=== PATIENT | male | born 1945 | race Caucasian/White ===

== ENCOUNTER 2019-04-02 19:52 | Emergency (ER) | payer OTHER ==
--- OUTSIDE RECORDS SUMMARY | 2019-04-02 19:54 | XMS REPORT ---
:1945 Author Organization [facility] Address [address] [place] [address] Dr. [address] [place] [address] Care Team Providers Name Role Phone Unavailable Unavailable Unavailable Problems This patient has no known problems. Allergies, Adverse Reactions, Alerts This patient has no known allergies or adverse reactions. Medications This patient has no known medications.
--- OUTSIDE RECORDS SUMMARY | 2019-04-02 19:54 | XMS REPORT | Summary of Care ---
:1945 Author Organization [facility] Address [address] [place] [address] Care Team Providers Name Role Phone Jack Alarcon Primary Care Provider Jack Alarcon Unavailable Reason for Referral Radiology Services (Routine) Status Reason Specialty Diagnoses / Referred By Referred To Procedures Contact Contact New Request Diagnostic Diagnoses Closed torus fracture of distal end of left fibula, initial encounter Kevin Serna, Radiology Procedures XR ANKLE <3 VW LEFT PAC [address] [place] [place] [address] Reason for Visit Reason Comments Follow-up Follow up visit on left ankle fx DOI: 01/16/2019 Encounter Details Date Type Department Care Team Description 03/13/2019 Office Visit [facility] Orthopaedic Kevin Serna, Closed torus fracture Surgery- [place] PAC of distal end of left [address], [address], initial [address] encounter (Primary Dx) [place] [address] [place], [place] [phone] [address] Allergies Active Allergy Reactions Severity Noted Date Comments Polio Virus Vaccines Rash Medium 01/01/2015 documented as of this encounter (statuses as of 03/13/2019) Medications Medication Sig Dispensed Refills Start Date End Date Status montelukast Take 10 mg by 0 Active (SINGULAIR) 10 mg mouth daily. tablet amLODIPine (NORVASC) 5 Take 5 mg by mouth 0 Active mg tablet 2 (two) times daily. PARoxetine mesylate Take 40 mg by 0 Active (PEXEVA) 40 mg tablet mouth daily. metoprolol tartrate Take 25 mg by 0 Active (LOPRESSOR) 25 mg mouth 2 (two) tablet times daily. irbesartan (AVAPRO) Take 300 mg by 0 Active 300 mg tablet mouth daily. fluticasone (FLONASE Use 2 Sprays in 0 Active ALLERGY RELIEF) 50 each nostril mcg/actuation nasal daily. spray tiotropium (SPIRIVA Inhale 18 mcg 0 Active WITH HANDIHALER) 18 daily. mcg inhalation fluticasone-salmeterol Inhale 1 Puff 2 0 Active (ADVAIR DISKUS) 250-50 (two) times daily. mcg/dose inhalation disk acetaminophen-codeine Take 1 Tab by 40 Tab 1 01/05/2015 Active (TYLENOL-CODEINE #3) mouth every 4 300-30 mg tablet (four) hours as needed for Pain (scale 4-6). DICLOFENAC 75 mg EC TAKE 1 TABLET BY 60 tablet 0 08/15/2016 Active tablet MOUTH TWICE A DAY acetaminophen-codeine Take 1 tablet by 40 tablet 0 01/23/2019 Active (TYLENOL-CODEINE #3) mouth every 4 300-30 mg (four) hours as tabletIndications: needed for Pain Closed torus fracture (scale 4-6) or of distal end of left Pain (scale 7-10). fibula, initial encounter documented as of this encounter (statuses as of 03/13/2019) Active Problems Problem Noted Date Bilateral knee pain 09/23/2015 Right hip pain 09/23/2015 documented as of this encounter (statuses as of 03/13/2019) Social History Tobacco Use Types Packs/Day Years Used Date Current Some Day Smoker Cigarettes 1.5 Smokeless Tobacco: Never Used Comments: Has one month since no smoking. Alcohol Use Drinks/Week oz/Week Comments Yes 0 Standard drinks or equivalent 0.0 Occasional Drinker Sex Assigned at Date Recorded Not on file Job Start Date Occupation Industry Not on file Not on file Not on file Travel History Travel Start Travel End No recent travel history available. documented as of this encounter Last Filed Vital Signs Vital Sign Reading Time Taken Comments Blood Pressure 125/79 03/13/2019 2:06 PM CDT Pulse 106 03/13/2019 2:06 PM CDT Temperature - - Respiratory Rate 18 03/13/2019 2:06 PM CDT Oxygen Saturation - - Inhaled Oxygen Concentration - - Weight 90.7 kg (200 lb) 03/13/2019 2:06 PM CDT Height 180.3 cm (5' 11") 03/13/2019 2:06 PM CDT Body Mass Index 27.89 03/13/2019 2:06 PM CDT documented in this encounter Progress Notes Kevin Serna, PAC - 03/13/2019 1:45 PM CDT Shawn Gant is a 73 year old male Chief Complaint Patient presents with Follow-up Follow up visit on left ankle fx DOI: 01/16/2019 Vitals: 03/13/19 1406 BP: 125/79 BP Location: Right arm Patient Position: Sitting BP CUFF SIZE: Adult Large Pulse: 106 Resp: 18 Weight: 90.7 kg (200 lb) Height: 71" (180.3 cm) [id number] [place] [place] [facility] All Vitals taken, allergies and all medications reviewed, fall risk assessed. Pain level 0/10. JOSEPH WISE MA 03/13/2019 2:11 PM Shawn Gant is a 73 year old male. F/u left ankle fracture date of injury 01/16/2019 8 weeks from date of injury. He came in with a walker today he has been using knee scooter and crutches, his appointment was rescheduled weightbearing as tolerated at this point. He arrived with crutches and a cast boot today he has a knee scooter that he uses at home having difficulty with crutches. tripped and fell at home over the threshold of the door. Dr. rocha sent in an order for plain x-rays at [facility] today the x-rays showed a fracture to his lateral malleolus and they sent him here he has not had a splint yet he has been weightbearing for the last week as tolerated. Allergies Shawn is allergic to polio virus vaccines. Medications Outpatient Medications Prior to Visit Medication Sig Dispense Refill acetaminophen-codeine (TYLENOL-CODEINE #3) 300-30 mg tablet Take 1 tablet by mouth every 4 (four) hours as needed for Pain (scale 4-6) or Pain (scale 7-10 ). 40 tablet 0 DICLOFENAC 75 mg EC tablet TAKE 1 TABLET BY MOUTH TWICE A DAY 60 tablet 0 acetaminophen-codeine (TYLENOL-CODEINE #3) 300-30 mg tablet Take 1 Tab by mouth every 4 (four) hours as needed for Pain (scale 4-6). 40 Tab 1 amLODIPine (NORVASC) 5 mg tablet Take 5 mg by mouth 2 (two) times daily. fluticasone (FLONASE ALLERGY RELIEF) 50 mcg/actuation nasal spray Use 2 Sprays in each nostril daily. fluticasone-salmeterol (ADVAIR DISKUS) 250-50 mcg/dose inhalation disk Inhale 1 Puff 2 (two) times daily. irbesartan (AVAPRO) 300 mg tablet Take 300 mg by mouth daily. metoprolol tartrate (LOPRESSOR) 25 mg tablet Take 25 mg by mouth 2 (two) times daily. montelukast (SINGULAIR) 10 mg tablet Take 10 mg by mouth daily. PARoxetine mesylate (PEXEVA) 40 mg tablet Take 40 mg by mouth daily. tiotropium (SPIRIVA WITH HANDIHALER) 18 mcg inhalation Inhale 18 mcg daily. No facility-administered medications prior to visit. Histories Past Medical History: Diagnosis Date Allergic rhinitis, cause unspecified Arthritis Asthma Bilateral knee pain 09/23/2015 COPD (chronic obstructive pulmonary disease) Hypertension Right hip pain 09/23/2015 Past Surgical History: Procedure Laterality Date FINGER ORIF Right HERNIA REPAIR KNEE ARTHROSCOPY KNEE ARTHROSCOPY Right 01/05/2015 Surgeon: Yan Church MD; Location: [facility] [place] DENTAL SURGERY PROCEDURE Social History Socioeconomic History Marital status: Spouse name: Not on file Number of children: Not on file Years of education: Not on file Highest education level: Not on file Occupational History Not on file Social Needs Financial resource strain: Not on file Food insecurity: Worry: Not on file Inability: Not on file Transportation needs: Medical: Not on file Non-medical: Not on file Tobacco Use Smoking status: Current Some Day Smoker Packs/day: 1.50 Types: Cigarettes Smokeless tobacco: Never Used Tobacco comment: Has one month since no smoking. Substance and Sexual Activity Alcohol use: Yes Alcohol/week: 0.0 oz Comment: Occasional Drinker Drug use: No Sexual activity: Not on file Lifestyle Physical activity: Days per week: Not on file Minutes per session: Not on file Stress: Not on file Relationships Social connections: Talks on phone: Not on file Gets together: Not on file Attends pentecostalism service: Not on file Active member of club or organization: Not on file Attends meetings of clubs or organizations: Not on file Relationship status: Not on file Intimate partner violence: Fear of current or ex partner: Not on file Emotionally abused: Not on file Physically abused: Not on file Forced sexual activity: Not on file Other Topics Concern Not on file Social History Narrative Not on file No family history on file. Review of Systems Constitutional: Negative. HENT: Negative. Eyes: Negative. Respiratory: Negative. Breasts: Negative. Cardiovascular: Negative. Gastrointestinal: Negative. Genitourinary: Negative. Musculoskeletal: Positive for joint swelling. Skin: Negative. Neurological: Negative. Psychiatric/Behavioral: Negative. Endocrine: Endocrine negative Vital Signs BP 125/79 (BP Location: Right arm, Patient Position: Sitting, BP CUFF SIZE: Adult Large) | Pulse 106 | Resp 18 | Ht 71" (180.3 cm) | Wt 90.7 kg (200 lb ) | BMI 27.89 kg/m Physical Exam Musculoskeletal: General: Well-developed well-nourished oriented to person place and time HEENT normocephalic atraumatic atraumatic pupils equal round reactive to light extraocular muscles intact Cervical thoracic and lumbar spine without focal deficit normal kyphosis and lordosis Chest clear to auscultation and percussion Cardiovascular regular rate and rhythm without gallop rub or murmur soft without organomegaly Normal bowel sounds Neurologic: Focal myotome or dermatomal deficits Vascular: Intact symmetrical bilateral upper and lower extremities Skin without stasis varicosities or breakdown Extremities without cyanosis clubbing or edema Lymphatics no peripheral lymphedema Psych normal mood and affect. Nontender malleolus Assessment/Plan 1. Closed torus fracture of distal end of left fibula, initial encounter XR ANKLE <3 VW LEFT Progressive wbat in boot then shoe Perform ankle range of motion in the pattern of the alphabet. This connects the brain to the ankle. Perform as many of the letter as of the alphabet as you can until you can without pain until you can do the entire alphabet. Then start ankle strengthening by getting the weakest theraband at the sporting goods store or at your pharmacy, start with pressing down like a gas pedal ankle flexion, then tie a loop with the Theraband and put the loop on the side of the foot move the foot laterally then putthe loop on the other side. Tie the Therapy band to a fixed object such as a table leg. The foot - move the foot medially. Then put the loop on the top of the foot pick the foot up these are for directions up down left and right perform in sets of 10. Do as many sets of 10. As you can without painuntil you can do 8 sets of 10. documented in this encounter Plan of Treatment Health Maintenance Due Date Last Done Comments HEPATITIS C (HCV) SCREEN 1945 DTaP,Tdap,and Td Vaccines (1 - Tdap) 1966 COLONOSCOPY 1997 Zoster Recombinant Vaccine (SHINGRIX) (1 of 2) 1997 LUNG CANCER SCREEN: Recommended for age 55-80 with 30 + 2002 pack year history Medicare Wellness Visit 2012 PNEUMOCOCCAL VACCINES 65+ (1 of 2 - PCV13) 2012 INFLUENZA VACCINE (#1) 2019 documented as of this encounter Results XR ANKLE <3 VW LEFT (03/13/2019 2:17 PM CDT) Specimen Narrative Performed At Good signs of callus formation there has been a slight shift in the PACS mortise but it is set at this point. Performing Organization Address City/State/Zipcode Phone Number PACS documented in this encounter Visit Diagnoses Diagnosis Closed torus fracture of distal end of left fibula, initial encounter - Primary documented in this encounter Insurance Payer Benefit Plan / Subscriber ID Effective Phone Address Type Group Dates MEDICARE MEDICARE PART xxxxxxxxxxx 2012-Pre [phone] Medicare A & B sent [id number] [place] [phone] [facility] [id number] 2014-Pres [employer] GROUP documented as of this encounter
--- OUTSIDE RECORDS SUMMARY | 2019-04-02 19:54 | XMS REPORT | Summary of Care ---
:1945 Author Organization [facility] Address [address] [place] [address] Care Team Providers Name Role Phone Jack Alarcon Primary Care Provider Jack Alarcon Unavailable Reason for Referral Radiology Services (Routine) Status Reason Specialty Diagnoses / Referred By Referred To Procedures Contact Contact New Request Diagnostic Diagnoses Closed torus fracture of distal end of left fibula, initial encounter Kevin Serna, Radiology Procedures XR ANKLE <3 VW LEFT PAC [address] [place] [address] [place] [address] Reason for Visit Reason Comments Follow-up Follow up visit on left ankle fx DOI: 01/16/2019 Encounter Details Date Type Department Care Team Description 03/13/2019 Office Visit [facility] Orthopaedic Kevin Serna, Closed torus fracture Surgery- [place] PAC of distal end of left [address], [address], [address] encounter (Primary Dx) [place] [address] [place], [place] [phone] [address] Allergies Active Allergy Reactions Severity Noted [...] Height: 71" (180.3 cm) [id number] [place] [place] [facility] All Vitals taken, allergies and [...] in an order for plain x-rays at [facility] today the x-rays showed a fracture [...] Right 01/05/2015 Surgeon: Yan Church MD; Location: [facility] [place]GERY PROCEDURE Social History Socioeconomic History [...] file Gets together: Not on file Attends confucianism service: Not on file Active member of [...] BOX Medicare A & B sent [id number] [place] [id number] [facility] [id number] 2014-Pres [employer] GROUP documented as of this encounter
--- OUTSIDE RECORDS SUMMARY | 2019-04-02 19:55 | XMS REPORT | Summary of Care ---
:1945 Author Organization [facility] Address [address] [place] [address] Care Team Providers Name Role Phone Jack Alarcon Primary Care Provider Jack Alarcon Unavailable Reason for Referral Radiology Services (Routine) Status Reason Specialty Diagnoses / Referred By Referred To Procedures Contact Contact New Request Diagnostic Diagnoses Closed torus fracture of distal end of left fibula, initial encounter Kevin Serna, Radiology Procedures XR ANKLE <3 VW LEFT PAC [address] [place] [address] [place] [address] Reason for Visit Reason Comments Follow-up Follow up visit on left ankle fx DOI: 01/16/2019 Encounter Details Date Type Department Care Team Description 03/13/[address] [facility] Orthopaedic Kevin Serna, Closed torus fracture Surgery- [place] PAC of distal end of left [address], [address], [address] encounter (Primary Dx) [place] [address] [place], [place] [phone] Allergies Active Allergy Reactions Severity Noted [...] CDT documented in this encounter Progress Notes Kevni Serna, PAC - 03/13/2019 1:45 PM CDT Shawn Gant is a 73 year old male Chief Complaint Patient presents with Follow-up Follow up visit on left ankle fx DOI: 01/16/2019 Vitals: 03/13/19 1406 BP: 125/79 BP Location: Right arm Patient Position: Sitting BP CUFF SIZE: Adult Large Pulse: 106 Resp: 18 Weight: 90.7 kg (200 lb) Height: 71" (180.3 cm) [id number] [place] [place] [facility] All Vitals taken, allergies and all medications [...] in an order for plain x-rays at [facility] today the x-rays showed a fracture [...] Right 01/05/2015 Surgeon: Yan Church MD; Location: [facility] [place] D[facility]GERY PROCEDURE Social History Socioeconomic History [...] file Gets together: Not on file Attends yazidi service: Not on file Active member of [...] BOX Medicare A & B sent [id number] [place]AVE[place] [phone] [facility] [id number] 2014-Pres [employer] documented as of this encounter
--- OUTSIDE RECORDS SUMMARY | 2019-04-02 19:55 | XMS REPORT | Summary of Care ---
:[address] [facility] Address [address] [place] [address] Care Team Providers Name Role Phone Jack Alarcon Primary Care Provider Jack Alarcon Unavailable Reason for Visit Reason Comments Assessment Encounter Details Date Type Department Care Team Description 03/29/2019 Telephone [facility] Orthopaedic Yan Church MD Assessment Surgery- [place] [address] [facility] [address] [facility], [place] [address] [place] [address] [place] [address] Allergies Active Allergy Reactions Severity Noted Date Comments Polio Virus Vaccines Rash Medium 01/01/2015 documented as of this encounter (statuses as of 04/02/2019) Medications Medication Sig Dispensed Refills Start Date [...] as of this encounter (statuses as of 04/02/2019) Active Problems Problem Noted Date Bilateral knee pain 09/23/2015 Right hip pain 09/23/2015 documented as of this encounter (statuses as of 04/02/2019) Social History Tobacco Use Types Packs/Day Years [...] of this encounter Last Filed Vital Signs Not on filedocumented in this encounter Plan of Treatment Health [...] 2019 documented as of this encounter Results Not on filedocumented in this encounter Insurance Payer Benefit Plan / Subscriber ID Effective Phone Address Type Group Dates MEDICARE MEDICARE PART xxxxxxxxxxx 2012-Pre [phone] Medicare A & B sent [id number] [place] [id number] [facility] [id number] 2014-Pres [employer] GROUP documented as of this encounter
--- OUTSIDE RECORDS SUMMARY | 2019-04-02 19:55 | XMS REPORT | Summary of Care ---
:1945 Author Organization [facility] Address [address] [place] [address] Care Team Providers Name Role Phone Jack Alarcon Primary Care Provider Jack Alarcon Unavailable Reason for Visit Radiology Services (Routine) Status Reason Specialty Diagnoses / Referred By Referred To Procedures Contact Contact New Request Diagnostic Diagnoses Closed torus fracture of distal end of left fibula, initial encounter Kevin Serna, Radiology Procedures XR ANKLE <3 VW LEFT PAC [address] [place] [address] Encounter Details Date Type Department Care Team Description 03/13/2019 Hospital Encounter [facility] Kevin Serna, [facility] Orthopedics - PAC Radiology [address] [place] [address] [place], [place] [phone] Allergies Active Allergy Reactions Severity Noted Date Comments Polio Virus Vaccines Rash Medium 01/01/2015 documented as of this encounter (statuses as of 03/14/2019) Medications Medication Sig Dispensed Refills Start Date [...] as of this encounter (statuses as of 03/14/2019) Active Problems Problem Noted Date Bilateral knee pain 09/23/2015 Right hip pain 09/23/2015 documented as of this encounter (statuses as of 03/14/2019) Social History Tobacco Use Types Packs/Day Years [...] (#1) 2019 documented as of this encounter Procedures Procedure Name Priority Date/Time Associated Diagnosis Comments XR ANKLE <3 VW LEFT Routine 03/13/2019 2:17 PM Closed torus Results for this CDT fracture of distal procedure are in end of left fibula, the results initial encounter section. documented in this encounter Results XR ANKLE <3 VW LEFT (03/13/2019 2:17 PM CDT) Specimen Narrative Performed At Good signs of callus formation there has been a slight shift in the PACS mortise but it is set at this point. Performing Organization Address City/State/[facility] Centercode Phone Number PACS documented in this encounter Visit Diagnoses Diagnosis Closed torus fracture of distal end of left fibula, initial encounter documented in this encounter Insurance Payer Benefit Plan / Subscriber ID Effective Phone Address Type Group Dates MEDICARE MEDICARE PART xxxxxxxxxxx 2012-Pre [phone] Medicare A & B sent [id number] [place] [id number] [facility] [id number] 2014-Pres [employer] GROUP documented as of this encounter
[2019-04-02] MEDS ORDERED: TETANUS & DIPHTHERIA TOX,ADULT 0.5 ML VIAL ONE (20:23)
[2019-04-02] MEDS ORDERED: LIDOCAINE 1% MPF 30 ML VIAL ONE (20:23)
--- NOTE | 2019-04-02 21:01 | RAD REPORT ---
EXAM DESCRIPTION: CT - Head Brain Wo Cont - 04/02/2019 8:33 pm CLINICAL HISTORY: Head injury status post fall COMPARISON: November 2018 TECHNIQUE: Computed axial tomography of the head was obtained. IV contrast was not requested. All CT scans are performed using dose optimization technique as appropriate and may include automated exposure control or mA/KV adjustment according to patient size. FINDINGS: Right frontal scalp laceration. There may be a right orbital floor fracture An intracranial bleed is not seen . Mild low-density areas within periventricular, deep and subcorti lawanda white matter likely ischemic changes secondary to small vessel disease The ventricles are normal in caliber. No extra-axial fluid collection is noted. Fluid right maxillary sinus. IMPRESSION: No acute intracranial abnormality is seen. If patient's symptoms persist MRI of the bra in would be recommended. There may be a right orbital floor fracture. CT face recommended
[2019-04-02] MEDS ORDERED: LIDOCAINE 1% W/EPI 1:100,000 MDV 20 ML VIAL ONE (21:12)
--- NOTE | 2019-04-02 22:09 | ER ---
Nurse's Notes [facility] Name: Shawn Gant Age: 73 yrs Sex: Male : 1945 Arrival Date: 04/02/2019 Time: 19:55 Bed 23 Private MD: Diagnosis: Laceration without foreign body of other part of head;Fracture of orbital floor Presentation: 04/02 20:07 Presenting complaint: Patient states: foot gave out and landed on the hardwood floor. ch laceration to above R eye. Transition of care: patient was not received from another setting of care. Onset of symptoms was April 02, 2019 at 19:50. Risk Assessment: Do you want to hurt yourself or someone else? Patient reports no desire to harm self or others. Initial Sepsis Screen: Does the patient meet any 2 criteria? No. Patient's initial sepsis screen is negative. Does the patient have a suspected source of infection? No. Patient's initial sepsis screen is negative. Care prior to arrival: None. 20:07 Method Of Arrival: Ambulatory 20:07 Acuity: MARIO 4 ch Triage Assessment: 20:09 General: Appears in no apparent distress. comfortable, Behavior is calm, cooperative, ch appropriate for age. Pain: Complains of pain in forehead and right eye Pain currently is 4 out of 10 on a pain scale. Neuro: No deficits noted. Respiratory: No deficits noted. Derm: Skin is intact, Skin is pink, warm \T\ dry. Historical: - Allergies: 20:09 Polio Virus Vaccines; - Home Meds: 20:19 blood pressure medication [Active]; - PMHx: 20:19 Hypertension; COPD; mild; - PSHx: 20:09 Knee surgery; Hernia repair; 20:19 elbow wound, L pinky finger; hip replacement; - Immunization history:: Adult Immunizations not up to date, Last tetanus immunization: unknown. - Social history:: Smoking status: Patient/guardian denies using tobacco. - Ebola Screening: : Patient negative for fever greater than or equal to 101.5 degrees Fahrenheit, and additional compatible Ebola Virus Disease symptoms Patient denies exposure to infectious person Patient denies travel to an Ebola-affected area in the 21 days before illness onset No symptoms or risks identified at this time. Screenin:53 Abuse screen: Denies threats or abuse. Denies injuries from another. Nutritional screening: No deficits noted. Tuberculosis screening: No symptoms or risk factors identified. Fall Risk Fall in past 12 months (25 points). No secondary diagnosis (0 pts). No IV (0 pts). Ambulatory Aid- None/Bed Rest/Nurse Assist (0 pts). Gait- Weak (10 pts.). Mental Status- Oriented to own ability (0 pts). Total Cooper Fall Scale indicates Low Risk Score (25-44 pts). Fall prevention measures have been instituted. Placed close to Nursing Station Frequent Obs/Assesments occuring Family Present and informed to notify staff if they need to leave bedside As available Patient and Family Educated on Fall Prevention Program and strategies. Assessment: 20:49 Reassessment: Patient appears in no apparent distress at this time. Patient and/or family updated on plan of care and expected duration. Pain level reassessed. Patient is alert, oriented x 3, equal unlabored respirations, skin warm/dry/pink. pt returned from CT, awaiting results prior to physician suturing pt. suture set up at bedside. 21:13 Reassessment: Patient appears in no apparent distress at this time. No changes from previously documented assessment. Patient and/or family updated on plan of care and expected duration. Pain level reassessed. Patient is alert, oriented x 3, equal unlabored respirations, skin warm/dry/pink. AWAITING CT FACE PRIOR TO PHYSICIAN SUTURING PT. Vital Signs: 20:09 BP 114 / 78; Pulse 85; Resp 14; Pulse Ox 100% on R/A; Pain 4/10; ch 21:13 BP 110 / 64; Pulse 80; Resp 14; Temp 98.8; Pulse Ox 99% on R/A; Pain 5/10; ch 22:00 BP 127 / 74; Pulse 75; Resp 16; Pulse Ox 99% on R/A; lc1 Akhil Coma Score: 22:04 Eye Response: spontaneous(4). Verbal Response: oriented(5). Motor Response: obeys gs commands(6). Total: 15. ED Course: 19:55 Patient arrived in ED. cf2 20:02 Dee Dee Kenyon, FIONA is Primary Nurse. 20:05 Tyson Rodas MD is Attending Physician. gs 20:08 Triage completed. 20:09 Arm band placed on left wrist. Patient placed in an exam room, on a stretcher. 20:33 CT completed. Patient tolerated procedure well. Patient moved to CT. Patient moved back az from CT. 20:34 CT Head Brain wo Cont In Process Unspecified. EDMS 21:43 CT Facial Bones W/O Con In Process Unspecified. EDMS 21:53 No apparent distress. Resting quietly. 21:53 Patient has correct armband on for positive identification. Bed in low position. Call light in reach. Side rails up X 1. Adult w/ patient. Report given to Kenia. Pulse ox on. NIBP on. Door closed. Noise minimized. Warm blanket given. 21:53 Patient did not have IV access during this emergency room visit. 22:10 Assist provider with laceration repair on outer aspect of right eyebrow Performed by 1 Tyson Rodas MD. 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 Exp: 11/27/2020. Lot #: [id number]. } Route: IM; Site: left deltoid; 22:09 Follow up: Response: No adverse reaction [facility] Outcome: 22:08 Discharge ordered by . 22:10 Discharged to home ambulatory, with significant other. [facility] 22:10 Condition: good 22:10 Discharge instructions given to patient, Instructed on discharge instructions, medication usage, wound care, Demonstrated understanding of instructions, follow-up care, medications, wound care, Prescriptions given X 1. 22:21 Patient left the ED. [facility] Signatures: Dispatcher [employer] EDWY Dee Dee Kenyon, FIONA JAIMES Kenia Hearn 1 Epi Aguilera Gregory, MD MD Darius Lee 2
--- NOTE | 2019-04-02 22:10 | EDPHYS ---
Physician Documentation [facility] Name: Shawn Gant Age: 73 yrs Sex: Male : 1945 Arrival Date: 04/02/2019 Time: 19:55 Bed 23 Private MD: ED Physician Tyson Rodas HPI: 04/02 22:04 This 73 yrs old Male presents to ER via Ambulatory with complaints of LAC TO gs EYE. 22:04 The complaints affect the middle aspect of right eyebrow and outer aspect of right gs eyebrow. Context of injury: resulted from a fall, while walking. Onset: The symptoms/episode began/occurred acutely, just prior to arrival. Associated signs and symptoms: Loss of consciousness: This patient did not experience any loss of consciousness. Pertinent negatives: biting tongue, shortness of breath, weakness in extremities, syncope. Severity of symptoms: At their worst the symptoms were moderate, in the emergency department the symptoms are unchanged. The patient has not experienced similar symptoms in the past. Historical: - Allergies: 20:09 Polio Virus Vaccines; ch - Home Meds: 20:19 blood pressure medication [Active]; ch - PMHx: 20:19 Hypertension; COPD; mild; ch - PSHx: 20:09 Knee surgery; Hernia repair; 20:19 elbow wound, L pinky finger; hip replacement; - Immunization history:: Adult Immunizations not up to date, Last tetanus immunization: unknown. - Social history:: Smoking status: Patient/guardian denies using tobacco. - Ebola Screening: : Patient negative for fever greater than or equal to 101.5 degrees Fahrenheit, and additional compatible Ebola Virus Disease symptoms Patient denies exposure to infectious person Patient denies travel to an Ebola-affected area in the 21 days before illness onset No symptoms or risks identified at this time. ROS: 22:04 All other systems are negative. gs Exam: 22:04 Eyes: Pupils equal round and reactive to light, extra-ocular motions intact. Lids and gs lashes normal. Conjunctiva and sclera are non-icteric and not injected. Cornea within normal limits. Periorbital areas with no swelling, redness, or edema. ENT: Nares patent. No nasal discharge, no septal abnormalities noted. Tympanic membranes are normal and external auditory canals are clear. Oropharynx with no redness, swelling, or masses, exudates, or evidence of obstruction, uvula midline. Mucous membranes moist. Neck: Trachea midline, no thyromegaly or masses palpated, and no cervical lymphadenopathy. Supple, full range of motion without nuchal rigidity, or vertebral point tenderness. No Meningismus. Chest/axilla: Normal chest wall appearance and motion. Nontender with no deformity. No lesions are appreciated. Cardiovascular: Regular rate and rhythm with a normal S1 and S2. No gallops, murmurs, or rubs. Normal PMI, no JVD. No pulse deficits. Respiratory: Lungs have equal breath sounds bilaterally, clear to auscultation and percussion. No rales, rhonchi or wheezes noted. No increased work of breathing, no retractions or nasal flaring. Abdomen/GI: Soft, non-tender, with normal bowel sounds. No distension or tympany. No guarding or rebound. No evidence of tenderness throughout. Back: No spinal tenderness. No costovertebral tenderness. Full range of motion. Skin: Warm, dry with normal turgor. Normal color with no rashes, no lesions, and no evidence of cellulitis. MS/ Extremity: Pulses equal, no cyanosis. Neurovascular intact. Full, normal range of motion. Neuro: Awake and alert, GCS 15, oriented to person, place, time, and situation. Cranial nerves II-XII grossly intact. Motor strength 5/5 in all extremities. Sensory grossly intact. Cerebellar exam normal. Normal gait. 22:04 Constitutional: The patient appears alert, awake. 22:04 Head/face: Noted is a laceration(s), that is deep, 5 cm(s). Vital Signs: 20:09 BP 114 / 78; Pulse 85; Resp 14; Pulse Ox 100% on R/A; Pain 4/10; ch 21:13 BP 110 / 64; Pulse 80; Resp 14; Temp 98.8; Pulse Ox 99% on R/A; Pain 5/10; ch 22:00 BP 127 / 74; Pulse 75; Resp 16; Pulse Ox 99% on R/A; lc1 Akhil Coma Score: 22:04 Eye Response: spontaneous(4). Verbal Response: oriented(5). Motor Response: obeys gs commands(6). Total: 15. Laceration: 22:04 Wound Repair of 5.5cm ( 2.2in ) muscle penetrating laceration to outer aspect of right gs eyebrow. Distal neuro/vascular/tendon intact. Anesthesia: Local anesthetic administered with 3 mls of 1% lidocaine w/ Epi. Wound prep: Simple cleansing with betadine, Wound irrigation by me. Subcutaneous tissue closed with 4 4-0 Vicryl using simple sutures and sterile technique. Skin closed with 8 5-0 Prolene using simple sutures and sterile technique. Patient tolerated well. MDM: 20:12 Patient medically screened. 22:04 Differential diagnosis: Hematoma on Laceration of Intracranial bleed- Concussion. Data reviewed: vital signs, nurses notes, radiologic studies. Counseling: I had a detailed discussion with the patient and/or guardian regarding: the historical points, exam findings, and any diagnostic results supporting the discharge/admit diagnosis, the need for outpatient follow up. 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 Exp: 11/27/2020. Lot #: [id number]. } Route: IM; Site: left deltoid; 22:09 Follow up: Response: No adverse reaction [facility] Disposition: 04/02/19 22:08 Discharged to Home. Impression: Laceration without foreign body of other part of head, Fracture of orbital floor. - Condition is Stable. - Discharge Instructions: Laceration Care, Adult, [id number]. - Prescriptions for Keflex 500 mg Oral Capsule - take 1 capsule by ORAL route every 12 hours for 7 days; 14 capsule. - Medication Reconciliation Form, Thank You Letter, Antibiotic Education, Prescription Opioid Use form. - Follow up: Private Physician; When: 1 week; Reason: Staple/Suture removal. Signatures: Dispatcher [employer] EDDee Dee Frankel RN RN Kenia Hearn 1 Tyson Rodas MD MD Corrections: (The following items were deleted from the chart) 22:21 22:08 04/02/2019 22:08 Discharged to Home. Impression: Laceration without foreign body lc1 of other part of head; Fracture of orbital floor. Condition is Stable. Forms are Medication Reconciliation Form, Thank You Letter, Antibiotic Education, Prescription Opioid Use. Follow up: Private Physician; When: 1 week; Reason: Staple/Suture removal. gs
[2019-04-02 22:27] VITALS: TEMP 98.8; O2SAT 99
[2019-04-02 22:29] VITALS: BP 127/74
--- NOTE | 2019-04-03 10:07 | RAD REPORT ---
EXAM DESCRIPTION: CT - Facial Bones W/ Mpr - 04/02/2019 9:36 pm CLINICAL HISTORY: FACIAL PAIN TECHNIQUE: Axial computed tomography images of the face without intravenous contrast. Sagittal and coronal reformatted images were created and reviewed. This CT exam was performed using one or more of the following dose reduction techniques: automated exposure control, adjustment of the mA and/o r kV according to patient size, and/or use of iterative reconstruction technique. COMPARISON: No relevant prior studies available. FINDINGS: Limitations: None. Bones/joints: There is subtle fracture of a few of the right anterior ethmoid air cells. There is fracture of the right orbital floor with about 2 mm depression of a small fragment. Involvement of the lamina papyracea posteriorly not excluded. No entrapment. Mild apical erosion of the left teeth numbers 19 and 20. No fracture. Soft tissues: There is a small right frontal scalp laceration. Orbits: Unremarkable. Sinuses: There is chronic bilateral maxillary and ethmoid sinus thickening. There is probable superimposed mild hemorrhage within the right maxillary sinus. IMPRESSION: 1. There is a small right frontal scalp laceration. 2. Acute fracture right orbit and ethmoid air cells as above. Electronically signed by: Valerie Nino MD 04/02/2019 9:54 PM CDT Due to temporary technical issues with the PACS/Fluency reporting system, reports are being signed by the in house radiologist as a courtesy to ensure prompt reporting. The interpreting radiologist is f ully responsible for the content of the report.
== END 2019-04-02 22:21 | disposition home or self-care (01) ==
LOC: ER 19:52
PROC: 0JQ10ZZ Repair Face Subcutaneous Tissue and Fascia, Open Approach (ICD-10-PCS; principal; 2019-04-02)
DX: S02.31XA Fracture of orbital floor, right side, initial encounter for closed fracture (principal); S01.81XA Laceration without foreign body of other part of head, initial encounter; I10 Essential (primary) hypertension; W18.30XA Fall on same level, unspecified, initial encounter; Y93.9 Activity, unspecified; Y92.019 Unspecified place in single-family (private) house as the place of occurrence of the external cause; Z23 Encounter for immunization
CPT/HCPCS: 70450; 70486; 76377; 90471; 90714; 99284

== ENCOUNTER 2020-01-08 23:58 | Inpatient (IN) | payer OTHER ==
--- OUTSIDE RECORDS SUMMARY | 2020-01-09 | XMS REPORT | Continuity of Care Document ---
:1945 Author Organization [facility] t Address [address] [place] [address] Care Team Providers Name Role Phone Je Church MD Attending Clinician Alirio Ashford Attending Clinician Problems This patient has no known problems. Allergies, Adverse Reactions, Alerts This patient has no known allergies or adverse reactions. Medications This patient has no known medications. Procedures This patient has no known procedures. Encounters Start End Encounter Admission Attending Care Care Encounter Source Date/Time Date/Time Type Type Clinicians Facility Department ID 2019-03-29 2019-03-29 Telephone Church, [facility] [id number] 00:00:00 00:00:00 [facility] Laiya[place]ao [id number] Surgical [id number] Specialti [id number] [address] [place] 2019-03-13 2019-03-13 [facility] [id number] 14:17:47 23:59:00 Encounter Kevin Amezquita Laiyaoyao [id number] Surgical [id number] Specialti [id number] [address] [place] 2019-03-13 2019-03-13 Office [facility] [id number] 14:01:05 14:50:54 Visit Kevin Amezquita Laiyaoyao [id number] Surgical [id number] Specialti [id number] [address] Results This patient has no known results.
[2020-01-09] MEDS ORDERED: METHYLPREDNISOLONE 125 MG INJ ONE (00:41)
[2020-01-09] MEDS ORDERED: NA CHLORIDE 0.9% 1,000 ML ONE ×3 (00:42→05:27)
[2020-01-09] MEDS ORDERED: IPRATROPIUM BROM 0.5MG/2.5ML ONE (00:42)
[2020-01-09] MEDS ORDERED: ACETAMINOPHEN 500 MG TAB ONE (00:42)
[2020-01-09] MEDS ORDERED: LEVALBUTEROL 1.25 MG/3 ML NEB ONE ×2 (00:42→02:58)
[2020-01-09 01:08] LABS: Absolute Lymphocytes (CBC) 2.8 K/uL (0.7-4.9); Basophils % 0.7 % (0-1.3); Hematocrit 46.8 % (39.6-49.0); Lymphocytes % 20.7 % (15.3-44.8); RBC Red Blood Cell Count 4.93 M/uL (4.33-5.43)
--- NOTE | 2020-01-09 01:20 | EDPHYS ---
Physician Documentation [facility] Name: Shawn Gant Age: 74 yrs Sex: Male : 1945 Arrival Date: 01/09/2020 Time: 00:00 Bed 19 Private MD: ED Physician Enoc Cadena HPI: 01/08 00:30 This 74 yrs old Male presents to ER via Wheelchair with complaints of marcial Shortness Of Breath, Fever, Vomiting, Chills. 00:30 The patient has shortness of breath at rest, with light activity. Onset: The marcial symptoms/episode began/occurred last night. Duration: The symptoms are continuous, and are steadily getting worse. The patient's shortness of breath is aggravated by coughing, light activity. Associated signs and symptoms: The patient has no apparent associated signs or symptoms. Severity of symptoms: At their worst the symptoms were moderate in the emergency department the symptoms are unchanged. The patient has not experienced similar symptoms in the past. Historical: - Allergies: 00:26 Polio Virus Vaccines; lp1 - Home Meds: 01:01 Xanax Oral [Active]; increse elipta [Active]; paroxetine oral oral [Active]; Metoprolol tl1 Tartrate Oral [Active]; amlodipine oral [Active]; montelukast oral oral [Active]; Folbic oral oral [Active]; Advair Diskus 250-50 mcg/dose Inhl dsdv [Active]; fluticasone [Active]; irbesartan oral oral [Active]; loratadine oral oral [Active]; - PMHx: 00:26 COPD; mild; Hypertension; Borderline DM; lp1 - PSHx: 00:26 hip surgery; Hernia repair; elbow surgery; Knee surgery; lp1 - Immunization history:: Adult Immunizations up to date. - Social history:: Smoking status: Patient/guardian denies using tobacco, the patient reports quitting approximately 5 years ago. ROS: 00:31 Eyes: Negative for injury, pain, redness, and discharge, ENT: Negative for injury, marcial pain, and discharge, Neck: Negative for injury, pain, and swelling, Cardiovascular: Negative for chest pain, palpitations, and edema, Abdomen/GI: Negative for abdominal pain, nausea, vomiting, diarrhea, and constipation, Back: Negative for injury and pain, : Negative for injury, bleeding, discharge, and swelling, MS/Extremity: Negative for injury and deformity, Skin: Negative for injury, rash, and discoloration, Psych: Negative for depression, anxiety, suicide ideation, homicidal ideation, and hallucinations, Allergy/Immunology: Negative for hives, rash, and allergies, Endocrine: Negative for neck swelling, polydipsia, polyuria, polyphagia, and marked weight changes, Hematologic/Lymphatic: Negative for swollen nodes, abnormal bleeding, and unusual bruising. 00:31 Constitutional: Positive for fever. 00:31 Respiratory: Positive for cough, wheezing, inspiratory, expiratory. 00:31 MS/extremity: Negative for acute changes, decreased range of motion, swelling, tenderness. Exam: 00:31 Constitutional: This is a well developed, well nourished patient who is awake, alert, marcial and in no acute distress. Head/Face: Normocephalic, atraumatic. Eyes: Pupils equal round and reactive to light, extra-ocular motions intact. Lids and lashes normal. Conjunctiva and sclera are non-icteric and not injected. Cornea within normal limits. Periorbital areas with no swelling, redness, or edema. ENT: Nares patent. No nasal discharge, no septal abnormalities noted. Tympanic membranes are normal and external auditory canals are clear. Oropharynx with no redness, swelling, or masses, exudates, or evidence of obstruction, uvula midline. Mucous membranes moist. Neck: Trachea midline, no thyromegaly or masses palpated, and no cervical lymphadenopathy. Supple, full range of motion without nuchal rigidity, or vertebral point tenderness. No Meningismus. Chest/axilla: Normal chest wall appearance and motion. Nontender with no deformity. No lesions are appreciated. Abdomen/GI: Soft, non-tender, with normal bowel sounds. No distension or tympany. No guarding or rebound. No evidence of tenderness throughout. Back: No spinal tenderness. No costovertebral tenderness. Full range of motion. Male : Normal genitalia with no discharge or lesions. Skin: Warm, dry with normal turgor. Normal color with no rashes, no lesions, and no evidence of cellulitis. MS/ Extremity: Pulses equal, no cyanosis. Neurovascular intact. Full, normal range of motion. Neuro: Awake and alert, GCS 15, oriented to person, place, time, and situation. Cranial nerves II-XII grossly intact. Motor strength 5/5 in all extremities. Sensory grossly intact. Cerebellar exam normal. Normal gait. Psych: Awake, alert, with orientation to person, place and time. Behavior, mood, and affect are within normal limits. 00:31 Cardiovascular: Rate: tachycardic, Rhythm: regular, Pulses: Pulses are 4+ in bilateral radial, brachial, femoral, popliteal, posterior tibial and and dorsalis pedis arteries.. Heart sounds: normal, Edema: is not appreciated, JVD: is not appreciated. 00:31 Respiratory: the patient does not display signs of respiratory distress, Respirations: labored breathing, that is mild, Breath sounds: decreased breath sounds, rhonchi, wheezing: inspiratory expiratory Respiratory rate: 24 00:31 Musculoskeletal/extremity: DVT Exam: No signs of deep vein thrombosis. no pain, no swelling, no tenderness, negative Homans' sign noted on exam, no appreciated bluish discoloration, no erythema, no increased warmth. 00:42 ECG was reviewed by the Attending Physician. [facility] 04:26 ECG was reviewed by the Attending Physician. [facility] Vital Signs: 00:21 BP 158 / 112; Pulse 146; Resp 24; Temp 100(O); Pulse Ox 96% on R/A; Weight 95.25 kg lp1 (R); Height 5 ft. 11 in. (180.34 cm); 01:30 BP 137 / 76; Pulse 133; Resp 24; Pulse Ox 98% on 2 lpm NC; lp1 02:00 BP 135 / 88; Pulse 141; Resp 25; Pulse Ox 93% on 2 lpm NC; lp1 02:30 BP 145 / 87; Pulse 136; Resp 24; Pulse Ox 94% on 2 lpm NC; lp1 03:00 BP 148 / 86; Pulse 129; Resp 20; Pulse Ox 92% on 2 lpm NC; lp1 04:00 BP 129 / 79; Pulse 120; Resp 22; Pulse Ox 95% on 2 lpm NC; lp1 00:21 Body Mass Index 29.29 (95.25 kg, 180.34 cm) 1 MDM: 00:15 Patient medically screened. [facility] 00:33 Data reviewed: vital signs, nurses notes, old medical records, lab test result(s), EKG, [facility] radiologic studies, plain films. 00:34 Differential diagnosis: asthma, CHF exacerbation, Chronic Obstructive Pulmonary Disease marcial bronchitis, flu, URI, pneumonia, pulmonary edema, Sepsis. Antibiotic administration: Rocephin and Zithromax given. The patient's [place] Deep Vein Thrombosis Score was calculated as follows: Previous DVT/PE (1.5 Pts) Total Score: 0-2 Pts- Low Risk. The patient's pulmonary embolism risk score was calculated as follows: the patients heart rate is greater than 100 beats per minute (1.5 Pts) Total Score: 0-2 points. This patient was found to be at low risk for a pulmonary embolism by using the Well's assessment criteria. Immunization status: Pneumococcal vaccine: Influenza vaccine: Data interpreted: cafeteria monitor: rate is 146 beats/min, rhythm is regular, Pulse oximetry: on 2L(s) per nasal canula, is 96 %. Test interpretation: by ED physician or midlevel provider: ECG, plain radiologic studies. 01/08 00:25 Order name: Basic Metabolic Panel [facility] 01/08 00:25 Order name: CBC with Diff; Complete Time: : [facility] 01/08 00:25 Order name: LFT's; Complete Time: : [facility] 01/08 00:25 Order name: Magnesium; Complete Time: : [facility] 01/08 00:25 Order name: NT PRO-BNP; Complete Time: : [facility] 01/08 00:25 Order name: Troponin (emerg Dept Use Only); Complete Time: :43 [facility] 01/08 00:25 Order name: Blood Culture Adult (2) [facility] 01/08 00:25 Order name: Influenza Screen (a \T\ B); Complete Time: 02:25 [facility] 01/08 00:25 Order name: Lipase; Complete Time: :43 [facility] 01/08 00:25 Order name: Strep; Complete Time: 02:25 [facility] 01/08 00:26 Order name: Basic Metabolic Panel; Complete Time: :43 EDMS 01/08 00:40 Order name: Lactate; Complete Time: :43 [facility] 01/08 00:25 Order name: XRAY Chest (1 view) [facility] 01/08 00:40 Order name: Procalcitonin; Complete Time: 02:25 [facility] 01/08 01:11 Order name: COVID-19 [facility] 01/08 03:07 Order name: CT Chest For PE Angio [facility] 01/08 04:16 Order name: Troponin (emerg Dept Use Only) [facility] 01/08 04:25 Order name: Urine Culture [facility] 01/08 04:45 Order name: Lactate Sepsis 2 HR Follow-up; Complete Time: 06:35 EDDE 01/08 05:24 Order name: Troponin I; Complete Time: 06:35 EDMS 01/08 00:25 Order name: EKG; Complete Time: 00:27 [facility] 01/08 00:25 Order name: Cardiac monitoring; Complete Time: 00: [facility] 01/08 00:25 Order name: EKG - Nurse/Tech; Complete Time: 00: [facility] 01/08 00:25 Order name: IV Saline Lock; Complete Time: 00: [facility] 01/08 00:25 Order name: Labs collected and sent; Complete Time: 00: [facility] 01/08 00:25 Order name: O2 Per Protocol; Complete Time: 00: [facility] 01/08 00:25 Order name: O2 Sat Monitoring; Complete Time: 00: [facility] 01/08 03:42 Order name: EKG; Complete Time: 03:43 [facility] 01/08 03:42 Order name: EKG - Nurse/Tech; Complete Time: 04:43 [facility] EC:42 Rate is 139 beats/min. Rhythm is regular. QRS Rampart is Normal. MA interval is normal. [facility] QRS interval is normal. QT interval is normal. No Q waves. T waves are Normal. Clinical impression: Sinus tachycardia and No evidence of ischemia. Interpreted by me. Reviewed by me. 04:26 Rate is 115 beats/min. Rhythm is regular. QRS Rampart is Normal. MA interval is normal. [facility] QRS interval is normal. QT interval is normal. No Q waves. T waves are Normal. No ST changes noted. Clinical impression: Sinus tachycardia and No evidence of ischemia. Interpreted by me. Reviewed by me. Administered Medications: 00:40 Drug: NS 0.9% 1000 ml Route: IV; Rate: 1 bolus; Site: right antecubital; lp1 00:40 Drug: Xopenex 3.75 mg Route: Inhalation; lp1 00:40 Drug: AtroVENT Aerosol 0.5 mg Route: Inhalation; lp1 00:40 Drug: Tylenol 1000 mg Route: PO; lp1 00:45 Drug: SOLU-Medrol 125 mg Route: IVP; Site: right antecubital; lp1 01:37 Drug: Rocephin 2 grams Route: IV; Rate: per protocol; Site: right antecubital; fu 01:40 Drug: Zofran (Ondansetron) 4 mg Route: IVP; Site: right antecubital; fu 02:37 Follow up: Response: No adverse reaction fu 01:42 Drug: Zithromax 500 mg Route: IVPB; Infused Over: 1 hrs; Site: right antecubital; fu 01:50 Drug: NS 0.9% 1000 ml Route: IV; Rate: 1 bolus; Site: right antecubital; fu 02:05 Drug: Pepcid 20 mg Route: IVP; Site: right antecubital; fu 03:50 Follow up: Response: No adverse reaction fu 02:07 Drug: GI Cocktail without - (Maalox Suspension 30 ml, Lidocaine Liquid 2 % 15 fu ml) Route: PO; 03:07 Follow up: Response: No adverse reaction fu 02:56 Drug: Xopenex 1.25 mg Route: Inhalation; fu 02:58 Drug: Magnesium Sulfate 1 grams Route: IVPB; Infused Over: 1 hrs; Site: right fu antecubital; 02:58 Drug: NS 0.9% 1000 ml Route: IV; Rate: 1 bolus; Site: right antecubital; fu 05:12 Follow up: Response: No adverse reaction; IV Intake: 1000ml fu 03:14 Drug: morphine 4 mg Route: IVP; Site: right antecubital; fu 03:44 Follow up: Response: Pain is decreased fu 03:20 Drug: Motrin 600 mg Route: PO; fu 04:20 Follow up: Response: Temperature is decreased fu 04:41 Drug: Dilaudid 0.5 mg Route: IVP; Site: right antecubital; fu 05:10 Follow up: Response: Pain is decreased fu Disposition: 01/09/20 01:19 Hospitalization ordered by Jack Alarcon for Inpatient Admission. Preliminary diagnosis are Fever, unspecified, Weakness, Chronic obstructive pulmonary disease with (acute) exacerbation, Vomiting, Hypoxemia, Hypomagnesemia, Pneumonia due to other specified bacteria. - Bed requested for Telemetry/MedSurg (Inpatient). - Status is Inpatient Admission. fu - Condition is Fair. - Problem is new. - Symptoms have improved. Signatures: Dispatcher [employer] EDMS Enoc Cadena MD MD cha Pena, Laura, RN RN lp1 Jo-Ann Coffman RN RN tl1 Philip Yeung, RN RN fu Corrections: (The following items were deleted from the chart) 01:15 00:27 COVID-19 Plasma+[id number].BRZ ordered. [facility] EDDE 01:15 00:29 ABO/RH typing ordered. [facility] EDDE 01:28 01:19 Hospitalization Ordered by Jack Alarcon MD for Inpatient Admission. Preliminary tl1 diagnosis is Fever, unspecified; Weakness; Chronic obstructive pulmonary disease with (acute) exacerbation; Vomiting; Hypoxemia. Bed requested for Telemetry/MedSurg (Inpatient). Status is Inpatient Admission. Condition is Fair. Problem is new. Symptoms have improved. [facility] 01:43 01:28 01/09/2020 01:19 Hospitalization Ordered by Jack Alarcon MD for Inpatient marcial Admission. Preliminary diagnosis is Fever, unspecified; Weakness; Chronic obstructive pulmonary disease with (acute) exacerbation; Vomiting; Hypoxemia. Bed requested for [facility] ER HOLD. Status is Inpatient Admission. Condition is Fair. Problem is new. Symptoms have improved. 1 05:59 01:43 01/09/2020 01:19 Hospitalization Ordered by Jack Alarcon MD for Inpatient tl1 Admission. Preliminary diagnosis is Fever, unspecified; Weakness; Chronic obstructive pulmonary disease with (acute) exacerbation; Vomiting; Hypoxemia; Hypomagnesemia. Bed requested for [facility] ER HOLD. Status is Inpatient Admission. Condition is Fair. Problem is new. Symptoms have improved. [facility] 06:38 05:59 01/09/2020 01:19 Hospitalization Ordered by Jack Alarcon MD for Inpatient marcial Admission. Preliminary diagnosis is Fever, unspecified; Weakness; Chronic obstructive pulmonary disease with (acute) exacerbation; Vomiting; Hypoxemia; Hypomagnesemia. Bed requested for Telemetry/MedSurg (Inpatient). Status is Inpatient Admission. Condition is Fair. Problem is new. Symptoms have improved. tl1 06:46 06:38 01/09/2020 01:19 Hospitalization Ordered by Jack Alarcon MD for Inpatient fu Admission. Preliminary diagnosis is Fever, unspecified; Weakness; Chronic obstructive pulmonary disease with (acute) exacerbation; Vomiting; Hypoxemia; Hypomagnesemia; Pneumonia due to other specified bacteria. Bed requested for Telemetry/MedSurg (Inpatient). Status is Inpatient Admission. Condition is Fair. Problem is new. Symptoms have improved. marcial
--- NOTE | 2020-01-09 01:20 | ER ---
Nurse's Notes [facility] Name: Shawn Gant Age: 74 yrs Sex: Male : 1945 Arrival Date: 01/09/2020 Time: 00:00 Bed 19 Private MD: Diagnosis: Fever, unspecified;Weakness;Chronic obstructive pulmonary disease with (acute) exacerbation;Vomiting;Hypoxemia;Hypomagnesemia;Pneumonia due to other specified bacteria Presentation: 01/08 00:21 Chief complaint: Patient states: Shortness of breath that began this evening, woke him lp1 from sleep, feeling fever, chills, vomited x 1. Coronavirus screen: Surgical mask placed on patient. Patient moved to private room, placed in contact and droplet isolation with eye protection until further assessment. Patient denies a cough. Patient reports shortness of breath or difficulty breathing. Patient reports a measured and/or subjective temperature greater than 100.4F. Patient denies travel on a cruise ship or to a country the [facility] currently lists as an affected area. Patient denies contact with known and/or suspected case of COVID-19. Ebola Screen: No symptoms or risks identified at this time. Initial Sepsis Screen: Does the patient meet any 2 criteria? RR > 20 per min. HR > 90 bpm. Does the patient have a suspected source of infection? Yes: Productive cough/pneumonia. Risk Assessment: Do you want to hurt yourself or someone else? Patient reports no desire to harm self or others. Onset of symptoms was January 09, 2020. 00:21 Method Of Arrival: Wheelchair lp1 00:21 Acuity: MARIO 2 lp1 Triage Assessment: 05:09 Respiratory: fu Historical: - Allergies: 00:26 Polio Virus Vaccines; lp1 - Home Meds: 01:01 Xanax Oral [Active]; increse elipta [Active]; paroxetine oral oral [Active]; Metoprolol tl1 Tartrate Oral [Active]; amlodipine oral [Active]; montelukast oral oral [Active]; Folbic oral oral [Active]; Advair Diskus 250-50 mcg/dose Inhl dsdv [Active]; fluticasone [Active]; irbesartan oral oral [Active]; loratadine oral oral [Active]; - PMHx: 00:26 COPD; mild; Hypertension; Borderline DM; lp1 - PSHx: 00:26 hip surgery; Hernia repair; elbow surgery; Knee surgery; lp1 - Immunization history:: Adult Immunizations up to date. - Social history:: Smoking status: Patient/guardian denies using tobacco, the patient reports quitting approximately 5 years ago. Screenin:29 Abuse screen: Denies threats or abuse. Denies injuries from another. Nutritional lp1 screening: No deficits noted. Tuberculosis screening: No symptoms or risk factors identified. 05:09 Fall Risk None identified. fu Assessment: 00:30 General: Appears distressed, uncomfortable, Behavior is cooperative, appropriate for fu age, anxious, Reports chills for fever for. Pain: Complains of pain in epigastric area Pain currently is 6 out of 10 on a pain scale. Quality of pain is described as burning, Pain began 2 hours ago. Aggravated by sittimg. Cardiovascular: Rhythm is sinus tachycardia. Respiratory: Airway is patent Respiratory effort is labored, Respiratory pattern is tachypnea Breath sounds with wheezes bilaterally. GI: Reports epigastric pain, nausea, vomiting. 02:00 Reassessment: Patient appears in no apparent distress at this time. Patient and/or fu family updated on plan of care and expected duration. Pain level reassessed. Patient is alert, oriented x 3, equal unlabored respirations, skin warm/dry/pink. Patient states feeling better. Patient states symptoms have improved. 04:00 Reassessment: Patient sitting up at bedside, appears in no apparent distress Patient lp1 states feeling better. Patient states symptoms have improved. Neuro: Level of Consciousness is awake, alert, obeys commands. 05:07 Reassessment: Patient appears in no apparent distress at this time. Patient and/or fu family updated on plan of care and expected duration. Pain level reassessed. Patient is alert, oriented x 3, equal unlabored respirations, skin warm/dry/pink. Vital Signs: 00:21 BP 158 / 112; Pulse 146; Resp 24; Temp 100(O); Pulse Ox 96% on R/A; Weight 95.25 kg lp1 (R); Height 5 ft. 11 in. (180.34 cm); 01:30 BP 137 / 76; Pulse 133; Resp 24; Pulse Ox 98% on 2 lpm NC; lp1 02:00 BP 135 / 88; Pulse 141; Resp 25; Pulse Ox 93% on 2 lpm NC; lp1 02:30 BP 145 / 87; Pulse 136; Resp 24; Pulse Ox 94% on 2 lpm NC; lp1 03:00 BP 148 / 86; Pulse 129; Resp 20; Pulse Ox 92% on 2 lpm NC; lp1 04:00 BP 129 / 79; Pulse 120; Resp 22; Pulse Ox 95% on 2 lpm NC; lp1 00:21 Body Mass Index 29.29 (95.25 kg, 180.34 cm) lp1 ED Course: 00:00 Patient arrived in ED. cl3 00:15 Enoc Cadena MD is Attending Physician. marcial 00:15 Inserted saline lock: 20 gauge in right antecubital area, using aseptic technique. lp1 Blood collected. By FIONA Busch. 00:24 Philip Yeung RN is Primary Nurse. fu 00:25 Triage completed. lp1 00:25 Arm band placed on. lp1 00:27 Patient has correct armband on for positive identification. Placed in gown. Bed in low lp1 position. quality assurance monitor body on. Pulse ox on. NIBP on. 00:49 XRAY Chest (1 view) In Process Unspecified. EDMS 01:18 Jack Alarcon MD is Hospitalizing Provider. marcial 04:54 Troponin (emerg Dept Use Only) Sent. fu 05:08 No provider procedures requiring assistance completed. fu 05:09 Patient admitted, IV remains in place. fu 06:03 Urine Culture Sent. fu Administered Medications: 00:40 Drug: NS 0.9% 1000 ml Route: IV; Rate: 1 bolus; Site: right antecubital; lp1 00:40 Drug: Xopenex 3.75 mg Route: Inhalation; lp1 00:40 Drug: AtroVENT Aerosol 0.5 mg Route: Inhalation; lp1 00:40 Drug: Tylenol 1000 mg Route: PO; lp1 00:45 Drug: SOLU-Medrol 125 mg Route: IVP; Site: right antecubital; lp1 01:37 Drug: Rocephin 2 grams Route: IV; Rate: per protocol; Site: right antecubital; fu 01:40 Drug: Zofran (Ondansetron) 4 mg Route: IVP; Site: right antecubital; fu 02:37 Follow up: Response: No adverse reaction fu 01:42 Drug: Zithromax 500 mg Route: IVPB; Infused Over: 1 hrs; Site: right antecubital; fu 01:50 Drug: NS 0.9% 1000 ml Route: IV; Rate: 1 bolus; Site: right antecubital; fu 02:05 Drug: Pepcid 20 mg Route: IVP; Site: right antecubital; fu 03:50 Follow up: Response: No adverse reaction fu 02:07 Drug: GI Cocktail without - (Maalox Suspension 30 ml, Lidocaine Liquid 2 % 15 fu ml) Route: PO; 03:07 Follow up: Response: No adverse reaction fu 02:56 Drug: Xopenex 1.25 mg Route: Inhalation; fu 02:58 Drug: Magnesium Sulfate 1 grams Route: IVPB; Infused Over: 1 hrs; Site: right fu antecubital; 02:58 Drug: NS 0.9% 1000 ml Route: IV; Rate: 1 bolus; Site: right antecubital; fu 05:12 Follow up: Response: No adverse reaction; IV Intake: 1000ml fu 03:14 Drug: morphine 4 mg Route: IVP; Site: right antecubital; fu 03:44 Follow up: Response: Pain is decreased fu 03:20 Drug: Motrin 600 mg Route: PO; fu 04:20 Follow up: Response: Temperature is decreased fu 04:41 Drug: Dilaudid 0.5 mg Route: IVP; Site: right antecubital; fu 05:10 Follow up: Response: Pain is decreased fu Intake: 05:12 IV: 1000ml; Total: 1000ml. fu Outcome: 01:19 Decision to Hospitalize by Provider. [facility] 05:09 Admitted to ER Hold. Please see [facility] for further documentation. fu 05:09 Condition: improved 05:09 Instructed on the need for admit. 06:35 Admitted to Tele accompanied by nurse, accompanied by tech, room 404, Report called to rebecca nelson RN 06:46 Patient left the ED. fu Signatures: Dispatcher [employer] EDEnoc Bennett MD MD cha Pena, Laura, RN RN lp1 Jo-Ann Coffman RN RN tl1 Philip Yeung RN RN fu Lewis, Charde cl3
[2020-01-09] MEDS ORDERED: ONDANSETRON 4 MG/2 ML VIAL ONE (01:22)
[2020-01-09] MEDS ORDERED: CEFTRIAXONE/SWI 1gm 2 GM/20 ML SYR ONE (01:22)
[2020-01-09] MEDS ORDERED: MAGNESIUM SULFATE 1 gm IVPB 1 GM/100 ML BAG IV ONE (01:22)
[2020-01-09] MEDS ORDERED: AZITHROMYCIN 500 MG INJ IVPB ONE (01:26)
[2020-01-09] MEDS ORDERED: NA CHLORIDE 0.9% 0 ML ONE (01:26)
[2020-01-09 01:27] LABS: ALT/SGPT 94 U/L (12-78); AST/SGOT 57 U/L (15-37); Albumin 3.6 g/dL (3.4-5.0); Alkaline Phosphatase 78 U/L (45-117); BUN Blood Urea Nitrogen 6 mg/dL (7-18); Bicarbonate 27 mmol/L (21-32); Bilirubin Direct 0.1 mg/dL (0-0.2); Bilirubin Total 0.6 mg/dL (0.2-1.0); Glucose Level 197 mg/dL (74-106); Lipase 95 U/L (73-393); Magnesium 1.7 mg/dL (1.8-2.4); NT PRO-BNP 24 pg/mL (<125); Protein, Total 7.6 g/dL (6.4-8.2); Sodium Level 132 mmol/L (136-145); Troponin (Emerg Dept Use Only) < 0.02 ng/mL (0.0-0.045)
[2020-01-09] MEDS ORDERED: NA CHLORIDE 0.9% 250 ML ONE (01:38)
[2020-01-09] MEDS ORDERED: MAGNE/ALUM HYDROXD 30 ML UCUP ONE (02:07)
[2020-01-09] MEDS ORDERED: FAMOTIDINE 20 MG/2 ML VIAL IV ONE (02:07)
[2020-01-09] MEDS ORDERED: LIDOCAINE VISCOUS 2% SOLN 15 ML UDC ONE (02:07)
[2020-01-09] MEDS: NA CHLORIDE 0.9% 1,000 ML IV SCH ×2 (02:25→12:25)
[2020-01-09] MEDS ORDERED: ACETAMINOPHEN 500 MG TAB PO PRN (02:25)
[2020-01-09] MEDS ORDERED: ONDANSETRON 4 MG/2 ML VIAL IV PRN (02:25)
[2020-01-09] MEDS ORDERED: MORPHINE 4 MG/ML SYR IV PRN (02:25)
[2020-01-09] MEDS ORDERED: MORPHINE 4 MG/ML SYR ONE (03:11)
[2020-01-09] MEDS ORDERED: IBUPROFEN 200 MG TAB PO ONE (03:25)
[2020-01-09] MEDS ORDERED: IBUPROFEN 400 MG TAB ONE (03:25)
[2020-01-09] MEDS ORDERED: CEFTRIAXONE 1 GM/NS 50 ML 1 GM/50 ML BAG IV SCH (04:00)
[2020-01-09] MEDS ORDERED: HYDROMORPHONE HCL 0.5 MG/0.5 ML INJ ONE (04:27)
--- NOTE | 2020-01-09 06:30 | EKG ---
Test Date: 2020-01-09 Test Time: 00:13:59 Orthophotography Technician: RT-O MEASUREMENT RESULTS: Intervals: Rate: 139 [place]: 136 QRSD: 76 QT: 270 QTc: 410 [place]: P: 74 [place]: 136 QRS: 253 T: 79 INTERPRETIVE STATEMENTS: Sinus tachycardia Right superior axis deviation Septal infarct, age undetermined Abnormal ECG Compared to ECG 04/09/2016 05:32:08 Right superior axis now present Myocardial infarct finding now present Sinus rhythm no longer present ST (T wave) deviation no longer present Electronically Signed On 01-09-20 06:30:11 CDT by Jelani Baldwin
--- NOTE | 2020-01-09 08:52 | RAD REPORT ---
EXAM DESCRIPTION: RAD - Chest Single View - 01/09/2020 12:48 am CLINICAL HISTORY: Cough;Congestion;Fever;Dyspnea Chest pain. COMPARISON: Chest Pa And Lat (2 Views) dated 11/06/2017; Chest Single View dated 04/09/2016; Chest Sin gle View dated 04/08/2016; CHEST PA AND LAT 2 VIEW dated 08/27/2015 FINDINGS: Portable technique limits examination quality. The lungs are mildly emphysematous but grossly clear. The heart is normal in size. No displaced fract ures. IMPRESSION: Mild COPD.
[2020-01-09] MEDS ORDERED: FAMOTIDINE 20 MG/2 ML VIAL IV SCH (09:00)
[2020-01-09] MEDS ORDERED: AZITHROMYCIN IV 500 MG in NA CHLORIDE 0.9% 250 ML IVPB SCH (09:00)
[2020-01-09] MEDS: METHYLPREDNISOLONE 40 MG INJ IV SCH ×2 (10:23→16:54)
[2020-01-09] MEDS: ASPIRIN EC 81 MG TAB PO SCH (10:24)
[2020-01-09] MEDS: CEFTRIAXONE/SWI 1gm 1 GM/10 ML SYR IV SCH ×2 (10:24→21:17)
[2020-01-09 15:36] VITALS: BMI 30.7
[2020-01-09] MEDS ORDERED: ALPRAZOLAM 0.5 MG TABLET PO PRN (18:10)
[2020-01-09] MEDS: IPRATROPIUM BROM 0.5MG/2.5ML NEB PRN (20:50)
[2020-01-09] MEDS: ALBUTEROL 2.5 MG/3 ML NEB SOL NEB PRN (20:50)
[2020-01-09] MEDS: AZITHROMYCIN IV 500 MG in NA CHLORIDE 0.9% 250 ML IVPB SCH (21:16)
[2020-01-09] MEDS: METOPROLOL TAR 25 MG TAB PO SCH (21:17)
[2020-01-10] MEDS: METHYLPREDNISOLONE 40 MG INJ IV SCH ×3 (00:54→16:46)
[2020-01-10] MEDS: IPRATROPIUM BROM 0.5MG/2.5ML NEB PRN ×3 (01:15→20:05)
--- NOTE | 2020-01-10 02:40 | RAD REPORT ---
EXAM DESCRIPTION: CT chest angiography with intravenous contrast CLINICAL HISTORY: 74-year-old male with chest pain, cough, COPD. TECHNIQUE: Following the administration of intravenous contrast, multiple high-resolution axial images of the ch est were performed followed by sagittal and coronal reconstructed images. No MIP images were obtained . The CT study is performed according to ALARA (as low as reasonably achievable) or ALARA/IMAGE GENTL Y, with automatic adjustment of mA and/or kV according to patient size. Performed on: 01/09/2020 at 3:19 AM COMPARISON: CT chest performed on 11/06/2017 FINDINGS: There is satisfactory visualization and contrast opacification of pulmonary arteries. Ho wever, there is some streak artifact on the images resulting in degradation of image quality and ther e is also some breathing motion artifact. No definite intra-arterial filling defects are identified t o suggest acute or chronic pulmonary embolism. The thoracic aorta is normal in caliber and contour wi thout evidence of aneurysm or dissection. The lungs are well expanded. There is a small focal parenchymal opacity in the right upper lobe which is nonspecific and may represent an area of scarring, atelectasis or inflammatory change. There is a lso patchy parenchymal opacification within the left upper lobe which may represent an area of infect ion or inflammation. The lungs are otherwise grossly clear. There are no pleural effusions. There is no pneumothorax. There is breathing motion artifact on the images resulting in slight degradation of image quality. The heart is normal in size. There is no pericardial effusion. There is no reflux of contrast into th e hepatic veins to suggest right heart strain. The RV/LV ratio is within normal limits. There is no evidence of hilar, mediastinal or axillary lymphadenopathy. No acute osseous abnormality is identified. There are mild degenerative changes of the thoracic spine . The visualized upper abdominal structures reveal a small hiatal hernia. IMPRESSION: 1. No CT evidence to suggest acute or chronic pulmonary embolism, aortic aneurysm or aortic dissectio n. There is some streak artifact on the images as well as breathing motion artifact which does result in degradation of image quality. 2. Small focal parenchymal opacity in the right upper lobe and left upper lobe. These findings are no nspecific and may represent areas of infection, inflammation, scarring and/or atelectasis. These find ings are new when compared to the prior CT chest performed in 2018. 3. Small hiatal hernia. Electronically signed by: Kaylyn Bailey DO 01/09/2020 4:40 AM CDT Due to temporary technical issues with the PACS/Fluency reporting system, reports are being signed by the in house radiologist without review as a courtesy to ensure prompt reporting. The interpreting r adiologist is fully responsible for the content of the report.
[2020-01-10] MEDS: MORPHINE 2 MG/ML SYR IV PRN ×2 (02:47→14:35)
[2020-01-10] MEDS: NA CHLORIDE 0.9% 1,000 ML IV SCH ×3 (04:24→14:29)
[2020-01-10] MEDS: PANTOPRAZOLE 40MG TABLET PO SCH (06:02)
[2020-01-10 06:05] LABS: Hematocrit 38.1 % (39.6-49.0); Lymphocytes % 5.7 % (15.3-44.8); MPV 7.9 fL (7.6-11.3); RBC Red Blood Cell Count 4.02 M/uL (4.33-5.43)
[2020-01-10 06:30] LABS: BUN Blood Urea Nitrogen 12 mg/dL (7-18); Bicarbonate 22 mmol/L (21-32); Glucose Level 296 mg/dL (74-106); NT PRO-BNP 1556 pg/mL (<125); Potassium 4.2 mmol/L (3.5-5.1); Sodium Level 133 mmol/L (136-145)
--- NOTE | 2020-01-10 07:10 | RAD REPORT ---
EXAM DESCRIPTION: RAD - Chest Single View - 01/10/2020 5:26 am CLINICAL HISTORY: Chest Pain COMPARISON: Portable January 08 TECHNIQUE: AP portable chest image was obtained 01/10/2020 5:26 am . FINDINGS: No focal mass or consolidation. Lung markings are not substantially different from compari son. Heart and vasculature are normal. No measurable pleural effusion and no pneumothorax. No acute b james abnormality seen. No acute aortic findings suspected. IMPRESSION: Stable chest from prior day imaging.
[2020-01-10 07:55] LABS: Blood Morphology Comment NOT SEEN (NOT SEEN); Platelet Estimate ADEQ; Urine White Blood Cell Casts OK
[2020-01-10] MEDS ORDERED: IRBESARTAN 300 MG PO SCH (09:00)
[2020-01-10] MEDS ORDERED: HOME MED 1 EA UNK (Paroxetine Hcl [Paroxetine Hcl] 40 MG) PO SCH (09:00)
[2020-01-10] MEDS: IRBESARTAN 150 MG TAB PO SCH (09:20)
[2020-01-10] MEDS: METOPROLOL TAR 25 MG TAB PO SCH ×2 (09:21→21:25)
[2020-01-10] MEDS: ASPIRIN EC 81 MG TAB PO SCH (09:21)
[2020-01-10] MEDS: AMLODIPINE 5 MG TAB PO SCH (09:21)
[2020-01-10] MEDS: PARoxetine HCL 10 MG TAB PO SCH (09:22)
[2020-01-10] MEDS: MONTELUKAST 10 MG TAB PO SCH (09:22)
[2020-01-10] MEDS: CEFTRIAXONE/SWI 1gm 1 GM/10 ML SYR IV SCH ×2 (09:23→21:26)
[2020-01-10] MEDS: ALBUTEROL 2.5 MG/3 ML NEB SOL NEB PRN ×2 (11:09→20:05)
[2020-01-10] MEDS: AZITHROMYCIN IV 500 MG in NA CHLORIDE 0.9% 250 ML IVPB SCH (21:26)
[2020-01-11] MEDS: NA CHLORIDE 0.9% 1,000 ML IV SCH ×2 (00:26→02:11)
[2020-01-11] MEDS: METHYLPREDNISOLONE 40 MG INJ IV SCH ×3 (00:26→16:37)
[2020-01-11] MEDS: IPRATROPIUM BROM 0.5MG/2.5ML NEB PRN ×3 (05:15→13:44)
[2020-01-11] MEDS: ALBUTEROL 2.5 MG/3 ML NEB SOL NEB PRN ×3 (05:15→13:44)
[2020-01-11] MEDS: PANTOPRAZOLE 40MG TABLET PO SCH (06:05)
[2020-01-11] MEDS: MORPHINE 2 MG/ML SYR IV PRN (06:17)
[2020-01-11] MEDS: CEFTRIAXONE/SWI 1gm 1 GM/10 ML SYR IV SCH (09:00)
[2020-01-11] MEDS: ASPIRIN EC 81 MG TAB PO SCH (09:01)
[2020-01-11] MEDS: MONTELUKAST 10 MG TAB PO SCH (09:01)
[2020-01-11] MEDS: IRBESARTAN 150 MG TAB PO SCH (09:01)
[2020-01-11] MEDS: AMLODIPINE 5 MG TAB PO SCH (09:02)
[2020-01-11] MEDS: PARoxetine HCL 10 MG TAB PO SCH (09:03)
[2020-01-11] MEDS: METOPROLOL TAR 25 MG TAB PO SCH ×2 (09:03→20:22)
[2020-01-11] MEDS ORDERED: ENOXAPARIN 40 MG/0.4 ML SQ ONE (11:24)
--- NOTE | 2020-01-11 12:18 | RAD REPORT ---
EXAM DESCRIPTION: RAD - Chest Pa And Lat (2 Views) - 01/11/2020 12:11 pm CLINICAL HISTORY: COPD, pneumonia Chest pain. COMPARISON: Chest Single View dated 01/10/2020; Chest Single View dated 01/09/2020; Chest Pa And Lat ( 2 Views) dated 11/06/2017; Chest Single View dated 04/09/2016; Chest For Pe Angio dated 01/09/2020 FINDINGS: Prominent diffuse COPD is present. Small bilateral pleural effusions are noted. No focal i nfiltrate typical of bacterial pneumonia seen. The heart is normal in size. No displaced fractures. IMPRESSION: Prominent COPD with small bilateral pleural effusions.
[2020-01-11] MEDS: Levofloxacin500mg IV 500 MG/100 ML BAG IV SCH (13:27)
[2020-01-11] MEDS ORDERED: HOME MED 1 EA UNK (Fluticasone/Salmeterol [Advair 250-50 Diskus] 1 PUFF) IH SCH (21:00)
[2020-01-11] MEDS ORDERED: ZOLPIDEM TARTRATE 5 MG TABLET PO SCH (21:00)
[2020-01-11] MEDS ORDERED: ALPRAZOLAM 0.5 MG TABLET PO SCH (21:00)
[2020-01-12] MEDS: METHYLPREDNISOLONE 40 MG INJ IV SCH ×2 (00:27→09:16)
[2020-01-12] MEDS: IPRATROPIUM BROM 0.5MG/2.5ML NEB PRN ×2 (02:45→09:27)
[2020-01-12] MEDS: ALBUTEROL 2.5 MG/3 ML NEB SOL NEB PRN ×2 (02:45→09:27)
[2020-01-12] MEDS: PANTOPRAZOLE 40MG TABLET PO SCH (05:53)
[2020-01-12] MEDS ORDERED: FLUTICASONE 50MCG NASAL SPRAY NAS SCH ×2 (09:00→09:45)
[2020-01-12] MEDS ORDERED: HOME MED 1 EA UNK (Umeclidinium Brm/Vilanterol Tr [Anoro Ellipta 62.5-25 Mcg Inh] 1 PUFF) IH SCH (09:00)
[2020-01-12] MEDS ORDERED: ENOXAPARIN 40 MG/0.4 ML SQ SCH (09:00)
[2020-01-12] MEDS: METOPROLOL TAR 25 MG TAB PO SCH (09:20)
[2020-01-12] MEDS: IRBESARTAN 150 MG TAB PO SCH (09:20)
[2020-01-12] MEDS: PARoxetine HCL 10 MG TAB PO SCH (09:20)
[2020-01-12] MEDS: MONTELUKAST 10 MG TAB PO SCH (09:20)
[2020-01-12] MEDS: ASPIRIN EC 81 MG TAB PO SCH (09:21)
[2020-01-12] MEDS: AMLODIPINE 5 MG TAB PO SCH (09:21)
[2020-01-12] MEDS: Levofloxacin500mg IV 500 MG/100 ML BAG IV SCH (12:00)
[2020-01-12 12:51] VITALS: BP 119/65; TEMP 97.8
[2020-01-12 15:22] VITALS: O2SAT 96
--- NOTE | 2020-01-12 18:07 | PN ---
Date of Progress Note: 01/10/2020 Subjective: The patient was seen this morning for followup. No new complaints or problems reported by him. Still gets short of breath with any activity, which is worse than his baseline. No vomiting, no diarrhea. Objective: Vital Signs: Reviewed. HEENT: Unremarkable. Lungs: Minimum wheezing noted in both lung contreras. Not in any respiratory distress. Heart: Sounds normal. Abdomen: Soft. Bowel sounds normal. No guarding, rigidity, tenderness, or distention. Extremities: No leg edema. Chest x-ray done today shows no change compared to yesterday. No acute infiltrate noted. Laboratory Data: Sodium 133, potassium 4.2, chloride 101, bicarb 22, BUN 12, creatinine 0.80, glucose 296, troponin less than 0.02. White count 16.8, hemoglobin 13, platelets 221. Impression: 1. Acute exacerbation of chronic obstructive pulmonary disease. 2. Rule out pneumonia. 3. Type 2 diabetes mellitus. 4. Hypertension. Plan: We will go ahead and continue current medications. Continue oxygen nebulizer treatment, steroid, and IV antibiotics. The patient's COVID-19 test came back negative, so he no longer requires an isolation. Details and plan of treatment were discussed with him. I will see him tomorrow for followup. He still gets short of breath with even any attempt to get out of bed to even go to the bathroom, which just takes about 4-5 steps, he gets short of breath and this is worse than his baseline. INDRA/MODL Voice ID: [id number] Report ID: [id number] [place]
--- NOTE | 2020-01-12 18:13 | PN ---
Date of Progress Note: 01/11/2020 Subjective: Patient was seen for followup in the morning. No new complaints or problems reported. His shortness of breath with any activity still has not improved and that includes even any attempt t o get out of bed to go to the bathroom, requiring him to walk 4 to 5 steps, causes into shortness of breath and reports that it takes him almost 30 minutes to recover from such activity. He has not bee n able to sleep at all since he has been in hospital. He has prescription for alprazolam that he yamile ost never uses it and he has it for as needed for anxiety attack, but has not used it in a long time and we did talk about using it at nighttime to help him sleep, which he is willing to try. Physical Examination: HEENT: Unremarkable. Lungs: Bilateral good equal air entry with presence of some scattered wheezing. Not in any distress at rest. Cardiac: Heart sounds normal. Abdomen: Soft. Bowel sounds normal. No guarding, rigidity, tenderness, distention. Extremities: No leg edema. Laboratory Data: Chest x-ray from today shows changes of COPD with small bilateral pleural effusion. Impression: 1.Acute exacerbation of chronic obstructive pulmonary disease. 2.Rule out pneumonia. 3.Pleural effusion, bilateral. 4.Hypertension. 5.Type 2 diabetes mellitus. 6.Insomnia. Plan: We will go ahead and try alprazolam at nighttime 0.5 mg to see how he responds to that with hi s insomnia problem. Continue oxygen, nebulizer treatment, steroids. Continue home medication includ ing his inhalers that he takes at home and he was advised that his should bring his home supply and we can use it while in the hospital. We will discontinue azithromycin and ceftriaxone, and start him on Levaquin. We will see him tomorrow f or followup. INDRA/MODL Voice ID: [id number] Report ID: [id number]
--- NOTE | 2020-01-12 21:16 | HP ---
Date of Admission: 01/09/2020 Chief Complaint: Shortness of breath, cough, congestion. History Of Present Illness: This is a 74-year-old very pleasant male patient who went to bed feeling fine and woke up around 9:30-10:00 p.m. with cough, congestion, and shortness of breath. He came into emergency room. After he was evaluated, he was admitted to the hospital. Denies any fever, chills. Denies any expectoration. No exposure to any COVID-19 patients. No vomiting. No diarrhea. Allergies: NO KNOWN ALLERGIES. Medications: List reviewed. Review of Systems: Respiratory: As mentioned above. All other systems reviewed and negative. Past Medical History: Headache, diabetes mellitus type 2, COPD, hypertension, hyperlipidemia, diverticulosis, benign prostatic hypertrophy, osteoarthritis at multiple sites. Past Surgical History: Hernia repair and hip surgery. Family History: Mother had lung cancer. Social History: Prior history of smoking, not at present time. Use of alcohol: Occasional. Physical Examination: Vital Signs: Height 5 feet 11 inches, weight 220 pounds, temperature 100F, pulse 146, respiratory rate 24, blood pressure 158/112, oxygen saturation 96%. General: Awake, alert, oriented, not in distress. HEENT: Head atraumatic, normocephalic. Conjunctivae nonerythematous. Sclerae white. Mouth, no thrush or edema noted. Ears/Nose, no mass, lesion, discharge noted. Neck: Supple. No JVD, lymph nodes, bruit, thyromegaly noted. Lungs: Bilateral equal air entry with some presence of scattered wheezing. No rales. Patient not using any accessory muscles of respiration at rest. Heart: Normal heart sounds, no murmur or gallop. Abdomen: Soft, bowel sounds normal. No guarding, rigidity, tenderness, mass, hepatosplenomegaly, distention, or bruit noted. Extremities: No leg edema. No calf tenderness. Skin: No rash, ulcer, cellulitis. Lymphatics: No lymph node enlargement in neck, supraclavicular, infraclavicular region. Neuro: No focal neurological deficit. Chest: Unremarkable. External Genitalia: Deferred. Rectal: Deferred. Laboratory Data: White count 13.6, hemoglobin 16.2, platelets 274. Sodium 132, potassium 4, chloride 95, bicarb 27, BUN 6, creatinine 1.06, glucose 197. Lactic acid 4.4, magnesium 1.7. Liver function tests, SGOT 57, SGPT 94. Troponin less than 0.02. Procalcitonin less than 0.04. Influenza A and B test negative. Streptococcal screen negative. Chest x-ray shows changes of COPD, no definite infiltrate. CAT scan of the chest per PE protocol, no evidence of any pulmonary embolism. Small focal parenchymal opacity in the right upper lobe and left upper lobe. This could be due to scarring or infiltrate. Impression: 1. Acute exacerbation of chronic obstructive pulmonary disease. 2. Rule out pneumonia. 3. Hypertension. 4. Hyperlipidemia. 5. Osteoarthritis, multiple sites. 6. Type 2 diabetes mellitus. 7. Diverticulosis. 8. Benign prostatic hypertrophy. Plan: Admit patient to hospital for further evaluation and management of this problem. Patient is appropriate for inpatient and is expected to spend 2 midnights in hospital. Home medications will be continued per order. We will go ahead and treat him with oxygen nebulizer treatment, IV steroids, IV antibiotic, which is ceftriaxone and azithromycin. Follow up on culture results. COVID-19 test was done, result pending. Details and plan of treatment discussed with the patient. I will see him tomorrow for followup. INDRA/MODL Voice ID: [id number] MTDD
--- NOTE | 2020-01-12 22:16 | DS ---
Date of Discharge: 01/12/2020 Disposition: Discharged to go home. Physical Examination: HEENT: Unremarkable. Lungs: Clear to auscultation. No rales. No wheezing. Cardiac: Heart sounds normal. Abdomen: Soft, bowel sounds normal. No guarding, rigidity, tenderness, distention. Extremities: No leg edema. Discharge Medications And Instructions: 1.Continue all prior home medications. 2.Take new medication as prescribed. a.Prednisone 10 mg, patient to take 2 tablets by mouth 3 times a day for 4 days, then 2 tablets by m outh daily for 4 days, then 1 tablet by mouth daily for 4 days, then 1/2 tablet by mouth daily for 4 days, then stop, take it with food. b.Levaquin 500 mg p.o. daily for 1 week. c.Follow up at my office either on January 15, 2020 or January 16, 2020. Final Diagnoses: 1.Acute exacerbation of chronic obstructive pulmonary disease. 2.Rule out pneumonia. 3.Bilateral pleural effusion. 4.Hyponatremia. 5.Type 2 diabetes mellitus, uncontrolled. 6.Abnormal liver function tests. 7.Anemia, unspecified. 8.Hypertension. 9.Hyperlipidemia. 10.Diverticulosis. 11.Benign prostatic hypertrophy. 12.Osteoarthritis, multiple sites. 13.Insomnia. Hospital Course: A 74-year-old pleasant male patient admitted to the hospital under my service after he came into emergency room with acute onset of shortness of breath, cough, congestion. Please see dictated H and P for more information. The patient presented to emergency room. Chest x-ray was neg ative for any acute infiltrate. CAT scan of the chest per PE protocol was negative for pulmonary emb olism, but it did show some increased lung markings in both upper lobes could be due to scarring or o ther infiltrate. He was started on IV antibiotics, which were azithromycin and ceftriaxone, IV stero id, oxygen nebulizer treatment. Home medications were continued and all this treatment continued for 2-3 days and is still continued to have problem with shortness of breath with any activity including getting out of bed to go to the bathroom, but he requires only fine to take 4-5 steps, he was still getting short of breath with any such little activity and reported that it took him almost 30 minutes to recover. Yesterday, we changed his antibiotic and started him on Levaquin. His inhalers that he takes at home includes an Advair, we will continue it. Overall, this morning when I saw him, he rep orts that overall he feels better. He slept last night. He was given 1 dose of alprazolam 0.5 mg an d he did sleep well last night and this morning he feels better. He still gets short of breath with any activity including going to the bathroom, but says that he recovers lot quicker now than what he did in last 2-3 days. He was on oxygen during this hospitalization at 2 L/minute this morning. His room air oxygen saturation was 88% and he was placed back on oxygen. With this room air oxygen satur ation of 88%, he does qualify for home oxygen use and I did talk to him about that. He really wants to go home today. Medically, he is stable for discharge and his oxygen arrangements will be made. Keisha cutler have actually initiated paperwork for home oxygen use and we will try to see if his insurance will approve [employer] device and if insurance does not approve then he is willing to buy [id number]. He was advised to use oxygen at night time for sure if he sleeps during day time then he needs to use it during daytime as well and he was told during day time he should monitor his oxygen saturation from time to time and if he notices his oxygen saturation 90 or less then he needs to use oxygen. Medical ly, he is stable for discharge and I will see him at office on outpatient basis in the followup visit . INDRA/MODL Voice ID: [id number] Report ID: [id number]
[2020-01-13] MEDS ORDERED: HOME MED 1 EA UNK NAS SCH (09:00)
== END 2020-01-12 14:38 | disposition home or self-care (01) | DRG 190 ==
LOC: ER 23:58 → ERHOLD 01-09 01:39 → 4TH 01-09 06:13 → 2ND 01-09 20:28
PROVIDERS: ADMIT Internal Medicine; ATTEND Internal Medicine
PROC: 8E0ZXY6 Isolation (ICD-10-PCS; principal; 2020-01-09)
DX: J44.1 Chronic obstructive pulmonary disease with (acute) exacerbation (principal); J18.9 Pneumonia, unspecified organism; E87.1 Hypo-osmolality and hyponatremia; R06.02 Shortness of breath; R50.9 Fever, unspecified; R05 Cough; E11.9 Type 2 diabetes mellitus without complications; I10 Essential (primary) hypertension; E78.5 Hyperlipidemia, unspecified; Z20.828 Contact with and (suspected) exposure to other viral communicable diseases; M19.90 Unspecified osteoarthritis, unspecified site; K57.90 Diverticulosis of intestine, part unspecified, without perforation or abscess without bleeding; N40.0 Benign prostatic hyperplasia without lower urinary tract symptoms; G47.00 Insomnia, unspecified; Z88.7 Allergy status to serum and vaccine; Z79.01 Long term (current) use of anticoagulants; Z79.899 Other long term (current) drug therapy; J44.0 Chronic obstructive pulmonary disease with (acute) lower respiratory infection; R94.5 Abnormal results of liver function studies; D64.9 Anemia, unspecified
CPT/HCPCS: 36415; 71045; 71046; 71275; 80048; 80076; 82947; 83605; 83690; 83735; 83880; 84145; 84484; 85025; 87040; 87070; 87081; 87086; 87088; 87804; 93005; 94640; 94760; 96374; 96375; 99285; J0456; J0696; J1170; J1650; J2270; J2405; J2920; J2930; J3475; J7030; Q9967; U0002

== ENCOUNTER 2022-01-24 04:39 | Observation (INO) | payer OTHER ==
[2022-01-24] MEDS ORDERED: THIAMINE 200 MG/2 ML INJ ONE (05:30)
[2022-01-24] MEDS ORDERED: NA CHLORIDE 0.9% 1,000 ML ONE (05:30)
[2022-01-24 05:46] LABS: Absolute Lymphocytes (CBC) 0.8 K/uL (0.7-4.9); Hematocrit 40.9 % (39.6-49.0); Lymphocytes % 17.6 % (15.3-44.8); MCV 95.9 fL (80-100); MPV 6.8 fL (7.6-11.3); RBC Red Blood Cell Count 4.27 M/uL (4.33-5.43)
[2022-01-24 05:58] LABS: Protime INR 0.98
[2022-01-24 06:10] LABS: Urine Blood Negative (Negative); Urine Glucose Negative (Negative); Urine Protein Negative (Negative); Urine Specific Gravity 1.015 (1.005-1.030)
[2022-01-24 06:15] LABS: Albumin 3.6 g/dL (3.4-5.0); Bilirubin Direct 0.3 mg/dL (0-0.2); Bilirubin Total 0.5 mg/dL (0.2-1.0); Potassium 3.6 mmol/L (3.5-5.1); Protein, Total 6.8 g/dL (6.4-8.2)
[2022-01-24 06:17] LABS: Magnesium 1.4 mg/dL (1.8-2.4); Troponin High Sensitivity 156.8 pg/mL (<58.9)
--- NOTE | 2022-01-24 06:34 | ER ---
Nurse's Notes [facility] Name: Shawn Gant Age: 76 yrs Sex: Male : 1945 Arrival Date: 01/24/2022 Time: 04:39 Bed 17 Private MD: Diagnosis: Weakness;Hypotension, unspecified-resolved;Fall on same level, unspecified;Abnormal levels of other serum enzymes-elevated Troponin;Hypomagnesemia Presentation: 01/24 04:45 Chief complaint: EMS states: pt was walking to kitchen and felt dizzy. went to sit down lg3 on dining table chair and missed half of the chair and slid off. denies hitting head or LOC. complaints of neck pain. Coronavirus screen: Client denies travel out of the [place] in the last 14 days. At this time, the client does not indicate any symptoms associated with coronavirus-19. Ebola Screen: No symptoms or risks identified at this time. Initial Sepsis Screen: Does the patient meet any 2 criteria? No. Patient's initial sepsis screen is negative. Does the patient have a suspected source of infection? No. Patient's initial sepsis screen is negative. Risk Assessment: Do you want to hurt yourself or someone else? Patient reports no desire to harm self or others. Onset of symptoms was January 24, 2022. 04:45 Method Of Arrival: EMS: [facility] lg3 04:45 Acuity: MARIO 3 lg3 04:45 Care prior to arrival: IV initiated. 18 GA, in the right antecubital area. vc1 Triage Assessment: 04:51 General: Appears in no apparent distress. comfortable, Behavior is calm, cooperative. lg3 Pain: Complains of pain in posterior neck. EENT: No deficits noted. No signs and/or symptoms were reported regarding the EENT system. Neuro: No deficits noted. Level of Consciousness is awake, alert, obeys commands, Oriented to person, place, time, situation. Cardiovascular: No deficits noted. Denies chest pain, shortness of breath, Capillary refill < 3 seconds Clubbing of nail beds is absent JVD is absent Patient's skin is warm and dry. Respiratory: No deficits noted. Airway is patent Trachea midline Respiratory effort is even, unlabored, Respiratory pattern is regular, symmetrical, Breath sounds are clear bilaterally. GI: No deficits noted. No signs and/or symptoms were reported involving the gastrointestinal system. Abdomen is round non-distended, Bowel sounds present X 4 quads. Abd is soft and non tender X 4 quads. : No deficits noted. No signs and/or symptoms were reported regarding the genitourinary system. Derm: No deficits noted. No signs and/or symptoms reported regarding the dermatologic system. Skin is intact, is healthy with good turgor, Skin is dry, Skin temperature is warm. Musculoskeletal: No deficits noted. Reports pain in neck. Historical: - Allergies: 04:51 Polio Virus Vaccines; lg3 - PMHx: 04:51 borderline DM; COPD; mild; Hypertension; lg3 - PSHx: 04:51 multiple ortho; lg3 - Immunization history:: Adult Immunizations up to date, moderna X4. - Social history:: Smoking status: Patient/guardian denies using tobacco, the patient reports quitting approximately 10 years ago, Patient uses alcohol, but reports only rare drinking. Patient/guardian denies using street drugs. - Family history:: not pertinent. Screenin:54 Abuse screen: Denies threats or abuse. Denies injuries from another. Nutritional lg3 screening: No deficits noted. Tuberculosis screening: No symptoms or risk factors identified. Fall Risk Fall in past 12 months (25 points). IV access (20 points). Total Cooper Fall Scale indicates High Risk Score (45 or more points). Side Rails Up X 2 Frequent Obs/Assessments Occuring As available patient and family educated on Fall Prevention Program and Strategies. Assessment: 04:54 General: see triage assessment . lg3 06:09 Reassessment: Patient appears in no apparent distress at this time. No changes from lg3 previously documented assessment. Patient and/or family updated on plan of care and expected duration. Pain level reassessed. Patient is alert, oriented x 3, equal unlabored respirations, skin warm/dry/pink. Patient denies pain at this time. Patient states feeling better. 07:35 Reassessment: Patient appears in no apparent distress at this time. Patient and/or ph family updated on plan of care and expected duration. Pain level reassessed. Patient is alert, oriented x 3, equal unlabored respirations, skin warm/dry/pink. Dr Alarcon at bedside to speak w/ pt. 09:00 Reassessment: Patient appears in no apparent distress at this time. Patient and/or ph family updated on plan of care and expected duration. Pain level reassessed. Patient is alert, oriented x 3, equal unlabored respirations, skin warm/dry/pink. Patient denies pain at this time. 10:00 Reassessment: Patient appears in no apparent distress at this time. No changes from ph previously documented assessment. Patient and/or family updated on plan of care and expected duration. Pain level reassessed. Patient is alert, oriented x 3, equal unlabored respirations, skin warm/dry/pink. 11:30 Reassessment: Patient appears in no apparent distress at this time. Patient and/or ph family updated on plan of care and expected duration. Pain level reassessed. Patient is alert, oriented x 3, equal unlabored respirations, skin warm/dry/pink. Patient denies pain at this time. 13:12 Reassessment: attempted to call report-advised by Bhavna that Rommel pager is working and jg9 they did not know they were getting a new patient so the nurse will call me back. Vital Signs: 04:50 BP 115 / 66 LA Sitting (man/reg); Pulse 66 MON; Resp 12 S; Temp 97.7(O); Pulse Ox 100% vc1 on R/A; Weight 83.91 kg; Height 5 ft. 11 in. (180.34 cm); 06:10 BP 132 / 85; Pulse 75; Resp 14; Pulse Ox 100% on R/A; lg3 07:30 BP 128 / 78; Pulse 76; Resp 18; Pulse Ox 99% on R/A; ph 09:00 BP 136 / 68; Pulse 79; Resp 16; Pulse Ox 99% on R/A; ph 10:00 BP 123 / 78; Pulse 80; Resp 18; Pulse Ox 100% on R/A; ph 11:00 BP 132 / 86; Pulse 83; Resp 16; Pulse Ox 98% on R/A; ph 12:08 BP 136 / 75; Pulse 71; Resp 18; Pulse Ox 98% on R/A; ph 04:50 Body Mass Index 25.80 (83.91 kg, 180.34 cm) vc1 ED Course: 04:39 Patient arrived in ED. bb 04:40 Enoc Cadena MD is Attending Physician. marcial 04:45 Jana Arias, RN is Primary Nurse. lg3 04:51 Triage completed. lg3 04:51 Arm band placed on right wrist. lg3 04:54 Patient has correct armband on for positive identification. Placed in gown. Bed in low lg3 position. Call light in reach. Side rails up X2. Client placed on continuous cardiac and pulse oximetry monitoring. NIBP monitoring applied. tree expert on. Door closed. Noise minimized. Warm blanket given. 04:54 Maintain EMS IV. Dressing intact. Good blood return noted. Site clean \\T\\ dry. Gauge \\T\\ lg 3 site: 18G right AC. 05:39 EKG done, by ED staff. wm 05:57 CT Head C Spine In Process Unspecified. EDMS 05:59 XRAY Chest (1 view) In Process Unspecified. EDMS 06:30 Jack Alarcon MD is Hospitalizing Provider. marcial 06:58 COVID-19 SARS RT PCR (Document "Date of Onset" if Symptomatic) Sent. lg3 08:34 Primary Nurse role handed off by Jana Arias, RN jl7 11:17 Tiffanie Clements, RN is Primary Nurse. ph 12:08 No provider procedures requiring assistance completed. Patient admitted, IV remains in ph place. 13:05 Notified primary nurse of elevated troponin 380. jg9 Administered Medications: 05:32 Drug: NS 0.9% 1000 ml Route: IV; Rate: 125 ml/hr; Site: right antecubital; lg3 12:00 Follow up: Response: No adverse reaction; IV Status: Infusion continued upon admission ph 05:32 Drug: Thiamine 100 mg Route: IV; Rate: bolus; Site: right antecubital; lg3 06:58 Drug: Aspirin Chewable Tablet 162 mg Route: PO; lg3 06:58 Follow up: Response: No adverse reaction lg3 06:58 Drug: Pepcid (famotidine) 20 mg Route: IVP; Site: right antecubital; lg3 06:58 Follow up: Response: No adverse reaction lg3 06:58 Drug: Lovenox (enoxaparin) 80 mg Route: Sub-Q; Site: abdomen; lg3 06:58 Follow up: Response: No adverse reaction lg3 06:59 Drug: Magnesium Sulfate 2 grams Route: IVPB; Infused Over: 2 hrs; Site: right lg3 antecubital; 06:59 Follow up: Response: No adverse reaction; IV Status: Infusion continued; IV Intake: lg3 100ml Medication: 12:08 VIS not applicable for this client. ph Intake: 06:59 IV: 100ml; Total: 100ml. lg3 Outcome: 06:33 Decision to Hospitalize by Provider. marcial 12:08 Admitted to ER Hold. Please see [facility] for further documentation. ph 12:08 Condition: stable 12:08 Instructed on the need for admit. 13:36 Patient left the ED. mera 13:38 Admitted to Med/surg accompanied by nurse, via wheelchair, room 229, Report called to mera [place] Signatures: Dispatcher [employer] EDMS Enoc Cadena MD MD cha Ballard, Brenda, RN RN Tiffanie Yang RN RN Gunner Dave, RN RN jl7 Jana Arias RN RN [id number] Carie Garay Jennifer, RN RN jg9 Elenita Urias RN RN vc1
--- NOTE | 2022-01-24 06:34 | EDPHYS ---
Physician Documentation [facility] Name: Shawn Gant Age: 76 yrs Sex: Male : 1945 Arrival Date: 01/24/2022 Time: 04:39 Bed 17 Private MD: ED Physician Enoc Cadena HPI: 01/24 05:22 This 76 yrs old Male presents to ER via EMS with complaints of fall, low bp, marcial hit head. 05:22 The patient presents with decreased range of motion, an injury. The complaints affect marcial the chest. Context: resulted from the patient falling, the patient can fully bear weight. Onset: The symptoms/episode began/occurred just prior to arrival. Modifying factors: The symptoms are alleviated by nothing. the symptoms are aggravated by nothing. Associated signs and symptoms: The patient has no apparent associated signs or symptoms. Details of fall: The patient fell from an upright position, while walking. Associated injuries: The patient sustained neck injury, abrasion, contusion, decreased range of motion, pain. Historical: - Allergies: 04:51 Polio Virus Vaccines; lg3 - PMHx: 04:51 borderline DM; COPD; mild; Hypertension; lg3 - PSHx: 04:51 multiple ortho; lg3 - Immunization history:: Adult Immunizations up to date, moderna X4. - Social history:: Smoking status: Patient/guardian denies using tobacco, the patient reports quitting approximately 10 years ago, Patient uses alcohol, but reports only rare drinking. Patient/guardian denies using street drugs. - Family history:: not pertinent. ROS: 05:22 Constitutional: Negative for fever, chills, and weight loss, Eyes: Negative for injury, marcial pain, redness, and discharge, ENT: Negative for injury, pain, and discharge, Cardiovascular: Negative for chest pain, palpitations, and edema, Respiratory: Negative for shortness of breath, cough, wheezing, and pleuritic chest pain, Abdomen/GI: Negative for abdominal pain, nausea, vomiting, diarrhea, and constipation, Back: Negative for injury and pain, : Negative for injury, bleeding, discharge, and swelling, MS/Extremity: Negative for injury and deformity, Skin: Negative for injury, rash, and discoloration, Neuro: Negative for headache, weakness, numbness, tingling, and seizure. 05:22 Neck: Positive for injury or acute deformity, pain with movement, pain at rest. Exam: 05:22 Constitutional: This is a well developed, well nourished patient who is awake, alert, marcial and in no acute distress. Head/Face: Normocephalic, atraumatic. Eyes: Pupils equal round and reactive to light, extra-ocular motions intact. Lids and lashes normal. Conjunctiva and sclera are non-icteric and not injected. Cornea within normal limits. Periorbital areas with no swelling, redness, or edema. ENT: Nares patent. No nasal discharge, no septal abnormalities noted. Tympanic membranes are normal and external auditory canals are clear. Oropharynx with no redness, swelling, or masses, exudates, or evidence of obstruction, uvula midline. Mucous membranes moist. Chest/axilla: Normal chest wall appearance and motion. Nontender with no deformity. No lesions are appreciated. Cardiovascular: Regular rate and rhythm with a normal S1 and S2. No gallops, murmurs, or rubs. Normal PMI, no JVD. No pulse deficits. Respiratory: Lungs have equal breath sounds bilaterally, clear to auscultation and percussion. No rales, rhonchi or wheezes noted. No increased work of breathing, no retractions or nasal flaring. Abdomen/GI: Soft, non-tender, with normal bowel sounds. No distension or tympany. No guarding or rebound. No evidence of tenderness throughout. Back: No spinal tenderness. No costovertebral tenderness. Full range of motion. Skin: Warm, dry with normal turgor. Normal color with no rashes, no lesions, and no evidence of cellulitis. MS/ Extremity: Pulses equal, no cyanosis. Neurovascular intact. Full, normal range of motion. Neuro: Awake and alert, GCS 15, oriented to person, place, time, and situation. Cranial nerves II-XII grossly intact. Motor strength 5/5 in all extremities. Sensory grossly intact. Cerebellar exam normal. Normal gait. Psych: Awake, alert, with orientation to person, place and time. Behavior, mood, and affect are within normal limits. 05:22 Neck: External neck: is normal, no acute changes, C-spine: appears grossly normal, no acute changes, Thyroid: appears normal. Vital Signs: 04:50 BP 115 / 66 LA Sitting (man/reg); Pulse 66 MON; Resp 12 S; Temp 97.7(O); Pulse Ox 100% vc1 on R/A; Weight 83.91 kg; Height 5 ft. 11 in. (180.34 cm); 06:10 BP 132 / 85; Pulse 75; Resp 14; Pulse Ox 100% on R/A; lg3 07:30 BP 128 / 78; Pulse 76; Resp 18; Pulse Ox 99% on R/A; ph 09:00 BP 136 / 68; Pulse 79; Resp 16; Pulse Ox 99% on R/A; ph 10:00 BP 123 / 78; Pulse 80; Resp 18; Pulse Ox 100% on R/A; ph 11:00 BP 132 / 86; Pulse 83; Resp 16; Pulse Ox 98% on R/A; ph 12:08 BP 136 / 75; Pulse 71; Resp 18; Pulse Ox 98% on R/A; ph 04:50 Body Mass Index 25.80 (83.91 kg, 180.34 cm) vc1 MDM: 04:40 Patient medically screened. marcial 05:25 Differential diagnosis: closed fracture, contusion. Differential diagnosis: closed head marcial injury, contusion, fracture, laceration, multiple trauma, sprain, strain. Data reviewed: vital signs, nurses notes, lab test result(s), EKG, radiologic studies, CT scan, plain films. Data interpreted: library monitor: rate is 66 beats/min. Test interpretation: by ED physician or midlevel provider: ECG, plain radiologic studies. Counseling: I had a detailed discussion with the patient and/or guardian regarding: the historical points, exam findings, and any diagnostic results supporting the discharge/admit diagnosis, lab results, radiology results, the need for outpatient follow up, for definitive care, a nail setter, a family practitioner. 01/24 05:21 Order name: Basic Metabolic Panel; Complete Time: 06:28 marcial 01/24 05:21 Order name: CBC with Diff; Complete Time: 06: marcial 01/24 05:21 Order name: LFT's; Complete Time: 06:28 marcial 01/24 05:21 Order name: Magnesium; Complete Time: 06: marcial 01/24 05:21 Order name: NT PRO-BNP; Complete Time: 06: marcial 01/24 05:21 Order name: PT-INR; Complete Time: 06:28 [facility] 01/24 05:21 Order name: Troponin HS; Complete Time: 06:28 [facility] 01/24 05:21 Order name: XRAY Chest (1 view) [facility] 01/24 05:21 Order name: CT Head C Spine [facility] 01/24 06:10 Order name: Urine Dipstick-Ancillary; Complete Time: 06:28 [facility] 01/24 06:51 Order name: COVID-19 SARS RT PCR (Document "Date of Onset" if Symptomatic) [facility] 01/24 13:05 Order name: Troponin High Sensitivity [facility] 01/24 05:21 Order name: EKG; Complete Time: 05:22 [facility] 01/24 05:21 Order name: Cardiac monitoring; Complete Time: 05:24 [facility] 01/24 05:21 Order name: EKG - Nurse/Tech; Complete Time: 05:29 [facility] 01/24 05:21 Order name: IV Saline Lock; Complete Time: 05:24 [facility] 01/24 05:21 Order name: Labs collected and sent; Complete Time: 05:30 [facility] 01/24 05:21 Order name: O2 Per Protocol; Complete Time: 05:24 [facility] 01/24 05:21 Order name: O2 Sat Monitoring; Complete Time: 05:24 [facility] 01/24 05:21 Order name: Urine Dipstick-Ancillary (obtain specimen); Complete Time: 06:09 [facility] 01/24 06:42 Order name: CONS Physician Consult [facility] Administered Medications: 05:32 Drug: NS 0.9% 1000 ml Route: IV; Rate: 125 ml/hr; Site: right antecubital; lg3 12:00 Follow up: Response: No adverse reaction; IV Status: Infusion continued upon admission ph 05:32 Drug: Thiamine 100 mg Route: IV; Rate: bolus; Site: right antecubital; lg3 06:58 Drug: Aspirin Chewable Tablet 162 mg Route: PO; lg3 06:58 Follow up: Response: No adverse reaction lg3 06:58 Drug: Pepcid (famotidine) 20 mg Route: IVP; Site: right antecubital; lg3 06:58 Follow up: Response: No adverse reaction lg3 06:58 Drug: Lovenox (enoxaparin) 80 mg Route: Sub-Q; Site: abdomen; lg3 06:58 Follow up: Response: No adverse reaction lg3 06:59 Drug: Magnesium Sulfate 2 grams Route: IVPB; Infused Over: 2 hrs; Site: right lg3 antecubital; 06:59 Follow up: Response: No adverse reaction; IV Status: Infusion continued; IV Intake: lg3 100ml Disposition Summary: 01/24/22 06:33 Hospitalization Ordered Hospitalization Status: Observation marcial Provider: Jack Aalrcon cha Condition: Stable marcial Problem: new marcial Symptoms: have improved marcial Bed/Room Type: Standard marcial Location: Telemetry/MedSurg (observation)(01/24/22 12:28) Room Assignment: 229(01/24/22 12:28) ss Diagnosis - Weakness marcial - Hypotension, unspecified - resolved marcial - Fall on same level, unspecified marcial - Abnormal levels of other serum enzymes - elevated Troponin marcial - Hypomagnesemia marcial Discharge Instructions: - Discharge Summary Sheet marcial - Fall Prevention in the Home, Adult marcial - Weakness marcial - Weakness, Pirg-[id number] marcial - Muscle Strain, [id number] marcial Forms: - Medication Reconciliation Form marcial - SBAR form marcial Signatures: Dispatcher [employer] EDEnoc Bennett MD MD marcial Jemma Mcghee RN RN ss Jana Arias RN RN lg3 Tiffanie Clements RN ph Corrections: (The following items were deleted from the chart) 11:39 06:33 Telemetry/MedSurg (observation) marcial ss 11:39 06:33 marcial ss 12:28 11:39 [facility] ER HOLD ss ss 12:28 11:39 ERHOLD- ss ss
[2022-01-24] MEDS ORDERED: MAGNESIUM SULFATE 1 gm IVPB 2 GM/200 ML BAG IV ONE (06:59)
[2022-01-24] MEDS ORDERED: FAMOTIDINE 20 MG/2 ML VIAL IV ONE (06:59)
[2022-01-24] MEDS ORDERED: ASPIRIN 81 MG CHEWABLE TABLET ONE (06:59)
[2022-01-24] MEDS ORDERED: ENOXAPARIN 80 MG/0.8 ML SQ ONE (06:59)
--- NOTE | 2022-01-24 08:09 | RAD REPORT ---
EXAM DESCRIPTION: CT - CTHCSPWOC - 01/24/2022 5:55 am CLINICAL HISTORY: Trauma, head and neck injury. fall COMPARISON: <Comparisons> TECHNIQUE: Axial 5 mm thick images of the head were obtained. Axial 2 mm thick images of the cervical spine were obtained with sagittal and coronal reconstruction images generated and reviewed. All CT scans are performed using dose optimization technique as appropriate and may include automated exposure control or mA/KV adjustment according to patient size. FINDINGS: CT HEAD WITHOUT CONTRAST: No acute hemorrhage, hydrocephalus or extra-axial collection is identified.Mild generalized brain atr ophy is present with mild periventricular and deep white matter chronic microvascular ischemic change s.No areas of brain edema or midline shift. The paranasal sinuses and mastoids are clear.The calvarium is intact. CT CERVICAL SPINE WITHOUT CONTRAST: No fracture or subluxation.Mild spondylosis noted.No prevertebral soft tissues swelling is identified . Carotid atherosclerosis. IMPRESSION: No acute intracranial or cervical spine findings.
[2022-01-24] MEDS: ENOXAPARIN 80 MG/0.8 ML SQ SCH ×2 (09:00→20:26)
[2022-01-24] MEDS ORDERED: MORPHINE 4 MG/ML SYR IV PRN (12:10)
[2022-01-24] MEDS ORDERED: NA CHLORIDE 0.9% 1,000 ML IV SCH (12:10)
[2022-01-24] MEDS: ASPIRIN EC 81 MG TAB PO SCH (12:10)
[2022-01-24] MEDS: FAMOTIDINE 20 MG/2 ML VIAL IV SCH ×2 (12:10→20:26)
[2022-01-24] MEDS ORDERED: ONDANSETRON 4 MG/2 ML VIAL IV PRN (12:10)
[2022-01-24] MEDS: MAGNESIUM OXIDE 400 MG TAB PO SCH ×2 (12:10→20:27)
[2022-01-24] MEDS ORDERED: ACETAMINOPHEN 325 MG TABLET PO PRN (12:14)
--- NOTE | 2022-01-24 13:44 | EKG ---
Test Date: 2022-01-24 Test Time: 05:37:04 Data Warehouse Consultant: MEASUREMENT RESULTS: Intervals: Rate: 71 ID: [id number] QRSD: 82 QT: 416 QTc: 452 Costa: P: 78 ID: [id number] QRS: 262 T: 79 INTERPRETIVE STATEMENTS: Normal sinus rhythm Right superior axis deviation Abnormal ECG Compared to ECG 01/09/2020 04:20:11 Right superior axis now present Sinus tachycardia no longer present Left-axis deviation no longer present Myocardial infarct finding no longer present Electronically Signed On 01-24-22 13:44:02 CDT by Demetrio Aguilar
[2022-01-24 15:35] VITALS: BMI 26.7
--- NOTE | 2022-01-24 16:41 | RAD REPORT ---
EXAM DESCRIPTION: XR Chest, 1 View CLINICAL HISTORY: The patient is 76 years old and is Male; CHEST PAIN TECHNIQUE: Single view of the chest. COMPARISON: No relevant prior studies available. FINDINGS: Lungs: No pulmonary vascular congestion or consolidation. Pleural space: Unremarkable. No pneumothorax. Heart: Unremarkable. No cardiomegaly. Mediastinum: Unremarkable. Bones/joints: Old left rib fractures. Mild scoliosis. Degenerative changes in the AC joints. IMPRESSION: No acute cardiopulmonary process identified. Electronically signed by: Shiloh Pierre MD 01/24/2022 7:23 AM CDT Due to temporary technical issues with the PACS/Fluency reporting system, reports are being signed by the in house radiologists without review as a courtesy to insure prompt reporting. The interpreting radiologist is fully responsible for the content of the report.
[2022-01-24] MEDS ORDERED: FUROSEMIDE 20 MG/ 2ML VIAL IV ONE ×2 (18:43→21:28)
--- NOTE | 2022-01-24 19:15 | CON ---
Date of Consultation: 01/24/2022 Reason For Consultation: Elevated troponin. History Of Present Illness: This is a 76-year-old male with no cardiac history. He was brought into the emergency room after a fall, was told that his blood pressure was low. He was preparing some fo od, trying to get the food out of the oven, felt very dizzy and fell. He did not pass out, but fell on the floor, did not have energy to get up, so he was called and then called 911 and got the ambulan ce, taken to the emergency room. His blood pressure was found to be low. Past Medical History: Diabetes, COPD, hypertension. Medications: Refer to reconciliation sheet for detailed list. Allergies: NO KNOWN DRUG ALLERGIES. Family History: No premature coronary artery disease or cancer. Social History: Does not smoke or drink. Does not use any drugs. Review of Systems: All systems reviewed and they were negative except what mentioned in HPI. Physical Examination: Vital Signs: Temperature is 97.7, pulse 66, breathing at 12, blood pressure is 115/66, saturating 10 0% on room air. General: Pleasant elderly male, in no apparent distress. Head and Neck: Pupils are equal, reactive to light. Intact eye movements. No JVD. No cervical lym phadenopathy. Neck is supple. Thyroid is not enlarged. Lungs: Clear to auscultation bilaterally. No rhonchi, wheezing, or crackles. No accessory muscle u se. Heart: Regular rate and rhythm. No extra sounds. Abdomen: Soft, nontender. Bowel sounds positive. No organomegaly. No masses or hernia. No rigidi ty or rebound. Extremities: No edema, clubbing, or cyanosis. Intact pulses. Skin: No rash. Neurologic: Alert, awake, oriented x3. No acute focal deficits appreciated. Lymph Nodes: No cervical or axillary lymphadenopathy. Investigations: CT head, no acute hemorrhage. EKG without specific acute abnormalities. Troponin i nitially was 156 and then 380. BUN is 9, creatinine 0.88, and hemoglobin is 14.4. Assessment And Recommendations: 1.Elevated troponin. The patient does not have any chest pain. Received 1 dose of aspirin in the e mergency room and 1 dose of Lovenox. Continue Lovenox 1 mg/kg subcu q.12 hours and daily aspirin at 81 mg. Obtain an echocardiogram and Lexiscan nuclear stress test in the morning. 2.Hypotension. Blood pressure is better now. Hold all antihypertensive agents and monitor. 3.Hypomagnesemia. Replace magnesium and potassium and reassess. SR/MODL Voice ID: [id number] Report ID: [id number]
[2022-01-24] MEDS: IPRATROPIUM BROM 0.5MG/2.5ML NEB SCH (20:00)
[2022-01-24] MEDS: ALBUTEROL 2.5 MG/3 ML NEB SOL NEB SCH (20:00)
[2022-01-24] MEDS ORDERED: METHYLPREDNISOLONE 40 MG INJ IV ONE ×2 (21:29→21:32)
[2022-01-25] MEDS: IPRATROPIUM BROM 0.5MG/2.5ML NEB SCH ×2 (01:05→07:54)
[2022-01-25] MEDS: ALBUTEROL 2.5 MG/3 ML NEB SOL NEB SCH ×2 (01:05→07:54)
[2022-01-25 02:45] VITALS: O2SAT 92
[2022-01-25 03:45] LABS: Absolute Lymphocytes (CBC) 0.6 K/uL (0.7-4.9); Hematocrit 39.9 % (39.6-49.0); Lymphocytes % 11.7 % (15.3-44.8); MCV 95.2 fL (80-100); MPV 7.1 fL (7.6-11.3); RBC Red Blood Cell Count 4.19 M/uL (4.33-5.43)
[2022-01-25 04:00] LABS: Potassium 3.6 mmol/L (3.5-5.1)
[2022-01-25 04:23] LABS: Magnesium 1.6 mg/dL (1.8-2.4)
[2022-01-25] MEDS ORDERED: METHYLPREDNISOLONE 40 MG INJ IV SCH (05:00)
[2022-01-25] MEDS ORDERED: ALPRAZOLAM 0.5 MG TABLET PO PRN (05:08)
[2022-01-25] MEDS ORDERED: PANTOPRAZOLE 40MG TABLET PO SCH (06:30)
--- NOTE | 2022-01-25 07:37 | HP ---
Date of Admission: 01/24/2022 Chief Complaint: Dizziness and fall. History Of Present Illness: This is a 76-year-old pleasant male patient who was doing fine in his [facility] usual state of health, until this morning when he got up and hit while he was in the kitchen. Dorcas cutler felt little dizzy, so he decided to sit down in the chair and as he tried to sit down in the chair, flipped over and he fell on the floor from sitting position in the chair. He did not get hurt, but he had hard time getting up, so he crawled over to the living area to go to his couch and tried to ge t up, but he was not able to do, so he called 911 and when EMS arrived, his blood pressure was low, s o he was brought into the emergency room. The patient denies any chest pain. He has severe COPD, ca using him to have shortness of breath with any day-to-day activity. This is his baseline and has rem ained unchanged. Allergies: NO KNOWN ALLERGIES. Medications: List reviewed. 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 Cardiovascular: As mentioned above. Respiratory: As mentioned above. All other systems reviewed and negative. Past Medical History: Significant for type 2 diabetes mellitus, COPD, hypertension, hyperlipidemia, diverticulosis, benign prostatic hypertrophy, osteoarthritis at multiple sites, anxiety, panic attack since 1969. Past Surgical History: Hernia repair and hip surgery on November 20, 2017. Family History: Mother had lung cancer. Social History: Prior history of smoking, not at present time. Use of alcohol, rarely. Physical Examination: Vital Signs: Height 5 feet inches, Weight: pounds, temperature , pulse , respiratory rate , bl ood pressure , oxygen saturation . PHYSICAL EXAMINATION: General: Awake, alert, oriented, not in distress. HEENT: Head atraumatic, normocephalic. Conjunctivae nonerythematous. Sclerae white. Mouth, no thr ush or edema noted. Ears/Nose, no mass, lesion, discharge noted. Neck: Supple. No JVD, lymph nodes, bruit, thyromegaly noted. Lungs: Bilateral good equal air entry. Clear to auscultation. No rhonchi. No rales. Heart: Normal heart sounds, no murmur or gallop. Abdomen: Soft, bowel sounds normal. No guarding, rigidity, tenderness, mass, hepatosplenomegaly, di stention, or bruit noted. Extremities: No leg edema. No calf tenderness. Skin: No rash, ulcer, cellulitis. Lymphatics: No lymph node enlargement in neck, supraclavicular, infraclavicular region. Neuro: No focal neurological deficit. Chest: Unremarkable. External Genitalia: Deferred. Rectal: Deferred. Laboratory Data: White count 4.8, hemoglobin 14.4, platelets 234. Sodium 133, potassium 3.6, chlori de 97, bicarb 31, BUN 9, creatinine 0.88, glucose 124, magnesium 1.4. Troponin 156. Urinalysis unre markable. Chest X-ray: No acute cardiopulmonary changes. CAT scan of the head and cervical spine: No acute int racranial or cervical spine findings. EKG: Normal sinus rhythm, right axis deviation. No acute ST-T changes. Impression: 1.Hypotension. 2.Abnormal cardiac enzymes. 3.Dizziness. 4.Type 2 diabetes mellitus. 5.Hypertension. 6.Hyperlipidemia. 7.Chronic obstructive pulmonary disease. 8.Anxiety. 9.Diverticulosis. 10.Benign prostatic hypertrophy. 11.Hypomagnesemia. Plan: We will go ahead and admit patient to hospital for further evaluation and management of this pr oblem. The patient's home medications will be continued per order. We will continue oxygen nebulize r treatment. Replace magnesium per order. Consult Cardiology. Get serial cardiac enzymes. Get ech o with Doppler today and depending on ict developer's recommendation, further cardiac testing will be done. Details and plan of treatment discussed with the patient. The patient will receive Lovenox pe r order and aspirin. INDRA/MODL Voice ID: [id number]
[2022-01-25] MEDS ORDERED: BUDESONIDE 0.5 MG/2 ML NEB IH SCH (08:00)
[2022-01-25] MEDS ORDERED: REGADENOSON 0.4 MG/5 ML SYR IV ONE (08:11)
[2022-01-25] MEDS ORDERED: MONTELUKAST 10 MG TAB PO SCH (09:00)
[2022-01-25] MEDS ORDERED: METOPROLOL TAR 25 MG TAB PO SCH (09:00)
[2022-01-25] MEDS ORDERED: FLUTICASONE 50MCG NASAL SPRAY NAS SCH (09:00)
[2022-01-25] MEDS ORDERED: LORATADINE 10 MG TAB PO SCH (09:00)
[2022-01-25] MEDS: MAGNESIUM OXIDE 400 MG TAB PO SCH (09:00)
[2022-01-25] MEDS ORDERED: AMLODIPINE 5 MG TAB PO SCH (09:00)
[2022-01-25] MEDS ORDERED: VALSARTAN 160 MG TAB PO SCH (09:00)
[2022-01-25] MEDS ORDERED: HOME MED 1 EA UNK (Lansoprazole [Prevacid] 30 MG Capsule.Dr) PO SCH (09:00)
[2022-01-25] MEDS ORDERED: PARoxetine HCL 10 MG TAB PO SCH (09:00)
[2022-01-25] MEDS: ASPIRIN EC 81 MG TAB PO SCH (10:03)
[2022-01-25] MEDS: ENOXAPARIN 80 MG/0.8 ML SQ SCH (10:04)
[2022-01-25 10:06] VITALS: BP 161/79; TEMP 96.8
[2022-01-25] MEDS: FAMOTIDINE 20 MG/2 ML VIAL IV SCH (10:14)
--- NOTE | 2022-01-25 12:17 | RAD REPORT ---
EXAM DESCRIPTION: NM - Rest Stress Cardiac Imaging - 01/25/2022 12:11 pm CLINICAL HISTORY: Chest pain. COMPARISON: None. TECHNIQUE: The patient was administered 10. mCi of Tc 99m Sestamibi prior to resting SPECT imaging o f the heart. The patient was then administered 30. MCi of Tc 99m Sestamibi following exercise or pha rmacologic stress. Multiplanar SPECT images were reviewed. FINDINGS: Small area diminished radiotracer uptake involves the inferior left ventricular myocardium on rest and stress sequences. There is uniformity of radiotracer uptake involving the remainder of the left ventricular myocardium on rest and stress images. The left ventricular ejection fraction equals 63% IMPRESSION: No evidence of stress-induced ischemia Small area of diminished radiotracer activity involving the inferior left ventricular myocardium prob ably attenuation from the diaphragm. An infarct can also have this appearance
--- NOTE | 2022-01-25 14:28 | TREADPHA ---
DX: CHEST PAIN Date of Study: 01/25/22 Ht: 5' 11 " Wt: 191 lb 12.8 oz Consulting Physician: GERARDO MEDICATIONS: PROVNTIL, NORVASC, ASPIRIN, PULMICORT, LOVENOX, LOPRESSOR, PAXIL, DIOVAN HISTORY: 76 YEAR OLD MALE WITH COMPLAINTS OF CHEST PAIN, SHORTNESS OF BREATH, NEAR SYNCOPE. HISTORY OF COPD, HYPERTENSION, DENIES TOBACCO USE FOR LAST 10 YEARS, DRINKS ALCOHOL OCCASIONALLY, DENIES DRUG USE. PHYSICIAL EXAMINATION: RESTING B.P.: 145/80 RESTING H.R.: 82 RESTING EKG: NORMAL SINUS RHYTHM WITH PREMATURE ATRIAL COMPLEXES PROTOCOL: LEXISCAN EXERCISE TIME: 3;30 B.P. AT PEAK STRESS: 121/69 IMPRESSION: LEXISCAN INJECTED, CARDIOLITE GIVEN PER PROTOCOL, SEE NUCLEAR MEDICINE REPORT. NO CHEST PAIN, SUPRA VENTRICULAR TAHCYCARDIA, VENTRICULAR TACHYCARDIA, PREMATURE VENTRICULAR COMPLEXES. NO EKG CHANGES OF ISCHEMIA WITH LEXISCAN.
--- NOTE | 2022-01-25 17:22 | PN ---
Date of Progress Note: 01/25/2022 Subjective: Seen by bedside, doing well. No chest pain. Review of Systems: No chest pain, shortness of breath, orthopnea, cough. No nausea, vomiting, diarrhea. All other syst ems reviewed are negative. Physical Examination: Vital Signs: Reviewed. Head and Neck: Pupils are equal, reactive to light. Intact eye movements. No JVD. No cervical lym phadenopathy. Neck is supple. Thyroid is not enlarged. Lungs: Clear to auscultation bilaterally. No rhonchi, wheezing, or crackles. No accessory muscle u se. Heart: Regular rate and rhythm. No extra sounds. Abdomen: Soft, nontender. Bowel sounds positive. No organomegaly. No masses or hernia. No rigidi ty or rebound. Extremities: No clubbing or cyanosis. Intact pulses. Skin: No rash. Neurologic: Alert, awake, oriented x3. No acute focal deficits appreciated. Investigations: Creatinine 0.7. Troponin peaked at 380 and down to 364. Nuclear stress test was ne gative for ischemia. Assessment And Recommendations: 1.Elevated troponin, likely due to demand. The patient's blood pressure dropped before the fall and likely caused the borderline troponin leak. His stress test is negative. The patient fr om Cardiology standpoint, the patient can be released and follow up as an outpatient. We can obtain echocardiogram as an outpatient basis as well. 2.Hypotension. Blood pressure is better now and in fact is elevated, so blood pressure medications to be resumed slowly and carefully. SR/MODL Voice ID: [id number] Report ID: [id number]
[2022-01-25] MEDS ORDERED: ATORVASTATIN 40 MG TAB PO SCH (21:00)
--- NOTE | 2022-01-26 05:29 | DS ---
Date of Discharge: 01/25/2022 Disposition: Discharged to go home. Physical Examination: HEENT: Unremarkable. Lungs: Clear to auscultation. No wheezing. No rales. Not in any respiratory distress. Heart: Heart sounds normal. Abdomen: Soft, bowel sounds normal. No guarding, rigidity, tenderness or distention. Extremities: No leg edema. Laboratory Data: Today, white count 5, hemoglobin 13.9, platelets 231. Sodium 134, potassium 3.6, c hloride 99, bicarb 29, BUN 7, creatinine 0.71, glucose 191, magnesium 1.6. Initial troponin 156, sec ond troponin 380, last troponin 364. Discharge Medications And Instructions: 1.Continue all prior home medication. 2.Follow up at my office on 01/31/2022. Call office for appointment. 3.Take aspirin 81 mg 1 tablet by mouth daily with food. 4.Take atorvastatin 40 mg take 1 tablet by mouth daily at bedtime and prescription was sent to his [facility]. Hospital Course: This is a 76-year-old very pleasant male patient, admitted to the hospital after he fell down at home. Please see dictated H and P for more information. After the patient was evaluat ed in the emergency room, he was admitted to the hospital and his workup done in the emergency room i ncluding CAT scan of the head, C-spine, chest x-ray was unremarkable. EKG did not show any acute car diac changes. Cardiology consultation was requested and the patient had an echocardiogram done, whic h was unremarkable, normal ejection fraction and Lexiscan stress test done today was unremarkable as well. [employer] did call and informed me that from cardiac point of view, patient is stable for d ischarge. Medically, he is stable for discharge. Yesterday, while he was getting IV fluid, he start ed to have some wheezing, shortness of breath. His IV fluid was continued. He was given 1 dose of S ashley-Medrol 40 mg IV and Lasix; total 40 mg IV was given and nebulizer treatment was given. Overnight , his condition has improved. This morning, he had no complaints and was discharged to go home in st able condition with above-mentioned medications and instructions. Final Diagnoses: 1.Hypotension. 2.Chronic obstructive pulmonary disease. 3.Type 2 diabetes mellitus. 4.Hypomagnesemia. 5.Anxiety. INDRA/MODL Voice ID: [id number] Report ID: [id number]
== END 2022-01-25 14:42 | disposition home or self-care (01) ==
LOC: ER 04:39 → ERHOLD 06:35 → 2ND 13:14
PROVIDERS: ADMIT Internal Medicine; ATTEND Internal Medicine
DX: I95.9 Hypotension, unspecified (principal); W19.XXXA Unspecified fall, initial encounter; Y92.000 Kitchen of unspecified non-institutional (private) residence as the place of occurrence of the external cause; E83.42 Hypomagnesemia; E11.9 Type 2 diabetes mellitus without complications; J44.9 Chronic obstructive pulmonary disease, unspecified; R77.8 Other specified abnormalities of plasma proteins; E88.09 Other disorders of plasma-protein metabolism, not elsewhere classified; I10 Essential (primary) hypertension; F41.0 Panic disorder [episodic paroxysmal anxiety]; E78.5 Hyperlipidemia, unspecified; K57.90 Diverticulosis of intestine, part unspecified, without perforation or abscess without bleeding; N40.0 Benign prostatic hyperplasia without lower urinary tract symptoms; M15.9 Polyosteoarthritis, unspecified; Z87.891 Personal history of nicotine dependence; Z88.7 Allergy status to serum and vaccine; Z20.822 Contact with and (suspected) exposure to COVID-19; Z80.1 Family history of malignant neoplasm of trachea, bronchus and lung
CPT/HCPCS: 96361; 93005; 93017; 85025 ×2; 80048 ×2; 36415; 83735 ×2; 85610; 80061; 82947; 80076; 81003; 84484 ×3; 83880; 70450; 72125; 71045; 78452; 96375; 96372; 96374; 99285; U0003; J1940 ×2; J3411; J3475; J2785; J7030; J2920 ×2; J3490 ×3; A9500; G0378 ×3

== ENCOUNTER 2022-03-21 06:34 | Emergency (ER) | payer OTHER ==
--- OUTSIDE RECORDS SUMMARY | 2022-03-21 06:37 | XMS REPORT | Continuity of Care Document ---
:1945 Author Organization [facility] t Address [address] [place] [address] Care Team Providers Name Role Phone Yan Church MD Attending Clinician Kevin Ashford Attending Clinician Payers Payer Name Policy Type Policy Number Effective Date Expiration Date S ource Problems Condition Condition Condition Status Onset Resolution Last Treating Co mments Source Name Details Category Date Date Treatment Clinician Date Bilateral Bilateral Disease Active Uni vers knee pain knee pain 3-09 ity of 00:00: [place] 00 [facility] Right hip Right hip Disease Active Uni vers pain pain 3-09 ity of 00:00: [place] 00 [facility] Allergies, Adverse Reactions, Alerts Allergy Allergy Status Severity Reaction(s) Onset Inactive Treating Comm ents Source Name Type Date Date Clinician Polio Propensi Active Rash Univers Virus ty to 6-18 ity of Vaccines adverse 00:00: [place] reaction 00 Medical s to Branch drug Social History Social Habit Start Date Stop Date Quantity Comments Source History of tobacco Cigarette Smoker [facility] use [facility] Alcohol intake [facility] Alcohol Comment [facility] Cigarettes smoked 2019-01-30 2019-01-30 Univers ity of current (pack per 00:00:00 00:00:00 ) - Reported Branch Tobacco Comment 2015-09-23 2015-09-23 Has one month Univer sity of 00:00:00 00:00:00 since no smoking. [facility] Sex Assigned At [birth year] [place] 00:00:00 [facility] Smoking Status Start Date Stop Date Source Current some day smoker 2019-01-30 00:00:00 [facility] Medications Ordered Filled Start Stop Current Ordering Indication Dosage Frequency Signature Comments Components Source Medication Medication Date Date Medication? Clinician (SIG) Name Name mable Yes [id number] 1{tbl} Take 1 Univers en-codeine 7-10 tablet by ity of (TYLENOL-CO 00:00: mouth [place] DEINE #3) 00 every 4 Medical 300-30 mg (four) Branch tablet hours as needed for Pain (scale 4-6) or Pain (scale 7-10). acetaminoph Yes [id number] 1{tbl} Take 1 Univers en-codeine 7-10 tablet by ity of (TYLENOL-CO 00:00: mouth [place] DEINE #3) 00 every 4 Medical 300-30 mg (four) Branch tablet hours as needed for Pain (scale 4-6) or Pain (scale 7-10). acetaminoph Yes [id number] 1{tbl} Take 1 Univers en-codeine 7-10 tablet by ity of (TYLENOL-CO 00:00: mouth [place] DEINE #3) 00 every 4 Medical 300-30 mg (four) Branch tablet hours as needed for Pain (scale 4-6) or Pain (scale 7-10). acetaminoph Yes [id number] 1{tbl} Take 1 Univers en-codeine 7-10 tablet by ity of (TYLENOL-CO 00:00: mouth [place] DEINE #3) 00 every 4 Medical 300-30 mg (four) Branch tablet hours as needed for Pain (scale 4-6) or Pain (scale 7-10). acetaminoph Yes [id number] 1{tbl} Take 1 Univers en-codeine 7-10 tablet by ity of (TYLENOL-CO 00:00: mouth [place] DEINE #3) 00 every 4 Medical 300-30 mg (four) Branch tablet hours as needed for Pain (scale 4-6) or Pain (scale 7-10). DICLOFENAC Yes TAKE 1 Unive rs 75 mg EC 1-30 TABLET BY ity of tablet 00:00: MOUTH [place] 00 TWICE A Medical DAY Branch DICLOFENAC Yes TAKE 1 Unive rs 75 mg EC 1-30 TABLET BY ity of tablet 00:00: MOUTH [place] 00 TWICE A Medical DAY Branch DICLOFENAC Yes TAKE 1 Unive rs 75 mg EC 1-30 TABLET BY ity of tablet 00:00: MOUTH [place] 00 TWICE A Medical DAY Branch DICLOFENAC Yes TAKE 1 Unive rs 75 mg EC 1-30 TABLET BY ity of tablet 00:00: MOUTH [place] 00 TWICE A Medical DAY Branch DICLOFENAC Yes TAKE 1 Unive rs 75 mg EC 1-30 TABLET BY ity of tablet 00:00: MOUTH [place] 00 TWICE A Medical DAY Branch fluticasone Yes 1{puff} Inhale 1 Univers -salmeterol 6-23 Puff 2 ity of (ADVAIR 14:47: (two) [place] DISKUS) 32 times Medical 250-50 daily. Branch mcg/dose inhalation disk montelukast Yes 10mg Take 10 mg Univers (SINGULAIR) 6-23 by mouth ity of 10 mg 14:47: daily. [place] tablet 32 Medical Branch amLODIPine Yes 5mg Take 5 mg Un lauren (NORVASC) 5 6-23 by mouth 2 it y of mg tablet 14:47: (two) [place] 32 times Medical daily. Branch PARoxetine Yes 40mg Take 40 mg U nivers mesylate 6-23 by mouth ity of (PEXEVA) 40 14:47: [place]. [place] mg tablet 32 [place] Branch metoprolol Yes 25mg Take 25 mg U nivers tartrate 6-23 by mouth 2 ity o f (LOPRESSOR) 14:47: (two) [place] 25 mg 32 times Medical tablet daily. Branch irbesartan Yes 300mg Take 300 Un lauren (AVAPRO) 6-23 mg by ity of 300 mg 14:47: mouth [place] tablet 32 daily. Medical Branch fluticasone Yes 2{spray Use 2 Un lauren (FLONASE 6-23 } Sprays in ity of ALLERGY 14:47: each [place] RELIEF) 50 32 nostril Medica l mcg/actuati daily. Branch on nasal spray tiotropium Yes 18ug Inhale 18 Un lauren (SPIRIVA 6-23 mcg daily. ity o f WITH 14:47: [place] HANDIHALER) 32 Medical 18 mcg Branch inhalation fluticasone Yes 1{puff} Inhale 1 Univers -salmeterol 6-23 Puff 2 ity of (ADVAIR 14:47: (two) [place] DISKUS) 32 times Medical 250-50 daily. Branch mcg/dose inhalation disk montelukast Yes 10mg Take 10 mg Univers (SINGULAIR) 6-23 by mouth ity of 10 mg 14:47: daily. [place] tablet 32 Medical Branch amLODIPine Yes 5mg Take 5 mg Un lauren (NORVASC) 5 6-23 by mouth 2 it y of mg tablet 14:47: (two) [place] 32 times Medical daily. Branch PARoxetine Yes 40mg Take 40 mg U nivers mesylate 6-23 by mouth ity of (PEXEVA) 40 14:47: [place]. [place] mg tablet 32 [place] Branch metoprolol Yes 25mg Take 25 mg U nivers tartrate 6-23 by mouth 2 ity o f (LOPRESSOR) 14:47: (two) [place] 25 mg 32 times Medical tablet daily. Branch irbesartan Yes 300mg Take 300 Un lauren (AVAPRO) 6-23 mg by ity of 300 mg 14:47: mouth [place] tablet 32 daily. Medical Branch fluticasone Yes 2{spray Use 2 Un lauren (FLONASE 6-23 } Sprays in ity of ALLERGY 14:47: each [place] RELIEF) 50 32 nostril Medica l mcg/actuati daily. Branch on nasal spray tiotropium Yes 18ug Inhale 18 Un lauren (SPIRIVA 6-23 mcg daily. ity o f WITH 14:47: [place] HANDIHALER) 32 Medical 18 mcg Branch inhalation fluticasone Yes 1{puff} Inhale 1 Univers -salmeterol 6-23 Puff 2 ity of (ADVAIR 14:47: (two) [place] DISKUS) 32 times Medical 250-50 daily. Branch mcg/dose inhalation disk montelukast Yes 10mg Take 10 mg Univers (SINGULAIR) 6-23 by mouth ity of 10 mg 14:47: daily. [place] tablet 32 Medical Branch amLODIPine Yes 5mg Take 5 mg Un lauren (NORVASC) 5 6-23 by mouth 2 it y of mg tablet 14:47: (two) [place] 32 times Medical daily. Branch PARoxetine Yes 40mg Take 40 mg U nivers mesylate 6-23 by mouth ity of (PEXEVA) 40 14:47: daily. [place] mg tablet 32 [place] Branch metoprolol Yes 25mg Take 25 mg U nivers tartrate 6-23 by mouth 2 ity o f (LOPRESSOR) 14:47: (two) [place] 25 mg 32 times Medical tablet daily. Branch irbesartan Yes 300mg Take 300 Un lauren (AVAPRO) 6-23 mg by ity of 300 mg 14:47: mouth [place] tablet 32 daily. Medical Branch fluticasone Yes 2{spray Use 2 Un lauren (FLONASE 6-23 } Sprays in ity of ALLERGY 14:47: each [place] RELIEF) 50 32 nostril Medica l mcg/actuati daily. Branch on nasal spray tiotropium Yes 18ug Inhale 18 Un lauren (SPIRIVA 6-23 mcg daily. ity o f WITH 14:47: [place] HANDIHALER) 32 Medical 18 mcg Branch inhalation fluticasone Yes 1{puff} Inhale 1 Univers -salmeterol 6-23 Puff 2 ity of (ADVAIR 14:47: (two) [place] DISKUS) 32 times Medical 250-50 daily. Branch mcg/dose inhalation disk montelukast Yes 10mg Take 10 mg Univers (SINGULAIR) 6-23 by mouth ity of 10 mg 14:47: daily. [place] tablet 32 Medical Branch amLODIPine Yes 5mg Take 5 mg Un lauren (NORVASC) 5 6-23 by mouth 2 it y of mg tablet 14:47: (two) [place] 32 times Medical daily. Branch PARoxetine Yes 40mg Take 40 mg U nivers mesylate 6-23 by mouth ity of (PEXEVA) 40 14:47: daily. [place] mg tablet 32 [place] Branch metoprolol Yes 25mg Take 25 mg U nivers tartrate 6-23 by mouth 2 ity o f (LOPRESSOR) 14:47: (two) [place] 25 mg 32 times Medical tablet daily. Branch irbesartan Yes 300mg Take 300 Un lauren (AVAPRO) 6-23 mg by ity of 300 mg 14:47: mouth [place] tablet 32 daily. Medical Branch fluticasone Yes 2{spray Use 2 Un lauren (FLONASE 6-23 } Sprays in ity of ALLERGY 14:47: each [place] RELIEF) 50 32 nostril Medica l mcg/actuati daily. Branch on nasal spray tiotropium Yes 18ug Inhale 18 Un lauren (SPIRIVA 6-23 mcg daily. ity o f WITH 14:47: [place] HANDIHALER) 32 Medical 18 mcg Branch inhalation fluticasone Yes 1{puff} Inhale 1 Univers -salmeterol 6-23 Puff 2 ity of (ADVAIR 14:47: (two) [place] DISKUS) 32 times Medical 250-50 daily. Branch mcg/dose inhalation disk montelukast Yes 10mg Take 10 mg Univers (SINGULAIR) 6-23 by mouth ity of 10 mg 14:47: daily. [place] tablet 32 Medical Branch amLODIPine Yes 5mg Take 5 mg Un lauren (NORVASC) 5 6-23 by mouth 2 it y of mg tablet 14:47: (two) [place] 32 times Medical daily. Branch PARoxetine Yes 40mg Take 40 mg U nivers mesylate 6-23 by mouth ity of (PEXEVA) 40 14:47: daily. [place] mg tablet 32 Medical Branch metoprolol Yes 25mg Take 25 mg U nivers tartrate 6-23 by mouth 2 ity o f (LOPRESSOR) 14:47: (two) [place] 25 mg 32 times Medical tablet daily. Branch irbesartan Yes 300mg Take 300 Un lauren (AVAPRO) 6-23 mg by ity of 300 mg 14:47: mouth [place] tablet 32 daily. Medical Branch fluticasone Yes 2{spray Use 2 Un lauren (FLONASE 6-23 } Sprays in ity of ALLERGY 14:47: each [place] RELIEF) 50 32 nostril Medica l mcg/actuati daily. Branch on nasal spray tiotropium Yes 18ug Inhale 18 Un lauren (SPIRIVA 6-23 mcg daily. ity o f WITH 14:47: [place] HANDIHALER) 32 Medical 18 mcg Branch inhalation acetaminoph Yes 1{tbl} Take 1 Tab Univers en-codeine 6-22 by mouth ity o f (TYLENOL-CO 00:00: every 4 [place] DEINE #3) 00 (four) Medical 300-30 mg hours as Branch tablet needed for Pain (scale 4-6). acetaminoph Yes 1{tbl} Take 1 Tab Univers en-codeine 6-22 by mouth ity o f (TYLENOL-CO 00:00: every 4 [place] DEINE #3) 00 (four) Medical 300-30 mg hours as Branch tablet needed for Pain (scale 4-6). acetaminoph Yes 1{tbl} Take 1 Tab Univers en-codeine 6-22 by mouth ity o f (TYLENOL-CO 00:00: every 4 [place] DEINE #3) 00 (four) Medical 300-30 mg hours as Branch tablet needed for Pain (scale 4-6). acetaminoph Yes 1{tbl} Take 1 Tab Univers en-codeine 6-22 by mouth ity o f (TYLENOL-CO 00:00: every 4 [place] DEINE #3) 00 (four) Medical 300-30 mg hours as Branch tablet needed for Pain (scale 4-6). acetaminoph Yes 1{tbl} Take 1 Tab Univers en-codeine 6-22 by mouth ity o f (TYLENOL-CO 00:00: every 4 [place] DEINE #3) 00 (four) Medical 300-30 mg hours as Branch tablet needed for Pain (scale 4-6). Vital Signs Vital Name Observation Time Observation Value Comments Source Systolic blood 2019-03-13 19:06:00 125 mm[Hg] [facility] pressure [facility] Diastolic blood 2019-03-13 19:06:00 79 [facility] Heart rate 2019-03-13 19:06:00 106 /min [facility] Respiratory rate 2019-03-13 19:06:00 18 /min [facility] [place] [facility] [place] Body height 2019-03-13 19:06:00 180.3 cm [facility] [place] [facility] Body weight 2019-03-13 19:06:00 90.719 kg [facility] [place] [facility] BMI 2019-03-13 19:06:00 27.89 kg/m2 [facility] [place] [facility] Systolic blood 2019-03-13 19:06:00 125 mm[Hg] Univer sity of pressure [place] [facility] Diastolic blood 2019-03-13 19:06:00 79 mm[Hg] [facility] Branch Heart rate 2019-03-13 19:06:00 106 /min [facility] [place] [facility] Respiratory rate 2019-03-13 19:06:00 18 /min [facility] [place] [facility] [place] Body height 2019-03-13 19:06:00 180.3 cm [facility] [place] Body weight 2019-03-13 19:06:00 90.719 kg [facility] [place] [facility] BMI 2019-03-13 19:06:00 27.89 kg/m2 [facility] [place] [facility] Procedures Procedure Date / Time Performed Performing Clinician Sourc e XR ANKLE <3 VW LEFT 2019-03-13 19:17:48 Kevin Serna [facility] Encounters Start End Encounter Admission Attending Care Care Encounter Source Date/Time Date/Time Type Type Clinicians Facility Department ID 2019-03-29 2019-03-29 Telephone CARTER Church [id number] 00:00:00 00:00:00 [facility] [employer] [id number] Surgical [id number] Specialti [id number] es [address] [place] 2019-03-29 2019-03-29 Telephone CARTER Church [id number] Univers 00:00:00 00:00:00 [facility] [employer] [id number] it y of Surgical [id number] [place] as Specialti [id number] In dical es [address] [facility] [place] 2019-03-13 2019-03-13 [facility] CARTER Serna [id number] Univers 14:17:47 23:59:00 Encounter [facility] [id number] ity of Surgical [id number] [place] as Specialti [id number] In dical es 809 [facility] 2019-03-13 2019-03-13 [facility] [id number] 14:17:47 23:59:00 Encounter Kevin S [facility] [id number] Surgical [id number] Specialti [id number] es 809 [place] 2019-03-13 2019-03-13 Office [facility] [id number] [facility] 14:01:05 14:50:54 Visit Kevin S Health [id number] it y of Surgical [id number] [place] as Specialti [id number] In dical es 198 [facility] 2019-03-13 2019-03-13 Office [facility] [id number] 14:01:05 14:50:54 Visit Kevin Alirio [facility] [id number] Surgical [id number] Specialti [phone] es [address] [place] Results Test Description Test Time Test Comments Results Result Comments Source SARS-COV2/RT-PCR ([facility]) 2020-01-09 07:59:00 Test Item Value Reference Range Interpretation Comme nts SARS-COV2/RT-PCR (test code = [id number]) Not Detected Not Detected, N egative SARS-COV-2 PERFORMING LAB ([id number] Negative results do not preclude SARS-CoV-2 infection and should not be used as the sole basis for patient management decisions. Negative results must be combined with clinical observations, patient history, and epidemiological information. A false negative result may occur if a specimen is improperly collected, transported or handled.The limit of detection for this assay is 250 copies/mL.This SARS CoV-2 test is a rapid, real-time RT-PCR test intended for the qualitative detection of nucleic acid from SARS-CoV-2 in a nasopharyngeal swab specimen collected from individuals suspected of COVID-19 by their healthcare provider.This test has not been Food and Drug Administration (FDA) cleared or approved and has been authorized by FDA under an Emergency Use Authorization (EUA). This EUA will be effective until the declaration that circumstances exist justifying the authorization of the emergency use of in vitro diagnostic tests for detection and/or diagnosis of COVID-19 is terminated under Section 564(b)(2) of the Act or the EUA is revoked under Section 564(g) of the Act.Fact Sheet for Healthcare Pro viders:https://www.[employer]/Documents/Xpert%20Xpress%20SARS%20CoV-2/Fact%20Sh eets/3023802%10MZAJ-RVA-1%20HEALTHCARE%20PROVIDERS%20FACT%20SHEET.pdfFact Sheet for Healthcare Patients:https://www.[employer]/Documents/Xpert%20Xpress%20SARS%20CoV-2/Fact%20Sheets/3023801%20SARS-COV -2%20PATIENT%20FACT%20SHEET.pdfPerforming Laboratory:[facility], [place] [address]OH ANKLE <3 VW [id number] 19:42:43Good signs of callus formation there has been a slight shift in the mortise but it is set at this point.[facility]
[2022-03-21 07:12] LABS: Hematocrit 41.3 % (39.6-49.0); Lymphocytes % 14.6 % (15.3-44.8); MCV 95.2 fL (80-100); RBC Red Blood Cell Count 4.34 M/uL (4.33-5.43)
[2022-03-21 07:13] LABS: Protime INR 1.01
[2022-03-21 07:31] LABS: Albumin 3.8 g/dL (3.4-5.0); Bilirubin Direct 0.3 mg/dL (0-0.2); Bilirubin Total 1.3 mg/dL (0.2-1.0); Potassium 3.5 mmol/L (3.5-5.1); Troponin High Sensitivity 5.5 pg/mL (<58.9)
[2022-03-21 07:32] LABS: Magnesium 1.3 mg/dL (1.8-2.4)
--- NOTE | 2022-03-21 07:32 | RAD REPORT ---
EXAM DESCRIPTION: Jacinto Single View03/21/2022 7:14 am CLINICAL HISTORY: cough COMPARISON: January 2022 FINDINGS: The lungs are mildly to moderately hyperaerated. Old rib fractures The lungs appear clear of acute infiltrate. The heart is normal size IMPRESSION: No acute abnormalities displayed
[2022-03-21] MEDS ORDERED: METHYLPREDNISOLONE 125 MG INJ ONE (07:35)
[2022-03-21] MEDS ORDERED: AZITHROMYCIN 250 MG TAB ONE (07:35)
[2022-03-21] MEDS ORDERED: IPRATROPIUM BROM 0.5MG/2.5ML ONE (07:35)
[2022-03-21] MEDS ORDERED: LEVALBUTEROL 1.25 MG/3 ML NEB ONE (07:35)
[2022-03-21] MEDS ORDERED: predniSONE 20 MG TAB ONE (07:35)
--- NOTE | 2022-03-21 07:44 | EDPHYS ---
Physician Documentation [facility] Name: Shawn Gant Age: 76 yrs Sex: Male : 1945 Arrival Date: 03/21/2022 Time: 06:36 Bed 17 Private MD: ED Physician Enoc Cadena HPI: 03/21 07:36 This 76 yrs old Male presents to ER via Ambulatory with complaints of marcial Breathing Difficulty, Cough. 07:36 The patient has shortness of breath at rest, with light activity. Onset: The marcial symptoms/episode began/occurred 2 day(s) ago. Duration: The symptoms are continuous, and are steadily getting worse. The patient's shortness of breath has no apparent modifying factors. Associated signs and symptoms: The patient has no apparent associated signs or symptoms. Severity of symptoms: At their worst the symptoms were mild in the emergency department the symptoms are unchanged. The patient has not experienced similar symptoms in the past. Historical: - Allergies: 06:56 Polio Virus Vaccines; ja4 - Immunization history:: Adult Immunizations up to date. - Family history:: not pertinent. - Social history:: Smoking status: Patient denies any tobacco usage or history of. ROS: 07:36 Constitutional: Negative for fever, chills, and weight loss, Eyes: Negative for injury, marcial pain, redness, and discharge, ENT: Negative for injury, pain, and discharge, Neck: Negative for injury, pain, and swelling, Cardiovascular: Negative for chest pain, palpitations, and edema, Abdomen/GI: Negative for abdominal pain, nausea, vomiting, diarrhea, and constipation, Back: Negative for injury and pain, : Negative for injury, bleeding, discharge, and swelling, MS/Extremity: Negative for injury and deformity, Skin: Negative for injury, rash, and discoloration, Neuro: Negative for headache, weakness, numbness, tingling, and seizure, Psych: Negative for depression, anxiety, suicide ideation, homicidal ideation, and hallucinations, Allergy/Immunology: Negative for hives, rash, and allergies, Endocrine: Negative for neck swelling, polydipsia, polyuria, polyphagia, and marked weight changes, Hematologic/Lymphatic: Negative for swollen nodes, abnormal bleeding, and unusual bruising. 07:36 Respiratory: Positive for cough, shortness of breath, at rest. Exam: 07:36 Constitutional: This is a well developed, well nourished patient who is awake, alert, marcial and in no acute distress. Head/Face: Normocephalic, atraumatic. Eyes: Pupils equal round and reactive to light, extra-ocular motions intact. Lids and lashes normal. Conjunctiva and sclera are non-icteric and not injected. Cornea within normal limits. Periorbital areas with no swelling, redness, or edema. ENT: Nares patent. No nasal discharge, no septal abnormalities noted. Tympanic membranes are normal and external auditory canals are clear. Oropharynx with no redness, swelling, or masses, exudates, or evidence of obstruction, uvula midline. Mucous membranes moist. Neck: Trachea midline, no thyromegaly or masses palpated, and no cervical lymphadenopathy. Supple, full range of motion without nuchal rigidity, or vertebral point tenderness. No Meningismus. Chest/axilla: Normal chest wall appearance and motion. Nontender with no deformity. No lesions are appreciated. Cardiovascular: Regular rate and rhythm with a normal S1 and S2. No gallops, murmurs, or rubs. Normal PMI, no JVD. No pulse deficits. Abdomen/GI: Soft, non-tender, with normal bowel sounds. No distension or tympany. No guarding or rebound. No evidence of tenderness throughout. Back: No spinal tenderness. No costovertebral tenderness. Full range of motion. Male : Normal genitalia with no discharge or lesions. Skin: Warm, dry with normal turgor. Normal color with no rashes, no lesions, and no evidence of cellulitis. MS/ Extremity: Pulses equal, no cyanosis. Neurovascular intact. Full, normal range of motion. Neuro: Awake and alert, GCS 15, oriented to person, place, time, and situation. Cranial nerves II-XII grossly intact. Motor strength 5/5 in all extremities. Sensory grossly intact. Cerebellar exam normal. Normal gait. Psych: Awake, alert, with orientation to person, place and time. Behavior, mood, and affect are within normal limits. 07:36 ECG was reviewed by the Attending Physician. 07:36 Respiratory: mild respiratory distress is noted, Respirations: normal, Breath sounds: rales, are not appreciated, bronchial sounds, that are mild, decreased breath sounds, that are mild, rhonchi, are not appreciated, stridor, is not appreciated, + upper airway congestion. Respiratory rate: 18 07:36 Musculoskeletal/extremity: DVT Exam: No signs of deep vein thrombosis. no pain, no swelling, no tenderness, negative Homans' sign noted on exam, no appreciated bluish discoloration, no erythema, no increased warmth. Vital Signs: 06:53 BP 111 / 71; Pulse 102; Resp 18; Temp 98.4; Pulse Ox 96% ; Weight 102.06 kg; Height 5 ja4 ft. 11 in. (180.34 cm); Pain 3/10; 07:15 BP 110 / 58; Pulse 111; Resp 23; Pulse Ox 98% ; bp 09:30 BP 121 / 66; Pulse 100; Resp 24; Pulse Ox 99% ; bp 06:53 Body Mass Index 31.38 (102.06 kg, 180.34 cm) ja4 MDM: 07:01 Patient medically screened. marcial 07:41 Differential diagnosis: Anxiety Reaction asthma, Bronchitis CHF exacerbation, Chronic marcial Obstructive Pulmonary Disease Myocardial Infarction pneumonia, Pneumothorax pulmonary edema, Pulmonary Embolism reactive airway disease, Unstable Angina. Antibiotic administration: The patient is discharged and will get outpatient antibiotics, Zithromax. The patient's Wells Deep Vein Thrombosis Score was calculated as follows: Heart Rate >100 BPM (1.5 Pts) Total Score: 0-2 Pts- Low Risk. The patient's pulmonary embolism risk score was calculated as follows: the patients heart rate is greater than 100 beats per minute (1.5 Pts) Total Score: 0-2 points. This patient was found to be at low risk for a pulmonary embolism by using the Well's assessment criteria. Immunization status: Pneumococcal vaccine: Influenza vaccine: Data reviewed: vital signs, nurses notes, lab test result(s), EKG, radiologic studies, plain films. Data interpreted: community youth secretary: rate is 102 beats/min, rhythm is regular, Pulse oximetry: on room air is 96 %. Test interpretation: by ED physician or midlevel provider: ECG, plain radiologic studies. 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 03/21 06:55 Order name: Basic Metabolic Panel; Complete Time: 07:35 03/21 06:55 Order name: CBC with Diff; Complete Time: 07:35 03/21 06:55 Order name: LFT's; Complete Time: 07:35 03/21 06:55 Order name: Magnesium; Complete Time: 07:35 03/21 06:55 Order name: NT PRO-BNP; Complete Time: 07:35 03/21 06:55 Order name: PT-INR; Complete Time: 07:35 03/21 06:55 Order name: Troponin HS; Complete Time: 07:35 03/21 06:55 Order name: XRAY Chest (1 view); Complete Time: 07:35 03/21 06:57 Order name: Flu [facility] 03/21 06:57 Order name: SARS-COV-2 RT PCR (Document "Date of Onset" if Symptomatic) [facility] 03/21 06:55 Order name: EKG; Complete Time: 06:56 03/21 06:55 Order name: Cardiac monitoring; Complete Time: 06:57 03/21 06:55 Order name: EKG - Nurse/Tech; Complete Time: 06:57 03/21 06:55 Order name: IV Saline Lock; Complete Time: 06:57 03/21 06:55 Order name: Labs collected and sent; Complete Time: 07:04 03/21 06:55 Order name: O2 Per Protocol; Complete Time: 06:57 03/21 06:55 Order name: O2 Sat Monitoring; Complete Time: 06:57 6 EC:36 Rate is 111 beats/min. Rhythm is regular. QRS [place] is Normal. [place] interval is normal. [facility] QRS interval is normal. QT interval is normal. No Q waves. T waves are Normal. No ST changes noted. Clinical impression: Sinus tachycardia and No evidence of ischemia. Interpreted by me. Reviewed by me. Administered Medications: 06:58 CANCELLED (Duplicate Order): Xopenex (levalbuterol) 1.25 mg Inhalation once marcial 07:33 Drug: SOLU-Medrol (methylPrednisoLONE) 125 mg Route: IVP; Site: right forearm; bp 09:44 Follow up: Response: No adverse reaction bp 07:33 Drug: predniSONE 40 mg Route: PO; bp 09:44 Follow up: Response: No adverse reaction bp 07:33 Drug: Xopenex (levalbuterol) 3.75 mg Route: Inhalation; bp 07:33 Drug: Zithromax (azithromycin) 500 mg Route: PO; bp 09:44 Follow up: Response: No adverse reaction bp 07:34 Drug: AtroVENT (ipratropium) Aerosol 0.5 mg Route: Inhalation; bp 07:45 Drug: GI Cocktail without - (Maalox Suspension 30 ml, Lidocaine Liquid 2 % 15 bp ml) Route: PO; 09:45 Follow up: Response: No adverse reaction bp 07:45 Drug: Pepcid (famotidine) 40 mg Route: PO; bp 09:45 Follow up: Response: No adverse reaction bp 07:45 Drug: Magnesium Sulfate 2 grams Route: IVPB; Infused Over: 2 hrs; Site: right forearm; bp 09:44 Follow up: IV Status: Completed infusion; IV Intake: 50ml bp Disposition Summary: 03/21/22 07:43 Discharge Ordered Location: Home marcial Problem: new marcial Symptoms: have improved marcial Condition: Fair marcial Diagnosis - COPD/ Chronic obstructive pulmonary disease with (acute) exacerbation marcial - COPD/ Chronic obstructive pulmonary disease, unspecified marcial - Hypomagnesemia marcial - Gastro-esophageal reflux disease with esophagitis marcial Followup: marcial - With: Private Physician - When: 2 - 3 days - Reason: Recheck today's complaints, Continuance of care, Re-evaluation by your physician Followup: marcial - With: Davis Quinonez MD - When: 2 - 3 days - Reason: Recheck today's complaints, Continuance of care, Re-evaluation by your physician Discharge Instructions: - Discharge Summary Sheet marcial - Chronic Bronchitis, Adult marcial - Chronic Obstructive Pulmonary Disease marcial - Food Choices for Gastroesophageal Reflux Disease, Adult marcial - Gastroesophageal Reflux Disease, Adult marcial - Hypomagnesemia marcial - Chronic Obstructive Pulmonary Disease Exacerbation marcial - Chronic Obstructive Pulmonary Disease, [id number] marcial - Gastroesophageal Reflux Disease, Adult, Kxiz-[id number] marcial - Cough, Adult, Izbi-[id number] marcial - Cough, Adult marcial - Chronic Obstructive Pulmonary Disease Exacerbation, [id number] marcial Forms: - Medication Reconciliation Form marcial - Thank You Letter marcial - Antibiotic Education marcial - Prescription Opioid Use marcial Prescriptions: - Pepcid 20 mg Oral Tablet - take 1 tablet by ORAL route every 12 hours for 30 days; 60 tablet; Refills: 0, [facility] Product Selection Permitted - magnesium oxide - take 400 milligram by ORAL route every 12 hours; 30 tablet; Refills: 0, Product marcial Selection Permitted - Albuterol Sulfate 2.5 mg /3 mL (0.083 %) Inhalation Solution for Nebulization - inhale 1 unit by NEBULIZATION route every 8 hours As needed; 1 box; Refills: 0, [facility] Product Selection Permitted - Prednisone 20 mg Oral Tablet - take 2 tablets by ORAL route once daily for 5 days; 10 tablet; Refills: 0, [facility] Product Selection Permitted - Guaifenesin AC 10-100 mg/5 mL Oral Liquid - take 10 milliliters by ORAL route every 6 hours As needed; 180 milliliter; marcial Refills: 0, Product Selection Permitted - Zithromax 500 mg Oral Tablet - take 1 tablet by ORAL route once daily for 5 days; 5 tablet; Refills: 0, [facility] Product Selection Permitted Signatures: Dispatcher [employer] EDMS Enoc Cadena MD MD cha Peltier, Brian, RN RN bp Slawson, Ashby, RN RN as6 Rikki Beltre RN RN ja4 Corrections: (The following items were deleted from the chart) 06:58 06:55 Xopenex (levalbuterol) 1.25 mg Inhalation once ordered. marcin ceja
--- NOTE | 2022-03-21 07:44 | ER ---
Nurse's Notes [facility] Name: Shawn Gant Age: 76 yrs Sex: Male : 1945 Arrival Date: 03/21/2022 Time: 06:36 Bed 17 Private MD: Diagnosis: COPD/ Chronic obstructive pulmonary disease with (acute) exacerbation;COPD/ Chronic obstructive pulmonary disease, unspecified;Hypomagnesemia;Gastro-esophageal reflux disease with esophagitis Presentation: 03/21 06:53 Chief complaint: Patient states: hard to breath. copd acting up. Coronavirus screen: ja4 cough unrelated to allergies, difficulty breathing. Ebola Screen: No symptoms or risks identified at this time. Initial Sepsis Screen: Does the patient meet any 2 criteria? No. Patient's initial sepsis screen is negative. Does the patient have a suspected source of infection? No. Patient's initial sepsis screen is negative. Risk Assessment: Do you want to hurt yourself or someone else? Patient reports no desire to harm self or others. Onset of symptoms was March 21, 2022 at 04:00. 06:53 Method Of Arrival: Ambulatory [facility] 06:53 Acuity: MARIO 3 ja4 Triage Assessment: 06:56 General: Appears distressed, uncomfortable, slender, Behavior is cooperative, ja4 appropriate for age, anxious. Pain: Complains of pain in chest Pain currently is 3 out of 10 on a pain scale. Quality of pain is described as burning, Pain began 1 hour ago. Respiratory: Reports shortness of breath at rest on exertion cough that is labored breathing pain with cough Onset: The symptoms/episode began/occurred this morning, the patient has moderate shortness of breath. Historical: - Allergies: 06:56 Polio Virus Vaccines; ja4 - Immunization history:: Adult Immunizations up to date. - Family history:: not pertinent. - Social history:: Smoking status: Patient denies any tobacco usage or history of. Screenin:57 Abuse screen: Denies threats or abuse. Nutritional screening: No deficits noted. ja4 Tuberculosis screening: No symptoms or risk factors identified. Fall Risk IV access (20 points). Assessment: 06:57 Reassessment: see nursing triage. ja4 07:45 Reassessment: DC ON HOLD FOR MEDS. bp 09:41 Reassessment: PT D/C HOME, DX WITH COPD EXACERBATION. Cardiovascular: Rhythm is sinus bp rhythm. Respiratory: Airway is patent Respiratory effort is even, unlabored, Breath sounds are diminished bilaterally. Vital Signs: 06:53 BP 111 / 71; Pulse 102; Resp 18; Temp 98.4; Pulse Ox 96% ; Weight 102.06 kg; Height 5 ja4 ft. 11 in. (180.34 cm); Pain 3/10; 07:15 BP 110 / 58; Pulse 111; Resp 23; Pulse Ox 98% ; bp 09:30 BP 121 / 66; Pulse 100; Resp 24; Pulse Ox 99% ; bp 06:53 Body Mass Index 31.38 (102.06 kg, 180.34 cm) ja4 ED Course: 06:36 Patient arrived in ED. bp1 06:55 Enoc Cadena MD is Attending Physician. marcial 06:55 Triage completed. ja4 06:56 Arm band placed on. ja4 06:57 Patient has correct armband on for positive identification. Side rails up X 1. Side ja4 rails up X2. 06:57 No provider procedures requiring assistance completed. Inserted saline lock: 20 gauge ja4 in right wrist, using aseptic technique. Blood collected. 07:02 Wyatt Rose, RN is Primary Nurse. bp 07:15 XRAY Chest (1 view) In Process Unspecified. EDMS 07:46 Davis Quinonez MD is Referral Physician. marcial 09:41 IV discontinued, intact, bleeding controlled, No redness/swelling at site. Pressure bp dressing applied. Administered Medications: 06:58 CANCELLED (Duplicate Order): Xopenex (levalbuterol) 1.25 mg Inhalation once marcial 07:33 Drug: SOLU-Medrol (methylPrednisoLONE) 125 mg Route: IVP; Site: right forearm; bp 09:44 Follow up: Response: No adverse reaction bp 07:33 Drug: predniSONE 40 mg Route: PO; bp 09:44 Follow up: Response: No adverse reaction bp 07:33 Drug: Xopenex (levalbuterol) 3.75 mg Route: Inhalation; bp 07:33 Drug: Zithromax (azithromycin) 500 mg Route: PO; bp 09:44 Follow up: Response: No adverse reaction bp 07:34 Drug: AtroVENT (ipratropium) Aerosol 0.5 mg Route: Inhalation; bp 07:45 Drug: GI Cocktail without - (Maalox Suspension 30 ml, Lidocaine Liquid 2 % 15 bp ml) Route: PO; 09:45 Follow up: Response: No adverse reaction bp 07:45 Drug: Pepcid (famotidine) 40 mg Route: PO; bp 09:45 Follow up: Response: No adverse reaction bp 07:45 Drug: Magnesium Sulfate 2 grams Route: IVPB; Infused Over: 2 hrs; Site: right forearm; bp 09:44 Follow up: IV Status: Completed infusion; IV Intake: 50ml bp Medication: 06:57 VIS not applicable for this client. ja4 Intake: 09:44 IV: 50ml; Total: 50ml. bp Outcome: 07:43 Discharge ordered by . marcial 09:41 Discharged to home ambulatory. bp 09:41 Condition: stable 09:41 Discharge instructions given to patient, Instructed on discharge instructions, follow up and referral plans. medication usage, Demonstrated understanding of instructions, follow-up care, medications, Prescriptions given X 5 09:45 Patient left the ED. bp Signatures: Dispatcher [employer] EDMS Enoc Cadena MD MD cha Peltier, Brian, RN RN bp Yaritza Bowles Jeremy, RN RN ja4
[2022-03-21] MEDS ORDERED: MAGNES/ALUMIN/SIMET 30ML UCUP ONE (08:03)
[2022-03-21] MEDS ORDERED: Magnesium Sulfate 2gm IVPB 2 G/50 ML BAG IV ONE (08:03)
[2022-03-21] MEDS ORDERED: LIDOCAINE VISCOUS 2% SOLN 15 ML UDC ONE (08:03)
[2022-03-21] MEDS ORDERED: FAMOTIDINE 20 MG TAB ONE (08:03)
[2022-03-21] MEDS ORDERED: ASPIRIN 81 MG CHEWABLE TABLET ONE (08:33)
[2022-03-21 10:16] VITALS: TEMP 98.4
[2022-03-21 10:21] VITALS: BP 121/66; O2SAT 99
--- NOTE | 2022-03-22 14:34 | EKG ---
Test Date: 2022-03-21 Test Time: 06:48:19 [employer] Executive: DARION MEASUREMENT RESULTS: Intervals: Rate: 111 NC: 200 QRSD: 76 QT: 342 QTc: 465 [place]: P: 91 NC: 200 QRS: -86 T: 87 INTERPRETIVE STATEMENTS: Sinus tachycardia Left axis deviation Pulmonary disease pattern Septal infarct, age undetermined Abnormal ECG Compared to ECG 01/24/2022 05:37:04 Left-axis deviation now present Myocardial infarct finding now present Sinus rhythm no longer present Right superior axis no longer present Electronically Signed On 03-22-22 14:30:49 CDT by Demetrio Aguilar
== END 2022-03-21 09:45 | disposition home or self-care (01) ==
LOC: ER 06:34
DX: U07.1 COVID-19 (principal); J44.1 Chronic obstructive pulmonary disease with (acute) exacerbation; E83.42 Hypomagnesemia; K21.00 Gastro-esophageal reflux disease with esophagitis, without bleeding; Z88.7 Allergy status to serum and vaccine
CPT/HCPCS: 96365; 93005; 85025; 80048; 36415; 83735; 85610; 80076; 84484; 83880; 87804 ×2; 71045; 96375; 99285; 96366; U0003; J7614; J7512; J3475; J2930

== ENCOUNTER 2022-03-22 16:01 | Emergency (ER) | payer OTHER ==
--- OUTSIDE RECORDS SUMMARY | 2022-03-22 16:05 | XMS REPORT | Continuity of Care Document ---
:[address] [facility] t Address [address] [place] [address] Care Team Providers Name Role Phone Yan [...] pain 3-09 ity of 00:00: [place] 00 [facility] Right hip Right hip Disease Active Uni vers pain pain 3-09 ity of 00:00: [place] 00 [facility] Allergies, Adverse Reactions, Alerts Allergy Allergy Status Severity Reaction(s) Onset Inactive Treating Comm ents Source Name Type Date Date Clinician Polio Propensi Active Rash Univers Virus ty to 6-18 ity of Vaccines adverse 00:00: [place] reaction 00 Medical s to Branch drug Social History Social Habit Start Date Stop Date Quantity Comments Source History of tobacco Cigarette Smoker [facility] use [facility] Alcohol intake [facility] Alcohol Comment Occasional [facility] Cigarettes smoked 2019-01-30 2019-01-30 Univers ity of current (pack per 00:00:00 00:00:00 ) - Reported Branch Tobacco Comment 2015-09-23 2015-09-23 Has one month Univer sity of 00:00:00 00:00:00 since no smoking. [facility] Sex Assigned At [birth year] [place] [facility]:00 [facility] Smoking Status Start Date Stop Date Source Current some day smoker 2019-01-30 00:00:00 [facility] Branch Medications Ordered Filled Start Stop Current Ordering Indication Dosage Frequency Signature Comments Components Source Medication Medication Date Date Medication? Clinician (SIG) Name Name mable Yes [id number] 1{tbl} Take 1 Univers en-codeine 7-10 tablet by ity of (TYLENOL-CO 00:00: mouth [place] DEINE #3) 00 every 4 Medical 300-30 mg (four) Branch tablet hours as needed for Pain (scale 4-6) or Pain (scale 7-10). acetaminoph Yes [id number] 1{tbl} Take 1 Univers en-codeine 7-10 tablet by ity of (TYLENOL-CO 00:00: mouth [place] DEINE #3) 00 every 4 Medical 300-30 mg (four) Branch tablet hours as needed for Pain (scale 4-6) or Pain (scale 7-10). acetaminoph Yes [id number] 1{tbl} Take 1 Univers en-codeine 7-10 tablet by ity of (TYLENOL-CO 00:00: mouth [place] DEINE #3) 00 every 4 Medical 300-30 mg (four) Branch tablet hours as needed for Pain (scale 4-6) or Pain (scale 7-10). acetaminoph Yes [id number] 1{tbl} Take 1 Univers en-codeine 7-10 tablet by ity of (TYLENOL-CO 00:00: mouth [place] DEINE #3) 00 every 4 Medical 300-30 mg (four) Branch tablet hours as needed for Pain (scale 4-6) or Pain (scale 7-10). acetaminoph Yes [id number] 1{tbl} Take 1 Univers en-codeine 7-10 tablet [...] [place] 00 TWICE A Medical DAY Branch tiotropium Yes 18ug Inhale 18 Un lauren [...] l mcg/actuati daily. Branch on nasal spray acetaminoph Yes 1{tbl} Take 1 Tab Univers [...] Source Systolic blood 2019-03-13 19:06:00 125 mm[Hg] Madier sity pressure [facility] Diastolic blood 2019-03-13 19:06:00 79 mm[Hg] [facility] Heart rate 2019-03-13 19:06:00 106 /min [facility] Respiratory rate 2019-03-13 19:06:00 18 /min [facility] Body height 2019-03-13 19:06:00 180.3 cm [facility] Body weight 2019-03-13 19:06:00 90.719 kg [facility] BMI 2019-03-13 19:06:00 27.89 kg/m2 [facility] Systolic blood 2019-03-13 19:06:00 125 mm[Hg] [facility]iver [facility] Diastolic blood 2019-03-13 19:06:00 79 mm[Hg] [facility]ive [facility] Heart rate 2019-03-13 19:06:00 106 /min [facility] Respiratory rate 2019-03-13 19:06:00 18 /min [facility] Body height 2019-03-13 19:06:00 180.3 cm [facility] Body weight 2019-03-13 19:06:00 90.719 kg [facility] BMI 2019-03-13 19:06:00 27.89 kg/m2 [facility] Procedures Procedure Date / Time Performed Performing Clinician Sourc e XR ANKLE <3 VW LEFT 2019-03-13 19:17:48 Kevin Serna [facility] Encounters Start End Encounter Admission Attending Care Care Encounter Source Date/Time Date/Time Type Type Clinicians Facility Department ID 2019-03-29 2019-03-29 Telephone [facility] [id number] Univers 00:00:00 00:00:00 Yan [employer] [id number] it y of Surgical [id number] Dereck as Specialti [id number] Mt dical es [address] [place] 2019-03-29 2019-03-29 Telephone [facility]TER [facility] [id number] 00:00:00 00:00:00 Yan [employer] [id number] Surgical [id number] Specialti [id number] [address] [place] 2019-03-13 2019-03-13 [facility] CARTER Serna [id number] Univers 14:17:47 23:59:00 Encounter [facility] [id number] ity of Surgical [id number] Dereck as Specialti [id number] Mt dical es 8[address] [facility] 2019-03-13 2019-03-13 [facility] [id number] 14:17:47 23:59:00 Encounter Kevin S Health [id number] Surgical [id number] Specialti [id number] es [address] [place] 2019-03-13 2019-03-13 Office [facility] [id number] [facility] 14:01:05 14:50:54 Visit Kevin S Health [id number] it y of Surgical [id number] Dereck as Specialti [id number] Mt dical es [address] [facility] 2019-03-13 2019-03-13 Office [facility] [id number] 14:01:05 14:50:54 Visit Kevin [facility] [id number] Surgical [id number] Specialti [id number] es [address] [place] Results Test Description Test Time Test Comments Results Result Comments Source SARS-COV2/RT-PCR ([facility]) 2020-01-09 07:59:00 Test Item Value Reference Range Interpretation Comme nts SARS-COV2/RT-PCR (test code = 5654481) Not Detected Not Detected, N egative SARS-COV-2 PERFORMING LAB (test code = [id number] Negative results do not preclude SARS-CoV-2 infection [...] of the Act.Fact Sheet for Healthcare Pro viders:https://www.GageIn/Documents/Xpert%20Xpress%20SARS%20CoV-2/Fact%20Sh eets/3023802%44FBDS-MRA-4%20HEALTHCARE%20PROVIDERS%20FACT%20SHEET.pdfFact Sheet for Healthcare Patients:https://www.Storytree/Documents/Xpert%20Xpress%20SARS%20CoV-2/Fact%20Sheets/3023801%20SARS-COV -2%20PATIENT%20FACT%20SHEET.pdfPerforming Laboratory:[facility], [place] [address]AP ANKLE <3 VW [id number] 19:42:43Good signs of callus formation there has been a slight shift in the mortise but it is set at this point.[facility]
--- NOTE | 2022-03-22 16:55 | ER ---
Nurse's Notes [facility] Name: Shawn Gant Age: 76 yrs Sex: Male : 1945 Arrival Date: 03/22/2022 Time: 16:03 Bed 6 Private MD: Diagnosis: Unspecified injury of head, initial encounter Presentation: 03/22 16:18 Chief complaint: Chief complaint: EMS states: pt fell hit his head after taking some iw codeine and drinking a few beers , no LOC. 16:18 Acuity: MARIO 4 iw 16:18 Method Of Arrival: EMS: [facility] iw 16:30 Coronavirus screen: At this time, the client does not indicate any symptoms associated bp with coronavirus-19. Ebola Screen: No symptoms or risks identified at this time. Initial Sepsis Screen: Does the patient meet any 2 criteria? No. Patient's initial sepsis screen is negative. Does the patient have a suspected source of infection? No. Patient's initial sepsis screen is negative. Risk Assessment: Do you want to hurt yourself or someone else? Patient reports no desire to harm self or others. Onset of symptoms was March 22, 2022 at 15:00. Triage Assessment: 16:30 General: Appears in no apparent distress. comfortable, Behavior is calm, cooperative, bp appropriate for age. Pain: Denies pain. EENT: No deficits noted. Neuro: Level of Consciousness is awake, alert, obeys commands, Oriented to Appropriate for age. Cardiovascular: No deficits noted. Respiratory: No deficits noted. GI: No signs and/or symptoms were reported involving the gastrointestinal system. : No signs and/or symptoms were reported regarding the genitourinary system. Derm: No deficits noted. Musculoskeletal: No deficits noted. Injury Description: Bruise sustained to forehead. Historical: - Allergies: 16:35 Polio Virus Vaccines; iw - PMHx: 16:35 borderline DM; COPD; mild; Hypertension; iw - PSHx: 16:35 multiple ortho; iw - Immunization history:: Adult Immunizations up to date. - Social history:: Smoking status: unknown. - Family history:: not pertinent. - Hospitalizations: : No recent hospitalization is reported. Screenin:30 Abuse screen: Denies threats or abuse. Denies injuries from another. Nutritional bp screening: No deficits noted. Tuberculosis screening: No symptoms or risk factors identified. Fall Risk None identified. Assessment: 16:30 General: SEE TRIAGE NOTE. bp 17:01 Reassessment: Patient appears in no apparent distress at this time. Patient and/or iw family updated on plan of care and expected duration. Pain level reassessed. Patient is alert, oriented x 3, equal unlabored respirations, skin warm/dry/pink. 17:14 Reassessment: PT D/C HOME VIA WC WITH FAMILY. bp Vital Signs: 16:30 BP 145 / 75; Pulse 67; Resp 16; Temp 98; Pulse Ox 99% ; bp 17:01 BP 126 / 75; Pulse 74; Resp 16; Pulse Ox 98% ; iw ED Course: 16:03 Patient arrived in ED. rn 16:03 Wes Hubbard MD is Attending Physician. rn 16:17 Soo Galeas RN is Primary Nurse. iw 16:19 Triage completed. iw 16:19 Arm band placed on. iw 16:30 Patient has correct armband on for positive identification. Bed in low position. Call bp light in reach. Side rails up X2. 17:01 No provider procedures requiring assistance completed. Patient did not have IV access iw during this emergency room visit. Administered Medications: No medications were administered Medication: 16:30 VIS not applicable for this client. bp Outcome: 16:54 Discharge ordered by . rn 17:14 Discharged to home via wheelchair, with family. bp 17:14 Condition: stable 17:14 Discharge instructions given to patient, Instructed on discharge instructions, follow up and referral plans. Demonstrated understanding of instructions, follow-up care. 17:15 Patient left the ED. bp Signatures: Soo Galeas RN RN Wes Hubbard MD MD rn Peltier, Brian, RN RN bp Corrections: (The following items were deleted from the chart) 16:19 16:18 Chief complaint: iw iw
--- NOTE | 2022-03-22 16:56 | EDPHYS ---
Physician Documentation [facility] Name: Shawn Gant Age: 76 yrs Sex: Male : 1945 Arrival Date: 03/22/2022 Time: 16:03 Bed 6 Private MD: ED Physician Wes Hubbard HPI: 03/22 16:21 This 76 yrs old Male presents to ER via EMS with complaints of Fall Injury. rn 16:21 Details of fall: The patient fell from an upright position, while standing. Onset: The rn symptoms/episode began/occurred just prior to arrival. Associated injuries: The patient sustained injury to the head. Severity of symptoms: At their worst the symptoms were mild, in the emergency department the symptoms are unchanged. The patient has experienced similar episodes in the past. The patient has not recently seen a physician. Pt reports fall from standing, hit head on floor, no LOC, does not feel like injured any extremities or anything other than head. Had trouble getting up 2/2 previous hip replacement and generalized weakness. Remembers all events. . Historical: - Allergies: 16:35 Polio Virus Vaccines; iw - PMHx: 16:35 borderline DM; COPD; mild; Hypertension; iw - PSHx: 16:35 multiple ortho; iw - Immunization history:: Adult Immunizations up to date. - Social history:: Smoking status: unknown. - Family history:: not pertinent. - Hospitalizations: : No recent hospitalization is reported. ROS: 16:21 Constitutional: Negative for fever, chills, and weight loss, Eyes: Negative for injury, rn pain, redness, and discharge, Neck: Negative for injury, pain, and swelling, Cardiovascular: Negative for chest pain, palpitations, and edema, Respiratory: Negative for shortness of breath, cough, wheezing, and pleuritic chest pain, Abdomen/GI: Negative for abdominal pain, nausea, vomiting, diarrhea, and constipation, Back: Negative for injury and pain, MS/Extremity: Negative for injury and deformity, Skin: Negative for injury, rash, and discoloration, Neuro: Negative for numbness, tingling, and seizure. Exam: 16:21 Constitutional: This is a well developed, well nourished patient who is awake, alert, rn and in no acute distress. Head/Face: + superficial hematoma right forehead, no active bleeding or depression Eyes: Pupils equal round and reactive to light, extra-ocular motions intact. Periorbital areas with no swelling, redness, or edema. Chest/axilla: Normal chest wall appearance and motion. Nontender with no deformity. Cardiovascular: Regular rate and rhythm. No pulse deficits. Respiratory: No increased work of breathing, no retractions or nasal flaring. Abdomen/GI: Soft, non-tender Skin: Warm, dry MS/ Extremity: Pulses equal, no cyanosis. Neurovascular intact. Full, normal range of motion. Equal circumference. Neuro: Awake and alert, GCS 15, oriented to person, place, time, and situation Vital Signs: 16:30 BP 145 / 75; Pulse 67; Resp 16; Temp 98; Pulse Ox 99% ; bp 17:01 BP 126 / 75; Pulse 74; Resp 16; Pulse Ox 98% ; iw MDM: 16:03 Patient medically screened. rn 16:51 Differential diagnosis: abrasion, closed head injury, contusion. Data reviewed: vital rn signs, nurses notes, and as a result, I will discharge patient. Counseling: I had a detailed discussion with the patient and/or guardian regarding: the historical points, exam findings, and any diagnostic results supporting the discharge/admit diagnosis, the need for outpatient follow up, to return to the emergency department if symptoms worsen or persist or if there are any questions or concerns that arise at home. Medical screen evaluation [facility]. Response to treatment: the patient's symptoms have markedly improved after treatment, and as a result, I will discharge patient. Special discussion: Based on the patient's history, exam and DX evaluation, there is no indication for emergent intervention or inpatient [place]. It is understood by the patient/guardian that if the SXs persist or worsen they need to return immediately for re-evaluation. I discussed with the patient/guardian in detail that at this point there is no indication for admission to the hospital. It is understood, however, that if the symptoms persist or worsen the patient needs to return immediately for re-evaluation. ED course: Pt refuses ct head, states feels fine, didn't want to be here, called EMS for lift assist not transport. Wants to go home and will have pick him up. Understands risks of leaving without ct head or further eval. . Administered Medications: No medications were administered Disposition Summary: 03/22/22 16:54 Discharge Ordered Location: Home rn Problem: new rn Symptoms: have improved rn Condition: Stable rn Diagnosis - Unspecified injury of head, initial encounter rn Followup: rn - With: Private Physician - When: As needed - Reason: Recheck today's complaints, Re-evaluation by your physician Discharge Instructions: - Discharge Summary Sheet rn - Head Injury, Adult rn - Hematoma rn Forms: - Medication Reconciliation Form rn - Thank You Letter rn - Antibiotic internship - Prescription Opioid Use rn Signatures: Soo Galeas, RN Wes Zamarripa MD MD rn Peltier, Brian, RN RN bp
[2022-03-22 19:05] VITALS: TEMP 98
[2022-03-22 19:07] VITALS: BP 126/75; O2SAT 98
== END 2022-03-22 17:15 | disposition home or self-care (01) ==
LOC: ER 16:01
DX: S00.83XA Contusion of other part of head, initial encounter (principal); I10 Essential (primary) hypertension; Z88.7 Allergy status to serum and vaccine
CPT/HCPCS: 99283

== ENCOUNTER 2022-05-24 02:06 | Observation (INO) | payer OTHER ==
--- OUTSIDE RECORDS SUMMARY | 2022-05-24 02:10 | XMS REPORT | Continuity of Care Document ---
:1945 Author Organization [facility] t Address [address] [place] [address] Care Team Providers Name Role Phone Yan [...] pain 3-09 ity of 00:00: [place] 00 [facility] Right hip Right hip Disease Active Uni vers pain pain 3-09 ity of 00:00: [place] 00 [facility] Allergies, Adverse Reactions, Alerts Allergy Allergy Status Severity Reaction(s) Onset Inactive Treating Comm ents Source Name Type Date Date Clinician Polio Propensi Active Rash Univers Virus ty to 6-18 ity of Vaccines adverse 00:00: [place] reaction 00 Medical s to Branch drug Social History Social Habit Start Date Stop Date Quantity Comments Source History of tobacco Cigarette Smoker [facility] use [facility] Alcohol intake [facility] Alcohol Comment Occasional Univers[facility] y [facility] [place] Cigarettes smoked 2019-01-30 2019-01-30 Univers ity of current (pack per 00:00:00 00:00:00 ) - Reported Branch Tobacco Comment 2015-09-23 2015-09-23 Has one month Univer sity of 00:00:00 00:00:00 since no smoking. [facility] Sex Assigned At [birth year] E[place] 00:00:00 [facility]:00 [facility] Smoking Status Start Date Stop Date Source Current some day smoker 2019-01-30 00:00:00 [facility] Medications Ordered Filled Start Stop Current Ordering Indication Dosage Frequency Signature Comments Components Source Medication Medication Date Date Medication? Clinician (SIG) Name Name mable Yes [id number] 1{tbl} Take 1 Univers en-codeine 7-10 tablet by ity of (TYLENOL-CO 00:00: mouth [place] DEINE #3) 00 every 4 Medical 300-30 mg (four) Branch tablet hours as needed for Pain (scale 4-6) or Pain (scale 7-10). acetaminoph Yes [id number] 1{tbl} Take 1 Univers en-codeine 7-10 tablet by ity of (TYLENOL-CO 00:00: mouth [place] DEINE #3) 00 every 4 Medical 300-30 mg (four) Branch tablet hours as needed for Pain (scale 4-6) or Pain (scale 7-10). acetaminoph Yes [id number] 1{tbl} Take 1 Univers en-codeine 7-10 tablet by ity of (TYLENOL-CO 00:00: mouth [place] DEINE #3) 00 every 4 Medical 300-30 mg (four) Branch tablet hours as needed for Pain (scale 4-6) or Pain (scale 7-10). acetaminoph Yes [id number] 1{tbl} Take 1 Univers en-codeine 7-10 tablet by ity of (TYLENOL-CO 00:00: mouth [place] DEINE #3) 00 every 4 Medical 300-30 mg (four) Branch tablet hours as needed for Pain (scale 4-6) or Pain (scale 7-10). acetaminoph Yes [id number] 1{tbl} Take 1 Univers en-codeine 7-10 tablet [...] Sprays in ity of ALLERGY 14:47: each [place] RELIEF) 50 32 nostril Medica l mcg/actuati daily. Branch on nasal spray tiotropium Yes 18ug Inhale 18 Un lauren (SPIRIVA 6-23 mcg daily. ity o f WITH 14:47: [place] HANDIHALER) 32 Medical 18 mcg Branch inhalation [...] [place] pressure [facility] Diastolic blood 2019-03-13 19:06:00 79 mm[Hg] [facility] Heart rate 2019-03-13 19:06:00 106 /min [facility] Respiratory rate 2019-03-13 19:06:00 18 /min Univ ersity [facility] [place] [facility] Body height 2019-03-13 19:06:00 180.3 cm [facility] [place] [facility] Body weight 2019-03-13 19:06:00 90.719 kg [facility] [place] [facility] BMI 2019-03-13 19:06:00 27.89 kg/m2 [facility] [place] [facility] Systolic blood 2019-03-13 19:06:00 125 mm[Hg] Univer sity of pressure [place] [facility] Diastolic blood 2019-03-13 19:06:00 79 mm[Hg] Unive rsity of [facility] Heart rate 2019-03-13 19:06:00 106 /min [facility] [place] [facility] Respiratory rate 2019-03-13 19:06:00 18 /min Univ [facility] [place] [facility] [place] Body height 2019-03-13 19:06:00 180.3 cm [facility] [place] [facility] [place] Body weight 2019-03-13 19:06:00 90.719 kg [facility] [place] [facility] BMI 2019-03-13 19:06:00 27.89 kg/m2 [facility] [place] [facility] Procedures Procedure Date / Time Performed Performing Clinician Sourc e XR ANKLE <3 VW LEFT 2019-03-13 19:17:48 Kevin Serna [facility] Encounters Start End Encounter Admission Attending Care Care Encounter Source Date/Time Date/Time Type Type Clinicians Facility Department ID 2019-03-29 2019-03-29 Telephone [facility] [id number] Univers 00:00:00 00:00:00 Yan [employer] [id number] it y of Surgical [id number] Dereck as Specialti [id number] Tx dical es 198 Branch [place] 2019-03-29 2019-03-29 Telephone CARTER [facility] [id number] 00:00:00 00:00:00 Yan [employer] [id number] Surgical [id number] Specialti [id number] es 198 [place] 2019-03-13 2019-03-13 [facility] CARTER Serna [id number] Univers 14:17:47 23:59:00 Encounter Kevin [facility] [id number] ity of Surgical [id number] Dereck as Specialti [phone] Tx dical es 8[address] [facility] 2019-03-13 2019-03-13 [facility] [id number] 14:17:47 23:59:00 Encounter Kevin S Health [id number] Surgical [id number] Specialti [id number] es 809 [place] 2019-03-13 2019-03-13 Office [facility] [id number] [facility] 14:01:05 14:50:54 Visit Kevin S Health [id number] it y of Surgical [id number] Dereck as Specialti [id number] Tx dical es 198 [facility] 2019-03-13 2019-03-13 Office [facility] [id number] 14:01:05 14:50:54 Visit Kevin [facility] [id number] Surgical [id number] Specialti [id number] es 198 [place] Results Test Description Test Time Test Comments Results Result Comments Source SARS-COV2/RT-PCR ([facility]) 2020-01-09 07:59:00 Test Item Value Reference Range Interpretation Comme nts SARS-COV2/RT-PCR (test code = 5053051) Not Detected Not Detected, N egative SARS-COV-2 PERFORMING LAB (test code = [id number]) Negative results do not preclude SARS-CoV-2 infection [...] of the Act.Fact Sheet for Healthcare Pro viders:https://www.[employer]Documents/Xpert%20Xpress%20SARS%20CoV-2/Fact%20Sh eets/3023802%21RIFM-TCV-3%20HEALTHCARE%20PROVIDERS%20FACT%20SHEET.pdfFact Sheet for Healthcare Patients:https://www.[employer]/Documents/Xpert%20Xpress%20SARS%20CoV-2/Fact%20Sheets/3023801%20SARS-COV -2%20PATIENT%20FACT%20SHEET.pdfPerforming Laboratory:[facility], [place] [address]SA ANKLE <3 VW [id number] 19:42:43Good signs of callus formation there has been a slight shift in the mortise but it is set at this point.[facility]
[2022-05-24] MEDS ORDERED: BENZONATATE 100 MG CAP PO ONE (03:06)
[2022-05-24] MEDS ORDERED: ALBUTEROL 2.5 MG/3 ML NEB SOL ONE (03:06)
[2022-05-24] MEDS ORDERED: IPRATROPIUM BROM 0.5MG/2.5ML ONE (03:06)
[2022-05-24 03:13] LABS: Absolute Lymphocytes (CBC) 0.3 K/uL (0.7-4.9); MPV 7.3 fL (7.6-11.3); RBC Red Blood Cell Count 4.06 M/uL (4.33-5.43)
[2022-05-24 03:30] LABS: Protime INR 1.09
[2022-05-24 03:34] LABS: Potassium 3.7 mmol/L (3.5-5.1)
[2022-05-24 03:39] LABS: SARS-CoV-2 Antigen Rapid Res Negative (Negative)
[2022-05-24 03:44] LABS: Troponin High Sensitivity 139.7 pg/mL (<58.9)
[2022-05-24] MEDS ORDERED: ACETAMINOPHEN 500 MG TAB ONE (03:56)
--- NOTE | 2022-05-24 04:38 | ER ---
Nurse's Notes [facility] Name: Shawn Gant Age: 76 yrs Sex: Male : 1945 Arrival Date: 05/24/2022 Time: 02:09 Bed 7 Private MD: Diagnosis: Subsequent non-ST elevation (NSTEMI) myocardial infarction;COPD/ Chronic obstructive pulmonary disease, unspecified Presentation: 05/24 02:29 Chief complaint: Patient states: SOB cough diff breathing reports midsternal non kl radiating pain similar to reflux pain rates at a 3 took also states elevated temp at home 103 took aspirin x 3 tablets 2 hours [employer]. Coronavirus screen: Vaccine status: Patient reports receiving the 2nd dose of the covid vaccine. Ebola Screen: Patient negative for fever greater than or equal to 101.5 degrees Fahrenheit, and additional compatible Ebola Virus Disease symptoms. Initial Sepsis Screen: Does the patient meet any 2 criteria? No. Patient's initial sepsis screen is negative. Does the patient have a suspected source of infection? No. Patient's initial sepsis screen is negative. Risk Assessment: Do you want to hurt yourself or someone else? Patient reports no desire to harm self or others. 02:29 Method Of Arrival: Ambulatory kl 02:29 Acuity: MARIO 3 kl 02:32 Care prior to arrival: Medication(s) given: Albuterol Neb x 1, ASA, 325 mg, x 3. kl Triage Assessment: 02:33 General: Appears in no apparent distress. comfortable, Behavior is calm, cooperative. kl Pain: Complains of pain in mid-sternal area. EENT: No deficits noted. No signs and/or symptoms were reported regarding the EENT system. Neuro: No deficits noted. Cardiovascular: Heart tones S1 S2 Rhythm is sinus tachycardia. Respiratory: Airway is patent Trachea midline Respiratory effort is even, unlabored, Breath sounds with wheezes in left upper lobe, right posterior upper lobe, right posterior middle lobe and right posterior lower lobe expiratory wheezes. GI: No deficits noted. No signs and/or symptoms were reported involving the gastrointestinal system. : No deficits noted. No signs and/or symptoms were reported regarding the genitourinary system. Derm: No deficits noted. No signs and/or symptoms reported regarding the dermatologic system. Musculoskeletal: No deficits noted. No signs and/or symptoms reported regarding the musculoskeletal system. Historical: - Allergies: 02:37 Polio Virus Vaccines; kl - Home Meds: 02:37 Advair Diskus 250-50 mcg/dose Inhl dsdv [Active]; amlodipine oral [Active]; fluticasone kl [Active]; Folbic Oral [Active]; increse elipta [Active]; irbesartan Oral [Active]; loratadine Oral [Active]; Metoprolol Tartrate Oral [Active]; montelukast Oral [Active]; paroxetine Oral [Active]; Xanax Oral [Active]; Trelegy Ellipta 100-62.5-25 mcg inhalation dsdv [Active]; fluticasone furoate 200 mcg/actuation inhalation dsdv [Active]; metoprolol tartrate 25 mg Oral tab 1 tab 2 times per day [Active]; - PMHx: 02:37 borderline DM; COPD; mild; Hypertension; - PSHx: 02:37 multiple ortho; kl - Immunization history:: Adult Immunizations up to date. - Social history:: Smoking status: Patient reports the use of cigarette tobacco products, former smoker. Screenin:42 Abuse screen: Denies threats or abuse. Nutritional screening: No deficits noted. Tuberculosis screening: No symptoms or risk factors identified. Fall Risk None identified. Assessment: 03:59 Reassessment: Patient and/or family updated on plan of care and expected duration. Pain ll3 level reassessed. Patient is alert, oriented x 3, equal unlabored respirations, skin warm/dry/pink. 06:05 Reassessment: Patient appears in no apparent distress at this time. Patient and/or family updated on plan of care and expected duration. Pain level reassessed. Patient is alert, oriented x 3, equal unlabored respirations, skin warm/dry/pink. Patient denies pain at this time. Patient states feeling better. 06:06 Pain: Pain does not radiate. Pain began gradually. Vital Signs: 02:29 BP 113 / 69; Pulse 114; Resp 22; Temp 99.1(O); Pulse Ox 98% on R/A; Pain 3/10; kl 03:15 BP 110 / 60; Pulse 95; Resp 22; Pulse Ox 100% on Nebulizer Mask; kl 04:08 BP 124 / 67; Pulse 106; Resp 23; Temp 99.6(O); Pulse Ox 99% on R/A; ll3 05:40 BP 95 / 60; Pulse 111; Resp 23; Pulse Ox 96% on R/A; ll3 06:25 Weight 83.91 kg (R); Height 5 ft. 11 in. (180.34 cm); kl 07:30 BP 106 / 68; Pulse 91; Resp 19; Pulse Ox 97% on R/A; tw2 11:30 BP 96 / 43; Pulse 69; Resp 20; Pulse Ox 100% on R/A; tw2 06:25 Body Mass Index 25.80 (83.91 kg, 180.34 cm) kl ED Course: 02:09 Patient arrived in ED. bp1 02:12 Michaelle Rehman MD is Attending Physician. sp3 02:32 Triage completed. kl 02:39 XRAY Chest (1 view) In Process Unspecified. EDMS 03:00 Flu Sent. bb 03:00 SARS RAPID Sent. bb 03:00 Basic Metabolic Panel Sent. bb 03:00 CBC with Diff Sent. bb 03:01 NT PRO-BNP Sent. bb 03:01 PT-INR Sent. bb 03:01 Troponin HS Sent. bb 03:15 Basic Metabolic Panel Sent. kl 03:15 CBC with Diff Sent. kl 03:15 NT PRO-BNP Sent. kl 03:15 PT-INR Sent. kl 03:15 Troponin HS Sent. kl 03:44 Notified ED physician of a critical lab result(s). troponin of 139.7 Dr Rehman notified. bb 04:37 Elier Vargas MD is Hospitalizing Provider. sp3 04:41 Hospitalizing Provider role handed off by Elier Vargas MD sp3 04:41 Jack Alarcon MD is Hospitalizing Provider. sp3 05:32 Shannan Li, FIONA is Primary Nurse. mw 05:41 No provider procedures requiring assistance completed. Patient maintains SpO2 ll3 saturation greater than 95% on room air. 05:41 Arm band placed on. ll3 05:41 Patient has correct armband on for positive identification. Bed in low position. Call ll3 light in reach. Side rails up X 1. Client placed on continuous cardiac and pulse oximetry monitoring. NIBP monitoring applied. 06:06 Patient admitted, IV remains in place. kl 12:39 Primary Nurse role handed off by Shannan Li RN tw2 12:39 Lynda Dillon, FIONA is Primary Nurse. tw2 15:58 Report given to FIONA Armendariz. tw2 Administered Medications: 03:15 Drug: DuoNeb (albuterol 2.5 mg, ipratropium 0.5 mg) (3:1) (2.5 mg - 0.5 mg) 3 ml Route: kl Nebulizer; 03:50 Follow up: Response: No adverse reaction; Marked relief of symptoms kl 03:15 Drug: Tessalon Perle (benzonatate) 200 mg Route: PO; kl 03:50 Follow up: Response: No adverse reaction kl 03:59 Drug: Tylenol 1000 mg Route: PO; ll3 Medication: 05:41 VIS not applicable for this client. ll3 Outcome: 04:37 Decision to Hospitalize by Provider. sp3 06:05 Condition: stable kl 06:05 Instructed on the need for admit. 15:24 Admitted to ER Hold. Please see [facility] for further documentation. tw2 15:58 Admitted to ER Hold. Please see [facility] for further documentation. tw2 15:58 Condition: stable 15:58 Instructed on the need for admit. 16:00 Patient left the ED. tw2 Signatures: Dispatcher [employer] EDMS Sury Enamorado RN RN Shannan Li RN RN mw Ballard, Brenda, RN RN bb Wise, Tara, RN RN 2 Yaritza Bowles Setul, MD MD sp3 Emiliano Hussein RN RN ll3 Corrections: (The following items were deleted from the chart) 15:24 06:05 Admitted to ER Hold. Please see [facility] for further documentation. [facility]
--- NOTE | 2022-05-24 04:38 | EDPHYS ---
Physician Documentation [facility] Name: Shawn Gant Age: 76 yrs Sex: Male : 1945 Arrival Date: 05/24/2022 Time: 02:09 Bed 7 Private MD: ED Physician Michaelle Rehman HPI: 05/24 02:55 This 76 yrs old Male presents to ER via Ambulatory with complaints of Chest Pain, sp3 Breathing Difficulty. 02:55 76-year-old male with a history of COPD, hypertension presents to the ED for COPD sp3 symptoms and upper respiratory congestion with concerns of possible influenza or COVID infection. Patient is fully vaccinated states he is just concerned and wants to be tested. Chest pain is mild and he states that it was mainly reflux related which is now subsided secondary to taking Mylanta. Patient also took several nebulizers and states that his wheezing is also improved. He is mainly concerned about a possible viral infection. Denies any headache, neck pain, current chest pain, abdominal pain, nausea, vomiting, diarrhea, rash, fever, extremity pain, or any other ROS at this time.. Historical: - Allergies: 02:37 Polio Virus Vaccines; kl - Home Meds: 02:37 Advair Diskus 250-50 mcg/dose Inhl dsdv [Active]; amlodipine oral [Active]; fluticasone kl [Active]; Folbic Oral [Active]; increse elipta [Active]; irbesartan Oral [Active]; loratadine Oral [Active]; Metoprolol Tartrate Oral [Active]; montelukast Oral [Active]; paroxetine Oral [Active]; Xanax Oral [Active]; Trelegy Ellipta 100-62.5-25 mcg inhalation dsdv [Active]; fluticasone furoate 200 mcg/actuation inhalation dsdv [Active]; metoprolol tartrate 25 mg Oral tab 1 tab 2 times per day [Active]; - PMHx: 02:37 borderline DM; COPD; mild; Hypertension; kl - PSHx: 02:37 multiple ortho; kl - Immunization history:: Adult Immunizations up to date. - Social history:: Smoking status: Patient reports the use of cigarette tobacco products, former smoker. ROS: 02:56 Constitutional: Negative for fever, chills, and weight loss, Eyes: Negative for injury, sp3 pain, redness, and discharge, Neck: Negative for injury, pain, and swelling, Cardiovascular: Negative for chest pain, palpitations, and edema, Abdomen/GI: Negative for abdominal pain, nausea, vomiting, diarrhea, and constipation, Back: Negative for injury and pain, MS/Extremity: Negative for injury and deformity, Skin: Negative for injury, rash, and discoloration, Neuro: Negative for headache, weakness, numbness, tingling, and seizure, Psych: Negative for depression, anxiety, suicide ideation, homicidal ideation, and hallucinations, Allergy/Immunology: Negative for hives, rash, and allergies, Endocrine: Negative for neck swelling, polydipsia, polyuria, polyphagia, and marked weight changes. 02:56 All other systems are negative. Exam: 02:57 Constitutional: This is a well developed, well nourished patient who is awake, alert, sp3 and in no acute distress. Head/Face: Normocephalic, atraumatic. Eyes: Pupils equal round and reactive to light, extra-ocular motions intact. Lids and lashes normal. Conjunctiva and sclera are non-icteric and not injected. Cornea within normal limits. Periorbital areas with no swelling, redness, or edema. ENT: Nares patent. No nasal discharge, no septal abnormalities noted. External auditory canals are clear. Oropharynx with no redness, swelling, or masses, exudates, or evidence of obstruction, uvula midline. Mucous membranes moist. Neck: Trachea midline, no thyromegaly or masses palpated, and no cervical lymphadenopathy. Supple, full range of motion without nuchal rigidity, or vertebral point tenderness. No Meningismus. Chest/axilla: Normal chest wall appearance and motion. Nontender with no deformity. No lesions are appreciated. Abdomen/GI: Soft, non-tender, with normal bowel sounds. No distension or tympany. No guarding or rebound. No evidence of tenderness throughout. Back: No spinal tenderness. No costovertebral tenderness. Full range of motion. Skin: Warm, dry with normal turgor. Normal color with no rashes, no lesions, and no evidence of cellulitis. 02:57 Cardiovascular: Rate: tachycardic, States that his rate constantly runs high. After the albuterol, heart rate is been in the 110-115 range.. 02:57 ECG was reviewed by the Attending Physician. EKG demonstrates sinus tachycardia at 110 sp3 bpm with normal intervals, poor QRS, slight rightward axis, nonspecific diffuse ST/changes without evidence of acute ischemia. 02:57 Respiratory: Expiratory wheezes bilaterally without evidence of accessory muscle use, tachypnea, or any respiratory distress.. Vital Signs: 02:29 BP 113 / 69; Pulse 114; Resp 22; Temp 99.1(O); Pulse Ox 98% on R/A; Pain 3/10; kl 03:15 BP 110 / 60; Pulse 95; Resp 22; Pulse Ox 100% on Nebulizer Mask; kl 04:08 BP 124 / 67; Pulse 106; Resp 23; Temp 99.6(O); Pulse Ox 99% on R/A; ll3 05:40 BP 95 / 60; Pulse 111; Resp 23; Pulse Ox 96% on R/A; ll3 06:25 Weight 83.91 kg (R); Height 5 ft. 11 in. (180.34 cm); kl 07:30 BP 106 / 68; Pulse 91; Resp 19; Pulse Ox 97% on R/A; tw2 11:30 BP 96 / 43; Pulse 69; Resp 20; Pulse Ox 100% on R/A; tw2 06:25 Body Mass Index 25.80 (83.91 kg, 180.34 cm) kl MDM: 02:22 Patient medically screened. sp3 02:58 Data reviewed: vital signs, nurses notes. ED course: 76-year-old male with mild COPD sp3 exacerbation. We will test for influenza and COVID in addition to standard cardiac work-up. Differential diagnosis includes influenza, COVID-19, bronchitis, COPD, CHF, ACS. I am not highly suspicious for ACS, TAD, sepsis, shock. If work-up is negative and patient continues to feel as he is now, we will discharge patient home with PCP follow-up.. 04:34 ED course: Pt will get aspirin and get admitted for NSTEMI and further work-up.. sp3 11 02:22 Order name: Basic Metabolic Panel; Complete Time: 04:33 sp3 11 02:22 Order name: CBC with Diff; Complete Time: 03:43 sp3 05/24 02:22 Order name: NT PRO-BNP; Complete Time: 04:33 sp3 11/08 02:22 Order name: PT-INR; Complete Time: 03:43 sp3 05/24 02:22 Order name: Troponin HS; Complete Time: 04:33 sp3 05/24 02:49 Order name: SARS RAPID; Complete Time: 03:43 sp3 05/24 02:22 Order name: XRAY Chest (1 view) sp3 05/24 02:49 Order name: Flu; Complete Time: 04:33 sp3 05/24 09:22 Order name: Echo with Doppler EDMS 05/24 09:22 Order name: Troponin High Sensitivity EDMS 05/24 15:21 Order name: Troponin High Sensitivity EDMS 05/24 02:22 Order name: EKG; Complete Time: 02:23 sp3 05/24 02:22 Order name: Cardiac monitoring; Complete Time: 02:42 sp3 05/24 02:22 Order name: EKG - Nurse/Tech; Complete Time: 02:42 sp3 05/24 02:22 Order name: IV Saline Lock; Complete Time: 03:00 sp3 05/24 02:22 Order name: Labs collected and sent; Complete Time: 03:00 sp3 05/24 02:22 Order name: O2 Per Protocol; Complete Time: 02:42 sp3 05/24 02:22 Order name: O2 Sat Monitoring; Complete Time: 02:42 sp3 05/24 09:22 Order name: 60g Consistent Carbohydrate (ADA ) EDMS Administered Medications: 03:15 Drug: DuoNeb (albuterol 2.5 mg, ipratropium 0.5 mg) (3:1) (2.5 mg - 0.5 mg) 3 ml Route: kl Nebulizer; 03:50 Follow up: Response: No adverse reaction; Marked relief of symptoms kl 03:15 Drug: Tessalon Perle (benzonatate) 200 mg Route: PO; kl 03:50 Follow up: Response: No adverse reaction kl 03:59 Drug: Tylenol 1000 mg Route: PO; ll3 Disposition Summary: 05/24/22 04:37 Hospitalization Ordered Hospitalization Status: Inpatient Admission sp3 Condition: Stable sp3 Problem: an acute exacerbation sp3 Symptoms: have worsened sp3 Bed/Room Type: Standard sp3 Provider: Jack Alarcon(05/24/22 04:41) sp3 Location: Telemetry/MedSurg (Inpatient)(05/24/22 14:08) bd Room Assignment: 406(05/24/22 15:29) dw Diagnosis - Subsequent non-ST elevation (NSTEMI) myocardial infarction sp3 - COPD/ Chronic obstructive pulmonary disease, unspecified sp3 Forms: - Medication Reconciliation Form sp3 - SBAR form sp3 Signatures: Dispatcher [employer] EDMS Valerie Whitfield Kimberly, RN RN Shannan Li RN RN mw Woody, Diana, RN RN dw Patel, Setul, MD MD sp3 Emiliano Hussein RN RN ll3 Corrections: (The following items were deleted from the chart) 04:41 04:37 Elier Vargas sp3 sp3 05:32 04:37 Telemetry/MedSurg (Inpatient) sp3 mw 05:32 04:37 sp3 mw 05:32 05:32 HLD1 mw mw 14:08 05:32 [facility] ER HOLD mw bd 14:08 05:32 ERHOLD- mw bd 14:11 14:08 408 bd bd 15:29 14:11 bd dw
[2022-05-24] MEDS ORDERED: ENOXAPARIN 40 MG/0.4 ML SQ ONE ×2 (09:17→15:02)
[2022-05-24] MEDS ORDERED: GUAIFENESIN/CODEINE 5ML UCUP PO PRN (09:17)
[2022-05-24] MEDS ORDERED: AZITHROMYCIN IV 500 MG in NA CHLORIDE 0.9% 250 ML IVPB ONE (09:17)
[2022-05-24] MEDS ORDERED: D50W 25 GM/50 ML SYRINGE IV PRN (09:20)
[2022-05-24] MEDS ORDERED: GLUCAGON 1 MG/VIAL IM PRN (09:20)
[2022-05-24] MEDS ORDERED: D10W 125 ML IV PRN (09:42)
[2022-05-24] MEDS ORDERED: GUAIFENESIN/CODEINE 5ML UCUP ONE (10:20)
[2022-05-24] MEDS: INSULIN -REGULAR HUMAN 50 UNIT/0.5 ML ML SQ SCH ×3 (11:30→21:00)
--- NOTE | 2022-05-24 13:10 | RAD REPORT ---
EXAM DESCRIPTION: RAD - Chest Single View - 05/24/2022 2:37 am CLINICAL HISTORY: 76 years, Male, DYSPNEA COMPARISON: 01/24/2022 FINDINGS: Single view of the chest was obtained portable. Prior films were compared. External EKG le ads within the [id number] limits diagnosis. There is mild hyperinflation. The cardiomediastinal si lhouette demonstrate to be unremarkable. The heart is not enlarged. The thoracic aorta is unremarkabl e. The pulmonary vasculature is normal distribution. Costophrenic angles are sharp. No areas of con solidation or masses are seen. Minimal anterior spondylosis lower thoracic spine and the left first c ostochondral spurring. The rest of the soft tissue and bony structures demonstrate to be unremarkable . IMPRESSION: Mild hyperinflation. No acute cardiopulmonary disease seen. Electronically signed by: Leo Srinivasan MD 05/24/2022 2:50 AM RIB BUILDER Due to temporary technical issues with the PACS/Fluency reporting system, reports are being signed by the in house radiologists without review as a courtesy to insure prompt reporting. The interpreting radiologist is fully responsible for the content of the report.
--- NOTE | 2022-05-24 13:55 | EKG ---
Test Date: 2022-05-24 Test Time: 02:29:14 Brick [place]ney Supervisor: CORNELIUS MEASUREMENT RESULTS: Intervals: Rate: 109 GA: 172 QRSD: 78 QT: 328 QTc: 441 Maxwell: P: 77 GA: 172 QRS: 266 T: 77 INTERPRETIVE STATEMENTS: Sinus tachycardia Right superior axis deviation Abnormal ECG Compared to ECG 03/21/2022 06:48:19 Right superior axis now present Left-axis deviation no longer present Myocardial infarct finding no longer present Electronically Signed On 05-24-22 13:54:04 INFECTION CONTROL RN by Demetrio Aguilar
--- NOTE | 2022-05-24 14:24 | ECHO ---
HEIGHT: ft in WEIGHT: lb oz DATE OF STUDY: 05/24/[address]: Jack Alarcon MD 2-DIMENSIONAL: YES M.MODE: YES DOPPLER: YES COLOR FLOW: YES TDS: YES PORTABLE: YES DEFINITY: BUBBLE STUDY: DIAGNOSIS: ABNORMAL TROPONIN CARDIAC HISTORY: CATHERIZATION: NO SURGERY: NO PROSTHETIC VALVE: NO PACEMAKER: NO MEASUREMENTS (cm) DIASTOLIC (NORMALS) SYSTOLIC (NORMALS) IVSd 1.1 (0.6-1.2) LA Diam 2.5 (1.9-4.0) LVEF 50% LVIDd 4.3 (3.5-5.7) LVIDs 3.2 (2.0-3.5) %FS 25% LVPWd 1.3 (0.6-1.2) Ao Diam 2.9 (2.0-3.7) 2 DIMENSIONAL ASSESSMENT: RIGHT ATRIUM: NORMAL LEFT ATRIUM: NORMAL RIGHT VENTRICLE: NORMAL LEFT VENTRICLE: NORMAL TRICUSPID VALVE: MILD TRICUSPID REGURGITATION MITRAL VALVE: NORMAL PULMONIC VALVE: NORMAL AORTIC VALVE: NORMAL PERICARDIAL EFFUSION: NONE AORTIC ROOT: NORMAL LEFT VENTRICULAR WALL MOTION: UNABLE TO EVALUATE ACCURACY DUE TO POOR WINDOWS DOPPLER/COLOR FLOW: MILD TRICUSPID REGURGITATION COMMENTS: POOR WINDOWS. LEFT VENTRICULAR EJECTION FRACTION APPPEARS NORMAL 50-55%. MILD TRICUSPID REGURGITATION. TECHNOLOGIST: SANDRITA TELLO
[2022-05-24] MEDS: IPRATROPIUM BROM 0.5MG/2.5ML NEB SCH ×2 (14:34→19:50)
[2022-05-24] MEDS: ALBUTEROL 2.5 MG/3 ML NEB SOL NEB SCH ×2 (14:34→19:50)
[2022-05-24] MEDS ORDERED: NA CHLORIDE 0.9% 250 ML ONE (15:02)
[2022-05-24] MEDS ORDERED: AZITHROMYCIN 500 MG INJ IVPB ONE (15:02)
[2022-05-24 16:16] VITALS: BMI 25.7
[2022-05-24 17:13] VITALS: O2SAT 99
[2022-05-24] MEDS ORDERED: ALPRAZOLAM 0.5 MG TABLET PO PRN (21:05)
[2022-05-24] MEDS: METOPROLOL TAR 25 MG TAB PO SCH (21:50)
[2022-05-24] MEDS: LIDOCAINE VISCOUS 2% SOLN 15 ML UDC PO SCH (22:30)
[2022-05-24] MEDS ORDERED: HYDROCODONE/APAP 5/325 MG TAB PO PRN (22:38)
[2022-05-24] MEDS: MAGNES/ALUMIN/SIMET 30ML UCUP PO SCH (22:46)
[2022-05-25] MEDS: IPRATROPIUM BROM 0.5MG/2.5ML NEB SCH ×2 (01:40→07:45)
[2022-05-25] MEDS: ALBUTEROL 2.5 MG/3 ML NEB SOL NEB SCH ×2 (01:40→07:45)
--- NOTE | 2022-05-25 02:16 | HP ---
Date of Admission: 05/24/2022 Chief Complaint: Shortness of breath. History Of Present Illness: This is a 76-year-old male patient who started to have some fever, cough, chest congestion, shortness of breath as of yesterday and came into emergency room today and after he was evaluated, he was admitted to the hospital. The patient also had a bad episode of acid reflux yesterday and he has been having some pain in his lower esophagus when he tries to eat or drink something since yesterday's acid reflux spell. After he was evaluated, I was contacted requesting admission to the hospital and I saw him in the emergency room this morning. Allergies: NO KNOWN ALLERGIES. Medications: List reviewed. Review of Systems: Respiratory: As mentioned above. Constitutional: As mentioned above. GI: As mentioned above. All other systems reviewed and negative. Past Medical History: Significant for type 2 diabetes mellitus, COPD, hypertension, hyperlipidemia, diverticulosis, benign prostatic hypertrophy, osteoarthritis at multiple sites, anxiety, and panic attack since 1969. Past Surgical History: Significant for hernia repair and hip surgery on November 20, 2017. Family History: Mother had lung cancer. Social History: Prior history of smoking, not at present time. Use of alcohol, rarely. Physical Examination: Vital Signs: Height 5 feet 11 inches, weight 185 pounds, temperature 99.1, pulse 114, respiratory rate 22, blood pressure 113/69, oxygen saturation 98%. General: Awake, alert, oriented, not in distress. HEENT: Head atraumatic, normocephalic. Conjunctivae nonerythematous. Sclerae white. Mouth, no thrush or edema noted. Ears/Nose, no mass, lesion, discharge noted. Neck: Supple. No JVD, lymph nodes, bruit, thyromegaly noted. Lungs: Bilateral good equal air entry. Clear to auscultation. No rhonchi. No rales. Heart: Normal heart sounds, no murmur or gallop. Abdomen: Soft, bowel sounds normal. No guarding, rigidity, tenderness, mass, hepatosplenomegaly, distention, or bruit noted. Extremities: No leg edema. No calf tenderness. Skin: No rash, ulcer, cellulitis. Lymphatics: No lymph node enlargement in neck, supraclavicular, infraclavicular region. Neuro: No focal neurological deficit. Chest: Unremarkable. External Genitalia: Deferred. Rectal: Deferred. Laboratory Data: White count 5.40, hemoglobin 13.6, platelets 182. Sodium 135, potassium 3.7, chloride 99, bicarb 25, BUN 9, creatinine 1.11, glucose 138. Troponin 139.7. ProBNP 1240. Chest x-ray: No acute cardiopulmonary changes. Impression: 1. Acute exacerbation of chronic obstructive pulmonary disease. 2. Chest pain, atypical. 3. Hypertension. 4. Hyperlipidemia. 5. Type 2 diabetes mellitus. 6. Anxiety. 7. Diverticulosis. 8. Benign prostatic hypertrophy. 9. Osteoarthritis, multiple sites. Plan: We will admit patient to hospital for further evaluation and management of this problem. Patient is appropriate for inpatient and is expected to spend 2 midnights in the hospital. We will go ahead and start him on IV antibiotic, which is azithromycin. Nebulizer treatment with albuterol and Atrovent will be given per order. We will repeat cardiac enzymes today and get an echo with Doppler. His elevated troponin is likely due to demand ischemia and not myocardial infarction. We will repeat troponin level today. Details and plan of treatment discussed with the patient. We will also start him on DVT prophylaxis using Lovenox. Diabetes will be managed with sliding scale insulin. Plan of treatment discussed with him. INDRA/MODL Voice ID: [id number] GEORGIANA
[2022-05-25] MEDS: INSULIN -REGULAR HUMAN 50 UNIT/0.5 ML ML SQ SCH (07:30)
[2022-05-25] MEDS ORDERED: AZITHROMYCIN IV 250 MG in NA CHLORIDE 0.9% 250 ML IVPB SCH (09:00)
[2022-05-25] MEDS: MAGNES/ALUMIN/SIMET 30ML UCUP PO SCH (09:00)
[2022-05-25] MEDS ORDERED: MONTELUKAST 10 MG TAB PO SCH (09:00)
[2022-05-25] MEDS ORDERED: PARoxetine HCL 10 MG TAB PO SCH (09:00)
[2022-05-25] MEDS ORDERED: ENOXAPARIN 40 MG/0.4 ML SQ SCH (09:00)
[2022-05-25] MEDS ORDERED: ASPIRIN 81 MG CHEWABLE TABLET PO SCH (09:00)
[2022-05-25] MEDS ORDERED: TAMSULOSIN 0.4 MG SR CAP PO SCH (09:00)
[2022-05-25] MEDS ORDERED: HYDROCODONE/APAP 5/325 MG TAB PO SCH (09:00)
[2022-05-25] MEDS: METOPROLOL TAR 25 MG TAB PO SCH (09:44)
[2022-05-25] MEDS: LIDOCAINE VISCOUS 2% SOLN 15 ML UDC PO SCH (09:45)
[2022-05-25 09:46] VITALS: BP 134/73
[2022-05-25 11:15] VITALS: TEMP 97.3
[2022-05-25] MEDS ORDERED: ATORVASTATIN 40 MG TAB PO SCH (21:00)
[2022-05-25] MEDS ORDERED: LIDOCAINE VISCOUS 2% SOLN 15 ML UDC PO SCH (22:30)
--- NOTE | 2022-05-26 08:15 | DS ---
Date of Discharge: 05/25/2022 Disposition: Discharged to go home. Physical Examination: HEENT: Unremarkable. Lungs: Clear to auscultation. Heart: Sounds normal. Abdomen: Soft. Bowel sounds normal. No guarding, rigidity, tenderness, distention. Extremities: No leg edema. Laboratory Data: Upon admission; sodium 135, potassium 3.7, chloride 99, bicarb 25, BUN 9, creatinine 1.11, glucose 138. Initial troponin 139, second troponin 189, third troponin 174. White count 5.4, hemoglobin 13.6, platelets 182. Discharge Medications: 1. One continue all prior home medications. 2. Take new medications as below;. a. Sucralfate liquid 1 g by mouth 4 times a day and the patient to take it 15 minutes before meal and at bedtime. b. Omeprazole 40 mg, take 1 capsule by mouth daily 30 minutes before breakfast. c. Azithromycin 250 mg, take 1 tablet by mouth daily for 1 week. 3. Follow up at my office next week. 4. Follow up with Dr. Baldwin in 2 weeks. Hospital Course: This is a 76-year-old male patient, came into emergency room with complaints of shortness of breath. The patient started to have some fever, cough, chest congestion, and shortness of breath. He had episode of acid reflux and since that time, he has been having pain in the lower esophagus with swallowing. Last night, he was given lidocaine viscous and Maalox and that actually helped to relieve his symptoms very well. This morning when I saw him, he was feeling much better. The patient had a negative nuclear stress test done in January of this year while he was in the hospital last time. He does not have any symptoms indicating any angina and his chest pain is atypical as mentioned above. With swallowing in the lower esophagus, he has pain, which actually got relieved last night with medication as given. This morning, he is feeling much better and was discharged to go home in stable condition with above-mentioned medications and instructions. Final Diagnoses: 1. Acute exacerbation of chronic obstructive pulmonary disease. 2. Chest pain, atypical. 3. Hypertension. 4. Hyperlipidemia. 5. Type 2 diabetes mellitus. 6. Anxiety. 7. Diverticulosis. 8. Benign prostatic hypertrophy. 9. Osteoarthritis, multiple sites. INDRA/MODL Voice ID: [id number] Report ID: [id number] MTDD
== END 2022-05-25 10:05 | disposition home health service (06) ==
LOC: ER 02:06 → ERHOLD 09:29 → INTOOBSV 09:29 → 4TH 15:41
PROVIDERS: ADMIT Internal Medicine; ATTEND Internal Medicine
DX: J44.1 Chronic obstructive pulmonary disease with (acute) exacerbation (principal); R07.89 Other chest pain; K21.9 Gastro-esophageal reflux disease without esophagitis; E11.9 Type 2 diabetes mellitus without complications; I10 Essential (primary) hypertension; E78.5 Hyperlipidemia, unspecified; N40.0 Benign prostatic hyperplasia without lower urinary tract symptoms; F41.9 Anxiety disorder, unspecified; K57.90 Diverticulosis of intestine, part unspecified, without perforation or abscess without bleeding; M19.90 Unspecified osteoarthritis, unspecified site; Z20.822 Contact with and (suspected) exposure to COVID-19
CPT/HCPCS: 93005; 93306; 85025; 80048; 36415 ×2; 85610; 82947 ×4; 84484 ×3; 83880; 87804 ×2; 71045; 94640 ×2; 99285; 87811; J0456; J1650; J7050; G0378 ×3

== ENCOUNTER 2022-06-04 11:45 | Inpatient (IN) | payer OTHER ==
--- OUTSIDE RECORDS SUMMARY | 2022-06-04 11:49 | XMS REPORT | Continuity of Care Document ---
:1945 Author Organization [facility] t Address [address] [place] [address] Care Team Providers Name Role Phone Yan [...] 3-09 ity of 00:00: [place] 00 [facility] Right hip Right hip Disease Active Uni vers pain pain 3-09 ity of 00:00: [place] 00 [facility] Allergies, Adverse Reactions, Alerts Allergy Allergy Status Severity Reaction(s) Onset Inactive Treating Comm ents Source Name Type Date Date Clinician Polio Propensi Active Rash Univers Virus ty to 6-18 ity of Vaccines adverse 00:00: [place] reaction 00 Medical s to Branch drug Social History Social Habit Start Date Stop Date Quantity Comments Source History of tobacco Cigarette Smoker [facility] use [facility] [place] Alcohol intake [facility] Alcohol Comment Occasional [facility] [place] Cigarettes smoked 2019-01-30 2019-01-30 Univers ity of current (pack per 00:00:00 00:00:00 ) - Reported Branch Tobacco Comment 2015-09-23 2015-09-23 Has one month Univer sity of 00:00:00 00:00:00 since no smoking. [facility] Sex Assigned At [birth year] [place] 00:00:00 [facility]00 [facility] Smoking Status Start Date Stop Date Source Current some day smoker 2019-01-30 00:00:00 [facility] Medications Ordered Filled Start Stop Current Ordering Indication Dosage Frequency Signature Comments Components Source Medication Medication Date Date Medication? Clinician (SIG) Name Name mable Yes [id number] 1{tbl} Take 1 Univers en-codeine 7-10 tablet by ity of (TYLENOL-CO 00:00: mouth [place] DEINE #3) 00 every 4 Medical 300-30 mg (four) Branch tablet hours as needed for Pain (scale 4-6) or Pain (scale 7-10). acetaminoph Yes [id number] 1{tbl} Take 1 Univers en-codeine 7-10 tablet by ity of (TYLENOL-CO 00:00: mouth [place] DEINE #3) 00 every 4 Medical 300-30 mg (four) Branch tablet hours as needed for Pain (scale 4-6) or Pain (scale 7-10). acetaminoph Yes [id number] 1{tbl} Take 1 Univers en-codeine 7-10 tablet by ity of (TYLENOL-CO 00:00: mouth [place] DEINE #3) 00 every 4 Medical 300-30 mg (four) Branch tablet hours as needed for Pain (scale 4-6) or Pain (scale 7-10). acetaminoph Yes [id number] 1{tbl} Take 1 Univers en-codeine 7-10 tablet by ity of (TYLENOL-CO 00:00: mouth [place] DEINE #3) 00 every 4 Medical 300-30 mg (four) Branch tablet hours as needed for Pain (scale 4-6) or Pain (scale 7-10). acetaminoph Yes [id number] 1{tbl} Take 1 Univers en-codeine 7-10 tablet [...] Sprays in ity of ALLERGY 14:47: each [place] RELIEF) 50 32 nostril Medica l mcg/actuati daily. Branch on nasal spray tiotropium Yes 18ug Inhale 18 Un lauren (SPIRIVA 6-23 mcg daily. ity o f WITH 14:47: [place] HANDIHALER) 32 Medical 18 mcg Branch inhalation [...] 125 mm[Hg] [facility] pressure [facility] [place] Diastolic blood 2019-03-13 19:06:00 79 mm[Hg] [facility] Heart rate 2019-03-13 19:06:00 106 /min [facility] Respiratory rate 2019-03-13 19:06:00 18 /min Univ [facility] [place] [facility] Body height 2019-03-13 19:06:00 180.3 cm [facility] [place] [facility] Body weight 2019-03-13 19:06:00 90.719 kg [facility] [place] [facility] BMI 2019-03-13 19:06:00 27.89 kg/m2 [facility] [place] [facility] Systolic blood 2019-03-13 19:06:00 125 mm[Hg] Univer sity of pressure [place] [facility] Diastolic blood 2019-03-13 19:06:00 79 mm[Hg] Unive rsity of [facility] Heart rate 2019-03-13 19:06:00 106 /min [facility] [place] [facility] Respiratory rate 2019-03-13 19:06:00 18 /min Univ [facility] [place] [facility] [place] Body height 2019-03-13 19:06:00 180.3 cm [facility] [place] [facility] [place] Body weight 2019-03-13 19:06:00 90.719 kg [facility] [place] [facility] BMI 2019-03-13 19:06:00 27.89 kg/m2 [facility] [place] [facility] Procedures Procedure Date / Time Performed Performing Clinician Sourc e XR ANKLE <3 VW LEFT 2019-03-13 19:17:48 [facility] Encounters Start End Encounter Admission Attending Care Care Encounter Source Date/Time Date/Time Type Type Clinicians Facility Department ID 2019-03-29 2019-03-29 Telephone [facility] [id number] Univers 00:00:00 00:00:00 Yan [facility] [id number] it y of Surgical [id number] Dereck as Specialti [id number] Ar dical es [address] [place] 2019-03-29 2019-03-29 Telephone CARTER [facility] [id number] 00:00:00 00:00:00 Yan [employer] [id number] Surgical [id number] Specialti [id number] es [address] [place] 2019-03-13 2019-03-13 [facility] CARTER Serna [id number] Univers 14:17:47 23:59:00 Encounter [facility] [id number] ity of Surgical [id number] Dereck as Specialti [id number] Ar dical es [facility] 2019-03-13 2019-03-13 [facility] [id number] 14:17:47 23:59:00 Encounter [facility] [id number] Surgical [id number] Specialti [id number] es [address] [place] 2019-03-13 2019-03-13 Office [facility] [id number] [facility] 14:01:05 14:50:54 Visit [facility] [id number] it y of Surgical [id number] Dereck as Specialti [id number] Ar dical es 198 [facility] 2019-03-13 2019-03-13 Office [facility] [id number] 14:01:05 14:50:54 Visit Kevin [facility] [id number] Surgical [id number] Specialti [id number] es [address] [place] Results Test Description Test Time Test Comments Results Result Comments Source SARS-COV2/RT-PCR ([facility]) 2020-01-09 07:59:00 Test Item Value Reference Range Interpretation Comme nts SARS-COV2/RT-PCR (test code = 2037610) Not Detected Not Detected, N egative SARS-COV-2 PERFORMING LAB ([facility] = [facility] Negative results do not preclude SARS-CoV-2 infection [...] of the Act.Fact Sheet for Healthcare Pro viders:https://www.[employer]/Documents/Xpert%20Xpress%20SARS%20CoV-2/Fact%20Sh eets/3023802%55FHFG-EXG-4%20HEALTHCARE%20PROVIDERS%20FACT%20SHEET.pdfFact Sheet for Healthcare Patients:https://www.[employer]/Documents/Xpert%20Xpress%20SARS%20CoV-2/Fact%20Sheets/3023801%20SARS-COV -2%20PATIENT%20FACT%20SHEET.pdfPerforming Laboratory:[facility], [place] [address]YP ANKLE <3 VW [id number] 19:42:43Good signs of callus formation there has been a slight shift in the mortise but it is set at this point.[facility]
[2022-06-04] MEDS ORDERED: TETANUS & DIPHTHERIA TOX,ADULT 0.5 ML VIAL ONE (11:56)
[2022-06-04] MEDS ORDERED: MORPHINE 4 MG/ML SYR ONE (11:56)
[2022-06-04 12:15] LABS: Absolute Lymphocytes (CBC) 1.5 K/uL (0.7-4.9); Hematocrit 39.3 % (39.6-49.0); Lymphocytes % 18.9 % (15.3-44.8); MCV 96.5 fL (80-100); MPV 7.1 fL (7.6-11.3); RBC Red Blood Cell Count 4.07 M/uL (4.33-5.43)
[2022-06-04 12:27] LABS: Potassium 3.8 mmol/L (3.5-5.1)
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
[2022-06-04] MEDS ORDERED: FENTANYL CITR 100 MCG/2 ML ONE ×2 (12:38→15:10)
[2022-06-04] MEDS ORDERED: LIDOCAINE 1% MPF 30 ML VIAL ONE ×2 (13:14→14:24)
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
--- NOTE | 2022-06-04 13:24 | RAD REPORT ---
[facility] CLINICAL HISTORY: Chest pain COMPARISON: May 24, 2022 FINDINGS: Multiple left rib fractures. Some are markedly displaced. Small to moderate left pneumothorax. Left lateral chest wall subcutaneous emphysema. No significant pulmonary contusion is seen. Heart is normal size
--- NOTE | 2022-06-04 13:27 | RAD REPORT ---
EXAM DESCRIPTION: RAD -Hand Left 3 View - 06/04/2022 12:16 pm CLINICAL HISTORY: Left hand pain status post injury FINDINGS: A small bony density lies along the dorsal aspect of the wrist. It probably is not signifi cant. However, an acute avulsion fracture can have a similar appearance and should be correlated clin ically. Otherwise, no fracture or dislocation
[2022-06-04 14:16] LABS: SARS-CoV-2 Antigen Rapid Res Negative (Negative)
[2022-06-04] MEDS ORDERED: NA CHLORIDE 0.9% 1,000 ML ONE ×2 (14:22→16:02)
[2022-06-04] MEDS: NA CHLORIDE 0.9% 1,000 ML IV SCH ×2 (14:46→18:40)
--- NOTE | 2022-06-04 14:55 | RAD REPORT ---
EXAM DESCRIPTION: [facility] Single View06/04/2022 1:54 pm CLINICAL HISTORY: Device placement chest tube placement IMPRESSION: Left chest tube has been placed with its tip overlying the mid left hemithorax. Pneumothorax has decreased in size and is small
--- NOTE | 2022-06-04 14:56 | RAD REPORT ---
EXAM DESCRIPTION: RAD - Knee Right 3 View - 06/04/2022 1:54 pm CLINICAL HISTORY: Right knee pain status post injury FINDINGS: No fracture or dislocation is seen. Increased density consistent with hematoma medial upper knee
[2022-06-04] MEDS: IPRATROPIUM BROM 0.5MG/2.5ML NEB SCH ×2 (16:00→20:30)
[2022-06-04] MEDS ORDERED: D50W 25 GM/50 ML SYRINGE IV PRN (16:07)
[2022-06-04] MEDS ORDERED: GLUCAGON 1 MG/VIAL IM PRN (16:07)
[2022-06-04] MEDS: INSULIN -REGULAR HUMAN 50 UNIT/0.5 ML ML SQ SCH ×2 (16:30→21:00)
[2022-06-04] MEDS ORDERED: D10W 125 ML IV PRN (16:32)
[2022-06-04] MEDS ORDERED: ONDANSETRON 4 MG/2 ML VIAL IV PRN (17:57)
[2022-06-04] MEDS ORDERED: CEFTRIAXONE 1,000 MG in NA CHLORIDE 0.9% 50 ML IVPB SCH ×6 (18:00)
[2022-06-04] MEDS: METHYLPREDNISOLONE 40 MG INJ IV SCH (18:06)
[2022-06-04] MEDS: MORPHINE 2 MG/ML SYR IV PRN ×2 (18:15→19:12)
[2022-06-04] MEDS: FENTANYL 25 MCG/PATCH TD SCH (18:32)
[2022-06-04] MEDS ORDERED: NA CHLORIDE 0.9% 500 ML ONE (18:32)
[2022-06-04] MEDS ORDERED: NA CHLORIDE 0.9% 500 ML IV ONE (18:34)
[2022-06-04] MEDS ORDERED: NA CHLORIDE 0.9% 500 ML IV SCH (19:00)
[2022-06-04] MEDS: ALBUTEROL 2.5 MG/3 ML NEB SOL NEB SCH (20:10)
[2022-06-04] MEDS: ARFORMOTEROL TARTRATE 15 MCG/2 ML VIAL.NEB NEB SCH (20:10)
[2022-06-04] MEDS ORDERED: BUDESONIDE 0.5 MG/2 ML NEB ONE (20:23)
[2022-06-04] MEDS: BUDESONIDE 0.5 MG/2 ML NEB NEB SCH (20:30)
[2022-06-04] MEDS: MONTELUKAST 10 MG TAB PO SCH (21:15)
[2022-06-05] MEDS: METHYLPREDNISOLONE 40 MG INJ IV SCH ×3 (00:31→18:06)
[2022-06-05] MEDS: ALBUTEROL 2.5 MG/3 ML NEB SOL NEB SCH ×4 (01:30→19:50)
[2022-06-05] MEDS: IPRATROPIUM BROM 0.5MG/2.5ML NEB SCH ×6 (01:30→19:50)
[2022-06-05] MEDS: MORPHINE 2 MG/ML SYR IV PRN ×2 (01:31→06:13)
[2022-06-05 05:24] LABS: Absolute Lymphocytes (CBC) 0.4 K/uL (0.7-4.9); Hematocrit 35.1 % (39.6-49.0); Lymphocytes % 4.7 % (15.3-44.8); MCV 97.9 fL (80-100); MPV 7.1 fL (7.6-11.3); RBC Red Blood Cell Count 3.58 M/uL (4.33-5.43)
[2022-06-05 05:43] LABS: Magnesium 1.5 mg/dL (1.8-2.4); Potassium 3.7 mmol/L (3.5-5.1)
[2022-06-05] MEDS: ARFORMOTEROL TARTRATE 15 MCG/2 ML VIAL.NEB NEB SCH ×2 (06:30→19:50)
[2022-06-05] MEDS: BUDESONIDE 0.5 MG/2 ML NEB NEB SCH ×2 (06:30→19:50)
[2022-06-05] MEDS ORDERED: BUDESONIDE 0.5 MG/2 ML NEB ONE (06:44)
[2022-06-05] MEDS: NA CHLORIDE 0.9% 1,000 ML IV SCH ×3 (07:08→15:44)
[2022-06-05] MEDS: INSULIN -REGULAR HUMAN 50 UNIT/0.5 ML ML SQ SCH ×4 (07:30→20:40)
[2022-06-05] MEDS: TAMSULOSIN 0.4 MG SR CAP PO SCH ×2 (08:29→09:00)
[2022-06-05] MEDS: PARoxetine HCL 10 MG TAB PO SCH ×2 (08:30→09:00)
--- NOTE | 2022-06-05 08:47 | RAD REPORT ---
EXAM DESCRIPTION: RAD - Chest Single View - 06/05/2022 6:25 am CLINICAL HISTORY: pneumothorax s/p chest tube placement Chest pain. COMPARISON: Chest Single View dated 06/04/2022; Chest Single View dated 06/04/2022; Chest Single Vie w dated 05/24/2022; Chest Single View dated 03/21/2022 FINDINGS: Portable technique limits examination quality. Small bore left-sided chest tube is in place. Multiple left-sided rib fractures noted. Small pneumoth orax persists on the left, essentially unchanged. The right lung is grossly clear. The heart is casimiro l in size.
[2022-06-05] MEDS: LIDOCAINE VISCOUS 2% SOLN 15 ML UDC PO SCH ×2 (09:00→20:39)
[2022-06-05] MEDS ORDERED: PANTOPRAZOLE 40 MG INJ IVP SCH (09:00)
[2022-06-05] MEDS: SUCRALFATE 1GM/10ML UCUP FT SCH ×4 (09:00→20:39)
[2022-06-05] MEDS: HYDROMORPHONE HCL 2 MG/ML inj IV PRN ×4 (09:33→23:20)
[2022-06-05] MEDS ORDERED: METOPROLOL TAR 25 MG TAB PO ONE (10:15)
[2022-06-05] MEDS: CEFTRIAXONE 1,000 MG in NA CHLORIDE 0.9% 50 ML IVPB SCH ×2 (10:23→20:40)
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
[2022-06-05] MEDS: ENOXAPARIN 40 MG/0.4 ML SQ SCH (20:38)
[2022-06-05] MEDS: MONTELUKAST 10 MG TAB PO SCH (20:39)
[2022-06-05] MEDS: METOPROLOL TAR 25 MG TAB PO SCH (20:39)
[2022-06-05] MEDS: PANTOPRAZOLE 40 MG INJ IVP SCH (20:40)
[2022-06-05] MEDS: GLUCERNA SHAKE 237 ML CAN PO SCH ×2 (20:41→21:00)
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
[2022-06-05] MEDS ORDERED: FUROSEMIDE 20 MG/ 2ML VIAL IV ONE (23:40)
[2022-06-06] MEDS: METHYLPREDNISOLONE 40 MG INJ IV SCH ×3 (00:09→16:37)
[2022-06-06] MEDS: IPRATROPIUM BROM 0.5MG/2.5ML NEB SCH ×6 (01:40→19:55)
[2022-06-06] MEDS: ALBUTEROL 2.5 MG/3 ML NEB SOL NEB SCH ×4 (01:40→19:55)
[2022-06-06] MEDS: NA CHLORIDE 0.9% 1,000 ML IV SCH (03:58)
[2022-06-06 05:25] LABS: Absolute Lymphocytes (CBC) 0.6 K/uL (0.7-4.9); Hematocrit 29.9 % (39.6-49.0); Lymphocytes % 3.6 % (15.3-44.8); MCV 98.1 fL (80-100); MPV 7.4 fL (7.6-11.3); RBC Red Blood Cell Count 3.05 M/uL (4.33-5.43)
[2022-06-06 05:33] LABS: Magnesium 1.8 mg/dL (1.8-2.4); Potassium 3.9 mmol/L (3.5-5.1)
[2022-06-06] MEDS: HYDROMORPHONE HCL 2 MG/ML inj IV PRN ×3 (05:58→20:35)
[2022-06-06] MEDS ORDERED: POTASSIUM CL SA 10 MEQ TAB PO ONE ×2 (07:13→09:43)
[2022-06-06] MEDS ORDERED: FUROSEMIDE 20 MG/ 2ML VIAL IV ONE (07:13)
[2022-06-06] MEDS: INSULIN -REGULAR HUMAN 50 UNIT/0.5 ML ML SQ SCH ×4 (07:30→20:33)
--- NOTE | 2022-06-06 08:09 | RAD REPORT ---
EXAM DESCRIPTION: RAD - Chest Single View - 06/06/2022 7:25 am CLINICAL HISTORY: chest tube COMPARISON: Portable 05/2020, portable 05/2019 TECHNIQUE: AP portable chest image was obtained 06/06/2022 7:25 am . FINDINGS: Small bore chest tube remains in place in the lateral mid left lung field. No measurable p neumothorax identifiable. Subcutaneous emphysema remains in the lateral lower left chest region. No new or progressive lung parenchymal process. Heart and vasculature are normal. No new or enlarging pleural fluid collection. Multiple left-sided rib fractures are again noted. IMPRESSION: No measurable pneumothorax seen on today's study. Left-sided chest tube remains in place.
[2022-06-06] MEDS: BUDESONIDE 0.5 MG/2 ML NEB NEB SCH ×2 (08:30→19:55)
[2022-06-06] MEDS: ARFORMOTEROL TARTRATE 15 MCG/2 ML VIAL.NEB NEB SCH ×2 (08:30→19:55)
[2022-06-06] MEDS: GLUCERNA SHAKE 237 ML CAN PO SCH ×3 (09:00→20:34)
[2022-06-06] MEDS: MAGNES/ALUMIN/SIMET 30ML UCUP PO SCH (09:44)
[2022-06-06] MEDS: SUCRALFATE 1GM/10ML UCUP FT SCH ×4 (09:45→20:33)
[2022-06-06] MEDS: METOPROLOL TAR 25 MG TAB PO SCH ×2 (09:46→20:32)
[2022-06-06] MEDS: TAMSULOSIN 0.4 MG SR CAP PO SCH (09:46)
[2022-06-06] MEDS: PARoxetine HCL 10 MG TAB PO SCH (09:46)
[2022-06-06] MEDS: PANTOPRAZOLE 40 MG INJ IVP SCH ×2 (09:47→20:31)
[2022-06-06] MEDS: CEFTRIAXONE 1,000 MG in NA CHLORIDE 0.9% 50 ML IVPB SCH ×2 (09:47→20:30)
[2022-06-06] MEDS: LIDOCAINE VISCOUS 2% SOLN 15 ML UDC PO SCH ×2 (09:48→20:33)
[2022-06-06 10:02] LABS: Blood Morphology Comment NOT SEEN (NOT SEEN); Platelet Estimate INCR
--- NOTE | 2022-06-06 12:14 | P.PN ---
Subjective Date of Service: 06/06/22 Chief Complaint: Status post pneumothorax Subjective: Improving (Improving still complaining of chest pain) Review of Systems General: Weakness Respiratory: Shortness of Breath, Pleuritic Pain Physical Examination - Vital Signs Temperature: 98.7 F Blood Pressure: 116/80 Pulse: 100 Respirations: 19 Pulse Ox (%): 94 - Physical Exam General: Alert, Oriented x3, Mild distress Respiratory: Clear to auscultation bilaterally, Diminished Cardiovascular: No edema, Normal S1 S2 Assessment And Plan - Current Problems (Diagnosis) (1) Pneumothorax Current Visit: Yes Status: Acute Plan: Patient is is s/p traumatic pneumothorax there is no air leak evidence of a flail chest oxygenation has improved chemistries reviewed mildly elevated white count patient is on steroids can foreign exchange 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
[2022-06-06] MEDS ORDERED: IPRATROPIUM BROM 0.5MG/2.5ML NEB SCH (14:00)
[2022-06-06] MEDS ORDERED: MAGNESIUM SULFATE 1 gm IVPB 1 GM/100 ML BAG IV ONE (14:52)
--- NOTE | 2022-06-06 15:35 | EKG ---
Test Date: 2022-06-04 Test Time: 13:52:00 Flying Ii Instructor: YVON MEASUREMENT RESULTS: Intervals: Rate: 92 OR: 192 QRSD: 70 QT: 350 QTc: 432 Sterling: P: 82 OR: 192 QRS: -66 T: 90 INTERPRETIVE STATEMENTS: Normal sinus rhythm Left axis deviation Pulmonary disease pattern Septal infarct, age undetermined Abnormal ECG Compared to ECG 05/24/2022 02:29:14 Left-axis deviation now present Myocardial infarct finding now present Sinus tachycardia no longer present Right superior axis no longer present Electronically Signed On 06-06-22 15:30:33 INTELLIGENCE ENGINEER by Demetrio Aguilar
[2022-06-06] MEDS ORDERED: BUDESONIDE 0.5 MG/2 ML NEB ONE (20:15)
[2022-06-06] MEDS: MONTELUKAST 10 MG TAB PO SCH (20:32)
[2022-06-06] MEDS: ENOXAPARIN 40 MG/0.4 ML SQ SCH (20:32)
[2022-06-06] MEDS: ALPRAZOLAM 0.5 MG TABLET PO SCH (20:32)
--- NOTE | 2022-06-06 22:48 | PN ---
Date of Progress Note: 06/06/2022 Subjective: Patient was seen this morning for followup. No new complaints or problems reported by misty restrepo except generalized pain. He has some cough and chest congestion. Overnight, he required a hi gher level of oxygen replacement therapy and when I saw him this morning, he was on high-flow oxygen. He is maintaining adequate oxygenation. Objective: Vital Signs: Reviewed. HEENT: Unremarkable. Lungs: Clear to auscultation except expiratory wheezing noted, not in any respiratory distress. Heart: Sounds normal. Abdomen: Soft. Bowel sounds normal. No guarding, rigidity, tenderness, or distention. Extremities: No leg edema. Laboratory Data: White count 17.6, hemoglobin 10, and platelets 458. Sodium 140, potassium 3.9, chl oride 109, bicarb 26, BUN 17, creatinine 0.67, glucose 145, and magnesium 1.8. Impression: 1.Left-sided multiple rib fractures. 2.Pneumothorax. 3.Hemothorax. 4.Anemia, unspecified. 5.Chronic obstructive pulmonary disease. 6.Anxiety. 7.Insomnia. Plan: We will go ahead and continue current medications. The patient did not sleep, but may be 15 t o 20 minutes last night and we will try Ativan per order tonight. We will repeat blood work tomorrow morning. Chest x-ray was done today, results reviewed. The patient received 1 dose of Lasix last n ight and I have ordered another Lasix and potassium dose this morning. We will discontinue IV fluid and I will see him tomorrow for followup. We will continue to follow with bear keeper and general surgeon. The patient was started on Lovenox for DVT prophylaxis and we jenny l continue that. INDRA/MODL Voice ID: [id number] Report ID: [id number]
[2022-06-07] MEDS: METHYLPREDNISOLONE 40 MG INJ IV SCH ×3 (01:00→16:40)
[2022-06-07] MEDS: ALBUTEROL 2.5 MG/3 ML NEB SOL NEB SCH ×4 (01:55→19:15)
[2022-06-07] MEDS: IPRATROPIUM BROM 0.5MG/2.5ML NEB SCH ×4 (01:55→19:15)
[2022-06-07] MEDS: HYDROMORPHONE HCL 2 MG/ML inj IV PRN ×3 (03:20→18:47)
[2022-06-07 04:49] LABS: Hematocrit 28.6 % (39.6-49.0); Lymphocytes % 6.7 % (15.3-44.8); MCV 96.9 fL (80-100); MPV 7.2 fL (7.6-11.3); RBC Red Blood Cell Count 2.95 M/uL (4.33-5.43)
[2022-06-07 04:58] LABS: Magnesium 2.3 mg/dL (1.8-2.4); Potassium 4.3 mmol/L (3.5-5.1)
[2022-06-07 06:23] VITALS: BMI 24.0
[2022-06-07] MEDS: INSULIN -REGULAR HUMAN 50 UNIT/0.5 ML ML SQ SCH ×4 (07:30→21:00)
--- NOTE | 2022-06-07 07:55 | RAD REPORT ---
EXAM DESCRIPTION: Jacinto Single View06/07/2022 5:34 am CLINICAL HISTORY: Chest pain COMPARISON: June 06, 2022 FINDINGS: Left chest tube remains in place. Multiple left rib fractures. Significant left pneumothorax is not visualized. Subcutaneous emphysema diminished. Mild bibasilar lung opacities are unchanged.
[2022-06-07] MEDS: ARFORMOTEROL TARTRATE 15 MCG/2 ML VIAL.NEB NEB SCH ×2 (08:09→19:15)
[2022-06-07] MEDS: CEFTRIAXONE 1,000 MG in NA CHLORIDE 0.9% 50 ML IVPB SCH ×2 (08:38→21:07)
[2022-06-07] MEDS: PARoxetine HCL 10 MG TAB PO SCH (08:40)
[2022-06-07] MEDS: PANTOPRAZOLE 40 MG INJ IVP SCH ×2 (08:40→21:08)
[2022-06-07] MEDS: FENTANYL 25 MCG/PATCH TD SCH (08:42)
[2022-06-07] MEDS: SUCRALFATE 1GM/10ML UCUP FT SCH ×4 (08:42→21:07)
[2022-06-07] MEDS: METOPROLOL TAR 25 MG TAB PO SCH ×2 (08:43→21:11)
[2022-06-07] MEDS: TAMSULOSIN 0.4 MG SR CAP PO SCH (08:44)
[2022-06-07] MEDS: MAGNES/ALUMIN/SIMET 30ML UCUP PO SCH (08:44)
[2022-06-07] MEDS: LIDOCAINE VISCOUS 2% SOLN 15 ML UDC PO SCH ×2 (08:44→21:07)
[2022-06-07] MEDS: GLUCERNA SHAKE 237 ML CAN PO SCH ×4 (09:00→21:00)
[2022-06-07] MEDS: BUDESONIDE 0.5 MG/2 ML NEB NEB SCH ×2 (13:14→19:15)
[2022-06-07 18:11] LABS: Specific Gravity 1.022 (1.005-1.030); Urine Bilirubin NEGATIVE (Negative); Urine Blood Negative (Negative); Urine Clarity Clear (Clear); Urine Color Yellow (Yellow); Urine Crystals Unidentified Few /HPF (None Seen); Urine Glucose NEGATIVE (Negative); Urine Mucus Slight /HPF (None Seen); Urine Protein TRACE (Negative); Urine RBC <5 /HPF (None Seen); Urine Urobilinogen Normal (Normal)
--- NOTE | 2022-06-07 20:45 | PN ---
Date of Progress Note: 06/07/2022 Subjective: The patient was seen this morning for followup. No new complaints or problems reported by the patient. He was complaining of pain in his lower esophagus that seems to be bothering him mor e than his ribcage pain when he was talking to me this morning. He has very poor appetite and we did have a long discussion about importance of nutrition. Objective: Vital Signs: Reviewed. HEENT: Unremarkable. Lungs: Clear to auscultation. Heart: Sounds normal. The patient not using any accessory muscles of respiration. Abdomen: Soft. Bowel sounds normal. No guarding, rigidity, tenderness, distention. Extremities: No leg edema. Laboratory Data: White count 14.5, hemoglobin 9.9, platelets 442. Sodium 142, potassium 4.3, chlori de 107 bicarb 29, BUN 27, creatinine 0.67, glucose 128. Impression: 1.Left-sided multiple rib fractures. 2.Esophagitis. 3.Chronic obstructive pulmonary disease. 4.Acute respiratory failure with hypoxia. 5.Hemothorax, left side. 6.Pneumothorax, left side. Plan: We will go ahead and continue to follow up with Dr. Camarillo and Dr. Quinonez. We will continu e current steroid, antibiotic, oxygen replacement therapy. Continue current pain medication. The pa luigi was counseled and encouraged to eat as much as he can and use nutritional support. We will see him tomorrow for followup. Physical Therapy and Occupational Thera py to work with the patient. INDRA/MODL Voice ID: [id number] Report ID: [id number]
[2022-06-07] MEDS: MONTELUKAST 10 MG TAB PO SCH (21:07)
[2022-06-07] MEDS: ENOXAPARIN 40 MG/0.4 ML SQ SCH (21:08)
[2022-06-07] MEDS: ALPRAZOLAM 0.5 MG TABLET PO SCH (21:08)
[2022-06-08] MEDS: METHYLPREDNISOLONE 40 MG INJ IV SCH ×3 (00:14→21:04)
[2022-06-08] MEDS: HYDROMORPHONE HCL 2 MG/ML inj IV PRN ×2 (00:14→03:37)
[2022-06-08] MEDS: IPRATROPIUM BROM 0.5MG/2.5ML NEB SCH ×5 (01:10→21:15)
[2022-06-08] MEDS: ALBUTEROL 2.5 MG/3 ML NEB SOL NEB SCH ×5 (01:10→20:00)
[2022-06-08 05:09] LABS: Absolute Lymphocytes (CBC) 0.5 K/uL (0.7-4.9); Hematocrit 27.6 % (39.6-49.0); Lymphocytes % 3.9 % (15.3-44.8); MCV 98.6 fL (80-100); MPV 7.6 fL (7.6-11.3)
[2022-06-08 05:43] LABS: Magnesium 2.4 mg/dL (1.8-2.4); Potassium 4.8 mmol/L (3.5-5.1)
[2022-06-08] MEDS: BUDESONIDE 0.5 MG/2 ML NEB NEB SCH ×3 (06:00→21:15)
[2022-06-08] MEDS: ARFORMOTEROL TARTRATE 15 MCG/2 ML VIAL.NEB NEB SCH ×3 (06:00→21:15)
[2022-06-08] MEDS: INSULIN -REGULAR HUMAN 50 UNIT/0.5 ML ML SQ SCH ×4 (07:30→21:00)
[2022-06-08] MEDS: SUCRALFATE 1GM/10ML UCUP FT SCH ×4 (08:22→21:03)
[2022-06-08] MEDS: MAGNES/ALUMIN/SIMET 30ML UCUP PO SCH (08:22)
[2022-06-08] MEDS: TAMSULOSIN 0.4 MG SR CAP PO SCH (08:23)
[2022-06-08] MEDS: LIDOCAINE VISCOUS 2% SOLN 15 ML UDC PO SCH ×2 (08:23→21:00)
[2022-06-08] MEDS: PARoxetine HCL 10 MG TAB PO SCH (08:23)
[2022-06-08] MEDS: PANTOPRAZOLE 40 MG INJ IVP SCH ×2 (08:24→21:00)
[2022-06-08] MEDS: CEFTRIAXONE 1,000 MG in NA CHLORIDE 0.9% 50 ML IVPB SCH ×2 (08:24→21:05)
[2022-06-08] MEDS: METOPROLOL TAR 25 MG TAB PO SCH (08:24)
--- NOTE | 2022-06-08 08:26 | RAD REPORT ---
EXAM DESCRIPTION: RAD - Chest Single View - 06/08/2022 5:30 am CLINICAL HISTORY: chest tube Chest pain. COMPARISON: Chest Single View dated 06/07/2022; Chest Single View dated 06/06/2022; Chest Single Vie w dated 06/05/2022; Chest Single View dated 06/04/2022 FINDINGS: Portable technique limits examination quality. Mild bilateral pulmonary opacities are seen, unchanged. The heart is mildly enlarged in size. Multipl e posterior left-sided rib fractures again seen.Small apical pneumothorax persists estimated at 5% of volume of the left lung. A small bore pigtail catheter is in place. IMPRESSION: Small left apical pneumothorax estimated at 5%.
[2022-06-08] MEDS: GLUCERNA SHAKE 237 ML CAN PO SCH ×4 (09:00→21:00)
--- NOTE | 2022-06-08 09:20 | RAD REPORT ---
EXAM DESCRIPTION: RAD - Chest Single View - 06/08/2022 9:01 am CLINICAL HISTORY: 1hr s/p removal for pneumothorax Chest pain. COMPARISON: Chest Single View dated 06/08/2022; Chest Single View dated 06/07/2022; Chest Single Vie w dated 06/06/2022; Chest Single View dated 06/05/2022 FINDINGS: Portable technique limits examination quality. Small left apical pneumothorax is again seen appearing unchanged. Mild bilateral pulmonary opacities are present, unchanged. The heart is normal in size. Multiple mildly displaced left-sided posterior r ib fractures. IMPRESSION: Stable small left apical pneumothorax.
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
[2022-06-08] MEDS ORDERED: METOPROLOL TAR 25 MG TAB PO ONE (11:16)
[2022-06-08] MEDS ORDERED: DIGOXIN 0.25 MG/ML AMP IV ONE (11:17)
[2022-06-08] MEDS: APIXABAN 5 MG TABLET PO SCH ×2 (11:33→21:05)
--- NOTE | 2022-06-08 11:34 | EKG ---
Test Date: 2022-06-08 Test Time: 08:29:44 Surveillance Camera Technician: EC MEASUREMENT RESULTS: Intervals: Rate: 127 MN: QRSD: 88 QT: 302 QTc: 438 Julian: P: MN: QRS: 60 T: 57 INTERPRETIVE STATEMENTS: Atrial fibrillation with rapid ventricular response Nonspecific ST and T wave abnormality, probably digitalis effect Abnormal ECG Compared to ECG 06/04/2022 13:52:00 ST (T wave) deviation now present Sinus rhythm no longer present Left-axis deviation no longer present Myocardial infarct finding no longer present Electronically Signed On 06-08-22 11:34:24 TONSORIAL ARTIST by Jelani Baldwin
--- NOTE | 2022-06-08 17:48 | PN ---
Date of Progress Note: 06/08/2022 Subjective: The patient was seen this morning for followup. He was lying in bed, not in distress. His chest tube was removed today and soon after that he went into atrial fibrillation with rapid vent ricular rate. Hemodynamically, he is stable. Objective: Vital Signs: Reviewed. HEENT: Unremarkable. Lungs: Bilateral good equal air entry. Not using any accessory muscles of respiration. Heart: Sounds normal. Abdomen: Soft. Bowel sounds normal. No guarding, rigidity, tenderness, distention. Extremities: No leg edema. Laboratory Data: White count 13.4, hemoglobin 9.1, platelets 428. Sodium 142, potassium 4.8, chlori de 107, bicarb 29, BUN 40, creatinine 0.68, glucose 148, magnesium 2.4. Impression: 1.Atrial fibrillation with rapid ventricular rate, new onset. 2.Acute respiratory failure with hypoxia. 3.Acute exacerbation of chronic obstructive pulmonary disease. 4.Multiple left-sided rib fractures. Plan: We will go ahead and continue oxygen replacement therapy. We will continue metoprolol, and Dr Aurea Baldwin from Cardiology was consulted, and he increased the dose from 25 mg 2 times a day up to 50 mg 2 times a day. The patient was getting Lovenox for DVT prophylaxis, and I have discontinued that, and we will start him on Eliquis 5 mg 2 times a day. We will continue current antibiotic, which is ceftriaxone. Continue nebulizer treatment. We will continue IV steroid Solu-Medrol 40 mg, but reduc e dose from 3 times a day to 2 times a day. The patient was encouraged to eat his meals and use nutr itional supplement to try to help improve his nutrition and work with Physical Therapy. Depending on his condition now, we will decide if we can transfer him out of ICU to regular room tomorrow or not. INDRA/MODL Voice ID: [id number] Report ID: [id number]
[2022-06-08] MEDS ORDERED: ARFORMOTEROL TARTRATE 15 MCG/2 ML VIAL.NEB ONE (20:40)
[2022-06-08] MEDS ORDERED: BUDESONIDE 0.5 MG/2 ML NEB ONE (20:40)
[2022-06-08] MEDS ORDERED: IPRATROPIUM BROM 0.5MG/2.5ML ONE (20:40)
[2022-06-08] MEDS: ALPRAZOLAM 0.5 MG TABLET PO SCH (21:04)
[2022-06-08] MEDS: METOPROLOL TAR 50 MG TAB PO SCH (21:04)
[2022-06-08] MEDS: MONTELUKAST 10 MG TAB PO SCH (21:05)
[2022-06-09] MEDS: HYDROMORPHONE HCL 2 MG/ML inj IV PRN ×2 (00:22→12:26)
[2022-06-09] MEDS: IPRATROPIUM BROM 0.5MG/2.5ML NEB SCH ×4 (01:55→20:35)
[2022-06-09] MEDS: ALBUTEROL 2.5 MG/3 ML NEB SOL NEB SCH ×2 (02:00→08:00)
[2022-06-09] MEDS: INSULIN -REGULAR HUMAN 50 UNIT/0.5 ML ML SQ SCH ×4 (07:30→20:27)
--- NOTE | 2022-06-09 07:44 | RAD REPORT ---
EXAM DESCRIPTION: Jacinto Single View06/09/2022 6:14 am CLINICAL HISTORY: Chest pain COMPARISON: June 08, 2023 FINDINGS: Small left apical pneumothorax is unchanged Multiple left rib fractures again demonstrated. Mild bilateral pulmonary opacities are unchanged IMPRESSION: Small left apical pneumothorax unchanged
[2022-06-09] MEDS: SUCRALFATE 1GM/10ML UCUP FT SCH ×4 (08:28→19:56)
[2022-06-09] MEDS: APIXABAN 5 MG TABLET PO SCH ×2 (08:28→19:57)
[2022-06-09] MEDS: MAGNES/ALUMIN/SIMET 30ML UCUP PO SCH (08:29)
[2022-06-09] MEDS: TAMSULOSIN 0.4 MG SR CAP PO SCH (08:29)
[2022-06-09] MEDS: PARoxetine HCL 10 MG TAB PO SCH (08:29)
[2022-06-09] MEDS: METOPROLOL TAR 50 MG TAB PO SCH (08:29)
[2022-06-09] MEDS: PANTOPRAZOLE 40 MG INJ IVP SCH ×2 (08:30→19:57)
[2022-06-09] MEDS: METHYLPREDNISOLONE 40 MG INJ IV SCH (08:30)
[2022-06-09] MEDS: CEFTRIAXONE 1,000 MG in NA CHLORIDE 0.9% 50 ML IVPB SCH ×2 (08:30→19:58)
[2022-06-09] MEDS: GLUCERNA SHAKE 237 ML CAN PO SCH ×4 (08:31→20:26)
[2022-06-09] MEDS: LIDOCAINE VISCOUS 2% SOLN 15 ML UDC PO SCH ×2 (08:32→19:59)
[2022-06-09] MEDS ORDERED: predniSONE 20 MG TAB PO SCH (09:00)
[2022-06-09] MEDS: ARFORMOTEROL TARTRATE 15 MCG/2 ML VIAL.NEB NEB SCH ×2 (10:21→20:35)
[2022-06-09] MEDS: BUDESONIDE 0.5 MG/2 ML NEB NEB SCH ×2 (10:21→20:35)
[2022-06-09] MEDS ORDERED: METOPROLOL TARTRATE 5 MG/5 ML INJ IV PRN (13:57)
--- NOTE | 2022-06-09 15:21 | PN ---
Date of Progress Note: 06/09/2022 Subjective: The patient was seen this morning for followup. He was lying in bed, not in distress. His pain from the fracture, as well as esophagitis is better as he reports. He still has a poor appe tite. Overall, he just does not feel good, but pain is improving. Appetite still remains poor. Objective: Vital Signs: Reviewed. HEENT: Unremarkable. Lungs: Bilateral good equal air entry, not in respiratory distress. Some rhonchi noted in lung fiel ds. Heart: Sounds normal. Abdomen: Soft. Bowel sounds normal. No guarding, rigidity, tenderness, distention. Extremities: No leg edema. Laboratory Data: Chest x-ray today, small left apical pneumothorax, unchanged. Impression: 1.Multiple left-sided rib fractures. 2.Acute exacerbation of chronic obstructive pulmonary disease. 3.Acute respiratory failure with hypoxia. 4.Atrial fibrillation. 5.Pneumothorax, traumatic, left side. Plan: We will go ahead and continue current antibiotic which is ceftriaxone. Continue steroid, but we will discontinue IV Solu-Medrol and start oral prednisone 20 mg 2 times a day. Continue oxygen re placement therapy, nebulizer treatment per order, and the patient was encouraged to eat and use nutri tional supplement and participated with the physical therapy. As of today, I have advised him to sta rt spending at least 5-6 hours in the chair during day time so he can spend 1-2 hours around each benitez l time in the chair. Depending on how he does today, our plan is to transfer him out of ICU to [facility] either later today or tomorrow. Continue current DVT prophylaxis. Plan of treatment discuss ed with the patient. For atrial fibrillation, we will continue Eliquis and continue to follow with safety spec. INDRA/MODL Voice ID: [id number] Report ID: [id number]
[2022-06-09] MEDS: SOTALOL HCL 80 MG TAB PO SCH (19:56)
[2022-06-09] MEDS: ALPRAZOLAM 0.5 MG TABLET PO SCH (19:57)
[2022-06-09] MEDS: predniSONE 20 MG TAB PO SCH (19:57)
[2022-06-09] MEDS: MONTELUKAST 10 MG TAB PO SCH (19:57)
[2022-06-10] MEDS: IPRATROPIUM BROM 0.5MG/2.5ML NEB SCH ×4 (00:45→20:15)
[2022-06-10 05:14] LABS: Absolute Lymphocytes (CBC) 1.1 K/uL (0.7-4.9); Hematocrit 27.3 % (39.6-49.0); Lymphocytes % 12.3 % (15.3-44.8); MCV 98.3 fL (80-100); MPV 7.7 fL (7.6-11.3); RBC Red Blood Cell Count 2.78 M/uL (4.33-5.43)
[2022-06-10 05:34] LABS: Potassium 4.2 mmol/L (3.5-5.1)
[2022-06-10] MEDS: LIDOCAINE VISCOUS 2% SOLN 15 ML UDC PO SCH ×2 (07:21→21:09)
[2022-06-10] MEDS: MAGNES/ALUMIN/SIMET 30ML UCUP PO SCH (07:21)
[2022-06-10] MEDS: SUCRALFATE 1GM/10ML UCUP FT SCH ×4 (07:22→21:09)
[2022-06-10] MEDS: SOTALOL HCL 80 MG TAB PO SCH ×2 (07:22→21:13)
[2022-06-10] MEDS: predniSONE 20 MG TAB PO SCH ×2 (07:23→21:14)
[2022-06-10] MEDS: PANTOPRAZOLE 40 MG INJ IVP SCH ×2 (07:23→21:10)
[2022-06-10] MEDS: APIXABAN 5 MG TABLET PO SCH ×2 (07:23→21:13)
[2022-06-10] MEDS: TAMSULOSIN 0.4 MG SR CAP PO SCH (07:23)
[2022-06-10] MEDS: PARoxetine HCL 10 MG TAB PO SCH (07:23)
[2022-06-10] MEDS: CEFTRIAXONE 1,000 MG in NA CHLORIDE 0.9% 50 ML IVPB SCH ×2 (07:24→21:08)
[2022-06-10] MEDS: INSULIN -REGULAR HUMAN 50 UNIT/0.5 ML ML SQ SCH ×4 (07:30→21:00)
[2022-06-10] MEDS: BUDESONIDE 0.5 MG/2 ML NEB NEB SCH ×2 (07:35→20:15)
[2022-06-10] MEDS: ARFORMOTEROL TARTRATE 15 MCG/2 ML VIAL.NEB NEB SCH ×2 (07:35→20:15)
[2022-06-10] MEDS: GLUCERNA SHAKE 237 ML CAN PO SCH ×4 (09:00→21:00)
--- NOTE | 2022-06-10 09:01 | RAD REPORT ---
EXAM DESCRIPTION: Ellent Single View06/10/2022 5:42 am CLINICAL HISTORY: Chest pain COMPARISON: June 09, 2022 FINDINGS: A tiny left apical pneumothorax has decreased in size Multiple left rib fractures. Mild bilateral pulmonary opacities are unchanged.
[2022-06-10] MEDS: FENTANYL 25 MCG/PATCH TD SCH (10:15)
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
--- NOTE | 2022-06-10 19:38 | PN ---
Date of Progress Note: 06/10/2022 Subjective: Seen at bedside, clinically stable. Review of Systems: No shortness of breath. Has chest pain and it is with movements and chest wall movements. No nausea , vomiting, or diarrhea. No dysuria, polyuria, or urinary urgency. All other systems reviewed and t hey are negative. Physical Examination: Vital Signs: Reviewed. Head And Neck: Pupils are equal and reactive to light. Intact eye movements. No JVD. No cervical lymphadenopathy. Neck is supple. Thyroid is not enlarged. Lungs: Decreased breathing sounds with rhonchi bilaterally. No accessory muscle use or muscle retra ction. Heart: Irregularly irregular. No extra sounds. Abdomen: Soft, nontender. Bowel sounds positive. No organomegaly. No masses or hernia. No rigidi ty or rebound. Extremities: No clubbing or cyanosis. Intact pulses. Skin: No rash. Neurologic: Alert, awake. No acute focal deficits appreciated. Investigations: Labs were reviewed. Assessment And Recommendation: 1.Atrial fibrillation. We will start on sotalol. Continue current therapy and using metoprolol IV for rate control and the patient is already on Eliquis for stroke prevention. 2.Chest pain. This is noncardiac due to rib fractures. Continue to monitor. SR/MODL Voice ID: [id number] Report ID: [id number]
[2022-06-10] MEDS: ALPRAZOLAM 0.5 MG TABLET PO SCH (21:13)
[2022-06-10] MEDS: SODIUM CHLORIDE 0.9% 10ML INJ IV PRN (21:13)
[2022-06-10] MEDS: MONTELUKAST 10 MG TAB PO SCH (21:13)
[2022-06-11] MEDS: IPRATROPIUM BROM 0.5MG/2.5ML NEB SCH ×4 (01:35→19:50)
--- NOTE | 2022-06-11 07:16 | RAD REPORT ---
EXAM DESCRIPTION: RAD - Chest Single View - 06/11/2022 5:57 am CLINICAL HISTORY: Rib Fractures COMPARISON: Chest Single View dated 06/10/2022; Chest Single View dated 06/09/2022; Chest Single Vie w dated 06/08/2022; Chest Single View dated 06/08/2022; Thorax Wo Con dated 01/06/2022; Head C Spine Cap W Con dated 06/04/2022 FINDINGS: Lines: None. Lungs: Probable atelectasis in lung bases. Pleural: No appreciable left-sided pneumothorax. Cardiac: Similar size and configuration. Mediastinum: Within normal limits. Bones: Multiple displaced left-sided rib fractures again identified. Other: None IMPRESSION: No appreciable pneumothorax identified. Likely basilar atelectasis.
[2022-06-11] MEDS: INSULIN -REGULAR HUMAN 50 UNIT/0.5 ML ML SQ SCH ×4 (07:30→21:00)
[2022-06-11] MEDS ORDERED: CEFTRIAXONE 1000 MG/VIAL ONE (07:48)
[2022-06-11] MEDS: BUDESONIDE 0.5 MG/2 ML NEB NEB SCH ×2 (08:30→19:50)
[2022-06-11] MEDS: ARFORMOTEROL TARTRATE 15 MCG/2 ML VIAL.NEB NEB SCH ×2 (08:30→19:50)
[2022-06-11] MEDS: GLUCERNA SHAKE 237 ML CAN PO SCH ×2 (09:00→13:00)
[2022-06-11] MEDS: LIDOCAINE VISCOUS 2% SOLN 15 ML UDC PO SCH ×2 (09:33→21:00)
[2022-06-11] MEDS: APIXABAN 5 MG TABLET PO SCH ×2 (09:34→22:24)
[2022-06-11] MEDS: PARoxetine HCL 10 MG TAB PO SCH (09:34)
[2022-06-11] MEDS: PANTOPRAZOLE 40 MG INJ IVP SCH ×2 (09:34→22:25)
[2022-06-11] MEDS: SOTALOL HCL 80 MG TAB PO SCH ×2 (09:35→22:24)
[2022-06-11] MEDS: MAGNES/ALUMIN/SIMET 30ML UCUP PO SCH (09:35)
[2022-06-11] MEDS: predniSONE 20 MG TAB PO SCH ×2 (09:38→22:24)
[2022-06-11] MEDS ORDERED: NA CHLORIDE 0.9% 50 ML ONE (09:50)
[2022-06-11] MEDS: CEFTRIAXONE 1,000 MG in NA CHLORIDE 0.9% 50 ML IVPB SCH ×2 (09:56→22:24)
[2022-06-11] MEDS: SUCRALFATE 1GM/10ML UCUP FT SCH ×4 (09:59→22:26)
[2022-06-11] MEDS: TAMSULOSIN 0.4 MG SR CAP PO SCH (10:03)
--- NOTE | 2022-06-11 11:39 | PN ---
Date of Progress Note: 06/10/2022 Subjective: The patient was seen this morning for followup. He was in bed in ICU, lying in bed, not in distress. No new complaints or problems reported by him. Overall, his pain from the rib fractur e as well as from esophagitis is better. His appetite continues to remain poor. He did have bowel m ovement yesterday as he reports. Objective: Vital Signs: Reviewed. HEENT: Unremarkable. Lungs: Bilateral good equal air entry. No wheezing. No rales. Not using any accessory muscles of respiration. Heart: Sounds normal. Abdomen: Soft. Bowel sounds normal. No guarding, rigidity, tenderness, distention. Extremities: No leg edema. Right lower extremity has hematoma over the lower anterior part of the l eg just above the ankle. No open wound. No discharge. No bleeding. Laboratory Data: White count 9, hemoglobin 9.5, platelets 388. Sodium 142, potassium 4.2, chloride 105, bicarb 33, BUN 32, creatinine 0.65, glucose 151, magnesium 2. Impression: 1.Multiple left-sided rib fractures. 2.Esophagitis. 3.Left pneumothorax, traumatic. 4.Acute exacerbation of chronic obstructive pulmonary disease. 5.Acute respiratory failure with hypoxia. 6.Anemia. Plan: The patient is medically stable for transfer from ICU to regular medical floor and we will tra nsfer him with all current orders. Please see transfer order for details. Meanwhile, we will contin ue oxygen replacement therapy, antibiotic, oral steroid, nebulizer treatment per order. Continue cur rent anticoagulation therapy and metoprolol. Physical Therapy and Occupational Therapy to continue to work with the patient and I will see him tomorrow for followup. INDRA/MODL Voice ID: [id number] Report ID: [id number]
--- NOTE | 2022-06-11 13:57 | PN ---
Date of Progress Note: 06/11/2022 Subjective: Seen by bedside, doing well. Heart rate is controlled. No distress. Review of Systems: Has some chest soreness, especially with movements. No nausea, vomiting, diarrhea. No dysuria, poly uria, or urinary urgency. All other systems reviewed and negative. Physical Examination: Vital Signs: Reviewed. Head and Neck: Pupils are equal, reactive to light. Intact eye movements. No JVD. No cervical lym phadenopathy. Neck is supple. Thyroid is not enlarged. Lungs: Rhonchi bilaterally. No accessory muscle use or muscle retraction. Heart: Irregularly irregular. No extra sounds. Abdomen: Soft, nontender. Bowel sounds positive. No organomegaly. No masses or hernia. No rigidi ty or rebound. Extremities: No clubbing or cyanosis. Intact pulses. Skin: No rash. Neurologic: Alert, awake, oriented x3. No acute focal deficits appreciated. Investigations: Labs reviewed. Assessment And Recommendations: Atrial fibrillation with rapid ventricular response. Rate is more c ontrolled now. Continue sotalol and Eliquis and Cardiology will sign off and to follow up as an outpatient 4 weeks post discharge and we will be available for any further questions. SR/MODL Voice ID: [id number] Report ID: [id number]
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
[2022-06-11] MEDS: ENSURE CLEAR 200 ML CAN PO SCH (22:22)
[2022-06-11] MEDS: ALPRAZOLAM 0.5 MG TABLET PO SCH (22:23)
[2022-06-11] MEDS: MONTELUKAST 10 MG TAB PO SCH (22:24)
[2022-06-12] MEDS: IPRATROPIUM BROM 0.5MG/2.5ML NEB SCH ×4 (01:05→19:20)
--- NOTE | 2022-06-12 01:48 | PN ---
Date of Progress Note: 06/11/2022 Subjective: The patient was seen this morning for followup. No new complaints or problems reported by the patient. He was on the medical floor, sitting in the chair, his was with him at bedside. No new complaints problems reported, except the patient says that his right foot and ankle are not moving like his left foot and has some pain with the movement. Objective: Vital Signs: Reviewed. HEENT: not using any accessory muscles of respiration. Presence of some scattered rhonch i in lower lung contreras. Heart: Sounds normal. Abdomen: Soft. Bowel sounds normal. No guarding, rigidity, tenderness, distention. Extremities: No leg edema. Right lower leg has hematoma over anterior aspect unchanged, but right a nkle and foot movement is somewhat diminished compared to the left side. Impression: 1.Multiple left-sided rib fractures. 2.Left-sided pneumothorax, traumatic. 3.Esophagitis. 4.Atrial fibrillation. 5.Right ankle pain. 6.Acute exacerbation of chronic obstructive pulmonary disease. 7.Acute respiratory failure with hypoxia. Plan: We will go ahead and continue current oxygen, steroid, nebulizer treatment. We will continue current metoprolol and Eliquis. We will get an x-ray of the right ankle and right foot today and the patient was encouraged to eat his meals and use nutritional supplement per order. I will see him shyam for followup. INDRA/MODL Voice ID: [id number] Report ID: [id number]
[2022-06-12] MEDS: BUDESONIDE 0.5 MG/2 ML NEB NEB SCH ×2 (06:10→19:20)
[2022-06-12] MEDS: ARFORMOTEROL TARTRATE 15 MCG/2 ML VIAL.NEB NEB SCH ×2 (06:10→19:20)
[2022-06-12 06:31] LABS: Absolute Lymphocytes (CBC) 1.2 K/uL (0.7-4.9); Hematocrit 28.5 % (39.6-49.0); Lymphocytes % 9.7 % (15.3-44.8); MCV 99.9 fL (80-100); RBC Red Blood Cell Count 2.85 M/uL (4.33-5.43)
[2022-06-12 06:46] LABS: Magnesium 1.9 mg/dL (1.8-2.4)
[2022-06-12] MEDS: INSULIN -REGULAR HUMAN 50 UNIT/0.5 ML ML SQ SCH ×4 (07:30→21:00)
[2022-06-12] MEDS: SUCRALFATE 1GM/10ML UCUP FT SCH ×4 (08:55→20:59)
[2022-06-12] MEDS: CEFTRIAXONE 1,000 MG in NA CHLORIDE 0.9% 50 ML IVPB SCH ×2 (08:55→21:00)
[2022-06-12] MEDS: PANTOPRAZOLE 40 MG INJ IVP SCH ×2 (08:56→21:11)
[2022-06-12] MEDS: APIXABAN 5 MG TABLET PO SCH ×2 (08:56→20:59)
[2022-06-12] MEDS: TAMSULOSIN 0.4 MG SR CAP PO SCH (08:56)
[2022-06-12] MEDS: predniSONE 20 MG TAB PO SCH (08:56)
[2022-06-12] MEDS: LIDOCAINE VISCOUS 2% SOLN 15 ML UDC PO SCH ×2 (08:56→21:00)
[2022-06-12] MEDS: PARoxetine HCL 10 MG TAB PO SCH (08:56)
[2022-06-12] MEDS: MAGNES/ALUMIN/SIMET 30ML UCUP PO SCH (08:56)
--- NOTE | 2022-06-12 08:56 | RAD REPORT ---
EXAM DESCRIPTION: RAD - Chest Single View - 06/12/2022 8:43 am CLINICAL HISTORY: Rib Fractures COMPARISON: Chest Single View dated 06/11/2022; Chest Single View dated 06/10/2022; Chest Single Vie w dated 06/09/2022; Chest Single View dated 06/08/2022 FINDINGS: Lines: None. Lungs: Basilar opacities that are grossly similar. Pleural: Small left effusion. Cardiac: Heart size is unchanged. Mediastinum: Within normal limits. Bones: Displaced left-sided rib fractures. Other: None IMPRESSION: Basilar opacities likely representing atelectasis and small volume of pleural fluid. No appreciable pneumothorax.
[2022-06-12] MEDS: ENSURE CLEAR 200 ML CAN PO SCH ×2 (08:57→21:12)
[2022-06-12] MEDS: SOTALOL HCL 80 MG TAB PO SCH ×2 (08:58→20:59)
[2022-06-12] MEDS ORDERED: METHYLPREDNISOLONE 40 MG INJ IV ONE (12:00)
[2022-06-12] MEDS: ALPRAZOLAM 0.5 MG TABLET PO SCH (20:59)
[2022-06-12] MEDS: MONTELUKAST 10 MG TAB PO SCH (20:59)
[2022-06-12] MEDS: SODIUM CHLORIDE 0.9% 10ML INJ IV PRN (20:59)
[2022-06-12] MEDS ORDERED: METHYLPREDNISOLONE 40 MG INJ IV SCH (21:00)
--- NOTE | 2022-06-12 23:45 | PN ---
Date of Progress Note: 06/12/2022 Subjective: Patient was seen this morning for followup. He was sitting in chair. His was pres ent with him at bedside. Denies any new complaints except he has cough, chest congestion, and has martin rd time coughing up any mucus, which is his ongoing complaint since he has been in the hospital. His appetite is fair now. Overall, it is better than before. Objective: Vital Signs: Reviewed. HEENT: Unremarkable. Lungs: Bilateral scattered wheezing and rhonchi noted. Not using accessory muscles of respiration. Heart: Sounds normal. Abdomen: Soft. Bowel sounds normal. No guarding, rigidity, tenderness, distention. Extremities: No leg edema. Laboratory Data: White count 12.4, hemoglobin 9.8, platelets 395. Sodium 138, potassium 4, chloride 102, bicarb 33, BUN 24, creatinine 0.57, glucose 153. Chest x-ray shows bilateral basilar opacity, may represent atelectasis or pleural fluid. No pneumothorax. No other acute findings. Impression: 1.Left-sided multiple rib fractures. 2.Esophagitis. 3.Acute exacerbation of chronic obstructive pulmonary disease. 4.Acute respiratory failure with hypoxia. 5.Paroxysmal atrial fibrillation. 6.Generalized weakness. 7.Debility. Plan: We will go ahead and continue current medications. Continue current antibiotics, steroids. C urrently he is on oral prednisone. We will change it to IV steroid considering increased cough, ches t congestion, in view of today's lung findings. We will continue current empiric antibiotic as well. Nebulizer treatment will be continued. Continue current anticoagulation. Physical Therapy to work with the patient tomorrow. We will plan to go ahead and consult inpatient rehab. We did discuss ab out possible different options where he could potentially get therapy, detention facility or [facility] or inpatient rehab floor and the patient would like for us to [facility]. I will see him tomorrow for followup. INDRA/MODL Voice ID: [id number] Report ID: [id number]
[2022-06-13] MEDS: HYDROMORPHONE HCL 2 MG/ML inj IV PRN ×3 (00:34→23:05)
[2022-06-13] MEDS: IPRATROPIUM BROM 0.5MG/2.5ML NEB SCH ×4 (01:00→19:50)
[2022-06-13] MEDS: CEFTRIAXONE 1000 MG/VIAL ONE ×2 (07:10→07:32)
[2022-06-13] MEDS: INSULIN -REGULAR HUMAN 50 UNIT/0.5 ML ML SQ SCH ×4 (07:30→21:00)
[2022-06-13] MEDS: SUCRALFATE 1GM/10ML UCUP FT SCH ×4 (07:32→21:18)
[2022-06-13] MEDS: ARFORMOTEROL TARTRATE 15 MCG/2 ML VIAL.NEB NEB SCH ×2 (08:00→19:50)
[2022-06-13] MEDS: BUDESONIDE 0.5 MG/2 ML NEB NEB SCH ×2 (08:00→19:50)
[2022-06-13] MEDS: MAGNES/ALUMIN/SIMET 30ML UCUP PO SCH (08:08)
[2022-06-13] MEDS: CEFTRIAXONE 1,000 MG in NA CHLORIDE 0.9% 50 ML IVPB SCH ×2 (08:09→21:21)
[2022-06-13] MEDS: SOTALOL HCL 80 MG TAB PO SCH ×2 (08:09→21:18)
[2022-06-13] MEDS: PARoxetine HCL 10 MG TAB PO SCH (08:09)
[2022-06-13] MEDS: APIXABAN 5 MG TABLET PO SCH ×2 (08:09→21:18)
[2022-06-13] MEDS: FENTANYL 25 MCG/PATCH TD SCH (08:11)
[2022-06-13] MEDS: ENSURE CLEAR 200 ML CAN PO SCH ×2 (08:11→21:00)
[2022-06-13] MEDS: predniSONE 20 MG TAB PO SCH ×2 (08:21→21:18)
[2022-06-13] MEDS: TAMSULOSIN 0.4 MG SR CAP PO SCH (08:21)
[2022-06-13] MEDS: LIDOCAINE VISCOUS 2% SOLN 15 ML UDC PO SCH ×2 (08:21→21:00)
--- NOTE | 2022-06-13 08:36 | P.PN ---
Subjective Date of Service: 06/12/22 Chief Complaint: Status post pneumothorax Subjective: No new changes (Pain well controlled, ambulatory with assist) Physical Examination - Vital Signs Temperature: 97.7 F Blood Pressure: 132/76 Pulse: 74 Respirations: 18 Pulse Ox (%): 95 - Physical Exam General: Alert, In no apparent distress, Cooperative HEENT: Mucous membr. moist/pink Respiratory: Diminished, Other (Incentive spirometry ~ 500cc) Assessment And Plan - Current Problems (Diagnosis) (1) Multiple rib fractures involving first rib Current Visit: Yes Status: Acute Plan: - continue pain control regime - prefer PO minimize IV as much as possible - discussed spinal anesthesia vs rib blocks with Dr. Mata who discussed with patient. - continue oxygen supplementation - continue respiratory therapy with incentive spirometry - continue cough and deep breathing - albuterol, atrovent, acetylcysteine - PT consult - patient may need rehab - continue medical management - keep extremities wrapped with JAMIL - Daily chest X-Rays (2) Pulmonary contusion Current Visit: Yes Status: Acute
--- NOTE | 2022-06-13 08:37 | P.PN ---
Subjective Date of Service: 06/13/22 Chief Complaint: Status post pneumothorax Subjective: No new changes Physical Examination - Vital Signs Temperature: 97.7 F Blood Pressure: 132/76 Pulse: 74 Respirations: 18 Pulse Ox (%): 95 - Physical Exam General: Alert, In no apparent distress, Cooperative Respiratory: Diminished, Other (IS ~ 600cc) Assessment And Plan - Current Problems (Diagnosis) (1) Multiple rib fractures involving first rib Current Visit: Yes Status: Acute Plan: - continue pain control regime - prefer PO minimize IV as much as possible - discussed spinal anesthesia vs rib blocks with Dr. Mata who discussed with patient. - continue oxygen supplementation - continue respiratory therapy with incentive spirometry - continue cough and deep breathing - albuterol, atrovent, acetylcysteine - PT consult - patient may need rehab - continue medical management - keep extremities wrapped with JAMIL - Daily chest X-Rays (2) Pulmonary contusion Current Visit: Yes Status: Acute
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
--- NOTE | 2022-06-13 12:49 | EKG ---
Test Date: 2022-06-12 Test Time: 22:50:07 Tank Car Inspector: ISABEL MEASUREMENT RESULTS: Intervals: Rate: 67 WV: 130 QRSD: 74 QT: 412 QTc: 435 [place]: P: 64 WV: 130 QRS: 16 T: 30 INTERPRETIVE STATEMENTS: Normal sinus rhythm Normal ECG Compared to ECG 06/08/2022 08:29:44 Atrial fibrillation no longer present ST (T wave) deviation no longer present Electronically Signed On 06-13-22 12:47:58 LARRIMAN by Demetrio Aguilar
[2022-06-13] MEDS: PANTOPRAZOLE 40MG TABLET PO SCH (16:24)
[2022-06-13] MEDS: MONTELUKAST 10 MG TAB PO SCH (21:18)
[2022-06-13] MEDS: ALPRAZOLAM 0.5 MG TABLET PO SCH (21:18)
[2022-06-14] MEDS: IPRATROPIUM BROM 0.5MG/2.5ML NEB SCH ×4 (01:15→19:50)
[2022-06-14 04:41] LABS: Hematocrit 28.6 % (39.6-49.0); Lymphocytes % 7.9 % (15.3-44.8); MCV 98.3 fL (80-100); MPV 7.7 fL (7.6-11.3); RBC Red Blood Cell Count 2.91 M/uL (4.33-5.43)
[2022-06-14 04:59] LABS: Magnesium 2.2 mg/dL (1.8-2.4); Potassium 5.1 mmol/L (3.5-5.1)
--- NOTE | 2022-06-14 06:48 | PN ---
Date of Progress Note: 06/13/2022 Subjective: Patient was seen this morning for followup. He was lying in bed, not in any distress. His cough and chest congestion is better compared to yesterday. Objective: Vital Signs: Reviewed. HEENT: Unremarkable. Lungs: Bilateral good equal air entry. Clear to auscultation. No wheezing. No rales. No rhonchi. Heart: Sounds normal. Abdomen: Soft. Bowel sounds normal. No guarding, rigidity, tenderness, distention. Extremities: No leg edema. Laboratory Data: There were no new labs today. Impression: 1.Multiple rib fracture, left side. 2.Left-sided pneumothorax, resolved. 3.Acute exacerbation of chronic obstructive pulmonary disease. 4.Acute respiratory failure with hypoxia. 5.Type 2 diabetes mellitus. 6.Generalized weakness. 7.Debility. 8.Esophagitis with gastroesophageal reflux disease. Plan: We will go ahead and repeat blood work tomorrow morning. Discontinue IV steroid, start him on oral prednisone 20 mg 2 times a day. Continue oxygen replacement therapy and nebulizer treatment pe r order. We will also discontinue IV Protonix and start him on oral Protonix 40 mg 2 times a day. I did talk to patient regarding rehab and physical therapy and different options reviewed with the migue walker and the patient would like to go to fifth floor rehab if he is accepted, so we will go ahead and consult Social Service to assist with discharge planning. I will s ee him tomorrow for followup. INDRA/MODL Voice ID: [id number] Report ID: [id number]
[2022-06-14] MEDS: INSULIN -REGULAR HUMAN 50 UNIT/0.5 ML ML SQ SCH ×4 (07:30→21:00)
[2022-06-14] MEDS: ARFORMOTEROL TARTRATE 15 MCG/2 ML VIAL.NEB NEB SCH ×2 (08:02→19:50)
[2022-06-14] MEDS: BUDESONIDE 0.5 MG/2 ML NEB NEB SCH ×2 (08:02→19:50)
[2022-06-14] MEDS: MAGNES/ALUMIN/SIMET 30ML UCUP PO SCH (08:28)
[2022-06-14] MEDS: CEFTRIAXONE 1,000 MG in NA CHLORIDE 0.9% 50 ML IVPB SCH ×2 (08:29→21:31)
[2022-06-14] MEDS: SUCRALFATE 1GM/10ML UCUP FT SCH ×4 (08:30→21:00)
[2022-06-14] MEDS: PARoxetine HCL 10 MG TAB PO SCH (08:32)
[2022-06-14] MEDS: TAMSULOSIN 0.4 MG SR CAP PO SCH (08:33)
[2022-06-14] MEDS: APIXABAN 5 MG TABLET PO SCH ×2 (08:33→21:31)
[2022-06-14] MEDS: SOTALOL HCL 80 MG TAB PO SCH ×2 (08:34→21:31)
[2022-06-14] MEDS: PANTOPRAZOLE 40MG TABLET PO SCH ×2 (08:34→17:39)
[2022-06-14] MEDS: predniSONE 20 MG TAB PO SCH ×2 (08:35→21:31)
[2022-06-14] MEDS: ENSURE CLEAR 200 ML CAN PO SCH ×2 (08:36→21:32)
[2022-06-14] MEDS: HYDROMORPHONE HCL 2 MG/ML inj IV PRN ×2 (08:38→21:38)
[2022-06-14] MEDS: LIDOCAINE VISCOUS 2% SOLN 15 ML UDC PO SCH ×2 (09:00→21:33)
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
[2022-06-14] MEDS: MONTELUKAST 10 MG TAB PO SCH (21:31)
[2022-06-14] MEDS: ALPRAZOLAM 0.5 MG TABLET PO SCH (21:31)
[2022-06-15] MEDS: IPRATROPIUM BROM 0.5MG/2.5ML NEB SCH ×2 (00:40→08:42)
[2022-06-15] MEDS: HYDROMORPHONE HCL 2 MG/ML inj IV PRN (04:28)
[2022-06-15 05:35] VITALS: BP 143/84; TEMP 97.9
[2022-06-15] MEDS: INSULIN -REGULAR HUMAN 50 UNIT/0.5 ML ML SQ SCH (07:25)
--- NOTE | 2022-06-15 08:03 | P.PN ---
Subjective Date of Service: 06/15/22 Chief Complaint: Status post pneumothorax Subjective: Improving Physical Examination - Vital Signs Temperature: 97.9 F Blood Pressure: 143/84 Pulse: 74 Respirations: 15 Pulse Ox (%): 94 - Physical Exam General: Alert, In no apparent distress, Cooperative HEENT: Mucous membr. moist/pink Respiratory: Diminished (IS ~ 550cc) Assessment And Plan - Current Problems (Diagnosis) (1) Multiple rib fractures involving first rib Current Visit: Yes Status: Acute Plan: - continue pain control regime - prefer PO minimize IV as much as possible - continue oxygen supplementation - continue respiratory therapy with incentive spirometry - continue cough and deep breathing - albuterol, atrovent, acetylcysteine - PT consult - patient await rehab - continue medical management - keep extremities wrapped with JAMIL - Daily chest X-Rays (2) Pulmonary contusion Current Visit: Yes Status: Acute
[2022-06-15] MEDS: SUCRALFATE 1GM/10ML UCUP FT SCH (08:10)
[2022-06-15] MEDS: MAGNES/ALUMIN/SIMET 30ML UCUP PO SCH (08:11)
[2022-06-15] MEDS: APIXABAN 5 MG TABLET PO SCH (08:11)
[2022-06-15] MEDS: SOTALOL HCL 80 MG TAB PO SCH (08:12)
[2022-06-15] MEDS: PANTOPRAZOLE 40MG TABLET PO SCH (08:12)
[2022-06-15] MEDS: PARoxetine HCL 10 MG TAB PO SCH (08:12)
[2022-06-15] MEDS: TAMSULOSIN 0.4 MG SR CAP PO SCH (08:12)
[2022-06-15] MEDS: predniSONE 20 MG TAB PO SCH (08:12)
[2022-06-15] MEDS: ENSURE CLEAR 200 ML CAN PO SCH (08:14)
[2022-06-15] MEDS: LIDOCAINE VISCOUS 2% SOLN 15 ML UDC PO SCH (08:14)
[2022-06-15] MEDS: CEFTRIAXONE 1,000 MG in NA CHLORIDE 0.9% 50 ML IVPB SCH (08:15)
[2022-06-15] MEDS: BUDESONIDE 0.5 MG/2 ML NEB NEB SCH (08:42)
[2022-06-15] MEDS: ARFORMOTEROL TARTRATE 15 MCG/2 ML VIAL.NEB NEB SCH (08:42)
[2022-06-15 09:54] VITALS: O2SAT 96
--- NOTE | 2022-06-15 10:03 | PN ---
Date of Progress Note: 06/14/2022 Subjective: The patient was seen this morning for followup. No new complaints or problems reported by him this morning. The patient was requesting his pain medication to be given prior to physical th erapy so that way he can be more productive with the physical therapy session. Objective: Vital Signs: Reviewed. HEENT: Unremarkable. Lungs: Clear to auscultation. Heart: Sounds normal Abdomen: Soft. Bowel sounds normal. No guarding, rigidity, tenderness, distention. Extremities: No leg edema. Laboratory Data: White count 12.3, hemoglobin 9.5, platelets 411. Sodium 138, potassium 5.1, chlori de 101, bicarb 36, BUN 26, creatinine 0.61, glucose 165. Impression: 1.Multiple rib fracture, left side. 2.Left-sided pneumothorax, resolved. 3.Anemia, unspecified. 4.Acute exacerbation of chronic obstructive pulmonary disease. 5.Generalized weakness. 6.Debility. 7.Diabetes mellitus, type 2. Plan: We will go ahead and continue current antibiotic, oxygen, steroids, nebulizer treatment, and i nhaler. We will also continue current pain medication, which seems to be controlling his pain well a nd I did communicate with the nurse and ask her to make sure to give his pain medication about 20-30 minutes before Physical Therapy and Occupational Therapy decides to work with the patient. We waiting on inpatient rehab evaluation. INDRA/JUDY Voice ID: [id number] Report ID: [id number]
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
== END 2022-06-15 09:45 | DRG 981 ==
LOC: ER 11:45 → ERHOLD 13:41 → 3RD-ICU 17:17 → 2ND 06-10 14:30
PROVIDERS: ADMIT Internal Medicine; ATTEND Internal Medicine
PROC: 0JQ00ZZ Repair Scalp Subcutaneous Tissue and Fascia, Open Approach (ICD-10-PCS; principal; 2022-06-04)
PROC: 0JQK0ZZ Repair Left Hand Subcutaneous Tissue and Fascia, Open Approach (ICD-10-PCS; 2022-06-04)
PROC: 5A09557 Assistance with Respiratory Ventilation, Greater than 96 Consecutive Hours, Continuous Positive Airway Pressure (ICD-10-PCS; 2022-06-04)
PROC: 0W9B30Z Drainage of Left Pleural Cavity with Drainage Device, Percutaneous Approach (ICD-10-PCS; 2022-06-04)
DX: S22.42XA Multiple fractures of ribs, left side, initial encounter for closed fracture (principal); J96.01 Acute respiratory failure with hypoxia; S27.2XXA Traumatic hemopneumothorax, initial encounter; J44.1 Chronic obstructive pulmonary disease with (acute) exacerbation; S27.321A Contusion of lung, unilateral, initial encounter; I10 Essential (primary) hypertension; S61.412A Laceration without foreign body of left hand, initial encounter; S01.91XA Laceration without foreign body of unspecified part of head, initial encounter; S09.90XA Unspecified injury of head, initial encounter; Z88.7 Allergy status to serum and vaccine; Z79.01 Long term (current) use of anticoagulants; Z79.82 Long term (current) use of aspirin; Z79.84 Long term (current) use of oral hypoglycemic drugs; Z79.899 Other long term (current) drug therapy; Z87.891 Personal history of nicotine dependence; Z96.641 Presence of right artificial hip joint; Z20.822 Contact with and (suspected) exposure to COVID-19; V43.52XA Car driver injured in collision with other type car in traffic accident, initial encounter; Y92.89 Other specified places as the place of occurrence of the external cause; Y93.9 Activity, unspecified; E11.9 Type 2 diabetes mellitus without complications; E78.5 Hyperlipidemia, unspecified; K21.9 Gastro-esophageal reflux disease without esophagitis; D64.9 Anemia, unspecified; F41.9 Anxiety disorder, unspecified; M19.09 Primary osteoarthritis, other specified site; K21.00 Gastro-esophageal reflux disease with esophagitis, without bleeding; G47.00 Insomnia, unspecified; M21.371 Foot drop, right foot; M25.571 Pain in right ankle and joints of right foot; I48.0 Paroxysmal atrial fibrillation; N40.0 Benign prostatic hyperplasia without lower urinary tract symptoms
CPT/HCPCS: 36415; 70450; 71045; 71260; 72125; 74177; 80048; 80061; 81001; 82550; 82947; 83735; 84484; 85025; 86850; 86900; 86901; 87811; 90471; 90714; 93005; 94002; 94003; 94010; 94640; 97110; 97112; 97116; 97161; 97530; 99285; C9113; J1160; J1170; J1650; J1940; J2001; J2270; J2405; J2920; J3010; J3475; J7030; J7040; J7512; J7605; J7613; J7644; Q9967; U0003

== ENCOUNTER 2022-06-15 09:45 | Inpatient (IN) | payer OTHER ==
[2022-06-15] MEDS ORDERED: SODIUM CHLORIDE 0.9% 10ML INJ IV PRN (09:53)
[2022-06-15] MEDS ORDERED: ONDANSETRON 4 MG/2 ML VIAL IV PRN (09:53)
[2022-06-15] MEDS ORDERED: METOPROLOL TARTRATE 5 MG/5 ML INJ IV PRN (09:53)
[2022-06-15] MEDS ORDERED: D50W 25 GM/50 ML SYRINGE IV PRN (09:53)
[2022-06-15] MEDS ORDERED: GLUCAGON 1 MG/VIAL IM PRN ×2 (09:53)
[2022-06-15] MEDS ORDERED: HYDROMORPHONE HCL 2 MG/ML inj IV PRN (09:53)
--- OUTSIDE RECORDS SUMMARY | 2022-06-15 09:58 | XMS REPORT | Continuity of Care Document ---
:1945 Author Organization [facility] t Address [address] [place] [address] Care Team Providers Name Role Phone Yan [...] 3-09 ity of 00:00: [place] 00 [facility] Right hip Right hip Disease Active Uni vers pain pain 3-09 ity of 00:00: [place] 00 [facility] Allergies, Adverse Reactions, Alerts Allergy Allergy Status Severity Reaction(s) Onset Inactive Treating Comm ents Source Name Type Date Date Clinician Polio Propensi Active Rash Univers Virus ty to 6-18 ity of Vaccines adverse 00:00: [place] reaction 00 Medical s to Branch drug Social History Social Habit Start Date Stop Date Quantity Comments Source History of tobacco Cigarette Smoker [facility] use [facility] Alcohol intake [facility] Alcohol Comment Occasional [facility] Cigarettes smoked 2019-01-30 2019-01-30 Univers ity of current (pack per 00:00:00 00:00:00 ) - Reported Branch Tobacco Comment 2015-09-23 2015-09-23 Has one month Univer sity of 00:00:00 00:00:00 since no smoking. [facility] Sex Assigned At [birth year] [place] 00:00:00 [facility]:00 [facility] Smoking Status Start Date Stop Date Source Current some day smoker 2019-01-30 00:00:00 [facility] Medications Ordered Filled Start Stop Current Ordering Indication Dosage Frequency Signature Comments Components Source Medication Medication Date Date Medication? Clinician (SIG) Name Name mable Yes [id number] 1{tbl} Take 1 Univers en-codeine 7-10 tablet by ity of (TYLENOL-CO 00:00: mouth [place] DEINE #3) 00 every 4 Medical 300-30 mg (four) Branch tablet hours as needed for Pain (scale 4-6) or Pain (scale 7-10). acetaminoph Yes [id number] 1{tbl} Take 1 Univers en-codeine 7-10 tablet by ity of (TYLENOL-CO 00:00: mouth [place] DEINE #3) 00 every 4 Medical 300-30 mg (four) Branch tablet hours as needed for Pain (scale 4-6) or Pain (scale 7-10). acetaminoph Yes [id number] 1{tbl} Take 1 Univers en-codeine 7-10 tablet by ity of (TYLENOL-CO 00:00: mouth [place] DEINE #3) 00 every 4 Medical 300-30 mg (four) Branch tablet hours as needed for Pain (scale 4-6) or Pain (scale 7-10). acetaminoph Yes [id number] 1{tbl} Take 1 Univers en-codeine 7-10 tablet by ity of (TYLENOL-CO 00:00: mouth [place] DEINE #3) 00 every 4 Medical 300-30 mg (four) Branch tablet hours as needed for Pain (scale 4-6) or Pain (scale 7-10). acetaminoph Yes [id number] 1{tbl} Take 1 Univers en-codeine 7-10 tablet [...] Sprays in ity of ALLERGY 14:47: each [place] RELIEF) 50 32 nostril Medica l mcg/actuati daily. Branch on nasal spray tiotropium Yes 18ug Inhale 18 Un lauren (SPIRIVA 6-23 mcg daily. ity o f WITH 14:47: [place] HANDIHALER) 32 Medical 18 mcg Branch inhalation [...] 125 mm[Hg] Elizabeth de la torrey pressure [facility] Diastolic blood 2019-03-13 19:06:00 79 mm[Hg] [facility] Heart rate 2019-03-13 19:06:00 106 /min [facility] Respiratory rate 2019-03-13 19:06:00 18 /min Univ ers[facility] [place] [facility] Body height 2019-03-13 19:06:00 180.3 cm [facility] [place] [facility] Body weight 2019-03-13 19:06:00 90.719 kg [facility] [place] [facility] BMI 2019-03-13 19:06:00 27.89 kg/m2 [facility] [place] [facility] Systolic blood 2019-03-13 19:06:00 125 mm[Hg] Univer sity of pressure [place] [facility] Diastolic blood 2019-03-13 19:06:00 79 mm[Hg] Unive rsity of [facility] Branch Heart rate 2019-03-13 19:06:00 106 /min [facility] [place] [facility] Respiratory rate 2019-03-13 19:06:00 18 /min Univ ersity of [place] [facility] [place] Body height 2019-03-13 19:06:00 180.3 cm [facility] [place] [facility] [place] Body weight 2019-03-13 19:06:00 90.719 kg [facility] [place] [facility] BMI 2019-03-13 19:06:00 27.89 kg/m2 [facility] [place] [facility] Procedures Procedure Date / Time Performed Performing Clinician Sourc e XR ANKLE <3 VW LEFT 2019-03-13 19:17:48 Kevin Serna [facility] Encounters Start End Encounter Admission Attending Care Care Encounter Source Date/Time Date/Time Type Type Clinicians Facility Department ID 2019-03-29 2019-03-29 Telephone [facility] [id number] Univers 00:00:00 00:00:00 Yan [employer] [id number] it y of Surgical [id number] Dereck as Specialti [id number] Nj dical es [address] [place] 2019-03-29 2019-03-29 Telephone CARTER [facility] [id number] 00:00:00 00:00:00 Yan [employer] [id number] Surgical [id number] Specialti [id number] es [address] [place] 2019-03-13 2019-03-13 [facility] CARTER Serna [id number] Univers 14:17:47 23:59:00 Encounter [facility] [id number] ity of Surgical [id number] Dereck as Specialti [id number] Nj dical es 809 [facility] 2019-03-13 2019-03-13 [facility] [id number] 14:17:47 23:59:00 Encounter [facility] [id number] Surgical [id number] Specialti [id number] es [address] [place] 2019-03-13 2019-03-13 Office [facility] [id number] [facility] 14:01:05 14:50:54 Visit Kevin [facility] [id number] it y of Surgical [id number] Dereck as Specialti [id number] Nj dical es 198 [facility] 2019-03-13 2019-03-13 Office [facility] [id number] 14:01:05 14:50:54 Visit Kevin Alirio [facility] [id number] Surgical [id number] Specialti [id number] es [address] [place] Results Test Description Test Time Test Comments Results Result Comments Source SARS-COV2/RT-PCR ([facility]) 2020-01-09 07:59:00 Test Item Value Reference Range Interpretation Comme nts SARS-COV2/RT-PCR (test code = 3160711) Not Detected Not Detected, N egative SARS-COV-2 PERFORMING LAB (test code = [facility] 3556128) Negative results do not preclude SARS-CoV-2 infection [...] of the Act.Fact Sheet for Healthcare Pro viders:https://www.One Month/Documents/Xpert%20Xpress%20SARS%20CoV-2/Fact%20Sh eets/3023802%68DJNU-NBV-3%20HEALTHCARE%20PROVIDERS%20FACT%20SHEET.pdfFact Sheet for Healthcare Patients:https://www.twiDAQ/Documents/Xpert%20Xpress%20SARS%20CoV-2/Fact%20Sheets/3023801%20SARS-COV -2%20PATIENT%20FACT%20SHEET.pdfPerforming Laboratory:[facility], [place] [address]PK ANKLE <3 VW [id number] 19:42:43Good signs of callus formation there has been a slight shift in the mortise but it is set at this point.[facility]
[2022-06-15] MEDS ORDERED: DEXTROSE 10%-WATER 125 ML IV PRN (10:16)
[2022-06-15 10:41] VITALS: BMI 22.8
[2022-06-15] MEDS ORDERED: SUCRALFATE 1GM/10ML UCUP FT SCH (11:30)
[2022-06-15] MEDS: INSULIN -REGULAR HUMAN 50 UNIT/0.5 ML ML SQ SCH ×3 (11:30→19:59)
[2022-06-15 11:48] LABS: Specific Gravity 1.021 (1.005-1.030); Urine Bilirubin NEGATIVE (Negative); Urine Blood Negative (Negative); Urine Clarity Clear (Clear); Urine Color Yellow (Yellow); Urine Glucose NEGATIVE (Negative); Urine Mucus 3+ /HPF (None Seen); Urine Protein TRACE (Negative); Urine RBC <5 /HPF (None Seen); Urine Urobilinogen Normal (Normal)
[2022-06-15] MEDS ORDERED: HYDROCODONE/APAP 5/325 MG TAB PO PRN (13:12)
[2022-06-15] MEDS ORDERED: DOCUSATE NA/SENNA CONC 1 TAB PO PRN (13:12)
[2022-06-15] MEDS ORDERED: BISACODYL 10 MG RECTAL SUPP PR PRN (13:13)
[2022-06-15] MEDS ORDERED: TRAMADOL HCL 50 MG TAB PO PRN (13:18)
[2022-06-15] MEDS: IPRATROPIUM BROM 0.5MG/2.5ML NEB SCH ×2 (14:00→20:00)
[2022-06-15] MEDS: HYDROCODONE/APAP 5/325 MG TAB PO PRN (14:28)
--- NOTE | 2022-06-15 15:15 | RAD REPORT ---
EXAM DESCRIPTION: MRI - C Spine Wo Cont - 06/15/2022 2:58 pm CLINICAL HISTORY: R/O cervical cord compression COMPARISON: Head Brain Wo Cont dated 06/05/2022; Head C Spine Cap W Con dated 06/04/2022 TECHNIQUE: Sagittal T1-weighted, T2-weighted and T2-STIR sequences were obtained as well as axial T2 medic sequence obtained. FINDINGS: Cervical vertebral bodies are normal in height and alignment. No suspicious marrow edema o r marrow replacing process. Cerebellar tonsils and mid-line skull base show no suspicious finding. No significant finding at the C1 and C2 levels. C2-3 level: No significant findings. C3-4 level: Small posterior disc osteophyte complex uncovertebral joint hypertrophy that results in m oderate left and mild right neural foraminal narrowing. No central spinal stenosis. C4-5 level: Posterior disc osteophyte complex uncovertebral joint hypertrophy results in mild bilater al neural foraminal narrowing. No central spinal stenosis. C5-6 level: Central disc protrusion contacts the ventral aspect of the cord with mild resultant centr al spinal stenosis. Neural foraminal narrowing is mild bilaterally. C6-7 level: Small posterior disc osteophyte complex uncovertebral joint hypertrophy with moderate lef t and mild right neural foraminal narrowing. No central spinal stenosis. C7-T1 level: No significant findings. Cervical cord shows no focal narrowing, expansion or signal abnormality. IMPRESSION: No traumatic injury to the cervical spine is identified. No spinal cord compression or a bnormal cord signal. Degenerative changes as noted above.
[2022-06-15] MEDS: PANTOPRAZOLE 40MG TABLET PO SCH (16:10)
[2022-06-15] MEDS: SUCRALFATE 1GM/10ML UCUP PO SCH ×2 (16:11→19:56)
[2022-06-15] MEDS: LIDOCAINE 4% PATCH TOP SCH (16:37)
[2022-06-15] MEDS ORDERED: NA CHLORIDE 0.9% 250 ML ONE (18:56)
[2022-06-15] MEDS: SOTALOL HCL 80 MG TAB PO SCH (19:56)
[2022-06-15] MEDS: LIDOCAINE VISCOUS 2% SOLN 15 ML UDC PO SCH (19:56)
[2022-06-15] MEDS: APIXABAN 5 MG TABLET PO SCH (19:57)
[2022-06-15] MEDS: predniSONE 20 MG TAB PO SCH (19:57)
[2022-06-15] MEDS: GABAPENTIN 100 MG CAP PO SCH (19:57)
[2022-06-15] MEDS: MONTELUKAST 10 MG TAB PO SCH (19:57)
[2022-06-15] MEDS: ALPRAZOLAM 0.5 MG TABLET PO SCH (19:57)
[2022-06-15] MEDS: CEFTRIAXONE 1,000 MG in NA CHLORIDE 0.9% 50 ML IVPB SCH (19:58)
[2022-06-15] MEDS: ENSURE CLEAR 200 ML CAN PO SCH (19:59)
[2022-06-15] MEDS: ARFORMOTEROL TARTRATE 15 MCG/2 ML VIAL.NEB NEB SCH (20:00)
[2022-06-15] MEDS: BUDESONIDE 0.5 MG/2 ML NEB NEB SCH (20:00)
[2022-06-16] MEDS: HYDROCODONE/APAP 5/325 MG TAB PO PRN ×4 (00:37→16:03)
[2022-06-16] MEDS ORDERED: IPRATROPIUM BROM 0.5MG/2.5ML ONE ×2 (01:23→06:03)
[2022-06-16] MEDS: IPRATROPIUM BROM 0.5MG/2.5ML NEB SCH ×4 (01:30→19:55)
[2022-06-16 04:51] LABS: Absolute Lymphocytes (CBC) 0.8 K/uL (0.7-4.9); Hematocrit 28.6 % (39.6-49.0); MPV 7.9 fL (7.6-11.3); RBC Red Blood Cell Count 2.89 M/uL (4.33-5.43)
[2022-06-16 05:08] LABS: Albumin 2.6 g/dL (3.4-5.0); Potassium 4.5 mmol/L (3.5-5.1); Prealbumin 12.8 mg/dL (20-40)
[2022-06-16] MEDS ORDERED: BUDESONIDE 0.5 MG/2 ML NEB ONE ×2 (06:03→19:50)
[2022-06-16] MEDS ORDERED: ARFORMOTEROL TARTRATE 15 MCG/2 ML VIAL.NEB ONE (06:03)
[2022-06-16] MEDS: ARFORMOTEROL TARTRATE 15 MCG/2 ML VIAL.NEB NEB SCH ×2 (06:15→19:55)
[2022-06-16] MEDS: BUDESONIDE 0.5 MG/2 ML NEB NEB SCH ×2 (06:15→19:55)
[2022-06-16] MEDS: SUCRALFATE 1GM/10ML UCUP PO SCH ×4 (06:51→19:47)
[2022-06-16] MEDS: CEFTRIAXONE 1,000 MG in NA CHLORIDE 0.9% 50 ML IVPB SCH ×2 (06:51→19:47)
[2022-06-16] MEDS: PANTOPRAZOLE 40MG TABLET PO SCH ×2 (06:51→16:04)
[2022-06-16] MEDS: INSULIN -REGULAR HUMAN 50 UNIT/0.5 ML ML SQ SCH ×4 (07:30→19:52)
[2022-06-16] MEDS: LIDOCAINE VISCOUS 2% SOLN 15 ML UDC PO SCH ×2 (08:30→19:47)
[2022-06-16] MEDS: MAGNES/ALUMIN/SIMET 30ML UCUP PO SCH (08:30)
[2022-06-16] MEDS: PARoxetine HCL 10 MG TAB PO SCH (08:30)
[2022-06-16] MEDS: APIXABAN 5 MG TABLET PO SCH ×2 (08:30→19:49)
[2022-06-16] MEDS: GABAPENTIN 100 MG CAP PO SCH ×2 (08:31→19:48)
[2022-06-16] MEDS: TAMSULOSIN 0.4 MG SR CAP PO SCH (08:31)
[2022-06-16] MEDS: predniSONE 20 MG TAB PO SCH ×2 (08:31→19:47)
[2022-06-16] MEDS: SOTALOL HCL 80 MG TAB PO SCH ×2 (08:31→19:48)
[2022-06-16] MEDS: ENSURE CLEAR 200 ML CAN PO SCH ×2 (08:33→19:46)
[2022-06-16] MEDS: LORATADINE 10 MG TAB PO SCH (08:35)
[2022-06-16] MEDS: FLUTICASONE 50MCG NASAL SPRAY NAS SCH ×2 (08:36→19:49)
[2022-06-16] MEDS: LIDOCAINE 4% PATCH TOP SCH (08:38)
[2022-06-16] MEDS ORDERED: FENTANYL 25 MCG/PATCH TD SCH (09:00)
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
[2022-06-16] MEDS: ALPRAZOLAM 0.5 MG TABLET PO SCH (19:47)
[2022-06-16] MEDS: MONTELUKAST 10 MG TAB PO SCH (19:48)
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
[2022-06-17] MEDS: IPRATROPIUM BROM 0.5MG/2.5ML NEB SCH ×4 (01:40→21:00)
--- NOTE | 2022-06-17 06:27 | PN ---
Date of Progress Note: 06/16/2022 Subjective: The patient was seen this morning for followup. No new complaints or problems reported by the patient. He was lying in bed, not in distress. His pain was well controlled, but overall jus t reports that he does not feel good. Denies any shortness of breath. He has some cough, chest shane estion, not able to cough up any mucus. He is complaining of persistent pain and trouble walking wit h his right ankle and right foot. X-rays done on the medical floor were negative for any food or ank le fracture. The patient was on the rehab floor this morning when I saw him. Objective: Vital Signs: Reviewed. HEENT: Examination unremarkable. Lungs: Clear to auscultation. Cardiac: Heart sounds normal. Abdomen: Soft, bowel sounds normal. No guarding, rigidity, tenderness, distention. Extremities: On exam, no leg edema. Laboratory Data: White count 9.3, hemoglobin 9.8, platelets 363. Sodium 137, potassium 4.5, chlorid e 101, bicarb 33, BUN 24, creatinine 0.60, glucose 151, albumin 2.6, magnesium 2. Urinalysis: Unrem arkable, except for the presence of yeast and protein. Impression: 1.Multiple left-sided rib fracture. 2.Right foot and right ankle pain. 3.Chronic obstructive pulmonary disease. 4.Anemia. 5.Generalized weakness. 6.Debility. 7.Esophagitis. 8.Gastroesophageal reflux disease. Plan: We will go ahead and continue current proton pump inhibitor and Carafate. The patient's pain is well controlled with current pain medications. After I saw him, details were communicated with Dr Aurea Barry. The patient was just experiencing some "brain fall," so we will cut back on some of his pain medications. We will discontinue fentanyl patch. Discontinue tramadol and Dilaudid, and we jenny l only give him hydrocodone on a p.r.n. basis. Continue alprazolam for insomnia. Continue Eliquis a nd sotalol for atrial fibrillation, and I will see him tomorrow for followup. INDRA/MODL Voice ID: [id number] Report ID: [id number]
[2022-06-17] MEDS: PANTOPRAZOLE 40MG TABLET PO SCH ×2 (07:29→16:43)
[2022-06-17] MEDS: SUCRALFATE 1GM/10ML UCUP PO SCH ×4 (07:29→19:52)
[2022-06-17] MEDS: INSULIN -REGULAR HUMAN 50 UNIT/0.5 ML ML SQ SCH ×4 (07:30→19:49)
[2022-06-17] MEDS: LIDOCAINE VISCOUS 2% SOLN 15 ML UDC PO SCH ×3 (08:00→19:54)
[2022-06-17] MEDS: FLUTICASONE 50MCG NASAL SPRAY NAS SCH ×2 (08:00→19:53)
[2022-06-17] MEDS: ARFORMOTEROL TARTRATE 15 MCG/2 ML VIAL.NEB NEB SCH (08:00)
[2022-06-17] MEDS: BUDESONIDE 0.5 MG/2 ML NEB NEB SCH (08:00)
[2022-06-17] MEDS ORDERED: ROFLUMILAST 500 MCG TABLET PO SCH (08:00)
--- NOTE | 2022-06-17 08:55 | P.RH.PN ---
Estimated Length of Stay: 10 Expected Discharge Date: 06/24/22 Discharge Disposition Plan: Home Family Support: Yes Residential Goal: Mobility, Transfers, Self Care Vital Signs: Last Vital Signs Temp 98.0 F 06/17/22 08:00 Pulse 75 06/17/22 08:00 Resp 18 06/17/22 08:00 BP 147/70 H 06/17/22 08:00 Pulse Ox 92 06/17/22 08:00 Laboratory: Laboratory Last Values WBC 9.30 K/uL (4.3-10.9) 06/16/22 04:20 RBC 2.89 M/uL (4.33-5.43) L 06/16/22 04:20 Hgb 9.8 g/dL (13.6-17.9) L 06/16/22 04:20 Hct 28.6 % (39.6-49.0) L 06/16/22 04:20 MCV 99.0 fL (80-100) 06/16/22 04:20 MCH 33.9 pg (27.0-35.0) 06/16/22 04:20 MCHC 34.3 g/dL (32.0-36.0) 06/16/22 04:20 RDW 13.7 % (12.1-15.2) 06/16/22 04:20 Plt Count 363 K/uL (152-406) 06/16/22 04:20 MPV 7.9 fL (7.6-11.3) 06/16/22 04:20 Neutrophils % 83.4 % (41.7-73.7) H 06/16/22 04:20 Lymphocytes % 9.0 % (15.3-44.8) L 06/16/22 04:20 Monocytes % 7.3 % (3.3-12.3) 06/16/22 04:20 Eosinophils % 0.1 % (0-4.4) 06/16/22 04:20 Basophils % 0.2 % (0-1.3) 06/16/22 04:20 Absolute Neutrophils 7.8 K/uL (1.8-8.0) 06/16/22 04:20 Absolute Lymphocytes 0.8 K/uL (0.7-4.9) 06/16/22 04:20 Absolute Monocytes 0.7 K/uL (0.1-1.3) 06/16/22 04:20 Absolute Eosinophils 0.0 K/uL (0-0.5) 06/16/22 04:20 Absolute Basophils 0.0 K/uL (0-0.5) 06/16/22 04:20 Sodium 137 mmol/L (136-145) 06/16/22 04:25 Potassium 4.5 mmol/L (3.5-5.1) 06/16/22 04:25 Chloride 101 mmol/L (98-107) 06/16/22 04:25 Carbon Dioxide 33 mmol/L (21-32) H 06/16/22 04:25 Anion Gap 7.5 mEq/L (5.0-15.0) 06/16/22 04:25 BUN 24 mg/dL (7-18) H 06/16/22 04:25 Creatinine 0.60 mg/dL (0.55-1.3) 06/16/22 04:25 Est GFR (CKD-EPI) 101 ml/min (=/>90) 06/16/22 04:25 Glucose 151 mg/dL (74-106) H 06/16/22 04:25 POC Glucose 112 mg/dL (65-120) 06/17/22 07:02 Calcium 8.4 mg/dL (8.5-10.1) L 06/16/22 04:25 Magnesium 2.0 mg/dL (1.8-2.4) 06/16/22 04:25 Albumin 2.6 g/dL (3.4-5.0) L 06/16/22 04:25 Prealbumin 12.8 mg/dL (20-40) L 06/16/22 04:25 Urine Color Yellow (Yellow) 06/15/22 10:05 Urine Clarity Clear (Clear) 06/15/22 10:05 Urine pH 7.0 (5.0-7.0) 06/15/22 10:05 Ur Specific [place] 1.021 (1.005-1.030) 06/15/22 10:05 Glucose (UA)(Auto) Negative (Negative) 06/15/22 10:05 Urine Ketones Negative (Negative) 06/15/22 10:05 Urine Blood Negative (Negative) 06/15/22 10:05 Urine Nitrite Negative (Negative) 06/15/22 10:05 Urine Bilirubin Negative (Negative) 06/15/22 10:05 Urine Urobilinogen Normal (Normal) 06/15/22 10:05 Ur Leukocyte Esterase Negative [place]/uL (Negative) 06/15/22 10:05 Urine RBC <5 /HPF (None Seen) 06/15/22 10:05 Urine WBC <5 /HPF (<5) 06/15/22 10:05 U Non-Squamous Epi Cells <5 /HPF (None Seen) 06/15/22 10:05 Hyaline Casts 0-5 /LPF (None Seen) 06/15/22 10:05 Urine Mucus 3+ /HPF (None Seen) H 06/15/22 10:05 Urine Yeast (Budding) Trace /HPF (None Seen) H 06/15/22 10:05 Urine Total Protein Trace (Negative) H 06/15/22 10:05 Weight: 164 lb 4.8 oz Wound Present: No Closed Surgical Incision Present: Yes Negative Pressure Wound Therapy Present: No Physician Update: His pain medications have been decreased including stopping the fentanyl patch and gabapentin. He will continue norco and lidocaine patch. He has marked right foot eversion and dorsiflexion weakness likely from a peripheral nerve injury. He is making slow progress overall so far. His right foot is more flat with ambulation. Summary: Patient's care plan and manager long term care goals have been reviewed and revised as necessary. Please see the Rehabilitation Signature page for all necessary signatures.
[2022-06-17] MEDS: TAMSULOSIN 0.4 MG SR CAP PO SCH (09:12)
[2022-06-17] MEDS: MAGNES/ALUMIN/SIMET 30ML UCUP PO SCH (09:12)
[2022-06-17] MEDS: APIXABAN 5 MG TABLET PO SCH ×2 (09:12→19:44)
[2022-06-17] MEDS: predniSONE 20 MG TAB PO SCH (09:12)
[2022-06-17] MEDS: SOTALOL HCL 80 MG TAB PO SCH ×2 (09:13→19:44)
[2022-06-17] MEDS: GABAPENTIN 100 MG CAP PO SCH ×2 (09:13→19:46)
[2022-06-17] MEDS: LORATADINE 10 MG TAB PO SCH (09:13)
[2022-06-17] MEDS: CEFTRIAXONE 1,000 MG in NA CHLORIDE 0.9% 50 ML IVPB SCH ×2 (09:13→19:47)
[2022-06-17] MEDS: PARoxetine HCL 10 MG TAB PO SCH (09:13)
[2022-06-17] MEDS: LIDOCAINE 4% PATCH TOP SCH (09:14)
[2022-06-17] MEDS: ENSURE CLEAR 200 ML CAN PO SCH ×2 (09:14→19:46)
[2022-06-17] MEDS: HYDROCODONE/APAP 5/325 MG TAB PO PRN ×2 (09:44→20:13)
--- NOTE | 2022-06-17 12:06 | P.PN ---
Subjective Date of Service: 06/17/22 Chief Complaint: Shortness of breath chest congestion Patient is not doing well is becoming very depressed very anxious some swelling of his lower extremities also having significant amount of chest discomfort afraid to ambulate Review of Systems General: Weakness Respiratory: Cough, Shortness of Breath Physical Examination - Vital Signs Temperature: 98.0 F Blood Pressure: 147/70 Pulse: 75 Respirations: 18 Pulse Ox (%): 92 - Physical Exam General: Alert, Oriented x3, Moderate distress Respiratory: Clear to auscultation bilaterally, Diminished Cardiovascular: Regular rate/rhythm, Normal S1 S2 - Studies Microbiology Data (last 24 hrs): 06/15/22 10:05 Clean Catch Urine [place] Count - Final No growth. 06/15/22 10:05 Clean Catch Urine - Final No growth. Assessment And Plan - Current Problems (Diagnosis) (1) COPD exacerbation Onset Date: 04/11/16 Current Visit: No Status: Acute Plan: Patient still complaining of cough chest congestion vies to do incentive spirometry is getting very depressed is back on his gabapentin and and Paxil does take Xanax as needed ordered another chest x-ray reduce the dose of prednisone to 10 mg twice a day knife changer to Dulera 2 puffs twice a day DC Brovana DC nebulized Pulmicort advised to do incentive spirometry
--- NOTE | 2022-06-17 13:15 | RAD REPORT ---
EXAM DESCRIPTION: RAD - Chest Single View - 06/17/2022 1:04 pm CLINICAL HISTORY: Follow-up for rib fracture Chest pain. COMPARISON: Chest Single View dated 06/13/2022; Chest Single View dated 06/12/2022; Chest Single Vie w dated 06/11/2022; Chest Single View dated 06/10/2022 FINDINGS: Portable technique limits examination quality. Compare to 06/13/2022 study, the left hemithorax appears nearly completely opacified. There is volume loss on the left with [id number] midline shift present. This may be related to left lung atelecta sis. Right lung is clear. Multiple displaced left-sided rib fractures again seen.Recommend CT chest f or further evaluation.
--- NOTE | 2022-06-17 15:35 | RAD REPORT ---
EXAM DESCRIPTION: CT - Thorax W/ Con CLINICAL HISTORY: Chest pain Atlectasis of Left lung COMPARISON: Thorax Wo Con dated 01/06/2022 FINDINGS: There is significant atelectasis seen involving the lingula and left lower lobe. Small to moderate left pleural effusion is present. No pneumothorax. The right lung is emphysematous and mildl y hyperinflated. No axillary, mediastinal or hilar adenopathy. Again noted are multiple displaced left-sided rib fractures. No gross upper abdominal finding. All CT scans are performed using dose optimization technique as appropriate and may include automated exposure control or mA/KV adjustment according to patient size. IMPRESSION: Significant atelectasis is seen involving the lingula and left lower lobe. Small to moderate left pleural effusion. Multiple displaced left-sided rib fractures again seen.
--- NOTE | 2022-06-17 18:39 | PN ---
Date of Progress Note: 06/17/2022 The patient was seen today, 06/17/2022 at noon. Mr. Gant while lying in bed, is somewhat more short of breath, and has pain noted in the left chest where there are rib fractures. He had a chest x-ray done at 1:04 p.m. and the chest x-ray identified left hemithorax, which appears nearly complete ly opacified and this was compared to a study on 06/13. There is loss of volume of the left with lef t to right midline shift, which is likely representing a left lung collapse or atelectasis. The righ t lung appears clear and there are multiple displaced left rib fractures with recommendation of a CT scan to be performed of the chest. The patient was seen by Dr. Davis Quinonez, liquefaction plant operator and he did discuss the findings with me and plans to involve Dr. Camarillo, the trauma surgeon and to have th e patient evaluated for possible surgical procedure to help reinflate the lung as appropriate. The p atient will have to be discharged from the inpatient rehabilitation unit to the acute care floor to a ffect the appropriate treatment for his complete left lung collapse. Otherwise, the patient was begi nning to make some improvement with his therapy, but was limited by his shortness of breath and chest pain. He did have also a significant finding of right lower extremity weakness with eversion and do rsiflexion, likely due to a peripheral nerve injury involving the area. ADELITA/SCOTTL Voice ID: [id number] Report ID: [id number]
[2022-06-17] MEDS: predniSONE 10 MG TAB PO SCH (19:44)
[2022-06-17] MEDS: MONTELUKAST 10 MG TAB PO SCH (19:48)
[2022-06-17] MEDS: DULERA 200/5 (MOMETASONE/FORMOTEROL) INHALER IH SCH (19:52)
[2022-06-17] MEDS ORDERED: ENSURE HIGH PROTEIN 237 ML CAN PO SCH (20:00)
[2022-06-17] MEDS ORDERED: GABAPENTIN 100 MG CAP PO SCH (20:00)
[2022-06-17] MEDS ORDERED: ALPRAZOLAM 0.5 MG TABLET PO SCH (21:00)
--- NOTE | 2022-06-17 23:04 | DS ---
Date of Discharge: 06/18/2022 Disposition: Patient will be transferred to [facility] in [place]. Physical Examination: HEENT: Unremarkable. Lungs: Clear to auscultation on the right side and left side. No air entry, not in any respiratory distress. Heart: Sounds normal. Abdomen: Soft. Bowel sounds normal. No guarding, rigidity, tenderness, distention. Extremities: No leg edema. Laboratory Data: On 06/16/2022, white count 9.3, hemoglobin 9.8, platelets 363. Sodium 137, potassium 4.5, chloride 101, bicarb 33, BUN 24, creatinine 0.60, glucose 151. Serum albumin level 2.6. Yesterday, chest x-ray today shows complete opacification of left hemithorax with volume loss and shifting of the mediastinum on the left side. Right lung is clear. Discharge Diagnoses: 1. Multiple left-sided rib fractures. 2. Left lung collapse. 3. Anemia, unspecified. 4. Paroxysmal atrial fibrillation. 5. Chronic obstructive pulmonary disease. 6. Acute respiratory failure with hypoxia. 7. Type 2 diabetes mellitus. 8. Hypertension. 9. Hyperlipidemia. 10. Benign prostatic hypertrophy. 11. Osteoarthritis, multiple sites. 12. Anxiety. 13. Insomnia. Hospital Course: This is a 76-year-old very pleasant male patient admitted to rehab floor from medical floor. The patient was seen by Dr. Barry for rehab therapy consultation and he started to receive physical therapy, occupational therapy under guidance of Dr. Barry. He is on Eliquis for atrial fibrillation problem. His last chest x-ray was on 06/13/2022 and he had multiple x-rays done during his stay in the medical floor and he had small left- sided pleural effusion. Otherwise, no other lung findings, but yesterday's chest x-ray shows significantly different lung findings with total collapse of the left lung and with that Dr. Quinonez, has recommended for us to transfer him to [place] for consideration of surgery for his multiple left foot fractures in terms of immobilization of left ribcage with hardware placement and he did contact cardiothoracic surgeon, who has accepted the patient and we have initiated arrangements for the transfer. I did go back to hospital and communicated all these details and findings with the patient and patient's , who was at bedside and patient is in agreement with transfer and he will be transferred as soon as arrangements gets completed. The patient is medically stable for transfer via ground ambulance. INDRA/MODL Voice ID: [id number] Report ID: [id number] MTDD
[2022-06-18] MEDS: IPRATROPIUM BROM 0.5MG/2.5ML NEB SCH ×2 (03:15→07:52)
[2022-06-18] MEDS: HYDROCODONE/APAP 5/325 MG TAB PO PRN ×2 (07:11→12:53)
[2022-06-18 07:23] VITALS: BP 149/74; TEMP 98
[2022-06-18] MEDS: INSULIN -REGULAR HUMAN 50 UNIT/0.5 ML ML SQ SCH ×2 (07:30→11:30)
[2022-06-18] MEDS: APIXABAN 5 MG TABLET PO SCH (08:00)
[2022-06-18] MEDS: LIDOCAINE VISCOUS 2% SOLN 15 ML UDC PO SCH (08:00)
[2022-06-18] MEDS ORDERED: PARoxetine HCL 10 MG TAB PO SCH (08:00)
[2022-06-18] MEDS: SUCRALFATE 1GM/10ML UCUP PO SCH ×2 (08:32→12:22)
[2022-06-18] MEDS: CEFTRIAXONE 1,000 MG in NA CHLORIDE 0.9% 50 ML IVPB SCH (08:33)
[2022-06-18] MEDS: TAMSULOSIN 0.4 MG SR CAP PO SCH (08:37)
[2022-06-18] MEDS: SOTALOL HCL 80 MG TAB PO SCH (08:37)
[2022-06-18] MEDS: LORATADINE 10 MG TAB PO SCH (08:37)
[2022-06-18] MEDS: predniSONE 10 MG TAB PO SCH (08:37)
[2022-06-18] MEDS: LIDOCAINE 4% PATCH TOP SCH (08:37)
[2022-06-18] MEDS: GABAPENTIN 100 MG CAP PO SCH (08:38)
[2022-06-18] MEDS: PANTOPRAZOLE 40MG TABLET PO SCH (08:55)
[2022-06-18] MEDS: PARoxetine HCL 10 MG TAB PO SCH (08:56)
[2022-06-18] MEDS ORDERED: ENOXAPARIN 40 MG/0.4 ML SQ SCH (09:00)
[2022-06-18] MEDS: DULERA 200/5 (MOMETASONE/FORMOTEROL) INHALER IH SCH (09:01)
[2022-06-18] MEDS: FLUTICASONE 50MCG NASAL SPRAY NAS SCH (09:10)
[2022-06-18] MEDS: ENSURE CLEAR 200 ML CAN PO SCH (10:21)
[2022-06-18] MEDS: MAGNES/ALUMIN/SIMET 30ML UCUP PO SCH (10:22)
[2022-06-18] MEDS ORDERED: ALBUTEROL 2.5 MG/3 ML NEB SOL NEB SCH ×2 (11:00→20:00)
[2022-06-18] MEDS ORDERED: ACETYLCYST 20% 4 ML VIAL IH SCH ×2 (11:00→20:00)
[2022-06-18 11:02] VITALS: O2SAT 98
--- NOTE | 2022-06-18 13:34 | RAD REPORT ---
[facility]05 pm CLINICAL HISTORY: Chest pain COMPARISON: June 17, 2022 FINDINGS: Opacification of the left hemithorax with volume loss represents a combination of atelect asis and pleural effusion. No significant change since the prior exam. Right lung appears clear of acute infiltrate
--- NOTE | 2022-06-18 16:00 | PN ---
Date of Progress Note: 06/17/2022 Subjective: Seen for followup this morning and he was sleeping and I did go back in the afternoon to see him for followup and his was present with him at bedside. He denies any new complaints. His pain in the left ribcage is under good control with current pain medications. Objective: Vital Signs: Reviewed. HEENT: Examination unremarkable. Lungs: Clear to auscultation on the right side. Left hemithorax has diminished to absent breath sounds. Not using any accessory muscles of respiration. Heart: Sounds normal. Abdomen: Soft, bowel sounds normal. No guarding, rigidity, tenderness, distention. Extremities: No leg edema. Chest x-ray and CAT scan of the chest finding reviewed. Impression: 1. Collapse of left lung. 2. Multiple left-sided rib fractures. 3. Chronic obstructive pulmonary disease. 4. Respiratory failure with hypoxia, stable. 5. Gastroesophageal reflux disease. 6. Esophagitis. 7. Paroxysmal atrial fibrillation. 8. After the patient's chest x-ray showing significantly different finding this time compared to previous x-ray, which was about 3 days ago, details were discussed with Dr. Quinonez. This patient will need a bronchoscopy for sure to see what is causing this collapse of the left lung. We are concerned about possibility of mucus plug doing so. He is at high risk from any intervention today in his severe COPD and the patient will also benefit from evaluation by thoracic surgeon to see whether he needs a plating of his left rib cage because of the rib fracture and for all this, he will need a higher level of care and it was recommended for him to be transferred to [place] and the patient understands and agrees and we have initiated the transfer process. INDRA/MODL Voice ID: [id number] Report ID: [id number] [place]
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
== END 2022-06-18 12:00 | disposition short-term general hospital (02) | DRG 559 ==
LOC: 5TH 09:45
PROVIDERS: ADMIT Internal Medicine; ATTEND Internal Medicine
DX: S22.42XD Multiple fractures of ribs, left side, subsequent encounter for fracture with routine healing (principal); J96.01 Acute respiratory failure with hypoxia; J44.1 Chronic obstructive pulmonary disease with (acute) exacerbation; J98.19 Other pulmonary collapse; E11.9 Type 2 diabetes mellitus without complications; I10 Essential (primary) hypertension; E78.5 Hyperlipidemia, unspecified; K57.90 Diverticulosis of intestine, part unspecified, without perforation or abscess without bleeding; K21.00 Gastro-esophageal reflux disease with esophagitis, without bleeding; S01.01XA Laceration without foreign body of scalp, initial encounter; D64.9 Anemia, unspecified; F41.9 Anxiety disorder, unspecified; M21.371 Foot drop, right foot; I48.0 Paroxysmal atrial fibrillation; M25.571 Pain in right ankle and joints of right foot; M79.671 Pain in right foot; N40.0 Benign prostatic hyperplasia without lower urinary tract symptoms; G47.00 Insomnia, unspecified; M19.09 Primary osteoarthritis, other specified site; Z20.822 Contact with and (suspected) exposure to COVID-19
CPT/HCPCS: 36415; 71045; 71260; 72141; 80048; 81001; 82040; 82947; 83735; 84134; 85025; 87086; 87088; 94640; 97110; 97112; 97116; 97161; 97165; 97530; 97542; J1650; J1815; J2001; J3535; J7050; J7512; J7605; J7608; J7613; J7644; Q9967

== ENCOUNTER 2023-05-25 17:11 | Emergency (ER) | payer OTHER ==
--- OUTSIDE RECORDS SUMMARY | 2023-05-25 17:15 | XMS REPORT | Continuity of Care Document ---
:1945 Author Organization [facility] t Address [address] [place] [address] Care Team Providers Name Role Phone SAMIR MUNOZ Attending Clinician Unavailable YAMILET FOSS Attending Clinician Unavailable Costa SANDOVAL, Luca Attending Clinician Yan Church MD Attending Clinician Kevin Ashford Attending Clinician SAMIR MUNOZ Admitting Clinician Unavailable Payers Payer Name Policy Type Policy Number Effective Date Expiration Date S ource [employer]IC[employer] [id number] 2012 SUPPLEMENT 00:00:00 MEDICARE A B [id number] 2012 00:00:00 Problems Condition Condition Condition Status Onset Resolution Last Treating Co mments Source Name Details Category Date Date Treatment Clinician Date Bilateral Bilateral Disease Active Uni vers knee pain knee pain 3- ity of 00:: [place] [id number] [facility] Right hip Right hip Disease Active Uni vers pain pain 3- ity of 00:00: [place] [address] [facility] Allergies, Adverse Reactions, Alerts Allergy Allergy Status Severity Reaction(s) Onset Inactive Treating Comm ents Source Name Type Date Date Clinician Polio Allergy Active Rash [place] Virus to 01-08 Health Vaccine substanc 00:00: Live e 00 Oral Trivalen t Polio Propensi Active Rash Univers Virus ty to 01-01 ity of Vaccines adverse 00:00: [place] reaction 00 Medical s to Branch drug Social History Social Habit Start Date Stop Date Quantity Comments Source History of tobacco Cigarette Smoker [facility] Alcohol intake [facility] Alcohol Comment [facility] Exposure to 2022-06-27 2022-07-07 Not sure [facility] SARS-CoV-2 (event) 00:00:00 15:50:00 Cigarettes smoked 2019-01-30 2019-01-30 Univers ity of current (pack per 00:00:00 00:00:00 [facility]) - Reported [place] Tobacco Comment 2015-09-23 2015-09-23 Has one month Univer sity of 00:00:00 00:00:[address] [facility] Sex Assigned At 1945 [address] [facility] [address] [facility] 00:00:00 00:00:00 [facility] Sex Assigned At [birth year] [facility] 00:00:00 00:00:00 [facility] Smoking Status Start Date Stop Date Source Tobacco smoking consumption [place] [facility] unknown Current some day smoker 2019-01-30 00:00:00 [facility] Medications Ordered Filled Start Stop Current Ordering Indication Dosage Frequency Signature Comments Components Source Medication Medication Date Date Medication? Clinician (SIG) Name Name mable Yes [id number] 1{tbl} Take 1 Univers en-codeine 7-10 tablet by ity of (TYLENOL-CO 00:00: mouth [place] DEINE #3) 00 every 4 Medical 300-30 mg (four) Branch tablet hours as needed for Pain (scale 4-6) or Pain (scale 7-10). acetaminoph Yes [id number] 1{tbl} Take 1 Univers en-codeine 7-10 tablet by ity of (TYLENOL-CO 00:00: mouth [place] DEINE #3) 00 every 4 Medical 300-30 mg (four) Branch tablet hours as needed for Pain (scale 4-6) or Pain (scale 7-10). acetaminoph Yes [id number] 1{tbl} Take 1 Univers en-codeine 7-10 tablet by ity of (TYLENOL-CO 00:00: mouth [place] DEINE #3) 00 every 4 Medical 300-30 mg (four) Branch tablet hours as needed for Pain (scale 4-6) or Pain (scale 7-10). acetaminoph Yes [id number] 1{tbl} Take 1 Univers en-codeine 7-10 tablet by ity of (TYLENOL-CO 00:00: mouth [place] DEINE #3) 00 every 4 Medical 300-30 mg (four) Branch tablet hours as needed for Pain (scale 4-6) or Pain (scale 7-10). acetaminoph Yes [id number] 1{tbl} Take 1 Univers en-codeine 7-10 tablet [...] TWICE A Medical DAY Branch fluticasone Yes 2{spray Use 2 Un [...] mouth [place] tablet 32 daily. Medical Branch acetaminoph Yes 1{tbl} Take 1 Tab Univers [...] Source Systolic blood 2019-03-13 19:06:00 125 mm[facility]Hg[facility] 2019-03-13 19:06:00 79 mm[Hg] Unive [facility] Heart rate 2019-03-13 19:06:00 106 /min General acute hospital Respiratory rate 2019-03-13 19:06:00 18 /min [facility] Body height 2019-03-13 19:06:00 180.3 cm General acute hospital Body weight 2019-03-13 19:06:00 90.719 kg General acute hospital BMI 2019-03-13 19:06:00 27.89 kg/m2 General acute hospital Systolic blood 2019-03-13 19:06:00 125 mm[Hg[facility] Diastolic blood 2019-03-13 19:06:00 79 mm[Hg] Unive [facility] Heart rate 2019-03-13 19:06:00 106 /min General acute hospital Respiratory rate 2019-03-13 19:06:00 18 /min [facility] Body height 2019-03-13 19:06:00 180.3 cm General acute hospital Body weight 2019-03-13 19:06:00 90.719 kg General acute hospital BMI 2019-03-13 19:06:00 27.89 kg/m2 General acute hospital Procedures Procedure Date / Time Performed Performing Clinician Sourc e XR ANKLE <3 VW LEFT 2019-03-13 19:17:48 Kevin Serna General acute hospital Encounters Start End Encounter Admission Attending Care Care Encounter Source Date/Time Date/Time Type Type Clinicians Facility Department ID 2022-07-20 Outpatient [facility] [id number] [place] 06:41:42 [id number] [facility] 2022-07-07 Outpatient [facility] [id number] [place] 15:52:21 [id number] [facility] 2022-07-05 Outpatient [facility] [id number] [place] 15:12:02 [id number] [facility] 2022-06-29 Outpatient [facility] [id number] [place] 06:49:39 [id number] [facility] 2022-06-[address] [facility] [id number] [facility] 19:53:27 [facility] 2022-07-20 2022-07-20 Outpatient PIPO [facility] [id number] [place] 11:00:00 11:00:00 YAMILET Tujose alberto 2022-07-07 2022-07-07 Office SHRUTI Skelton [facility] [id number] [place] 15:45:00 16:48:07 Visit Luca [facility] [id number] H roberto [place] [id number] SMI [id number] 2019-03-29 2019-03-29 [facility]phone [facility] [id number] 00:00:00 00:00:00 Yan [employer] [id number] Surgical [id number] Specialti [id number] es [address] [place] 2019-03-29 2019-03-29 [facility]phone [facility] [id number] [facility] 00:00:00 00:00:00 Yan [employer] [id number] it y of Surgical [id number] Dereck as Specialti [id number] Ak dical es [address] [place] 2019-03-13 2019-03-13 [facility] CARTER Serna [id number] 14:17:47 23:59:00 Encounter Kevin Amezquita [facility] [id number] Surgical [id number] Specialti [id number] es [address] [place] 2019-03-13 2019-03-13 [facility] [id number] Univers 14:17:47 23:59:00 Encounter Kevin Amezquita [facility] [id number] ity of Surgical [id number] Dereck as Specialti [id number] Me dical es 809 [facility] 2019-03-13 2019-03-13 Office [facility] [id number] 14:01:05 14:50:54 Visit Kevin Amezquita [facility] [id number] Surgical [id number] Specialti [id number] es [address] [place] 2019-03-13 2019-03-13 Office [facility] [id number] Univers 14:01:05 14:50:54 Visit Kevin Amezquita [facility] [id number] it y of Surgical [id number] Dereck as Specialti [id number] Ak dical es 198 [facility] Results Test Description Test Time Test Comments Results Result Comments Source SARS-COV2/RT-PCR ([facility]) 2020-01-09 07:59:00 Test Item Value Reference Range Interpretation Comme nts SARS-COV2/RT-PCR (test code = 9748458) Not Detected Not Detected, N egative SARS-COV-2 PERFORMING LAB (test code = [facility] [id number]) Negative results do not preclude SARS-CoV-2 infection [...] of the Act.Fact Sheet for Healthcare Pro viders:https://www.[employer]/Documents/Xpert%20Xpress%20SARS%20CoV-2/Fact%20Sh eets/3023802%03VKYN-UYI-2%20HEALTHCARE%20PROVIDERS%20FACT%20SHEET.pdfFact Sheet for Healthcare Patients:https://www.[employer]ar/Documents/Xpert%20Xpress%20SARS%20CoV-2/Fact%20Sheets/3023801%20SARS-COV -2%20PATIENT%20FACT%20SHEET.pdfPerforming Laboratory:[facility], [place] [address]RR ANKLE <3 VW [id number] 19:42:43Good signs of callus formation there has been a slight shift in the mortise but it is set at this point.[facility]
--- NOTE | 2023-05-25 18:31 | RAD REPORT ---
EXAM DESCRIPTION: RADChest Single View05/25/2023 6:06 pm CLINICAL HISTORY: COUGH COMPARISON: Chest Single View dated 06/18/2022; Chest Single View dated 06/17/2022; Chest Single View dated 06/13/2022; Chest Single View dated 06/12/2022; Thorax W/ Con dated 06/17/2022 TECHNIQUE: Portable AP view of the chest. FINDINGS: The lungs are clear. No pneumothorax or effusion. Known left pleural effusion has resolve d. The cardiomediastinal contours are unremarkable. Multiple left rib deformities, related to known displaced rib fractures. IMPRESSION: No acute cardiopulmonary process.
[2023-05-25 18:50] LABS: Hematocrit 38.2 % (39.6-49.0); MPV 6.7 fL (7.6-11.3); Platelets 278 thou/uL (152-406); RBC Red Blood Cell Count 4.15 M/uL (4.33-5.43)
[2023-05-25 18:53] LABS: Protime INR 1.13
[2023-05-25 18:58] LABS: SARS-CoV-2 Antigen Rapid Res Negative (Negative)
[2023-05-25 19:05] LABS: Bilirubin Total 0.7 mg/dL (0.2-1.0); Potassium 3.4 mEq/L (3.5-5.1); Protein, Total 6.4 g/dL (6.4-8.2)
[2023-05-25 19:33] LABS: Blood Morphology Comment NOT SEEN (NOT SEEN); Platelet Estimate ADEQ
[2023-05-25] MEDS ORDERED: LIDOCAINE HCL JELLY 2% 6 ML SYRINGE TOP ONE (22:25)
[2023-05-25 22:35] LABS: Specific Gravity 1.009 (1.005-1.030); Urine Bacteria <20 /HPF (<20); Urine Bilirubin NEGATIVE (Negative); Urine Blood Trace (Negative); Urine Clarity Extremely Turbid (Clear); Urine Color Yellow (Yellow); Urine Crystals Unidentified Few /HPF (None Seen); Urine Glucose NEGATIVE (Negative); Urine Protein TRACE (Negative); Urine Urobilinogen Normal (Normal); Urine WBC Clump Moderate /HPF (None Seen)
--- NOTE | 2023-05-25 22:56 | ER ---
Nurse's Notes [facility] Name: Shawn Gant Age: 77 yrs Sex: Male : 1945 Arrival Date: 05/25/2023 Time: 17:11 Bed 12 Private MD: Diagnosis: UTI/ Urinary tract infection, site not specified;COPD/ Chronic obstructive pulmonary disease with (acute) exacerbation Presentation: 05/25 17:42 Chief complaint: EMS states: toned out for SOB. On arrival patient was diaphoretic, me1 pale and had a temp of 99.7. Reports patient finished antibiotics about a week ago for UTI and his urine continues to have a foul odor. EMS administered A\T\A neb and an albuterol neb tx, 125 mg solumedrol an 975 mg of tylenol. HR 120s, FSBS 104. 18 g to left hand. Coronavirus screen: Vaccine status: Patient reports receiving the 2nd dose of the covid vaccine. Ebola Screen: No symptoms or risks identified at this time. Initial Sepsis Screen: Does the patient meet any 2 criteria? RR > 20 per min. HR > 90 bpm. Yes Does the patient have a suspected source of infection? Yes: Dysuria/Frequency/Urgency/UTI. Risk Assessment: Do you want to hurt yourself or someone else? Patient reports no desire to harm self or others. Onset of symptoms was May 25, 2023. 17:42 Method Of Arrival: EMS: [place] [address] 17:42 Acuity: MRAIO 3 me1 Triage Assessment: 17:47 General: Appears comfortable, well groomed, well developed, well nourished, Behavior is me1 calm, cooperative, appropriate for age, Reports SOB that didn't resolve with o2 or neb tx. States he finished abx for UTI about a week ago but his urine has a foul odor. Pain: Denies pain. Neuro: Level of Consciousness is awake, alert, obeys commands, Oriented to person, place, time, situation, Appropriate for age. Cardiovascular: Capillary refill < 3 seconds Patient's skin is warm and dry. Respiratory: Airway is patent Respiratory effort is even, unlabored, Respiratory pattern is regular, symmetrical. : Reports incontinence, urine has foul odor. Historical: - Allergies: 17:47 Polio Virus Vaccines; me1 - PMHx: 17:47 borderline DM; COPD; Hypertension; me1 - PSHx: 17:47 multiple ortho; me1 - Immunization history:: Adult Immunizations up to date. - Social history:: Smoking status: Patient/guardian denies using tobacco, but has a distant history of tobacco abuse. Screenin:50 [facility] ED Fall Risk Assessment (Adult) History of falling in the last 3 months, me1 including since admission No falls in past 3 months (0 pts) Confusion or Disorientation No (0 pts) Intoxicated or Sedated No (0 pts) Impaired Gait Yes (1 pt) Mobility Assist Device Used Yes (1 pt) Altered Elimination Yes (1 pt) Score/Fall Risk Level 3 or more points = High Risk Maintained a safe environment, Hourly rounding (assess needs \T\ fall precautionary measures) done, Used gait belt as appropriate. Abuse screen: Denies threats or abuse. Nutritional screening: No deficits noted. Tuberculosis screening: No symptoms or risk factors identified. Assessment: 17:50 General: see triage assessment. me1 Vital Signs: 17:42 BP 107 / 74; Pulse 115; Resp 20; Temp 99(O); Pulse Ox 99% on 4 lpm NC; Weight 79.83 kg; me1 Height 5 ft. 11 in. ; Pain 0/10; 18:39 BP 114 / 76; Pulse 100; Resp 20; Pulse Ox 94% on 4 lpm NC; iw 20:30 BP 120 / 81; Pulse 102; Resp 19; Pulse Ox 97% on 4 lpm NC; iw 21:00 BP 115 / 77; Pulse 99; Resp 20; Pulse Ox 98% on 4 lpm NC; iw 21:30 BP 118 / 75; Pulse 94; Resp 20; Pulse Ox 99% on 4 lpm NC; iw 22:00 BP 123 / 80; Pulse 86; Resp 17; Pulse Ox 99% on 4 lpm NC; iw 23:00 BP 108 / 77; Pulse 84; Resp 18; Pulse Ox 99% on 4 lpm NC; iw 17:42 Body Mass Index 24.55 (79.83 kg, 180.34 cm) me1 17:42 Pain Scale: Adult me1 ED Course: 17:14 Patient arrived in ED. ms3 17:14 Praveen Calderón DO is Attending Physician. ms3 17:32 Jolynn Christian, RN is Primary Nurse. me1 17:47 Triage completed. me1 17:47 Arm band placed on Patient placed in an exam room. me1 17:50 Patient has correct armband on for positive identification. Bed in low position. Call me1 light in reach. Side rails up X 1. Provided Education on: POC. Verbalized understanding.. 17:50 No provider procedures requiring assistance completed. Maintain EMS IV. Dressing me1 intact. Good blood return noted. Site clean \T\ dry. Gauge \T\ site: 18 gauge Left hand. 18:08 Chest Single View XRAY In Process Unspecified. EDMS 18:38 SARS RAPID Sent. iw 18:38 Flu Sent. iw 18:38 CBC with Diff Sent. iw 18:38 CMP Sent. iw 18:38 Lactate w/ 2H reflex if indic. Sent. iw 18:38 Protime (+inr) Sent. iw 18:38 Ptt, Activated Sent. iw 21:41 Enoc Pacheco PA is PHCP. cp 21:52 Blood Culture Adult (2) Sent. iw 22:22 Coud inserted, using sterile technique, 16 Fr. Returned cloudy urine. To gravity iw drainage. Urine specimen collected. 22:23 Urinalysis w/ reflexes Sent. iw 22:52 Jack Alarcon MD is Hospitalizing Provider. cp 23:20 Initiated transfer to [facility], spoke with Patrick Kohli. 23:57 Pt accepted for transfer to [facility] Rm: 508 by Chey Piper \T\ 2342 per Patrick Kohli. 05/26 00:46 EMS accepted for transport with ETA \T\ 0100. No more trucks available till after 0300 wm per Todd. 01:28 Patient transferred, IV remains in place. lg3 Administered Medications: 05/25 23:31 Drug: Rocephin IV 1 grams IV at calculated rate once; Given slow IV push per pharmacy iw instructions Route: IV; Rate: calculated rate; Site: left hand; 05/26 00:01 Follow up: Response: No adverse reaction; IV Status: Completed infusion iw Medication: 05/25 17:50 VIS not applicable for this client. ny1 Outcome: 22:56 Decision to Hospitalize by Provider. cp 23:07 ER care complete, transfer ordered by . cp 05/26 01:27 Transferred by ground EMS lg3 Condition: stable Instructed on the need for transfer, Demonstrated understanding of instructions, 01:28 Patient left the ED. lg3 Addendum: 05/28/2023 10:57 Addendum: Culture Results: Positive urine culture. No further action required. Other: james Gupta [employer]IOR DES[employer]AC[employer] MEMBER relayed culture results to the physician caring for him at [facility]. Signatures: Dispatcher [employer] EDSoo Mattson RN RN Enoc Reeves PA PA cp Botello, Elizabeth eb Gibson, Lacie, RN RN lg3 Praveen Calderón DO DO ms3 Carie Garay Jolynn Christian RN RN me1 Corrections: (The following items were deleted from the chart) 05/26 00:51 00:46 [facility] accepted for transport with ETA \T\ 0100 [facility]
--- NOTE | 2023-05-25 22:57 | EDPHYS ---
Physician Documentation [facility] Name: Shawn Gant Age: 77 yrs Sex: Male : 1945 Arrival Date: 05/25/2023 Time: 17:11 Bed 12 Private MD: ED Physician Praveen Calderón HPI: 05/25 17:21 This 77 yrs old Male presents to ER via Unassigned with complaints of Shortness of ms3 breath/fever. 17:21 77-year-old male with past medical history of COPD presents via [facility] for ms3 shortness of breath and fever. EMS notes patient's room air oxygen saturation to be 93 to 94% on their arrival. Patient had expiratory wheezing and was given albuterol/Atrovent. Patient was given 125 mg IV Solu-Medrol. Patient's heart rate 120, temperature nine 9.7. 975 mg Tylenol was given. Patient endorses cough. Patient also notes he recently had a urinary tract infection. Patient states he does do intermittent self cathing. Historical: - Allergies: 17:47 Polio Virus Vaccines; me1 - PMHx: 17:47 borderline DM; COPD; Hypertension; me1 - PSHx: 17:47 multiple ortho; me1 - Immunization history:: Adult Immunizations up to date. - Social history:: Smoking status: Patient/guardian denies using tobacco, but has a distant history of tobacco abuse. ROS: 17:21 Cardiovascular: Negative for chest pain, and palpitations. ms3 17:21 Abdomen/GI: Negative for abdominal pain, nausea, vomiting, diarrhea, and constipation, MS/Extremity: Negative for injury and deformity, Skin: Negative for injury, rash, and discoloration, 17:21 Constitutional: Positive for chills, 17:21 Respiratory: Positive for cough, shortness of breath, 17:21 All other systems are negative, Exam: 17:21 Constitutional: This is a well developed, well nourished patient who is awake, alert, ms3 and in no acute distress. Head/Face: Normocephalic, atraumatic. Chest/axilla: Normal chest wall appearance and motion. Nontender with no deformity. Cardiovascular: Regular rate and rhythm with a normal S1 and S2. No gallops, murmurs, or rubs. Normal PMI, no JVD. No pulse deficits. Respiratory: Lungs have equal breath sounds bilaterally, clear to auscultation and percussion. No rales, rhonchi or wheezes noted. No increased work of breathing, no retractions or nasal flaring. Abdomen/GI: Soft, non-tender, with normal bowel sounds. No distension or tympany. No guarding or rebound. No evidence of tenderness throughout. Skin: Warm, dry with normal turgor. Normal color with no rashes, no lesions, and no evidence of cellulitis. MS/ Extremity: Pulses equal, no cyanosis. Neurovascular intact. Full, normal range of motion. 21:39 ECG was reviewed by the Attending Physician. ms3 Vital Signs: 17:42 BP 107 / 74; Pulse 115; Resp 20; Temp 99(O); Pulse Ox 99% on 4 lpm NC; Weight 79.83 kg; me1 Height 5 ft. 11 in. ; Pain 0/10; 18:39 BP 114 / 76; Pulse 100; Resp 20; Pulse Ox 94% on 4 lpm NC; iw 20:30 BP 120 / 81; Pulse 102; Resp 19; Pulse Ox 97% on 4 lpm NC; iw 21:00 BP 115 / 77; Pulse 99; Resp 20; Pulse Ox 98% on 4 lpm NC; iw 21:30 BP 118 / 75; Pulse 94; Resp 20; Pulse Ox 99% on 4 lpm NC; iw 22:00 BP 123 / 80; Pulse 86; Resp 17; Pulse Ox 99% on 4 lpm NC; iw 23:00 BP 108 / 77; Pulse 84; Resp 18; Pulse Ox 99% on 4 lpm NC; iw 17:42 Body Mass Index 24.55 (79.83 kg, 180.34 cm) me1 17:42 Pain Scale: Adult me1 MDM: 17:14 Patient medically screened. ms3 17:21 Differential diagnosis: pneumonia, Flu vs COVID. ms3 22:55 Data reviewed: vital signs, nurses notes, lab test result(s), EKG, radiologic studies, cp plain films. 22:55 Consideration of Admission/Observation Patient was admitted/placed on observation. 23:55 Management of patient was discussed with the following: Grinder Operator: hospitalist, DR josé miguel Guerrier, \T\[facility] in [facility] will accept patient as transfer due to our facility being at capacity. 11/09 17:18 Order name: Blood Culture Adult (2) ms3 05/25 17:18 Order name: CBC with Diff; Complete Time: 19:46 ms3 05/25 17:18 Order name: CMP; Complete Time: 19:27 ms3 05/25 17:18 Order name: Lactate w/ 2H reflex if indic.; Complete Time: 19:27 ms3 05/25 17:18 Order name: Protime (+inr); Complete Time: 19:27 ms3 05/25 17:18 Order name: Ptt, Activated; Complete Time: 19:27 ms3 05/25 17:18 Order name: Urinalysis w/ reflexes; Complete Time: 22:47 ms3 05/25 22:48 Interpretation: Normal except: [facility] Extremely Turbid; UBLD Trace; UPROT TRACE; UNIT 1+; cp UESTR 500; UWBC >50; URBC 11-20; UWBC Clump Moderate. 05/25 17:23 Order name: Flu; Complete Time: 19:27 ms3 05/25 17:23 Order name: SARS RAPID; Complete Time: 19:27 ms3 05/25 19:08 Order name: Manual Differential; Complete Time: 19:46 EDMS 05/25 22:39 Order name: Urine Culture EDMS 05/25 17:19 Order name: Chest Single View XRAY; Complete Time: 18:40 ms3 05/25 17:18 Order name: EKG; Complete Time: 17:19 ms3 05/25 17:18 Order name: Accucheck; Complete Time: 20:27 ms3 05/25 17:18 Order name: Cardiac monitoring; Complete Time: 20:27 ms3 05/25 17:18 Order name: EKG - Nurse/Tech; Complete Time: 20:27 ms3 05/25 17:19 Order name: IV Saline Lock - Large Bore; Complete Time: 18:38 ms3 05/25 17:19 Order name: Labs collected and sent; Complete Time: 18:38 ms3 05/25 17:19 Order name: O2 Per Protocol; Complete Time: 18:38 ms3 05/25 17:19 Order name: O2 Sat Monitoring; Complete Time: 20:27 ms3 05/25 17:19 Order name: Vital Signs; Complete Time: 20:27 ms3 05/25 21:22 Order name: Straight Cath; Complete Time: 21:52 ms3 EC:39 Rate is 105 beats/min. Rhythm is regular. Left axis deviation noted. MT interval is ms3 normal. QRS interval is normal. Clinical impression: Sinus tachycardia. Interpreted by me. Reviewed by me. Administered Medications: 23:31 Drug: Rocephin IV 1 grams IV at calculated rate once; Given slow IV push per pharmacy iw instructions Route: IV; Rate: calculated rate; Site: left hand; 05/26 00:01 Follow up: Response: No adverse reaction; IV Status: Completed infusion iw Disposition Summary: 05/25/23 23:07 Transfer Ordered Notes: Transfer Location: [facility] cp Reason: Higher level of care cp Condition: Stable(05/25/23 23:07) cp Problem: new(05/25/23 23:07) cp Symptoms: have improved(05/25/23 23:07) cp Accepting Physician: DR Guerrier(05/26/23 01:28) lg3 Diagnosis - UTI/ Urinary tract infection, site not specified(05/25/23 23:07) cp - COPD/ Chronic obstructive pulmonary disease with (acute) exacerbation(05/25/23 cp 23:07) Forms: - Medication Reconciliation Form cp - SBAR form cp Addendum: 05/27/2023 19:34 I was immediately available on-site in the Emergency Department for consultation in the m s3 care of the patient. Signatures: Dispatcher [employer] Soo Horowitz RN RN iw Enoc Pacheco PA PA cp Gibson, Lacie RN RN lg3 Praveen Calderón DO DO ms3 Jolynn Christian RN RN me1 Corrections: (The following items were deleted from the chart) 05/25 23:06 22:56 Inpatient Admission cp cp 23:06 22:56 Jack Alarcon cp cp 23:06 22:56 Telemetry/MedSurg (Inpatient) cp cp 23:06 22:56 Stable cp cp 23:06 22:56 new cp cp 23:06 22:56 have improved cp cp 23:06 22:56 Standard cp cp 23:06 22:56 cp cp 23:06 22:56 UTI/ Urinary tract infection, site not specified cp cp 23:06 22:56 COPD/ Chronic obstructive pulmonary disease with (acute) exacerbation jsoé miguel valdez 05/26 00:33 05/25 23:55 Management of patient was discussed with the following: Grinder Operator: josé miguel hospitalist \T\ [facility] will accept patient as transfer due to our facility being at capacity. josé miguel 05/26 00:34 05/25 23:07 Doctor josé miguel valdez 05/26 01:28 00:34 DR Chey valdez lg3
[2023-05-25] MEDS ORDERED: CEFTRIAXONE 1000 MG/VIAL ONE (23:35)
[2023-05-26 01:36] VITALS: TEMP 99
[2023-05-26 01:43] VITALS: O2SAT 99
[2023-05-26 01:46] VITALS: BP 108/77
--- NOTE | 2023-05-27 14:12 | EKG ---
Test Date: 2023-05-25 Test Time: 20:41:51 Neurology Physician: MEASUREMENT RESULTS: Intervals: Rate: 105 NC: 184 QRSD: 88 QT: 354 QTc: 467 [place]: P: 67 NC: 184 QRS: -49 T: 54 INTERPRETIVE STATEMENTS: Sinus tachycardia Left axis deviation Anterior infarct, age undetermined Abnormal ECG Compared to ECG 06/12/2022 22:50:07 Left-axis deviation now present Myocardial infarct finding now present Sinus rhythm no longer present Electronically Signed On 05-27-23 14:07:47 [employer] by Demetrio Aguilar
== END 2023-05-26 01:28 | disposition short-term general hospital (02) ==
LOC: ER 17:11
DX: N39.0 Urinary tract infection, site not specified (principal); J44.1 Chronic obstructive pulmonary disease with (acute) exacerbation; R73.03 Prediabetes; I10 Essential (primary) hypertension; Z11.52 Encounter for screening for COVID-19; Z88.7 Allergy status to serum and vaccine
CPT/HCPCS: 96365; 93005; 87040 ×2; 87088; 85025; 81001; 87086; 36415; 85610; 83605; 85730; 87077; 87186; 80053; 87804 ×2; 71045; 99285; 87811; J0696

== ENCOUNTER 2023-06-12 17:23 | Emergency (ER) | payer OTHER ==
--- OUTSIDE RECORDS SUMMARY | 2023-06-12 17:27 | XMS REPORT | Continuity of Care Document ---
:1945 Author Organization [facility] t Address [address] [place] [address] Care Team Providers Name Role Phone SAMIR MUNOZ Attending Clinician Unavailable Goldfarb_R Attending Clinician Unavailable Everardo Castillo DO Attending Clinician Mikey Cormier MD Attending Clinician MIKEY CORMIER Attending Clinician Unavailable EVERARDO CASTILLO Attending Clinician Unavailable SANTANA WILLIS Attending Clinician Unavailable YAMILET FOSS Attending Clinician Unavailable Luca Skelton MD Attending Clinician CHANDNI REHMAN Attending Clinician Unavailable Yan Church MD Attending Clinician Kevin Ashford Attending Clinician SAMIR MUNOZ Admitting Clinician Unavailable Goldfarb_R Admitting Clinician Unavailable MIKEY CORMIER Admitting Clinician Unavailable CHANDNI REHMAN Admitting Clinician Unavailable Payers Payer Name Policy Type Policy Number Effective Date Expiration Date Alirio collier [employer] [id number] 2012 SUPPLEMENT 00:00:00 MEDICARE A B [id number] 2012 00:00:00 MEDICARE B-[place]: [id number] 2012 [employer] 00:00:00 [employer] INS [id number] 2012 COMPANIES - PLAN F 00:00:00 (MEDICARE SUPPLEMENT) Problems Condition Condition Condition Status Onset Resolution Last Treating Co mments Source Name Details Category Date Date Treatment Clinician Date Acute Acute Disease Active 2022-[address] [facility]is [facility]stitis [facility] without without 00:00: Medical hematuria hematuria 00 Cent er Bilateral Bilateral Disease Active Uni vers knee pain knee pain 3-09 ity of 00:00: [place] 00 Medical Branch Right hip Right hip Disease Active Uni vers pain pain 3-09 ity of 00:00: [place] 00 Medical Branch Allergies, Adverse Reactions, Alerts Allergy Allergy Status Severity Reaction(s) Onset Inactive Treating Comm ents Source Name Type Date Date Clinician Polio Allergy Active Rash [place] Virus to 6-25 Health Vaccine substanc 00:00: Live e 00 Oral Trivalen t Polio Propensi Active Rash Univers Virus ty to 6-18 ity of Vaccines adverse 00:00: [place] reaction 00 Medical s to Branch drug NO KNOWN Allergy Active [facility] Social History Social Habit Start Date Stop Date Quantity Comments Source Alcohol Comment Occasional [facility] Sexual orientation [facility] Exposure to 2023-05-16 2023-05-26 Not sure [facility] SARS-CoV-2 (event) 00:00:00 02:37:00 Medica l Center History of Social 2023-05-26 2023-05-26 [facility] function 00:00:00 00:00:00 Medical Center Tobacco use and 2023-05-26 2023-05-26 Smokeless tobacco [facility] exposure 00:[facility]:00 00:00:00 non-user Medical Center Alcohol intake 2023-05-26 2023-05-26 Current drinker [facility] S jose alberto Acosta 00:00:00 00:00:00 of alcohol Medical Center (finding) Cigarettes smoked 2019-01-30 2019-01-30 Univers ity of current (pack per 00:00:00 00:00:00 [facility] ) - Reported Branch Tobacco Comment 2015-09-23 2015-09-23 Has one month Univer sity of 00:00:00 00:00:00 since no smoking. [facility] History of tobacco 2013-05-17 [facility] sm[facility] use [facility] Sex Assigned At [address] [facility]anda kes 00:00:00 00:00:00 Medical Center Smoking Status Start Date Stop Date Source Tobacco smoking [facility] consumption unknown Ex-smoker 2023-05-26 00:00:00 2023-05-[address] [facility] 00:00:00 Center Current some day smoker 2019-01-30 00:00:00 [facility] Medications Ordered Filled Start Stop Current Ordering Indication Dosage Frequency Signature Comments Components Source Medication Medication Date Date Medication? Clinician (SIG) Name Name diclofenac 2022-07 Yes 50mg QD Take 1 [facility] (VOLTAREN) 1-13 tablet (50 Clair es 50 MG EC 10:58: mg total) Medi lawanda tablet 19 by mouth Center daily. PARoxetine 2022-07 Yes 40mg QD Take 1 [facility] t (PAXIL) 40 1-13 tablet (40 Clair es MG tablet 10:58: mg total) Med ical 19 by mouth Center every morning. aspirin 81 2022-07 Yes 81mg QD Take 1 [facility] t MG EC 1-13 tablet (81 [facility] tablet 10:58: mg total) Medica l 19 by mouth Center daily. tamsulosin 2022-07 Yes .4mg QD Take 1 [facility] t (FLOMAX) 1-13 capsule [facility] 0.4 mg Cap 10:58: (0.4 mg Medi lawanda 24 hr 19 total) by Center capsule mouth daily. montelukast 2022-07 Yes 10mg QD Take [address] (SINGULAIR) 1-13 tablet (10 Manda kes 10 mg 10:58: mg total) Medical tablet 19 by mouth Center nightly. sotaloL 2022-07 Yes 80mg Q.5D Take [address] (BETAPACE) 1-13 tablet (80 Clair es 80 MG 10:58: mg total) Medical tablet 19 by mouth 2 Center (two) times daily. finasteride 2022-07 Yes 5mg QD Take [address] (PROSCAR) 5 -13 tablet (5 Clair es mg tablet 10:58: mg total) Med ical 19 by mouth Center daily. sulfamethox 2022-07 No 160mg{t Q.5D Take [address] azole-trime 07-29 11-20 rimetho tablet Manda kes thoprim 00:00: 23:59 prim} (160 mg of Me dical (BACTRIM 00 :00 trimethopr Cente r DS) 800-160 im total) mg per by mouth 2 tablet (two) times daily for 7 days. predniSONE 2022-07 No 50mg QD Take [address] (DELTASONE) 07-2916 tablet (50 L ukes 50 MG 00:00: 23:59 mg total) Medica l tablet 00 :00 by mouth Center daily for 3 days. albuterol-i 2022-07- Yes 2{puff} Inhale [address] pratropium -12 02-10 puffs by Luke s (Combivent 00:00: 23:59 mouth via M edical Respimat) 00 :00 inhaler Center 20-100 every 6 mcg/actuati (six) on Mist hours as inhaler needed for Wheezing for up to 90 days. budesonide 2022-07- Yes 1{puff} Q.5D Inhale [address] (PULMICORT) 07-28 02-10 puff by Luke s 90 00:00: 23:59 mouth via Medical mcg/actuati 00 :[address] on inhaler (two) times daily for 90 days. methocarbam 2022-07 No 500mg [id number] Take [address] oL 07-28 [id number] tablet [facility] (ROBAXIN) 00:00: 23:59 3D (500 mg Medi lawanda 500 MG 00 :00 total) by Center tablet mouth 3 (three) times daily for 10 days. sulfamethox 2022-07- No 160mg{t Q.5D Take [address] azole-trime 07-28 rimetho tablet Manda kes thoprim 00:00: 00:00 prim} (160 mg of Me dical (BACTRIM 00 :00 trimethopr Cente r DS) 800-160 im total) mg per by mouth 2 tablet (two) times daily for 4 days. acetaminoph Yes [id number] 1{tbl} Take 1 Univers en-codeine 7-10 tablet by ity of (TYLENOL-CO 00:00: mouth [place] DEINE #3) 00 every 4 Medical 300-30 mg (four) Branch tablet hours as needed for Pain (scale 4-6) or Pain (scale 7-10). acetaminoph Yes [id number] 1{tbl} Take 1 Univers en-codeine 7-10 tablet by ity of (TYLENOL-CO 00:00: mouth [place] DEINE #3) 00 every 4 Medical 300-30 mg (four) Branch tablet hours as needed for Pain (scale 4-6) or Pain (scale 7-10). acetaminoph Yes [id number] 1{tbl} Take 1 Univers en-codeine 7-10 tablet by ity of (TYLENOL-CO 00:00: mouth [place] DEINE #3) 00 every 4 Medical 300-30 mg (four) Branch tablet hours as needed for Pain (scale 4-6) or Pain (scale 7-10). acetaminoph Yes [id number] 1{tbl} Take 1 Univers en-codeine 7-10 tablet by ity of (TYLENOL-CO 00:00: mouth [place] DEINE #3) 00 every 4 Medical 300-30 mg (four) Branch tablet hours as needed for Pain (scale 4-6) or Pain (scale 7-10). acetaminoph Yes [id number] 1{tbl} Take 1 Univers en-codeine 7-10 tablet by ity of (TYLENOL-CO 00:00: mouth [place] DEINE #3) 00 every 4 Medical 300-30 mg (four) Branch tablet hours as needed for Pain (scale 4-6) or Pain (scale 7-10). DICLOFENAC Yes TAKE 1 Unive rs 75 mg EC 1-30 TABLET BY ity of tablet 00:00: MOUTH [place] 00 TWICE A Medical DAY Branch DICLOFENAC 2017-0 Yes TAKE 1 Unive rs 75 mg [...] [place] 00 TWICE A Medical DAY Branch montelukast Yes 10mg Take 10 mg Univers [...] Branch irbesartan Yes 300mg Take 300 Un luaren (AVAPRO) 6-23 mg by ity of 300 [...] Medical 250-50 daily. Branch mcg/dose inhalation disk acetaminoph Yes 1{tbl} Take 1 Tab Univers [...] Name Observation Time Observation Value Comments Source HEIGHT 2023-05-26 02:40:00 180.3 cm WEIGHT 2023-05-26 02:40:00 82.101 kg HEIGHT 2023-05-26 02:40:00 180.3 cm WEIGHT 2023-05-26 02:40:00 82.101 kg HEIGHT 2023-05-26 02:40:00 180.3 cm WEIGHT 2023-05-26 02:40:00 82.101 kg Systolic blood 2019-03-13 19:06:00 125 mm[Hg] Univer [facility] of pressure [place] [facility] Diastolic blood 2019-03-13 19:06:00 79 mm[Hg] Unive rsity of pressure [facility] Heart rate 2019-03-13 19:06:00 106 /min [facility] [place] [facility] Respiratory rate 2019-03-13 19:06:00 18 /min [facility] Body height 2019-03-13 19:06:00 180.3 cm [facility] [place] [facility] [place] Body weight 2019-03-13 19:06:00 90.719 kg [facility] [place] [facility] BMI 2019-03-13 19:06:00 27.89 kg/m2 [facility] [place] [facility] Systolic blood 2019-03-13 19:06:00 125 mm[Hg] Univer sity of pressure [place] [facility] Diastolic blood 2019-03-13 19:06:00 79 mm[Hg] Unive rsity of pressure [facility] Heart rate 2019-03-13 19:06:00 106 /min [facility] [place] [facility] [place] Respiratory rate 2019-03-13 19:06:00 18 /min Univ [facility] [place] [facility] [place] Body height 2019-03-13 19:06:00 180.3 cm [facility] [place] [facility] Body weight 2019-03-13 19:06:00 90.719 kg [facility] [place] [facility] BMI 2019-03-13 19:06:00 27.89 kg/m2 [facility] [place] [facility] [place] Systolic blood 2023-05-29 08:00:00 178 mm[Hg] [facility] Diastolic blood 2023-05-29 08:00:00 91 mm[Hg] [facility] S [facility] Heart rate 2023-05-29 08:00:00 58 /min [facility] Body temperature 2023-05-29 08:00:00 35.83 Briana [facility] Respiratory rate 2023-05-29 08:00:00 18 /min [facility] Oxygen saturation in 2023-05-29 08:00:00 96 /min [facility] Arterial blood by Medical Ce nter Pulse oximetry Body height 2023-05-26 02:40:00 180.3 cm [facility] Body weight 2023-05-26 02:40:00 82.101 kg [facility] BMI 2023-05-26 02:40:00 25.24 kg/m2 [facility] Procedures Procedure Date / Time Performing Clinician Source Performed POCT-GLUCOSE METER 2023-05-29 07:38:00 Genia [facility] CBC W/PLT COUNT & AUTO 2023-05-29 04:25:00 [facility] W/PLT COUNT & AUTO 2023-05-29 04:25:00 Everardo Castillo [facility] POCT-GLUCOSE METER 2023-05-28 20:18:00 Genia [facility] POCT-GLUCOSE METER 2023-05-28 15:53:00 Genia, [facility] POCT-GLUCOSE METER 2023-05-28 11:22:00 Genia [facility] POCT-GLUCOSE METER 2023-05-28 [facility] 2023-05-28 04:49:00 Everardo Castillo [facility] CBC W/PLT COUNT & AUTO 2023-05-28 04:49:00 Chey Everardo [facility] CBC W/PLT COUNT & AUTO 2023-05-28 04:49:00 [facility] POCT-GLUCOSE METER 2023-05-27 19:44:00 Genia [facility] POCT-GLUCOSE METER 2023-05-27 15:48:00 Genia, [facility] POCT-GLUCOSE METER 2023-05-27 11:49:00 Genia, [facility] POCT-GLUCOSE METER 2023-05-27 07:41:00 Genia, [facility] BASIC METABOLIC PANEL 2023-05-27 05:32:00 Chey Everardo [facility] CBC W/PLT COUNT & AUTO 2023-05-27 05:32:00 [facility] CBC W/PLT COUNT & AUTO 2023-05-27 05:32:00 [facility] POCT-GLUCOSE METER 2023-05-26 19:55:00 Genia [facility] POCT-GLUCOSE METER 2023-05-26 18:00:00 Genia [facility] BASIC METABOLIC PANEL 2023-05-26 05:46:00 Chey Everardo [facility] MAGNESIUM 2023-05-26 05:46:00 Chey [facility] CBC W/PLT COUNT & AUTO 2023-05-26 05:46:00 Chey Everardo [facility] DIFFERENTIAL Center CBC W/PLT COUNT & AUTO 2023-05-26 05:46:00 Chey, [facility] EKG-SCANNED 2023-05-26 00:00:00 [facility] XR ANKLE <3 VW LEFT 2019-03-13 19:17:48 Kevin Serna [facility] Plan of Care Planned Activity Planned Date Details Comments Source Future Scheduled 2024-05-[address] [facility] Test 00:00:00 Counseling and Medical Cente r Screening (12+) [code = Tobacco Cessation Counseling and Screening (12+)] Future Scheduled 2023-03-17 Influenza Vaccine (#1) [facility] 00:00:00 [code = Influenza Medical Ce nter Vaccine (#1)] Future Scheduled 2022-07-[address] [facility] Test 00:00:00 (12+) [code = Medical Center DEPRESSION SCREENING (12+)] Future Scheduled 2022-07-17 FALLS RISK SCREENING [facility] Test 00:00:00 [code = FALLS RISK Medical C enter SCREENING] Future Scheduled 2013-06-[address] [facility] Test 00:00:00 WELLNESS (YEAR 2 or Medical Center FIRST YEAR if no IPPE) [code = MEDICARE ANNUAL WELLNESS (YEAR 2 or FIRST YEAR if no IPPE)] Future Scheduled [address] [facility] Test 00:00:00 aneurysm screening Medical C enter (procedure) [code = 004386260] Future Scheduled 1997 SHINGLES VACCINES ([address] [facility] Test 00:00:00 2) [code = SHINGLES Medical Center VACCINES (1 of 2)] Future Scheduled 1966 DTAP/TDAP/TD VACCINES [facility] Test 00:00:00 (1 - Tdap) [code = Medical C enter DTAP/TDAP/TD VACCINES (1 - Tdap)] Future Scheduled 1965 HEPATITIS C SCREENING [facility] Test 00:00:00 [code = HEPATITIS C Medical Center SCREENING] Future Scheduled 1953 PNEUMOCOCCAL 65+ YRS ([address] [facility] Test 00:00:00 - PCV) [code = Medical Cente r PNEUMOCOCCAL 65+ YRS (1 - PCV)] Future Scheduled 1948-01-11 COVID-19 VACCINE (#1) [facility] Test 00:00:00 [code = COVID-[address] VACCINE (#1)] Future Scheduled 1947 CT Colonography (combo) [facility] Test 00:00:00 [code = CT Colonography [facility] (combo)] Future Scheduled 1947 Screening for malignant [facility] Test 00:00:00 neoplasm of colon Medical Ce nter (procedure) [code = 607766387] Future Scheduled 1947 Screening for malignant [facility] Test 00:00:00 neoplasm of colon Medical Ce nter (procedure) [code = 790367006] Future Scheduled 1947 Screening for malignant [facility] Test 00:00:00 neoplasm of colon Medical Ce nter (procedure) [code = 500745985] Future Scheduled 1947 Screening for malignant [facility] Test 00:00:00 neoplasm of colon Medical Ce nter (procedure) [code = 452541723] Future Scheduled 1945 Sigmoidoscopy [code = [facility] Test 00:00:00 Sigmoidoscopy] Medical Cente r Encounters Start End Encounter Admission Attending Care Care Encounter Source Date/Time Date/Time Type Type Clinicians Facility Department ID 2022-07-20 Outpatient [facility] [id number] [place] 06:41:42 [id number] [facility] 2022-07-07 Outpatient [facility] [id number] [place] 15:52:21 [id number] [facility] 2022-07-05 Outpatient [facility] [id number] [place] 15:12:02 [id number] [facility] 2022-06-29 Outpatient [facility] [id number] [place] 06:49:39 [id number] [facility] 2022-06-17 Inpatient NGOZI MUNOZ [facility] Surgery [id number] [facility] 19[facility]53:27 [facility] 2023-06-01 2023-06-01 Outpatient Goldfarb_R U [facility] [id number] [facility]202 [place] 00:00:00 00:00:00 [id number] [facility] 2023-05-26 2023-05-29 [facility] Chey Everardo Laisus [facility] [id number] [facility] 02:16:00 10:58:00 Encounter [facility]ia [facility] 2023-05-26 2023-05-29 Inpatient GENIA, [facility] [id number] [facility] 02:16:00 10:58:00 [facility] 2023-05-26 2023-05-26 Travel [facility] [id number] [facility] 00:[facility]00 00:00:00 [facility] 2022-07-26 2022-07-26 Outpatient ALBA [facility] [id number] [facility] 12:51:00 23:59:00 SANTANA 2022-07-20 2022-07-20 Outpatient PIPO [facility] [id number] [place] 11:00:00 11:00:00 YAMILET Healjose alberto 2022-07-07 2022-07-07 Office [place], [facility] [id number] [place] 15:45:00 16:48:07 Visit Luca AGUILAR [id number] H shailesh LOY [id number] [facility] [id number] 2022-06-18 2022-06-24 Inpatient Joselito REHMAN [facility] [id number] [facility] 13:52:00 22:44:00 CHANDNI 2019-03-29 2019-03-[address] [facility] [id number] [facility] 00:00:00 00:00:00 [facility] [id number] it y of Surgical [id number] Dereck as Specialti [id number] Me dical es 198 [facility] 2019-03-29 2019-03-[address] [facility] [id number] 00:00:00 00:00:00 [facility] [id number] Surgical [id number] Specialti [id number] es 198 [place] 2019-03-13 2019-03-13 [facility] [id number] Univers 14:17:47 23:59:00 Encounter Kevin [facility] [id number] ity of Surgical [id number] Dereck as Specialti [id number] Me dical es 809 [facility] 2019-03-13 2019-03-13 [facility] [id number] 14:17:47 23:59:00 Encounter Kevin [facility] [id number] Surgical [id number] Specialti [id number] es 809 [place] 2019-03-13 2019-03-13 Office [facility] [id number] [facility] 14:01:05 14:50:54 Visit Kevin [facility] [id number] it y of Surgical [id number] Dereck as Specialti [id number] Me dical es 198 [facility] 2019-03-13 2019-03-13 Office [facility] [id number] 14:01:05 14:50:54 Visit Kevin [facility] [id number] Surgical [id number] Specialti [id number] es 198 [place] Results Test Description Test Time Test Comments Results Result Comments Source POC-Glucose meter 2023-05-29 07:50:27 Test Item Value Reference Range Interpretation Comme nts POC-Glucose Meter (test code = 81 mg/dL 70-110 : TESTED AT [facility] [address]) [facility] [address]: Senior Solutions Engineer/Techni ace ID = [id number] for Latasha Ortez Lab Interpretation (test code = Normal 05890-7) [facility] [id number] 07:50:27 Test Item Value Reference Range Interpretation Comments POC-GLUCOSE METER 81 mg/dL 70-110 : TESTED A T [facility] [address] (BEAKER) (test code = [address]) [facility] [place] [address]: Senior Solutions Engineer/Techni ace ID = [id number] for Latasha Bonilla CBC W/PLT COUNT & AUTO [id number] 05:07:11 Test Item Value Reference Range Interpretation Comments WHITE BLOOD CELL COUNT (BEAKER) 9.4 K/ L 4.0-10.0 (test code = 775) RED BLOOD CELL COUNT (BEAKER) 4.07 M/ L 4.20-5.80 L (test code = 761) HEMOGLOBIN (BEAKER) (test code = 12.9 GM/DL 13.0-16.8 L 410) HEMATOCRIT (BEAKER) (test code = 37.0 % 36.0-50.0 411) MEAN CORPUSCULAR VOLUME (BEAKER) 91 fL 82-99 (test code = 753) MEAN CORPUSCULAR HEMOGLOBIN 31.7 pg 27.0-33.0 (BEAKER) (test code = 751) MEAN CORPUSCULAR HEMOGLOBIN CONC 34.9 GM/DL 32.0-36.0 (BEAKER) (test code = 752) RED CELL DISTRIBUTION WIDTH 13.0 % 12.0-15.0 (BEAKER) (test code = 412) PLATELET COUNT (BEAKER) (test 310 K/CU MM 150-430 code = 756) MEAN PLATELET VOLUME (BEAKER) 9.0 fL 6.0-11.5 (test code = 754) NUCLEATED RED BLOOD CELLS 0 /100 WBC 0-0 (BEAKER) (test code = 413) NEUTROPHILS RELATIVE PERCENT 66 % (BEAKER) (test code = 429) LYMPHOCYTES RELATIVE PERCENT 23 % (BEAKER) (test code = 430) MONOCYTES RELATIVE PERCENT 10 % (BEAKER) (test code = 431) EOSINOPHILS RELATIVE PERCENT 0 % (BEAKER) (test code = 432) BASOPHILS RELATIVE PERCENT 0 % (BEAKER) (test code = 437) NEUTROPHILS ABSOLUTE COUNT 6.22 K/ L 1.80-8.00 (BEAKER) (test code = 670) LYMPHOCYTES ABSOLUTE COUNT 2.14 K/ L 1.48-4.50 (BEAKER) (test code = 414) MONOCYTES ABSOLUTE COUNT (BEAKER) 0.96 K/ L 0.00-1.30 (test code = 415) EOSINOPHILS ABSOLUTE COUNT 0.03 K/ L 0.00-0.50 (BEAKER) (test code = 416) BASOPHILS ABSOLUTE COUNT (BEAKER) 0.01 K/ L 0.00-0.20 (test code = 417) IMMATURE GRANULOCYTES-RELATIVE 0.50 % 0.00-0.00 H PERCENT (BEAKER) (test code = 2801) POCT-GLUCOSE [id number] 20:30:20 Test Item Value Reference Range Interpretation Comments POC-GLUCOSE METER 131 mg/dL 70-110 H : TESTED A T [facility] (BEAKER) (test code [facility], = 1538) [place] [id number]: Senior Solutions Engineer/Techni ace ID = [id number] for Magy Fall POCT-GLUCOSE [id number] 16:04:33 Test Item Value Reference Range Interpretation Comments POC-GLUCOSE METER 195 mg/dL 70-110 H : TESTED A T [facility] (BEAKER) (test code [facility], = 1538) [place] [id number]: Senior Solutions Engineer/Techni ace ID = [id number] for Sanchez zhao, Latasha POCT-GLUCOSE [id number] 11:33:43 Test Item Value Reference Range Interpretation Comments POC-GLUCOSE METER 171 mg/dL 70-110 H : TESTED A T [facility] [address] (BEAKER) (test code [facility], = 1538) [place] [id number]: Senior Solutions Engineer/Techni ace ID = [id number] for Sanchez zhao, Latasha POCT-GLUCOSE [id number] 07:33:51 Test Item Value Reference Range Interpretation Comments POC-GLUCOSE METER 83 mg/dL 70-110 : TESTED A T [facility] [address] (BEAKER) (test code = [address]) [facility] [address]: Senior Solutions Engineer/Techni ace ID = [id number] for Latasha Bonilla BASIC METABOLIC [id number] 05:24:49 Test Item Value Reference Range Interpretation Comments SODIUM (BEAKER) 133 meq/L 135-148 L (test code = 381) POTASSIUM 3.6 meq/L 3.6-5.5 (BEAKER) (test code = 379) CHLORIDE (BEAKER) 100 meq/L 98-106 (test code = 382) CO2 (BEAKER) 21 meq/L 20-29 (test code = 355) BLOOD UREA 8 mg/dL 10-26 L NITROGEN (BEAKER) (test code = 354) CREATININE 0.60 mg/dL 0.50-1.20 (BEAKER) (test code = 358) GLUCOSE RANDOM 108 mg/dL 70-110 (BEAKER) (test code = 652) CALCIUM (BEAKER) 8.0 mg/dL 8.5-10.5 L (test code = 697) EGFR (BEAKER) 99 Interpretatio n of eGFR (test code = mL/min/1.73 values Stage De scription 1092) sq m Result G1 Neyda l or high >=90 G2 Mildly decreased 60-89 G3a Mildl y to moderately 45-5 9 G3b Moderately to s everely 30-44 G4 Severl y decreased 15-29 G5 Kidney failure <15Reported eGF R is based on the CKD-EPI 2020 equation that d oes not use a race coefficientEsti mated GFR is not as accur ate as Creatinine Marleny mcdonnell in predicting glom erular filtration rate . Estimated GFR is not appl icable for dialysis patien ts Senior Solutions Engineer ID - LITOOperator ID - LITOOperator ID - LITOOperator ID - LITOOperator ID - LITOOperator ID - LITOOperator ID - LITOOperator ID - LITOOperator ID - LITOOperator ID - LITOOperator ID - LITOOperator ID - LITOCBC W/PLT COUNT & AUTO [id number] 05:05:56 Test Item Value Reference Range Interpretation Comments WHITE BLOOD CELL COUNT (BEAKER) 7.7 K/ L 4.0-10.0 (test code = 775) RED BLOOD CELL COUNT (BEAKER) 3.90 M/ L 4.20-5.80 L (test code = 761) HEMOGLOBIN (BEAKER) (test code = 12.3 GM/DL 13.0-16.8 L 410) HEMATOCRIT (BEAKER) (test code = 34.9 % 36.0-50.0 L 411) MEAN CORPUSCULAR VOLUME (BEAKER) 90 fL 82-99 (test code = 753) MEAN CORPUSCULAR HEMOGLOBIN 31.5 pg 27.0-33.0 (BEAKER) (test code = 751) MEAN CORPUSCULAR HEMOGLOBIN CONC 35.2 GM/DL 32.0-36.0 (BEAKER) (test code = 752) RED CELL DISTRIBUTION WIDTH 13.2 % 12.0-15.0 (BEAKER) (test code = 412) PLATELET COUNT (BEAKER) (test 295 K/CU MM 150-430 code = 756) MEAN PLATELET VOLUME (BEAKER) 9.2 fL 6.0-11.5 (test code = 754) NUCLEATED RED BLOOD CELLS 0 /100 WBC 0-0 (BEAKER) (test code = 413) NEUTROPHILS RELATIVE PERCENT 76 % (BEAKER) (test code = 429) LYMPHOCYTES RELATIVE PERCENT 14 % (BEAKER) (test code = 430) MONOCYTES RELATIVE PERCENT 10 % (BEAKER) (test code = 431) EOSINOPHILS RELATIVE PERCENT 0 % (BEAKER) (test code = 432) BASOPHILS RELATIVE PERCENT 0 % (BEAKER) (test code = 437) NEUTROPHILS ABSOLUTE COUNT 5.77 K/ L 1.80-8.00 (BEAKER) (test code = 670) LYMPHOCYTES ABSOLUTE COUNT 1.10 K/ L 1.48-4.50 L (BEAKER) (test code = 414) MONOCYTES ABSOLUTE COUNT (BEAKER) 0.73 K/ L 0.00-1.30 (test code = 415) EOSINOPHILS ABSOLUTE COUNT 0.00 K/ L 0.00-0.50 (BEAKER) (test code = 416) BASOPHILS ABSOLUTE COUNT (BEAKER) 0.01 K/ L 0.00-0.20 (test code = 417) IMMATURE GRANULOCYTES-RELATIVE 0.50 % 0.00-0.00 H PERCENT (BEAKER) (test code = 2801) POCT-GLUCOSE [id number] 19:55:31 Test Item Value Reference Range Interpretation Comments POC-GLUCOSE METER 203 mg/dL 70-110 H : TESTED A T [address] (BEAKER) (test code [address], = 1538) [place] [id number]: Senior Solutions Engineer/Techni ace ID = [id number] for Magy Fall POCT-GLUCOSE [id number] 15:59:37 Test Item Value Reference Range Interpretation Comments POC-GLUCOSE METER 100 mg/dL 70-110 : TESTED A T [address] (BEAKER) (test code [address], = 1538) [place] [id number]: Senior Solutions Engineer/Techni ace ID = [id number] for Candice la, Smiley POCT-GLUCOSE [id number] 12:00:57 Test Item Value Reference Range Interpretation Comments POC-GLUCOSE METER 100 mg/dL 70-110 : TESTED A T [address] (BEAKER) (test code [address], = 1538) [place] [id number]: Senior Solutions Engineer/Techni ace ID = [id number] for Candice la, Smiley POCT-GLUCOSE [id number] 07:52:28 Test Item Value Reference Range Interpretation Comments POC-GLUCOSE METER 88 mg/dL 70-110 : TESTED A T [address] (BEAKER) (test code = [address], 1538) [place] [id number]: Senior Solutions Engineer/Techni ace ID = [id number] for Candice la, Smiley BASIC METABOLIC [id number] 06:14:29 Test Item Value Reference Range Interpretation Comments SODIUM (BEAKER) 131 meq/L 135-148 L (test code = 381) POTASSIUM 3.6 meq/L 3.6-5.5 (BEAKER) (test code = 379) CHLORIDE (BEAKER) 98 meq/L 98-106 (test code = 382) CO2 (BEAKER) 24 meq/L 20-29 (test code = 355) BLOOD UREA 13 mg/dL 10-26 NITROGEN (BEAKER) (test code = 354) CREATININE 0.78 mg/dL 0.50-1.20 (BEAKER) (test code = 358) GLUCOSE RANDOM 102 mg/dL 70-110 (BEAKER) (test code = 652) CALCIUM (BEAKER) 8.6 mg/dL 8.5-10.5 (test code = 697) EGFR (BEAKER) 93 Interpretatio n of eGFR (test code = mL/min/1.73 values Stage De scription 1092) sq m Result G1 Neyda l or high >=90 G2 Mildly decreased 60-89 G3a Mildl y to moderately 45-5 9 G3b Moderately to s everely 30-44 G4 Severl y decreased 15-29 G5 Kidney failure <15Reported eGF R is based on the CKD-EPI 2020 equation that d oes not use a race coefficientEsti mated GFR is not as accur ate as Creatinine Marleny kecia in predicting glom erular filtration rate . Estimated GFR is not appl icable for dialysis patien ts Senior Solutions Engineer ID - [id number] ID - [id number] ID - [id number] ID - [id number] ID - [id number] ID - [id number] ID - [id number] ID - [id number] ID - [id number] ID - [id number] ID - [id number] ID - [id number] W/PLT COUNT & AUTO [id number] 05:52:10 Test Item Value Reference Range Interpretation Comments WHITE BLOOD CELL COUNT (BEAKER) 11.0 K/ L 4.0-10.0 H (test code = 775) RED BLOOD CELL COUNT (BEAKER) 4.22 M/ L 4.20-5.80 (test code = 761) HEMOGLOBIN (BEAKER) (test code = 13.1 GM/DL 13.0-16.8 410) HEMATOCRIT (BEAKER) (test code = 38.5 % 36.0-50.0 411) MEAN CORPUSCULAR VOLUME (BEAKER) 91 fL 82-99 (test code = 753) MEAN CORPUSCULAR HEMOGLOBIN 31.0 pg 27.0-33.0 (BEAKER) (test code = 751) MEAN CORPUSCULAR HEMOGLOBIN CONC 34.0 GM/DL 32.0-36.0 (BEAKER) (test code = 752) RED CELL DISTRIBUTION WIDTH 13.5 % 12.0-15.0 (BEAKER) (test code = 412) PLATELET COUNT (BEAKER) (test 291 K/CU MM 150-430 code = 756) MEAN PLATELET VOLUME (BEAKER) 9.2 fL 6.0-11.5 (test code = 754) NUCLEATED RED BLOOD CELLS 0 /100 WBC 0-0 (BEAKER) (test code = 413) NEUTROPHILS RELATIVE PERCENT 77 % (BEAKER) (test code = 429) LYMPHOCYTES RELATIVE PERCENT 12 % (BEAKER) (test code = 430) MONOCYTES RELATIVE PERCENT 9 % (BEAKER) (test code = 431) EOSINOPHILS RELATIVE PERCENT 1 % (BEAKER) (test code = 432) BASOPHILS RELATIVE PERCENT 0 % (BEAKER) (test code = 437) NEUTROPHILS ABSOLUTE COUNT 8.44 K/ L 1.80-8.00 H (BEAKER) (test code = 670) LYMPHOCYTES ABSOLUTE COUNT 1.36 K/ L 1.48-4.50 L (BEAKER) (test code = 414) MONOCYTES ABSOLUTE COUNT (BEAKER) 0.98 K/ L 0.00-1.30 (test code = 415) EOSINOPHILS ABSOLUTE COUNT 0.11 K/ L 0.00-0.50 (BEAKER) (test code = 416) BASOPHILS ABSOLUTE COUNT (BEAKER) 0.03 K/ L 0.00-0.20 (test code = 417) IMMATURE GRANULOCYTES-RELATIVE 0.90 % 0.00-0.00 H PERCENT (BEAKER) (test code = 2801) POCT-GLUCOSE [id number] 20:06:37 Test Item Value Reference Range Interpretation Comments POC-GLUCOSE METER 119 mg/dL 70-110 H : TESTED A T [facility] [address] (BEAKER) (test code [facility], = 1538) [place] [id number]: Senior Solutions Engineer/Techni ace ID = [id number] for Parvez Serra POCT-GLUCOSE [id number] 18:11:29 Test Item Value Reference Range Interpretation Comments POC-GLUCOSE METER 130 mg/dL 70-110 H : TESTED A T [address] (BEAKER) (test code [facility], = 1538) [place] [id number]: Senior Solutions Engineer/Techni ace ID = [id number] for Mai carter [place] [id number] 06:18:03 Test Item Value Reference Range Interpretation Comments MAGNESIUM (BEAKER) (test code = 1.3 mg/dL 1.5-3.0 L 627) Senior Solutions Engineer ID - DSENSONOperator ID - DSENSONOperator ID - DSENSONOperator ID - DSENSONBASIC METABOLIC [id number] 06:16:24 Test Item Value Reference Range Interpretation Comments SODIUM (BEAKER) 132 meq/L 135-148 L (test code = 381) POTASSIUM 3.6 meq/L 3.6-5.5 (BEAKER) (test code = 379) CHLORIDE (BEAKER) 101 meq/L 98-106 (test code = 382) CO2 (BEAKER) 22 meq/L 20-29 (test code = 355) BLOOD UREA 13 mg/dL 10-26 NITROGEN (BEAKER) (test code = 354) CREATININE 0.84 mg/dL 0.50-1.20 (BEAKER) (test code = 358) GLUCOSE RANDOM 129 mg/dL 70-110 H (BEAKER) (test code = 652) CALCIUM (BEAKER) 8.2 mg/dL 8.5-10.5 L (test code = 697) EGFR (BEAKER) 92 Interpretatio n of eGFR (test code = mL/min/1.73 values Stage De scription 1092) sq m Result G1 Norm al or high >=90 G2 Mildly decreased 60-89 G3a Mildl y to moderately 45-5 9 G3b Moderately to s everely 30-44 G4 Severl y decreased 15-29 G5 Kidney failure <15Reported eGF R is based on the CKD-EPI 2020 equation that d oes not use a race coefficientEsti mated GFR is not as accur ate as Creatinine Marleny mcdonnell in predicting glom erular filtration rate . Estimated GFR is not appl icable for dialysis patien ts Senior Solutions Engineer ID - DSENSONOperator ID - DSENSONOperator ID - DSENSONOperator ID - DSENSONOperator ID - DSENSONOperator ID - DSENSONOperator ID - DSENSONOperator ID - DSENSONOperator ID - [id number] W/PLT COUNT & AUTO DIFFERENTIAL 2023-05-26 05:59:41 Test Item Value Reference Range Interpretation Comments WHITE BLOOD CELL COUNT (BEAKER) 7.9 K/ L 4.0-10.0 (test code = 775) RED BLOOD CELL COUNT (BEAKER) 4.15 M/ L 4.20-5.80 L (test code = 761) HEMOGLOBIN (BEAKER) (test code = 13.2 GM/DL 13.0-16.8 410) HEMATOCRIT (BEAKER) (test code = 38.9 % 36.0-50.0 411) MEAN CORPUSCULAR VOLUME (BEAKER) 94 fL 82-99 (test code = 753) MEAN CORPUSCULAR HEMOGLOBIN 31.8 pg 27.0-33.0 (BEAKER) (test code = 751) MEAN CORPUSCULAR HEMOGLOBIN CONC 33.9 GM/DL 32.0-36.0 (BEAKER) (test code = 752) RED CELL DISTRIBUTION WIDTH 13.5 % 12.0-15.0 (BEAKER) (test code = 412) PLATELET COUNT (BEAKER) (test 242 K/CU MM 150-430 code = 756) MEAN PLATELET VOLUME (BEAKER) 9.0 fL 6.0-11.5 (test code = 754) NUCLEATED RED BLOOD CELLS 0 /100 WBC 0-0 (BEAKER) (test code = 413) NEUTROPHILS RELATIVE PERCENT 90 % (BEAKER) (test code = 429) LYMPHOCYTES RELATIVE PERCENT 6 % (BEAKER) (test code = 430) MONOCYTES RELATIVE PERCENT 4 % (BEAKER) (test code = 431) EOSINOPHILS RELATIVE PERCENT 0 % (BEAKER) (test code = 432) BASOPHILS RELATIVE PERCENT 0 % (BEAKER) (test code = 437) NEUTROPHILS ABSOLUTE COUNT 7.13 K/ L 1.80-8.00 (BEAKER) (test code = 670) LYMPHOCYTES ABSOLUTE COUNT 0.44 K/ L 1.48-4.50 L (BEAKER) (test code = 414) MONOCYTES ABSOLUTE COUNT (BEAKER) 0.28 K/ L 0.00-1.30 (test code = 415) EOSINOPHILS ABSOLUTE COUNT 0.00 K/ L 0.00-0.50 (BEAKER) (test code = 416) BASOPHILS ABSOLUTE COUNT (BEAKER) 0.01 K/ L 0.00-0.20 (test code = 417) IMMATURE GRANULOCYTES-RELATIVE 0.80 % 0.00-0.00 H PERCENT (BEAKER) (test code = 2801) [id number] 00:00:00Ordered by an unspecified provider.[facility]2020-01-09 07:59:00 Test Item Value Reference Range Interpretation Comments SARS-COV2/RT-PCR (test Not Detected Not Detected, Negative code = 8376775) SARS-COV-2 PERFORMING LAB [facility] (test code = 1161981) Negative results do not preclude SARS-CoV-2 infection [...] of the Act.Fact Sheet for Healthcare Pro viders:https://www.[employer]/Documents/Xpert%20Xpress%20SARS%20CoV-2/Fact%20Sh eets/3023802%50KXKY-KGF-3%20HEALTHCARE%20PROVIDERS%20FACT%20SHEET.pdfFact Sheet for Healthcare Patients:https://www.[employer]/Documents/Xpert%20Xpress%20SARS%20CoV-2/Fact%20Sheets/3023801%20SARS-COV -2%20PATIENT%20FACT%20SHEET.pdfPerforming Laboratory:[facility], [place] [address]CH ANKLE <3 VW [id number] 19:42:43Good signs of callus formation there has been a slight shift in the mortise but it is set at this point.[facility]
[2023-06-12 19:15] LABS: SARS-COV-2 RT PCR NEGATIVE (NEGATIVE)
--- NOTE | 2023-06-12 19:18 | ER ---
Nurse's Notes [facility] Name: Shawn Gant Age: 77 yrs Sex: Male : 1945 Arrival Date: 06/12/2023 Time: 17:23 Bed 17 Private MD: Diagnosis: Fall on same level from slipping, tripping and stumbling with subsequent striking against object;Encounter for change or removal of drains;COPD/ Chronic obstructive pulmonary disease with (acute) exacerbation Presentation: 06/12 17:28 Chief complaint: Patient states: Had a couple beers, tripped and fell possibly hitting nj1 back of the head on fireplace. 17:28 Method Of Arrival: EMS: [facility] 17:28 Coronavirus screen: At this time, the client does not indicate any symptoms associated nj with coronavirus-19. Ebola Screen: Patient denies travel to an Ebola-affected area in the 21 days before illness onset. Initial Sepsis Screen: Does the patient meet any 2 criteria? No. Patient's initial sepsis screen is negative. Does the patient have a suspected source of infection? No. Patient's initial sepsis screen is negative. Risk Assessment: Do you want to hurt yourself or someone else? Patient reports no desire to harm self or others. Onset of symptoms was June 12, 2023. 17:28 Acuity: MARIO 3 nj1 Historical: - Allergies: 17:38 Polio Virus Vaccines; nj1 - PMHx: 17:38 borderline DM; COPD; Hypertension; nj1 - PSHx: 17:38 multiple ortho; nj1 - Immunization history:: Adult Immunizations unknown. - Social history:: Smoking status: Patient/guardian denies using tobacco, the patient reports quitting approximately 10 years ago. Screenin:40 [facility] ED Fall Risk Assessment (Adult) Score/Fall Risk Level 0 - 2 = Low Risk nj1 Oriented to surroundings, Maintained a safe environment, Hourly rounding (assess needs \T\ fall precautionary measures) done. Abuse screen: Denies threats or abuse. Denies injuries from another. Nutritional screening: No deficits noted. Tuberculosis screening: No symptoms or risk factors identified. Assessment: 17:38 General: Appears in no apparent distress. comfortable, Behavior is calm, cooperative, nj1 appropriate for age. Pain: Denies pain. Neuro: Level of Consciousness is awake, alert, obeys commands, Oriented to person, place, time, situation. Cardiovascular: Patient's skin is warm and dry. Respiratory: Airway is patent Respiratory effort is even. : Bentley in place to gravity drainage. 19:33 Reassessment: Patient appears in no apparent distress at this time. Patient and/or nj1 family updated on plan of care and expected duration. Pain level reassessed. Patient is alert, oriented x 3, equal unlabored respirations, skin warm/dry/pink. 19:50 Reassessment: Pt requesting to be transferred back home via ambulance, this RN has nj1 offered to call a cab for him. Paper pants given, pt prefers to be taken by ambulance. Charge nurse as well as house calls nurse aware. Vital Signs: 17:28 BP 123 / 73; Pulse 86; Resp 17; Temp 97.5(TE); Pulse Ox 94% on R/A; Weight 77.11 kg; nj1 Height 5 ft. 11 in. ; 19:32 BP 121 / 78; Pulse 89; Resp 17; Pulse Ox 100% on R/A; nj1 17:28 Body Mass Index 23.71 (77.11 kg, 180.34 cm) nj1 ED Course: 17:26 Patient arrived in ED. ld1 17:27 Hansa Hernandez FNP-C is [facility]. snw 17:27 Praveen Calderón DO is Attending Physician. snw 17:27 Neyda Santiago, RN is Primary Nurse. nj1 17:38 Triage completed. nj1 17:38 Arm band placed on. nj1 17:40 Patient has correct armband on for positive identification. Bed in low position. Call nj1 light in reach. Provided Education on: call light, fall precautions. 19:50 Bentley cath removed intact, balloon deflated. nj1 20:00 No provider procedures requiring assistance completed. Patient did not have IV access nj1 during this emergency room visit. Administered Medications: No medications were administered Medication: 20:05 VIS not applicable for this client. nj1 Output: 19:50 Urine: 3000ml (Bentley); Total: 3000ml. nj1 Outcome: 19:17 Discharge ordered by . snw 20:03 Discharged to home nj1 20:03 Condition: stable 20:03 Discharge instructions given to patient, Instructed on discharge instructions, follow up and referral plans. medication usage, Demonstrated understanding of instructions, follow-up care, medications, Prescriptions given X 1, 20:28 Patient left the ED. nj1 Signatures: Hansa Hernandez FNP-C FNP-Purviw Jena Calderón, RN RN ld1 Neyda Santiago RN RN nj1
--- NOTE | 2023-06-12 19:18 | EDPHYS ---
Physician Documentation [facility] Name: Shawn Gant Age: 77 yrs Sex: Male : 1945 Arrival Date: 06/12/2023 Time: 17:23 Bed 17 Private MD: ED Physician Praveen Calderón HPI: 06/12 17:44 This 77 yrs old Male presents to ER via EMS with complaints of Fall Injury. snw 17:44 Details of fall: The patient fell from an upright position, while walking. Onset: The snw symptoms/episode began/occurred acutely, just prior to arrival. Associated injuries: The patient sustained injury to the head. Severity of symptoms: At their worst the symptoms were very mild. It is unknown whether or not the patient has had similar symptoms in the past. The patient has been recently seen by a physician: The patient has been recently seen at the [facility] Emergency Department. Historical: - Allergies: 17:38 Polio Virus Vaccines; nj1 - PMHx: 17:38 borderline DM; COPD; Hypertension; nj1 - PSHx: 17:38 multiple ortho; nj1 - Immunization history:: Adult Immunizations unknown. - Social history:: Smoking status: Patient/guardian denies using tobacco, the patient reports quitting approximately 10 years ago. ROS: 17:42 Constitutional: Negative for fever, chills, and weight loss, Eyes: Negative for injury, snw pain, redness, and discharge, ENT: Negative for injury, pain, and discharge, Neck: Negative for injury, pain, and swelling, Cardiovascular: Negative for chest pain, palpitations, and edema, Respiratory: Negative for shortness of breath, cough, wheezing, and pleuritic chest pain, Abdomen/GI: Negative for abdominal pain, nausea, vomiting, diarrhea, and constipation, Back: Negative for injury and pain, : Negative for injury, bleeding, discharge, and swelling, + do catheter, would like do removed at he cannot have urology appt until Aug 15 2023, states he has self cath supplies at home. Finished abx for UTI yesterday MS/Extremity: Negative for injury and deformity, Skin: Negative for injury, rash, and discoloration, 17:42 Neuro: Positive for fell and hit head on fireplace but does not really want CT as he says he didn't hit it that hard, GCS 15,, Exam: 17:40 Constitutional: This is a well developed, well nourished patient who is awake, alert, snw and in no acute distress. Head/Face: Normocephalic, atraumatic. Eyes: Pupils equal round and reactive to light, extra-ocular motions intact. Lids and lashes normal. Conjunctiva and sclera are non-icteric and not injected. Cornea within normal limits. Periorbital areas with no swelling, redness, or edema. ENT: Nares patent. No nasal discharge, no septal abnormalities noted. Tympanic membranes are normal and external auditory canals are clear. Oropharynx with no redness, swelling, or masses, exudates, or evidence of obstruction, uvula midline. Mucous membranes moist. Neck: Trachea midline, no thyromegaly or masses palpated, and no cervical lymphadenopathy. Supple, full range of motion without nuchal rigidity, or vertebral point tenderness. No Meningismus. Chest/axilla: Normal chest wall appearance and motion. Nontender with no deformity. No lesions are appreciated. Cardiovascular: Regular rate and rhythm with a normal S1 and S2. No gallops, murmurs, or rubs. Normal PMI, no JVD. No pulse deficits. 17:40 Abdomen/GI: Soft, non-tender, with normal bowel sounds. No distension or tympany. No guarding or rebound. No evidence of tenderness throughout. Back: No spinal tenderness. No costovertebral tenderness. Full range of motion. Skin: Warm, dry with normal turgor. Normal color with no rashes, no lesions, and no evidence of cellulitis. 17:40 Neuro: Awake and alert, GCS 15, oriented to person, place, time, and situation. Cranial nerves II-XII grossly intact. Motor strength 5/5 in all extremities. Sensory grossly intact. Cerebellar exam normal. Normal gait. Psych: Awake, alert, with orientation to person, place and time. Behavior, mood, and affect are within normal limits. 17:40 Respiratory: the patient does not display signs of respiratory distress, Respirations: shallow respirations, Breath sounds: rhonchi, that are moderate, 17:40 Musculoskeletal/extremity: Extremities: grossly normal except: chronic knee pain, Circulation is intact in all extremities. Vital Signs: 17:28 BP 123 / 73; Pulse 86; Resp 17; Temp 97.5(TE); Pulse Ox 94% on R/A; Weight 77.11 kg; nj1 Height 5 ft. 11 in. ; 19:32 BP 121 / 78; Pulse 89; Resp 17; Pulse Ox 100% on R/A; nj1 17:28 Body Mass Index 23.71 (77.11 kg, 180.34 cm) nj1 MDM: 17:27 Patient medically screened. snw 18:15 Refusal of service: The patient/guardian displays adequate decision making capability snw and despite a detailed discussion of alternatives, benefits, risks, and consequences refuses: CT Scan. 20:06 Differential diagnosis: closed head injury, contusion, fracture, sprain. Data reviewed: snw vital signs, nurses notes, lab test result(s), radiologic studies. I considered the following discharge prescriptions or medication management in the emergency department Medications were administered in the Emergency Department. See MAR. Historians other than the Patient: EMS: [facility]. Counseling: I had a detailed discussion with the patient and/or guardian regarding the historical points, exam findings, and any diagnostic results supporting the discharge/admit diagnosis, lab results, the need for outpatient follow up, for definitive care, to return to the emergency department if symptoms worsen or persist or if there are any questions or concerns that arise at home. 06/12 17:40 Order name: COVID-19/FLU A+B/RSV; Complete Time: 19:15 snw 06/12 17:49 Order name: Misc. Order: do: please remove; Complete Time: 20:07 snw Administered Medications: No medications were administered Disposition: 18:07 I was immediately available on-site in the Emergency Department for consultation in the ms3 care of the patient. Disposition Summary: 06/12/23 19:17 Discharge Ordered Notes: Location: Home snw Condition: Stable snw Diagnosis - Fall on same level from slipping, tripping and stumbling with subsequent striking snw against object - Encounter for change or removal of drains snw - COPD/ Chronic obstructive pulmonary disease with (acute) exacerbation snw Followup: snw - With: Emergency Department - When: As needed - Reason: Worsening of condition Followup: snw - With: Private Physician - When: 1 - 2 days - Reason: Recheck today's complaints, Continuance of care, Re-evaluation by your physician Discharge Instructions: - Discharge Summary Sheet snw - Head Injury, Adult snw - Fall Prevention in the Home, Adult snw - Chronic Obstructive Pulmonary Disease Exacerbation snw - Indwelling Urinary Catheter Removal at Home, Male snw Forms: - Medication Reconciliation Form snw - Thank You Letter snw - Antibiotic Education snw - Prescription Opioid Use snw - Patient Portal Instructions snw - Leadership Thank You Letter snw Prescriptions: - Augmentin 875-125 mg Oral Tablet - take 1 tablet ORAL route every 12 hours for 10 days; 20 tablet; Refills: 0, snw Product Selection Permitted Signatures: Dispatcher [employer] EDMS Hansa Hernandez, HYDROGEN OPERATOR-C HYDROGEN OPERATOR-Csnw Praveen Calderón DO DO ms3 Neyda Santiago RN RN nj1 Corrections: (The following items were deleted from the chart) 18:47 17:41 Head C Spine MPR Wo Con+CT.RAD.BRZ ordered. EDMS EDMS 20:08 20:06 Historians other than the Patient: EMS: [facility]. snw snw 20:08 20:06 Counseling: I had a detailed discussion with the patient and/or guardian snw regarding the historical points, exam findings, and any diagnostic results supporting the discharge/admit diagnosis, lab results, the need for outpatient follow up, for definitive care, to return to the emergency department if symptoms worsen or persist or if there are any questions or concerns that arise at home, mak
[2023-06-12 20:37] VITALS: TEMP 97.5
[2023-06-12 20:38] VITALS: BP 121/78; O2SAT 100
== END 2023-06-12 20:28 | disposition home or self-care (01) ==
LOC: ER 17:23
DX: S09.90XA Unspecified injury of head, initial encounter (principal); W01.198A Fall on same level from slipping, tripping and stumbling with subsequent striking against other object, initial encounter; J44.1 Chronic obstructive pulmonary disease with (acute) exacerbation; Z48.03 Encounter for change or removal of drains; I10 Essential (primary) hypertension; E11.9 Type 2 diabetes mellitus without complications; Z11.52 Encounter for screening for COVID-19
CPT/HCPCS: 0241U; 99283

== ENCOUNTER 2023-06-13 06:15 | Emergency (ER) | payer OTHER ==
--- OUTSIDE RECORDS SUMMARY | 2023-06-13 07:35 | XMS REPORT | Continuity of Care Document ---
:1945 Author Organization [facility] t Address [address] [place] [address] Care Team Providers Name Role Phone SAMIR MUNOZ Attending Clinician Unavailable Goldfarb_R Attending Clinician Unavailable MIKEY CORMIER Attending Clinician Unavailable Rafa Guerrier DO Attending Clinician Mikey Cormier MD Attending Clinician SANTANA WILLIS Attending Clinician Unavailable YAMILET FOSS [...] Expiration Date S ource STATE [employer]ARM MEDICARE [id number] 2012 SUPPLEMENT 00:00:00 MEDICARE A B [id number] 2012 00:00:00 MEDICARE B-[place]: [id number] 2012 [employer] SOLUTIONS 00:00:00 [employer] FARM INS [id number] 2012 COMPANIES - PLAN F 00:00:00 (MEDICARE SUPPLEMENT) Problems Condition Condition Condition Status Onset Resolution Last Treating Co mments Source Name Details Category Date Date Treatment Clinician Date Acute Acute Disease Active 2022-[address] [facility]stitis [facility] without without 00:00: Medical hematuria hematuria 00 Cent er Bilateral Bilateral Disease Active Uni vers knee pain knee pain 3- ity of 00:00: [place] 00 Medical Branch [...] to Branch drug NO KNOWN Allergy Active [facility] Social History Social Habit Start Date Stop Date Quantity Comments Source Alcohol Comment Occasional [facility] Sexual orientation [facility] Exposure to 2023-05-16 2023-05-26 Not sure [facility] SARS-CoV-2 (event) 00:00:00 02:37:00 Medica l Center Tobacco use and 2023-05-26 2023-05-26 Smokeless tobacco [facility] exposure 00:[facility]:00:00 non-user Medical Center History of Social 2023-05-26 2023-05-26 [facility] function 00:00:00 00:00:00 Medical Center Alcohol intake 2023-05-26 2023-05-26 [facility]00 of alcohol Medical Center (finding) Cigarettes smoked 2019-01-30 2019-01-30 Univers ity of current (pack per 00:00:00 00:00:00 [facility] ) - Reported Branch Tobacco Comment 2015-09-23 2015-09-23 Has one month Univer sity of 00:00:00 00:00:00 since no smoking. [facility] History of tobacco 2013-05-[address] [facility] use 00:00:00 Medical Center Sex Assigned At [address] [address] Manda kes 00:00:00 00:00:00 Medical Center Smoking Status Start Date Stop Date Source Tobacco smoking [facility] consumption unknown Ex-smoker 2023-05-26 00:00:00 2023-05-[address] [facility] 00:00:00 Center Current some day smoker 2019-01-30 00:[facility] Medications Ordered Filled Start Stop Current Ordering Indication Dosage Frequency Signature Comments Components Source Medication Medication Date Date Medication? Clinician (SIG) Name Name montelukast 2022-07 Yes 10mg QD Take 1 [...] QD Take [address] [facility] (PROSCAR) 5 1-13 tablet (5 Clair es mg tablet 10:58: mg total) Med ical 19 by mouth Center daily. diclofenac 2022-07 Yes 50mg QD Take 1 [...] 19 total) by Center capsule mouth daily. diclofenac 2022-07 Yes 50mg QD Take 1 [...] QD Take [address] [facility] [address] (PROSCAR) 5 1-13 tablet (5 Clair es mg tablet 10:58: mg total) Med ical 19 by mouth Center daily. sulfamethox 2022-07- No 160mg{t Q.5D Take [address] [facility] azole-trime -13 11-20 rimetho tablet Manda kes thoprim 00:00: 23:59 prim} (160 mg of Me dical (BACTRIM 00 :00 trimethopr Cente r DS) 800-160 im total) mg per by mouth 2 tablet (two) times daily for 7 days. sulfamethox 2022-07- No 160mg{t Q.5D Take [address] [address] azole-trime 1-13 11-20 rimetho tablet Manda kes thoprim 00:00: 23:59 prim} (160 mg of Me dical (BACTRIM 00 :00 trimethopr Cente r DS) 800-160 im total) mg per by mouth 2 tablet (two) times daily for 7 days. predniSONE 2022-07 No 50mg QD Take [address] [facility] [address] (DELTASONE) 1-13 11-16 tablet (50 L ukes 50 MG 00:00: 23:59 mg total) Medica l tablet 00 :00 by mouth Center daily for 3 days. predniSONE 2022-07 No 50mg QD Take [address] [facility] (DELTASONE) 1-13 11-16 tablet (50 L ukes 50 MG 00:00: 23:59 mg total) Medica l tablet 00 :00 by mouth Center daily for 3 days. albuterol-i 2022-07- Yes 2{puff} Inhale [address] [address] pratropium 1-12 02-10 puffs by Luke s (Combivent 00:00: 23:59 mouth via M edical Respimat) 00 :00 inhaler Center 20-100 every 6 mcg/actuati (six) on Mist hours as inhaler needed for Wheezing for up to 90 days. budesonide 2022-07- Yes 1{puff} Q.5D Inhale [address] (PULMICORT) 1-12 02-10 puff by Luke s 90 00:00: 23:59 mouth via Medical mcg/actuati 00 :[address] on inhaler (two) times daily for 90 days. albuterol-i 2022-07- Yes 2{puff} Inhale [address] pratropium 1-12 02-10 puffs by Luke s (Combivent 00:00: 23:59 mouth via M edical Respimat) 00 :00 inhaler Center 20-100 every 6 mcg/actuati (six) on Mist hours as inhaler needed for Wheezing for up to 90 days. budesonide 2022-07- Yes 1{puff} Q.5D Inhale [address] (PULMICORT) 1-12 02-10 puff by Luke s 90 00:00: 23:59 mouth via Medical mcg/actuati 00 :[address] on inhaler (two) times daily for 90 days. methocarbam 2022-07- No 500mg Q.[id number] Take [address] [facility] [address] oL -06-07 [id number] tablet [facility] (ROBAXIN) 00:00: 23:59 3D (500 mg Medi lawanda 500 MG 00 :00 total) by Center tablet mouth 3 (three) times daily for 10 days. methocarbam 2022-07- No 500mg Q.53440045 Take [address] oL -06-07 [id number] tablet [facility]ukes (ROBAXIN) 00:00: 23:59 3D (500 mg Medi lawanda 500 MG 00 :00 total) by Center tablet mouth 3 (three) times daily for 10 days. sulfamethox 2022-07- No 160mg{t Q.5D Take [address] azole-trime 07-28-13 rimetho tablet Manda kes thoprim 00:00: 00:00 prim} (160 mg of Me dical (BACTRIM 00 :00 trimethopr Cente r DS) 800-160 im total) mg per by mouth 2 tablet (two) times daily for 4 days. sulfamethox 2022-07 No 160mg{t Q.5D Take [address] azole-trime 07-28-13 rimetho tablet Manda kes thoprim 00:00: 00:00 prim} (160 mg of Me dical (BACTRIM 00 :00 trimethopr Cente r DS) 800-160 im total) mg per by mouth 2 tablet (two) times daily for 4 days. acetaminoph 2019-0 Yes [id number] 1{tbl} Take 1 Univers en-codeine 7-10 tablet by ity of (TYLENOL-CO 00:00: mouth [place] DEINE #3) 00 every 4 Medical 300-30 mg (four) Branch tablet hours as needed for Pain (scale 4-6) or Pain (scale 7-10). acetaminoph 2019-0 Yes [id number] 1{tbl} Take 1 Univers en-codeine 7-10 tablet by ity of (TYLENOL-CO 00:00: mouth [place] DEINE #3) 00 every 4 Medical 300-30 mg (four) Branch tablet hours as needed for Pain (scale 4-6) or Pain (scale 7-10). acetaminoph Yes [id number] 1{tbl} Take 1 Univers en-codeine 7-10 tablet by ity of (TYLENOL-CO 00:00: mouth [place] DEINE #3) 00 every 4 Medical 300-30 mg (four) Branch tablet hours as needed for Pain (scale 4-6) or Pain (scale 7-10). acetaminoph Yes [id number] 1{tbl} Take 1 Univers en-codeine 7-10 tablet by ity of (TYLENOL-CO 00:00: mouth [place] DEINE #3) 00 every 4 Medical 300-30 mg (four) Branch tablet hours as needed for Pain (scale 4-6) or Pain (scale 7-10). acetaminoph Yes [id number] 1{tbl} Take 1 Univers en-codeine 7-10 tablet [...] tablet needed for Pain (scale 4-6). acetaminoph 0 Yes 1{tbl} Take 1 Tab Univers en-codeine [...] Systolic blood 2019-03-13 19:06:00 125 mm[facility]Hg[facility] [place] [facility] 2019-03-13 19:06:00 79 [facility] 2019-03-13 19:06:00 106 /min [facility] Respiratory rate 2019-03-13 19:06:00 18 /[facility] Body height 2019-03-13 19:06:00 180.3 cm [facility] Body weight 2019-03-13 19:06:00 90.719 kg [facility] BMI 2019-03-13 19:06:00 27.89 kg/m2 [facility] Systolic blood 2019-03-13 19:06:00 125 mm[Hg] [facility] [place] Diastolic blood 2019-03-13 19:06:00 79 mm[Hg[facility] 2019-03-13 19:06:00 106 /min [facility] Respiratory rate 2019-03-13 19:06:00 18 /min [facility] Body height 2019-03-13 19:06:00 180.3 cm [facility] Body weight 2019-03-13 19:06:00 90.719 kg [facility] BMI 2019-03-13 19:06:00 27.89 kg/m2 [facility] Systolic blood 2023-05-29 08:00:00 178 mm[Hg] [facility] Diastolic blood 2023-05-29 08:00:00 91 mm[Hg] [facility] Heart rate 2023-05-29 08:00:00 58 /min [facility] Body temperature 2023-05-29 08:00:00 35.83 Briana [facility] Respiratory rate 2023-05-29 08:00:00 18 /min [facility] Oxygen saturation in 2023-05-29 08:00:00 96 /min [facility] Arterial blood by Medical Ce nter Pulse oximetry Body height 2023-05-26 02:40:00 180.3 cm [facility] Body weight 2023-05-26 02:40:00 82.101 kg [facility] BMI 2023-05-26 02:40:00 25.24 kg/m2 [facility] Procedures Procedure Date / Time Performing Clinician Source Performed POCT-GLUCOSE METER 2023-05-29 07:38:00 Genia [facility] CBC W/PLT COUNT & AUTO 2023-05-29 04:25:00 Rafa Guerrier [facility] DIFFERENTIAL [place] CBC W/PLT COUNT & AUTO 2023-05-29 04:25:00 [facility]UCOSE METER 2023-05-28 20:18:00 Genia [facility] POCT-GLUCOSE METER 2023-05-28 15:53:00 Genia [facility] POCT-GLUCOSE METER 2023-05-28 11:22:00 Genia [facility] POCT-GLUCOSE METER 2023-05-28 07:22:00 Genia, [facility] BASIC METABOLIC PANEL 2023-05-28 04:49:00 Rafa Guerrier [facility] CBC W/PLT COUNT & AUTO 2023-05-28 04:49:00 Rafa Guerrier [facility] CBC W/PLT COUNT & AUTO 2023-05-28 04:49:00 Rafa Guerrier [facility] POCT-GLUCOSE METER 2023-05-27 19:44:00 Genia [facility] POCT-GLUCOSE METER 2023-05-27 15:48:00 [facility] PO[facility]SE METER 2023-05-27 11:49:00 Genia [facility] POCT-GLUCOSE METER 2023-05-27 07:41:00 [facility] BASIC METABOLIC PANEL 2023-05-27 05:32:00 Chey Rafa [facility] CBC W/PLT COUNT & AUTO 2023-05-27 05:32:00 Rafa Guerrier [facility] CBC W/PLT COUNT & AUTO 2023-05-27 05:32:00 Rafa Guerrier [facility] POCT-GLUCOSE METER 2023-05-26 19:55:00 Genia, [facility] POCT-GLUCOSE METER 2023-05-26 18:00:00 Genia, [facility] BASIC METABOLIC PANEL 2023-05-26 05:46:00 Rafa Guerrier [facility] MAGNESIUM 2023-05-26 05:46:00 Chey Rafa [facility] CBC W/PLT COUNT & AUTO 2023-05-26 05:46:00 Rafa Guerrier [facility] CBC W/PLT COUNT & AUTO 2023-05-26 05:46:[address] [facility] DIFFERENTIAL Center EKG-SCANNED 2023-05-26 00:00:00 Provider, [facility] XR ANKLE <3 VW LEFT 2019-03-13 19:17:48 Kevin Serna [facility] Plan of Care Planned Activity Planned Date Details Comments Source Future Scheduled 2024-05-[address] [facility] Test 00:00:00 Counseling and Medical Cente r Screening (12+) [code = Tobacco Cessation Counseling and Screening (12+)] Future Scheduled 2024-05-[address] [facility] Test 00:00:00 Counseling and Medical Cente r Screening (12+) [code = Tobacco Cessation Counseling and Screening (12+)] Future Scheduled 2023-03-17 Influenza Vaccine (#1) [facility] 00:[facility]00 [code = Influenza Medical Ce nter Vaccine (#1)] Future Scheduled 2023-03-17 Influenza Vaccine (#1[facility] 00:00:00 [code = Influenza Medical Ce nter Vaccine (#1)] Future Scheduled 2022-07-[address] [facility] Test 00:00:00 (12+) [code = Medical Center DEPRESSION SCREENING (12+)] Future Scheduled 2022-07-17 FALLS RISK SCREENING [facility] Test 00:00:00 [code = FALLS RISK Medical C enter SCREENING] Future Scheduled 2022-07-[address] [...] FIRST YEAR if no IPPE)] Future Scheduled 2013-06-[address] [facility] Test 00:00:00 WELLNESS (YEAR 2 or Medical Center FIRST YEAR if no IPPE) [code = MEDICARE ANNUAL WELLNESS (YEAR 2 or FIRST YEAR if no IPPE)] Future Scheduled [address] [facility] Test 00:00:00 aneurysm screening Medical C enter (procedure) [code = 901012366] Future Scheduled [address] [facility] Test 00:00:00 aneurysm screening Medical C enter (procedure) [code = 145127051] Future Scheduled 1997 SHINGLES VACCINES ([address] [facility] Test 00:00:00 2) [code = SHINGLES Medical Center VACCINES (1 of 2)] Future Scheduled 1997 SHINGLES VACCINES ([address] [facility] Test 00:00:00 2) [code = SHINGLES Medical Center VACCINES (1 of 2)] Future Scheduled 1966 DTAP/TDAP/TD VACCINES [facility] 00:00:00 (1 - Tdap) [code = Medical C enter DTAP/TDAP/TD VACCINES (1 - Tdap)] Future Scheduled 1966 DTAP/TDAP/TD VACCINES [facility] Test 00:00:00 (1 - Tdap) [code = Medical C enter DTAP/TDAP/TD VACCINES (1 - Tdap)] Future Scheduled 1965 HEPATITIS C SCREENING [facility] 00:00:00 [code = HEPATITIS C Medical Center SCREENING] Future Scheduled 1965 HEPATITIS C [facility]CRE[facility]ING [facility] 00:00:00 [code = HEPATITIS C Medical Center SCREENING] Future Scheduled 1953 PNEUMOCOCCAL 65+ YRS ([address] [facility] Test 00:00:00 - PCV) [code = Medical Cente r PNEUMOCOCCAL 65+ YRS (1 - PCV)] Future Scheduled 1953 PNEUMOCOCCAL 65+ YRS ([address] [facility] Test 00:00:00 - PCV) [code = Medical Cente r PNEUMOCOCCAL 65+ YRS (1 - PCV)] Future Scheduled 1948-01-11 COVID-19 VACCINE (#1) [facility] 00:00:00 [code = COVID-[address] VACCINE (#1)] Future Scheduled 1948-01-11 COVID-19 VACCINE (#1) [facility] 00:00:00 [code = COVID-[address] VACCINE (#1)] Future Scheduled 1947 CT Colonography (combo) [facility] Test 00:00:00 [code = CT Colonography [facility] (combo)] Future Scheduled 1947 Screening for malignant [facility] Test 00:00:00 neoplasm of colon Medical Ce nter (procedure) [code = 352950756] Future Scheduled 1947 Screening for malignant [facility] Test 00:00:00 neoplasm of colon Medical Ce nter (procedure) [code = 882661789] Future Scheduled 1947 Screening for malignant [facility] Test 00:00:00 neoplasm of colon Medical Ce nter (procedure) [code = 529351182] Future Scheduled 1947 Screening for malignant [facility] Test 00:00:00 neoplasm of colon Medical Ce nter (procedure) [code = 118194943] Future Scheduled 1945 Sigmoidoscopy [code = [facility] 00:00:00 Sigmoidoscopy] Medical Cente r Future Scheduled 1947 CT Colonography (combo) [facility] Test 00:00:00 [code = CT Colonography [facility] (combo)] Future Scheduled 1947 Screening for malignant [facility] Test 00:00:00 neoplasm of colon Medical Ce nter (procedure) [code = 534070767] Future Scheduled 1947 Screening for malignant [facility] Test 00:00:00 neoplasm of colon Medical Ce nter (procedure) [code = 750506682] Future Scheduled 1947 Screening for malignant [facility] Test 00:00:00 neoplasm of colon Medical Ce nter (procedure) [code = 247297251] Future Scheduled 1947 Screening for malignant [facility] Test 00:00:00 neoplasm of colon Medical Ce nter (procedure) [code = 114373525] Future Scheduled 1945 Sigmoidoscopy [code = [facility] 00:00:00 Sigmoidoscopy] Medical Cente r Encounters Start End Encounter Admission Attending Care Care Encounter Source Date/Time Date/Time Type Type Clinicians Facility Department ID 2022-07-20 Outpatient [facility] [id number] [place] 06:41:42 [id number] [facility] 2022-07-07 Outpatient [facility] [id number] [place] 15:52:21 [id number] [facility] 2022-07-05 Outpatient [facility] [id number] [place] 15:12:02 [id number] [facility] 2022-06-29 Outpatient [facility] [id number] [place] 06:49:39 [id number] [facility] 2022-06-17 Inpatient NGOZI MUNOZ [facility] Surgery [id number] [facility] 19:53:27 [facility] 2023-06-01 2023-06-01 Outpatient Goldfarb_R [facility] [id number] [place] [address] 00:00:00 00:00:00 [id number] [facility] 2023-05-26 2023-05-29 Inpatient ER GENIA [facility] [id number] [facility] 02:16:00 10:58:00 [facility] 2023-05-26 2023-05-29 [facility] [id number] 02:16:00 10:58:00 Encounter Genia [facility] 2023-05-26 2023-05-29 [facility] [id number] 02:16:00 10:58:00 Encounter Genia [facility] 2023-05-26 2023-05-26 Travel [facility] [id number] [facility] 00:[facility]:00 00:00:00 [facility] 2023-05-26 2023-05-26 Travel [facility] [id number] [facility] 00:[facility]:00 00:00:00 [facility] 2022-07-26 2022-07-26 Outpatient ALBA [facility] [id number] [facility] 12:51:00 23:59:00 SANTANA 2022-07-20 2022-07-20 Outpatient PIPO [facility] [id number] [place] 11:00:00 11:00:00 YAMILET Taylor 2022-07-07 2022-07-07 Office SHRUTI Skelton [facility] [id number] [place] 15:45:00 16:48:07 Visit Luca [facility] [id number] H roberto GRANADO 9.2.7.2.686 SMI [id number] 2022-06-18 2022-06-24 Inpatient Joselito REHMAN, [facility] [id number] [facility] 13:52:00 22:44:00 [facility] 2019-03-29 2019-03-29 Telephone [facility] [id number] [facility] 00:00:00 00:00:00 Yan L Yapmo [id number] it y of Surgical 4.2.7.2.686 Dereck as Specialti [id number] Ny dical es 198 [facility] 2019-03-29 2019-03-29 Telephone [facility] [id number] 00:00:00 00:00:00 Yan Wooten Yapmo [id number] Surgical 4.2.7.2.686 Specialti [id number] 198 [place] 2019-03-13 2019-03-13 [facility] [id number] [facility] 14:17:47 23:59:00 Encounter [facility] [id number] ity of Surgical 4.2.7.2.686 Dereck as Specialti [id number] Ny dical es 809 [facility] 2019-03-13 2019-03-13 [facility] [id number] 14:17:47 23:59:00 Encounter [facility] [id number] Surgical 4.2.7.2.686 Specialti [id number] es 809 [place] 2019-03-13 2019-03-13 Office [facility] [id number] Univers 14:01:05 14:50:54 Visit Kevin Amezquita Yapmo [id number] it y of Surgical 4.2.7.2.686 Dereck as Specialti [id number] Me dical es 198 [facility] 2019-03-13 2019-03-13 Office [facility] [id number] 14:01:05 14:50:54 Visit [facility] [id number] Surgical 4.2.7.2.686 [facility]ly [facility] [id number] 198 [place] Results Test Description Test Time Test Comments Results Result Comments Source POC-Glucose meter 2023-05-29 07:50:27 Test Item Value Reference Range Interpretation Comme nts POC-Glucose Meter (test code = 81 mg/dL 70-110 : TESTED AT [facility] [address] 1538) [facility] [address]: Food Broker/Techni ace ID = [id number] for OrtezLatasha Lab Interpretation (test code = Normal 51716-6) [facility] [id number] 07:50:27 Test Item Value Reference Range Interpretation Comments POC-Glucose Meter (test 81 mg/dL 70-110 : TE STED AT [facility] code = 1538) [address] [facility] [address]: Food Broker/Techni ace ID = [id number] for Latasha Ortez Lab Interpretation (test Normal code = 58917-3) [id number] 07:50:27 Test Item Value Reference Range Interpretation Comments POC-GLUCOSE METER 81 mg/dL 70-110 : [facility] ([facility]ER[facility] (test code = [address] [facility], 1538) [facility] 77 478: Food Broker/Techni ace ID = [id number] for Sanchez zhaoLatasha CBC W/PLT COUNT & AUTO [id number] 05:07:11 Test Item Value Reference Range Interpretation [...] PERCENT (BEAKER) (test code = 2801) POCT-GLUCOSE [id number] 20:30:20 Test Item Value Reference Range Interpretation Comments POC-GLUCOSE METER 131 mg/dL 70-110 H : TESTED A T [facility] [address] (BEAKER) (test code [facility] [address], = 1538) [place] [address] 478: Food Broker/Techni ace ID = [id number] for Magy Fall POCT-GLUCOSE [id number] 16:04:33 Test Item Value Reference Range Interpretation Comments POC-GLUCOSE METER 195 mg/dL 70-110 H : TESTED A T [facility] [address] (BEAKER) (test code [address], = 1538) [place] [address] 478: Food Broker/Techni ace ID = [id number] for Latasha Bonilla POCT-GLUCOSE [id number] 11:33:43 Test Item Value Reference Range Interpretation Comments POC-GLUCOSE METER 171 mg/dL 70-110 H : TESTED A T [facility] [address] (BEAKER) (test code [address], = 1538) [place] [address] 478: Food Broker/Techni ace ID = [id number] for Latasha Bonilla POCT-GLUCOSE [id number] 07:33:51 Test Item Value Reference Range Interpretation Comments POC-GLUCOSE METER 83 mg/dL 70-110 : TESTED A T [facility] [address] (BEAKER) (test code = [address]) [place] [address] 478: Food Broker/Techni ace ID = [id number] for Latasha Bonilla BASIC METABOLIC [id number] 05:24:49 Test Item Value Reference Range Interpretation [...] not appl icable for dialysis patien ts Food Broker ID - LITOOperator ID - LITOOperator ID - LITOOperator ID - LITOOperator ID - LITOOperator ID - LITOOperator ID - LITOOperator ID - LITOOperator ID - LITOOperator ID - LITOOperator ID - LITOOperator ID - LITOCBC W/PLT COUNT & AUTO [id number] 05:05:56 Test Item Value Reference Range Interpretation [...] PERCENT (BEAKER) (test code = 2801) POCT-GLUCOSE [id number] 19:55:31 Test Item Value Reference Range Interpretation Comments POC-GLUCOSE METER 203 mg/dL 70-110 H : TESTED A T [facility] [address] (BEAKER) (test code [facility], = 1538) [place] [address]: Food Broker/Techni ace ID = [id number] for Buddy laboy Magy POCT-GLUCOSE [id number] 15:59:37 Test Item Value Reference Range Interpretation Comments POC-GLUCOSE METER 100 mg/dL 70-110 : TESTED A T [facility] [address] (BEAKER) (test code [address] [facility], = 1538) [place] [address]: Food Broker/Techni ace ID = [id number] for Candice la, Smiley POCT-GLUCOSE [id number] 12:00:57 Test Item Value Reference Range Interpretation Comments POC-GLUCOSE METER 100 mg/dL 70-110 : TESTED A T [facility] [address] (BEAKER) (test [facility] [address] [facility] [facility] 1538[facility] [place] [address]: Food Broker/Techni ace ID = [id number] for Candice la, Smiley POCT-GLUCOSE [id number] 07:52:28 Test Item Value Reference Range Interpretation Comments POC-GLUCOSE METER 88 mg/dL 70-110 : TESTED A T [facility] [address] (BEAKER) (test code = [address], 1538) [place] [address]: Food Broker/Techni ace ID = [id number] for Candice la, Smiley BASIC METABOLIC [id number] 06:14:29 Test Item Value Reference Range Interpretation [...] not appl icable for dialysis patien ts Food Broker ID - [id number] ID - [id number] ID - [id number] ID - [id number] ID - [id number] ID - [id number] ID - [id number] ID - [id number] ID - [id number] ID - [id number] ID - [id number] ID - [id number] W/PLT COUNT & AUTO [id number] 05:52:10 Test Item Value Reference Range Interpretation [...] PERCENT (BEAKER) (test code = 2801) POCT-GLUCOSE [id number] 20:06:37 Test Item Value Reference Range Interpretation Comments POC-GLUCOSE METER 119 mg/dL 70-110 H : TESTED A T SLSL 1317 (BEAKER) (test code [address], = 1538) [facility] [id number]: Food Broker/Techni ace ID = [id number] for Parvez Serra POCT-GLUCOSE [id number] 18:11:29 Test Item Value Reference Range Interpretation Comments POC-GLUCOSE METER 130 mg/dL 70-110 H : TESTED A T SLSL 1317 (BEAKER) (test code [address], = 1538) [place] [id number]: Food Broker/Techni ace ID = [id number] [facility] [id number] 06:18:03 Test Item Value Reference Range Interpretation Comments MAGNESIUM (BEAKER) (test code = 1.3 mg/dL 1.5-3.0 L 627) Food Broker ID - DSENSONOperator ID - DSENSONOperator ID - DSENSONOperator ID - DSENSONBASIC METABOLIC [id number] 06:16:24 Test Item Value Reference Range Interpretation [...] not appl icable for dialysis patien ts Food Broker ID - DSENSONOperator ID - DSENSONOperator ID [...] H PERCENT (BEAKER) (test code = 2801) [id number] 00:00:00Ordered by an unspecified provider.[id number] 00:00:00Ordered by an unspecified provider. [facility])2020-01-09 07:59:00 Test Item Value Reference Range Interpretation Comments SARS-COV2/RT-PCR (test Not Detected Not Detected, Negative code = 1682788) SARS-COV-2 PERFORMING LAB [facility] (test code = 1522109) Negative results do not preclude SARS-CoV-2 infection [...] of the Act.Fact Sheet for Healthcare Pro viders:https://www.[employer].Webstep/Documents/Xpert%20Xpress%20SARS%20CoV-2/Fact%20Sh eets/302-3802%13VGZD-WRH-1%20HEALTHCARE%20PROVIDERS%20FACT%20SHEET.pdfFact Sheet for Healthcare Patients:https://www.[employer].Webstep/Documents/Xpert%20Xpress%20SARS%20CoV-2/Fact%20Sheets/302-3801%20SARS-COV -2%20PATIENT%20FACT%20SHEET.pdfPerforming Laboratory:[facility], [place] [address]DQ ANKLE <3 VW [id number] 19:42:43Good signs of callus formation there has been a slight shift in the mortise but it is set at this point.[facility]
--- NOTE | 2023-06-13 08:19 | EDPHYS ---
Physician Documentation [facility] Name: Shawn Gant Age: 77 yrs Sex: Male : 1945 Arrival Date: 06/13/2023 Time: 06:15 Bed 8 Private MD: ED Physician Praveen Calderón HPI: 06/13 08:15 This 77 yrs old Male presents to ER via EMS with complaints of Urinary Retention. ms3 08:15 77-year-old male with past medical history of borderline diabetes, COPD, hypertension ms3 presents to the emergency department for urinary retention. Patient was seen in the emergency department yesterday and Bentley catheter was removed. Patient states after arriving home he was unable to urinate. Patient states his discomfort is a 6/10. Patient denies any alleviating or inciting factors.. Historical: - Allergies: 06:51 Polio Virus Vaccines; bp - PMHx: 06:51 borderline DM; COPD; Hypertension; bp - PSHx: 06:51 multiple ortho; bp - Immunization history:: Adult Immunizations up to date. - Social history:: Smoking status: unknown. ROS: 08:15 Constitutional: Negative for fever, and chills. Neck: Negative for injury, pain, and ms3 swelling, Cardiovascular: Negative for chest pain, and palpitations. Respiratory: Negative for shortness of breath, cough, wheezing, and pleuritic chest pain, 08:15 : Positive for Urinary retention, 08:15 All other systems are negative, Exam: 08:15 Constitutional: This is a well developed, well nourished patient who is awake, alert, ms3 and in no acute distress. Head/Face: Normocephalic, atraumatic. Neck: Trachea midline, no cervical lymphadenopathy. Supple, full range of motion without nuchal rigidity, or vertebral point tenderness. No Meningismus. Chest/axilla: Normal chest wall appearance and motion. Nontender with no deformity. Cardiovascular: Regular rate and rhythm with a normal S1 and S2. No gallops, murmurs, or rubs. Normal PMI, no JVD. No pulse deficits. Respiratory: Lungs have equal breath sounds bilaterally, clear to auscultation and percussion. No rales, rhonchi or wheezes noted. No increased work of breathing, no retractions or nasal flaring. 08:15 Abdomen/GI: Inspection: abdomen appears normal, Bowel sounds: normal, Palpation: moderate abdominal tenderness, in the suprapubic area, Vital Signs: 06:48 BP 121 / 75; Pulse 74; Resp 18; Temp 98.9; Pulse Ox 97% ; bp 07:00 BP 126 / 82; Pulse 103; Resp 18; Pulse Ox 96% on R/A; db 07:30 BP 129 / 92; Pulse 98; Resp 16; Pulse Ox 100% on R/A; db 08:00 BP 125 / 81; Pulse 92; Resp 18; Pulse Ox 100% on R/A; db MDM: 07:15 Patient medically screened. ms3 08:15 Differential diagnosis: urinary retention. Data reviewed: vital signs, nurses notes, ms3 and as a result, I will discharge patient. Care significantly affected by the following chronic conditions: Diabetes, Hypertension, Chronic Obstructive Pulmonary Disease. Counseling: I had a detailed discussion with the patient and/or guardian regarding the historical points, exam findings, and any diagnostic results supporting the discharge/admit diagnosis, the need for outpatient follow up, to return to the emergency department if symptoms worsen or persist or if there are any questions or concerns that arise at home. Special discussion: I discussed with the patient/guardian in detail that at this point there is no indication for admission to the hospital. It is understood, however, that if the symptoms persist or worsen the patient needs to return immediately for re-evaluation. ED course: Bentley catheter placed with urine draining. Patient instructed on how to change to leg bag. Patient to follow-up with urology in 2 to 3 days. Patient understands and agrees with plan. All questions were answered. Return precautions discussed include worsening symptoms, or any other concerns. 06/13 07:15 Order name: Bentley; Complete Time: 07:56 ms3 06/13 07:15 Order name: Bentley Leg Bag; Complete Time: 07:56 ms3 Administered Medications: No medications were administered Disposition Summary: 06/13/23 08:19 Discharge Ordered Notes: Location: Home ms3 Condition: Stable ms3 Diagnosis - Urinary retention ms3 Followup: ms3 - With: Joseph Gutierrez MD - When: 2 - 3 days - Reason: Recheck today's complaints Discharge Instructions: - Discharge Summary Sheet ms3 - Acute Urinary Retention, Male ms3 Forms: - Medication Reconciliation Form ms3 - Thank You Letter ms3 - Antibiotic Education ms3 - Prescription Opioid Use ms3 - Patient Portal Instructions ms3 - Leadership Thank You Letter ms3 Signatures: Wyatt Rose, RN RN Praveen Jack, DO ms3
--- NOTE | 2023-06-13 08:19 | ER ---
Nurse's Notes [facility] Name: Shawn Gant Age: 77 yrs Sex: Male : 1945 Arrival Date: 06/13/2023 Time: 06:15 Bed 8 Private MD: Diagnosis: Urinary retention Presentation: 06/13 06:48 Chief complaint: EMS states: URINARY RETENTION AFTER GIBSON REMOVAL <12 HR AGO. bp Coronavirus screen: At this time, the client does not indicate any symptoms associated with coronavirus-19. Ebola Screen: No symptoms or risks identified at this time. Initial Sepsis Screen: Does the patient meet any 2 criteria? No. Patient's initial sepsis screen is negative. Does the patient have a suspected source of infection? No. Patient's initial sepsis screen is negative. Risk Assessment: Do you want to hurt yourself or someone else? Patient reports no desire to harm self or others. Onset of symptoms is unknown. 06:48 Method Of Arrival: EMS: [facility] bp 06:48 Acuity: MARIO 3 bp Triage Assessment: 06:51 General: Appears in no apparent distress. Behavior is calm, cooperative, appropriate bp for age. Pain: Denies pain. Historical: - Allergies: 06:51 Polio Virus Vaccines; bp - PMHx: 06:51 borderline DM; COPD; Hypertension; bp - PSHx: 06:51 multiple ortho; bp - Immunization history:: Adult Immunizations up to date. - Social history:: Smoking status: unknown. Screenin:52 [facility] ED Fall Risk Assessment (Adult) History of falling in the last 3 months, bp including since admission No falls in past 3 months (0 pts). Abuse screen: Denies threats or abuse. Denies injuries from another. Nutritional screening: No deficits noted. Tuberculosis screening: No symptoms or risk factors identified. Assessment: 07:30 Respiratory: Airway is patent Respiratory effort is even, unlabored, Respiratory db pattern is regular, symmetrical. : Reports inability to void, since yesterday. 07:57 Reassessment: Patient appears in no apparent distress at this time. Patient and/or db family updated on plan of care and expected duration. Pain level reassessed. Patient is alert, oriented x 3, equal unlabored respirations, skin warm/dry/pink. General: Appears in no apparent distress. comfortable, Behavior is calm, cooperative. Neuro: Level of Consciousness is awake, alert, obeys commands, Oriented to person, place, time, situation. 08:39 Reassessment: Patient appears in no apparent distress at this time. Patient and/or db family updated on plan of care and expected duration. Pain level reassessed. Patient is alert, oriented x 3, equal unlabored respirations, skin warm/dry/pink. Patient states feeling better. Patient states symptoms have improved. Vital Signs: 06:48 BP 121 / 75; Pulse 74; Resp 18; Temp 98.9; Pulse Ox 97% ; bp 07:00 BP 126 / 82; Pulse 103; Resp 18; Pulse Ox 96% on R/A; db 07:30 BP 129 / 92; Pulse 98; Resp 16; Pulse Ox 100% on R/A; db 08:00 BP 125 / 81; Pulse 92; Resp 18; Pulse Ox 100% on R/A; db ED Course: 06:42 Patient arrived in ED. bp 06:49 Triage completed. bp 06:51 Arm band placed on. bp 06:52 Patient has correct armband on for positive identification. Bed in low position. Call bp light in reach. Side rails up X2. 07:06 Praveen Calderón DO is Attending Physician. ms3 07:56 Courtney Perez, RN is Primary Nurse. db 07:56 Gibson cath inserted, using sterile technique, 16 Fr., by sc, balloon inflated, to db gravity drainage. 08:18 Joseph Gutierrez MD is Referral Physician. ms3 08:39 Provided Education on: follow up instructions, discharge. db 08:39 No provider procedures requiring assistance completed. Patient did not have IV access db during this emergency room visit. Administered Medications: No medications were administered Medication: 08:39 VIS not applicable for this client. db Output: 08:40 Urine: 300ml (Gibson); Total: 300ml. db Outcome: 08:19 Discharge ordered by . ms3 08:39 Discharged to home via wheelchair, db 08:39 Condition: stable 08:39 Discharge instructions given to patient, Instructed on discharge instructions, follow up and referral plans. 08:40 Patient left the ED. db Signatures: Wyatt Rose RN RN bp Praveen Calderón DO DO ms3 Courtney Perez, FIONA RN db
[2023-06-13 08:56] VITALS: TEMP 98.9
[2023-06-13 08:59] VITALS: O2SAT 100
[2023-06-13 09:00] VITALS: BP 125/81
== END 2023-06-13 08:40 | disposition home or self-care (01) ==
LOC: ER 06:15
DX: R33.9 Retention of urine, unspecified (principal); Z88.7 Allergy status to serum and vaccine
CPT/HCPCS: 51702; 99284

== ENCOUNTER 2023-07-28 19:05 | Inpatient (IN) | payer OTHER ==
[2023-07-28] MEDS ORDERED: CEFTRIAXONE 1000 MG/VIAL ONE (19:54)
[2023-07-28] MEDS ORDERED: NA CHLORIDE 0.9% 100 ML ONE (19:55)
[2023-07-28] MEDS ORDERED: ACETAMINOPHEN 500 MG TAB ONE (19:55)
[2023-07-28] MEDS ORDERED: NA CHLORIDE 0.9% 2,000 ML ONE (19:55)
[2023-07-28 20:01] LABS: Hematocrit 40.6 % (39.6-49.0); MCV 92.9 fL (80-100); MPV 6.4 fL (7.6-11.3); Platelets 372 thou/uL (152-406); RBC Red Blood Cell Count 4.37 M/uL (4.33-5.43)
[2023-07-28 20:14] LABS: Protime INR 1.17
[2023-07-28 20:21] LABS: Albumin 3.2 g/dL (3.4-5.0); Bilirubin Total 0.6 mg/dL (0.2-1.0); Protein, Total 7.6 g/dL (6.4-8.2)
[2023-07-28 21:23] LABS: Specific Gravity 1.011 (1.005-1.030); Urine Bacteria None Seen /HPF (<20); Urine Bilirubin NEGATIVE (Negative); Urine Blood 2+ (Negative); Urine Clarity Extremely Turbid (Clear); Urine Color Light-Orange (Yellow); Urine Glucose NEGATIVE (Negative); Urine Protein 1+ (Negative); Urine RBC >50 /HPF (None Seen); Urine Urobilinogen Normal (Normal); Urine WBC Clump Many /HPF (None Seen)
[2023-07-28] MEDS ORDERED: METRONIDAZOLE 500mg IVPB 500 MG/100 ML BAG IV ONE (21:28)
[2023-07-28 21:36] LABS: SARS-CoV-2 Antigen Rapid Res Negative (Negative)
--- NOTE | 2023-07-28 22:15 | RAD REPORT ---
EXAM DESCRIPTION: CT - Abdomen Pelvis Wo Contrast - 07/28/2023 10:04 pm CLINICAL HISTORY: Abdominal pain. PYELONEPHRITIS COMPARISON: <Comparisons> TECHNIQUE: CT imaging of the abdomen and pelvis was performed without contrast. Solid organ, bowel a nd vascular assessment is limited due to lack of IV and oral contrast. All CT scans are performed using dose optimization technique as appropriate and may include automated exposure control or mA/KV adjustment according to patient size. FINDINGS: Emphysematous lung bases.Small hiatal hernia. The liver, spleen, pancreas, adrenal glands and kidneys are within normal limits for a limited non-co ntrast examination. No bowel obstruction, free air, free fluid or abscess. Significant stool is retained throughout the c olon. Moderate colonic diverticulosis. The appendix is normal. Bentley catheter decompresses the urinar y bladder. Mild aortoiliac atherosclerosis. The osseous structures are within normal limits. IMPRESSION: No acute intra-abdominal or pelvic findings. Moderate stool is present throughout the colon. A limited non-contrast examination was performed as detailed.
[2023-07-28] MEDS ORDERED: HYDROCODONE/APAP 5/325 MG TAB ONE (22:47)
--- NOTE | 2023-07-28 23:16 | ER ---
Nurse's Notes [facility] Name: Shawn Gant Age: 78 yrs Sex: Male : 1945 Arrival Date: 07/28/2023 Time: 19:05 Bed 8 Private MD: Diagnosis: Pyelonephritis acute;Physical debility, COPD, complications of diabetes, complications of Do catheter, acute urinary retention Presentation: 07/28 19:08 Chief complaint: Patient states: Burning w/ urination, urinary frequency, chills and ph intermittent lower abdominal pain, had Do removed approx 1 week ago. Coronavirus screen: Vaccine status: Patient reports receiving the 2nd dose of the covid vaccine. Ebola Screen: No symptoms or risks identified at this time. Initial Sepsis Screen: Does the patient meet any 2 criteria? Yes Does the patient have a suspected source of infection? Yes: Dysuria/Frequency/Urgency/UTI. Risk Assessment: Do you want to hurt yourself or someone else? Patient reports no desire to harm self or others. Onset of symptoms was July 28, 2023. 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 19:08 Method Of Arrival: EMS: [facility] ph 19:08 Acuity: MARIO 3 ph Triage Assessment: 19:12 General: Appears in no apparent distress. Behavior is calm, cooperative, Reports chills ph for. Pain: Complains of pain in suprapubic area. Neuro: Level of Consciousness is awake, alert, obeys commands, Oriented to person, place, time, situation. : Reports burning with urination, urinary frequency. Historical: - Allergies: 19:12 Polio Virus Vaccines; ph - PMHx: 19:12 borderline DM; COPD; Hypertension; ph - PSHx: 19:12 multiple ortho; ph - Immunization history:: Adult Immunizations unknown. - Social history:: Smoking status: Patient denies any tobacco usage or history of. Screenin:00 [facility] ED Fall Risk Assessment (Adult) History of falling in the last 3 months, la4 including since admission No falls in past 3 months (0 pts). [facility] ED Fall Risk Assessment (Adult) History of falling in the last 3 months, including since admission Confusion or Disorientation No (0 pts) Intoxicated or Sedated No (0 pts) Impaired Gait No (0 pts) Mobility Assist Device Used No (0 pt) Altered Elimination Yes (1 pt) Score/Fall Risk Level 3 or more points = High Risk Maintained a safe environment, Educated pt \T\ family on fall prevention, incl call for assistance when getting out of bed, Provided non-skid footwear, Hourly rounding (assess needs \T\ fall precautionary measures) done. Abuse screen: Denies threats or abuse. Denies injuries from another. Nutritional screening: No deficits noted. Tuberculosis screening: No symptoms or risk factors identified. Assessment: 19:00 General: Appears in no apparent distress. uncomfortable, Behavior is calm, cooperative, la4 appropriate for age. 19:00 Pain: Complains of pain in pelvis Pain does not radiate. Pain currently is 1 out of 10 la4 on a pain scale. Quality of pain is described as burning, Pain began 2-3 days ago. Is continuous. Neuro: No deficits noted. Shepard Agitation-Sedation Scale (RASS): 0 - Alert and Calm Level of Consciousness is awake, alert, obeys commands, Oriented to person, place, time, situation, Appropriate for age. Cardiovascular: No deficits noted. Denies chest pain, Heart tones S1 S2 Capillary refill < 3 seconds is brisk Patient's skin is warm and dry. Pulses are all present. Rhythm is regular. Respiratory: No deficits noted. Airway is patent Respiratory effort is even, unlabored, Respiratory pattern is regular, symmetrical, tachypnea Breath sounds are clear bilaterally. GI: No deficits noted. No signs and/or symptoms were reported involving the gastrointestinal system. : Genitalia appear normal. 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 New do to be placed. notified. Vital Signs: 19:00 BP 111 / 66; Pulse 121; Resp 24; Temp 100.3(O); Pulse Ox 93% on R/A; la4 19:08 BP 111 / 66; Pulse 117; Resp 18; Temp 99; Pulse Ox 94% on R/A; ph 19:16 BP 108 / 71; Pulse 110; Resp 24; Pulse Ox 95% on R/A; la4 19:30 BP 108 / 74; Pulse 109; Resp 22; Pulse Ox 95% ; la4 20:00 BP 127 / 75; Pulse 106; Resp 24; Pulse Ox 97% on R/A; la4 20:30 BP 119 / 62; Pulse 96; Resp 20; Pulse Ox 95% on R/A; la4 21:00 BP 122 / 70; Pulse 94; Pulse Ox 98% ; la4 21:21 Temp 99.1(O); la4 22:30 BP 119 / 76; Pulse 89; Pulse Ox 98% ; la4 23:28 BP 123 / 76; Pulse 79; Resp 20; Pulse Ox 96% ; Pain 5/10; la4 07/29 00:05 BP 106 / 62; Pulse 87; Resp 22; Pulse Ox 94% on R/A; la4 00:30 BP 92 / 74; Pulse 88; Resp 20; Pulse Ox 97% ; la4 23:28 Pain Scale: Adult la4 Whitestone Coma Score: 07/28 20:00 Eye Response: spontaneous(4). Motor Response: obeys commands(6). Verbal Response: la4 oriented(5). Total: 15. 07/29 00:05 Eye Response: spontaneous(4). Motor Response: obeys commands(6). Verbal Response: la4 oriented(5). Total: 15. 00:30 Eye Response: spontaneous(4). Motor Response: obeys commands(6). Verbal Response: la4 oriented(5). Total: 15. ED Course: 07/28 19:06 Patient arrived in ED. ph 19:12 Triage completed. ph 19:12 Arm band placed on Patient placed in an exam room, on a stretcher. ph 19:39 Dougie Turner MD is Attending Physician. ec2 19:48 Franklin Jackson RN is Primary Nurse. la4 20:00 No apparent distress. Awaiting lab results. la4 20:00 Patient has correct armband on for positive identification. Fall risk band placed. la4 Placed in gown. Bed in low position. Call light in reach. Side rails up X2. Provided Education on: Do catheter and plan of care. Client placed on continuous cardiac and pulse oximetry monitoring. NIBP monitoring applied. 20:00 No provider procedures requiring assistance completed. Do cath inserted, using la4 sterile technique, 18 Fr., by wv, balloon inflated, to gravity drainage, urine specimen collected. returned cloudy urine. Patient tolerated well. Sterile procedure maintained and urine specimen sent for testing. Inserted saline lock: 18 gauge in right forearm, using aseptic technique. Blood collected. 20:24 Attending Physician role handed off by Dougie Turner MD sp4 20:24 Brandon Chiang MD is Attending Physician. sp4 20:54 Influenza Screen (a \T\ B) Sent. la4 21:14 Attending Physician role handed off by Brandon Chiang MD ec2 21:14 Dougie Turner MD is Attending Physician. ec2 21:25 Attending Physician role handed off by Dougie Turner MD sp4 21:25 Brandon Chiang MD is Attending Physician. sp4 22:06 CT Abd/Pelvis - Without Contrast In Process Unspecified. EDMS 22:[address] with do catheter in place but disconnected from bedside bag. Pt la4 states that the do became disconnected during his CT. Bed is noted to be wet. No bleeding or trauma noted to the penis. Do catheter securement device remains intact to right thigh. 23:14 Jack Alarcon MD is Hospitalizing Provider. sp4 07/29 00:48 IV discontinued, intact, bleeding controlled, No redness/swelling at site. Pressure la4 dressing applied. Administered Medications: 07/28 20:54 Drug: Acetaminophen PO 1000 mg PO once Route: PO; la4 20:54 Drug: Rocephin IV 1 grams IV at calculated rate once; Given slow IV push per pharmacy la4 instructions Route: IV; Rate: calculated rate; Site: right forearm; 20:54 Drug: NS 0.9% IV 1000 ml IV at 1 bolus Per protocol; 1000 mL bolus Route: IV; Rate: 1 la4 bolus; Site: right forearm; 21:40 Drug: metroNIDAZOLE IVPB 500 mg 100 ml IVPB at 200 ml/hr once over 30 mins Volume: 100 nw1 ml; Route: IVPB; Rate: 200 ml/hr; Infused Over: 30 mins; Site: right forearm; 23:28 Follow up: BP 123 / 76; Pulse 79 bpm; Resp 20 bpm; Pulse Ox 96% ; Pain 5/10 Adult; la4 Response: No adverse reaction; No change in condition; IV Status: Completed infusion; IV Intake: 100ml ; midsternal chest pain that is reported as sharp but denies increased pain with deep breath or SOB caused by pain 07/29 00:52 Follow up: Response: No adverse reaction; Marked relief of symptoms; IV Status: la4 Completed infusion; IV Intake: 100ml 07/28 23:06 Drug: HYDROcodone-acetaminophen PO 5 mg-325 mg 1 tabs PO once Route: PO; la4 07/29 00:52 Follow up: Response: No adverse reaction; Marked relief of symptoms la4 07/28 23:27 Drug: Ondansetron PO 4 mg PO once Route: PO; la4 07/29 00:52 Follow up: Response: No adverse reaction; Marked relief of symptoms la4 07/28 23:27 Drug: D5-NS IV 1000 ml IV at 125 ml/hr continuous Route: IV; Rate: 125 ml/hr; Site: la4 right forearm; Medication: 20:00 VIS not applicable for this client. la4 Intake: 23:28 IV: 100ml; Total: 100ml. la4 07/29 00:52 IV: 100ml; Total: 200ml. la4 Output: 07/28 21:00 Urine: 600ml (Do); Total: 600ml. la4 Outcome: 23:15 Decision to Hospitalize by Provider. sp4 07/29 00:47 Admitted to Med/surg accompanied by nurse, via stretcher, room 402, with chart, Report la4 called to Pawan JAIMES Condition: stable Instructed on the need for admit, Demonstrated understanding of need for admission 00:50 Patient left the ED. ca4 Signatures: Dispatcher [employer] EDMS Tiffanie Clements RN RN Brandon Chiang MD MD sp4 Dougie Turner MD MD ec2 Franklin Jackson RN RN la4 Amberly Galeas RN RN nw1 Corrections: (The following items were deleted from the chart) 07/28 21:38 20:54 SARS-COV-2 RT PCR+MOL.LAB.JOAN drawn and sent. ca4 EDVT
--- NOTE | 2023-07-28 23:16 | EDPHYS ---
Physician Documentation [facility] Name: Shawn Gant Age: 78 yrs Sex: Male : 1945 Arrival Date: 07/28/2023 Time: 19:05 Bed 8 Private MD: ED Physician Brandon Chiang HPI: 07/28 19:46 This 78 yrs old Male presents to ER via EMS with complaints of Pain With ec2 Urination. 19:46 Patient arrives today for evaluation of dysuria. Patient recently had a Bentley catheter ec2 in place that was removed last week. Patient reports dysuria as well as subjective fevers and chills. Denies any significant abdominal pain, denies any vomiting or diarrhea.. 21:15 PMH - Historical: Allergies: Polio Virus Vaccines; bp PMHx: borderline DM; COPD; ec2 Hypertension; bp PSHx: multiple ortho;. 23:20 Medications - Medications: Atorvastatin 40 mg at bedtime, ProAir 2 puffs by mouth every sp4 4 hours, albuterol Atrovent nebulizer every 4 hours as needed, alprazolam 2 mg 1/3rd of that up to 3 times daily, aspirin 81 mg daily, Perforomist nebulizer 2 times daily, cyclobenzaprine 5 mg at bedtime, Trelegy inhaler 1 puff daily, fluticasone nasal spray 2 puffs in each nostril daily, Folbic 1 tablet daily, metformin 500 mg twice daily, metoprolol 25 mg twice daily, montelukast 10 mg daily, omeprazole 40 mg daily, paroxetine 40 mg daily, sucralfate 1 g liquid before each meal and at bedtime, and Flomax 0.4 mg daily. Historical: - Allergies: 19:12 Polio Virus Vaccines; ph - PMHx: 19:12 borderline DM; COPD; Hypertension; ph - PSHx: 19:12 multiple ortho; ph - Immunization history:: Adult Immunizations unknown. - Social history:: Smoking status: Patient denies any tobacco usage or history of. ROS: 19:46 Constitutional: as per hpi ec2 Exam: 19:46 Constitutional: GEN: NAD Head: atraumatic Eyes: EOMI Ears: External ears are ec2 normal. CV: Tachycardia LUNGS: no respiratory distress ABD: non-distended, soft, nontender, not guarding, not rigid SKIN: no evidence of rashes MSK: no evidence of trauma NEURO: moves all extremities equally 21:14 ECG was reviewed by the Attending Physician. EG at 2051 reveals sinus rhythm with ec2 premature atrial complexes, left atrial deviation, EKG rate [address] elevation or depression. Vital Signs: 19:00 BP 111 / 66; Pulse 121; Resp 24; Temp 100.3(O); Pulse Ox 93% on R/A; la4 19:08 BP 111 / 66; Pulse 117; Resp 18; Temp 99; Pulse Ox 94% on R/A; ph 19:16 BP 108 / 71; Pulse 110; Resp 24; Pulse Ox 95% on R/A; la4 19:30 BP 108 / 74; Pulse 109; Resp 22; Pulse Ox 95% ; la4 20:00 BP 127 / 75; Pulse 106; Resp 24; Pulse Ox 97% on R/A; la4 20:30 BP 119 / 62; Pulse 96; Resp 20; Pulse Ox 95% on R/A; la4 21:00 BP 122 / 70; Pulse 94; Pulse Ox 98% ; la4 21:21 Temp 99.1(O); la4 22:30 BP 119 / 76; Pulse 89; Pulse Ox 98% ; la4 23:28 BP 123 / 76; Pulse 79; Resp 20; Pulse Ox 96% ; Pain 5/10; la4 07/29 00:05 BP 106 / 62; Pulse 87; Resp 22; Pulse Ox 94% on R/A; la4 00:30 BP 92 / 74; Pulse 88; Resp 20; Pulse Ox 97% ; la4 23:28 Pain Scale: Adult la4 [place] Coma Score: 07/28 20:00 Eye Response: spontaneous(4). Motor Response: obeys commands(6). Verbal Response: la4 oriented(5). Total: 15. 07/29 00:05 Eye Response: spontaneous(4). Motor Response: obeys commands(6). Verbal Response: la4 oriented(5). Total: 15. 00:30 Eye Response: spontaneous(4). Motor Response: obeys commands(6). Verbal Response: la4 oriented(5). Total: 15. MDM: 07/28 19:39 Patient medically screened. ec2 19:46 Data reviewed: vital signs. ED course: Patient arrives today for evaluation of dysuria ec2 with in the setting of recent urinary instrumentation. Will obtain a septic workup given the tachycardia and will empirically treat with antibiotics for possible UTI. . 23:14 ED course: CT - EXAM DESCRIPTION: CT - Abdomen Pelvis Wo Contrast - 07/28/2023 10:04 pm sp4 CLINICAL HISTORY: Abdominal pain. PYELONEPHRITIS COMPARISON: TECHNIQUE: CT imaging of the abdomen and pelvis was performed without contrast. Solid organ, bowel and vascular assessment is limited due to lack of IV and oral contrast. All CT scans are performed using dose optimization technique as appropriate and may include automated exposure control or mA/KV adjustment according to patient size. FINDINGS: Emphysematous lung bases.Small hiatal hernia. The liver, spleen, pancreas, adrenal glands and kidneys are within normal limits for a limited noncontrast examination. No bowel obstruction, free air, free fluid or abscess. Significant stool is retained throughout the colon. Moderate colonic diverticulosis. The appendix is normal. Bentley catheter decompresses the urinary bladder. Mild aortoiliac atherosclerosis. The osseous structures are within normal limits. IMPRESSION: No acute intra-abdominal or pelvic findings. Moderate stool is present throughout the colon. A limited non-contrast examination was performed as detailed.. 07/28 19:40 Order name: Blood Culture Adult (2) ec2 07/28 19:40 Order name: CBC with Diff; Complete Time: 20:24 2 07/28 19:40 Order name: CMP; Complete Time: 20:24 2 07/28 19:40 Order name: Lactate w/ 2H reflex if indic.; Complete Time: 20:24 2 07/28 19:40 Order name: Protime (+inr); Complete Time: 20:24 ec2 07/28 19:40 Order name: Ptt, Activated; Complete Time: 20:24 ec2 07/28 19:40 Order name: Urinalysis w/ reflexes; Complete Time: 22:43 ec2 07/28 20:24 Order name: Influenza Screen (a \T\ B); Complete Time: 22:43 sp4 07/28 21:14 Order name: Glucose, Ancillary Testing; Complete Time: 21:16 EDMS 07/28 21:27 Order name: Urine Culture EDVA 07/28 21:36 Order name: SARS-COV-2 Antigen Rapid; Complete Time: 22:43 EDMS 07/28 21:25 Order name: CT Abd/Pelvis - Without Contrast; Complete Time: 22:43 sp4 07/28 19:40 Order name: EKG; Complete Time: 19:40 ec2 07/28 19:40 Order name: Accucheck; Complete Time: 21:16 ec2 07/28 19:40 Order name: Cardiac monitoring; Complete Time: 20:20 ec2 07/28 19:40 Order name: EKG - Nurse/Tech; Complete Time: 20:54 ec2 07/28 19:40 Order name: IV Saline Lock - Large Bore; Complete Time: 20:20 ec2 07/28 19:40 Order name: Labs collected and sent; Complete Time: 20:20 ec2 07/28 19:40 Order name: O2 Per Protocol; Complete Time: 20:20 ec2 07/28 19:40 Order name: O2 Sat Monitoring; Complete Time: 20:20 ec2 07/28 19:40 Order name: Vital Signs; Complete Time: 21:16 ec2 07/28 20:05 Order name: Cath; Complete Time: 20:54 ec2 EC:14 Rate is 91 beats/min. Rhythm is irregular, Normal Sinus Rhythm with PACs. Left axis ec2 deviation noted. NC interval is normal. QRS interval is normal. QT interval is normal. No Q waves. T waves are Normal. No ST changes noted. Clinical impression: No evidence of ischemia. Interpreted by me. Reviewed by me. Administered Medications: 20:54 Drug: Acetaminophen PO 1000 mg PO once Route: PO; la4 20:54 Drug: Rocephin IV 1 grams IV at calculated rate once; Given slow IV push per pharmacy la4 instructions Route: IV; Rate: calculated rate; Site: right forearm; 20:54 Drug: NS 0.9% IV 1000 ml IV at 1 bolus Per protocol; 1000 mL bolus Route: IV; Rate: 1 la4 bolus; Site: right forearm; 21:40 Drug: metroNIDAZOLE IVPB 500 mg 100 ml IVPB at 200 ml/hr once over 30 mins Volume: 100 nw1 ml; Route: IVPB; Rate: 200 ml/hr; Infused Over: 30 mins; Site: right forearm; 23:28 Follow up: BP 123 / 76; Pulse 79 bpm; Resp 20 bpm; Pulse Ox 96% ; Pain 5/10 Adult; la4 Response: No adverse reaction; No change in condition; IV Status: Completed infusion; IV Intake: 100ml ; midsternal chest pain that is reported as sharp but denies increased pain with deep breath or SOB caused by pain 07/29 00:52 Follow up: Response: No adverse reaction; Marked relief of symptoms; IV Status: la4 Completed infusion; IV Intake: 100ml 07/28 23:06 Drug: HYDROcodone-acetaminophen PO 5 mg-325 mg 1 tabs PO once Route: PO; la4 07/29 00:52 Follow up: Response: No adverse reaction; Marked relief of symptoms la4 07/28 23:27 Drug: Ondansetron PO 4 mg PO once Route: PO; la4 07/29 00:52 Follow up: Response: No adverse reaction; Marked relief of symptoms la4 07/28 23:27 Drug: D5-NS IV 1000 ml IV at 125 ml/hr continuous Route: IV; Rate: 125 ml/hr; Site: la4 right forearm; Disposition Summary: 07/28/23 23:15 Hospitalization Ordered Notes: Hospitalization Status: Inpatient Admission sp4 Provider: Jack Alarcon sp4 [facility] Condition: Stable sp4 Problem: new sp4 Symptoms: have improved sp4 Bed/Room Type: Standard sp4 Room Assignment: 402(07/28/23 23:39) cg Diagnosis - Pyelonephritis acute sp4 - Physical debility, COPD, complications of diabetes, complications of Bentley sp4 catheter, acute urinary retention Forms: - Medication Reconciliation Form sp4 - SBAR form sp4 - Leadership Thank You Letter sp4 Signatures: Dispatcher [employer] EDTiffanie Hunter RN RN Linda Martin RN RN cg Brandon Chiang MD MD sp4 Dougie Turner MD MD ec2 Franklin Jackson RN RN la4 Amberly Galeas RN RN nw1 Corrections: (The following items were deleted from the chart) 21:23 20:58 SARS-COV-2 Antigen Rapid+I.LAB.BRZ ordered. EDMS EDMS 21:38 20:25 SARS-COV-2 RT PCR+MOL.LAB.BRZ ordered. EDMS EDMS 23:39 23:15 sp4 cg
[2023-07-28] MEDS ORDERED: D5 0.9 NS 1,000 ML IV ONE (23:21)
[2023-07-28] MEDS ORDERED: ONDANSETRON 4 MG (ODT) TAB ONE (23:21)
[2023-07-29] MEDS ORDERED: ACETAMINOPHEN 325 MG TABLET PO PRN (01:17)
[2023-07-29] MEDS ORDERED: ALPRAZOLAM 0.25 MG TABLET PO PRN (01:17)
[2023-07-29] MEDS ORDERED: MORPHINE 2 MG/ML SYR IV PRN (01:17)
[2023-07-29 01:50] VITALS: BMI 29.3
[2023-07-29] MEDS: HYDROCODONE/APAP 5/325 MG TAB PO PRN ×3 (03:18→23:44)
[2023-07-29] MEDS ORDERED: ONDANSETRON 4 MG/2 ML VIAL IV PRN (05:00)
[2023-07-29] MEDS: METRONIDAZOLE 500mg IVPB 500 MG/100 ML BAG IV SCH ×3 (05:52→20:05)
[2023-07-29] MEDS: D5 0.9 NS 1,000 ML IV SCH ×3 (07:30→20:04)
[2023-07-29] MEDS: INSULIN REGULAR (HUMAN) 100 UNIT/ML SQ SCH ×4 (07:30→20:06)
[2023-07-29] MEDS ORDERED: CEFTRIAXONE 1,000 MG in NA CHLORIDE 0.9% 50 ML IVPB SCH (09:00)
--- NOTE | 2023-07-29 13:06 | HP ---
Date of Admission: 07/28/2023 Chief Complaint: Trouble voiding and burning sensation on urination. History Of Present Illness: Mr. Gant is a pleasant 78-year-old male patient who has benign prostatic hypertrophy with lower urinary tract symptoms in terms of trouble emptying his bladder and he has been under care of Dr. Verduzco, urologist in [place]. The patient had indwelling Bentley catheter for almost 2 months as he describes and says about a month ago, he saw Dr. Verduzco at his office and his Bentley catheter was removed and he was sent home. In last 1 week after the catheter came out, he had noted increasing trouble with emptying bladder and every time he would go to the bathroom, very small amount of urine would come out. Denies any blood in urine. No nausea. No vomiting. As of yesterday, he started having fever and chills. The patient has had some burning sensation and pain with urination in last 1 week. Once he started having fever and chills, he came into emergency room. After he was evaluated, he was admitted to the hospital with pyelonephritis problem. Allergies: NO KNOWN ALLERGIES. Medications: Albuterol inhaler 2 puffs every 4 hours as needed. Albuterol and Atrovent nebulizer treatment every 4 hours as needed. Sotalol 80 mg 2 times a day. Tamsulosin 0.4 mg takes 2 capsules daily. Finasteride 5 mg daily. Montelukast 10 mg daily. Folbic 1 tablet daily. Trelegy inhaler 1 puff daily. Aspirin 81 mg daily. Alprazolam 2 mg, takes 1/3 tablet three times a day as needed. Review of Systems: Genitourinary: As mentioned above. Constitutional: As mentioned above. All other systems reviewed and negative. Past Medical History: Significant for headache, type 2 diabetes mellitus, COPD, hypertension, hyperlipidemia, diverticulosis, benign prostatic hypertrophy, osteoarthritis at multiple sites, anxiety, panic attacks. Past Surgical History: Hernia repair and hip surgery. Social History: Prior history of smoking and use of alcohol occasional. Family History: Mother had lung cancer. Physical Examination: Vital Signs: Temperature 98, pulse 102, respiratory rate 17, blood pressure 131/68, oxygen saturation 94% on 2 L nasal cannula oxygen. Height 5 feet 9 inches, weight 199 pounds. General: Awake, alert, oriented, not in distress. HEENT: Head atraumatic, normocephalic. Conjunctivae nonerythematous. Sclerae white. Mouth, no thrush or edema noted. Ears/Nose, no mass, lesion, discharge noted. Neck: Supple. No JVD, lymph nodes, bruit, thyromegaly noted. Lungs: Bilateral good equal air entry. Clear to auscultation. No rhonchi. No rales. Heart: Normal heart sounds, no murmur or gallop. Abdomen: Soft, bowel sounds normal. No guarding, rigidity, tenderness, mass, hepatosplenomegaly, distention, or bruit noted. Extremities: No leg edema. No calf tenderness. Skin: No rash, ulcer, cellulitis. Lymphatics: No lymph node enlargement in neck, supraclavicular, infraclavicular region. Neuro: No focal neurological deficit. Chest: Unremarkable. External Genitalia: Shows presence of Bentley catheter draining clear yellow urine. Rectal: Deferred. Laboratory Data: White count 10.10, hemoglobin 14.3, platelets 372. Sodium 129, potassium 4, chloride 97, bicarb 27, BUN 17, creatinine 0.88, glucose 122. Liver function tests unremarkable. Lactic acid 0.9. COVID-19 test negative. Urinalysis: Leukocyte esterase 500, wbc more than 50. CT scan of abdomen and pelvis result reviewed. Impression: 1. Acute pyelonephritis. 2. Chronic obstructive pulmonary disease. 3. Hypertension. 4. Type 2 diabetes mellitus. 5. Hyperlipidemia. 6. Benign prostatic hypertrophy with lower urinary tract symptoms. 7. Diverticulosis. 8. Generalized anxiety disorder. 9. Osteoarthritis, multiple sites. Plan: Admit patient to hospital for further evaluation and management of this problem. Patient is appropriate for inpatient and is expected to spend 2 midnights in the hospital. We will go ahead and continue empiric antibiotic which is ceftriaxone and follow up on urine culture results. Once final result is available, then we will decide about culture specific antibiotic. We will go ahead and continue his home medications for COPD and COPD problem is stable at this time. Does not require any further intervention. For his benign prostatic hypertrophy, he is on finasteride and tamsulosin. We will continue those at this time. We will continue his anxiety medication and no need for further intervention. Physical therapy was ordered to help ambulate and DVT prophylaxis will be given using Lovenox. Details and plan of treatment discussed with the patient. INDRA/JUDY Voice ID: [id number] [place]
[2023-07-29] MEDS: CEFTRIAXONE 1,000 MG in NA CHLORIDE 0.9% 50 ML IVPB SCH (20:05)
[2023-07-29] MEDS: SOTALOL HCL 80 MG TAB PO SCH (20:05)
[2023-07-30] MEDS: ALBUTEROL 2.5 MG/3 ML NEB SOL NEB PRN ×3 (00:20→13:21)
[2023-07-30] MEDS: METRONIDAZOLE 500mg IVPB 500 MG/100 ML BAG IV SCH ×3 (05:50→21:14)
[2023-07-30] MEDS: INSULIN REGULAR (HUMAN) 100 UNIT/ML SQ SCH ×4 (07:30→21:00)
[2023-07-30 07:54] LABS: Hematocrit 38.3 % (39.6-49.0); Lymphocytes % 13.2 % (15.3-44.8); MCV 93.9 fL (80-100); Platelets 310 thou/uL (152-406); RBC Red Blood Cell Count 4.08 M/uL (4.33-5.43)
[2023-07-30 08:13] LABS: Magnesium 1.9 mg/dL (1.6-2.4); Potassium 3.4 mEq/L (3.5-5.1)
[2023-07-30] MEDS: CEFTRIAXONE 1,000 MG in NA CHLORIDE 0.9% 50 ML IVPB SCH ×2 (08:41→21:14)
[2023-07-30] MEDS: FINASTERIDE 5 MG TAB PO SCH (08:41)
[2023-07-30] MEDS: MONTELUKAST 10 MG TAB PO SCH (08:41)
[2023-07-30] MEDS: SOTALOL HCL 80 MG TAB PO SCH ×2 (08:41→21:14)
[2023-07-30] MEDS: FOLBIC 1 TAB PO SCH (08:41)
[2023-07-30] MEDS: TAMSULOSIN 0.4 MG SR CAP PO SCH (08:41)
[2023-07-30] MEDS: ASPIRIN EC 81 MG TAB PO SCH (08:41)
[2023-07-30] MEDS: D5 0.9 NS 1,000 ML IV SCH (08:42)
[2023-07-30] MEDS ORDERED: POTASSIUM 25 MEQ EFFERV TAB PO ONE (11:00)
--- NOTE | 2023-07-30 12:36 | PN ---
Date of Progress Note: 07/30/2023 Subjective: Patient was seen this morning for followup. No new complaints or problems reported by t he patient. He slept well last night. Denies any new complaints. No abdominal pain, nausea, vomiti ng. Objective: Vital Signs: Reviewed. HEENT: Unremarkable. Lungs: Clear to auscultation. Heart: Sounds normal. Abdomen: Soft. Bowel sounds normal. No guarding, rigidity, tenderness, distention. Extremities: No leg edema. Laboratory Data: White count 7.7, hemoglobin 13.1, platelets 310. Sodium 134, potassium 3.4, chlori de 104, bicarb 27, BUN 8, creatinine 0.90, glucose 115. Hemoglobin A1c is pending. Urine culture pe nding. Blood culture remains negative. Impression: 1.Acute pyelonephritis. 2.Hypokalemia. 3.Anemia, unspecified. 4.Type 2 diabetes mellitus. 5.Benign prostatic hypertrophy with lower urinary tract symptoms. Plan: We will go ahead and continue his current antibiotics. Discontinue IV fluid. Follow up on ur ine culture results. Hopefully, it will be ready tomorrow, then we will decide about culture specifi c antibiotic that the patient can go home with. Currently, he is on ceftriaxone and we will continue that. Replace potassium per protocol. Continue tamsulosin and finasteride and other current medication for COPD. Plan of treatment discussed with him. I will see him tomorrow for followup. INDRA/MODL Voice ID: [id number] Report ID: [id number]
[2023-07-30] MEDS: HYDROCODONE/APAP 5/325 MG TAB PO PRN ×2 (13:02→21:41)
[2023-07-30] MEDS ORDERED: ALPRAZOLAM 0.5 MG TABLET PO PRN (13:08)
[2023-07-30 17:22] LABS: Potassium 3.8 mEq/L (3.5-5.1)
[2023-07-31] MEDS: METRONIDAZOLE 500mg IVPB 500 MG/100 ML BAG IV SCH ×3 (06:11→22:17)
[2023-07-31] MEDS: INSULIN REGULAR (HUMAN) 100 UNIT/ML SQ SCH ×4 (07:30→21:00)
[2023-07-31] MEDS: methocarbamoL 500 MG TAB PO SCH ×3 (11:00→21:41)
[2023-07-31] MEDS: FINASTERIDE 5 MG TAB PO SCH (11:16)
[2023-07-31] MEDS: ASPIRIN EC 81 MG TAB PO SCH (11:16)
[2023-07-31] MEDS: CEFTRIAXONE 1,000 MG in NA CHLORIDE 0.9% 50 ML IVPB SCH ×2 (11:16→21:42)
[2023-07-31] MEDS: SOTALOL HCL 80 MG TAB PO SCH ×2 (11:16→21:42)
[2023-07-31] MEDS: TAMSULOSIN 0.4 MG SR CAP PO SCH (11:17)
[2023-07-31] MEDS: FOLBIC 1 TAB PO SCH (11:19)
[2023-07-31] MEDS: MONTELUKAST 10 MG TAB PO SCH (11:19)
--- NOTE | 2023-07-31 11:47 | PN ---
Date of Progress Note: 07/31/2023 Subjective: The patient was seen this morning for followup. No new complaints or problems reported by patient. This morning, he was sitting at bedside. Denies any new complaints. Objective: Vital Signs: Reviewed. HEENT: Unremarkable. Lungs: Clear to auscultation. Heart: Sounds normal. Abdomen: Soft. Bowel sounds normal. No guarding, rigidity, tenderness, or distention. Extremities: No leg edema. Laboratory Data: Sodium 132, potassium 4, chloride 100, bicarb 27, BUN 9, creatinine 0.75, glucose 9 9. Urine culture is growing gram-negative rods. Definite identification and sensitivity results jenny l be ready tomorrow. Impression: 1.Acute pyelonephritis. 2.Chronic obstructive pulmonary disease. 3.Type 2 diabetes mellitus. 4.Anxiety. 5.Hypertension. Plan: We will go ahead and continue current medications. Continue current antibiotic. Waiting on t he urine culture results, which will be ready tomorrow as per my discussion with microbiology departm ent today. Continues Xanax. Yesterday, Xanax was ordered 0.5 mg 3 times a day as needed for anxiety that has helped. The patient has a Bentley catheter in place draining clear yellow urine and we will plan to discharge him to go home with a Bentley catheter and have the patient follow up with urologist, Dr. Verduzco that he has seen recently for this benign prostatic hypertrophy with lower urinary trac t symptoms. Did have discussion in great detail with him regarding more definitive treatment for his enlarged prostate with help of urologist and that something he will need to continue to follow up [facility] urologist as he is not able to void on his own after removal of Bentley catheter, which happened abo ri a week prior to this admission. Possible discharge to go home tomorrow. Today, physical therapis t came in room to work with the patient and the patient informed me that he really does not need any such help. INDRA/MODL Voice ID: [id number] Report ID: [id number]
--- NOTE | 2023-07-31 17:06 | EKG ---
Test Date: 2023-07-28 Test Time: 20:52:43 Senior Communications Engineer: CITLALY MEASUREMENT RESULTS: Intervals: Rate: 91 MA: 184 QRSD: 88 QT: 350 QTc: 430 [place]: P: 81 MA: 184 QRS: -63 T: 73 INTERPRETIVE STATEMENTS: Sinus rhythm with premature atrial complexes Left axis deviation Septal infarct, age undetermined Abnormal ECG Compared to ECG 05/25/2023 20:41:51 Atrial premature complex(es) now present Sinus tachycardia no longer present Myocardial infarct finding still present Electronically Signed On 07-31-23 16:59:29 SAP TECHNICAL DEVELOPER by Demetrio Aguilar
[2023-07-31] MEDS: HYDROCODONE/APAP 5/325 MG TAB PO PRN (21:48)
[2023-07-31 23:59] VITALS: O2SAT 96
[2023-08-01] MEDS: METRONIDAZOLE 500mg IVPB 500 MG/100 ML BAG IV SCH (06:03)
[2023-08-01] MEDS: INSULIN REGULAR (HUMAN) 100 UNIT/ML SQ SCH (07:30)
[2023-08-01] MEDS: TAMSULOSIN 0.4 MG SR CAP PO SCH (09:20)
[2023-08-01] MEDS: FINASTERIDE 5 MG TAB PO SCH (09:20)
[2023-08-01] MEDS: ASPIRIN EC 81 MG TAB PO SCH (09:20)
[2023-08-01] MEDS: methocarbamoL 500 MG TAB PO SCH (09:21)
[2023-08-01] MEDS: MONTELUKAST 10 MG TAB PO SCH (09:21)
[2023-08-01] MEDS: CEFTRIAXONE 1,000 MG in NA CHLORIDE 0.9% 50 ML IVPB SCH (09:21)
[2023-08-01] MEDS: SOTALOL HCL 80 MG TAB PO SCH (09:21)
[2023-08-01] MEDS: ALBUTEROL 2.5 MG/3 ML NEB SOL NEB PRN (10:13)
[2023-08-01 12:10] VITALS: BP 127/71; TEMP 97.4
--- NOTE | 2023-08-01 20:03 | DS ---
Date of Discharge: 08/01/2023 Disposition: Discharged to go home. Physical Examination: HEENT: Unremarkable. Lungs: Clear to auscultation. Heart: Sounds normal. Abdomen: Soft. Bowel sounds normal. No guarding, rigidity, tenderness, distention. Extremities: No leg edema. Laboratory Data: Urine culture grew Klebsiella. Upon admission on 07/28/2023, white count 10.10, he moglobin 14.3, platelets 372 and on 07/30/2023, white count 7.7, hemoglobin 13.1, platelets 310. Las t chemistry yesterday, sodium 132, potassium 4, chloride 100, bicarb 27, BUN 9, creatinine 0.75, gluc ose 99, and upon admission sodium 129, potassium 4, chloride 97, bicarb 27, BUN 17, creatinine 0.88, glucose 122. Discharge Medications/instructions: 1.Continue all prior home medication. 2.Take Augmentin 875 mg 2 times a day with food for 10 days. 3.Follow up at my office next week. 4.The patient to follow up with his urologist Dr. Verduzco in 2-3 weeks. Hospital Course: This is a 78-year-old very pleasant male patient admitted to the hospital with feve r, chills, and trouble urinating. Please see dictated H and P for more information. After patient w as evaluated in the emergency room, he was admitted to the hospital. The patient had a Bentley cathete r in place for almost 2 months and he had his catheter [facility] a month ago or so. A week prior to this admission, he had his first appointment with urologist Dr Aurea Verduzco and at his office, his Bentley catheter was removed and the patient says that ever since [place] time after he came home, he has been having trouble urinating and he started having fever and chill s and came into our emergency room and was admitted to the hospital with acute pyelonephritis. Septi c workup was done. He was started on IV ceftriaxone. Urine culture and blood culture were done. Bl ood culture remained negative. Urine culture final result came back today showing Klebsiella and sen sitivity results reviewed. Medically, the patient's condition has improved and he is stable for disc harge. I did request physical therapy consultation and over the weekend when physical therapist came by to evaluate and assist him, the patient informed me that he really does not need any physical the rapy for any reason and he refused to work with physical therapist and today after I placed discharge order, he informed nursing staff that he does not feel comfortable going home without evaluation by physical therapist, so we did request Physical Therapy to come by, evaluate him and nurse contacted sabrina cutler after that and informed me that all physical therapy has requested is for patient to use walker and the patient informed nursing staff that he will go ahead and buy a walker on his own and he was disc harged in stable condition after that. The patient was discharged with Bentley catheter and he will de finitely need to have a followup with the urologist for further management of this benign prostatic h ypertrophy with acute lower urinary tract symptoms. Final Diagnoses: 1.Acute pyelonephritis. 2.Benign prostatic hypertrophy with lower urinary tract symptoms. 3.Chronic obstructive pulmonary disease. 4.Hypertension. 5.Type 2 diabetes mellitus. 6.Hyperlipidemia. 7.Diverticulosis. 8.Generalized anxiety disorder. 9.Osteoarthritis, multiple sites. INDRA/MODL Voice ID: [id number] Report ID: [id number]
== END 2023-08-01 13:46 | disposition home or self-care (01) | DRG 690 ==
LOC: ER 19:05 → ERHOLD 23:44 → 4TH 07-29 00:24
PROVIDERS: ADMIT Internal Medicine; ATTEND Internal Medicine
DX: N10 Acute pyelonephritis (principal); B96.1 Klebsiella pneumoniae [K. pneumoniae] as the cause of diseases classified elsewhere; N40.1 Benign prostatic hyperplasia with lower urinary tract symptoms; R33.8 Other retention of urine; R39.14 Feeling of incomplete bladder emptying; J44.9 Chronic obstructive pulmonary disease, unspecified; R53.81 Other malaise; I10 Essential (primary) hypertension; E11.9 Type 2 diabetes mellitus without complications; E78.5 Hyperlipidemia, unspecified; K57.90 Diverticulosis of intestine, part unspecified, without perforation or abscess without bleeding; F41.1 Generalized anxiety disorder; M15.9 Polyosteoarthritis, unspecified; Z79.82 Long term (current) use of aspirin; Z79.899 Other long term (current) drug therapy; Z88.7 Allergy status to serum and vaccine; Z87.891 Personal history of nicotine dependence; Z11.52 Encounter for screening for COVID-19; Z80.1 Family history of malignant neoplasm of trachea, bronchus and lung
CPT/HCPCS: 36415; 51702; 74176; 80048; 80053; 80061; 81001; 82947; 83036; 83605; 83735; 85025; 85610; 85730; 87040; 87077; 87086; 87088; 87186; 87804; 87811; 93005; 94640; 94760; 96365; 96366; 96375; 97110; 97116; 97161; 97530; 99285; J0696; J7030; J7042; J7613; Q0162

== ENCOUNTER 2023-08-18 07:40 | Inpatient (IN) | payer OTHER ==
[2023-08-18 08:09] LABS: Absolute Lymphocytes (CBC) 0.7 K/uL (0.7-4.9); Hematocrit 39.7 % (39.6-49.0); Lymphocytes % 5.4 % (15.3-44.8); MCV 90.8 fL (80-100); MPV 6.6 fL (7.6-11.3); Platelets 299 thou/uL (152-406); RBC Red Blood Cell Count 4.37 M/uL (4.33-5.43)
[2023-08-18] MEDS ORDERED: LEVALBUTEROL 1.25 MG/3 ML NEB ONE (08:09)
[2023-08-18] MEDS ORDERED: IPRATROPIUM BROM 0.5MG/2.5ML ONE (08:09)
[2023-08-18] MEDS ORDERED: METHYLPREDNISOLONE 125 MG INJ ONE (08:09)
[2023-08-18 08:17] LABS: Protime INR 1.23
[2023-08-18 08:23] LABS: Potassium 3.9 mEq/L (3.5-5.1); Protein, Total 6.8 g/dL (6.4-8.2)
--- NOTE | 2023-08-18 08:33 | RAD REPORT ---
EXAM DESCRIPTION: RAD - Chest Single View - 08/18/2023 8:25 am CLINICAL HISTORY: COUGH Chest pain. COMPARISON: Chest Single View dated 05/25/2023; Chest Single View dated 06/18/2022; Chest Single View dated 06/17/2022; Chest Single View dated 06/13/2022 FINDINGS: Portable technique limits examination quality. The lungs are grossly clear. The heart is normal in size. Old left posterior rib fractures are noted. IMPRESSION: No acute intrathoracic process suspected.
[2023-08-18 08:37] LABS: SARS-CoV-2 Antigen Rapid Res Negative (Negative)
[2023-08-18 09:12] LABS: Specific Gravity 1.017 (1.005-1.030); Urine Bacteria 20-50 /HPF (<20); Urine Bilirubin NEGATIVE (Negative); Urine Blood 2+ (Negative); Urine Clarity Extremely Turbid (Clear); Urine Color Light-Orange (Yellow); Urine Glucose NEGATIVE (Negative); Urine Mucus 2+ /HPF (None Seen); Urine Protein 2+ (Negative); Urine RBC >50 /HPF (None Seen); Urine Urobilinogen Normal (Normal); Urine WBC Clump Many /HPF (None Seen); Urine pH 6.5 (5.0-7.0)
[2023-08-18 09:28] LABS: Troponin High Sensitivity 4.7 pg/mL (<58.9)
[2023-08-18] MEDS ORDERED: CEFTRIAXONE 1000 MG/VIAL ONE (09:30)
--- NOTE | 2023-08-18 09:46 | RAD REPORT ---
EXAM DESCRIPTION: CTAbdomen Pelvis W Contrast - 08/18/2023 9:24 am CLINICAL HISTORY: Abdominal pain. UTI COMPARISON: Chest For Pe Angio dated 08/18/2023 TECHNIQUE: Biphasic CT imaging of the abdomen and pelvis was performed with 100 ml non-ionic IV cont rast. All CT scans are performed using dose optimization technique as appropriate and may include automated exposure control or mA/KV adjustment according to patient size. FINDINGS: The lung bases are mildly emphysematous.Small hiatal hernia. The liver, spleen, pancreas, adrenal glands and kidneys are within normal limits. No bowel obstruction, free air, free fluid or abscess. There is mild enhancement seen of the mucosal surface of the colon greatest in the rectosigmoid colon suggesting mild colitis. Scattered colonic di verticulosis is present. The appendix is normal. No evidence of significant lymphadenopathy. Aortoil iac atherosclerosis. No suspicious bony findings. IMPRESSION: There is a mild colitis pattern present, greatest in the rectosigmoid colon. No pneumato sis is present.
--- NOTE | 2023-08-18 09:48 | RAD REPORT ---
EXAM DESCRIPTION: CT - Chest For Pe Angio - 08/18/2023 9:24 am CLINICAL HISTORY: Chest pain. DYSPNEA COMPARISON: Thorax W/ Con dated 06/17/2022; Abdomen Pelvis Wo Contrast dated 07/28/2023; Abdomen P marta W Contrast dated 08/18/2023 TECHNIQUE: CT angiogram of the pulmonary arteries was performed with MIP. All CT scans are performed using dose optimization technique as appropriate and may include automated exposure control or mA/KV adjustment according to patient size. FINDINGS: No evidence of pulmonary thromboembolism. No acute aortic finding demonstrated. Mild diffuse COPD is present. No significant pericardial or pleural fluid. Small hiatal hernia. Old left-sided rib fractures. IMPRESSION: No evidence of pulmonary thromboembolism. Mild diffuse COPD.
--- NOTE | 2023-08-18 09:58 | ER ---
Nurse's Notes [facility] Name: Shawn Gant Age: 78 yrs Sex: Male : 1945 Arrival Date: 08/18/2023 Time: 07:40 Bed 2 Private MD: Diagnosis: UTI/ Urinary tract infection, site not specified;Fever, unspecified;COPD/ Chronic obstructive pulmonary disease with (acute) exacerbation Presentation: 08/18 07:45 Chief complaint: EMS states: fever and chills since last night, has been on antibiotics ko1 for UTI. Coronavirus screen: chills, cough unrelated to allergies, fever, shaking with chills, Client presents with at least one sign or symptom that may indicate coronavirus-19. Standard/surgical mask placed on the client. Ebola Screen: No symptoms or risks identified at this time. Initial Sepsis Screen: Does the patient meet any 2 criteria? No. Patient's initial sepsis screen is negative. Does the patient have a suspected source of infection? No. Patient's initial sepsis screen is negative. Risk Assessment: Do you want to hurt yourself or someone else? Patient reports no desire to harm self or others. Onset of symptoms was August 18, 2023. 07:45 Method Of Arrival: EMS: [facility] ko1 07:45 Acuity: MARIO 3 ko1 07:45 Care prior to arrival: Medication(s) given: Normal saline infusion, 500 mL, IV ko1 initiated. 20 GA, in the right wrist. Triage Assessment: 07:56 General: Appears in no apparent distress. comfortable, Behavior is calm, cooperative, ko1 appropriate for age. Pain: Denies pain. Historical: - Allergies: 07:56 Polio Virus Vaccines; ko1 - PMHx: 07:56 borderline DM; COPD; Hypertension; ko1 - PSHx: 07:56 multiple ortho; ko1 - Immunization history:: Adult Immunizations up to date. - Social history:: Smoking status: Patient denies any tobacco usage or history of. - Family history:: not pertinent. - Hospitalizations: : Patient was recently seen at. Screenin:57 [facility] ED Fall Risk Assessment (Adult) History of falling in the last 3 months, ko1 including since admission No falls in past 3 months (0 pts) Confusion or Disorientation No (0 pts) Intoxicated or Sedated No (0 pts) Impaired Gait No (0 pts) Mobility Assist Device Used No (0 pt) Altered Elimination No (0 pt) Score/Fall Risk Level 0 - 2 = Low Risk Oriented to surroundings, Maintained a safe environment, Educated pt \\T\\ family on fall prevention, incl call for assistance when getting out of bed, Assessed \\T\\ reinforced patient's understanding of fall precautions, Provided non-skid footwear, Hourly rounding (assess needs \\T\\ fall precautionary measures) done, Used ambulatory aids as needed (educated on \\T\\ assisted with), Used gait belt as appropriate. Abuse screen: Denies threats or abuse. Denies injuries from another. Nutritional screening: No deficits noted. Tuberculosis screening: No symptoms or risk factors identified. Assessment: 07:00 General: Appears in no apparent distress. uncomfortable, Behavior is calm, cooperative. rs5 Pain: Denies pain. Neuro: Level of Consciousness is awake, alert, obeys commands, Oriented to person, place, time, situation. Cardiovascular: Heart tones S1 S2 present Patient's skin is warm and dry. Rhythm is sinus tachycardia. Respiratory: Airway is patent Respiratory effort is even, unlabored, Respiratory pattern is regular, symmetrical, Breath sounds are clear bilaterally. 07:00 GI: Abdomen is round non-distended, Bowel sounds present X 4 quads. Abd is soft and non rs5 tender X 4 quads. : Reports pain in suprapubic area Pain is 2 out of 10 on a pain scale. EENT: No signs and/or symptoms were reported regarding the EENT system. Derm: Skin is intact, Skin is pink, warm \\T\\ dry. Musculoskeletal: Range of motion: intact in all extremities, Reports generalized weakness. 07:59 : Bentley in place to gravity drainage Urine is clear. ko1 10:02 Reassessment: No changes from previously documented assessment. rs5 11:20 Reassessment: Patient and/or family updated on plan of care and expected duration. Pain rs5 level reassessed. Patient is alert, oriented x 3, equal unlabored respirations, skin warm/dry/pink. Patient denies pain at this time. Report called to FIONA [facility], tech at bedside for transport. Vital Signs: 07:45 BP 122 / 78; Pulse 114; Resp 17; Temp 99.9(O); Pulse Ox 95% ; ko1 07:57 BP 107 / 79; Pulse 114; Resp 16; Pulse Ox 94% ; ko1 08:15 BP 150 / 79; Pulse 104; Resp 18; Pulse Ox 100% on R/A; ko1 09:30 BP 133 / 67; Pulse 114; Resp 18; Pulse Ox 94% ; ko1 10:05 BP 137 / 75; Pulse 108; Resp 18; Pulse Ox 96% on R/A; rs5 11:10 BP 136 / 70; Pulse 103; Resp 18; Pulse Ox 97% on R/A; rs5 ED Course: 07:41 Patient arrived in ED. rn 07:41 Wes Hubbard MD is Attending Physician. rn 07:44 Ismael Reis, FIONA is Primary Nurse. rs5 07:56 Triage completed. ko1 07:56 Arm band placed on right wrist. Patient placed in an exam room, on a stretcher, on ko1 property assessment monitor, on pulse oximetry, Patient notified of wait time. 07:57 Patient has correct armband on for positive identification. Placed in gown. Bed in low ko1 position. Call light in reach. Side rails up X2. Client placed on continuous cardiac and pulse oximetry monitoring. NIBP monitoring applied. hospital monitor on. Door closed. Noise minimized. Lights dimmed. Warm blanket given. 07:57 Maintain EMS IV. Dressing intact. Good blood return noted. Site clean \\T\\ dry. Gauge \\T\\ ko 1 site: 20g right wrist. 08:23 SARS RAPID Sent. ko1 08:23 Flu Sent. ko1 08:23 Blood Culture Adult (2) Sent. ko1 08:23 Lactate w/ 2H reflex if indic. Sent. ko1 08:23 CMP Sent. ko1 08:26 Chest Single View XRAY In Process Unspecified. EDMS 09:26 CT Chest For PE Angio In Process Unspecified. EDMS 09:26 CT Abd/Pelvis - IV Contrast Only In Process Unspecified. EDMS 09:33 LAB Add On Sent. ko1 09:57 Ken Alarcon MD is Hospitalizing Provider. rn 11:31 No provider procedures requiring assistance completed. Patient admitted, IV remains in rs5 place. Administered Medications: 08:01 Drug: NS 0.9% IV 500 ml IV at bolus once Route: IV; Rate: bolus; Site: right wrist; ko1 08:30 Follow up: Response: No adverse reaction rs5 08:09 Drug: Levalbuterol Inhalation 1.25 mg Inhalation once Route: Inhalation; ko1 08:30 Follow up: Response: No adverse reaction rs5 08:09 Drug: Ipratropium Inhalation Aerosol 0.5 mg Inhalation once Route: Inhalation; ko1 08:30 Follow up: Response: No adverse reaction rs5 08:10 Drug: MethylPrednisoLONE IVP 125 mg IVP once Route: IVP; Site: right wrist; ko1 08:30 Follow up: Response: No adverse reaction rs5 09:35 Drug: Rocephin IV 1 grams IV at calculated rate once; Given slow IV push per pharmacy rs5 instructions Route: IV; Rate: calculated rate; Site: right forearm; 10:00 Follow up: Response: No adverse reaction rs5 10:05 Drug: metroNIDAZOLE IVPB 500 mg 100 ml IVPB at 200 ml/hr once over 30 mins Volume: 100 rs5 ml; Route: IVPB; Rate: 200 ml/hr; Infused Over: 30 mins; Site: right antecubital; 10:30 Follow up: Response: No adverse reaction rs5 Medication: 11:31 VIS not applicable for this client. rs5 Outcome: 09:57 Decision to Hospitalize by Provider. rn 11:31 Admitted to Med/surg accompanied by tech, with chart, rs5 11:31 Condition: stable 11:31 Instructed on the need for admit, Demonstrated understanding of instructions, 11:31 Patient left the ED. rs5 Signatures: Dispatcher [employer] EDMS Wes Hubbard MD MD rn Oliver, Kathy, RN RN ko1 Ismael Reis RN RN rs5 Corrections: (The following items were deleted from the chart) 08:30 07:59 : to gravity drainage Urine is clear, ko1 ko1 09:23 07:30 Reassessment: Pt states "I had this Bentley inserted about a month ago with home rs5 health and it starting to hurt and burn a little" provider notified. rs5
--- NOTE | 2023-08-18 09:59 | EDPHYS ---
Physician Documentation [facility] Name: Shawn Gant Age: 78 yrs Sex: Male : 1945 Arrival Date: 08/18/2023 Time: 07:40 Bed 2 Private MD: ED Physician Wes Hubbard HPI: 08/18 07:49 This 78 yrs old Male presents to ER via Unassigned with complaints of sob, fever. rn 07:49 The patient has shortness of breath at rest, with light activity. Onset: The rn symptoms/episode began/occurred yesterday. Duration: The symptoms are continuous. The patient's shortness of breath is aggravated by coughing, light activity, is alleviated by nothing. Associated signs and symptoms: Pertinent positives: non-productive cough, fever, Pertinent negatives: hemoptysis. Severity of symptoms: At their worst the symptoms were moderate in the emergency department the symptoms are unchanged. The patient has experienced similar episodes in the past. Patient reports cough and shortness of breath since yesterday. Inhaler not really helping. Has been in and out of the hospital for respiratory problems and difficult to treat urinary infection. Was discharged last about a week ago and put on oral antibiotics. Patient has indwelling Bentley catheter.. Historical: - Allergies: 07:56 Polio Virus Vaccines; ko1 - PMHx: 07:56 borderline DM; COPD; Hypertension; ko1 - PSHx: 07:56 multiple ortho; ko1 - Immunization history:: Adult Immunizations up to date. - Social history:: Smoking status: Patient denies any tobacco usage or history of. - Family history:: not pertinent. - Hospitalizations: : Patient was recently seen at. ROS: 07:49 Constitutional: Positive for fever and chills Eyes: Negative for injury, pain, redness, rn and discharge, Cardiovascular: Negative for chest pain, palpitations, and edema, Respiratory: Positive for cough and shortness of breath Abdomen/GI: Positive for diarrhea, negative for vomiting or abdominal pain MS/Extremity: Negative for injury and deformity, Neuro: Positive for generalized weakness Exam: 07:49 Constitutional: This is a well developed, well nourished patient who is awake, alert, rn mild tachypnea with shallow breaths Head/Face: Normocephalic, atraumatic. Cardiovascular: Tachycardic, regular. No pulse deficits. Respiratory: Mild tachypnea, diminished breath sounds bilateral bases. No retractions Abdomen/GI: Soft, nontender Male : Indwelling Bentley catheter with some sediment MS/ Extremity: Pulses equal, no cyanosis. Neuro: Awake and alert, GCS 15 09:13 ECG was reviewed by the Attending Physician. rn Vital Signs: 07:45 BP 122 / 78; Pulse 114; Resp 17; Temp 99.9(O); Pulse Ox 95% ; ko1 07:57 BP 107 / 79; Pulse 114; Resp 16; Pulse Ox 94% ; ko1 08:15 BP 150 / 79; Pulse 104; Resp 18; Pulse Ox 100% on R/A; ko1 09:30 BP 133 / 67; Pulse 114; Resp 18; Pulse Ox 94% ; ko1 10:05 BP 137 / 75; Pulse 108; Resp 18; Pulse Ox 96% on R/A; rs5 11:10 BP 136 / 70; Pulse 103; Resp 18; Pulse Ox 97% on R/A; rs5 MDM: 07:41 Patient medically screened. rn 09:12 ED course: Improvement of symptoms after nebulizer treatment and medication. Still rn tachycardic to the 120s, seems out of proportion to temperature, CT PE protocol added as well as troponin and BNP. 09:56 Differential diagnosis: Chronic Obstructive Pulmonary Disease pneumonia, Pneumothorax rn Pulmonary Embolism. Data reviewed: vital signs, nurses notes, lab test result(s), radiologic studies, CT scan, plain films, and as a result, I will admit patient. Consideration of Admission/Observation Patient was admitted/placed on observation. Escalation of care including admission/observation considered. Counseling: I had a detailed discussion with the patient and/or guardian regarding the historical points, exam findings, and any diagnostic results supporting the discharge/admit diagnosis, lab results, radiology results, the need for further work-up and treatment in the hospital. Response to treatment: the patient's symptoms have mildly improved after treatment, and as a result, I will admit patient. 08/18 07:42 Order name: Blood Culture Adult (2) rn 08/18 07:42 Order name: CBC with Diff; Complete Time: 08:34 rn 08/18 07:42 Order name: CMP; Complete Time: 08:34 rn 08/18 07:42 Order name: Lactate w/ 2H reflex if indic.; Complete Time: 08:34 rn 02 07:42 Order name: Protime (+inr); Complete Time: 08:34 rn 02 07:42 Order name: Ptt, Activated; Complete Time: 08:34 rn 02 07:42 Order name: Urinalysis w/ reflexes; Complete Time: 09:15 rn 02 07:42 Order name: Flu; Complete Time: 09:09 rn 08/18 07:42 Order name: SARS RAPID; Complete Time: 08:41 rn 08/18 09:10 Order name: LAB Add On eb 08/18 09:15 Order name: Urine Culture EDMS 08/18 09:16 Order name: Troponin High Sensitivity; Complete Time: 09:51 EDMS 08/18 09:16 Order name: NT PRO-BNP; Complete Time: 09:51 EDMS 02 07:42 Order name: Chest Single View XRAY; Complete Time: 08:35 rn 08/18 09:09 Order name: CT Chest For PE Angio; Complete Time: 09:51 rn 08/18 09:16 Order name: CT Abd/Pelvis - IV Contrast Only; Complete Time: 09:51 rn 08/18 07:42 Order name: EKG; Complete Time: 07:43 rn 08/18 07:42 Order name: Accucheck; Complete Time: 09:33 rn 02 07:42 Order name: Cardiac monitoring; Complete Time: 07:53 rn 08/18 07:42 Order name: EKG - Nurse/Tech; Complete Time: 09:09 rn 02 07:42 Order name: IV Saline Lock - Large Bore; Complete Time: 07:53 rn 08/18 07:42 Order name: Labs collected and sent; Complete Time: 08:23 rn 08/18 07:42 Order name: O2 Per Protocol; Complete Time: 07:53 rn 08/18 07:42 Order name: O2 Sat Monitoring; Complete Time: 07:53 rn 08/18 07:42 Order name: Vital Signs; Complete Time: 07:53 rn EC:13 Rate is 122 beats/min. Rhythm is regular. Left axis deviation noted. QRS is positive in rn lead I and negative in lead aVF. ID interval is normal. QRS interval is normal. QT interval is normal. No Q waves. T waves are Normal. No ST changes noted. Clinical impression: Sinus tachycardia. Interpreted by me. Reviewed by me. Administered Medications: 08:01 Drug: NS 0.9% IV 500 ml IV at bolus once Route: IV; Rate: bolus; Site: right wrist; ko1 08:30 Follow up: Response: No adverse reaction rs5 08:09 Drug: Levalbuterol Inhalation 1.25 mg Inhalation once Route: Inhalation; ko1 08:30 Follow up: Response: No adverse reaction rs5 08:09 Drug: Ipratropium Inhalation Aerosol 0.5 mg Inhalation once Route: Inhalation; ko1 08:30 Follow up: Response: No adverse reaction rs5 08:10 Drug: MethylPrednisoLONE IVP 125 mg IVP once Route: IVP; Site: right wrist; ko1 08:30 Follow up: Response: No adverse reaction rs5 09:35 Drug: Rocephin IV 1 grams IV at calculated rate once; Given slow IV push per pharmacy rs5 instructions Route: IV; Rate: calculated rate; Site: right forearm; 10:00 Follow up: Response: No adverse reaction rs5 10:05 Drug: metroNIDAZOLE IVPB 500 mg 100 ml IVPB at 200 ml/hr once over 30 mins Volume: 100 rs5 ml; Route: IVPB; Rate: 200 ml/hr; Infused Over: 30 mins; Site: right antecubital; 10:30 Follow up: Response: No adverse reaction rs5 Disposition Summary: 08/18/23 09:57 Hospitalization Ordered Notes: Hospitalization Status: Inpatient Admission rn Provider: Ken Alarcon rn Location: Telemetry/[facility] (Inpatient) rn Condition: Stable rn Problem: new rn Symptoms: have improved rn Bed/Room Type: Standard rn Room Assignment: 221(08/18/23 10:17) eb Diagnosis - UTI/ Urinary tract infection, site not specified rn - Fever, unspecified rn - COPD/ Chronic obstructive pulmonary disease with (acute) exacerbation rn Forms: - Medication Reconciliation Form rn - SBAR form rn - Leadership Thank You Letter rn Signatures: Dispatcher [employer] Wes Johns MD MD rn Botello, Elizabeth eb Oliver, Kathy, RN RN ko1 Ismael Reis RN RN rs5 Corrections: (The following items were deleted from the chart) 07:53 07:49 Constitutional: This is a well developed, well nourished patient who is awake, rn alert, mild tachypnea with shallow breaths Head/Face: Normocephalic, atraumatic. rn 10:17 09:57 rn eb
[2023-08-18] MEDS ORDERED: METRONIDAZOLE 500mg IVPB 500 MG/100 ML BAG IV ONE (10:02)
[2023-08-18] MEDS ORDERED: NA CHLORIDE 0.9% 0 ML ONE (10:02)
[2023-08-18] MEDS ORDERED: IPRATROPIUM BROM 0.5MG/2.5ML NEB PRN ×2 (10:51→12:44)
[2023-08-18] MEDS ORDERED: ALBUTEROL 2.5 MG/3 ML NEB SOL NEB PRN ×2 (10:51→12:44)
[2023-08-18 12:03] VITALS: BMI 25.1
[2023-08-18] MEDS ORDERED: ALPRAZOLAM 0.25 MG TABLET PO PRN (12:33)
[2023-08-18 14:33] LABS: C.diff Antigen/Toxin Ag pos : Tox pos (NEG : NEG)
[2023-08-18] MEDS: VANCOMYCIN ORAL SOLN 250 MG/5 ML OSYR PO SCH ×2 (15:08→16:13)
[2023-08-18] MEDS: HYDROCODONE/APAP 5/325 MG TAB PO PRN (15:08)
[2023-08-18] MEDS: PIPER TAZO 3.375 GM in NA CHLORIDE 0.9% 100 ML IV SCH (16:08)
[2023-08-18] MEDS: ENOXAPARIN 40 MG/0.4 ML SQ SCH (16:08)
[2023-08-18] MEDS: METHYLPREDNISOLONE 40 MG INJ IV SCH (16:08)
--- NOTE | 2023-08-18 20:53 | HP ---
Date of Admission: 08/18/2023 Chief Complaint: Fever, chills, shortness of breath. History Of Present Illness: This is a 78-year-old pleasant male patient who has an indwelling Bentley catheter because of his enlarged prostate, has been under care of urologist in [place], Dr. Verduzco. He gets his Bentley catheter changed at home with help of home health care. He had his last 2 visits with urologist this week and he tells me that urologist has informed me that they will do some further testing on him before making decision on what to do next as far as his Bentley catheter is concerned. Today, he came into emergency room with shortness of breath and fever and chills and after he was evaluated, he was admitted to the hospital with urinary tract infection and acute exacerbation of COPD. I saw him in emergency room for this admission. He was not in any distress, lying in bed. Denies any nausea, vomiting. No chest pain. No vomiting. No diarrhea. Allergies: NO KNOWN ALLERGIES. Medications: Albuterol inhaler 2 puffs every 4 hours as needed. Albuterol and Atrovent nebulizer treatment every 4 hours as needed. Tamsulosin 0.4 mg takes 2 capsules daily. Finasteride 5 mg daily. Montelukast 10 mg daily. Folbic 1 tablet daily. Trelegy inhaler 1 puff daily. Aspirin 81 mg daily. Alprazolam 2 mg, takes 1/3 tablet three times a day as needed. He has not taken Sotalol in very long time and in past he had informed me that he was not taking Paroxetine but during this admission he has stated that he takes Paroxetine 40 mg daily. Review of Systems: Respiratory: As mentioned above. Constitutional: As mentioned above. All other systems reviewed and negative. Past Medical History: Significant for headache, type 2 diabetes mellitus, COPD,hypertension, hyperlipidemia, diverticulosis, benign prostatic hypertrophy, osteoarthritis at multiple sites, anxiety, panic attacks. Past Surgical History: Hernia repair and hip surgery. Social History: Prior history of smoking and use of alcohol occasional. Family History: Mother had lung cancer Physical Examination: Vital Signs: When he came in, temperature 99.9, pulse 114, respiratory rate 17, blood pressure 122/78, oxygen saturation 95%. General: Awake, alert, oriented, not in distress. HEENT: Head atraumatic, normocephalic. Conjunctivae nonerythematous. Sclerae white. Mouth, no thrush or edema noted. Ears/Nose, no mass, lesion, discharge noted. Neck: Supple. No JVD, lymph nodes, bruit, thyromegaly noted. Lungs: Bilateral good equal air entry. Clear to auscultation. No rhonchi. No rales. Heart: Normal heart sounds, no murmur or gallop. Abdomen: Soft, bowel sounds normal. No guarding, rigidity, tenderness, mass, hepatosplenomegaly, distention, or bruit noted. Extremities: No leg edema. No calf tenderness. Skin: No rash, ulcer, cellulitis. Lymphatics: No lymph node enlargement in neck, supraclavicular, infraclavicular region. Neuro: No focal neurological deficit. Chest: Unremarkable. External Genitalia: Presence of Bentley catheter draining yellow color urine. Rectal: Deferred. Laboratory Data: White count 12.4, hemoglobin 13.7, platelets 299. Sodium 133, potassium 3.9, chloride 101, bicarb 23, BUN 8, creatinine 1.08, glucose 102. Liver function tests unremarkable. Troponin 4.7. ProBNP 678. COVID-19 test negative. Urinalysis 2+ blood, 1+ nitrite, leukocyte esterase is 500, WBC more than 50, bacteria 20-50. Chest x-ray, no acute cardiopulmonary changes noted. CT scan of abdomen and pelvis shows mild colitis pattern present, greatest in the rectosigmoid colon. No evidence of pneumatosis. His CT scan of the chest per PE protocol shows no evidence of pulmonary embolism and it does show evidence of COPD changes. Impression: 1. Urinary tract infection. 2. Acute exacerbation of chronic obstructive pulmonary disease. 3. Colitis. 4. Type 2 diabetes mellitus. 5. Benign prostatic hypertrophy with lower urinary tract symptoms. 6. Hypertension. 7. Hyperlipidemia. 8. Diverticulosis. 9. Generalized anxiety disorder. 10. Osteoarthritis, multiple sites. Plan: We will go ahead and admit the patient to hospital for further evaluation and management of this problem. The patient is appropriate for inpatient and is expected to spend 2 midnights in hospital. The patient has received IV antibiotics in the emergency room, which is ceftriaxone along with nebulizer treatment and steroids, and we will go ahead and continue nebulizer treatment. Continue steroid. The patient also received metronidazole and we will continue that as well. We will go ahead and order stool for C. diff and we will continue nebulizer treatment along with antibiotic and IV steroid. DVT prophylaxis will be given using Lovenox per order. I will see him tomorrow morning for followup. For anxiety, we will continue alprazolam per order. He does not take any medications for diabetes and we will go ahead and order fingerstick blood sugar with mild sliding scale. I did talk to him about code status and the patient is full code as per his decision. We will follow up on urine culture and then decide about culture specific antibiotic. INDRA/MODL Voice ID: [id number] GEORGIANA
[2023-08-19] MEDS: METHYLPREDNISOLONE 40 MG INJ IV SCH ×2 (00:48→08:26)
[2023-08-19] MEDS: VANCOMYCIN ORAL SOLN 250 MG/5 ML OSYR PO SCH ×4 (00:48→17:26)
[2023-08-19] MEDS: PIPER TAZO 3.375 GM in NA CHLORIDE 0.9% 100 ML IV SCH ×3 (00:49→17:27)
[2023-08-19 04:22] LABS: Absolute Lymphocytes (CBC) 0.7 K/uL (0.7-4.9); Hematocrit 40.7 % (39.6-49.0); MCV 91.6 fL (80-100); MPV 7.3 fL (7.6-11.3); Platelets 261 thou/uL (152-406); RBC Red Blood Cell Count 4.45 M/uL (4.33-5.43)
[2023-08-19 05:08] LABS: Potassium 3.3 mEq/L (3.5-5.1)
[2023-08-19] MEDS: ASPIRIN EC 81 MG TAB PO SCH (08:25)
[2023-08-19] MEDS ORDERED: POTASSIUM CL SA 10 MEQ TAB PO ONE ×2 (12:13→20:00)
--- NOTE | 2023-08-19 14:27 | PN ---
Date of Progress Note: 08/19/2023 Subjective: The patient was seen this morning for followup. No new complaints, problems reported. He was lying in bed. Had one diarrhea during daytime yesterday, one last night and one this morning. Denies any abdominal pain, nausea, vomiting. Overall feels better. Not in any respiratory distres s and no shortness of breath at rest. The patient has dyspnea with activity, which is his chronic pr oblem because of severe COPD problems. Objective: Vital Signs: Reviewed. HEENT: Unremarkable. Lungs: Clear to auscultation. Heart: Sounds normal. Abdomen: Soft. Bowel sounds normal. No guarding, rigidity, tenderness, distention. Extremities: No leg edema. Laboratory Data: White count 16.3, hemoglobin 14.1, platelets 261. Sodium 134, potassium 3.3, chlor bobby 100, bicarb 26, BUN 14, creatinine 1.03, glucose 198. ProBNP 2780. Impression: 1.Clostridium difficile colitis. 2.Urinary tract infection. 3.Acute exacerbation of COPD. Plan: The patient's WBC count has gone up today and that is very likely due to IV steroid which is S ashley-Medrol that was started after he came to hospital emergency room and I will go ahead and disconti nue that now as there is no reason for him to continue it. His respiratory status is stable. We jenny l continue nebulizer treatment per order and I will add Dulera inhaler per order. For Clostridium di fficile colitis, we have him on vancomycin 125 mg by mouth every 6 hours. We will continue that. I had a long discussion with him regarding Clostridium difficile colitis and its treatment with vancomy walker. We will plan to give it to him for about 10 days and after that we will repeat stool test, if t here is any recurrence of C diff, then we will consider second round of vancomycin and at some point we may have to either give vancomycin with tapering dose over longer period of time in case if he has recurrence of Clostridium difficile colitis problem. All those details were discussed with him. We will continue current Zosyn. Urine culture is growing some bacteria. Definite identification is arben marie. Once we get that final result, hopefully it will be available tomorrow or day after tomorrow, then we will plan to discharge him to go home with appropriate antibiotic at home. He has appointme nt to see urologist in about 2-3 weeks from now and he was encouraged to keep that appointment. INDRA/MODL Voice ID: [id number] Report ID: [id number]
[2023-08-19] MEDS: ENOXAPARIN 40 MG/0.4 ML SQ SCH (17:27)
[2023-08-19] MEDS: HYDROCODONE/APAP 5/325 MG TAB PO PRN (21:04)
[2023-08-19] MEDS: DULERA 200/5 (MOMETASONE/FORMOTEROL) INHALER IH SCH (21:05)
[2023-08-19 21:08] VITALS: O2SAT 97
[2023-08-19] MEDS ORDERED: ALPRAZOLAM 0.25 MG TABLET PO PRN (21:16)
[2023-08-19] MEDS: PARoxetine HCL 10 MG TAB PO SCH (21:21)
[2023-08-20] MEDS: VANCOMYCIN ORAL SOLN 250 MG/5 ML OSYR PO SCH ×3 (00:50→12:00)
[2023-08-20] MEDS: PIPER TAZO 3.375 GM in NA CHLORIDE 0.9% 100 ML IV SCH ×2 (00:51→09:00)
[2023-08-20 05:07] LABS: Potassium 3.5 mEq/L (3.5-5.1)
[2023-08-20] MEDS: DULERA 200/5 (MOMETASONE/FORMOTEROL) INHALER IH SCH (09:00)
[2023-08-20] MEDS ORDERED: FINASTERIDE 5 MG TAB PO SCH (09:00)
[2023-08-20] MEDS ORDERED: POTASSIUM CL SA 10 MEQ TAB PO ONE (09:00)
[2023-08-20] MEDS ORDERED: TAMSULOSIN 0.4 MG SR CAP PO SCH (09:00)
[2023-08-20] MEDS: ASPIRIN EC 81 MG TAB PO SCH (09:13)
[2023-08-20] MEDS: PARoxetine HCL 10 MG TAB PO SCH (09:13)
[2023-08-20] MEDS ORDERED: CIPROFLOXACIN HCL 500 MG TAB PO ONE (09:13)
[2023-08-20] MEDS ORDERED: CIPROFLOXACIN HCL 250 MG TAB ONE (09:30)
[2023-08-20] MEDS: HYDROCODONE/APAP 5/325 MG TAB PO PRN (10:41)
--- NOTE | 2023-08-20 11:36 | DS ---
Date of Discharge: 08/20/2023 Disposition: Discharged to go home. Physical Examination: HEENT: Unremarkable. Lungs: Clear to auscultation. Heart: Sounds normal. Abdomen: Soft. Bowel sounds normal. No guarding, rigidity, tenderness, or distention. Extremities: No leg edema. Laboratory Data: Today, sodium 133, potassium 3.5, chloride 100, bicarb 26, BUN 14, creatinine 0.78, glucose 122. Upon admission, sodium 133, potassium 3.9, chloride 101, bicarb 23, BUN 8, creatinine 1.08, glucose 102. Liver function tests unremarkable. Troponin was 4.7. Yesterday, potassium was l ow at 3.3 and it was corrected. Initial WBC upon admission was 12.4, hemoglobin 13.7, platelets 299. Yesterday, WBC was 16.3, hemoglobin 14.1, platelets 261 and this elevated WBC was due to IV steroid . Discharge Medications/instructions: 1.Albuterol inhaler 2 puffs every 4 hours as needed. 2.Albuterol and Atrovent nebulizer treatment every 4 hours as needed. 3.Tamsulosin 0.4 mg 2 capsules daily. 4.Finasteride 5 mg daily. 5.Montelukast 10 mg daily. 6.Folbic 1 tablet daily. 7.Trelegy inhaler 1 puff daily, rinse mouth with water after its use. 8.Aspirin 81 mg daily. 9.Alprazolam 2 mg, takes one-third tablet 3 times a day as needed. 10.Paroxetine 40 mg daily. 11.Meloxicam 15 mg daily as needed for back pain/arthritis, take it with food. 12.New Medications: a.Cipro 500 mg 2 times a day for 2 weeks. b.Vancomycin 125 mg 4 times a day for 2 weeks. 13.Follow up at my office next week. 14.Follow up with urologist as your scheduled appointment this month. Hospital Course: This is a 78-year-old pleasant male patient admitted to the hospital with diarrhea, fever, chills, and shortness of breath. Please see dictated H and P for more information. The sam ent's urinalysis when he came in was abnormal consistent with urinary tract infection, and CT scan of abdomen and pelvis had shown mild colitis changes. CAT scan of the chest per PE protocol was negati ve for pulmonary embolism and it did show evidence of COPD. Stool for C difficile was ordered and th at came back positive for C difficile, and the patient was started on oral vancomycin. For urinary t ract infection, initially he was on IV Zosyn, but today we got final culture results back. It is pse udomonas and it is sensitive to Cipro and first dose of Cipro was given this morning, and we will dis charge him to go home with oral Cipro for 2 weeks. The patient has benign prostatic hypertrophy with urinary retention and has an indwelling Bentley catheter at least for the last 2 months or more, and sera cutler has been under care of urologist in [place], Dr. Verduzco and he has appointment this month to go b [facility] for followup for some more testing before he makes a final recommendation per his indwelling Fole y catheter problem. The patient will keep that appointment. I did have a long discussion with him r egarding this Clostridium difficile colitis problem and after we gave him 2 weeks of vancomycin, we w ill decide to repeat stool test and if he has any recurrence of that, we will treat it again with ora l vancomycin. A copy of discharge medication and instructions was personally provided to the patient by me today. The patient initially when he came into emergency room was complaining of shortness of breath and was given IV steroid, which was discontinued yesterday as his breathing status and respiratory status ar e back to baseline and there is no need for ongoing steroid use. Final Diagnoses: 1.Urinary tract infection, organism pseudomonas. 2.Clostridium difficile colitis, initial episode. 3.Acute exacerbation of chronic obstructive pulmonary disease. 4.Benign prostatic hypertrophy with lower urinary tract symptoms. 5.Type 2 diabetes mellitus. 6.Hypertension. 7.Hyperlipidemia. 8.Diverticulosis. 9.Generalized anxiety disorder. 10.Osteoarthritis, multiple sites. INDRA/MODL Voice ID: [id number] Report ID: [id number]
[2023-08-20 12:41] VITALS: BP 139/72; TEMP 97.9
[2023-08-20] MEDS ORDERED: CIPROFLOXACIN HCL 500 MG TAB PO SCH (21:00)
--- NOTE | 2023-08-21 15:10 | EKG ---
Test Date: 2023-08-18 Test Time: 08:52:02 Certified Endoscopy Technician: FRANCESCA MEASUREMENT RESULTS: Intervals: Rate: 122 CO: 180 QRSD: 84 QT: 290 QTc: 413 [place]: P: 76 CO: 180 QRS: -79 T: 83 INTERPRETIVE STATEMENTS: Sinus tachycardia Left axis deviation Anteroseptal infarct, age undetermined Abnormal ECG Compared to ECG 07/28/2023 20:52:43 Sinus rhythm no longer present Atrial premature complex(es) no longer present Myocardial infarct finding still present Electronically Signed On 08-21-23 15:02:43 AGRICULTURAL ENGINEERING TEACHER by Demetrio Aguilar
== END 2023-08-20 13:04 | disposition home or self-care (01) | DRG 372 ==
LOC: ER 07:40 → ERHOLD 10:00 → 2ND 10:21
PROVIDERS: ADMIT Internal Medicine; ATTEND Internal Medicine
DX: A04.72 Enterocolitis due to Clostridium difficile, not specified as recurrent (principal); J44.1 Chronic obstructive pulmonary disease with (acute) exacerbation; N39.0 Urinary tract infection, site not specified; I10 Essential (primary) hypertension; E11.9 Type 2 diabetes mellitus without complications; E78.5 Hyperlipidemia, unspecified; F41.1 Generalized anxiety disorder; M19.09 Primary osteoarthritis, other specified site; K57.90 Diverticulosis of intestine, part unspecified, without perforation or abscess without bleeding; N40.1 Benign prostatic hyperplasia with lower urinary tract symptoms; R33.8 Other retention of urine; B96.5 Pseudomonas (aeruginosa) (mallei) (pseudomallei) as the cause of diseases classified elsewhere; Z88.7 Allergy status to serum and vaccine; Z11.52 Encounter for screening for COVID-19; Z79.82 Long term (current) use of aspirin; Z79.899 Other long term (current) drug therapy
CPT/HCPCS: 36415; 71045; 71275; 74177; 80048; 80053; 81001; 83605; 83880; 84132; 84484; 85025; 85610; 85730; 87040; 87077; 87086; 87088; 87186; 87324; 87804; 87811; 93005; 94760; J0696; J1650; J2543; J2920; J2930; J3535; J7614; J7644; Q9967

== ENCOUNTER 2023-09-19 23:56 | Inpatient (IN) | payer OTHER ==
[2023-09-20] MEDS ORDERED: ONDANSETRON 4 MG/2 ML VIAL ONE (00:29)
[2023-09-20] MEDS ORDERED: NA CHLORIDE 0.9% 2,000 ML ONE (00:30)
[2023-09-20] MEDS ORDERED: ACETAMINOPHEN 500 MG TAB ONE (00:30)
[2023-09-20] MEDS ORDERED: FAMOTIDINE 20 MG/2 ML VIAL IV ONE (00:30)
[2023-09-20] MEDS ORDERED: NA CHLORIDE 0.9% 100 ML ONE (00:30)
[2023-09-20 00:51] LABS: Absolute Basophils 0.1 K/uL (0-0.5); Absolute Lymphocytes (CBC) 1.1 K/uL (0.7-4.9); Basophils % 0.7 % (0-1.3); Hematocrit 41.3 % (39.6-49.0); Lymphocytes % 8.4 % (15.3-44.8); MCV 87.6 fL (80-100); MPV 6.6 fL (7.6-11.3); Platelets 318 thou/uL (152-406); Protime INR 1.12; RBC Red Blood Cell Count 4.71 M/uL (4.33-5.43)
[2023-09-20 01:01] LABS: Albumin 3.1 g/dL (3.4-5.0); Albumin/Globulin Ratio 0.8 (1.1-1.8); Anion Gap 8.6 mEq/L (5.0-15.0); Bilirubin Total 0.6 mg/dL (0.2-1.0); Potassium 3.6 mEq/L (3.5-5.1)
[2023-09-20 01:02] LABS: Troponin High Sensitivity 12.8 pg/mL (<58.9)
[2023-09-20 01:08] LABS: SARS-CoV-2 Antigen Rapid Res Negative (Negative)
[2023-09-20] MEDS ORDERED: PIPERACIL/TAZO 3.375 GM VIAL IV ONE (01:31)
[2023-09-20 02:39] LABS: Specific Gravity 1.014 (1.005-1.030); Urine Bacteria <20 /HPF (<20); Urine Bilirubin NEGATIVE (Negative); Urine Blood Negative (Negative); Urine Clarity Turbid (Clear); Urine Color Light-Yellow (Yellow); Urine Glucose NEGATIVE (Negative); Urine Mucus Slight /HPF (None Seen); Urine Protein TRACE (Negative); Urine Urobilinogen Normal (Normal); Urine WBC Clump Rare /HPF (None Seen); Urine Yeast (Budding) Trace /HPF (None Seen); Urine Yeast with Hyphae Trace /HPF (None Seen)
--- NOTE | 2023-09-20 03:33 | ER ---
Nurse's Notes [facility] Name: Shawn Gant Age: 78 yrs Sex: Male : 1945 Arrival Date: 09/19/2023 Time: 23:56 Bed 15 Private MD: Diagnosis: Enterocolitis due to Clostridium difficile;Sepsis without septic shock, clostridial colitis, Chronic UTI, physical debility, chronic generalized pain, type 2 diabetes mellitus, Presentation: 09/18 23:59 Chief complaint: EMS states: GOT DIAGNOSED WITH C.DIFF August OF THIS YEAR, STILL rv HAVING EXPLOSIVE DIARRHEA TODAY, FEBRILE UPON ARRIVAL WITH TEMP OF 101.3. Coronavirus screen: At this time, the client does not indicate any symptoms associated with coronavirus-19. Ebola Screen: No symptoms or risks identified at this time. Initial Sepsis Screen: Does the patient meet any 2 criteria? No. Patient's initial sepsis screen is negative. Does the patient have a suspected source of infection? No. Patient's initial sepsis screen is negative. Risk Assessment: Do you want to hurt yourself or someone else? Patient reports no desire to harm self or others. Onset of symptoms was September 20, 2023. 23:59 Method Of Arrival: EMS: [facility] rv 23:59 Acuity: MARIO 2 rv Triage Assessment: 09/19 00:02 General: Appears in no apparent distress. Behavior is calm, cooperative. Pain: Denies rv pain. Neuro: Level of Consciousness is awake, alert, obeys commands, Oriented to person, place, time, situation. Cardiovascular: Capillary refill < 3 seconds Patient's skin is warm and dry. Respiratory: Airway is patent Respiratory effort is even, unlabored. GI: No signs and/or symptoms were reported involving the gastrointestinal system. : No signs and/or symptoms were reported regarding the genitourinary system. Derm: Skin is intact. Historical: - Allergies: 00:02 Polio Virus Vaccines; rv - PMHx: 00:02 borderline DM; COPD; Hypertension; rv - PSHx: 00:02 multiple ortho; rv - Immunization history:: Adult Immunizations up to date. - Social history:: Smoking status: Patient denies any tobacco usage or history of. - Family history:: not pertinent. Screenin:03 [facility] ED Fall Risk Assessment (Adult) History of falling in the last 3 months, rv including since admission No falls in past 3 months (0 pts) Score/Fall Risk Level 0 - 2 = Low Risk Oriented to surroundings, Maintained a safe environment, Educated pt \T\ family on fall prevention, incl call for assistance when getting out of bed, Assessed \T\ reinforced patient's understanding of fall precautions. Abuse screen: Denies threats or abuse. Denies injuries from another. Nutritional screening: No deficits noted. Tuberculosis screening: No symptoms or risk factors identified. Assessment: 09/18 23:59 Reassessment: Patient is alert, oriented x 3, equal unlabored respirations, skin as9 warm/dry/pink. 23:59 General: Appears in no apparent distress. Behavior is calm, cooperative, appropriate as9 for age. Neuro: Level of Consciousness is awake, alert, obeys commands, Oriented to person, place, situation, Appropriate for age. Cardiovascular: Capillary refill < 3 seconds Patient's skin is warm and dry. Respiratory: Airway is patent Respiratory effort is unlabored, Respiratory pattern is regular, symmetrical. : No signs and/or symptoms were reported regarding the genitourinary system. EENT:. Musculoskeletal: Circulation, motion, and sensation intact. Range of motion: intact in all extremities. Vital Signs: 23:51 BP 106 / 88; Pulse 115; Resp 20; Pulse Ox 96% ; as9 23:59 BP 128 / 89; Pulse 114; Resp 20; Temp 101.3; Pulse Ox 96% ; rv 06 01:30 BP 106 / 65; Pulse 111; Resp 20; Pulse Ox 95% on R/A; as9 02:25 Temp 99; rv 02:25 BP 126 / 80; Pulse 105; Resp 20; Pulse Ox 96% on R/A; as9 03:00 BP 108 / 60; Pulse 114; Resp 20; Pulse Ox 95% on R/A; as9 03:29 Weight 82.55 kg (R); jb4 04:10 BP 110 / 69; Pulse 116; Resp 18; Pulse Ox 96% on R/A; rv [place] Coma Score: 03:33 Eye Response: spontaneous(4). Motor Response: obeys commands(6). Verbal Response: sp4 oriented(5). Total: 15. ED Course: 09/18 23:59 Patient arrived in ED. rv 09/19 00:02 Brandon Chiang MD is Attending Physician. sp4 00:02 Triage completed. rv 00:03 Arm band placed on right wrist. rv 00:03 No provider procedures requiring assistance completed. Maintain EMS IV. Dressing rv intact. Good blood return noted. Site clean \T\ dry. Gauge \T\ site: G20 LEFT FORE ARM. 00:04 Patient has correct armband on for positive identification. Client placed on continuous rv cardiac and pulse oximetry monitoring. NIBP monitoring applied. library monitor on. 00:21 Radiology exam delayed due to lab results not completed at this time. (BUN/Creatinine) eh4 IV insertion attempt and/or patient not having appropriate IV at this time. 00:26 Chest Single View XRAY In Process Unspecified. EDMS 00:35 Inserted saline lock: 20 gauge in right forearm, using aseptic technique. Blood rv collected. 00:40 Bentley cath inserted, using sterile technique, 16 Fr., by ks, balloon inflated, to rv gravity drainage, returned clear yellow urine. Patient tolerated well. 02:13 CT Abd/Pelvis - IV Contrast Only In Process Unspecified. EDMS 03:31 Jack Alarcon MD is Hospitalizing Provider. sp4 04:08 Patient admitted, IV remains in place. rv Administered Medications: 00:48 Drug: NS 0.9% IV 1000 ml IV at 1 bolus Per protocol; 1000 mL bolus Route: IV; Rate: 1 rv bolus; Site: right forearm; 04:10 Follow up: IV Status: Completed infusion; IV Intake: 1000ml rv 00:48 Drug: Famotidine IVP 20 mg IVP once; dilute with 10 mL 0.9% NaCl; give over 2 minutes rv Route: IVP; Site: right forearm; 04:09 Follow up: Response: No adverse reaction; Marked relief of symptoms rv 00:48 Drug: Ondansetron IVP 4 mg IVP once; over 2 minutes Route: IVP; Site: right forearm; rv 04:09 Follow up: Response: No adverse reaction; Marked relief of symptoms rv 00:48 Drug: Acetaminophen PO 1000 mg PO once Route: PO; rv 04:09 Follow up: Response: No adverse reaction; Marked relief of symptoms rv 00:48 Drug: NS 0.9% IV 1000 ml IV at 125 ml/hr continuous Route: IV; Rate: 125 ml/hr; Site: rv right forearm; 04:09 Follow up: IV Status: Infusion continued upon admission rv 01:53 Drug: Piperacillin-Tazobactam IVPB 3.375 grams IVPB once over 60 mins; (mix in NS 100 as9 mL) Route: IVPB; Infused Over: 60 mins; Site: right forearm; 04:09 Follow up: IV Status: Completed infusion; IV Intake: 100ml rv 03:51 Drug: Promethazine PO 25 mg PO once Route: PO; rv 04:09 Follow up: Response: Medication administered at discharge. rv 03:51 Drug: metroNIDAZOLE IVPB 500 mg 100 ml IVPB at 200 ml/hr once over 30 mins Volume: 100 rv ml; Route: IVPB; Rate: 200 ml/hr; Infused Over: 30 mins; Site: right forearm; 04:08 Follow up: IV Status: Infusion continued upon admission rv 03:52 Drug: [place] PO 10 mg-325 mg 1 tabs PO once Route: PO; rv 04:09 Follow up: Response: Medication administered at discharge. rv Medication: 00:03 VIS not applicable for this client. rv Intake: 04:09 IV: 100ml; Total: 100ml. rv 04:10 IV: 1000ml; Total: 1100ml. rv Output: 03:28 Urine: 350ml (Bentley); Total: 350ml. jbSonam Outcome: 03:33 Decision to Hospitalize by Provider. trudy 04:08 Admitted to Tele accompanied by tech, via stretcher, room 409, with chart, Report rv called to KALA JAIMES 04:08 Condition: good 04:08 Instructed on the need for admit, 04:10 Patient left the ED. rv Signatures: Dispatcher [employer] EDMS Minor Jacobson RN RN jb4 Hay Roche RN RN rv Chepe Clements 4 Brandon Chiang MD MD sp4 Hong Austin RN RN as9
--- NOTE | 2023-09-20 03:34 | EDPHYS ---
Physician Documentation [facility] Name: Shawn Gant Age: 78 yrs Sex: Male : 1945 Arrival Date: 09/19/2023 Time: 23:56 Bed 15 Private MD: ED Physician Brandon Chiang HPI: 09/19 00:03 This 78 yrs old Male presents to ER via EMS with complaints of Diarrhea . sp4 00:03 PMH - Historical: Allergies: Polio Virus Vaccines; PMHx: borderline DM; COPD; sp4 Hypertension; PSHx: multiple ortho. 03:33 78-year-old male presents with EMS for worsening watery profuse diarrhea associated sp4 with generalized weakness. Patient additionally reports generalized joint aches and pains. . Patient's medications include albuterol, tamsulosin, finasteride, montelukast, Folbic, Trelegy, aspirin, alprazolam, paroxetine, meloxicam, ciprofloxacin 500 mg p.o. twice a day, vancomycin 125 mg 4 times a day, patient has history of C. difficile colitis, chronic indwelling urinary catheter, COPD, BPH, type 2 diabetes, hypertension, lipidemia, diverticulosis, generalized anxiety disorder, osteoarthritis. Historical: - Allergies: 00:02 Polio Virus Vaccines; rv - PMHx: 00:02 borderline DM; COPD; Hypertension; rv - PSHx: 00:02 multiple ortho; rv - Immunization history:: Adult Immunizations up to date. - Social history:: Smoking status: Patient denies any tobacco usage or history of. - Family history:: not pertinent. ROS: 03:33 Constitutional: Negative for fever, chills, and weight loss, positive diarrhea, sp4 positive generalized weakness Eyes: Negative for injury, pain, redness, and discharge, 03:33 All other systems are negative, Exam: 01:37 ECG was reviewed by the Attending Physician. EKG at 0013 sinus tachycardia at a rate sp4 of 110, left axis deviation otherwise normal. 03:33 Constitutional: This is a well developed, well nourished patient who is awake, alert, sp4 and in no acute distress. Patient is physically debilitated male, febrile, tachycardic, ill-appearing, nontoxic appearing Head/Face: Normocephalic, atraumatic. Eyes: Pupils equal round and reactive to light, extra-ocular motions intact. Lids and lashes normal. Conjunctiva and sclera are not injected. Cornea within normal limits. Periorbital areas with no swelling, redness, or edema. ENT: Nares patent. No nasal discharge, no septal abnormalities noted. Tympanic membranes are normal and external auditory canals are clear. Oropharynx with no redness, swelling, or masses, exudates, or evidence of obstruction, uvula midline. Mucous membranes moist. Neck: Trachea midline, no thyromegaly or masses palpated, and no cervical lymphadenopathy. Supple, full range of motion without nuchal rigidity, or vertebral point tenderness. Chest/axilla: Normal chest wall appearance and motion. Nontender with no deformity. No lesions are appreciated. Cardiovascular: Regular rate and rhythm with a normal S1 and S2. No gallops, murmurs, or rubs. Normal PMI, no JVD. No pulse deficits. Respiratory: Lungs have equal breath sounds bilaterally, clear to auscultation and percussion. No rales, rhonchi or wheezes noted. No increased work of breathing, no retractions or nasal flaring. Abdomen/GI: Soft, with normal bowel sounds. No distension or tympany. No guarding or rebound. No evidence of tenderness throughout. Back: No spinal tenderness. No costovertebral tenderness. Male : Normal genitalia with no discharge or lesions. Positive for indwelling urinary catheter, circumcised male Skin: Warm, dry with normal turgor. Normal color with no rashes, no lesions, and no evidence of cellulitis. MS/ Extremity: Pulses equal, no cyanosis. Neurovascular intact. Full, normal range of motion. Neuro: Awake and alert, GCS 15, oriented to person, place, time, and situation. Cranial nerves II-XII grossly intact. Motor strength 5/5 in all extremities. Sensory grossly intact. Psych: Awake, alert, with orientation to person, place and time. Behavior, mood, and affect are within normal limits Vital Signs: 09/18 23:51 BP 106 / 88; Pulse 115; Resp 20; Pulse Ox 96% ; as9 23:59 BP 128 / 89; Pulse 114; Resp 20; Temp 101.3; Pulse Ox 96% ; rv 09/19 01:30 BP 106 / 65; Pulse 111; Resp 20; Pulse Ox 95% on R/A; as9 02:25 Temp 99; rv 02:25 BP 126 / 80; Pulse 105; Resp 20; Pulse Ox 96% on R/A; as9 03:00 BP 108 / 60; Pulse 114; Resp 20; Pulse Ox 95% on R/A; as9 03:29 Weight 82.55 kg (R); jb4 04:10 BP 110 / 69; Pulse 116; Resp 18; Pulse Ox 96% on R/A; rv [place] Coma Score: 03:33 Eye Response: spontaneous(4). Motor Response: obeys commands(6). Verbal Response: sp4 oriented(5). Total: 15. MDM: 00:13 Patient medically screened. sp4 01:34 ED course: CLINICAL HISTORY: sepsis COMPARISON: None. TECHNIQUE: XR CHEST 1 VIEW sp4 09/20/2023 12:05 AM CITY DETECTIVE FINDINGS: The heart is mildly enlarged. Lungs are clear without consolidation, atelectasis, mass or edema. There is no pleural effusion. There is no pneumothorax. There are multiple old posterior left rib fractures. IMPRESSION: No convincing pneumonia. 01:36 ED course: EXAM DESCRIPTION: Chest Single View CLINICAL HISTORY:35 years Male, CHEST sp4 PAIN Comparison: Chest radiograph dated 06/19/2022 FINDINGS: No focal lung consolidation. No pleural effusion. No pneumothorax. Cardiomediastinal silhouette is within normal limits. No acute osseous abnormality. IMPRESSION: No acute cardiopulmonary disease. . 03:12 ED course: COMPARISON: No relevant prior studies available. FINDINGS: Lung bases: sp4 Unremarkable. No mass. No consolidation. ABDOMEN: Liver: Unremarkable. No mass. Gallbladder and bile ducts: Unremarkable. No calcified stones. No ductal dilation. Pancreas: Unremarkable. No mass. No ductal dilation. Spleen: Unremarkable. No splenomegaly. Adrenals: Unremarkable. No mass. Kidneys and ureters: Unremarkable. No solid mass. No hydronephrosis. Stomach and bowel: Mucosal thickening involving the sigmoid colon suggestive of colitis. Scattered colonic diverticula. No obstruction. PELVIS: Appendix: No findings to suggest acute appendicitis. Bladder: Unremarkable. Reproductive: Unremarkable as visualized. ABDOMEN and PELVIS: Intraperitoneal space: Unremarkable. No free air. No significant fluid collection. Bones/joints: Right hip arthroplasty with related artifact limiting evaluation of the pelvis. Old left rib fracture. Old right rib fracture. No dislocation. Soft tissues: Unremarkable. Vasculature: Scattered atherosclerotic vascular calcifications. No abdominal aortic aneurysm. Lymph nodes: Unremarkable. No enlarged lymph nodes. IMPRESSION: Mucosal thickening involving the sigmoid colon suggestive of colitis. . 03:29 Response to treatment: the patient's symptoms have mildly improved after treatment, sp4 patient is well hydrated. Sepsis repeat assessment - fever and tachycardia have improved. ED course: 30 mL/kg sepsis bolus cannot be administered on this patient secondary to history of CHF . 03:33 Differential Diagnosis altered mental status, sepsis, flu. Data reviewed: vital signs, sp4 nurses notes, EMS record, old medical records, lab test result(s), EKG, radiologic studies, CT scan, plain films. Consideration of Admission/Observation Patient was admitted/placed on observation. Escalation of care including admission/observation considered. Management of patient was discussed with the following: Primary Care Provider: Agnes SANDOVAL . ED course: Patient warrants admission for worsening colitis secondary to C. difficile. Which is well-documented in the record.. 09/19 00:02 Order name: CBC with Diff; Complete Time: [facility] 09/19 00:02 Order name: CMP; Complete Time: 4 09/19 00:02 Order name: Lipase; Complete Time: [facility] 09/19 00:02 Order name: Urinalysis w/ reflexes; Complete Time: 03: 4 09/19 00:05 Order name: Blood Culture Adult (2) sp 09/19 00:05 Order name: Lactate w/ 2H reflex if indic.; Complete Time: [facility] 09/19 00:05 Order name: Protime (+inr); Complete Time: 4 09/19 00:05 Order name: Ptt, Activated; Complete Time: 4 09/19 00:12 Order name: BNP; Complete Time: 4 09/19 00:12 Order name: Troponin High Sensitivity; Complete Time: 4 09/19 00:12 Order name: SARS RAPID; Complete Time: [facility] 09/19 00:12 Order name: Influenza Screen (a \T\ B); Complete Time: [facility] 09/19 02:47 Order name: Urine Culture [facility] 09/19 00:02 Order name: CT Abd/Pelvis - IV Contrast Only [facility] 09/19 00:05 Order name: Chest Single View XRAY 4 03 00:05 Order name: EKG; Complete Time: 00:06 4 03 00:02 Order name: IV Saline Lock; Complete Time: 00: sp4 0306 00:02 Order name: Labs collected and sent; Complete Time: 00:14 sp4 0306 00:03 Order name: Bentley; Complete Time: 00: sp4 09/19 00:05 Order name: Accucheck; Complete Time: 00: sp4 03 00:05 Order name: Cardiac monitoring; Complete Time: 00: sp4 09/19 00:05 Order name: EKG - Nurse/Tech; Complete Time: 00:4 09/19 00:05 Order name: O2 Per Protocol; Complete Time: 00:4 09/19 00:05 Order name: O2 Sat Monitoring; Complete Time: 00: sp4 09/19 00:05 Order name: Vital Signs; Complete Time: :4 EC:37 Rate is 110 beats/min. Rhythm is regular, Sinus tachycardia. Left axis deviation noted. sp4 [place] interval is normal. QRS interval is normal. QT interval is normal. No Q waves. T waves are Normal. No ST changes noted. Clinical impression: No evidence of ischemia. Interpreted by me. Administered Medications: 00:48 Drug: NS 0.9% IV 1000 ml IV at 1 bolus Per protocol; 1000 mL bolus Route: IV; Rate: 1 rv bolus; Site: right forearm; 04:10 Follow up: IV Status: Completed infusion; IV Intake: 1000ml rv 00:48 Drug: Famotidine IVP 20 mg IVP once; dilute with 10 mL 0.9% NaCl; give over 2 minutes rv Route: IVP; Site: right forearm; 04:09 Follow up: Response: No adverse reaction; Marked relief of symptoms rv 00:48 Drug: Ondansetron IVP 4 mg IVP once; over 2 minutes Route: IVP; Site: right forearm; rv 04:09 Follow up: Response: No adverse reaction; Marked relief of symptoms rv 00:48 Drug: Acetaminophen PO 1000 mg PO once Route: PO; rv 04:09 Follow up: Response: No adverse reaction; Marked relief of symptoms rv 00:48 Drug: NS 0.9% IV 1000 ml IV at 125 ml/hr continuous Route: IV; Rate: 125 ml/hr; Site: rv right forearm; 04:09 Follow up: IV Status: Infusion continued upon admission rv 01:53 Drug: Piperacillin-Tazobactam IVPB 3.375 grams IVPB once over 60 mins; (mix in NS 100 as9 mL) Route: IVPB; Infused Over: 60 mins; Site: right forearm; 04:09 Follow up: IV Status: Completed infusion; IV Intake: 100ml rv 03:51 Drug: Promethazine PO 25 mg PO once Route: PO; rv 04:09 Follow up: Response: Medication administered at discharge. rv 03:51 Drug: metroNIDAZOLE IVPB 500 mg 100 ml IVPB at 200 ml/hr once over 30 mins Volume: 100 rv ml; Route: IVPB; Rate: 200 ml/hr; Infused Over: 30 mins; Site: right forearm; 04:08 Follow up: IV Status: Infusion continued upon admission rv 03:52 Drug: Handley PO 10 mg-325 mg 1 tabs PO once Route: PO; rv 04:09 Follow up: Response: Medication administered at discharge. rv Disposition Summary: 09/20/23 03:33 Hospitalization Ordered Notes: Hospitalization Status: Inpatient Admission sp4 Provider: Jack Alarcon spSonam Location: Telemetry/[facility] (Inpatient) sp4 Condition: Fair sp4 Problem: new sp4 Symptoms: have improved sp4 Bed/Room Type: Standard sp4 Room Assignment: 409(09/20/23 03:35) jb4 Diagnosis - Enterocolitis due to Clostridium difficile sp4 - Sepsis without septic shock, clostridial colitis, Chronic UTI, physical debility, sp4 chronic generalized pain, type 2 diabetes mellitus, Forms: - Medication Reconciliation Form sp4 - SBAR form sp4 - Leadership Thank You Letter sp4 Signatures: Dispatcher [employer] Minor Silvestre RN RN jb4 Hay Roche RN RN rv Brandon Chiang MD MD sp4 Hong Austin RN RN as9 Corrections: (The following items were deleted from the chart) 03:35 03:33 sp4 jb4
[2023-09-20] MEDS ORDERED: PROMETHAZINE 25 MG TABLET ONE (03:38)
[2023-09-20] MEDS ORDERED: HYDROCODONE/APAP 10/325 TAB ONE (03:38)
[2023-09-20] MEDS ORDERED: METRONIDAZOLE 500mg IVPB 500 MG/100 ML BAG IV ONE (03:39)
[2023-09-20] MEDS ORDERED: ALPRAZOLAM 0.5 MG TABLET PO PRN (04:18)
[2023-09-20] MEDS ORDERED: ALBUTEROL 2.5 MG/3 ML NEB SOL NEB PRN (04:18)
[2023-09-20] MEDS ORDERED: ONDANSETRON 4 MG/2 ML VIAL IV PRN (04:18)
[2023-09-20] MEDS: NA CHLORIDE 0.9% 1,000 ML IV SCH ×2 (05:01→23:01)
[2023-09-20] MEDS: ACETAMINOPHEN 325 MG TABLET PO PRN (05:57)
[2023-09-20] MEDS: INSULIN REGULAR (HUMAN) 100 UNIT/ML SQ SCH (07:30)
[2023-09-20] MEDS: NA CHLORIDE 0.9% 1,000 ML IV ONE (08:26)
[2023-09-20] MEDS ORDERED: VANCOMYCIN HCL 125 MG CAPSULE PO SCH (09:00)
[2023-09-20] MEDS: HYDROCODONE/APAP 10/325 TAB PO PRN (09:12)
[2023-09-20] MEDS: FOLBIC 1 TAB PO SCH (09:13)
[2023-09-20] MEDS: FINASTERIDE 5 MG TAB PO SCH (09:14)
[2023-09-20] MEDS: ASPIRIN EC 81 MG TAB PO SCH (09:14)
[2023-09-20] MEDS: TAMSULOSIN 0.4 MG SR CAP PO SCH (09:14)
[2023-09-20] MEDS: MONTELUKAST 10 MG TAB PO SCH (09:14)
[2023-09-20] MEDS: ALPRAZOLAM 0.5 MG TABLET PO SCH (09:14)
[2023-09-20] MEDS: POTASSIUM CL SA 10 MEQ TAB PO ONE (09:15)
[2023-09-20] MEDS: VANCOMYCIN HCL 125 MG CAPSULE PO SCH (09:15)
[2023-09-20] MEDS: SOTALOL HCL 80 MG TAB PO SCH (09:28)
--- NOTE | 2023-09-20 11:21 | RAD REPORT ---
EXAM DESCRIPTION: CT - Abdomen Pelvis W Contrast - 09/20/2023 6:42 am CLINICAL HISTORY: The patient is 78 years old and is Male; diarrhea, fever, sepsis TECHNIQUE: Axial computed tomography images of the abdomen and pelvis with intravenous contrast. S agittal and coronal reformatted images were created and reviewed. This CT exam was performed using one or more of the following dose reduction techniques: automated exposure control, adjustment of t he mA and/or kV according to patient size, and/or use of iterative reconstruction technique. COMPARISON: No relevant prior studies available. FINDINGS: Lung bases: Unremarkable. No mass. No consolidation. ABDOMEN: Liver: Unremarkable. No mass. Gallbladder and bile ducts: Unremarkable. No calcified stones. No ductal dilation. Pancreas: Unremarkable. No mass. No ductal dilation. Spleen: Unremarkable. No splenomegaly. Adrenals: Unremarkable. No mass. Kidneys and ureters: Unremarkable. No solid mass. No hydronephrosis. Stomach and bowel: Mucosal thickening involving the sigmoid colon suggestive of colitis. Scattered colonic diverticula. No obstruction. PELVIS: Appendix: No findings to suggest acute appendicitis. Bladder: Unremarkable. Reproductive: Unremarkable as visualized. ABDOMEN and PELVIS: Intraperitoneal space: Unremarkable. No free air. No significant fluid collection. Bones/joints: Right hip arthroplasty with related artifact limiting evaluation of the pelvis. Old left rib fracture. Old right rib fracture. No dislocation. Soft tissues: Unremarkable. Vasculature: Scattered atherosclerotic vascular calcifications. No abdominal aortic aneurysm. Lymph nodes: Unremarkable. No enlarged lymph nodes. IMPRESSION: Mucosal thickening involving the sigmoid colon suggestive of colitis. Electronically signed by: Carmelo Zarate MD 09/20/2023 03:05 AM COMPOUNDING ASSISTANT Due to temporary technical issues with the PACS/Fluency reporting system, reports are being signed by the in house radiologist without review as a courtesy to ensure prompt reporting. The interpreting r adiologist is fully responsible for the content of the report
--- NOTE | 2023-09-20 11:54 | RAD REPORT ---
EXAM DESCRIPTION: RAD - Chest Single View - 09/20/2023 12:24 am CLINICAL HISTORY: Sepsis COMPARISON: None. TECHNIQUE: XR CHEST 1 VIEW 09/20/2023 12:05 AM BEHAVIORAL SCIENTIST FINDINGS: The heart is mildly enlarged. Lungs are clear without consolidation, atelectasis, mass or edema. There is no pleural effusion. There is no pneumothorax. There are multiple old posterior left rib fractures. IMPRESSION: No convincing pneumonia. Electronically signed by: Chance Franz MD 09/20/2023 01:28 AM BEHAVIORAL SCIENTIST Due to temporary technical issues with the PACS/Fluency reporting system, reports are being signed by the in house radiologist without review as a courtesy to ensure prompt reporting. The interpreting r adiologist is fully responsible for the content of the report
[2023-09-20 15:45] LABS: CDIFF INTERNAL NEG CONTROL White Background (WHITE BKGD)
[2023-09-20 15:49] LABS: C.diff Antigen/Toxin Ag pos : Tox pos (NEG : NEG)
--- NOTE | 2023-09-20 21:18 | HP ---
Date of Admission: 09/20/2023 Chief Complaint: Diarrhea, fever and chills. History Of Present Illness: This is a 78-year-old pleasant male patient who was diagnosed as having Clostridium difficile colitis during his last hospital admission just little over 1 month ago. The patient was sent home with oral vancomycin and he was also instructed to come for followup at office after the last hospital discharge and our plan was to obviously repeat stool C diff after completion of antibiotics. Apparently, patient never followed up at the office and he reports that his diarrhea problem resolved with vancomycin and he was doing fine until last 2 days or so, his diarrhea problem started again and describes diarrhea as a liquidy stool multiple times a day. Denies any nausea, vomiting, or abdominal pain, but yesterday, he started to have fever and chills, so he came into our emergency room last night and after he was evaluated, he was admitted to the hospital with this problem. Our concern is recurrence of Clostridium difficile colitis infection. In the emergency room, the ER physician gave him 1 dose of Flagyl and Zosyn and after I saw him today, I have started him on oral vancomycin. Allergies: NO KNOWN ALLERGIES. Medications: Albuterol inhaler 2 puffs every 4 hours as needed. Albuterol and Atrovent nebulizer treatment every 4 hours as needed. Tamsulosin 0.4 mg takes 2 capsules daily. Finasteride 5 mg daily. Montelukast 10 mg daily. Folbic 1 tabletdaily. Trelegy inhaler 1 puff daily. Aspirin 81 mg daily. Alprazolam 2 mg, takes1/3 tablet three times a day as needed, Sotalol 80 mg two times a day and Paroxetine 40 mg daily. Review of Systems: Respiratory: As mentioned above. Constitutional: As mentioned above. All other systems reviewed and negative. Past Medical History: Significant for headache, type 2 diabetes mellitus, COPD,hypertension, hyperlipidemia, diverticulosis, benign prostatic hypertrophy,osteoarthritis at multiple sites, anxiety, panic attacks. Past Surgical History: Hernia repair and hip surgery. Social History: Prior history of smoking and use of alcohol occasional. Family History: Mother had lung cancer Physical Examination: Vital Signs: Height 5 feet 11 inches, weight 182 pounds, temperature 101.3, pulse 114, blood pressure 128/89, respiratory rate 20, oxygen saturation 96% General: Awake, alert, oriented, not in distress. HEENT: Head atraumatic, normocephalic. Conjunctivae nonerythematous. Sclerae white. Mouth, no thrush or edema noted. Ears/Nose, no mass, lesion, discharge noted. Neck: Supple. No JVD, lymph nodes, bruit, thyromegaly noted. Lungs: Bilateral good equal air entry. Clear to auscultation. No rhonchi. No rales. Heart: Normal heart sounds, no murmur or gallop. Abdomen: Soft, bowel sounds normal. No guarding, rigidity, tenderness, mass, hepatosplenomegaly, distention, or bruit noted. Extremities: No leg edema. No calf tenderness. Skin: No rash, ulcer, cellulitis. Lymphatics: No lymph node enlargement in neck, supraclavicular, infraclavicular region. Neuro: No focal neurological deficit. Chest: Unremarkable. External Genitalia: Patient has indwelling Bentley catheter. Rectal: Deferred. Laboratory Data: Yesterday white count was 13, hemoglobin 14.1, and a platelet count 318. COVID-19 test negative. Sodium 131, potassium 3.6, chloride 97, bicarb 29, BUN 10, creatinine 0.97, glucose 136. Liver function tests unremarkable. Troponin 12.8. Lipase 27. BNP 700. Urinalysis, leukocyte esterase 250, RBC 5-10, WBC 20-50, bacteria less than 20. Chest x-ray, no acute cardiopulmonary changes. CAT scan of the abdomen and pelvis shows changes of colitis. Stool for C diff done today came back positive. Impression: 1. Clostridium difficile colitis, recurrent. 2. Severe sepsis secondary to above. 3. Benign prostatic hypertrophy with lower urinary tract symptoms with indwelling Bentley catheter. 4. Hypertension. 5. Type 2 diabetes mellitus. 6. Hyperlipidemia. 7. Chronic obstructive pulmonary disease. 8. Diverticulosis. 9. Anxiety. Plan: We will go ahead and admit patient to hospital for further evaluation and management of this problem. Patient is appropriate for inpatient and is expected to spend 2 midnights in hospital. The patient's blood pressure had dropped down after I saw him. This morning when I saw him, he appeared weaker than normal, but still awake, alert, oriented, answering all the questions appropriately and when his blood pressure had dropped down after I saw him, mental status was still normal except he was just feeling weak. IV fluid bolus was ordered and after that, we will continue maintenance IV fluid and with use of IV fluid bolus, his blood pressure responded very well and got stabilized. We will go ahead and give him oral vancomycin per order and patient is on isolation for Clostridium difficile colitis. The patient will continue to have his indwelling Bentley catheter for benign prostatic hypertrophy with obstruction and he is under care of urologist in [place]. For his COPD, we will continue his nebulizer treatment per order. For his history of atrial fibrillation, he is on sotalol and we will continue that as well. He takes alprazolam for his anxiety and will continue that as per order. Details and plan of treatment discussed with the patient. I will see him tomorrow morning for followup. INDRA/JUDY Voice ID: [id number] MTDD
[2023-09-21 03:31] VITALS: BMI 25.4
[2023-09-21 06:54] LABS: Absolute Basophils 0.1 K/uL (0-0.5); Absolute Lymphocytes (CBC) 1.4 K/uL (0.7-4.9); Basophils % 0.5 % (0-1.3); Lymphocytes % 10.8 % (15.3-44.8); MCV 87.9 fL (80-100); MPV 6.5 fL (7.6-11.3); Platelets 262 thou/uL (152-406); RBC Red Blood Cell Count 3.98 M/uL (4.33-5.43)
[2023-09-21 07:11] LABS: Anion Gap 10.3 mEq/L (5.0-15.0); Magnesium 1.6 mg/dL (1.6-2.4); Potassium 3.3 mEq/L (3.5-5.1)
[2023-09-21] MEDS: POTASSIUM CL SA 10 MEQ TAB PO ONE (09:13)
--- NOTE | 2023-09-21 13:16 | ECHO ---
HEIGHT: 5 ft 11 in WEIGHT: 182 lb 0 oz DATE OF STUDY: 09/21/[address]: Jack Alarcon MD 2-DIMENSIONAL: YES M.MODE: YES DOPPLER: YES COLOR FLOW: YES TDS: NO PORTABLE: YES DEFINITY: NO BUBBLE STUDY: NO DIAGNOSIS: HISTORY OF ATRIAL FIBRILLATION CARDIAC HISTORY: CATHERIZATION: SURGERY: PROSTHETIC VALVE: PACEMAKER: MEASUREMENTS (cm) DIASTOLIC (NORMALS) SYSTOLIC (NORMALS) IVSd 1.1 (0.6-1.2) LA Diam 4.0 (1.9-4.0) LVEF 55-60% LVIDd 3.7 (3.5-5.7) LVIDs 2.5 (2.0-3.5) %FS 34% LVPWd 1.1 (0.6-1.2) Ao Diam 3.3 (2.0-3.7) 2 DIMENSIONAL ASSESSMENT: RIGHT ATRIUM: NORMAL LEFT ATRIUM: NORMAL RIGHT VENTRICLE: NORMAL LEFT VENTRICLE: NORMAL TRICUSPID VALVE: TRACE OF TRICUSPID REGURGITATION MITRAL VALVE: NORMAL PULMONIC VALVE: NORMAL AORTIC VALVE: MILD STENOSIS PERICARDIAL EFFUSION: NONE AORTIC ROOT: NORMAL LEFT VENTRICULAR WALL MOTION: NORMAL DOPPLER/COLOR FLOW: LENCHO II DIASTOLIC DYSFUNCTION. COMMENTS: 1. NORMAL LEFT VENTRICULAR SYSTLIC FUNCTION, EJECTION FRACTION 55-60, NORMAL WALL MOTION. 2. GRADE II DIASTOLIC DYSFUNCTION. 3. NORMAL FILLING PRESSURE. TECHNOLOGIST: TRISH ALLRED
--- NOTE | 2023-09-21 14:18 | EKG ---
Test Date: 2023-09-20 Test Time: 00:13:04 [place]: NINA MEASUREMENT RESULTS: Intervals: Rate: 110 OH: 176 QRSD: 82 QT: 314 QTc: 424 [place]: P: 68 OH: 176 QRS: -80 T: 61 INTERPRETIVE STATEMENTS: Sinus tachycardia Left axis deviation Inferior infarct, age undetermined Abnormal ECG Compared to ECG 09/14/2023 17:52:57 No significant changes Electronically Signed On 09-21-23 14:14:00 SAS PROGRAMMER by Demetrio Aguilar
--- NOTE | 2023-09-21 20:45 | PN ---
Date of Progress Note: 09/21/2023 Subjective: The patient was seen this morning for followup. No new complaints or problems reported by the patient. Diarrhea still continues. Last night, he probably had 5 times of still watery stool and multiple times during daytime. No abdominal pain. No nausea, no vomiting. Objective: Vital Signs: Reviewed. HEENT: Unremarkable. Lungs: Clear to auscultation. Heart: Sounds normal. Abdomen: Soft. Bowel sounds normal. No guarding, rigidity, tenderness. No distention. Extremities: No leg edema. Laboratory Data: White count this morning 13.4, hemoglobin 11.9, platelets 262. Sodium 136, potassium 3.3, chloride 106, bicarb 23, BUN 11, creatinine 0.77, glucose was 59, hemoglobin A1c 5.4, magnesium 1.6. Impression: 1. Clostridium difficile colitis. 2. Hypokalemia. 3. Sepsis. 4. Type 2 diabetes mellitus. 5. History of atrial fibrillation. Plan: The patient has reported that he actually has not used sotalol in a very long time and recently sotalol refill was requested and it was sent, but the patient says that he really has not taken it in a long time, but his pharmacy actually did contact him to request a refill in any case. Since he has not taken it in a long time, we will not continue sotalol in the hospital. In fact, I have ordered it to be discontinued. We will get an echocardiogram done on him to look at left ventricular ejection fraction. Replace potassium per order and continue oral vancomycin. I will see him tomorrow for followup, possible discharge to go home tomorrow depending on his condition. INDRA/MODL Voice ID: [id number] Report ID: [id number] [place]
[2023-09-21] MEDS: Banana Flakes/T-Galactooligos 1 Dose Packet PO SCH (20:47)
[2023-09-22 06:53] LABS: Absolute Lymphocytes (CBC) 1.2 K/uL (0.7-4.9); Basophils % 0.5 % (0-1.3); Hematocrit 36.1 % (39.6-49.0); Lymphocytes % 13.5 % (15.3-44.8); MCV 87.1 fL (80-100); MPV 6.3 fL (7.6-11.3); Platelets 261 thou/uL (152-406); RBC Red Blood Cell Count 4.15 M/uL (4.33-5.43)
[2023-09-22 07:07] LABS: Anion Gap 11.4 mEq/L (5.0-15.0); Magnesium 1.5 mg/dL (1.6-2.4); Potassium 3.4 mEq/L (3.5-5.1)
[2023-09-22 09:07] VITALS: BP 168/80; TEMP 97.2
[2023-09-22] MEDS: POTASSIUM CL SA 10 MEQ TAB PO ONE (09:27)
[2023-09-22 09:37] VITALS: O2SAT 96
--- NOTE | 2023-09-23 01:35 | DS ---
Date of Discharge: 09/22/2023 Disposition: Discharged to go home. Physical Examination: HEENT: Unremarkable. Lungs: Clear to auscultation. Heart: Sounds normal. Abdomen: Soft. Bowel sounds normal. No guarding, rigidity, tenderness, distention. Extremities: No leg edema. Laboratory Data: Upon admission, white count 13, hemoglobin 14.1, and platelets 318. Today, white c ount was 8.8, hemoglobin 12.5, and platelets 261. Chemistry: Today, sodium 133, potassium 3.4, chlo ride 102, bicarb 23, BUN 8, creatinine 0.64, glucose 98. Magnesium 1.5. Upon admission, sodium 131, potassium 3.6, chloride 97, bicarb 29, BUN 10, creatinine 0.97, glucose 136. Liver function test un remarkable. Hemoglobin A1c was 5.4, done during this hospitalization. Discharge Medications And Instructions: 1.Albuterol inhaler 2 puffs every 4 hours as needed. 2.Albuterol and Atrovent nebulizer treatment every 4 hours as needed. 3.Tamsulosin 0.4 mg, take 2 capsules daily. 4.Finasteride 5 mg daily. 5.Montelukast 10 mg daily. 6.Folbic 1 tablet daily. 7.Trelegy inhaler 1 puff daily. 8.Aspirin 81 mg daily. 9.Alprazolam 2 mg take one-third tablet 3 times a day as needed. 10.Paroxetine 40 mg daily. 11.Do not take sotalol. 12.New medication, vancomycin 125 mg take 1 capsule by mouth 4 times a day. 13.Metoprolol succinate 25 mg take 1 tablet by mouth daily. 14.Potassium chloride 10 mEq daily for 1 week. 15.Magnesium oxide 400 mg daily for 1 week. 16.Follow up at office a week after. Hospital Course: 78-year-old pleasant male patient, admitted to the hospital with chills, fever, and diarrhea. The patient came into ER after he was evaluated. He was admitted to the hospital with re currence of Clostridium difficile colitis. Please see dictated H and P for more information. After the patient was evaluated in ER, he was admitted to the hospital. He was started on high-dose vancom ycin 500 mg 3 times a day, and overall his condition has improved very well. Diarrhea has improved. In fact, he told me today that he has not had any diarrhea today at all and did not have any diarrhe a last night either. Denies any abdominal pain. He is tolerating diet very well. The patient has a n indwelling Bentley catheter because of benign prostatic hypertrophy with lower urinary tract symptoms and urinary retention, and he is under care of urologist in [place], Dr. Verduzco. The patient will go home with his Bentley catheter. He will also continue to follow up with his urologist as per his s cheduled appointments. I have given him a list of discharge medication and details, and was asked to follow up this list at home as the patient told me that he really did not have clear idea about whic h particular medication he needed to continue to take at home, so I have gone over all this discharge medication list and instructions with him today. This is his recurrence of Clostridium difficile co litis after last hospital admission just little over a month ago, so what we will do this time is to give him vancomycin over longer period of time and when I see him at office a week after next, which he was encouraged to keep appointment. He has not been showing up at office lately for whatever reas on and I have encouraged him to keep that appointment, and at that time we will decide about how to s tart weaning off on the vancomycin. The patient's electrocardiogram showed normal sinus rhythm. An echocardiogram showed normal ejection fraction 55% to 60% with grade 2 diastolic dysfunction. The patient informed me that he has not luther en sotalol in a long time, and I have advised him not to take sotalol and just will start metoprolol and see how that helps him. There is no evidence of recurrence of his atrial fibrillation lately. Final Diagnoses: 1.Clostridium difficile colitis, recurrent. 2.Severe sepsis secondary to above. 3.Benign prostatic hypertrophy with lower urinary tract symptoms with indwelling Bentley catheter. 4.Hypertension. 5.Type 2 diabetes mellitus. 6.Hyperlipidemia. 7.Chronic obstructive pulmonary disease. 8.Diverticulosis. 9.Anxiety. 10.Paroxysmal atrial fibrillation. INDRA/MODL Voice ID: [id number] Report ID: [id number]
== END 2023-09-22 12:08 | disposition home or self-care (01) | DRG 872 ==
LOC: ER 23:56 → ERHOLD 09-20 03:26 → 4TH 09-20 03:38
PROVIDERS: ADMIT Internal Medicine; ATTEND Internal Medicine
DX: A41.9 Sepsis, unspecified organism (principal); A04.71 Enterocolitis due to Clostridium difficile, recurrent; R65.20 Severe sepsis without septic shock; I10 Essential (primary) hypertension; I48.0 Paroxysmal atrial fibrillation; E78.5 Hyperlipidemia, unspecified; E87.6 Hypokalemia; F41.9 Anxiety disorder, unspecified; N40.1 Benign prostatic hyperplasia with lower urinary tract symptoms; M19.90 Unspecified osteoarthritis, unspecified site; J44.9 Chronic obstructive pulmonary disease, unspecified; K57.90 Diverticulosis of intestine, part unspecified, without perforation or abscess without bleeding; Z88.7 Allergy status to serum and vaccine; Z11.52 Encounter for screening for COVID-19; Z79.82 Long term (current) use of aspirin; Z96.641 Presence of right artificial hip joint; Z79.899 Other long term (current) drug therapy
CPT/HCPCS: 36415; 51702; 71045; 74177; 80048; 80053; 81001; 82947; 83036; 83605; 83690; 83735; 83880; 84484; 85025; 85610; 85730; 87040; 87086; 87088; 87324; 87804; 87811; 93005; 93306; 96361; 96365; 96375; 99285; J1815; J2405; J2543; J7030; Q0169; Q9967

== ENCOUNTER 2023-10-17 21:53 | Emergency (ER) | payer OTHER ==
--- NOTE | 2023-10-17 22:47 | ER ---
Nurse's Notes [facility] Name: Shawn Gant Age: 78 yrs Sex: Male : 1945 Arrival Date: 10/17/2023 Time: 21:53 Bed IW9 Private MD: Diagnosis: Mechanical complication of urinary (indwelling) catheter Presentation: 10/16 22:14 Chief complaint: Patient states: do bag drainage tube closure came apart,onset pf1 tonight, needs a new do bag. Coronavirus screen: Vaccine status: Patient reports receiving the 1st dose of the Covid vaccine. Client denies travel out of the [place] in the last 14 days. At this time, the client does not indicate any symptoms associated with coronavirus-19. Ebola Screen: Patient negative for fever greater than or equal to 101.5 degrees Fahrenheit, and additional compatible Ebola Virus Disease symptoms. Initial Sepsis Screen: Does the patient meet any 2 criteria? No. Patient's initial sepsis screen is negative. Does the patient have a suspected source of infection? No. Patient's initial sepsis screen is negative. Risk Assessment: Do you want to hurt yourself or someone else? Patient reports no desire to harm self or others. Onset of symptoms was September 16, 2023. 22:14 Method Of Arrival: Ambulatory pf1 22:14 Acuity: MARIO 4 pf1 Triage Assessment: 22:22 : Reports needs do catheter bag replaced. pf1 Historical: - Allergies: 22:20 Polio Virus Vaccines; pf1 - PMHx: 22:20 borderline DM; COPD; Hypertension; pf1 22:20 History of urinary tract infection; pf1 - PSHx: 22:20 multiple ortho; pf1 - Immunization history:: Adult Immunizations up to date, 6 doses Last tetanus immunization: > 10 years ago Flu vaccine is up to date. - Infectious Disease History:: Denies. - Social history:: Smoking status: Patient/guardian denies using tobacco, the patient reports quitting approximately 15 years ago, Patient uses alcohol, occasionally. Patient/guardian denies using street drugs. Screenin:15 [facility] ED Fall Risk Assessment (Adult) History of falling in the last 3 months, jj7 including since admission No falls in past 3 months (0 pts) Confusion or Disorientation No (0 pts) Intoxicated or Sedated No (0 pts) Impaired Gait No (0 pts) Mobility Assist Device Used No (0 pt) Altered Elimination No (0 pt) Score/Fall Risk Level 0 - 2 = Low Risk Oriented to surroundings, Maintained a safe environment, Educated pt \T\ family on fall prevention, incl call for assistance when getting out of bed. Abuse screen: Denies threats or abuse. Nutritional screening: No deficits noted. Tuberculosis screening: No symptoms or risk factors identified. Assessment: 22:15 General: Appears in no apparent distress. comfortable, Behavior is calm, cooperative, jj7 appropriate for age. Pain: Denies pain. : Do in place needed a do bag change. Vital Signs: 22:14 BP 128 / 91; Pulse 89; Resp 16; Temp 97.5; Pulse Ox 98% on R/A; Weight 79.38 kg; Height pf1 5 ft. 11 in. ; Pain 0/10; 22:45 BP 130 / 87; Pulse 86; Resp 19; Pulse Ox 99% ; jj7 22:14 Body Mass Index 24.41 (79.38 kg, 180.34 cm) pf1 22:14 Pain Scale: Adult pf1 ED Course: 21:55 Patient arrived in ED. jj6 22:00 Lorri Head PA-C is PHCP. sb4 22:00 Brandon Chiang MD is Attending Physician. sb4 22:15 Patient has correct armband on for positive identification. Bed in low position. Call jj7 light in reach. Adult w/ patient. 22:15 No provider procedures requiring assistance completed. Patient did not have IV access jj7 during this emergency room visit. 22:20 Triage completed. pf1 22:46 Joseph Gutierrez MD is Referral Physician. sb4 Administered Medications: No medications were administered Medication: 22:15 VIS not applicable for this client. jj7 Outcome: 22:46 Discharge ordered by . sb4 23:15 Discharged to home ambulatory, with family, pf1 23:15 Condition: improved pf1 23:15 Discharge instructions given to patient, Instructed on discharge instructions, follow up and referral plans. Demonstrated understanding of instructions, follow-up care, 23:27 Patient left the ED. pf1 Signatures: Therese Everett jj6 Eve Mosley RN RN jj7 Lorri Head PA-C PASantiago sb4 Giovanna Jeffrey, FIONA RN pf1 Corrections: (The following items were deleted from the chart) 22: 22:20 PMHx: urinary infection; pf1 pf1 10/17 07:26 10/16 22:30 BP 130 / 87; Pulse 86bpm; Resp 19bpm; Pulse Ox 99%; jj7 jj7
--- NOTE | 2023-10-17 22:47 | EDPHYS ---
Physician Documentation [facility] Name: Shawn Gant Age: 78 yrs Sex: Male : 1945 Arrival Date: 10/17/2023 Time: 21:53 Bed IW9 Private MD: ED Physician Brandon Chiang HPI: 10/16 22:52 This 78 yrs old Male presents to ER via Ambulatory with complaints of Problem With sb4 Urinary Catheter. 22:52 do catheter tubing came apart, patient requesting replacement. no other complaints sb4 or concerns at this time. Historical: - Allergies: 22:20 Polio Virus Vaccines; pf1 - PMHx: 22:20 borderline DM; COPD; Hypertension; pf1 22:20 History of urinary tract infection; pf1 - PSHx: 22:20 multiple ortho; pf1 - Immunization history:: Adult Immunizations up to date, 6 doses Last tetanus immunization: > 10 years ago Flu vaccine is up to date. - Infectious Disease History:: Denies. - Social history:: Smoking status: Patient/guardian denies using tobacco, the patient reports quitting approximately 15 years ago, Patient uses alcohol, occasionally. Patient/guardian denies using street drugs. ROS: 22:52 Constitutional: Negative for fever, chills, and weight loss, sb4 Exam: 22:52 Constitutional: This is a well developed, well nourished patient who is awake, alert, sb4 and in no acute distress. Head/Face: Normocephalic, atraumatic. Eyes: Extra-ocular motions intact. Periorbital areas with no swelling, redness, or edema. ENT: Mucous membranes moist. Skin: Warm, dry with normal turgor. Normal color with no rashes, no lesions, and no evidence of cellulitis. MS/ Extremity: Pulses equal, no cyanosis. Neurovascular intact. Full, normal range of motion. Neuro: Awake and alert, GCS 15, oriented to person, place, time, and situation. Motor strength 5/5 in all extremities. Sensory grossly intact. Vital Signs: 22:14 BP 128 / 91; Pulse 89; Resp 16; Temp 97.5; Pulse Ox 98% on R/A; Weight 79.38 kg; Height pf1 5 ft. 11 in. ; Pain 0/10; 22:45 BP 130 / 87; Pulse 86; Resp 19; Pulse Ox 99% ; jj7 22:14 Body Mass Index 24.41 (79.38 kg, 180.34 cm) pf1 22:14 Pain Scale: Adult pf1 MDM: 22:23 Patient medically screened. sb4 22:52 Data reviewed: vital signs, nurses notes, and as a result, I will discharge patient. sb4 Counseling: I had a detailed discussion with the patient and/or guardian regarding the historical points, exam findings, and any diagnostic results supporting the discharge/admit diagnosis, the need for outpatient follow up, a urologist, to return to the emergency department if symptoms worsen or persist or if there are any questions or concerns that arise at home. 10/16 22:24 [place] [facility]: replace do bag; Complete Time: 22:55 sb4 Administered Medications: No medications were administered Disposition: 23:58 Co-signature as Attending Physician, Brandon Chiang MD I agree with the assessment sp4 and plan of care. I reviewed the patient's care provided by Advanced Practice Provider \T\ agree w/ the diagnosis \T\ care plan. I personally saw the pt \T\ performed a substantive portion of the visit, incldng all aspects of the (History/Exam/Medical Decision Making). Disposition Summary: 10/17/23 22:46 Discharge Ordered Notes: Location: Home sb4 Problem: new sb4 Symptoms: are resolved sb4 Condition: Stable sb4 Diagnosis - Mechanical complication of urinary (indwelling) catheter sb4 Followup: sb4 - With: Joseph Gutierrez MD - When: As needed - Reason: Recheck today's complaints, Re-evaluation by your physician Discharge Instructions: - Discharge Summary Sheet sb4 - Indwelling Urinary Catheter Care, Adult, [id number] sb4 Forms: - Thank You Letter sb4 - Patient Portal Instructions sb4 - Leadership Thank You Letter sb4 Signatures: Lorri Head PA-C PA-C sb4 Giovanna Jeffrey RN RN pf1 Brandon Chiang MD MD sp4 Corrections: (The following items were deleted from the chart) 22:22 22:20 PMHx: urinary infection; pf1 pf1
[2023-10-18 00:29] VITALS: BP 128/91; TEMP 97.5; O2SAT 98
== END 2023-10-17 23:27 | disposition home or self-care (01) ==
LOC: ER 21:53
DX: T83.098A Other mechanical complication of other urinary catheter, initial encounter (principal); Z88.7 Allergy status to serum and vaccine
CPT/HCPCS: 99282

== ENCOUNTER 2023-11-16 13:13 | Inpatient (IN) | payer OTHER ==
[2023-11-16 14:30] LABS: Absolute Eosinophils 0.1 K/uL (0-0.5); Absolute Lymphocytes (CBC) 1.2 K/uL (0.7-4.9); Absolute Monocytes 0.6 K/uL (0.1-1.3); Basophils % 0.2 % (0-1.3); Eosinophils % 0.9 % (0-4.4); Hematocrit 45.2 % (39.6-49.0); Lymphocytes % 9.4 % (15.3-44.8); MCH 28.8 pg (27.0-35.0); MCHC 33.2 g/dL (32.0-36.0); MCV 86.6 fL (80-100); MPV 6.5 fL (7.6-11.3); Monocytes % 4.9 % (3.3-12.3); Neutrophils % 84.6 % (41.7-73.7); Nucleated Red Blood Cells % 0.1 % (0-0); Platelets 289 thou/uL (152-406); RBC Red Blood Cell Count 5.22 M/uL (4.33-5.43); Red Cell Distribution Width 15.5 % (12.1-15.2)
[2023-11-16 14:39] LABS: PT Prothrombin Time 11.7 SECONDS (9.5-12.5); PTT, Activated Partial Thromb 32.3 SECONDS (24.3-36.9); Protime INR 1.07
[2023-11-16 14:50] LABS: Albumin 3.6 g/dL (3.4-5.0); Albumin/Globulin Ratio 0.8 (1.1-1.8); Anion Gap 10.6 mEq/L (5.0-15.0); Globulin 4.4 g/dL (2.3-3.5); Potassium 3.6 mEq/L (3.5-5.1)
[2023-11-16 15:14] LABS: Specific Gravity 1.015 (1.005-1.030); Sqamous Epithelial None Seen /HPF (None Seen); Urine Bacteria <20 /HPF (<20); Urine Bilirubin NEGATIVE (Negative); Urine Blood 3+ (OVER) (Negative); Urine Clarity Extremely Turbid (Clear); Urine Color Yellow (Yellow); Urine Culture Reflex Order REFLEXED; Urine Glucose NEGATIVE (Negative); Urine Ketones 1+ (Negative); Urine Microscopic Reflex YN ORDER UMIC; Urine Mucus Slight /HPF (None Seen); Urine Nitrite 2+ (Negative); Urine Protein 2+ (Negative); Urine RBC >50 /HPF (None Seen); Urine Urobilinogen Normal (Normal); Urine WBC >50 /HPF (<5); Urine Yeast (Budding) Trace /HPF (None Seen)
--- NOTE | 2023-11-16 15:38 | RAD REPORT ---
EXAM DESCRIPTION: CTAbdomen Pelvis W Contrast - 11/16/2023 3:24 pm CLINICAL HISTORY: Abdominal pain. ABD PAIN COMPARISON: Abdomen Pelvis W Contrast dated 09/20/2023; Abdomen Pelvis W Contrast dated 08/18/2023 TECHNIQUE: Biphasic CT imaging of the abdomen and pelvis was performed with 100 ml non-ionic IV cont rast. All CT scans are performed using dose optimization technique as appropriate and may include automated exposure control or mA/KV adjustment according to patient size. FINDINGS: The lung bases are clear. The liver, spleen, pancreas, adrenal glands and kidneys are within normal limits. No bowel obstruction, free air, free fluid or abscess. Aortoiliac atherosclerosis. The appendix is no t identified as a discrete structure, however, no secondary findings of appendicitis are identified. Moderate mucosal thickening is present involving the rectosigmoid colon. No pneumatosis coli. No quita dence of significant lymphadenopathy. Right hip arthroplasty. Moderate lumbar degenerative changes IMPRESSION: Moderate rectosigmoid colitis pattern is present.
--- NOTE | 2023-11-16 16:16 | RAD REPORT ---
EXAM DESCRIPTION: RAD - Chest Single View - 11/16/2023 4:08 pm CLINICAL HISTORY: COUGH Chest pain. COMPARISON: <Comparisons> FINDINGS: Portable technique limits examination quality. The lungs are emphysematous but grossly clear. The heart is mildly enlarged in size. No displaced fra ctures. IMPRESSION: No acute intrathoracic process suspected.
--- NOTE | 2023-11-16 16:49 | ER ---
Nurse's Notes [facility] Name: Shawn Gant Age: 78 yrs Sex: Male : 1945 Arrival Date: 11/16/2023 Time: 13:13 Bed 13 Private MD: Diagnosis: UTI/ Urinary tract infection, site not specified;Infectious gastroenteritis and colitis, unspecified Presentation: 11/15 13:30 Chief complaint: EMS states: patient called due to thinking he had a UTI, was shaking ko1 this morning and also has been having loose stools. Coronavirus screen: At this time, the client does not indicate any symptoms associated with coronavirus-19. Ebola Screen: No symptoms or risks identified at this time. Initial Sepsis Screen: Does the patient meet any 2 criteria? No. Patient's initial sepsis screen is negative. Does the patient have a suspected source of infection? No. Patient's initial sepsis screen is negative. Risk Assessment: Do you want to hurt yourself or someone else? Patient reports no desire to harm self or others. Onset of symptoms is unknown. 13:30 Method Of Arrival: EMS: [facility] ko1 13:30 Acuity: MARIO 3 ko1 Triage Assessment: 13:30 General: Appears in no apparent distress. ill, unkempt, Behavior is calm, cooperative, ko1 appropriate for age. Pain: Denies pain. EENT: No deficits noted. Neuro: No deficits noted. Cardiovascular: No deficits noted. Respiratory: No deficits noted. GI: Reports diarrhea, incontinence. : Bentley in place to gravity drainage. Derm: No deficits noted. Musculoskeletal: No deficits noted. Historical: - Allergies: 15:28 Polio Virus Vaccines; ko1 - PMHx: 15:28 borderline DM; COPD; History of urinary tract infection; Hypertension; ko1 - PSHx: 15:28 multiple ortho; ko1 - Immunization history:: Adult Immunizations up to date. - Infectious Disease History:: CDIFF, . - Social history:: Smoking status: Patient/guardian denies using tobacco, but has a distant history of tobacco abuse. - Family history:: not pertinent. - Hospitalizations: : No recent hospitalization is reported. Screenin:30 [facility] ED Fall Risk Assessment (Adult) History of falling in the last 3 months, ko1 including since admission No falls in past 3 months (0 pts) Confusion or Disorientation No (0 pts) Intoxicated or Sedated No (0 pts) Impaired Gait Yes (1 pt) Mobility Assist Device Used Yes (1 pt) Altered Elimination Yes (1 pt) Score/Fall Risk Level 3 or more points = High Risk Oriented to surroundings, Maintained a safe environment, Educated pt \T\ family on fall prevention, incl call for assistance when getting out of bed, Assessed \T\ reinforced patient's understanding of fall precautions, Provided non-skid footwear, Hourly rounding (assess needs \T\ fall precautionary measures) done, Used ambulatory aids as needed (educated on \T\ assisted with), Used gait belt as appropriate Implemented a Fall Risk Plan of Care, Apply high fall risk patient identification: yellow non skid footwear/ fall signage, Remained w/in arm's length of patient and in sight while toileting, Offered frequent toileting (1:1 observation), Remained with patient while ambulating, Utilized family, sitter, or virtual management advisor as indicated. Abuse screen: Denies threats or abuse. Denies injuries from another. Nutritional screening: No deficits noted. Tuberculosis screening: No symptoms or risk factors identified. Assessment: 13:30 Reassessment: see triage note. ko1 Vital Signs: 13:30 BP 138 / 97; Pulse 91; Resp 17; Temp 98.3; Pulse Ox 97% on R/A; ko1 15:00 BP 158 / 107; Pulse 90; Resp 18; Pulse Ox 98% ; ko1 17:47 BP 141 / 97; Pulse 95; Resp 16; Pulse Ox 98% ; ko1 ED Course: 13:17 Patient arrived in ED. rn 13:17 Wes Hubbard MD is Attending Physician. rn 13:30 Arm band placed on right wrist. Patient placed in an exam room, on a stretcher, on ko1 residential monitor, on pulse oximetry, Patient notified of wait time. 13:30 Patient has correct armband on for positive identification. Allergy band placed. Fall ko1 risk band placed. Placed in gown. Bed in low position. Call light in reach. Side rails up X2. Provided Education on: tests. Client placed on continuous cardiac and pulse oximetry monitoring. NIBP monitoring applied. monitoring and evaluation advisor on. Door closed. Noise minimized. Lights dimmed. Warm blanket given. Pillow given. Verbal reassurance given. 13:46 Ailyn Birch, RN is Primary Nurse. ko1 14:25 Inserted saline lock: 20 gauge in right antecubital area, using aseptic technique. ko1 Blood collected. 14:28 Blood Culture Adult (2) Sent. ko1 14:28 CBC with Diff Sent. ko1 14:28 CMP Sent. ko1 14:29 Protime (+inr) Sent. ko1 14:29 Ptt, Activated Sent. ko1 14:30 Initial lab(s) drawn, by me, sent to lab. First set of blood cultures drawn by me, ko1 Second set of blood cultures drawn by me, EKG done, by ED staff, reviewed by Wes Hubbard MD. 14:30 Assisted to bathroom. Assisted to bedside commode. Cleaned of incontinence. ko1 15:03 Urinalysis w/ reflexes Sent. ko1 15:25 CT Abd/Pelvis - IV Contrast Only In Process Unspecified. EDMS 15:28 Triage completed. ko1 16:10 XRAY Chest (1 view) In Process Unspecified. EDMS 16:13 No provider procedures requiring assistance completed. ko1 16:47 Ken Alarcon MD is Hospitalizing Provider. rn 17:55 Bentley cath removed intact, balloon deflated. ko1 18:05 Bentley cath inserted, using sterile technique, 16 Fr., by sd, balloon inflated, to ko1 gravity drainage. 18:22 Patient admitted, IV remains in place. ko1 18:24 Assisted to bathroom. Assisted to bedside commode. Cleaned of incontinence. Linen ko1 changed. Administered Medications: 17:04 Drug: Cefepime IVPB 1 grams IVPB at 200 ml/hr once over 30 mins; (mix in NS 100 mL) ko1 Route: IVPB; Rate: 200 ml/hr; Infused Over: 30 mins; Site: right antecubital; 17:32 Follow up: Response: No adverse reaction; IV Status: Completed infusion; IV Intake: ko1 100ml 17:05 Drug: morphine IVP or IV 2 mg IVP once over 4 mins Route: IVP; Infused Over: 4 mins; ko1 Site: right antecubital; 17:20 Follow up: Response: No adverse reaction; Pain is decreased; RASS: Alert and Calm (0) ko1 17:34 Drug: metroNIDAZOLE IVPB 500 mg 100 ml IVPB at 200 ml/hr once over 30 mins Volume: 100 ko1 ml; Route: IVPB; Rate: 200 ml/hr; Infused Over: 30 mins; Site: right antecubital; 18:05 Follow up: Response: No adverse reaction; IV Status: Completed infusion; IV Intake: ko1 100ml Medication: 18:22 VIS not applicable for this client. ko1 Intake: 17:32 IV: 100ml; Total: 100ml. ko1 18:05 IV: 100ml; Total: 200ml. ko1 Outcome: 16:48 Decision to Hospitalize by Provider. rn 18:24 Admitted to Med/surg accompanied by tech, via stretcher, room 406, with chart, Report ko1 called to faxed 18:24 Condition: stable 18:24 Instructed on the need for admit, 18:29 Patient left the ED. ko1 Signatures: Dispatcher [employer] EDMS Wes Hubbard MD MD rn Oliver, Kathy, RN RN ko1 Corrections: (The following items were deleted from the chart) 15:06 15:05 BP 138 / 97; Pulse 91bpm; Resp 17bpm; Pulse Ox 97% RA; Temp 98.3F; ko1 ko1
--- NOTE | 2023-11-16 16:49 | EDPHYS ---
Physician Documentation [facility] Name: Shawn Gant Age: 78 yrs Sex: Male : 1945 Arrival Date: 11/16/2023 Time: 13:13 Bed 13 Private MD: ED Physician Wes Hubbard HPI: 11/15 17:17 This 78 yrs old Male presents to ER via EMS with complaints of chills, doesn't feel rn well. 17:17 Patient reports waking up this morning not feeling well, chills and cannot stop rn shaking. Has indwelling Do catheter for approximately 3 months. Also reports nonbloody diarrhea.. Onset: The symptoms/episode began/occurred this morning. Severity of symptoms: At their worst the symptoms were moderate in the emergency department the symptoms are unchanged. The patient has not experienced similar symptoms in the past. The patient has not recently seen a physician. Historical: - Allergies: 15:28 Polio Virus Vaccines; ko1 - PMHx: 15:28 borderline DM; COPD; History of urinary tract infection; Hypertension; ko1 - PSHx: 15:28 multiple ortho; ko1 - Immunization history:: Adult Immunizations up to date. - Infectious Disease History:: CDIFF, . - Social history:: Smoking status: Patient/guardian denies using tobacco, but has a distant history of tobacco abuse. - Family history:: not pertinent. - Hospitalizations: : No recent hospitalization is reported. ROS: 17:17 Constitutional: Positive for chills Cardiovascular: Negative for chest pain, rn palpitations, and edema, Respiratory: Positive for cough, negative for shortness of breath. Feels at baseline for his COPD Abdomen/GI: Mild lower abdominal pain with nonbloody diarrhea. MS/Extremity: Negative for injury and deformity, Skin: Negative for injury, rash, and discoloration, Neuro: Positive for generalized weakness Exam: 15:45 ECG was reviewed by the Attending Physician. rn 17:17 Constitutional: This is a well developed, well nourished patient who is awake, alert, rn and in no acute distress. ENT: Dry mucous membranes Cardiovascular: Regular rate and rhythm. No pulse deficits. Respiratory: Speaking full sentences, unlabored. No increased work of breathing, no retractions or nasal flaring. Abdomen/GI: Soft, nontender, no peritoneal signs MS/ Extremity: Pulses equal, no cyanosis. Neuro: Awake and alert, GCS 15 Vital Signs: 13:30 BP 138 / 97; Pulse 91; Resp 17; Temp 98.3; Pulse Ox 97% on R/A; ko1 15:00 BP 158 / 107; Pulse 90; Resp 18; Pulse Ox 98% ; ko1 17:47 BP 141 / 97; Pulse 95; Resp 16; Pulse Ox 98% ; ko1 MDM: 13:17 Patient medically screened. rn 17:17 Differential Diagnosis Urinary tract infection, colitis, C. difficile colitis. Data rn reviewed: vital signs, nurses notes, lab test result(s), radiologic studies, CT scan, plain films, and as a result, I will admit patient. Consideration of Admission/Observation Patient was admitted/placed on observation. Escalation of care including admission/observation considered. Management of patient was discussed with the following: Primary Care Provider: Discussed case with Dr. Alarcon, will admit with IV antibiotics and for further care. Counseling: I had a detailed discussion with the patient and/or guardian regarding the historical points, exam findings, and any diagnostic results supporting the discharge/admit diagnosis, lab results, radiology results, the need for further work-up and treatment in the hospital. Response to treatment: the patient's symptoms have mildly improved after treatment, and as a result, I will admit patient. 11/15 13:17 Order name: Blood Culture Adult (2) rn 11/15 13:17 Order name: CBC with Diff; Complete Time: 15:08 11/15 13:17 Order name: CMP; Complete Time: 15:08 rn 11/15 13:17 Order name: Lactate w/ 2H reflex if indic.; Complete Time: 15:08 rn 11/15 13:17 Order name: Protime (+inr); Complete Time: 15:08 rn 11/15 13:17 Order name: Ptt, Activated; Complete Time: 15:08 rn 11/15 13:17 Order name: Urinalysis w/ reflexes; Complete Time: 16:33 rn 11/15 15:20 Order name: Urine Culture EDGA 11/15 16:39 Order name: CDIFF rn 11/15 15:08 Order name: CT Abd/Pelvis - IV Contrast Only; Complete Time: 16:33 rn 11/15 15:08 Order name: XRAY Chest (1 view); Complete Time: 16:33 rn 11/15 13:17 Order name: EKG; Complete Time: 13:18 rn 11/15 13:17 Order name: Accucheck; Complete Time: 14:40 rn 11/15 13:17 Order name: Cardiac monitoring; Complete Time: 13:47 rn 11/15 13:17 Order name: EKG - Nurse/Tech; Complete Time: 14:28 rn 11/15 13:17 Order name: IV Saline Lock - Large Bore; Complete Time: 14:28 rn 11/15 13:17 Order name: Labs collected and sent; Complete Time: 14:28 rn 11/15 13:17 Order name: O2 Per Protocol; Complete Time: 13:47 rn 11/15 13:17 Order name: O2 Sat Monitoring; Complete Time: 13:47 rn 11/15 13:17 Order name: Vital Signs; Complete Time: 13:47 rn 11/15 17:17 Order name: Do: change out do; Complete Time: 18:28 rn EC:45 Rate is 91 beats/min. Rhythm is regular. Left axis deviation noted. QRS is positive in rn lead I and negative in lead aVF. SC interval is normal. QRS interval is normal. QT interval is normal. No Q waves. T waves are Normal. No ST changes noted. Clinical impression: NSR w/ Non-specific ST/T Changes. Interpreted by me. Reviewed by me. Administered Medications: 17:04 Drug: Cefepime IVPB 1 grams IVPB at 200 ml/hr once over 30 mins; (mix in NS 100 mL) ko1 Route: IVPB; Rate: 200 ml/hr; Infused Over: 30 mins; Site: right antecubital; 17:32 Follow up: Response: No adverse reaction; IV Status: Completed infusion; IV Intake: ko1 100ml 17:05 Drug: morphine IVP or IV 2 mg IVP once over 4 mins Route: IVP; Infused Over: 4 mins; ko1 Site: right antecubital; 17:20 Follow up: Response: No adverse reaction; Pain is decreased; RASS: Alert and Calm (0) ko1 17:34 Drug: metroNIDAZOLE IVPB 500 mg 100 ml IVPB at 200 ml/hr once over 30 mins Volume: 100 ko1 ml; Route: IVPB; Rate: 200 ml/hr; Infused Over: 30 mins; Site: right antecubital; 18:05 Follow up: Response: No adverse reaction; IV Status: Completed infusion; IV Intake: ko1 100ml Disposition Summary: 11/16/23 16:48 Hospitalization Ordered Notes: Hospitalization Status: Inpatient Admission rn Provider: Ken Alarcon rn Location: Telemetry/MedSurg (Inpatient) rn Condition: Stable rn Problem: new rn Symptoms: have improved rn Bed/Room Type: Standard rn Room Assignment: [facility](11/16/23 17:40) 6 Diagnosis - UTI/ Urinary tract infection, site not specified rn - Infectious gastroenteritis and colitis, unspecified rn Forms: - Medication Reconciliation Form rn - SBAR form rn - Leadership Thank You Letter rn Signatures: Dispatcher [employer] Wes Johns MD MD rn Oliver, Kathy, RN RN ko1 Carol Vazquez 6 Corrections: (The following items were deleted from the chart) 16:39 16:39 C.difficile GDH Ag \T\ Toxin AB+LAB.BRZ ordered. [facility] EDGA 17:30 16:48 rn 6 17:40 17:30 [address] [id number]
[2023-11-16] MEDS ORDERED: MORPHINE 2 MG/ML SYR ONE (16:57)
[2023-11-16] MEDS ORDERED: CEFEPIME 1 GM/VIAL ONE (16:58)
[2023-11-16] MEDS ORDERED: NA CHLORIDE 0.9% 100 ML ONE (16:58)
[2023-11-16] MEDS ORDERED: METRONIDAZOLE 500mg IVPB 500 MG/100 ML BAG IV ONE (17:33)
[2023-11-16] MEDS ORDERED: ONDANSETRON 4 MG/2 ML VIAL IV PRN (19:20)
[2023-11-16] MEDS ORDERED: MORPHINE 4 MG/ML SYR IV PRN (19:20)
[2023-11-16] MEDS: NA CHLORIDE 0.9% 1,000 ML IV SCH (20:03)
[2023-11-16 20:25] VITALS: BMI 24.0
[2023-11-17] MEDS: METRONIDAZOLE 500mg IVPB 500 MG/100 ML BAG IV SCH (00:16)
[2023-11-17] MEDS: ACETAMINOPHEN 500 MG TAB PO PRN (01:26)
[2023-11-17] MEDS: CEFEPIME 1 GM in NA CHLORIDE 0.9% 100 ML IV SCH ×2 (09:00→21:16)
[2023-11-17 10:03] LABS: Absolute Eosinophils 0.2 K/uL (0-0.5); Absolute Lymphocytes (CBC) 1.1 K/uL (0.7-4.9); Absolute Monocytes 0.8 K/uL (0.1-1.3); Absolute Neutrophil 6.9 K/uL (1.8-8.0); Anion Gap 9.3 mEq/L (5.0-15.0); Basophils % 0.3 % (0-1.3); Eosinophils % 1.8 % (0-4.4); Hemoglobin 12.9 g/dL (13.6-17.9); Lymphocytes % 12.3 % (15.3-44.8); MCH 28.7 pg (27.0-35.0); MCHC 33.1 g/dL (32.0-36.0); MCV 86.8 fL (80-100); MPV 6.9 fL (7.6-11.3); Neutrophils % 76.6 % (41.7-73.7); Platelets 231 thou/uL (152-406); Potassium 3.3 mEq/L (3.5-5.1); RBC Red Blood Cell Count 4.49 M/uL (4.33-5.43); Red Cell Distribution Width 15.4 % (12.1-15.2)
[2023-11-17] MEDS ORDERED: ALBUTEROL INHALER 200 PUFF/6.7 GM IH PRN (10:28)
[2023-11-17] MEDS: NA CHLORIDE 0.9% 1,000 ML IV SCH (10:30)
[2023-11-17] MEDS: VANCOMYCIN HCL 125 MG CAPSULE PO SCH (12:00)
--- NOTE | 2023-11-17 12:09 | PN ---
Date of Progress Note: 11/17/2023 Subjective: The patient was seen this morning for followup. No new complaints or problems reported by the patient. He was lying in bed, not in distress. Had one episode of diarrhea overnight. Denies any abdominal pain, nausea, vomiting. Objective: Vital Signs: Reviewed. HEENT: Unremarkable. Lungs: Clear to auscultation. Heart: Sounds normal. Abdomen: Soft. Bowel sounds normal. No guarding, rigidity, tenderness, distention. Extremities: No leg edema. Impression: 1. Urinary tract infection. 2. Clostridium difficile colitis, recurrent. 3. Chronic obstructive pulmonary disease. 4. Benign prostatic hypertrophy with lower urinary tract symptoms. Plan: We will go ahead and continue current antibiotic which is cefepime while waiting on the urine culture result which is still pending. Blood culture has remained negative so far. We will go ahead and give vancomycin 125 mg 4 times a day for recurrent Clostridium difficile colitis. Continue current treatment for COPD, use Lovenox for DVT prophylaxis. We will keep the patient in hospital until urine culture result becomes available. The patient should be in isolation for Clostridium difficile colitis and stool was sent for Clostridium difficile toxin and result is pending. For benign prostatic hypertrophy, he has indwelling Bentley catheter and the patient reports that last month, he did communicate with the urologist regarding followup appointment and he was told by the urologist that while he has this Clostridium difficile colitis problem, they will not do any further intervention and they have not advised him to go for any followup visit while he is having this problem. INDRA/JUDY Voice ID: [id number] Report ID: [id number] [place]
[2023-11-17] MEDS: FAMOTIDINE 20 MG TAB PO SCH ×2 (13:15→21:00)
[2023-11-17 13:23] LABS: CDIFF INTERNAL NEG CONTROL White Background (WHITE BKGD); STOOL CONSISTENCY Liquid/Semi-Solid
[2023-11-17 13:24] LABS: C.diff Antigen/Toxin Ag pos : Tox pos (NEG : NEG)
--- NOTE | 2023-11-17 14:38 | EKG ---
Test Date: 2023-11-16 Test Time: 14:12:12 Jewel Cupping Machine Operator: LISSA MEASUREMENT RESULTS: Intervals: Rate: 91 OR: 186 QRSD: 84 QT: 366 QTc: 450 [place]: P: 83 OR: 186 QRS: -73 T: 71 INTERPRETIVE STATEMENTS: Normal sinus rhythm Left axis deviation Pulmonary disease pattern Septal infarct, age undetermined Abnormal ECG Compared to ECG 09/20/2023 00:13:04 Sinus tachycardia no longer present Myocardial infarct finding still present Electronically Signed On 11-17-23 14:35:47 CDT by Demetrio Aguilar
[2023-11-17] MEDS: ALBUTEROL 2.5 MG/3 ML NEB SOL NEB SCH (19:00)
[2023-11-17] MEDS: IPRATROPIUM BROM 0.5MG/2.5ML NEB SCH (19:00)
[2023-11-17] MEDS: IPRATROPIUM BROM 0.5MG/2.5ML IH SCH (19:00)
[2023-11-17] MEDS: ENOXAPARIN 40 MG/0.4 ML SQ ONE (19:53)
[2023-11-17] MEDS: ALBUTEROL 2.5 MG/3 ML NEB SOL IH SCH (20:40)
[2023-11-17] MEDS: VANCOMYCIN ORAL SOLN 250 MG/5 ML OSYR PO SCH (21:00)
[2023-11-17] MEDS: VANCOMYCIN 1 GM/VIAL ONE (21:06)
[2023-11-17] MEDS: VANCOMYCIN 500 MG/VIAL ONE (21:09)
[2023-11-17] MEDS: ENOXAPARIN 40 MG/0.4 ML SQ SCH (21:15)
--- NOTE | 2023-11-17 21:15 | HP ---
Date of Admission: 11/16/2023 Chief Complaint: Fever and chills. History Of Present Illness: This is a 78-year-old very pleasant male patient who has indwelling Bentley catheter for benign prostatic hypertrophy for last several months, has been under care of urologist in [place] and as of August of this year, he is having Clostridium difficile colitis problem. The patient has taken vancomycin as prescribed and unfortunately is having recurrent problem with this Clostridium difficile colitis. Recently, he was advised to continue vancomycin, but to take it 2 times a day, which is 125 mg 2 times a day and he has been taking it, last dose was yesterday. He continues to have diarrhea on a daily basis with this Clostridium difficile colitis and he describes his diarrhea as loose stool up anywhere from 2-3 times a day and this has remained stable for some time now. Today, all of a sudden, he started to have fever and chills and feeling very weak, so with that, he contacted office and he was advised to come to emergency room. After he was evaluated in the ER, he was admitted to the hospital with urinary tract infection and CAT scan of the abdomen showing colitis in the rectosigmoid area. When I saw him in the emergency room, he was lying in bed, not in any respiratory distress. He has severe COPD and dyspnea with activity, which has remained unchanged. Denies any expectoration or any cough, congestion lately. Medications: Albuterol inhaler 2 puffs every 4 hours as needed, albuterol and Atrovent nebulizer treatment every 4 hours as needed, tamsulosin 0.4 mg takes 2 capsules daily, finasteride 5 mg daily, montelukast 10 mg daily, Folbic 1 tablet daily, Trelegy inhaler 1 puff daily, aspirin 81 mg daily, alprazolam 2 mg takes 1/3rd tablet 3 times a day as needed, paroxetine 40 mg daily, metoprolol succinate 25 mg daily, vancomycin 125 mg 2 times a day. Allergies: NO KNOWN ALLERGIES. Review of Systems: Genitourinary: As mentioned above. Constitutional: As mentioned above. GI: As mentioned above. All other systems reviewed and negative. Past Medical History: Significant for recurrent Clostridium difficile colitis problem with initial episode in August of 2023. past medical history also significant for headache, type 2 diabetes mellitus, COPD, hypertension, hyperlipidemia, diverticulosis, benign prostatic hypertrophy with lower urinary tract symptoms, osteoarthritis at multiple sites, anxiety, panic attacks. Past Surgical History: Hernia repair and hip surgery. Social History: Prior history of smoking, not at present time. Use of alcohol occasional. Family History: Mother had lung cancer. Physical Examination: Vital Signs: Height 5 feet 11 inches, weight 171 pounds temperature 98.3, pulse 91, respiratory rate 17, blood pressure 138/97, oxygen saturation 97%. General: Awake, alert, oriented, not in distress. HEENT: Head atraumatic, normocephalic. Conjunctivae nonerythematous. Sclerae white. Mouth, no thrush or edema noted. Ears/Nose, no mass, lesion, discharge noted. Neck: Supple. No JVD, lymph nodes, bruit, thyromegaly noted. Lungs: Bilateral good equal air entry. Clear to auscultation. No rhonchi. No rales. Heart: Normal heart sounds, no murmur or gallop. Abdomen: Soft, bowel sounds normal. No guarding, rigidity, tenderness, mass, hepatosplenomegaly, distention, or bruit noted. Extremities: No leg edema. No calf tenderness. Skin: No rash, ulcer, cellulitis. Lymphatics: No lymph node enlargement in neck, supraclavicular, infraclavicular region. Neuro: No focal neurological deficit. Chest: Unremarkable. External Genitalia: Deferred. Rectal: Deferred. Genitourinary: The patient has Bentley catheter in place. Laboratory Data: White count 13, hemoglobin 15, platelets 289. Sodium 130, potassium 3.6, chloride 96, bicarb 27, BUN 9, creatinine 1.04, glucose 115. Lactic acid 1.3. Liver function tests unremarkable. Urinalysis; 1+ ketones, 3+ blood, more than 500 leukocyte esterase, more than 50 rbc, more than 50 wbc, bacteria less than 20. Trace amount of budding yeast. CAT scan of the abdomen, moderate rectosigmoid colitis pattern present. Chest x-ray; no acute cardiopulmonary abnormality. Impression: 1. Urinary tract infection. 2. Clostridium difficile colitis, recurrent. 3. Hyponatremia. 4. Benign prostatic hypertrophy with lower urinary tract symptoms with indwelling Bentley catheter. 5. Hypertension. 6. Type 2 diabetes mellitus. 7. Hyperlipidemia. 8. Chronic obstructive pulmonary disease. 9. Diverticulosis. 10. Anxiety. 11. Osteoarthritis, multiple sites. Plan: The patient is appropriate for inpatient and will be admitted to the hospital as an inpatient and is expected to spend 2 midnights in hospital. For his fever and chills, I strongly suspect that that is due to urinary tract infection because of underlying indwelling Bentley catheter. Considering he has indwelling Bentley catheter, his urinalysis always will be abnormal, but when he develops signs symptoms of infection like fever and chills, one has to strongly consider urinary tract infection as underlying possibility, which we are doing so at this point and we will start appropriate antibiotic which is cefepime and follow up on culture results and make a decision regarding culture specific antibiotic once the result is available. As far as recurrent Clostridium difficile colitis is concerned, I do not believe that that is actually causing this fever and chills because his symptoms of diarrhea has not changed lately and he has taken vancomycin as prescribed, which is currently 125 mg 2 times a day. My plan is to continue vancomycin for longer period of time and we will try to slowly reduce the dose over period of time and we already have done it because initially he was taking 125 mg 4 times a day and now he is taking 2 times a day. While in the hospital, taking IV antibiotics for urinary tract infection, we will give vancomycin 125 mg 4 times a day. Plan is to then wean off the vancomycin as the time goes on to the smallest possible dose and that will be 125 mg, maybe 2 times a week as a maintenance dose, at least that is the plan that I am thinking about at this time. We will follow up on blood culture results as well. DVT prophylaxis will be given using Lovenox. For his COPD, we will continue his Trelegy inhaler and albuterol inhaler as needed and COPD problem is stable at this time. The patient takes his finasteride and tamsulosin and we will continue that at this time along with the indwelling Bentley catheter for his benign prostatic hypertrophy with lower urinary tract symptoms. For his anxiety, he takes paroxetine and we will continue that. No need for any further intervention and we will continue alprazolam on a p.r.n. basis. I have reviewed his prior hospitalization records from August and september of this year as well as last office visit note. We also discussed advanced directives and according to patient's decision, he does not want any heroic measures like CPR, defibrillation, or ventilator support and we will write DNR order in the chart per his decision. Total time spent 80 minutes. INDRA/JUDY Voice ID: [id number] MTDLata
[2023-11-17] MEDS: MONTELUKAST 10 MG TAB PO SCH (21:20)
[2023-11-17] MEDS: ALPRAZOLAM 0.5 MG TABLET PO PRN (21:42)
[2023-11-17] MEDS: HYDROCODONE/APAP 5/325 MG TAB PO PRN (21:42)
[2023-11-17] MEDS: WATER FOR INJ,STERILE 10 ML ONE (21:46)
[2023-11-18] MEDS: METRONIDAZOLE 500mg IVPB 500 MG/100 ML BAG IV SCH (00:18)
[2023-11-18] MEDS: WATER FOR INJ,STERILE 10 ML ONE (02:46)
[2023-11-18] MEDS: VANCOMYCIN 500 MG/VIAL ONE (02:50)
[2023-11-18] MEDS ORDERED: ALBUTEROL INHALER 200 PUFF/6.7 GM IH PRN (07:30)
[2023-11-18] MEDS: VANCOMYCIN HCL 125 MG CAPSULE PO SCH ×2 (08:00→08:37)
[2023-11-18] MEDS: ASPIRIN 81 MG CHEWABLE TABLET PO SCH (08:37)
[2023-11-18] MEDS: FINASTERIDE 5 MG TAB PO SCH (08:37)
[2023-11-18] MEDS: METOPROLOL XL 25 MG TAB PO SCH (08:37)
[2023-11-18] MEDS: PARoxetine HCL 10 MG TAB PO SCH (08:38)
[2023-11-18] MEDS: TAMSULOSIN 0.4 MG SR CAP PO SCH (08:38)
[2023-11-18] MEDS: **PT MED**Fluticasone/Umeclidin/Vilanter [Trelegy Ellipta 100-62.5-25] Blst.W.Dev IH SCH (09:00)
[2023-11-18] MEDS ORDERED: TAMSULOSIN 0.4 MG SR CAP PO SCH (09:00)
[2023-11-18] MEDS: POTASSIUM CL SA 10 MEQ TAB PO SCH (10:52)
--- NOTE | 2023-11-18 13:06 | DS ---
Date of Discharge: 11/18/2023 Disposition: Discharged to go home. Discharge Medications: Continue all prior home medications. Take following new medications: 1.Bactrim DS 1 tablet by mouth 2 times a day with food for 1 week. 2.Vancomycin 125 mg capsule, take 1 capsule by mouth 4 times a day for 1 week, then 1 capsule by marko th 3 times a day for 1 week, then 1 capsule by mouth 2 times a day for 1 week, then 1 capsule by mout h daily to continue. 3.Take liky-sdo-iepgoon potassium 99 mg, take 1 tablet by mouth daily. Follow up at my office during week of 11/27/2023. Patient to schedule his appointment with Dr. Jiménez for pain management for his chronic knee pain. Labs Done During This Hospitalization: Urine culture came back today growing klebsiella and it is se nsitive to cefepime that the patient has received during this hospitalization and it is also sensitiv e to Bactrim, Cipro, Levaquin, etc. His CBC upon admission on 11/16/2023: White count 13, hemoglobi n 15, platelets 289. Yesterday, white count 9, hemoglobin 12.9, platelets 231. Chemistry upon admis allison on 11/16/2023: Sodium 130, potassium 3.6, chloride 96, bicarb 27, BUN 9, creatinine 1.04, gluco se 115. Lactic acid 1.3. Liver function tests unremarkable. Yesterday, sodium 133, potassium 3.3, chloride 102, bicarb 25, BUN 8, creatinine 0.79, glucose 108. Urinalysis upon admission showed 1+ ke tones, 3+ blood, 2+ nitrite, 500 leukocyte esterase, more than 50 RBC, more than 50 WBC, less than 20 bacteria. Hospital Course: This is a 78-year-old very pleasant male patient admitted to the hospital with feve r and chills. Please see dictated H and P for more information. The patient has recurrent Clostridi um difficile colitis and this problem started in August and he has been on vancomycin, and up until this hospitalization, he was taking vancomycin 125 mg 2 times a day and our plan is to cut down on t he dose of vancomycin as the time goes on. His Clostridium difficile colitis problem has remained no w recurrent ongoing issue for him resulting in diarrhea anywhere from 2 to 4 times a day. Describes his stool as loose stool. This really has not changed at all. Denies any abdominal pain, nausea, vo miting related to this. Only thing different was that he had fever and chills and that resulted in t his emergency room visit and hospital admission and we believe that this is due to urinary tract infe ction. He has indwelling Bentley catheter because of benign prostatic hypertrophy with lower urinary t ract symptoms including urinary retention and he has indwelling Bentley catheter for that reason. His urologist is Dr. Verduzco in [place] and they did try to remove the catheter and within matter a few days, he ended up having urinary retention requiring replacement of Bentley catheter and now any defini tive treatment, his urologist has informed him that while he has Clostridium difficile colitis, he wi ll not be able to undergo any definite treatment. So, unfortunately, he has this indwelling Bentley ca theter in place, which puts him at high risk of having infection like what has happened this time. A fter he was evaluated in the ER, he was admitted to the hospital. Empiric antibiotics, cefepime, was started for urinary tract infection and we started him on vancomycin 125 mg 4 times a day. His urin e culture result came back today, and according to that he has received appropriate IV antibiotics an d our plan is to discharge him to go home with culture specific oral antibiotic for 1 week. When the patient was admitted to the hospital, we did communicate with him regarding advance directives and D NR order was written in the chart as per patient's decision, but today, he brought up the discussion about his code status again and he had a lot of questions about it and I spent almost 30 minutes disc ussing with him regarding his code status and details regarding all the heroic measures that we perfo rm and not knowing what the outcome will be or what kind of shape or condition any particular patient will be in as a result of acute medical problems in response to the heroic measures. Those are all unpredictable things. After long discussion, I was able to get a clear answer from him that he does not want DNR order to be in place, so I have changed it to full code and he has communicated in the p ast with his and one more time, he was encouraged to make sure that he has clear-cut communicati on with his of what exactly he wants in the event of any critical illness like that requiring ca rdiopulmonary resuscitation and depending on his condition and recovery after such aggressive measure s, the decision can be made between physicians as well as the patient's . The patient is expecte d to continue to have diarrhea with this recurrent Clostridium difficile colitis and he was advised t o take vbcv-lki-jwvfzbg potassium 99 mg 1 tablet daily as this can result in hypokalemia like what we have seen during this hospitalization. The patient is having recurrent problem with knee pain, and recently, he took hydrocodone from one of his friend and that actually helped him very much and I have advised him to follow up with [facility] physician for this and he will follow up with Dr. Jiménez, and he will schedule his own appoi ntment, but if he needs any assistance, he will call my office for that. Final Diagnoses: 1.Urinary tract infection. 2.Clostridium difficile colitis, recurrent. 3.Hyponatremia. 4.Hypokalemia. 5.Benign prostatic hypertrophy with lower urinary tract symptoms with indwelling Bentley catheter. 6.Hypertension. 7.Type 2 diabetes mellitus. 8.Hyperlipidemia. 9.Chronic obstructive pulmonary disease. 10.Diverticulosis. 11.Anxiety. 12.Osteoarthritis, multiple sites. Total time spent today was 45 minutes. INDRA/MODL Voice ID: [id number] Report ID: [id number]
[2023-11-18 14:47] VITALS: BP 125/79; TEMP 97.1
[2023-11-18 14:57] VITALS: O2SAT 94
== END 2023-11-18 12:46 | disposition home or self-care (01) | DRG 699 ==
LOC: ER 13:13 → ERHOLD 17:24 → 2ND 18:14
PROVIDERS: ADMIT Internal Medicine; ATTEND Internal Medicine
DX: T83.511A Infection and inflammatory reaction due to indwelling urethral catheter, initial encounter (principal); A04.71 Enterocolitis due to Clostridium difficile, recurrent; E87.1 Hypo-osmolality and hyponatremia; N39.0 Urinary tract infection, site not specified; I10 Essential (primary) hypertension; M19.09 Primary osteoarthritis, other specified site; E78.5 Hyperlipidemia, unspecified; F41.9 Anxiety disorder, unspecified; E11.9 Type 2 diabetes mellitus without complications; G89.29 Other chronic pain; M25.569 Pain in unspecified knee; N40.1 Benign prostatic hyperplasia with lower urinary tract symptoms; J44.9 Chronic obstructive pulmonary disease, unspecified; K57.30 Diverticulosis of large intestine without perforation or abscess without bleeding; B96.1 Klebsiella pneumoniae [K. pneumoniae] as the cause of diseases classified elsewhere; B96.5 Pseudomonas (aeruginosa) (mallei) (pseudomallei) as the cause of diseases classified elsewhere; Z66 Do not resuscitate; Z88.7 Allergy status to serum and vaccine; Z87.891 Personal history of nicotine dependence
CPT/HCPCS: 36415; 51702; 71045; 74177; 80048; 80053; 81001; 83605; 85025; 85610; 85730; 87040; 87077; 87086; 87088; 87186; 87324; 93005; 94640; 96365; 96367; 96375; 99285; J0692; J1650; J2270; J7030; J7613; J7644; Q9967

== ENCOUNTER 2024-01-08 06:56 | Inpatient (IN) | payer OTHER ==
[2024-01-08] MEDS ORDERED: NA CHLORIDE 0.9% 1,000 ML ONE (07:21)
[2024-01-08] MEDS ORDERED: CEFEPIME 2 GM VIAL ONE (07:21)
[2024-01-08] MEDS ORDERED: NA CHLORIDE 0.9% 100 ML ONE (07:21)
[2024-01-08 07:53] LABS: Absolute Eosinophils 0.1 K/uL (0-0.5); Absolute Lymphocytes (CBC) 0.5 K/uL (0.7-4.9); Absolute Monocytes 1.1 K/uL (0.1-1.3); Absolute Neutrophil 7.5 K/uL (1.8-8.0); Basophils % 0.3 % (0-1.3); Eosinophils % 0.6 % (0-4.4); Hematocrit 39.7 % (39.6-49.0); Hemoglobin 13.6 g/dL (13.6-17.9); Lymphocytes % 5.8 % (15.3-44.8); MCH 30.5 pg (27.0-35.0); MCHC 34.2 g/dL (32.0-36.0); MCV 89.2 fL (80-100); Monocytes % 11.9 % (3.3-12.3); Neutrophils % 81.4 % (41.7-73.7); Platelets 178 thou/uL (152-406); RBC Red Blood Cell Count 4.45 M/uL (4.33-5.43)
[2024-01-08 07:59] LABS: Specific Gravity 1.022 (1.005-1.030); Sqamous Epithelial <5 /HPF (None Seen); Urine Bacteria 20-50 /HPF (<20); Urine Bilirubin NEGATIVE (Negative); Urine Blood Trace (Negative); Urine Clarity Extremely Turbid (Clear); Urine Color Yellow (Yellow); Urine Culture Reflex Order REFLEXED; Urine Glucose NEGATIVE (Negative); Urine Ketones NEGATIVE (Negative); Urine Microscopic Reflex YN ORDER UMIC; Urine Mucus Slight /HPF (None Seen); Urine Nitrite 2+ (Negative); Urine Protein 2+ (Negative); Urine Triple Phosphate Crystal Moderate /HPF (None Seen); Urine Urobilinogen Normal (Normal); Urine WBC >50 /HPF (<5)
[2024-01-08 08:00] LABS: PT Prothrombin Time 12.7 SECONDS (9.4-12.5); PTT, Activated Partial Thromb 30.6 SECONDS (24.3-36.9); Protime INR 1.16
[2024-01-08 08:09] LABS: ALT/SGPT 20 U/L (16-61); AST/SGOT < 10 U/L (15-37); Albumin 3.3 g/dL (3.4-5.0); Albumin/Globulin Ratio 0.9 (1.1-1.8); Alkaline Phosphatase 61 U/L (45-117); Anion Gap 9.4 mEq/L (5.0-15.0); BUN Blood Urea Nitrogen 16 mg/dL (7-18); Bicarbonate 25 mEq/L (21-32); Globulin 3.5 g/dL (2.3-3.5); Glomerular Filtration Rate 57 ml/min (=/>90); Glucose Level 146 mg/dL (74-106); Potassium 3.4 mEq/L (3.5-5.1); Protein, Total 6.8 g/dL (6.4-8.2); Sodium Level 136 mEq/L (136-145)
--- NOTE | 2024-01-08 08:37 | RAD REPORT ---
EXAM DESCRIPTION: RADChest Single View01/08/2024 8:26 am CLINICAL HISTORY: FEVER COMPARISON: Chest Single View dated 11/16/2023; Chest Single View dated 09/20/2023; Chest Single View [place] 09/14/2023; Chest Single View dated 08/18/2023 TECHNIQUE: Portable AP view of the chest. FINDINGS: The lungs are clear. Chronic interstitial changes again seen. Multiple left rib deformitie s suggesting sequelae of remote trauma. No pneumothorax or effusion. The cardiomediastinal contours are unremarkable. IMPRESSION: No acute cardiopulmonary process.
--- NOTE | 2024-01-08 09:11 | ER ---
Nurse's Notes [facility] Name: Shawn Gant Age: 78 yrs Sex: Male : 1945 Arrival Date: 01/08/2024 Time: 06:56 Bed 5 Private MD: Diagnosis: UTI/ Urinary tract infection, site not specified;Severe sepsis without septic shock Presentation: 01/07 07:02 Chief complaint: Patient states: fever, chills X2 days. Coronavirus screen: Client lg3 denies travel out of the [place] in the last 14 days. At this time, the client does not indicate any symptoms associated with coronavirus-19. Ebola Screen: No symptoms or risks identified at this time. Initial Sepsis Screen: Does the patient meet any 2 criteria? HR > 90 bpm. Does the patient have a suspected source of infection?. Risk Assessment: Do you want to hurt yourself or someone else? Patient reports no desire to harm self or others. Onset of symptoms is unknown. Care prior to arrival: Medication(s) given: Tylenol, 975 mg. 07:02 Method Of Arrival: EMS: [facility] lg3 07:02 Acuity: MARIO 3 lg3 Triage Assessment: 07:05 General: Appears in no apparent distress. comfortable, Behavior is calm, cooperative. lg3 Pain: Denies pain. EENT: No deficits noted. No signs and/or symptoms were reported regarding the EENT system. Neuro: No deficits noted. Shepard Agitation-Sedation Scale (RASS): 0 - Alert and Calm Level of Consciousness is awake, alert, obeys commands, Oriented to person, place, time, situation. Cardiovascular: No deficits noted. Denies chest pain, shortness of breath, Capillary refill < 3 seconds Clubbing of nail beds is absent JVD is absent Patient's skin is warm and dry. Respiratory: No deficits noted. Airway is patent Respiratory effort is even, unlabored, Respiratory pattern is regular, symmetrical. GI: No deficits noted. No signs and/or symptoms were reported involving the gastrointestinal system. Abdomen is round non-distended. : Bentley in place to gravity drainage Urine is cloudy. Derm: Skin is intact, is thin, Skin is diaphoretic, Skin is normal, Skin temperature is warm. Musculoskeletal: No deficits noted. No signs and/or symptoms reported regarding the musculoskeletal system. Circulation, motion, and sensation intact. Range of motion: intact in all extremities. Historical: - Allergies: 07:05 Polio Virus Vaccines; lg3 - Home Meds: 07:05 Unable to obtain [Active]; lg3 - PMHx: 07:05 borderline DM; COPD; History of urinary tract infection; Hypertension; lg3 - PSHx: 07:05 multiple ortho; lg3 - Immunization history:: Adult Immunizations up to date. - Infectious Disease History:: Denies. - Social history:: Smoking status: Patient reports the use of cigarette tobacco products, cigars, Patient uses alcohol, weekly. street drugs, psilocybin, THC gummies. - Family history:: not pertinent. Screenin:18 [facility] ED Fall Risk Assessment (Adult) History of falling in the last 3 months, ld1 including since admission No falls in past 3 months (0 pts) Confusion or Disorientation No (0 pts) Intoxicated or Sedated No (0 pts) Impaired Gait Yes (1 pt) Mobility Assist Device Used No (0 pt) Altered Elimination No (0 pt) Score/Fall Risk Level 0 - 2 = Low Risk Oriented to surroundings, Maintained a safe environment, Educated pt \T\ family on fall prevention, incl call for assistance when getting out of bed, Assessed \T\ reinforced patient's understanding of fall precautions, Provided non-skid footwear, Hourly rounding (assess needs \T\ fall precautionary measures) done, Used ambulatory aids as needed (educated on \T\ assisted with), Used gait belt as appropriate. Abuse screen: Denies threats or abuse. Denies injuries from another. Nutritional screening: No deficits noted. Tuberculosis screening: No symptoms or risk factors identified. Assessment: 07:30 General: Appears in no apparent distress. unkempt, Behavior is calm, appropriate for ko1 age. Pain: Denies pain. Neuro: No deficits noted. Cardiovascular: No deficits noted. Respiratory: No deficits noted. GI: Reports diarrhea. : Bentley in place to gravity drainage. EENT: No deficits noted. Derm: No deficits noted. Musculoskeletal: No deficits noted. 10:32 Reassessment: Patient appears in no apparent distress at this time. No changes from ko1 previously documented assessment. Patient and/or family updated on plan of care and expected duration. Pain level reassessed. Patient is alert, oriented x 3, equal unlabored respirations, skin warm/dry/pink. Vital Signs: 07:02 BP 104 / 68; Pulse 103; Resp 15 S; Temp 98.6; Weight 93.44 kg (R); Height 5 ft. 10 in. lg3 (R); 08:18 BP 148 / 85; Pulse 87; Resp 19; Pulse Ox 98% on R/A; ld1 10:32 BP 98 / 63; Pulse 83; Resp 16; Pulse Ox 99% ; ko1 07:02 Body Mass Index 29.56 (93.44 kg, 177.8 cm) lg3 ED Course: 07:01 Patient arrived in ED. vc1 07:01 Parvez Nunez MD is Attending Physician. rt 07:05 Triage completed. lg3 07:05 Arm band placed on right wrist. lg3 07:30 Provided Education on: call light, labs, meds. ko1 07:30 Warm blanket given. Pillow given. Head of bed elevated. ko1 07:39 Ailyn Birch RN is Primary Nurse. ko1 07:42 Inserted saline lock: 20 gauge in right antecubital area, using aseptic technique. ld1 Blood collected. 08:17 Assisted to bedside commode. Cleaned of incontinence. Linen changed. Clean brief ld1 applied to patient. 08:18 Patient has correct armband on for positive identification. Placed in gown. Bed in low ld1 position. Call light in reach. Side rails up X2. certified first assistant on. Pulse ox on. NIBP on. Door closed. Noise minimized. Warm blanket given. 08:18 No provider procedures requiring assistance completed. ld1 08:28 Chest Single View In Process Unspecified. EDMS 08:59 Assisted to bedside commode. Cleaned of incontinence. Linen changed. ko1 09:10 Jack Alarcon MD is Hospitalizing Provider. rt 10:05 Assisted with bedpan. Cleaned of incontinence. Linen changed. ko1 10:40 Cleaned of incontinence. Linen changed. ko1 Administered Medications: 07:39 Drug: NS 0.9% IV 1000 ml IV at 1 bolus Per protocol; 1000 mL bolus Route: IV; Rate: 1 ko1 bolus; Site: right forearm; 09:00 Follow up: Response: No adverse reaction; IV Status: Completed infusion; IV Intake: ko1 1000ml 07:40 Drug: Cefepime IVPB 2 grams IVPB at 200 ml/hr once over 30 mins; (mix in NS 100 mL) ko1 Route: IVPB; Rate: 200 ml/hr; Infused Over: 30 mins; Site: right forearm; 08:10 Follow up: Response: No adverse reaction; IV Status: Completed infusion; IV Intake: ko1 100ml 10:27 Drug: LevaQUIN IVPB 750 mg IVPB once Route: IVPB; Site: right forearm; ko1 Medication: 08:18 VIS not applicable for this client. ko1 Intake: 08:10 IV: 100ml; Total: 100ml. ko1 09:00 IV: 1000ml; Total: 1100ml. ko1 Outcome: 09:10 Decision to Hospitalize by Provider. rt 10:58 Patient left the ED. ko1 Signatures: Dispatcher [employer] EDMS Jana Saldana RN RN lg3 Jena Calderón RN RN luc1 Elenita Urias RN RN 1 Ailyn Birch RN RN ko1 Parvez Nunez MD MD rt
--- NOTE | 2024-01-08 09:11 | EDPHYS ---
Physician Documentation [facility] Name: Shawn Gant Age: 78 yrs Sex: Male : 1945 Arrival Date: 01/08/2024 Time: 06:56 Bed 5 Private MD: ED Physician Parvez Nunez HPI: 01/07 07:26 This 78 yrs old Male presents to ER via EMS with complaints of Fever. rt 07:26 Patient with history of indwelling Bentley catheter presents to the ED with fever, chills rt for about 2 days. EMS was called, patient was found be febrile with mildly low blood pressures, was tachycardic to 112. 700 cc of fluid, acetaminophen given. Patient denies other specific symptoms at this time, symptoms are moderate in severity, no other aggravating or alleviating factors.. Historical: - Allergies: 07:05 Polio Virus Vaccines; lg3 - Home Meds: 07:05 Unable to obtain [Active]; lg3 - PMHx: 07:05 borderline DM; COPD; History of urinary tract infection; Hypertension; lg3 - PSHx: 07:05 multiple ortho; lg3 - Immunization history:: Adult Immunizations up to date. - Infectious Disease History:: Denies. - Social history:: Smoking status: Patient reports the use of cigarette tobacco products, cigars, Patient uses alcohol, weekly. street drugs, psilocybin, THC gummies. - Family history:: not pertinent. ROS: 07:26 Cardiovascular: Negative for chest pain, palpitations, and edema, Respiratory: Negative rt for shortness of breath, cough, wheezing, and pleuritic chest pain, Abdomen/GI: Negative for abdominal pain, nausea, vomiting, diarrhea, and constipation, Skin: Negative for injury, rash, and discoloration, Neuro: Negative for headache, weakness, numbness, tingling, and seizure, 07:26 Constitutional: Positive for chills, fever, Exam: 07:26 Constitutional: This is a well developed, well nourished patient who is awake, alert, rt and in no acute distress. Head/Face: Normocephalic, atraumatic. Chest/axilla: Normal chest wall appearance and motion. Nontender with no deformity. No lesions are appreciated. Cardiovascular: Regular rate and rhythm with a normal S1 and S2. No gallops, murmurs, or rubs. Normal PMI, no JVD. No pulse deficits. Respiratory: Lungs have equal breath sounds bilaterally, clear to auscultation and percussion. No rales, rhonchi or wheezes noted. No increased work of breathing, no retractions or nasal flaring. Abdomen/GI: Soft, non-tender, with normal bowel sounds. No distension or tympany. No guarding or rebound. No evidence of tenderness throughout. Skin: Warm, dry with normal turgor. Normal color with no rashes, no lesions, and no evidence of cellulitis. MS/ Extremity: Pulses equal, no cyanosis. Neurovascular intact. Full, normal range of motion. Neuro: Awake and alert, GCS 15, oriented to person, place, time, and situation. Cranial nerves II-XII grossly intact. Motor strength 5/5 in all extremities. Sensory grossly intact. Cerebellar exam normal. Normal gait. 07:26 : Indwelling Bentley catheter noted., 09:10 ECG was reviewed by the Attending Physician. rt Vital Signs: 07:02 BP 104 / 68; Pulse 103; Resp 15 S; Temp 98.6; Weight 93.44 kg (R); Height 5 ft. 10 in. lg3 (R); 08:18 BP 148 / 85; Pulse 87; Resp 19; Pulse Ox 98% on R/A; ld1 10:32 BP 98 / 63; Pulse 83; Resp 16; Pulse Ox 99% ; ko1 07:02 Body Mass Index 29.56 (93.44 kg, 177.8 cm) lg3 MDM: 07:01 Patient medically screened. rt 09:12 Differential diagnosis: Sepsis, UTI, pneumonia. Data reviewed: vital signs, nurses rt notes, lab test result(s), EKG, radiologic studies. Consideration of Admission/Observation Patient was admitted/placed on observation. Management of patient was discussed with the following: Primary Care Provider: Agrees to admit. I considered the following discharge prescriptions or medication management in the emergency department Medications were administered in the Emergency Department. See MAR. Independent interpretation of the following test(s) in the Emergency Department X-Ray: My interpretation is No pneumonia seen on interpretation of x-ray images. Care significantly affected by the following chronic conditions: Chronic Obstructive Pulmonary Disease. Counseling: I had a detailed discussion with the patient and/or guardian regarding the historical points, exam findings, and any diagnostic results supporting the discharge/admit diagnosis, lab results, radiology results, the need for further work-up and treatment in the hospital. Response to treatment: the patient's symptoms have markedly improved after treatment. 01/07 07:18 Order name: Blood Culture Adult (2) rt 01/07 07:18 Order name: CBC with Diff rt 01/07 07:18 Order name: CMP rt 01/07 07:18 Order name: Lactate w/ 2H reflex if indic. rt 01/07 07:18 Order name: Protime (+inr) rt 01/07 07:18 Order name: Ptt, Activated rt 01/07 07:18 Order name: Urinalysis w/ reflexes rt 01/07 07:44 Order name: Glucose, Ancillary Testing; Complete Time: 08:57 EDMS 01/07 07:47 Order name: Glucose, Ancillary Testing EDMS 01/07 07:47 Order name: Comprehensive Metabolic Panel EDMS 01/07 07:47 Order name: Lactate w/ 2H reflex if indic. EDMS 01/07 07:47 Order name: CBC with Automated Diff EDMS 01/07 07:47 Order name: Protime (+INR) EDMS 01/07 07:47 Order name: PTT, Activated Partial Thromb EDMS 01/07 07:47 Order name: Urinalysis w/ reflexes EDMS 01/07 07:47 Order name: Blood Culture EDMS 01/07 07:48 Order name: Blood Culture EDMS 01/07 08:03 Order name: Urine Culture EDMS 01/07 08:18 Order name: Chest Single View; Complete Time: 08:57 EDMS 01/07 07:18 Order name: Accucheck; Complete Time: 07:39 rt 01/07 07:18 Order name: Cardiac monitoring; Complete Time: 07:19 rt 01/07 07:18 Order name: EKG - Nurse/Tech; Complete Time: 07:39 rt 01/07 07:18 Order name: IV Saline Lock - Large Bore; Complete Time: 07:39 rt 01/07 07:18 Order name: Labs collected and sent; Complete Time: 07:39 rt 01/07 07:18 Order name: O2 Per Protocol; Complete Time: 07:19 rt 01/07 07:18 Order name: O2 Sat Monitoring; Complete Time: 07:19 rt 01/07 07:18 Order name: Vital Signs; Complete Time: 07:19 rt EC:10 Rate is 92 beats/min. Rhythm is regular, Normal Sinus Rhythm with No ectopy. Left axis rt deviation noted. OK interval is normal. QRS interval is normal. QT interval is normal. No Q waves. No ST changes noted. Interpreted by me. Administered Medications: 07:39 Drug: NS 0.9% IV 1000 ml IV at 1 bolus Per protocol; 1000 mL bolus Route: IV; Rate: 1 ko1 bolus; Site: right forearm; 09:00 Follow up: Response: No adverse reaction; IV Status: Completed infusion; IV Intake: ko1 1000ml 07:40 Drug: Cefepime IVPB 2 grams IVPB at 200 ml/hr once over 30 mins; (mix in NS 100 mL) ko1 Route: IVPB; Rate: 200 ml/hr; Infused Over: 30 mins; Site: right forearm; 08:10 Follow up: Response: No adverse reaction; IV Status: Completed infusion; IV Intake: ko1 100ml 10:27 Drug: LevaQUIN IVPB 750 mg IVPB once Route: IVPB; Site: right forearm; ko1 Disposition Summary: 01/08/24 09:10 Hospitalization Ordered Notes: Hospitalization Status: Inpatient Admission rt Provider: Jack Alarcon rt Location: Telemetry/[facility] [place] (Inpatient) rt Condition: Stable rt Problem: new rt Symptoms: have improved rt Bed/Room Type: Standard rt Room Assignment: 211(01/08/24 10:01) bd Diagnosis - UTI/ Urinary tract infection, site not specified rt - Severe sepsis without septic shock rt Forms: - Medication Reconciliation Form rt - SBAR form rt - Leadership Thank You Letter rt Critical care time excluding procedures: 09:12 Critical care time: Bedside Care: 30 minutes, Consultation: 5 minutes. Total time: 35 rt minutes Signatures: Dispatcher [employer] EDValerie Moore Lacie RN RN lg3 Ailyn Birch, FIONA RN ko1 Parvez Nunez MD MD rt Corrections: (The following items were deleted from the chart) 08:55 08:54 BLOOD CULTURE*+BA.LAB.BRZ ordered. EDMS EDMS 08:55 08:54 CBC+H.LAB.BRZ ordered. EDMS EDMS 08:55 08:54 COMPREHENSIVE METABOLIC PANEL+C.LAB.BRZ ordered. EDMS EDMS 08:55 08:54 LACTATE+C.LAB.BRZ ordered. EDMS EDMS 08:55 08:54 PROTIME (+INR)+COAG.LAB.BRZ ordered. EDMS EDMS 08:55 08:54 PTT, ACTIVATED+COAG.LAB.BRZ ordered. EDMS EDMS 08:55 08:54 Urinalysis+U.LAB.BRZ ordered. EDMS EDMS 08:55 08:55 Chest Single View+RAD.RAD.BRZ ordered. EDMS EDMS 10:01 09:10 rt bd
[2024-01-08] MEDS ORDERED: Levofloxacin 750mg IV 750 MG/150 ML BAG IV ONE (10:26)
[2024-01-08] MEDS: VANCOMYCIN HCL 125 MG CAPSULE PO ONE (11:20)
[2024-01-08 11:56] VITALS: BMI 25.7
[2024-01-08] MEDS: VANCOMYCIN HCL 125 MG CAPSULE PO SCH (13:00)
[2024-01-08] MEDS: NA CHLORIDE 0.9% 1,000 ML IV SCH (14:14)
[2024-01-08] MEDS: ACETAMINOPHEN 325 MG TABLET PO PRN (14:29)
[2024-01-08] MEDS: IPRATROPIUM BROM 0.5MG/2.5ML NEB SCH (19:23)
[2024-01-08] MEDS: ALBUTEROL 2.5 MG/3 ML NEB SOL NEB SCH (19:23)
[2024-01-08] MEDS: ALPRAZOLAM 0.5 MG TABLET PO PRN (22:18)
[2024-01-08] MEDS: ENOXAPARIN 40 MG/0.4 ML SQ SCH (22:18)
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
[2024-01-09 02:20] VITALS: O2SAT 97
[2024-01-09 03:37] LABS: Absolute Eosinophils 0.2 K/uL (0-0.5); Absolute Lymphocytes (CBC) 1.2 K/uL (0.7-4.9); Absolute Monocytes 0.9 K/uL (0.1-1.3); Absolute Neutrophil 3.9 K/uL (1.8-8.0); Basophils % 0.3 % (0-1.3); Eosinophils % 2.5 % (0-4.4); Hematocrit 35.2 % (39.6-49.0); Lymphocytes % 19.8 % (15.3-44.8); MCH 30.2 pg (27.0-35.0); MCV 88.7 fL (80-100); Monocytes % 14.3 % (3.3-12.3); Neutrophils % 63.1 % (41.7-73.7); Nucleated Red Blood Cells % 0.1 % (0-0); Platelets 151 thou/uL (152-406); RBC Red Blood Cell Count 3.97 M/uL (4.33-5.43); Red Cell Distribution Width 15.6 % (12.1-15.2)
[2024-01-09 03:53] LABS: ALT/SGPT 16 U/L (16-61); AST/SGOT < 10 U/L (15-37); Albumin 2.6 g/dL (3.4-5.0); Albumin/Globulin Ratio 0.8 (1.1-1.8); Alkaline Phosphatase 44 U/L (45-117); Anion Gap 8.8 mEq/L (5.0-15.0); BUN Blood Urea Nitrogen 13 mg/dL (7-18); Bicarbonate 23 mEq/L (21-32); Bilirubin Total 0.9 mg/dL (0.2-1.0); Globulin 3.2 g/dL (2.3-3.5); Glomerular Filtration Rate 91 ml/min (=/>90); Glucose Level 97 mg/dL (74-106); Potassium 2.8 mEq/L (3.5-5.1); Protein, Total 5.8 g/dL (6.4-8.2); Sodium Level 137 mEq/L (136-145)
[2024-01-09] MEDS: KCL 20 MEQ/100 mL IVPB 20 MEQ/100 ML BAG IV SCH (08:18)
[2024-01-09] MEDS: FINASTERIDE 5 MG TAB PO SCH (08:19)
[2024-01-09] MEDS: TAMSULOSIN 0.4 MG SR CAP PO SCH (08:19)
[2024-01-09] MEDS: PARoxetine HCL 10 MG TAB PO SCH (08:19)
[2024-01-09] MEDS: MONTELUKAST 10 MG TAB PO SCH (08:19)
[2024-01-09] MEDS: Levofloxacin 750mg IV 750 MG/150 ML BAG IV SCH (10:19)
[2024-01-09 10:53] LABS: CDIFF INTERNAL NEG CONTROL White Background (WHITE BKGD); STOOL CONSISTENCY Liquid/Semi-Solid
[2024-01-09 10:55] LABS: C.diff Antigen/Toxin Ag pos : Tox pos (NEG : NEG)
--- NOTE | 2024-01-10 13:56 | EKG ---
Test Date: 2024-01-08 Test Time: 07:35:29 Hitcher: FRANCESCA MEASUREMENT RESULTS: Intervals: Rate: 92 MS: 196 QRSD: 94 QT: 370 QTc: 457 [place]: P: 67 MS: 196 QRS: -70 T: 69 INTERPRETIVE STATEMENTS: Normal sinus rhythm Left axis deviation Inferior infarct, age undetermined Possible Anterior infarct, age undetermined Abnormal ECG Compared to ECG 11/16/2023 14:12:12 No significant changes Electronically Signed On 01-10-24 13:50:55 CDT by Demetrio Aguilar
[2024-01-10 16:50] VITALS: BP 166/87; TEMP 97.2
--- NOTE | 2024-01-10 20:53 | PN ---
Date of Progress Note: 01/09/2024 Subjective: The patient was seen in the morning for followup. He was lying in bed, not in distress. Denies any complaints. Objective: Vital Signs: Reviewed. HEENT: Unremarkable. Lungs: Clear to auscultation. Heart: Sounds normal. Abdomen: Soft. Bowel sounds normal. No guarding, rigidity, tenderness, or distention. Extremities: No leg edema. Laboratory Data: Urine culture is pending. Blood culture negative. WBC 13.8, hemoglobin 13, platelets 267. Impression: 1. Urinary tract infection. 2. Clostridium difficile colitis. 3. Hypertension. 4. COPD. 5. Sepsis. Plan: We will go ahead and continue current antibiotic which is Levaquin. Continue oral vancomycin. The patient has benign prostatic hypertrophy with urinary retention history and has this indwelling Bentley catheter for last year and a half. Over 6 months ago, his urologist had removed Bentley catheter and about 4 days after it was removed, he actually ended up having it replaced because of urinary retention. Since that time, we have not tried to remove his catheter. He has not been back to his urologist and today I did talk to him and explained to him that while in the hospital, this will be his best chance to see if he can go ahead and try to take the catheter out and if he is able to void on his own, hopefully we can avoid replacement of catheter to reduce future risk of recurrent urinary tract infection and he is willing to try it. So, nurse was advised to remove catheter. Monitor him for urinary retention. If he has more than 300 cc of retained urine in the bladder as per bladder scan, then to reinsert Bentley catheter, otherwise not to reinsert catheter. I will see him tomorrow for followup. INDRA/MODL Voice ID: [id number] Report ID: [id number] [place]
--- NOTE | 2024-01-11 06:38 | DS ---
Date of Discharge: 01/10/2024 Brief History: The patient was seen this morning for followup, lying in bed, not in distress. His stool is well formed now and it is soft stool. No liquid or watery stool. He is able to urinate on his own since Bentley catheter was removed. Physical Examination: HEENT: Unremarkable. Lungs: Clear to auscultation. Heart: Sounds normal. Abdomen: Soft. Bowel sounds normal. No guarding, rigidity, tenderness, distention. Extremities: No leg edema. Discharge Medications And Instructions: 1. Continue all prior home medications. 2. Take Levaquin 500 mg p.o. daily for 10 days. The patient was instructed to return to emergency room if he is not able to urinate for replacement of Bentley catheter. Hospital Course: This is a 78-year-old pleasant male patient, came into emergency room with fever, chills, generalized weakness, and was admitted to the hospital with urinary tract infection. The patient has indwelling Bentley catheter since almost May 2022 and was under care of urologist in [place], Dr. Verduzco, and almost 6 months ago or so when the patient saw him for the last time, Dr. Verduzco removed his Bentley catheter and sent him home and after 4 days, he ended up going back to emergency room because of urinary retention and ended up having catheter placed back and so he is getting this Bentley catheter for almost year and a half. He has had some urinary tract infection issues related to this Bentley catheter and he was admitted to the hospital with similar problem this time. He is also having good recurrent Clostridium difficile colitis as of last few months and has been on vancomycin for that. The patient is not compliant with his office visits and lately in last several months, so he has almost never returned to office for followup after hospital discharge as per instruction except just 1 time. While he was here in the hospital, he was treated with IV fluid and IV antibiotic which was Levaquin. Urine culture and blood culture were sent. Blood culture came back negative. Urine culture result came back today showing Pseudomonas and it is sensitive to Levaquin that he has been getting. Hemodynamically, he is stable. We decided to try to see if we can remove the Bentley catheter and keep it out and this catheter was removed now over 24 hours ago prior to discharge and he has been able to urinate without any problem. Today, I did ask nurse to check his postvoid residual. This patient also informed me that while he was in [place] last time, this was few months ago after he urinated and after the bladder scan, this still ended up getting very large amount of urine with a straight cath, so we wanted to make sure that is not happening, so today we allowed the patient to urinate. He approximately urinated 200 cc of urine and after that, bladder scan had shown approximately 160 cc of urine as a postvoid residual and straight cath was done which also got approximately same amount of urine, so at this point, there is no need for replacement of Betnley catheter and the patient was instructed to come back to emergency room in case if he ends up having trouble where he is not able to urinate requiring replacement of Bentley catheter. Vancomycin was given 125 mg 4 times a day because of his recurrent Clostridium difficile colitis problem. He has shown some interest in fecal transplant and he was advised to follow up with Dr. Martin on outpatient basis. Final Diagnoses: 1. Sepsis. 2. Urinary tract infection. 3. Clostridium difficile colitis, recurrent. 4. Benign prostatic hypertrophy with lower urinary tract symptoms, with indwelling Bentley catheter. 5. Hypertension. 6. Type 2 diabetes mellitus. 7. Hyperlipidemia. 8. Chronic obstructive pulmonary disease. 9. Diverticulosis. 10. Anxiety. 11. Osteoarthritis, multiple sites. Discharge Medications And Instructions: 1. Continue all prior home medication. 2. Vancomycin 125 mg 3 times a day and vancomycin prescription was sent for 90 capsules. 3. Levaquin 500 mg p.o. daily for 10 days. 4. Follow up at my office next week. INDRA/JUDY Voice ID: [id number] Report ID: [id number] [place]
== END 2024-01-10 19:30 | disposition home or self-care (01) | DRG 698 ==
LOC: ER 06:56 → ERHOLD 09:05 → 2ND 10:07
PROVIDERS: ADMIT Internal Medicine; ATTEND Internal Medicine
PROC: 0TPB70Z Removal of Drainage Device from Bladder, Via Natural or Artificial Opening (ICD-10-PCS; principal; 2024-01-08)
DX: T83.511A Infection and inflammatory reaction due to indwelling urethral catheter, initial encounter (principal); A41.9 Sepsis, unspecified organism; A04.72 Enterocolitis due to Clostridium difficile, not specified as recurrent; N39.0 Urinary tract infection, site not specified; E11.9 Type 2 diabetes mellitus without complications; Z79.4 Long term (current) use of insulin; J44.9 Chronic obstructive pulmonary disease, unspecified; I10 Essential (primary) hypertension; N40.0 Benign prostatic hyperplasia without lower urinary tract symptoms; K57.90 Diverticulosis of intestine, part unspecified, without perforation or abscess without bleeding; M19.90 Unspecified osteoarthritis, unspecified site; F41.9 Anxiety disorder, unspecified; E78.5 Hyperlipidemia, unspecified; B96.5 Pseudomonas (aeruginosa) (mallei) (pseudomallei) as the cause of diseases classified elsewhere; B95.2 Enterococcus as the cause of diseases classified elsewhere
CPT/HCPCS: 36415; 71045; 80053; 81001; 82947; 83605; 84132; 85025; 85610; 85730; 87040; 87077; 87086; 87088; 87186; 87324; 93005; 94640; 96361; 96365; 96375; 99285; J0692; J1650; J3480; J7030; J7613; J7644

== ENCOUNTER 2024-01-17 14:02 | Emergency (ER) | payer OTHER ==
--- NOTE | 2024-01-17 14:47 | RAD REPORT ---
EXAM DESCRIPTION: CT - Stone Protocol - 01/17/2024 2:34 pm CLINICAL HISTORY: Flank pain. Abd pain;Pain COMPARISON: Abdomen Pelvis W Contrast dated 11/16/2023; Abdomen Pelvis W Contrast dated 09/20/2023 TECHNIQUE: Axial images were obtained without oral or IV contrast. Lack of contrast limits solid org an and vascular assessment. The [id number] spans the entirety of the system partially obscuring uppermost abdomen and lung bases. Coronal reformatted images were obtained and reviewed. All CT scans are performed using dose optimization technique as appropriate and may include automated exposure control or mA/KV adjustment according to patient size. FINDINGS: The inferior lung contreras are clear. Imaged portions of the liver and spleen show no suspicious findings on non-contrast imaging. The panc reas and adrenal glands are normal. No pathologic lymphadenopathy in the abdomen or pelvis. No urinary tract stones or obstructive uropathy. No bowel obstruction, free air, free fluid or abscess. Normal appendix noted.Mild sigmoid diverticulo sis coli without diverticulitis. Right total hip arthroplasty. Mild lumbosacral degenerative changes. IMPRESSION: No urinary tract stones or obstructive uropathy.
[2024-01-17 15:42] LABS: Absolute Basophils 0.1 K/uL (0-0.5); Absolute Eosinophils 0.3 K/uL (0-0.5); Absolute Lymphocytes (CBC) 1.4 K/uL (0.7-4.9); Absolute Monocytes 0.6 K/uL (0.1-1.3); Absolute Neutrophil 7.3 K/uL (1.8-8.0); Basophils % 1.5 % (0-1.3); Eosinophils % 2.6 % (0-4.4); Hemoglobin 13.8 g/dL (13.6-17.9); Lymphocytes % 14.3 % (15.3-44.8); MCH 29.9 pg (27.0-35.0); MCHC 33.6 g/dL (32.0-36.0); MCV 88.9 fL (80-100); MPV 7.1 fL (7.6-11.3); Monocytes % 5.9 % (3.3-12.3); Neutrophils % 75.7 % (41.7-73.7); Nucleated Red Blood Cells % 0.2 % (0-0); Platelets 274 thou/uL (152-406); RBC Red Blood Cell Count 4.61 M/uL (4.33-5.43); Red Cell Distribution Width 15.4 % (12.1-15.2)
[2024-01-17] MEDS ORDERED: NA CHLORIDE 0.9% 500 ML ONE (15:44)
--- NOTE | 2024-01-17 16:31 | EDPHYS ---
Physician Documentation [facility] Name: Shawn Gant Age: 78 yrs Sex: Male : 1945 Arrival Date: 01/17/2024 Time: 14:02 Bed 25 Private MD: ED Physician Enoc Cadena HPI: 01/16 16:26 This 78 yrs old Male presents to ER via Wheelchair with complaints of Problem marcial With Urinary Catheter. 16:26 The patient presents with a Do catheter problem, is leaking urine, possible marcial laceration. Onset: The symptoms/episode began/occurred 2 day(s) ago. Modifying factors: The symptoms are alleviated by nothing, the symptoms are aggravated by nothing. Associated signs and symptoms: The patient has no apparent associated signs or symptoms. Severity of symptoms: At their worst the symptoms were mild, in the emergency department the symptoms are unchanged. The patient has not experienced similar symptoms in the past. Historical: - Allergies: 14:52 Polio Virus Vaccines; db - PMHx: 14:52 borderline DM; COPD; Hypertension; History of urinary tract infection; db - PSHx: 14:52 multiple ortho; db - Immunization history:: Adult Immunizations unknown. - Infectious Disease History:: Denies. - Social history:: Smoking status: Patient/guardian denies using tobacco, the patient reports quitting approximately 10 years ago. ROS: 16:28 Constitutional: Negative for fever, chills, and weight loss, Eyes: Negative for injury, marcial pain, redness, and discharge, ENT: Negative for injury, pain, and discharge, Neck: Negative for injury, pain, and swelling, Cardiovascular: Negative for chest pain, palpitations, and edema, Respiratory: Negative for shortness of breath, cough, wheezing, and pleuritic chest pain, Abdomen/GI: Negative for abdominal pain, nausea, vomiting, diarrhea, and constipation, Back: Negative for injury and pain, MS/Extremity: Negative for injury and deformity, Skin: Negative for injury, rash, and discoloration, Neuro: Negative for headache, weakness, numbness, tingling, and seizure, Psych: Negative for depression, anxiety, suicide ideation, homicidal ideation, and hallucinations, Allergy/Immunology: Negative for hives, rash, and allergies, Endocrine: Negative for neck swelling, polydipsia, polyuria, polyphagia, and marked weight changes, 16:28 : Positive for urinary symptoms, difficulty urinating, hypospadias vs lac, Exam: 16:28 Constitutional: This is a well developed, well nourished patient who is awake, alert, marcial and in no acute distress. Head/Face: Normocephalic, atraumatic. Eyes: Pupils equal round and reactive to light, extra-ocular motions intact. Lids and lashes normal. Conjunctiva and sclera are non-icteric and not injected. Cornea within normal limits. Periorbital areas with no swelling, redness, or edema. ENT: Nares patent. No nasal discharge, no septal abnormalities noted. Tympanic membranes are normal and external auditory canals are clear. Oropharynx with no redness, swelling, or masses, exudates, or evidence of obstruction, uvula midline. Mucous membranes moist. Neck: Trachea midline, no thyromegaly or masses palpated, and no cervical lymphadenopathy. Supple, full range of motion without nuchal rigidity, or vertebral point tenderness. No Meningismus. Chest/axilla: Normal chest wall appearance and motion. Nontender with no deformity. No lesions are appreciated. Cardiovascular: Regular rate and rhythm with a normal S1 and S2. No gallops, murmurs, or rubs. Normal PMI, no JVD. No pulse deficits. Respiratory: Lungs have equal breath sounds bilaterally, clear to auscultation and percussion. No rales, rhonchi or wheezes noted. No increased work of breathing, no retractions or nasal flaring. Abdomen/GI: Soft, non-tender, with normal bowel sounds. No distension or tympany. No guarding or rebound. No evidence of tenderness throughout. Back: No spinal tenderness. No costovertebral tenderness. Full range of motion. Skin: Warm, dry with normal turgor. Normal color with no rashes, no lesions, and no evidence of cellulitis. MS/ Extremity: Pulses equal, no cyanosis. Neurovascular intact. Full, normal range of motion. Neuro: Awake and alert, GCS 15, oriented to person, place, time, and situation. Cranial nerves II-XII grossly intact. Motor strength 5/5 in all extremities. Sensory grossly intact. Cerebellar exam normal. Normal gait. Psych: Awake, alert, with orientation to person, place and time. Behavior, mood, and affect are within normal limits. 16:28 : CVA tenderness, is absent, Male external genitalia: normal, Bladder: is normal, Rectal exam: is not applicable, Sexual behavior: the patient is not sexually active, a do is noted, Vital Signs: 14:48 BP 136 / 79; Pulse 82; Resp 18; Temp 98.6; Pulse Ox 99% on R/A; Weight 83.46 kg; Height db 5 ft. 11 in. ; 14:48 Body Mass Index 25.66 (83.46 kg, 180.34 cm) db MDM: 14:18 Patient medically screened. marcial 16:29 Differential diagnosis: nonspecific abdominal pain, UTI, Do catheter problem, marcial prostatitis, urethritis. Data reviewed: vital signs, nurses notes, lab test result(s), radiologic studies, CT scan. Consideration of Admission/Observation Escalation of care including admission/observation considered. I considered the following discharge prescriptions or medication management in the emergency department Medications were administered in the Emergency Department. See MAR. Test considered but Not performed: X-ray: no kub. Care significantly affected by the following chronic conditions: Diabetes, Hypertension, Chronic Obstructive Pulmonary Disease, Obesity. 01/16 14:20 Order name: CBC with Diff; Complete Time: 16:25 [facility] 01/16 14:20 Order name: Comprehensive Metabolic Panel [facility] 01/16 14:20 Order name: CT Stone Protocol; Complete Time: 16:25 [facility] 01/16 15:40 Order name: Labs - recollect needed: blue and green top; Complete Time: 16:16 bc6 Administered Medications: 16:01 Drug: NS 0.9% IV 500 ml IV at bolus once Route: IV; Rate: bolus; Site: right iw antecubital; 17:00 Follow up: IV Status: Completed infusion iw 16:59 Drug: Mupirocin Topical Ointment 2 % 1 application Topical once Route: Topical; Site: iw affected area; Disposition Summary: 01/17/24 16:31 Discharge Ordered Notes: Location: Home marcial Problem: new marcial Symptoms: have improved marcial Condition: Stable marcial Diagnosis - Other mechanical complication of urinary (indwelling) catheter marcial - Leakage of urinary (indwelling) catheter marcial - Hypospadias, penile marcial Followup: marcial - With: Private Physician - When: 2 - 3 days - Reason: Recheck today's complaints, Continuance of care, Re-evaluation by your physician Followup: marcial - With: Joseph Gutierrez MD - When: 2 - 3 days - Reason: Recheck today's complaints, Re-evaluation by your physician Discharge Instructions: - Discharge Summary Sheet marcial - Indwelling Urinary Catheter Care, Adult marcial - Indwelling Urinary Catheter Care, Adult, [id number] marcial - Indwelling Urinary Catheter Insertion, Care After marcial Forms: - Medication Reconciliation Form marcial - Antibiotic Education marcial - Prescription Opioid Use marcial - Patient Portal Instructions [facility] - Leadership Thank You Letter [facility] Prescriptions: - Centany 2 % Topical ointment - apply 1 application TOPICAL route 3 times per day; 30 gram tube; Refills: 0, marcial Product Selection Permitted Signatures: Dispatcher [employer] EDEnoc Bennett MD MD cha Williams, Irene RN RN Courtney Gee RN RN [place] 6 Corrections: (The following items were deleted from the chart) 14:52 14:52 Social history: Smoking status: Patient denies any tobacco usage or history of. dbdb
--- NOTE | 2024-01-17 16:31 | ER ---
Nurse's Notes [facility] Name: Shawn Gant Age: 78 yrs Sex: Male : 1945 Arrival Date: 01/17/2024 Time: 14:02 Bed 25 Private MD: Diagnosis: Other mechanical complication of urinary (indwelling) catheter;Leakage of urinary (indwelling) catheter;Hypospadias, penile Presentation: 01/16 14:[address] db 14:48 Chief complaint: Patient states: PROBLEM WITH CATHETER. STATES PENIS IS SPLITTING AT db INSERTION SITE AND WOULD LIKE IT CHECKED OUT BY PHYSICIAN. Coronavirus screen: Client denies travel out of the [place] in the last 14 days. At this time, the client does not indicate any symptoms associated with coronavirus-19. Ebola Screen: Patient negative for fever greater than or equal to 101.5 degrees Fahrenheit, and additional compatible Ebola Virus Disease symptoms Patient denies exposure to infectious person. Patient denies travel to an Ebola-affected area in the 21 days before illness onset. No symptoms or risks identified at this time. Initial Sepsis Screen: Does the patient meet any 2 criteria? No. Patient's initial sepsis screen is negative. Does the patient have a suspected source of infection? No. Patient's initial sepsis screen is negative. Risk Assessment: Do you want to hurt yourself or someone else? Patient reports no desire to harm self or others. Onset of symptoms was January 17, 2024. 14:48 Method Of Arrival: Wheelchair db 14:48 Acuity: MARIO 3 db Triage Assessment: 14:52 General: Appears in no apparent distress. comfortable, Behavior is calm, cooperative. db Pain: Complains of pain in pelvis. 14:52 Neuro: Level of Consciousness is awake, alert, obeys commands, Oriented to person, db place, time, situation. : Gibson in place PENIS IS SPLITTING AT [place] INSERTION SITE. Historical: - Allergies: 14:52 Polio Virus Vaccines; db - PMHx: 14:52 borderline DM; COPD; Hypertension; History of urinary tract infection; db - PSHx: 14:52 multiple ortho; db - Immunization history:: Adult Immunizations unknown. - Infectious Disease History:: Denies. - Social history:: Smoking status: Patient/guardian denies using tobacco, the patient reports quitting approximately 10 years ago. Screenin:00 [facility] ED Fall Risk Assessment (Adult) History of falling in the last 3 months, iw including since admission Yes- single mechanical fall (1 pt) Confusion or Disorientation No (0 pts) Intoxicated or Sedated No (0 pts) Impaired Gait Yes (1 pt) Mobility Assist Device Used Yes (1 pt) Altered Elimination No (0 pt) Score/Fall Risk Level 3 or more points = High Risk Oriented to surroundings, Maintained a safe environment. Abuse screen: Denies threats or abuse. Denies injuries from another. Nutritional screening: No deficits noted. Tuberculosis screening: No symptoms or risk factors identified. Assessment: 16:00 General: Appears in no apparent distress. Behavior is calm, cooperative. Neuro: Level iw of Consciousness is awake, alert, obeys commands, Oriented to person, place, time, situation. Cardiovascular: Patient's skin is warm and dry. Respiratory: Respiratory effort is even, unlabored, Respiratory pattern is regular, symmetrical. : Gibson in place to gravity drainage Swelling noted at urinary meatus. Derm: Skin is intact. 16:59 Reassessment: Patient appears in no apparent distress at this time. Patient and/or iw family updated on plan of care and expected duration. Pain level reassessed. Patient is alert, oriented x 3, equal unlabored respirations, skin warm/dry/pink. Vital Signs: 14:48 BP 136 / 79; Pulse 82; Resp 18; Temp 98.6; Pulse Ox 99% on R/A; Weight 83.46 kg; Height db 5 ft. 11 in. ; 14:48 Body Mass Index 25.66 (83.46 kg, 180.34 cm) db ED Course: 14:04 Patient arrived in ED. ra3 14:18 Enoc Cadena MD is Attending Physician. marcial 14:31 CT Stone Protocol In Process Unspecified. EDMS 14:52 Triage completed. db 14:52 Arm band placed on. db 15:28 Initial lab(s) drawn, by me, sent to lab. Inserted saline lock: 20 gauge in right aw1 antecubital area, using aseptic technique. 15:28 PT-INR Sent. aw1 15:28 Comprehensive Metabolic Panel Sent. aw1 15:28 CBC with Diff Sent. aw1 15:42 Soo Galeas, FIONA is Primary Nurse. iw 16:30 Joseph Gutierrez MD is Referral Physician. [facility] 17:00 Patient has correct armband on for positive identification. iw 17:00 No provider procedures requiring assistance completed. IV discontinued, intact, iw bleeding controlled, No redness/swelling at site. Pressure dressing applied. Administered Medications: 16:01 Drug: NS 0.9% IV 500 ml IV at bolus once Route: IV; Rate: bolus; Site: right iw antecubital; 17:00 Follow up: IV Status: Completed infusion iw 16:59 Drug: Mupirocin Topical Ointment 2 % 1 application Topical once Route: Topical; Site: iw affected area; Medication: 17:01 VIS not applicable for this client. iw Outcome: 16:31 Discharge ordered by MD. [facility] 17:00 Discharged to home via wheelchair, with family, iw 17:00 Condition: good 17:00 Discharge instructions given to patient, Instructed on discharge instructions, follow up and referral plans. medication usage, Demonstrated understanding of instructions, follow-up care, medications, 17:01 Prescriptions given X 1, iw 17:01 Patient left the ED. Signatures: Dispatcher [employer] EDMS Enoc Cadena MD MD cha Williams, Irene, RN RN iw Courtney Perez, Yadi Interiano RN aw1 Ashia Das ra3 Corrections: (The following items were deleted from the chart) 14:52 14:52 Social history: Smoking status: Patient denies any tobacco usage or history of. dbdb
[2024-01-17 16:41] LABS: Albumin 3.3 g/dL (3.4-5.0); Albumin/Globulin Ratio 0.9 (1.1-1.8); Anion Gap 7.4 mEq/L (5.0-15.0); Bilirubin Total 0.5 mg/dL (0.2-1.0); Globulin 3.7 g/dL (2.3-3.5)
[2024-01-17] MEDS ORDERED: MUPIROCIN 2% OINT 22GM TUBE TOP ONE (16:50)
[2024-01-17 17:09] LABS: Potassium 3.4 mEq/L (3.5-5.1)
[2024-01-17 18:30] VITALS: BP 136/79; TEMP 98.6; O2SAT 99
== END 2024-01-17 17:01 | disposition home or self-care (01) ==
LOC: ER 14:02
DX: T83.038A Leakage of other urinary catheter, initial encounter (principal); Q54.1 Hypospadias, penile
CPT/HCPCS: 85025; 36415; 80053; 76377; 74176; 96360; 99284; J7040

== ENCOUNTER 2024-03-11 09:03 | Emergency (ER) | payer OTHER ==
--- NOTE | 2024-03-11 10:00 | ER ---
Nurse's Notes [facility] Name: Shawn Gant Age: 78 yrs Sex: Male : 1945 Arrival Date: 03/11/2024 Time: 09:03 Bed 11 Private MD: Diagnosis: Urinary catheter leak Presentation: 03/11 09:45 Chief complaint: Patient states: he is feeling like he needs a new urinary catheter bag ap3 due to leaking. patient reports having the catheter approx one month. Coronavirus screen: At this time, the client does not indicate any symptoms associated with coronavirus-19. Ebola Screen: No symptoms or risks identified at this time. Initial Sepsis Screen: Does the patient meet any 2 criteria? No. Patient's initial sepsis screen is negative. Does the patient have a suspected source of infection? No. Patient's initial sepsis screen is negative. Risk Assessment: Do you want to hurt yourself or someone else? Patient reports no desire to harm self or others. Onset of symptoms is unknown. 09:45 Method Of Arrival: Wheelchair ap3 09:45 Acuity: MARIO 4 ap3 Triage Assessment: 09:47 General: Appears in no apparent distress. Behavior is calm, cooperative, appropriate ap3 for age. Pain: Denies pain. Neuro: Level of Consciousness is awake, alert, obeys commands, Oriented to person, place, time, situation. Cardiovascular: Patient's skin is warm and dry. Respiratory: Airway is patent Respiratory effort is even, unlabored, Respiratory pattern is regular, symmetrical. : Bentley in place. Historical: - Allergies: 09:47 Polio Virus Vaccines; ap3 - PMHx: 09:47 borderline DM; COPD; History of urinary tract infection; Hypertension; ap3 - PSHx: 09:47 multiple ortho; ap3 - Immunization history:: Client reports receiving the 2nd dose of the Covid vaccine. - Infectious Disease History:: CDIFF, . - Social history:: Smoking status: Patient denies any tobacco usage or history of. Screenin:49 [facility] ED Fall Risk Assessment (Adult) History of falling in the last 3 months, ap3 including since admission Yes- fall prone (multiple falls) (3 pts) Confusion or Disorientation No (0 pts) Intoxicated or Sedated No (0 pts) Impaired Gait Yes (1 pt) Mobility Assist Device Used Yes (1 pt) Altered Elimination Yes (1 pt) Score/Fall Risk Level 3 or more points = High Risk Oriented to surroundings, Maintained a safe environment, Educated pt \T\ family on fall prevention, incl call for assistance when getting out of bed, Assessed \T\ reinforced patient's understanding of fall precautions, Provided non-skid footwear, Hourly rounding (assess needs \T\ fall precautionary measures) done, Used ambulatory aids as needed (educated on \T\ assisted with), Used gait belt as appropriate Implemented a Fall Risk Plan of Care, Apply high fall risk patient identification: yellow non skid footwear/ fall signage, Placed fall mat w/ non beveled edge next to bed, Activated bed/chair alarm, Remained w/in arm's length of patient and in sight while toileting, Offered frequent toileting (1:1 observation), Remained with patient while ambulating, Utilized family, sitter, or virtual claim clinician as indicated. Abuse screen: Denies threats or abuse. Nutritional screening: No deficits noted. Tuberculosis screening: No symptoms or risk factors identified. Assessment: 10:16 Reassessment: Pt reports attempted to go to PCP to have leaking urine collection bag jl7 replaced and PCP instructed him to come to ER. Vital Signs: 09:45 BP 110 / 74; Pulse 78; Resp 17; Temp 98.4; Pulse Ox 98% ; Weight 83.91 kg; Height 5 ft. ap3 11 in. ; 09:45 Body Mass Index 25.80 (83.91 kg, 180.34 cm) ap3 ED Course: 09:07 Patient arrived in ED. mg5 09:08 Michaelle Rehman MD is Attending Physician. sp3 09:47 Triage completed. ap3 09:50 Arm band placed on left wrist. ap3 10:15 No provider procedures requiring assistance completed. Bentley catheter remains in place, jl7 Bentley bag replaced. Patient did not have IV access during this emergency room visit. 10:16 Patient has correct armband on for positive identification. Provided Education on: jl7 procedure for replacement bag.. Administered Medications: No medications were administered Medication: 10:16 VIS not applicable for this client. jl7 Outcome: 10:00 Discharge ordered by . sp3 10:18 Discharged to home via wheelchair, jl7 10:18 Condition: good 10:18 Discharge instructions given to patient, family, Instructed on discharge instructions, follow up and referral plans. Demonstrated understanding of instructions, follow-up care, 10:18 Patient left the ED. jl7 Signatures: Gunner Muñiz RN RN jl7 Joan Laughlin RN RN ap3 Michaelle Rehman MD MD sp3 Cinthya Borja 5
--- NOTE | 2024-03-11 10:00 | EDPHYS ---
Physician Documentation [facility] Name: Shawn Gant Age: 78 yrs Sex: Male : 1945 Arrival Date: 03/11/2024 Time: 09:03 Bed 11 Private MD: ED Physician Michaelle Rehman HPI: 03/11 09:58 This 78 yrs old Male presents to ER via Wheelchair with complaints of Problem With sp3 Urinary Catheter. 09:58 78-year-old male with PMH above and multiple episodes of urinary retention now sp3 requiring indwelling Do presents to the ED for leaking bag and Do catheter connection problem. Patient has had prior episodes of similar challenges with his Do bag well-documented in the medical record. I reviewed all of those visits. Today he is seeking a new collecting bag versus a new catheter depending on what we think he needs. He denies any other issues, continued retention, bleeding, fever, pain, or any other aspects of review of systems at this time.. Historical: - Allergies: 09:47 Polio Virus Vaccines; ap3 - PMHx: 09:47 borderline DM; COPD; History of urinary tract infection; Hypertension; ap3 - PSHx: 09:47 multiple ortho; ap3 - Immunization history:: Client reports receiving the 2nd dose of the Covid vaccine. - Infectious Disease History:: CDIFF, . - Social history:: Smoking status: Patient denies any tobacco usage or history of. ROS: 09:59 Constitutional: Negative for fever, chills, and weight loss, Eyes: Negative for injury, sp3 pain, redness, and discharge, Neck: Negative for injury, pain, and swelling, Cardiovascular: Negative for chest pain, palpitations, and edema, Respiratory: Negative for shortness of breath, cough, wheezing, and pleuritic chest pain, Abdomen/GI: Negative for abdominal pain, nausea, vomiting, diarrhea, and constipation, Back: Negative for injury and pain, MS/Extremity: Negative for injury and deformity, Skin: Negative for injury, rash, and discoloration, Neuro: Negative for headache, weakness, numbness, tingling, and seizure, 09:59 All other systems are negative, Exam: 09:59 Constitutional: This is a well developed, well nourished patient who is awake, alert, sp3 and in no acute distress. Head/Face: Normocephalic, atraumatic. Eyes: Pupils equal round and reactive to light, extra-ocular motions intact. Lids and lashes normal. Conjunctiva and sclera are non-icteric and not injected. Cornea within normal limits. Periorbital areas with no swelling, redness, or edema. Respiratory: Lungs have equal breath sounds bilaterally, clear to auscultation and percussion. No rales, rhonchi or wheezes noted. No increased work of breathing, no retractions or nasal flaring. Abdomen/GI: Soft, non-tender, with normal bowel sounds. No distension or tympany. No guarding or rebound. No evidence of tenderness throughout. Back: No spinal tenderness. No costovertebral tenderness. Full range of motion. Male : Normal genitalia with no discharge or lesions. Vital Signs: 09:45 BP 110 / 74; Pulse 78; Resp 17; Temp 98.4; Pulse Ox 98% ; Weight 83.91 kg; Height 5 ft. ap3 11 in. ; 09:45 Body Mass Index 25.80 (83.91 kg, 180.34 cm) ap3 MDM: 09:10 Patient medically screened. sp3 09:59 Data reviewed: vital signs, nurses notes. ED course: 78-year-old male with urinary sp3 catheter leaking issue. We will change the bag and if that does not work replace the entire catheter. Patient will be safe to discharge at that time. UA not indicated. Further follow-up with Dr. Alarcon and/or his urologist.. 03/11 09:58 Order name: [facility] [place]. Order: Replace do bag; Complete Time: 10:15 sp3 Administered Medications: No medications were administered Disposition Summary: 03/11/24 10:00 Discharge Ordered Notes: Location: Home sp3 Condition: Stable sp3 Diagnosis - Urinary catheter leak sp3 Followup: sp3 - With: Private Physician - When: Upon discharge from the Emergency Department - Reason: Recheck today's complaints, Continuance of care Discharge Instructions: - Discharge Summary Sheet sp3 - Indwelling Urinary Catheter Care, Adult sp3 Forms: - Medication Reconciliation Form sp3 - Antibiotic Education sp3 - Prescription Opioid Use sp3 - Patient Portal Instructions sp3 - Leadership Thank You Letter sp3 Signatures: Joan Laughlin RN RN ap3 Rehman, Setul, MD MD sp3
[2024-03-11 10:22] VITALS: BP 110/74; TEMP 98.4; O2SAT 98
== END 2024-03-11 10:18 | disposition home or self-care (01) ==
LOC: ER 09:03
PROC: 0T2BX0Z Change Drainage Device in Bladder, External Approach (ICD-10-PCS; principal; 2024-03-11)
DX: T83.038A Leakage of other urinary catheter, initial encounter (principal)
CPT/HCPCS: 99282

== ENCOUNTER 2024-04-15 17:35 | Inpatient (IN) | payer OTHER ==
[2024-04-15] MEDS ORDERED: IPRATROPIUM BROM 0.5MG/2.5ML ONE (18:54)
[2024-04-15] MEDS ORDERED: METHYLPREDNISOLONE 125 MG INJ ONE (18:54)
[2024-04-15] MEDS ORDERED: LEVALBUTEROL 1.25 MG/3 ML NEB ONE (18:55)
[2024-04-15] MEDS ORDERED: MAGNESIUM SULFATE 1 gm IVPB 1 GM/100 ML BAG IV ONE (18:55)
[2024-04-15] MEDS ORDERED: NA CHLORIDE 0.9% 500 ML ONE ×2 (18:55→19:48)
[2024-04-15 18:57] LABS: Absolute Eosinophils 0.2 K/uL (0-0.5); Absolute Lymphocytes (CBC) 1.4 K/uL (0.7-4.9); Absolute Monocytes 0.6 K/uL (0.1-1.3); Absolute Neutrophil 5.8 K/uL (1.8-8.0); Basophils % 0.5 % (0-1.3); Eosinophils % 2.7 % (0-4.4); Hematocrit 43.2 % (39.6-49.0); Hemoglobin 14.4 g/dL (13.6-17.9); Lymphocytes % 17.9 % (15.3-44.8); MCH 30.6 pg (27.0-35.0); MCHC 33.4 g/dL (32.0-36.0); MCV 91.6 fL (80-100); MPV 6.8 fL (7.6-11.3); Monocytes % 6.9 % (3.3-12.3); Platelets 231 thou/uL (152-406); RBC Red Blood Cell Count 4.71 M/uL (4.33-5.43); Red Cell Distribution Width 14.9 % (12.1-15.2)
[2024-04-15 19:02] LABS: PTT, Activated Partial Thromb 33.2 SECONDS (24.3-36.9); Protime INR 0.98
[2024-04-15 19:10] LABS: Anion Gap 11.6 mEq/L (5.0-15.0); Bilirubin Total 0.7 mg/dL (0.2-1.0); Potassium 3.6 mEq/L (3.5-5.1)
--- NOTE | 2024-04-15 19:22 | RAD REPORT ---
Procedure: Chest Single View History: Chest pain Comparison: January 2024 The lungs appear clear of acute infiltrate. No significant pleural effusion noted. The heart is normal size. Old left rib fractures IMPRESSION: No acute abnormality is displayed.
--- NOTE | 2024-04-15 19:46 | ER ---
Nurse's Notes [facility] Name: Shawn Gant Age: 78 yrs Sex: Male : 1945 Arrival Date: 04/15/2024 Time: 17:35 Bed 6 Private MD: Diagnosis: COPD/ Chronic obstructive pulmonary disease with (acute) exacerbation Presentation: 04/15 17:42 Chief complaint: Patient states: I got very SOB the last couple of days, if I try to iw move I get out of breath. Coronavirus screen: At this time, the client does not indicate any symptoms associated with coronavirus-19. Ebola Screen: No symptoms or risks identified at this time. Initial Sepsis Screen: Does the patient meet any 2 criteria? No. Patient's initial sepsis screen is negative. Does the patient have a suspected source of infection?. Risk Assessment: Do you want to hurt yourself or someone else? Patient reports no desire to harm self or others. Onset of symptoms was April 13, 2024. 17:42 Method Of Arrival: Wheelchair iw 17:42 Acuity: MARIO 3 iw Historical: - Allergies: 17:43 Polio Virus Vaccines; iw - PMHx: 17:43 borderline DM; History of urinary tract infection; Hypertension; COPD; iw - PSHx: 17:43 multiple ortho; iw - Immunization history:: Adult Immunizations not up to date. - Infectious Disease History:: Denies. - Social history:: Smoking status: Patient/guardian denies using tobacco, the patient reports quitting approximately 10 years ago. - Family history:: not pertinent. - Hospitalizations: : No recent hospitalization is reported. Screenin:07 [facility] ED Fall Risk Assessment (Adult) History of falling in the last 3 months, db including since admission Yes- single mechanical fall (1 pt) Confusion or Disorientation No (0 pts) Intoxicated or Sedated No (0 pts) Impaired Gait No (0 pts) Mobility Assist Device Used No (0 pt) Altered Elimination Yes (1 pt) Score/Fall Risk Level 0 - 2 = Low Risk Oriented to surroundings, Maintained a safe environment. Abuse screen: Denies threats or abuse. Denies injuries from another. Nutritional screening: No deficits noted. Tuberculosis screening: No symptoms or risk factors identified. Assessment: 18:52 Reassessment: Patient appears in no apparent distress at this time. Patient and/or db family updated on plan of care and expected duration. Pain level reassessed. Patient is alert, oriented x 3, equal unlabored respirations, skin warm/dry/pink. General: Appears in no apparent distress. comfortable, Behavior is calm, cooperative. 19:13 Reassessment: Patient appears in no apparent distress at this time. Patient and/or bm8 family updated on plan of care and expected duration. Pain level reassessed. Patient is alert, oriented x 3, equal unlabored respirations, skin warm/dry/pink. Patient states feeling better. Patient states symptoms have improved. Pain: Denies pain. Neuro: No deficits noted. Level of Consciousness is awake, alert, obeys commands, Oriented to person, place, time, situation, Appropriate for age. Cardiovascular: Denies chest pain, Heart tones S1 S2 present Capillary refill < 3 seconds in bilateral fingers. Respiratory: Airway is patent Trachea midline Respiratory effort is even, unlabored, Respiratory pattern is regular, symmetrical, Breath sounds with crackles in left upper lobe, left lower lobe, left posterior lower lobe and right posterior lower lobe. GI: No deficits noted. : No signs and/or symptoms were reported regarding the genitourinary system. EENT: No signs and/or symptoms were reported regarding the EENT system. Derm: No signs and/or symptoms reported regarding the dermatologic system. Musculoskeletal: No signs and/or symptoms reported regarding the musculoskeletal system. 22:22 Reassessment: Patient appears in no apparent distress at this time. No changes from lg3 previously documented assessment. Patient and/or family updated on plan of care and expected duration. Pain level reassessed. Patient is alert, oriented x 3, equal unlabored respirations, skin warm/dry/pink. Vital Signs: 17:42 BP 132 / 89; Pulse 107; Resp 19; Temp 97.8(TE); Pulse Ox 97% on R/A; Weight 83.91 kg; iw Height 5 ft. 10 in. ; 18:30 BP 130 / 87; Pulse 88; Resp 18; Pulse Ox 95% on Nebulizer Mask; db 19:13 BP 130 / 87; Pulse 90; Resp 20; Temp 97.8; Pulse Ox 100% on Nebulizer Mask; Pain 0/10; bm8 22:23 BP 124 / 81; Pulse 81; Resp 19 S; Pulse Ox 99% on R/A; lg3 17:42 Body Mass Index 26.54 (83.91 kg, 177.8 cm) iw 19:13 Pain Scale: Adult bm8 [place] Coma Score: 19:13 Eye Response: spontaneous(4). Motor Response: obeys commands(6). Verbal Response: bm8 oriented(5). Total: 15. ED Course: 17:39 Patient arrived in ED. mg5 17:39 Wes Hubbard MD is Attending Physician. rn 17:39 Lorri Head PA-C is PHCP. sb4 17:39 Attending Physician role handed off by Wes Hubbard MD sb4 17:39 Praveen Calderón DO is Attending Physician. sb4 17:39 Attending Physician role handed off by Praveen Calderón DO rn 17:39 Wes Hubbard MD is Attending Physician. rn 17:43 Triage completed. iw 17:44 Arm band placed on. iw 18:18 Courtney Perez, RN is Primary Nurse. db 18:27 First set of blood cultures drawn. db 18:37 Initial lab(s) drawn, by me, sent to lab. Second set of blood cultures drawn by me. db Inserted saline lock: 20 gauge in right antecubital area, using aseptic technique. Blood collected. Flushed with 10 mL NS. 18:52 Patient has correct armband on for positive identification. Bed in low position. Call db light in reach. Side rails up X 1. Client placed on continuous cardiac and pulse oximetry monitoring. NIBP monitoring applied. digital design engineer on. Pulse ox on. NIBP on. Warm blanket given. 19:13 No provider procedures requiring assistance completed. IV is patent, with fluids bm8 infusing freely, with good blood return, fluids infusing at prescribed rate. 19:14 Chest Single View XRAY In Process Unspecified. EDMS 19:45 Ken Alarcon MD is Hospitalizing Provider. rn 22:25 Patient admitted, IV remains in place. lg3 Administered Medications: 18:55 Drug: Levalbuterol Inhalation 1.25 mg Inhalation once Route: Inhalation; db 18:55 Drug: Ipratropium Inhalation Aerosol 0.5 mg Inhalation once Route: Inhalation; db 18:55 Drug: Magnesium Sulfate IVPB 1 grams IVPB once over 1 hrs Route: IVPB; Infused Over: 1 db hrs; Site: right antecubital; 22:24 Follow up: Response: No adverse reaction; IV Status: Completed infusion; IV Intake: 11dtmo6 18:55 Drug: NS 0.9% IV 500 ml IV at bolus once Route: IV; Rate: bolus; Site: right db antecubital; 22:25 Follow up: IV Status: Completed infusion; IV Intake: 500ml lg3 18:56 Drug: MethylPrednisoLONE IVP 125 mg IVP once Route: IVP; Site: right antecubital; db 22:24 Follow up: Response: No adverse reaction lg3 20:30 Drug: NS 0.9% IV (30 ml/kg) 30 ml/kg IV at bolus once; Sepsis Protocol; subtract fluids lg3 already given Route: IV; Rate: bolus; Site: right antecubital; 22:25 Follow up: IV Status: Completed infusion; IV Intake: 2000ml lg3 20:30 Drug: levofloxacin IVPB 750 mg 150 ml IVPB once over 90 mins Volume: 150 ml; Route: lg3 IVPB; Infused Over: 90 mins; Site: right antecubital; 22:23 Follow up: Response: No adverse reaction; IV Status: Completed infusion; IV Intake: lg3 150ml Medication: 19:13 VIS not applicable for this client. bm8 Intake: 22:23 IV: 150ml; Total: 150ml. lg3 22:24 IV: 50ml; Total: 200ml. lg3 22:25 IV: 500ml; Total: 700ml. lg3 22:25 IV: 2000ml; Total: 2700ml. lg3 Outcome: 19:46 Decision to Hospitalize by Provider. rn 22:25 Admitted to Med/surg accompanied by nurse, via wheelchair, room 404, lg3 22:25 Condition: stable 22:25 Instructed on the need for admit, Demonstrated understanding of instructions, 22:25 Patient left the ED. lg3 Signatures: Dispatcher [employer] EDSoo Mattson, RN Wes Zamarripa MD MD rn Able, Lacie, RN RN lg3 Courtney Perez RN RN db Brown, Sophia PA-C PA-C Cinthya Bridges mg5 Luis Eduardo Church RN FIONA bm8
--- NOTE | 2024-04-15 19:46 | EDPHYS ---
Physician Documentation [facility] Name: Shawn Gant Age: 78 yrs Sex: Male : 1945 Arrival Date: 04/15/2024 Time: 17:35 Bed 6 Private MD: ED Physician Wes Hubbard HPI: 04/15 18:29 This 78 yrs old Male presents to ER via Wheelchair with complaints of COPD Exacerbation.rn 18:29 The patient has shortness of breath with light activity. Onset: The symptoms/episode rn began/occurred 2 day(s) ago. Duration: The symptoms are intermittent. The patient's shortness of breath is aggravated by exertion, light activity. Severity of symptoms: At their worst the symptoms were moderate in the emergency department the symptoms have improved. The patient has experienced similar episodes in the past. Patient reports increased shortness of breath for the last 2 days. Does not feel feverish or like as pneumonia, thinks something is triggering his COPD. Reports improved after inhaler but still having trouble with exertion. No chest pain. No abdominal pain. No acute complaints regarding urinary system.. Historical: - Allergies: 17:43 Polio Virus Vaccines; iw - PMHx: 17:43 borderline DM; History of urinary tract infection; Hypertension; COPD; iw - PSHx: 17:43 multiple ortho; iw - Immunization history:: Adult Immunizations not up to date. - Infectious Disease History:: Denies. - Social history:: Smoking status: Patient/guardian denies using tobacco, the patient reports quitting approximately 10 years ago. - Family history:: not pertinent. - Hospitalizations: : No recent hospitalization is reported. ROS: 18:29 Constitutional: Negative for fever, chills, and weight loss, Eyes: Negative for injury, rn pain, redness, and discharge, Neck: Negative for injury, pain, and swelling, Cardiovascular: Negative for chest pain, palpitations, and edema, Respiratory: Positive for cough and shortness of breath Abdomen/GI: Negative for abdominal pain, nausea, vomiting, diarrhea, and constipation, MS/Extremity: Negative for injury and deformity, Skin: Negative for injury, rash, and discoloration, Neuro: Positive for generalized weakness Exam: 18:29 Constitutional: This is a well developed, well nourished patient who is awake, alert, rn and in no acute distress. Cardiovascular: Tachycardic, regular. No pulse deficits. Respiratory: Positive for shortness of breath and cough Male : Bentley catheter in place and draining Neuro: Awake and alert, GCS 15 18:43 ECG was reviewed by the Attending Physician. rn Vital Signs: 17:42 BP 132 / 89; Pulse 107; Resp 19; Temp 97.8(TE); Pulse Ox 97% on R/A; Weight 83.91 kg; iw Height 5 ft. 10 in. ; 18:30 BP 130 / 87; Pulse 88; Resp 18; Pulse Ox 95% on Nebulizer Mask; db 19:13 BP 130 / 87; Pulse 90; Resp 20; Temp 97.8; Pulse Ox 100% on Nebulizer Mask; Pain 0/10; bm8 22:23 BP 124 / 81; Pulse 81; Resp 19 S; Pulse Ox 99% on R/A; lg3 17:42 Body Mass Index 26.54 (83.91 kg, 177.8 cm) iw 19:13 Pain Scale: Adult bm8 [place] Coma Score: 19:13 Eye Response: spontaneous(4). Motor Response: obeys commands(6). Verbal Response: bm8 oriented(5). Total: 15. MDM: 17:39 Patient medically screened. rn 19:44 Differential diagnosis: Chronic Obstructive Pulmonary Disease pneumonia, Pneumothorax rn pulmonary edema. Data reviewed: vital signs, nurses notes, lab test result(s), EKG, radiologic studies, plain films, and as a result, I will admit patient. Consideration of Admission/Observation Patient was admitted/placed on observation. Escalation of care including admission/observation considered. Independent interpretation of the following test(s) in the Emergency Department X-Ray: My interpretation is Chest x-ray images negative for pneumonia per my interpretation. Care significantly affected by the following chronic conditions: Chronic Obstructive Pulmonary Disease. Counseling: I had a detailed discussion with the patient and/or guardian regarding the historical points, exam findings, and any diagnostic results supporting the discharge/admit diagnosis, lab results, radiology results, the need for further work-up and treatment in the hospital. Response to treatment: the patient's symptoms have mildly improved after treatment, and as a result, I will admit patient. 19:44 ED course: Normal saline 30 mL/kg bolus ordered and started, sepsis reevaluation rn completed. 04/15 18:00 Order name: Blood Culture Adult (2) rn 04/15 18:00 Order name: CBC with Diff; Complete Time: 19: rn 04/15 18:00 Order name: CMP; Complete Time: : rn 04/15 18:00 Order name: Lactate w/ 2H reflex if indic.; Complete Time: 19:43 rn 04/15 18:00 Order name: Protime (+inr); Complete Time: 19: rn 04/15 18:00 Order name: Ptt, Activated; Complete Time: : rn 04/15 21:30 Order name: Ghost Lactate-NO COLLECT Timer EDMS 04/15 18:00 Order name: Chest Single View XRAY; Complete Time: 19: rn 04/15 18:00 Order name: EKG; Complete Time: 18:01 rn 04/15 18:00 Order name: Cardiac monitoring; Complete Time: 18:53 rn 04/15 18:00 Order name: EKG - Nurse/Tech; Complete Time: 18:53 rn 04/15 18:00 Order name: IV Saline Lock - Large Bore; Complete Time: 18:53 rn 04/15 18:00 Order name: Labs collected and sent; Complete Time: 18:53 rn 04/15 18:00 Order name: O2 Per Protocol; Complete Time: 18:53 rn 04/15 18:00 Order name: O2 Sat Monitoring; Complete Time: 18:53 rn 04/15 18:00 Order name: Vital Signs; Complete Time: 18:53 rn EC:43 Rate is 84 beats/min. Rhythm is regular. Left axis deviation noted. QRS is positive in rn lead I and negative in lead aVF. [place] interval is normal. QRS interval is normal. QT interval is normal. No Q waves. T waves are Normal. No ST changes noted. Clinical impression: NSR w/ Non-specific ST/T Changes. Interpreted by me. Reviewed by me. Administered Medications: 18:55 Drug: Levalbuterol Inhalation 1.25 mg Inhalation once Route: Inhalation; db 18:55 Drug: Ipratropium Inhalation Aerosol 0.5 mg Inhalation once Route: Inhalation; db 18:55 Drug: Magnesium Sulfate IVPB 1 grams IVPB once over 1 hrs Route: IVPB; Infused Over: 1 db hrs; Site: right antecubital; 22:24 Follow up: Response: No adverse reaction; IV Status: Completed infusion; IV Intake: 48ysbw8 18:55 Drug: NS 0.9% IV 500 ml IV at bolus once Route: IV; Rate: bolus; Site: right db antecubital; 22:25 Follow up: IV Status: Completed infusion; IV Intake: 500ml lg3 18:56 Drug: MethylPrednisoLONE IVP 125 mg IVP once Route: IVP; Site: right antecubital; db 22:24 Follow up: Response: No adverse reaction lg3 20:30 Drug: NS 0.9% IV (30 ml/kg) 30 ml/kg IV at bolus once; Sepsis Protocol; subtract fluids lg3 already given Route: IV; Rate: bolus; Site: right antecubital; 22:25 Follow up: IV Status: Completed infusion; IV Intake: 2000ml lg3 20:30 Drug: levofloxacin IVPB 750 mg 150 ml IVPB once over 90 mins Volume: 150 ml; Route: lg3 IVPB; Infused Over: 90 mins; Site: right antecubital; 22:23 Follow up: Response: No adverse reaction; IV Status: Completed infusion; IV Intake: lg3 150ml Disposition Summary: 04/15/24 19:46 Hospitalization Ordered Notes: Hospitalization Status: Inpatient Admission rn Provider: Ken Alarcon rn Location: Telemetry/[facility] (Inpatient) rn Condition: Stable rn Problem: an acute exacerbation rn Symptoms: have improved rn Bed/Room Type: Standard rn Room Assignment: 404(04/15/24 20:11) rv1 Diagnosis - COPD/ Chronic obstructive pulmonary disease with (acute) exacerbation rn Forms: - Medication Reconciliation Form rn - SBAR form rn - Leadership Thank You Letter rn Signatures: Dispatcher [employer] Soo Horowitz RN Wes Zamarripa MD MD rn Able, Lacie, RN RN lg3 Courtney Perez RN RN Zoë Chávez rv1 Luis Eduardo Church RN RN bm8 Corrections: (The following items were deleted from the chart) 18:01 18:01 BLOOD CULTURE*+BA.LAB.BRZ ordered. EDMS EDMS 18:01 18:01 CBC+H.LAB.BRZ ordered. EDMS EDMS 18:01 18:01 COMPREHENSIVE METABOLIC PANEL+C.LAB.BRZ ordered. EDMS EDMS 18:01 18:01 LACTATE+C.LAB.BRZ ordered. EDMS EDMS 18:01 18:01 PROTIME (+INR)+COAG.LAB.BRZ ordered. EDMS EDMS 18:01 18:01 PTT, ACTIVATED+COAG.LAB.BRZ ordered. EDMS EDMS 18:53 18:00 Accucheck ordered. rn db 20:11 19:46 rn rv1
[2024-04-15] MEDS ORDERED: NA CHLORIDE 0.9% 2,000 ML ONE (19:47)
[2024-04-15] MEDS ORDERED: Levofloxacin 750mg IV 750 MG/150 ML BAG IV ONE (19:48)
[2024-04-15] MEDS ORDERED: ONDANSETRON 4 MG/2 ML VIAL IV PRN (22:24)
[2024-04-15] MEDS: IPRATROPIUM BROM 0.5MG/2.5ML NEB PRN (23:42)
[2024-04-15] MEDS: ALBUTEROL 2.5 MG/3 ML NEB SOL NEB PRN (23:42)
[2024-04-16] MEDS: METHYLPREDNISOLONE 40 MG INJ IV SCH
[2024-04-16 00:55] VITALS: BMI 26.5
[2024-04-16 07:16] LABS: Absolute Lymphocytes (CBC) 0.4 K/uL (0.7-4.9); Absolute Monocytes 0.1 K/uL (0.1-1.3); Absolute Neutrophil 4.8 K/uL (1.8-8.0); Basophils % 0.3 % (0-1.3); Hematocrit 40.4 % (39.6-49.0); Hemoglobin 13.8 g/dL (13.6-17.9); Lymphocytes % 8.1 % (15.3-44.8); MCH 31.1 pg (27.0-35.0); MCHC 34.2 g/dL (32.0-36.0); MCV 90.9 fL (80-100); MPV 6.8 fL (7.6-11.3); Monocytes % 1.2 % (3.3-12.3); Neutrophils % 90.4 % (41.7-73.7); Platelets 229 thou/uL (152-406); RBC Red Blood Cell Count 4.45 M/uL (4.33-5.43); Red Cell Distribution Width 15.1 % (12.1-15.2)
[2024-04-16 07:26] LABS: Anion Gap 10.7 mEq/L (5.0-15.0); Potassium 3.7 mEq/L (3.5-5.1)
[2024-04-16] MEDS ORDERED: HOME MED 1 EA UNK (Meloxicam [Meloxicam] 15 MG Tablet) PO PRN (07:26)
[2024-04-16] MEDS: ASPIRIN 81 MG CHEWABLE TABLET PO SCH (08:31)
[2024-04-16] MEDS: VANCOMYCIN HCL 125 MG CAPSULE PO SCH (08:31)
[2024-04-16] MEDS: TAMSULOSIN 0.4 MG SR CAP PO SCH (08:32)
[2024-04-16] MEDS: METOPROLOL XL 25 MG TAB PO SCH (08:32)
[2024-04-16] MEDS: FINASTERIDE 5 MG TAB PO SCH (08:32)
[2024-04-16] MEDS: BUSPIRONE HCL 5 MG TABLET PO SCH (08:33)
[2024-04-16] MEDS: HOME MED 1 EA UNK (Fluticasone/Umeclidin/Vilanter [Trelegy Ellipta 100-62.5-25] Blst.W.Dev IH SCH (08:38)
[2024-04-16] MEDS: BREXPIPRAZOLE 0.5 MG PO SCH (08:38)
[2024-04-16] MEDS: HOME MED 1 EA UNK (Paroxetine Hcl [Paxil] 40 MG Tablet) PO SCH (08:39)
[2024-04-16] MEDS: HOME MED 1 EA UNK (Potassium Gluconate [Potassium] 99 MG Tablet) PO SCH (08:40)
[2024-04-16 09:15] LABS: Blood Morphology Comment NOT SEEN (NOT SEEN); Platelet Estimate ADEQ; White Blood Cell Scan OK (OK)
[2024-04-16] MEDS: ALPRAZOLAM 1 MG TABLET PO PRN (20:28)
[2024-04-16] MEDS: LORATADINE 10 MG TAB PO SCH (20:28)
[2024-04-16] MEDS: MONTELUKAST 10 MG TAB PO SCH (20:28)
[2024-04-17 00:54] VITALS: O2SAT 96
--- NOTE | 2024-04-17 02:24 | HP ---
Date of Admission: 04/16/2024 Chief Complaint: Shortness of breath and chest pain. History Of Present Illness: This is a 78-year-old male patient, who has severe COPD, lives at home, comes into emergency room with above-mentioned complaints and after he was evaluated, he was admitted to the hospital. This morning when I saw him, he was lying in bed, not in distress. Denies any fever, chills, nausea, vomiting. No acid reflux feeling, but reports that in the lower part of his central chest area, he has some discomfort, usually this is associated with swallowing food and certain type of food causes this kind of discomfort. He denies any choking spell. Denies any fever or any expectoration. No hemoptysis and reported that his breathing got worse yesterday. So with all this, he was evaluated in the ER and admitted to the hospital. He has anxiety and depression problem and recently saw Dr. Bob who has adjusted his medications and he was encouraged to continue to see him as per his scheduled appointment as he reports that his anxiety and depression is still bothering him and not well controlled yet. Medications: Albuterol inhaler 2 puffs every 4 hours as needed, albuterol and Atrovent nebulizer treatment every 4 hours as needed, tamsulosin 0.4 mg takes 2 capsules daily, finasteride 5 mg daily, montelukast 10 mg daily, Folbic 1 tabletdaily, Trelegy inhaler 1 puff daily, aspirin 81 mg daily, alprazolam 2 mg takes 1/3rd tablet 3 times a day as needed, paroxetine 40 mg daily, metoprolol succinate 25 mg daily, vancomycin 125 mg every other day, Rixulti 0.5 mg daily. Allergies: NO KNOWN ALLERGIES. Review of Systems: Genitourinary: As mentioned above. Respiratory: As mentioned above. Cardiovascular: As mentioned above. All other systems reviewed and negative. Past Medical History: Significant for recurrent Clostridium difficile colitis problem with initial episode in August of 2023. past medical history also significant for headache, type 2 diabetes mellitus, COPD, hypertension, hyperlipidemia, diverticulosis, benign prostatic hypertrophy with lower urinary tract symptoms, osteoarthritis at multiple sites, anxiety, panic attacks. Past Surgical History: Hernia repair and hip surgery. Social History: Prior history of smoking, not at present time. Use of alcohol occasional. Family History: Mother had lung cancer. Physical Examination: Vital Signs: Height 5 feet 10 inches, weight 185 pounds, temperature 96.7, pulse 80, respiratory rate 20, blood pressure 154/90, oxygen saturation 94%. General: Awake, alert, oriented, not in distress. HEENT: Head atraumatic, normocephalic. Conjunctivae nonerythematous. Sclerae white. Mouth, no thrush or edema noted. Ears/Nose, no mass, lesion, discharge noted. Neck: Supple. No JVD, lymph nodes, bruit, thyromegaly noted. Lungs: Bilateral good equal air entry. Clear to auscultation. No rhonchi. No rales. Heart: Normal heart sounds, no murmur or gallop. Abdomen: Soft, bowel sounds normal. No guarding, rigidity, tenderness, mass, hepatosplenomegaly, distention, or bruit noted. Extremities: No leg edema. No calf tenderness. Skin: No rash, ulcer, cellulitis. Lymphatics: No lymph node enlargement in neck, supraclavicular, infraclavicular region. Neuro: No focal neurological deficit. Chest: Unremarkable. External Genitalia: Shows presence of Bentley catheter which is his indwelling Bentley catheter. Rectal: Deferred. Laboratory Data: Yesterday, white count 8, hemoglobin 14.4, platelets 231. Today, white count 5.3, hemoglobin 13.8, platelets 229. Upon admission, sodium 124, potassium 3.6, chloride 94, bicarb 22, BUN 5, creatinine 0.75, glucose 82. Lactic acid 4.6. Repeat lactic acid 2.3. Liver function tests unremarkable. Troponin 5.6. This morning, his troponin was 6.4. ProBNP 1221. Chest x-ray, no acute cardiopulmonary changes. Impression: 1. Acute exacerbation of COPD. 2. Hyponatremia. 3. Clostridium difficile colitis, recurrent, on chronic vancomycin therapy. 4. Anxiety. 5. Depression. 6. Benign prostatic hypertrophy with lower urinary tract symptoms. 7. Hypertension. 8. Type 2 diabetes mellitus. 9. Hyperlipidemia. 10. Diverticulosis. 11. Osteoarthritis, multiple sites. Plan: Admit the patient to hospital for further evaluation and management of this problem. The patient is appropriate for inpatient and is expected to spend 2 midnights in hospital. For his COPD exacerbation, we will go ahead and continue IV steroid, oxygen and nebulizer treatment per order. The patient also received antibiotic in the emergency room, [facility] and we will continue that. For his hypertension, no need for any further intervention except monitoring of the blood pressure and if necessary, we will use appropriate antihypertensive medication. For diabetes, he does not take any medications at home and no need for any further intervention for it. For anxiety and depression, we will continue his medication as he takes at home and he was advised to follow up with his psychiatrist on outpatient basis. For his recurrent Clostridium difficile colitis problem, he is doing very well with maintenance dose of vancomycin which is 125 mg every other day and we will continue that. The patient has indwelling Bentley catheter because of benign prostatic hypertrophy, which has resulted in urinary retention problem and he did see Dr. Verduzco for few times, but has not gone back to see him in almost over a year and a half or so and he understands and realizes he needs to go back to see him to see what else he can do, but so far he has not done so and he was asked to try to see him for followup to see what else he can do. He has home health care services that changes his Bentley catheter now on a monthly basis and his catheter is draining clear yellow color urine. For hyponatremia, no need for any further intervention except monitoring. We will repeat blood work tomorrow and possible discharge to go home tomorrow depending on his condition. Plan of treatment discussed with him. Total time spent 80 minutes including review of last hospital admission record, last office visit note, current emergency room visit record and performing today's evaluation and management. INDRA/JUDY Voice ID: [id number] GEORGIANA
[2024-04-17 07:17] LABS: Anion Gap 9.9 mEq/L (5.0-15.0); Potassium 3.9 mEq/L (3.5-5.1)
[2024-04-17 09:33] VITALS: BP 157/81; TEMP 97.7
--- NOTE | 2024-04-17 13:02 | EKG ---
Test Date: 2024-04-15 Test Time: 18:27:50 General Manager [employer]: GEOVANNI MEASUREMENT RESULTS: Intervals: Rate: 84 AR: 188 QRSD: 82 QT: 384 QTc: 453 [place]: P: 86 AR: 188 QRS: -77 T: 75 INTERPRETIVE STATEMENTS: Normal sinus rhythm Left axis deviation Inferior infarct, age undetermined Anterior infarct, age undetermined Abnormal ECG Compared to ECG 04/04/2024 18:57:43 Myocardial infarct finding now present First degree AV block no longer present Electronically Signed On 04-17-24 12:56:17 CDT by Ronald Martinez
--- NOTE | 2024-04-17 19:12 | DS ---
Date of Discharge: 04/17/2024 Disposition: Discharged to go home. Physical Examination: HEENT: Unremarkable. Lungs: Clear to auscultation. Heart: Sounds normal. Abdomen: Soft. Bowel sounds normal. No guarding, rigidity, tenderness, distention. Extremities: No leg edema. Discharge Medications And Instructions: 1.Continue all prior home medication. 2.Take following new medications: a.Levofloxacin 500 mg take 1 tablet by mouth daily for 1 week. b.Prednisone 10 mg take 3 tablets by mouth daily for 3 days, then 2 tablets by mouth daily for 3 day s, then 1 tablet by mouth daily for 3 days, then stop. c.Pantoprazole 40 mg take 1 tablet by mouth daily 30 minutes before breakfast. d.Sodium chloride 1000 mg tablet take 1 tablet by mouth daily. 3.Follow up at my office next week. 4.Follow up with Dr. Martin to get EGD. Laboratory Data: Last chemistry today, sodium 125, potassium 3.9, chloride 91, bicarb 28, BUN 10, cr eatinine 0.97, glucose 153. Yesterday, sodium was 126. Upon admission, his WBC was 8, hemoglobin 14 .4, platelets 231. Sodium 124, potassium 3.6, chloride 94, bicarb 22, BUN 5, creatinine 0.75, glucos e 82. Lactic acid 4.6. Repeat lactic acid 2.3. Liver function tests unremarkable. Troponin 5.6. Repeat troponin 6.4. ProBNP 1221 and chest x-ray no acute cardiopulmonary changes. Hospital Course: A 78-year-old pleasant male patient, came into emergency room with complaints of ch est pain and shortness of breath. Please see dictated H and P for more information. While the patie nt was evaluated in the ER, he was admitted to the hospital. He was treated for acute exacerbation o f COPD with steroid antibiotic nebulizer treatment and overall his condition has improved. Hyponatre eligio problem has been stable. The patient is on chronic suppressive antibiotic therapy with vancomyci n 125 mg every other day for recurrent Clostridium difficile colitis problem and this therapy has act ually controlled him very well. For depression, he has started to see a local psychiatrist, Dr. Nelson sheets, and he was advised to continue to follow up with him. Today, the patient was discharged to [facility] in stable condition with the above mentioned medications and instructions. He recently got started to receive some help with home health agency who is helping him to change his Bentley catheter on a monthly basis and Social Service consultation was requested to make arrangements to contact home health agency to resume care. Final Diagnoses: 1.Acute exacerbation of COPD. 2.Hyponatremia. 3.Clostridium difficile colitis, recurrent, on chronic vancomycin therapy. 4.Anxiety. 5.Depression. 6.Benign prostatic hypertrophy with lower urinary tract symptoms. 7.Hypertension. 8.Type 2 diabetes mellitus. 9.Hyperlipidemia. 10.Diverticulosis. 11.Osteoarthritis, multiple sites. Total time spent 40 minutes. INDRA/MODL Voice ID: [id number] Report ID: [id number]
== END 2024-04-17 11:43 | disposition home health service (06) | DRG 191 ==
LOC: ER 17:35 → ERHOLD 19:47 → 4TH 21:06
PROVIDERS: ADMIT Internal Medicine; ATTEND Internal Medicine
DX: J44.1 Chronic obstructive pulmonary disease with (acute) exacerbation (principal); E87.1 Hypo-osmolality and hyponatremia; E87.21 Acute metabolic acidosis; I10 Essential (primary) hypertension; F41.8 Other specified anxiety disorders; E78.5 Hyperlipidemia, unspecified; K57.90 Diverticulosis of intestine, part unspecified, without perforation or abscess without bleeding; N40.1 Benign prostatic hyperplasia with lower urinary tract symptoms; M19.90 Unspecified osteoarthritis, unspecified site; E11.9 Type 2 diabetes mellitus without complications; Z79.4 Long term (current) use of insulin
CPT/HCPCS: 36415; 71045; 80048; 80053; 83605; 83880; 84484; 85025; 85610; 85730; 87040; 93005; 94640; 94760; 96365; 96367; 96375; 99285; J2919; J3475; J7030; J7040; J7613; J7614; J7644

== ENCOUNTER 2024-04-18 23:23 | Inpatient (IN) | payer OTHER ==
[2024-04-18 23:55] LABS: Absolute Lymphocytes (CBC) 0.4 K/uL (0.7-4.9)
[2024-04-19 00:06] LABS: Albumin 3.5 g/dL (3.4-5.0); Albumin/Globulin Ratio 1.1 (1.1-1.8); Anion Gap 10.8 mEq/L (5.0-15.0); Bilirubin Direct 0.2 mg/dL (0-0.2); Bilirubin Indirect, Calculated 0.4 mg/dL (0.2-0.8); Bilirubin Total 0.6 mg/dL (0.2-1.0); Globulin 3.2 g/dL (2.3-3.5); Magnesium 1.5 mg/dL (1.6-2.4); Potassium 3.8 mEq/L (3.5-5.1); Protein, Total 6.7 g/dL (6.4-8.2)
[2024-04-19 00:09] LABS: Troponin High Sensitivity 469.7 pg/mL (<58.9)
[2024-04-19 00:14] LABS: Absolute Monocytes 0.6 K/uL (0.1-1.3); Absolute Neutrophil 10.7 K/uL (1.8-8.0); Basophils % 0.1 % (0-1.3); Eosinophils % 0.1 % (0-4.4); Hematocrit 37.5 % (39.6-49.0); Hemoglobin 13.1 g/dL (13.6-17.9); Lymphocytes % 3.5 % (15.3-44.8); MCH 31.3 pg (27.0-35.0); MCHC 34.8 g/dL (32.0-36.0); Monocytes % 5.4 % (3.3-12.3); Neutrophils % 90.9 % (41.7-73.7); Nucleated Red Blood Cells % 0.1 % (0-0); Platelets 243 thou/uL (152-406); RBC Red Blood Cell Count 4.17 M/uL (4.33-5.43); Red Cell Distribution Width 14.5 % (12.1-15.2)
[2024-04-19] MEDS ORDERED: IPRATROPIUM BROM 0.5MG/2.5ML ONE (00:18)
[2024-04-19] MEDS ORDERED: ALBUTEROL 2.5 MG/3 ML NEB SOL ONE (00:18)
[2024-04-19] MEDS ORDERED: CEFTRIAXONE 1000 MG/VIAL ONE (00:18)
[2024-04-19] MEDS ORDERED: NA CHLORIDE 0.9% 250 ML ONE (00:19)
[2024-04-19] MEDS ORDERED: AZITHROMYCIN 500 MG INJ IVPB ONE (00:19)
[2024-04-19 00:25] LABS: Arterial Blood Carboxyhemoglob 0.9 % (0-1.5); Blood Gas Oxyhemoglobin 94.1 % (94-97); Blood O2 Saturation 96.6 % (92-98.5)
[2024-04-19 00:26] LABS: Blood Gas THB 1.7 g/dl (12-18)
[2024-04-19 00:45] LABS: Band Neutrophils 14 % (0-1); Differential Total Cells Count 100; Lymphocytes 5 % (15-42); Monocytes 4 % (0-10); Reactive Lymphocytes 8 %; Segmented Neutrophils 69 % (40-80)
[2024-04-19 00:46] LABS: Blood Morphology Comment NOT SEEN (NOT SEEN); Platelet Estimate ADEQ
[2024-04-19] MEDS ORDERED: ASPIRIN 81 MG CHEWABLE TABLET ONE (01:16)
[2024-04-19] MEDS ORDERED: DIAZEPAM 2 MG TABLET ONE (01:17)
[2024-04-19] MEDS ORDERED: HEPARIN 5000 UNIT/ML 1 ML VIAL ONE (01:17)
[2024-04-19] MEDS ORDERED: HEPARIN/D5W 25,000 UNIT/500 ML BAG IV ONE (01:18)
[2024-04-19 02:59] LABS: D-Dimer 0.607 FEUug/mL (0-0.500); Protime INR 1.07
[2024-04-19 03:15] LABS: PTT, Activated Partial Thromb 177.4 SECONDS (24.3-36.9)
--- NOTE | 2024-04-19 03:24 | EDPHYS ---
Physician Documentation [facility] Name: Shawn Gant Age: 78 yrs Sex: Male : 1945 Arrival Date: 04/18/2024 Time: 23:23 Bed 4 Private MD: ED Physician Brandon Chiang HPI: 04/18 23:32 This 78 yrs old Male presents to ER via Unassigned with complaints of COPD sp4 Exacerbation. 04/19 03:15 Patient is 78-year-old male with past medical history of COPD, hyponatremia, C. sp4 difficile colitis on chronic vancomycin, anxiety, depression, BPH, hypertension, type 2 diabetes, hyperlipidemia, diverticulosis, osteoarthritis. Patient was just managed here in the hospital on 04/17/2024 . Primary MD is Dr. Alarcon. Patient presents with acute dyspnea worsening at home. Was administered Solu-Medrol IV prior to arrival and was given breathing treatment by EMS.. . Historical: - Allergies: 04/18 23:34 Polio Virus Vaccines; vc1 - Home Meds: 23:34 tamsulosin 0.4 mg Oral capsule [Active]; montelukast 10 mg Oral tablet [Active]; vc1 metoprolol tartrate 25 mg Oral tablet [Active]; meloxicam 15 mg Oral tablet [Active]; fluticasone furoate-vilanterol 100-25 mcg/dose inhalation Blister [Active]; finasteride 5 mg Oral tablet [Active]; duloxetine 30 mg Oral Capsule [Active]; buspirone 5 mg Oral tablet [Active]; alprazolam 2 mg Oral tablet [Active]; - PMHx: 23:34 borderline DM; History of urinary tract infection; COPD; Hypertension; vc1 - PSHx: 23:34 multiple ortho; vc1 - Immunization history:: Client reports receiving the 2nd dose of the Covid vaccine. - Infectious Disease History:: Denies. - Social history:: Smoking status: Patient/guardian denies using tobacco, the patient reports quitting approximately 15 years ago. - Family history:: not pertinent. ROS: 04/19 03:19 Constitutional: Negative for fever, chills, and weight loss, for shortness of breath sp4 and positive for generalized weakness.. All other systems are negative, Exam: 03:19 Constitutional: This is a well developed, but ill-appearing male, mild distress sp4 dyspnea, arrives with high flow oxygen mask. Stigmata of COPD, generalized pallor, indwelling Do catheter. Head/Face: Normocephalic, atraumatic. Eyes: Pupils equal round and reactive to light, extra-ocular motions intact. Lids and lashes normal. Conjunctiva and sclera are not injected. Cornea within normal limits. Periorbital areas with no swelling, redness, or edema. ENT: Nares patent. No nasal discharge, no septal abnormalities noted. Tympanic membranes are normal and external auditory canals are clear. Oropharynx with no redness, swelling, or masses, exudates, or evidence of obstruction, uvula midline. Mucous membranes moist. Neck: Trachea midline, no thyromegaly or masses palpated, and no cervical lymphadenopathy. Supple, full range of motion without nuchal rigidity, or vertebral point tenderness. Chest/axilla: Normal chest wall appearance and motion. Nontender with no deformity. No lesions are appreciated. Cardiovascular: Regular rate and rhythm with a normal S1 and S2. No gallops, murmurs, or rubs. Normal PMI, no JVD. No pulse deficits. Respiratory: Lungs have equal breath sounds bilaterally, clear to auscultation and percussion. No rales, rhonchi or wheezes noted. No increased work of breathing, no retractions or nasal flaring. Abdomen/GI: Soft, with normal bowel sounds. No distension or tympany. No guarding or rebound. No evidence of tenderness throughout. Back: No spinal tenderness. No costovertebral tenderness. Skin: Warm, dry with normal turgor. Normal color with no rashes, no lesions, and no evidence of cellulitis. MS/ Extremity: Pulses equal, no cyanosis. Neurovascular intact. Full, normal range of motion. Neuro: Awake and alert, GCS 15, oriented to person, place, time, and situation. Cranial nerves II-XII grossly intact. Motor strength 5/5 in all extremities. Sensory grossly intact. Psych: Awake, alert, with orientation to person, place and time. Behavior, mood, and affect are within normal limits 03:19 ECG was reviewed by the Attending Physician. EKG 0303 normal sinus rhythm rate of 90. Vital Signs: 04/18 23:29 BP 129 / 84; Pulse 99; Resp 28; Temp 98.3; Pulse Ox 96% on 3 lpm NC; Weight 88.9 kg vc1 (M); Height 5 ft. 10 in. ; Pain 0/10; 04/19 00:00 BP 128 / 85; Pulse 92; Resp 20; Pulse Ox 100% on Nebulizer Mask; jj7 01:48 BP 134 / 100; Pulse 103; Resp 18 S; Pulse Ox 95% on R/A; br2 03:00 BP 128 / 82; Pulse 90; Resp 20; Pulse Ox 95% ; jj7 04:49 BP 125 / 77; Pulse 83; Resp 18; Pulse Ox 92% on R/A; br2 05:55 BP 130 / 78; Pulse 78; Resp 17; Pulse Ox 93% on R/A; jj7 06:31 BP 134 / 77; Pulse 72; Resp 18 S; Pulse Ox 96% on R/A; br2 04/18 23:29 Body Mass Index 28.12 (88.90 kg, 177.8 cm) vc1 04/18 23:29 Pain Scale: Adult vc1 MDM: 04/18 23:35 Patient medically screened. sp4 04/19 03:19 ED course: EXAM DESCRIPTION: X-ray single view chest. CLINICAL HISTORY: 78 years Male, sp4 CHEST PAIN COMPARISON: Chest x-ray report from 04/15/2024 TECHNIQUE: Single portable x-ray view of the chest performed on 04/18/2024 at 11:38 PM FINDINGS: The lungs are well expanded and are grossly clear. There may be mild fibrosis and/or atelectasis in the lung bases. There is no evidence of a pneumothorax. The cardiac silhouette is normal in size and configuration. The mediastinal contours are normal. No acute osseous abnormality is identified. There are old left-sided rib fractures. No focal soft tissue abnormalities are seen. Lines and tubes: None. Free air: None identified, IMPRESSION: No evidence of acute intrathoracic disease. There may be mild fibrosis and/or atelectasis in the lung bases. . 03:22 Differential diagnosis: Anemia Anxiety Reaction asthma, Bronchitis CHF exacerbation, sp4 Chronic Obstructive Pulmonary Disease pneumonia, Psychogenic. Antibiotic administration: Rocephin and Zithromax IV given. Data reviewed: vital signs, nurses notes, EMS record, old medical records, lab test result(s), EKG, radiologic studies, plain films. Consideration of Admission/Observation Patient was admitted/placed on observation. Escalation of care including admission/observation considered. Management of patient was discussed with the following: Hospitalist: Agnes SANDOVAL . Neon Molder: Jeff SANDOVAL . 04/18 23:34 Order name: BMP; Complete Time: 00:28 4 04/18 23:34 Order name: Blood Culture Adult (2) [facility] 04/18 23:34 Order name: CBC with Diff; Complete Time: 03:17 [facility] 04/18 23:34 Order name: CPK; Complete Time: 00:28 [facility] 04/18 23:34 Order name: D-Dimer; Complete Time: 03:17 [facility] 04/18 23:34 Order name: Hepatic Function; Complete Time: 00:28 [facility] 04/18 23:34 Order name: Lipase; Complete Time: 00:28 [facility] 04/18 23:34 Order name: Magnesium; Complete Time: 00:28 [facility] 04/18 23:34 Order name: NT PRO-BNP; Complete Time: 00:28 [facility] 04/18 23:34 Order name: PT-INR; Complete Time: 03:17 [facility] 04/18 23:34 Order name: Ptt, Activated; Complete Time: 03:17 [facility] 04/18 23:34 Order name: Troponin HS; Complete Time: 00:28 [facility] 04/18 23:34 Order name: ABG; Complete Time: 03:17 [facility] 04/19 00:22 Order name: Manual Differential; Complete Time: 03:17 [facility] 04/19 03:15 Order name: Urinalysis W/Microscopic [facility] 04/19 07:40 Order name: PTT, Activated Partial Thromb [facility] 04/19 08:00 Order name: Troponin High Sensitivity [facility] 04/19 09:08 Order name: Glucose, Ancillary Testing [facility] 04/19 11:11 Order name: PTT, Activated Partial Thromb [facility] 04/19 11:25 Order name: Troponin High Sensitivity [facility] 04/18 23:34 Order name: XRAY CXR (1 view) [facility] 04/18 23:34 Order name: Call RT; Complete Time: 23:49 [facility] 04/19 03:28 Order name: CONS Physician Consult [facility] 04/18 23:34 Order name: Cardiac monitoring; Complete Time: 23:48 sp4 04/18 23:34 Order name: EKG - Nurse/Tech; Complete Time: 23:35 sp4 04/18 23:34 Order name: IV Saline Lock; Complete Time: 23:48 sp4 04/18 23:34 Order name: Labs collected and sent; Complete Time: 23:48 sp4 04/18 23:34 Order name: O2 Per Protocol; Complete Time: 23:48 sp4 04/18 23:34 Order name: O2 Sat Monitoring; Complete Time: 23:48 sp4 04/19 03:15 Order name: Do: exchange do; Complete Time: 04:24 sp4 EC:03 Rate is 90 beats/min. Rhythm is regular, Normal Sinus Rhythm. QRS [place] is Normal. [place] sp4 interval is normal. QRS interval is normal. QT interval is normal. No Q waves. T waves are Normal. No ST changes noted. Clinical impression: Normal ECG. Interpreted by me. Reviewed by me. Administered Medications: 00:30 Drug: Rocephin - Rocephin (cefTRIAXone) IVPB 1 grams IVPB once over 30 mins; (mix in 50 jj7 mL NS) Route: IVPB; Infused Over: 30 mins; Site: left wrist; 01:00 Follow up: IV Status: Completed infusion j7 00:30 Drug: Zithromax IVPB 500 mg IVPB once over 1 hrs; mix in 250 mL NS Route: IVPB; Infused jj7 Over: 1 hrs; Site: right forearm; 01:40 Follow up: IV Status: Completed infusion j7 01:02 Drug: Ipratropium Inhalation Aerosol 0.5 mg Inhalation once; Every 20 min for a total jj7 of 3 treatments x3 Route: Inhalation; 01:05 Drug: Albuterol Inhalation 2.5 mg Inhalation every 20 minutes x3 Route: Inhalation; j7 01:20 Drug: Albuterol Inhalation 2.5 mg Inhalation every 20 minutes x3 Route: Inhalation; 7 01:20 Drug: Ipratropium Inhalation Aerosol 0.5 mg Inhalation once; Every 20 min for a total jj7 of 3 treatments x3 Route: Inhalation; 01:42 Drug: Diazepam PO 2 mg PO once Route: PO; jj7 02:00 Follow up: Response: Marked relief of symptoms 01:42 Drug: Aspirin PO Chewable Tablet 324 mg PO once; 81 mg tablets x 4 Route: PO; jj7 02:00 Follow up: Response: No adverse reaction j7 01:43 Drug: Ipratropium Inhalation Aerosol 0.5 mg Inhalation once; Every 20 min for a total jj7 of 3 treatments x3 Route: Inhalation; 01:45 Drug: Albuterol Inhalation 2.5 mg Inhalation every 20 minutes x3 Route: Inhalation; j 01:46 Drug: Heparin (RI-Bolus with thrombolytic) - HEParin IVP 60 units/kg IVP once; Max 4000 jj7 units {Co-Signature: br2 (Penny De Leon RN).} Route: IVP; Site: right forearm; 02:00 Follow up: Response: No adverse reaction 01:48 Drug: Heparin (RI Drip) 12 units/kg/hr - ([place] [address] units, D5W IV 500 ml) IV at jj7 calculated rate Per protocol; Max initial rate 1000 units/hr {Co-Signature: br2 (Penny De Leon RN).} Route: IV; Rate: calculated rate; Site: right forearm; 07:05 Follow up: Response: No adverse reaction; IV Status: Infusion continued upon admission mb9 04:00 Drug: NS 0.9% IV 1000 ml IV at 100 ml/hr continuous Route: IV; Rate: 100 ml/hr; Site: [facility] right forearm; 07:05 Follow up: Response: No adverse reaction; IV Status: Completed infusion mb9 Disposition: 03:22 Critical Care:. sp4 Disposition Summary: 04/19/24 03:24 Hospitalization Ordered Notes: Hospitalization Status: Inpatient Admission sp4 Provider: Jack Alarcon spSonam Condition: Stable sp4 Problem: new sp4 Symptoms: have improved sp4 Bed/Room Type: Standard sp4 Location: Telemetry/MedSur (Inpatient)(04/19/24 11:42) mb4 Room Assignment: [facility]24 11:42[facility] Diagnosis - COPD/ Chronic obstructive pulmonary disease with (acute) exacerbation sp4 - Acute NSTEMI.. Hyponatremia, generalized weakness, indwelling urinary catheter sp4 with associated UTI Forms: - Medication Reconciliation Form sp4 - SBAR form sp4 - Leadership Thank You Letter sp4 Critical care time excluding procedures: 03:22 Critical care time: Bedside Care: 36 minutes, Consultation: 12 minutes, Family sp4 Intervention: 12 minutes. Total time: 60 minutes Signatures: Dispatcher [employer] EDMS Linda Song, RN RN cg Laura Palafox4 Elenita Urias RN RN vc1 Eve Mosley RN RN jj7 Brandon Chiang MD MD sp4 [facility] Margaret Scott RN mb9 Penny De Leon RN br2 Corrections: (The following items were deleted from the chart) 04/18 23:35 23:34 BASIC METABOLIC PANEL+C.LAB.BRZ ordered. EDMS EDMS 23:35 23:34 BLOOD CULTURE*+BA.LAB.BRZ ordered. EDMS EDMS 23:35 23:34 CBC+H.LAB.BRZ ordered. EDMS EDMS 23:35 23:34 CREATINE PHOSPHOKINASE+C.LAB.BRZ ordered. EDMS EDMS 23:35 23:34 D-DIMER+COAG.LAB.BRZ ordered. EDMS EDMS 23:35 23:34 HEPATIC FUNCTION+C.LAB.BRZ ordered. EDMS EDMS 23:35 23:34 LIPASE+C.LAB.BRZ ordered. EDMS EDMS 23:35 23:34 MAGNESIUM+C.LAB.BRZ ordered. EDMS EDMS 23:35 23:34 PROBNP+C.LAB.BRZ ordered. EDMS EDMS 23:35 23:34 PROTIME (+INR)+COAG.LAB.BRZ ordered. EDMS EDMS 23:35 23:34 PTT, ACTIVATED+COAG.LAB.BRZ ordered. EDMS EDMS 23:35 23:34 Troponin High Sensitivity+C.LAB.BRZ ordered. EDMS EDMS 23:35 23:35 BiPap ([employer] Only)+RC.RAD.BRZ ordered. EDMS EDMS 23:46 23:35 PROBNP+C.LAB.BRZ ordered. EDMS EDMS 04/19 02:25 00:30 PTT, ACTIVATED+COAG.LAB.BRZ ordered. EDMS EDMS 05:01 03:24 Telemetry/MedSurg (Inpatient) sp4 cg 05:01 03:24 sp4 cg 07:08 07:08 PTT, ACTIVATED+COAG.LAB.BRZ ordered. EDMS EDMS 07:14 07:14 Troponin High Sensitivity+C.LAB.BRZ ordered. EDMS EDMS 10:33 10:33 PTT, ACTIVATED+COAG.LAB.BRZ ordered. EDMS EDMS 11:42 05:01 [facility] ER HOLD cg mb4 11:42 05:01 HOLD- mb4
--- NOTE | 2024-04-19 03:24 | ER ---
Nurse's Notes [facility] Name: Shawn Gant Age: 78 yrs Sex: Male : 1945 Arrival Date: 04/18/2024 Time: 23:23 Bed 4 Private MD: Diagnosis: COPD/ Chronic obstructive pulmonary disease with (acute) exacerbation;Acute NSTEMI.. Hyponatremia, generalized weakness, indwelling urinary catheter with associated UTI Presentation: 04/18 23:29 Chief complaint: EMS states: Called for COPD exacerbation. When we arrived he was 91% vc1 on room air with audible bilateral wheezes. Coronavirus screen: Client denies travel out of the [place] in the last 14 days. shortness of breath, At this time, the client does not indicate any symptoms associated with coronavirus-19. Ebola Screen: Patient negative for fever greater than or equal to 101.5 degrees Fahrenheit, and additional compatible Ebola Virus Disease symptoms Patient denies exposure to infectious person. Patient denies travel to an Ebola-affected area in the 21 days before illness onset. No symptoms or risks identified at this time. Initial Sepsis Screen: Does the patient meet any 2 criteria? RR > 20 per min. HR > 90 bpm. Yes Does the patient have a suspected source of infection? No. Patient's initial sepsis screen is negative. Risk Assessment: Do you want to hurt yourself or someone else? Patient reports no desire to harm self or others. Note pt states COPD exacerbation all day. Onset of symptoms was April 18, 2024. Care prior to arrival: Medication(s) given: Albuterol Neb x 3, Atrovent Neb x 1, solumedrol 125 mg IV initiated. 16G left AC. Care prior to arrival: Oxygen administered. via nasal cannula. Activity prior to arrival: None. Mechanism of Injury: No Mechanism of Injury. Transition of care: patient was not received from another setting of care. 23:29 Method Of Arrival: EMS: [facility] vc1 23:29 Acuity: MARIO 3 vc1 Triage Assessment: 23:37 General: Appears distressed, uncomfortable, unkempt, Behavior is cooperative, vc1 Talkative. Pain: Denies pain. EENT: No deficits noted. No signs and/or symptoms were reported regarding the EENT system. Neuro: Level of Consciousness is awake, alert, obeys commands, Oriented to person, place, time, situation, Appropriate for age. Cardiovascular: Capillary refill < 3 seconds Patient's skin is warm and dry. Rhythm is sinus tachycardia. Respiratory: Reports shortness of breath at rest labored breathing Airway is patent Respiratory effort is even, labored, Respiratory pattern is symmetrical, tachypnea Breath sounds with wheezes bilaterally. Onset: The symptoms/episode began/occurred this morning, the patient has moderate shortness of breath. GI: Abdomen is non-distended. : No deficits noted. No signs and/or symptoms were reported regarding the genitourinary system. Derm: Skin is intact, is healthy with good turgor, Skin is dry, Skin is normal, Skin temperature is warm. Musculoskeletal: No deficits noted. No signs and/or symptoms reported regarding the musculoskeletal system. Historical: - Allergies: 23:34 Polio Virus Vaccines; vc1 - Home Meds: 23:34 tamsulosin 0.4 mg Oral capsule [Active]; montelukast 10 mg Oral tablet [Active]; vc1 metoprolol tartrate 25 mg Oral tablet [Active]; meloxicam 15 mg Oral tablet [Active]; fluticasone furoate-vilanterol 100-25 mcg/dose inhalation Blister [Active]; finasteride 5 mg Oral tablet [Active]; duloxetine 30 mg Oral Capsule [Active]; buspirone 5 mg Oral tablet [Active]; alprazolam 2 mg Oral tablet [Active]; - PMHx: 23:34 borderline DM; History of urinary tract infection; COPD; Hypertension; vc1 - PSHx: 23:34 multiple ortho; vc1 - Immunization history:: Client reports receiving the 2nd dose of the Covid vaccine. - Infectious Disease History:: Denies. - Social history:: Smoking status: Patient/guardian denies using tobacco, the patient reports quitting approximately 15 years ago. - Family history:: not pertinent. Screenin:36 [facility] ED Fall Risk Assessment (Adult) History of falling in the last 3 months, vc1 including since admission No falls in past 3 months (0 pts) Confusion or Disorientation No (0 pts) Intoxicated or Sedated No (0 pts) Impaired Gait No (0 pts) Mobility Assist Device Used No (0 pt) Altered Elimination No (0 pt) Score/Fall Risk Level 0 - 2 = Low Risk Oriented to surroundings, Maintained a safe environment, Educated pt \\T\\ family on fall prevention, incl call for assistance when getting out of bed. Abuse screen: Denies threats or abuse. Nutritional screening: No deficits noted. Tuberculosis screening: No symptoms or risk factors identified. Assessment: 04/19 00:00 General: Appears uncomfortable, Behavior is calm, cooperative, appropriate for age. jj7 Respiratory: Airway is compromised Respiratory effort is labored, Respiratory pattern is Breath sounds with wheezes Parent/caregiver reports the patient having shortness of breath at rest labored breathing. 02:00 General: Appears in no apparent distress. comfortable, Behavior is calm, cooperative, jj7 appropriate for age. Respiratory: Airway is patent Respiratory effort is even, unlabored, relaxed. 04:32 Reassessment: No changes from previously documented assessment. Patient is alert, jj7 oriented x 3, equal unlabored respirations, skin warm/dry/pink. Vital Signs: 04/18 23:29 BP 129 / 84; Pulse 99; Resp 28; Temp 98.3; Pulse Ox 96% on 3 lpm NC; Weight 88.9 kg vc1 (M); Height 5 ft. 10 in. ; Pain 0/10; 04/19 00:00 BP 128 / 85; Pulse 92; Resp 20; Pulse Ox 100% on Nebulizer Mask; jj7 01:48 BP 134 / 100; Pulse 103; Resp 18 S; Pulse Ox 95% on R/A; br2 03:00 BP 128 / 82; Pulse 90; Resp 20; Pulse Ox 95% ; jj7 04:49 BP 125 / 77; Pulse 83; Resp 18; Pulse Ox 92% on R/A; br2 05:55 BP 130 / 78; Pulse 78; Resp 17; Pulse Ox 93% on R/A; jj7 06:31 BP 134 / 77; Pulse 72; Resp 18 S; Pulse Ox 96% on R/A; br2 04/18 23:29 Body Mass Index 28.12 (88.90 kg, 177.8 cm) vc1 04/18 23:29 Pain Scale: Adult vc1 ED Course: 04/18 23:28 Patient arrived in ED. vc1 23:[address] UPON ARRIVAL. jj7 23:32 Brandon Chiang MD is Attending Physician. sp4 23:34 Triage completed. vc1 23:35 Arm band placed on right wrist. vc1 23:36 Patient has correct armband on for positive identification. Bed in low position. Call vc1 light in reach. youth nutritional monitor on. Pulse ox on. NIBP on. 23:44 XRAY CXR (1 view) In Process Unspecified. EDMS 23:45 Initial lab(s) drawn, by me, sent to lab. First set of blood cultures drawn by me. vk 23:49 Blood Culture Adult (2) Sent. vk 23:49 CBC with Diff Sent. vk 23:49 D-Dimer Sent. vk 23:49 Hepatic Function Sent. vk 23:49 Lipase Sent. vk 23:49 Troponin HS Sent. vk 23:49 Ptt, Activated Sent. vk 23:49 PT-INR Sent. vk 23:49 NT PRO-BNP Sent. vk 23:49 Magnesium Sent. vk 23:49 Inserted saline lock: 22 gauge in right forearm, using aseptic technique. Blood vk collected. Flushed with 10 mL NS. 23:50 Maintain EMS IV. Dressing intact. Good blood return noted. Site clean \\T\\ dry. Gauge \\T\\ vk site: 20 gauge Left Forearm. Flushed with 10 mL NS. 04/19 00:10 Second set of blood cultures drawn by me. vk 01:01 Eve Mosley, FIONA is Primary Nurse. jj7 01:12 Provided Education on: USE OF CALL ESPINO. jj7 03:23 Jack Alarcon MD is Hospitalizing Provider. sp4 04:20 Gibson cath removed intact, balloon deflated, EXCHANGED OLD CATH WITH NEW ONE. jj7 04:26 Gibson cath inserted, using sterile technique, 16 Fr., by me, balloon inflated, to jj7 gravity drainage, returned cloudy urine. Patient tolerated well. 07:04 No provider procedures requiring assistance completed. Patient admitted, IV remains in mb9 place. 07:07 Report given to REPORT GIVEN TO GATO JAIMES. jj7 11:52 1152 CM met with and his Acacia at the bedside in the ED exam room. ane Patient identified by name and . Demographic sheet confirmed. Patient states he lives with his in a single story home, and that prior to admission, he performs ADLs independently with use of a walker and sometimes a wheelchair. Patient states, " I'm afraid of my balance.". Other DME in the home includes a nebulizer, and an oxygen concentrator that he reports not using. MPOA is in place and PCP is Dr. Alarcon. Patient states he prefers to return home upon discharge and Acacia will drive him home. CM team will continue follow and coordinate care during this hospital stay. Administered Medications: 00:30 Drug: Rocephin - Rocephin (cefTRIAXone) IVPB 1 grams IVPB once over 30 mins; (mix in 50 jj7 mL NS) Route: IVPB; Infused Over: 30 mins; Site: left wrist; 01:00 Follow up: IV Status: Completed infusion 00:30 Drug: Zithromax IVPB 500 mg IVPB once over 1 hrs; mix in 250 mL NS Route: IVPB; Infused jj7 Over: 1 hrs; Site: right forearm; 01:40 Follow up: IV Status: Completed infusion 01:02 Drug: Ipratropium Inhalation Aerosol 0.5 mg Inhalation once; Every 20 min for a total jj7 of 3 treatments x3 Route: Inhalation; 01:05 Drug: Albuterol Inhalation 2.5 mg Inhalation every 20 minutes x3 Route: Inhalation; 01:20 Drug: Albuterol Inhalation 2.5 mg Inhalation every 20 minutes x3 Route: Inhalation; 01:20 Drug: Ipratropium Inhalation Aerosol 0.5 mg Inhalation once; Every 20 min for a total jj7 of 3 treatments x3 Route: Inhalation; 01:42 Drug: Diazepam PO 2 mg PO once Route: PO; 02:00 Follow up: Response: Marked relief of symptoms j 01:42 Drug: Aspirin PO Chewable Tablet 324 mg PO once; 81 mg tablets x 4 Route: PO; 02:00 Follow up: Response: No adverse reaction j 01:43 Drug: Ipratropium Inhalation Aerosol 0.5 mg Inhalation once; Every 20 min for a total jj7 of 3 treatments x3 Route: Inhalation; 01:45 Drug: Albuterol Inhalation 2.5 mg Inhalation every 20 minutes x3 Route: Inhalation; 01:46 Drug: Heparin (FL-Bolus with thrombolytic) - HEParin IVP 60 units/kg IVP once; Max 4000 jj7 units {Co-Signature: br2 (Penny De Leon RN).} Route: IVP; Site: right forearm; 02:00 Follow up: Response: No adverse reaction jj7 01:48 Drug: Heparin (FL Drip) 12 units/kg/hr - ([place] [address] units, D5W IV 500 ml) IV at jj7 calculated rate Per protocol; Max initial rate 1000 units/hr {Co-Signature: br2 (Penny De Leon RN).} Route: IV; Rate: calculated rate; Site: right forearm; 07:05 Follow up: Response: No adverse reaction; IV Status: Infusion continued upon admission mb9 04:00 Drug: NS 0.9% IV 1000 ml IV at 100 ml/hr continuous Route: IV; Rate: 100 ml/hr; Site: [facility] right forearm; 07:05 Follow up: Response: No adverse reaction; IV Status: Completed infusion mb9 Medication: 04/18 23:37 VIS not applicable for this client. vc1 Outcome: 04/19 03:24 Decision to Hospitalize by Provider. sp4 07:27 Admitted to ER Hold. Please see [facility] for further documentation. mb9 07:27 Condition: stable 07:27 Instructed on the need for admit, 12:34 Patient left the ED. mb9 Signatures: Dispatcher [employer] EDMS Elenita Urias RN RN vc1 Eve Mosley RN RN jjMargaret Pérez RN RN mb9 Brandon Chiang MD MD sp4 Keara Gibson Belinda, RN RN br2 Julia Frank RN RN ane Riddle, Belinda RN br2 Corrections: (The following items were deleted from the chart) 04:28 04/18 23:[address] UPON ARRIVAL j7 jj7 04/19 04:30 04/18 23:[address] UPON ARRIVAL 7 jj7
[2024-04-19] MEDS ORDERED: NA CHLORIDE 0.9% 1,000 ML ONE (03:54)
--- NOTE | 2024-04-19 06:14 | RAD REPORT ---
EXAM DESCRIPTION: X-ray single view chest. CLINICAL HISTORY: 78 years Male, CHEST PAIN COMPARISON: Chest x-ray report from 04/15/2024 TECHNIQUE: Single portable x-ray view of the chest performed on 04/18/2024 at 11:38 PM FINDINGS: The lungs are well expanded and are grossly clear. There may be mild fibrosis and/or atelectasis in t he lung bases. There is no evidence of a pneumothorax. The cardiac silhouette is normal in size and configuration. The mediastinal contours are normal. No acute osseous abnormality is identified. There are old left-sided rib fractures. No focal soft tissue abnormalities are seen. Lines and tubes: None. Free air: None identified, IMPRESSION: No evidence of acute intrathoracic disease. There may be mild fibrosis and/or atelectasis in the lung bases. Electronically signed by: Kaylyn Bailey DO 04/19/2024 12:33 AM CDT RP Due to temporary technical issues with the PACS/Pley reporting system, reports are being camelia d by the in-house radiologist without review as a courtesy to ensure prompt reporting the interpreting radiologist is fully responsible for the content of the report. Transcribed Date/Time: 04/19/2024 6:13 AM
[2024-04-19 07:36] VITALS: BMI 27.9
[2024-04-19] MEDS: NA CHLORIDE 0.9% 1,000 ML IV SCH (08:49)
[2024-04-19] MEDS ORDERED: D10W 125 ML IV PRN (08:49)
[2024-04-19] MEDS ORDERED: GLUCAGON 1 MG/VIAL IM PRN (08:49)
[2024-04-19] MEDS ORDERED: ACETAMINOPHEN 325 MG TABLET PO PRN (08:49)
[2024-04-19] MEDS: IPRATROPIUM BROM 0.5MG/2.5ML NEB SCH (08:49)
[2024-04-19] MEDS: ALBUTEROL 2.5 MG/3 ML NEB SOL NEB SCH (08:49)
[2024-04-19] MEDS: INSULIN REGULAR (HUMAN) 100 UNIT/ML SQ SCH (08:49)
[2024-04-19 09:18] LABS: Specific Gravity 1.008 (1.005-1.030); Sqamous Epithelial <5 /HPF (None Seen); Urine Bacteria <20 /HPF (<20); Urine Bilirubin NEGATIVE (Negative); Urine Blood 1+ (Negative); Urine Clarity Clear (Clear); Urine Color Colorless (Yellow); Urine Culture Reflex Order REFLEXED; Urine Glucose 3+ (Negative); Urine Ketones 1+ (Negative); Urine Micro Reflex YN NO BILL MICROSCOPIC; Urine Nitrite NEGATIVE (Negative); Urine Protein NEGATIVE (Negative); Urine RBC <5 /HPF (None Seen); Urine Urobilinogen Normal (Normal); Urine WBC 20-50 /HPF (<5); Urine pH 6.5 (5.0-7.0)
[2024-04-19] MEDS ORDERED: METHYLPREDNISOLONE 125 MG INJ ONE (10:21)
[2024-04-19] MEDS ORDERED: D5 0.45 NS 1,000 ML IV ONE (10:21)
[2024-04-19] MEDS: METHYLPREDNISOLONE 125 MG INJ IV ONE (10:44)
[2024-04-19] MEDS: D5 0.45 NS 1,000 ML IV SCH (10:44)
[2024-04-19] MEDS: METHYLPREDNISOLONE 125 MG INJ IV SCH (10:45)
--- NOTE | 2024-04-19 11:36 | HP ---
Date of Admission: 04/19/2024 Chief Complaint: Chest pain and shortness of breath. History Of Present Illness: This is a 78-year-old pleasant male patient, who was recently discharged from the hospital on 04/17/2024 and his last hospital admission was for COPD exacerbation. During that hospital stay, the patient was complaining of chest pain that he has been having lately off and on for some time and describes pain in the lower part of his esophagus where after he eats or when he eats certain food, he has that discomfort and sometime it would be without eating that kind of food. His cardiac enzymes were normal during that hospitalization and the patient had normal stress test in January 2022. So, he was advised to have outpatient followup with team primary care physician, Dr. Martin, for consideration of EGD and he was advised to take proton pump inhibitor therapy and he was discharged to go home with pantoprazole. He also had hyponatremia and sodium level was 124 to 126 range and was started on sodium chloride tablet daily. Yesterday late evening, he contacted me and informed me that he was not feeling any good, was having lot of trouble with shortness of breath and he was advised to come back to emergency room and after he was evaluated in the ER, he was admitted to the hospital with non-STEMI. The patient's chest pain complaint has not changed any since last hospital admission. Medications: Albuterol inhaler 2 puffs every 4 hours as needed, albuterol and Atrovent nebulizer treatment every 4 hours as needed, tamsulosin 0.4 mg takes 2 capsules daily, finasteride 5 mg daily, montelukast 10 mg daily, Folbic 1 tabletdaily, Trelegy inhaler 1 puff daily, aspirin 81 mg daily, alprazolam 2 mg takes 1/3rd tablet 3 times a day as needed, paroxetine 40 mg daily, metoprolol succinate 25 mg daily, vancomycin 125 mg every other day, Rixulti 0.5 mg daily, pantoprazole 40 mg daily, sodium chloride 1 gm daily. Allergies: NO KNOWN ALLERGIES. Review of Systems: Genitourinary: As mentioned above. Respiratory: As mentioned above. Cardiovascular: As mentioned above. All other systems reviewed and negative. Past Medical History: Significant for recurrent Clostridium difficile colitis problem with initial episode in August of 2023. past medical history also significant for headache, type 2 diabetes mellitus, COPD, hypertension, hyperlipidemia, diverticulosis, benign prostatic hypertrophy with lower urinary tract symptoms, osteoarthritis at multiple sites, anxiety, panic attacks. Past Surgical History: Hernia repair and hip surgery. Social History: Prior history of smoking, not at present time. Use of alcohol occasional. Family History: Mother had lung cancer. Physical Examination: Vital Signs: Height 5 feet 10 inches, weight 195 pounds, temperature 98, pulse 89, respiratory rate 18, blood pressure 113/60, oxygen saturation 100%. General: Awake, alert, oriented, not in distress. HEENT: Head atraumatic, normocephalic. Conjunctivae nonerythematous. Sclerae white. Mouth, no thrush or edema noted. Ears/Nose, no mass, lesion, discharge noted. Neck: Supple. No JVD, lymph nodes, bruit, thyromegaly noted. Lungs: Bilateral good equal air entry. Clear to auscultation. No rhonchi. No rales. Heart: Normal heart sounds, no murmur or gallop. Abdomen: Soft, bowel sounds normal. No guarding, rigidity, tenderness, mass, hepatosplenomegaly, distention, or bruit noted. Extremities: No leg edema. No calf tenderness. Skin: No rash, ulcer, cellulitis. Lymphatics: No lymph node enlargement in neck, supraclavicular, infraclavicular region. Neuro: No focal neurological deficit. Chest: Unremarkable. External Genitalia: The patient has indwelling Bentley catheter draining clear yellow urine. Rectal: Deferred. Laboratory Data: Chest x-ray, no acute cardiopulmonary changes. EKG, no acute ST-T changes. WBC 11.7, hemoglobin 13.1, platelets 240. Sodium 125, potassium 3.8, chloride 94, bicarb 24, BUN 13, creatinine 0.95, glucose 119, magnesium 1.5. Liver function tests unremarkable. First troponin was 469.7 and second troponin was 304.6. ProBNP 1599, lipase 35. Arterial blood gas; pH 7.42, pCO2 36.4, pO2 92.9 with oxygen saturation 96.6%, on 32% FiO2. Impression: 1. Non-STEMI. 2. Severe COPD. 3. Hyponatremia. 4. Clostridium difficile colitis, recurrent, on chronic vancomycin suppressive therapy. 5. Anxiety. 6. Depression. 7. Benign prostatic hypertrophy with lower urinary tract symptoms. 8. Hypertension. 9. Type 2 diabetes mellitus. 10. Hyperlipidemia. 11. Diverticulosis. 12. Osteoarthritis, multiple sites. Plan: Admit the patient to hospital for further evaluation and management of this problem. The patient is clinically stable at this time and will be admitted to the hospital. He is on heparin drip, which was started in emergency room and we will continue that per protocol. I will go ahead and keep him n.p.o. Cardiology consultation was requested from our force variation equipment tender, Dr. Aguilar, and I did call Dr. Aguilar and discussed all the details with him and he will evaluate the patient today and then he will decide about cardiac cath procedure today, so until that decision and procedure is made, we will keep him n.p.o., give him IV fluid D5 normal saline at 40 cc/hour. For his COPD, he will continue nebulizer treatment, albuterol and Atrovent every 6 hours and we will continue his Levaquin 500 mg IV daily and Solu-Medrol 40 mg IV daily to be started today. For hyponatremia, he takes sodium chloride. We will go ahead and continue that. He takes paroxetine and Rexulti for his anxiety problem. We will continue that along with Ativan that he takes on a p.r.n. basis. For hyperlipidemia, we will go ahead and give him high dose statin therapy per order. The patient has indwelling Bentley catheter for his urinary retention due to benign prostatic hypertrophy and we will continue that. No need for further intervention on it. For diabetes, he does not take any medication and no need for any further intervention. Total time spent 85 minutes that includes review of history physical and discharge summary from last admission visit from 04/15/2024, review of current emergency room records, communication with ER physician, communication with force variation equipment tender, and review of prior cardiac workup including stress test from January of 2022 and performing today's evaluation and management. Details and plan of treatment discussed with the patient as well. I will see him tomorrow for followup. INDRA/MODL Voice ID: [id number] MTDLata
[2024-04-19] MEDS ORDERED: INFLUENZA VACCINE (for 6+ mo) 0.5 ML DOSE IMVAC ONE (12:00)
[2024-04-19] MEDS ORDERED: HEPARIN/D5W 25,000 UNIT/500 ML BAG IV SCH (14:00)
--- NOTE | 2024-04-19 16:33 | EKG ---
Test Date: 2024-04-19 Test Time: 03:03:59 Collar Setter Overlock: NINA MEASUREMENT RESULTS: Intervals: Rate: 90 WV: 160 QRSD: 88 QT: 382 QTc: 467 [place]: P: 42 WV: 160 QRS: -27 T: 53 INTERPRETIVE STATEMENTS: Normal sinus rhythm Normal ECG Compared to ECG 04/18/2024 23:25:20 Accelerated junctional rhythm no longer present Left-axis deviation no longer present Myocardial infarct finding no longer present Electronically Signed On 04-19-24 16:31:43 CDT by Demetrio Aguilar
--- NOTE | 2024-04-19 16:33 | EKG ---
Test Date: 2024-04-18 Test Time: 23:25:20 Edge Burnisher Uppers: NINA MEASUREMENT RESULTS: Intervals: Rate: 98 CT: QRSD: 84 QT: 348 QTc: 444 [place]: P: CT: QRS: -68 T: 59 INTERPRETIVE STATEMENTS: Accelerated Junctional rhythm Left axis deviation Inferior infarct, age undetermined Anteroseptal infarct, age undetermined Abnormal ECG Compared to ECG 04/15/2024 18:27:50 Accelerated junctional rhythm now present Sinus rhythm no longer present Myocardial infarct finding still present Electronically Signed On 04-19-24 16:31:51 CDT by Demetrio Aguilar
[2024-04-19] MEDS: SODIUM CHLORIDE 1 GM TAB PO SCH (16:49)
[2024-04-19] MEDS: ONDANSETRON 4 MG/2 ML VIAL IV PRN (17:15)
[2024-04-19] MEDS: METOPROLOL XL 50 MG TAB PO ONE (19:00)
[2024-04-19] MEDS: METOPROLOL XL 25 MG TAB PO ONE (19:57)
[2024-04-19] MEDS: ATORVASTATIN 40 MG TAB PO SCH (22:06)
[2024-04-19] MEDS: ENOXAPARIN 80 MG/0.8 ML SQ SCH (22:06)
[2024-04-19] MEDS: Levofloxacin500mg IV 500 MG/100 ML BAG IV SCH (22:09)
[2024-04-20 07:14] LABS: Anion Gap 8.6 mEq/L (5.0-15.0); Potassium 3.6 mEq/L (3.5-5.1)
[2024-04-20] MEDS: PARoxetine HCL 10 MG TAB PO SCH (08:53)
[2024-04-20] MEDS: ASPIRIN EC 81 MG TAB PO SCH (08:54)
[2024-04-20] MEDS: METOPROLOL XL 25 MG TAB PO SCH (08:54)
[2024-04-20] MEDS: METHYLPREDNISOLONE 40 MG INJ IV SCH (08:54)
[2024-04-20] MEDS: BUSPIRONE HCL 5 MG TABLET PO SCH (08:54)
[2024-04-20] MEDS: BREXPIPRAZOLE 0.5 MG PO SCH (09:00)
[2024-04-20] MEDS: ALPRAZOLAM 0.5 MG TABLET PO PRN (09:05)
--- NOTE | 2024-04-20 10:50 | PN ---
Date of Progress Note: 04/20/2024 Subjective: The patient was seen this morning for followup. No new complaints or problems reported b y the patient. He was lying in bed, not in distress. Denies any chest pain or shortness of breath. Objective: Vital Signs: Reviewed. HEENT: Unremarkable. Lungs: Clear to auscultation. Heart: Sounds normal. Abdomen: Soft. Bowel sounds normal. No guarding, rigidity, tenderness, distention. Extremities: No leg edema. Laboratory Data: Sodium 126, potassium 3.6, chloride 93, bicarb 28, BUN 13, creatinine 0.88, glucose 135, triglyceride 50, total cholesterol 145, LDL 22, HDL 113. Impression: 1.Non-ST elevation myocardial infarction. 2.Chronic obstructive pulmonary disease. 3.Type 2 diabetes mellitus. 4.Hypertension. 5.Hyperlipidemia. Plan: We will go ahead and continue Lovenox 80 mg subcutaneous injection every [address] Aguilar evaluated him yesterday and he is planning to do cardiac cath on Monday. For hyponatre eligio, we will continue his sodium chloride 1 g 2 times a day. We will continue current statin therapy . Continue current nebulizer treatment and steroids as well as antibiotic. Continue metoprolol. Th e patient has no problem with shortness of breath while at rest, but any activity causing him shortne ss of breath. We did talk about using home oxygen at nighttime as well as with activity during day t jonathan and he has portable oxygen concentrator at home, but he is not using it, so I have advised him th at upon returning home, he should use his oxygen at nighttime and as needed during daytime with activ ities. On basis of what he is describing, he probably has a portable oxygen concentrator, but does n ot have oxygen concentrator for home use, so we will look into that and assist him to set it up. I will see him tomorrow for followup. INDRA/MODL Voice ID: [id number] Report ID: [id number]
[2024-04-20] MEDS: MAGNES/ALUMIN/SIMET 30ML UCUP PO PRN (14:44)
[2024-04-20] MEDS: FLUTICASONE 50MCG NASAL SPRAY NAS SCH (16:14)
[2024-04-20] MEDS: MONTELUKAST 10 MG TAB PO SCH (20:11)
[2024-04-21 06:24] LABS: Absolute Lymphocytes (CBC) 1.9 K/uL (0.7-4.9); Absolute Monocytes 0.7 K/uL (0.1-1.3); Absolute Neutrophil 7.8 K/uL (1.8-8.0); Basophils % 0.1 % (0-1.3); Eosinophils % 0.1 % (0-4.4); Hematocrit 35.2 % (39.6-49.0); Hemoglobin 11.9 g/dL (13.6-17.9); Lymphocytes % 18.5 % (15.3-44.8); MCH 30.9 pg (27.0-35.0); MCHC 33.7 g/dL (32.0-36.0); MCV 91.6 fL (80-100); MPV 7.5 fL (7.6-11.3); Neutrophils % 74.3 % (41.7-73.7); Platelets 203 thou/uL (152-406); RBC Red Blood Cell Count 3.85 M/uL (4.33-5.43); Red Cell Distribution Width 14.3 % (12.1-15.2)
[2024-04-21 06:47] LABS: Anion Gap 10.3 mEq/L (5.0-15.0); Potassium 3.3 mEq/L (3.5-5.1); Thyroid Stimulating Hormone 2.14 uIU/mL (0.358-3.740)
[2024-04-21] MEDS: POTASSIUM CL SA 10 MEQ TAB PO ONE (08:43)
[2024-04-21] MEDS: NA CHLORIDE 0.9% 1,000 ML IV SCH (10:49)
--- NOTE | 2024-04-21 11:48 | PN ---
Date of Progress Note: 04/21/2024 Subjective: The patient was seen this morning for followup. Yesterday, nurse contacted me, informed the patient was having some vague chest pain complaint along with some nasal and sinus congestion. Flonase nasal spray was ordered at that time and stat EKG was done which did not show any acute abnor mality and a troponin level yesterday was 150, which is the lowest for this particular hospital admis allison. This morning when I saw him, he was getting his nebulizer treatment and reported that he did n ot sleep as well last night. He was having lot of cough and with coughing spell obviously, he gets i nto spells where he has lot of trouble breathing also. In fact, when I was visiting him, he had 1 of such episode and his face really turn extremely red and he was having obvious difficulty breathing a nd after a while he was able to calm down on back to his baseline. Objective: Vital Signs: Reviewed. HEENT: Unremarkable. Lungs: Bilateral good equal air entry with presence of wheezing, scattered in both lung contreras. Heart: Sounds normal. Abdomen: Soft. Bowel sounds normal. No guarding, rigidity, tenderness, distention. Extremities: No leg edema. Laboratory Data: White count 10.5, hemoglobin 11.9, platelets 203. Sodium 124, potassium 3.3, chlor bobby 91, bicarb 26, BUN 10, creatinine 0.70, glucose 159. TSH 2.140. His urine sodium was 17. Impression: 1.Vaa-WJ-qdreiiozl myocardial infarction. 2.Severe chronic obstructive pulmonary disease. 3.Hyponatremia. 4.Hypokalemia. Plan: We will go ahead and replace potassium per order. For hyponatremia, he is on sodium chloride 1 g 2 times a day and we will go ahead and start him on IV fluid normal saline at 75 cc/hour. We jenny l repeat chemistry test later this evening and follow up on it. He is on Solu-Medrol 40 mg IV daily. We will increase dose to twice a day. Continue Levaquin. Continue nebulizer treatment per order. We will add Claritin and benzonatate per order. The patient's cardiac enzyme yesterday was at the l owest level and I have discussed with him that his cardiac cath, which is tentatively scheduled for t omorrow that may not happen. Depending on his sodium level as well as his respiratory condition, dec ision will be made whether he can have cardiac cath tomorrow or at a later date and he understands th at and I did communicate all those details with cocoa room operator, Dr. Aguilar, who also agrees with that. I also communicated with the patient regarding Living Will and he informed me that in the event of c ardiopulmonary arrest he does not want any heroic measures like CPR, defibrillation, or ventilator patel pport and DNR order was confirmed with him and was entered in the chart as well. He has some paperwo rk at home, but does not have out of hospital DNR in place and we will consult social Service to assi st him with this paperwork to be completed. He has severe COPD, which I have informed him during thi s hospitalization as well as day prior to this hospital admission and informed him that if he does no t respond to the treatment, the only thing we can do for him is to go ahead and put him on hospice ca re for his severe COPD problem. INDRA/MODL Voice ID: [id number] Report ID: [id number]
[2024-04-21] MEDS ORDERED: BENZONATATE 100 MG CAP PO PRN (16:08)
[2024-04-21] MEDS: LORATADINE 10 MG TAB PO ONE (16:50)
[2024-04-21] MEDS: METHYLPREDNISOLONE 40 MG INJ IV SCH (20:15)
[2024-04-22 07:02] LABS: Magnesium 1.8 mg/dL (1.6-2.4)
[2024-04-22] MEDS: LORATADINE 10 MG TAB PO SCH (08:05)
[2024-04-22] MEDS: VANCOMYCIN HCL 125 MG CAPSULE PO SCH (08:05)
--- NOTE | 2024-04-22 10:28 | P.CNS ---
Date of Consult: 04/22/24 Chief Complaint: weakness History of Present Illness: Patient with PMH of HTN, presented with generalized weakness, found to have hyonatremia and NSTEMI, patient mention chest/epigastric pain that he can usually pin point and he think it is related to diet, he has advanced COPD. Allergies polio vaccine Allergy (Severe, Uncoded 11/16/23 20:18) Hives Home medications list reviewed: Yes Home Medications: Aspirin Chewable [Aspirin Chewable*] 81 mg PO DAILY 11/16/23 Bacillus Coagulans [Probiotics] 1 tab PO DAILY 11/16/23 Cyanocobalamin/Folic AC/Vit B6 [[place] Max Tablet] 1 tab PO DAILY 11/16/23 Finasteride [Proscar*] 5 mg PO DAILY 11/16/23 Fluticasone/Umeclidin/Vilanter [Trelegy Ellipta 100-62.5-25] 1 puff IH DAILY 11/16/23 Hydrocodone 5/APAP 325 [[place] 5/325*] 1 tab PO Q6HP PRN 11/16/23 Metoprolol Succinate [Toprol Xl*] 25 mg PO DAILY 11/16/23 Montelukast [Singulair*] 10 mg PO BEDTIME 11/16/23 Paroxetine HCl [Paxil] 40 mg PO DAILY 11/16/23 Tamsulosin [Flomax*] 1 cap PO DAILY 11/16/23 Vancomycin HCl 125 mg PO Q48H 11/16/23 Brexpiprazole [Rexulti] 0.5 mg PO DAILY 04/15/24 Buspirone HCl [Buspar] 5 mg PO BID 04/15/24 Ipratropium/Albuterol Sulfate [Iprat-Albut 0.5-3(2.5) mg/3 ml] 3 ml IH Q4HP PRN 04/15/24 Meloxicam 15 mg PO DAILYPRN PRN 04/15/24 Potassium Gluconate [Potassium] 99 mg PO DAILY 04/15/24 clonazePAM [Clonazepam] 1 mg PO DAILYPRN PRN 04/15/24 ALPRAZolam [Alprazolam] 0.33 tab PO TIDP PRN 04/16/24 Cyanocobalamin/Folic AC/Vit B6 [[place] Max Tablet] 1 tab PO DAILY 04/19/24 Levofloxacin [Levaquin] 500 mg PO DAILY 04/19/24 Pantoprazole Sodium 40 mg PO DAILY 04/19/24 Pantoprazole Sodium 40 mg PO DAILY 04/19/24 Prednisone [Sterapred Ds] 10 mg PO DAILY 04/19/24 Sodium Chloride Tab [Sodium Chloride*] 1 gm PO DAILY 04/19/24 - Past Medical/Surgical History Diabetic: No -: HTN -: anxiety -: COPD (home 02 prn) -: CDIFF -: natali knee surgery -: hernia repair -: R hip replacement -: L elbow surgery - Family History Mother Medical History: Lung disease, Other (see notes) Notes: smoker - Social History Smoking Status: Unknown if ever smoked Alcohol use: Yes CD- Drugs: No Caffeine use: No Review of Systems 10-point ROS is otherwise unremarkable Physical Examination Temp Pulse Resp BP Pulse Ox 98.1 F 79 20 156/74 H 99 04/22/24 07:38 04/22/24 08:05 04/22/24 07:38 04/22/24 08:05 04/22/24 07:38 General: Alert, In no apparent distress HEENT: Atraumatic, PERRLA, Mucous membr. moist/pink, EOMI, Sclerae nonicteric Neck: Supple, 2+ carotid pulse no bruit, No LAD, Without JVD or thyroid abnormality Respiratory: Clear to auscultation bilaterally, Normal air movement Cardiovascular: Regular rate/rhythm, Normal S1 S2 Gastrointestinal: Normal bowel sounds, No tenderness Musculoskeletal: No tenderness Integumentary: No rashes Neurological: Normal gait, Normal speech, Normal tone, Normal affect Lymphatics: No axilla or inguinal lymphadenopathy - Problems (1) NSTEMI (non-ST elevated myocardial infarction) Current Visit: Yes Status: Acute Plan: Troponin mild elevated and down trending, report chest/epigastric pain. NPO for coronary angiogram, labes looks better today continue ASA 81 mg daily continue Lipitor 40 mg daily (2) HTN (hypertension) Current Visit: Yes Status: Acute Plan: continue Toprol XL 25 mg daily (3) HLD (hyperlipidemia) Current Visit: Yes Status: Acute Plan: continue lipitor 40 mg daily
[2024-04-22] MEDS ORDERED: NA CHLORIDE 0.9% 500 ML ONE (11:07)
[2024-04-22] MEDS ORDERED: FENTANYL CITR 100 MCG/2 ML ONE (11:44)
[2024-04-22] MEDS ORDERED: MIDAZOLAM HCL 2 MG/2 ML INJ ONE (11:45)
[2024-04-22] MEDS ORDERED: HEPA 1000U/500MLS 2,000 UNIT/1,000 ML BAG IV ONE (11:48)
[2024-04-22] MEDS ORDERED: NITROGLYCERIN/D5W 50 MG/250 ML BTL IV ONE (11:49)
[2024-04-22] MEDS ORDERED: HEPARIN 10,000 UNIT/10 ML VIAL IV ONE (11:50)
[2024-04-22] MEDS ORDERED: LIDOCAINE 1% 20 ML MDV ONE (11:50)
[2024-04-22] MEDS ORDERED: HEPARIN 5000 UNIT/ML 1 ML VIAL ONE (11:50)
[2024-04-22] MEDS ORDERED: ATROPINE SULF 1 MG/10 ML SYR IV ONE (11:50)
--- NOTE | 2024-04-22 11:57 | EKG ---
Test Date: 2024-04-20 Test Time: 15:02:22 Inspector Tester Sorter: KIANNA MEASUREMENT RESULTS: Intervals: Rate: 78 MA: 178 QRSD: 90 QT: 386 QTc: 440 [place]: P: 63 MA: 178 QRS: -21 T: 30 INTERPRETIVE STATEMENTS: Normal sinus rhythm Normal ECG Compared to ECG 04/19/2024 03:03:59 No significant changes Electronically Signed On 04-22-24 11:53:23 CDT by Ronald Martinez
--- NOTE | 2024-04-22 11:57 | EKG ---
Test Date: 2024-04-20 Test Time: 15:05:22 Hot End Operator: KIANNA MEASUREMENT RESULTS: Intervals: Rate: 77 NE: 124 QRSD: 88 QT: 374 QTc: 423 [place]: P: 50 NE: 124 QRS: -14 T: 33 INTERPRETIVE STATEMENTS: Normal sinus rhythm Normal ECG Compared to ECG 04/20/2024 15:02:22 No significant changes Electronically Signed On 04-22-24 11:53:19 CDT by Ronald Martinez
--- NOTE | 2024-04-22 12:44 | ECHO ---
HEIGHT: 5 ft 10 in WEIGHT: 196 lb 0 oz DATE OF STUDY: 04/22/[address]: Jack Alarcon MD 2-DIMENSIONAL: YES M.MODE: YES DOPPLER: YES COLOR FLOW: YES TDS: PORTABLE: YES DEFINITY: BUBBLE STUDY: DIAGNOSIS: NON ST ELEVATION MYOCARDIAL INFARCTION CARDIAC HISTORY: CATHERIZATION: SURGERY: PROSTHETIC VALVE: PACEMAKER: MEASUREMENTS (cm) DIASTOLIC (NORMALS) SYSTOLIC (NORMALS) IVSd 1.2 (0.6-1.2) LA Diam 5.6 (1.9-4.0) LVEF 60-65% LVIDd 4.8 (3.5-5.7) LVIDs 3.1 (2.0-3.5) %FS 34% LVPWd 1.4 (0.6-1.2) Ao Diam 3.3 (2.0-3.7) 2 DIMENSIONAL ASSESSMENT: RIGHT ATRIUM: NORMAL LEFT ATRIUM: NORMAL RIGHT VENTRICLE: NORMAL LEFT VENTRICLE: MILD LEFT VENTRICULAR HYPERTROPHY TRICUSPID VALVE: TRACE TRICUSPID REGURGITATION MITRAL VALVE: MILD MITRAL REGURGITATION PULMONIC VALVE: NORMAL AORTIC VALVE: MILD AORTIC STENOSIS PERICARDIAL EFFUSION: NONE AORTIC ROOT: NORMAL LEFT VENTRICULAR WALL MOTION: NORMAL DOPPLER/COLOR FLOW: DIASTOLIC DYSFUNCTION COMMENTS: 1. NORMAL LEFT VENTRICULAR SYSTOLIC FUNCTION, EJECTION FRACTION 60-65%, NORMAL WALL MOTION 2. DIASTOLIC DYSFUNCTION 3. MILD MITRAL REGURGITATION, MILD AORTIC STENOSIS 4. MODERATE PULMONARY HYPERTENSION (RIGHT VENTRICULAR SYSTOLIC PRESSURE 50-55 mmHg) 5. NORMAL FILLING PRESSURE (RIGHT ATRIAL PRESSURE 0-5 mmHg) TECHNOLOGIST: [facility]
[2024-04-22 12:53] VITALS: TEMP 97.4
[2024-04-22 13:55] VITALS: O2SAT 99
[2024-04-22 14:22] VITALS: BP 163/97
[2024-04-22] MEDS: HYDRALAZINE HCL 20 MG/ML VIAL IV ONE (16:44)
--- NOTE | 2024-04-22 20:33 | DS ---
Date of Discharge: 04/22/2024 Disposition: Transferred via ground ambulance to [facility] for higher level of care. Physical Examination: HEENT: Unremarkable. Lungs: Clear to auscultation. Heart: Sounds normal. Abdomen: Soft. Bowel sounds normal. No guarding, rigidity, tenderness. Extremities: No leg edema. Discharge Medications/instructions: See copy of transfer MAR for details. Hospital Course: This is a 78-year-old pleasant male patient, who was admitted to hospital with ches t pain and shortness of breath. Please see dictated H and P for more information. After the patient was evaluated in the emergency room, he was admitted to the hospital with non-STEMI. He has severe COPD, and his COPD was treated during this hospitalization with oxygen nebulizer treatment and IV tiffany roid with Solu-Medrol 40 mg IV daily, which was continued after initial dose of 125 mg IV given in th e emergency room. Over the weekend which was yesterday when he had more trouble breathing, we increa sed his Solu-Medrol to 40 mg twice a day. He also had hyponatremia problem with sodium level anywher e between 124 to 126 range and salt tablet was given 1 g 2 times a day, which has not helped so far, but it was just also started recently and urine sodium was low at 17, so yesterday we started him on IV fluid normal saline at 75 cc/hour and this morning, sodium level has improved to 129. This mornin g, his respiratory status was lot better. His wheezing that we noted yesterday has completely resolv ed. He was not in any respiratory distress, so we were able to go ahead and send him to cardiac cath today and after cardiac cath was done, Dr. Martinez called and informed me that the patient has severe triple-vessel disease and he is recommending the patient to be transferred to higher level of care f or evaluation of bypass surgery and after all arrangements completed, the patient was transferred in stable condition and the patient was made aware of this findings and plan of treatment by cardiologis t after the cardiac cath was done today. Final Diagnoses: 1.Non-STEMI. 2.Coronary artery disease. 3.Severe COPD. 4.Hyponatremia. 5.Clostridium difficile colitis, recurrent, on chronic vancomycin suppressive therapy. 6.Anxiety. 7.Depression. 8.Benign prostatic hypertrophy with lower urinary tract symptoms. 9.Hypertension. 10.Type 2 diabetes mellitus. 11.Hyperlipidemia. 12.Diverticulosis. 13.Osteoarthritis, multiple sites. Laboratory Data: Labs done during this hospitalization upon admission, white count 11.7, hemoglobin 13.1, platelets 243. Yesterday, white count 10.5, hemoglobin 11.9, platelets 203. Last chemistry to day, sodium 129, potassium 4, chloride 97, bicarb 25, BUN 8, creatinine 0.85, glucose 251 which is du e to IV steroid use, and magnesium 1.8. Upon admission, sodium level was 125. Troponin 469.7, secon d troponin 304.6, third troponin 268.7, and fourth troponin 150. Total time spent today 45 minutes. INDRA/MODL Voice ID: [id number] Report ID: [id number]
--- NOTE | 2024-04-22 23:48 | OP ---
Date of Procedure: 04/22/2024 Surgeon: Ronald Martinez Indication For Procedure: [id number] UT. Complications: None. Estimated Blood Loss: Less than 50 cc. Access: Right radial, closed by TR band. Sedation: X20 minutes with 2 of Versed and 50 of fentanyl. Description Of Procedure: After risks, benefits, and alternatives were explained to the patient, the patient agreed to proceed with the procedure and signed informed consent. The patient was brought [facility] to the micro lab analyst, prepped and draped in a sterile fashion. Time-out was performed. Sedation was administered. Next, the right radial access was obtained and [place] 4 catheter was advanced over the J-wire into the LV cavity. LVEDP was obtained. Pullback did not show any gradient. Same catheter w as used for selective angiogram of the left and right coronary systems. At the end of procedure, cat heter was removed and sheath was removed. TR band was applied. Hemostasis achieved. The patient wa s moved back to Recovery in stable condition. Findings: 1.Left main: Large, distal 50% to 60% disease. 2.LAD: Proximal mild luminal irregularities and mid 90% to 95% calcified disease. Then, mid to dis mague mild luminal irregularities. 3.Diagonal: Proximal 90% disease calcified, again mild luminal irregularities. 4.Left circumflex: Proximal 100% occluded. Gets dxcg-jg-gefy collaterals into the OM, that is like a 2.5 mm vessel. 5.RCA: Proximal 100% occluded with exth-yy-vzufi collaterals into RPDA, that is a 2.25 mm vessel. 6.Left subclavian artery/CLARKE: Patent. 7.LVEDP: 18 mmHg. 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 Plan is to transfer for inpatient CABG evaluation. ARMSTRONG/JUDY Voice ID: [id number] Report ID: [id number]
--- NOTE | 2024-04-26 21:48 | OP ---
Date of Procedure: 04/22/2024 Surgeon: Ronald Martinez Procedures Performed: 1.Left heart catheterization. 2.Selective coronary angiogram. Complications: None. Estimated Blood Loss: Less than 50 cc. Access: Right radial, closed by TR band. Sedation Time: 20 minutes with 1 of Versed and 25 of fentanyl. Description Of Procedure: After risks, benefits, and alternatives were explained to patient, patient agreed to proceed with the procedure and signed informed consent. The patient was brought back to [facility] cath lab nurse, prepped and draped in a sterile fashion. Time-out was performed. Sedation was administ ered. Next, right radial access was obtained. [place] 4 catheter was advanced over J-wire to the LV c avity. LVEDP was obtained. Pullback did not show any gradient. Same catheter was used for selectiv e angiogram of the left and right coronary systems. At the end of procedure, catheter was removed. Sheath was removed. TR band was applied and hemostasis was achieved. Findings: 1.Left main: Distal 50% to 60% disease. 2.LAD: Mid 90% disease. Mild luminal irregularities. 3.Diagonal: Proximal 90% diffuse disease and mild luminal irregularities. 4.Left circ: Proximal 100% occluded. 5.OM: Gets left to left collaterals. 6.RCA: Proximal occluded with mayv-so-jqfva collaterals into RPDA. 7.LVEDP 18 mmHg. Assessment/plan: Significant left anterior descending, diagonal, left circumflex, right coronary art kirk, and distal left main disease. The plan will be to transfer for inpatient coronary artery bypass graft surgery. PATTI/JUDY Voice ID: [id number] Report ID: [id number]
== END 2024-04-22 16:53 | disposition short-term general hospital (02) | DRG 281 ==
LOC: ER 23:23 → ERHOLD 04-19 03:24 → 4TH 04-19 12:30
PROVIDERS: ADMIT Internal Medicine; ATTEND Internal Medicine
PROC: 4A033R1 Measurement of Arterial Saturation, Peripheral, Percutaneous Approach (ICD-10-PCS; principal; 2024-04-19)
PROC: 4A023N7 Measurement of Cardiac Sampling and Pressure, Left Heart, Percutaneous Approach (ICD-10-PCS; 2024-04-22)
PROC: B2111ZZ Fluoroscopy of Multiple Coronary Arteries using Low Osmolar Contrast (ICD-10-PCS; 2024-04-22)
DX: I21.4 Non-ST elevation (NSTEMI) myocardial infarction (principal); A04.71 Enterocolitis due to Clostridium difficile, recurrent; T83.511A Infection and inflammatory reaction due to indwelling urethral catheter, initial encounter; E87.1 Hypo-osmolality and hyponatremia; J44.1 Chronic obstructive pulmonary disease with (acute) exacerbation; N39.0 Urinary tract infection, site not specified; E78.5 Hyperlipidemia, unspecified; I10 Essential (primary) hypertension; F41.9 Anxiety disorder, unspecified; F32.A Depression, unspecified; E11.9 Type 2 diabetes mellitus without complications; M19.09 Primary osteoarthritis, other specified site; N40.1 Benign prostatic hyperplasia with lower urinary tract symptoms; K57.30 Diverticulosis of large intestine without perforation or abscess without bleeding; I25.10 Atherosclerotic heart disease of native coronary artery without angina pectoris; R33.8 Other retention of urine; Z66 Do not resuscitate; Z88.7 Allergy status to serum and vaccine; Z96.641 Presence of right artificial hip joint; Z79.899 Other long term (current) drug therapy; Z87.891 Personal history of nicotine dependence
CPT/HCPCS: 36415; 36600; 51702; 71045; 76937; 80048; 80061; 80076; 81001; 82550; 82805; 82947; 83690; 83735; 83880; 84300; 84443; 84484; 85025; 85379; 85610; 85730; 87040; 87077; 87086; 87088; 87186; 93005; 93306; 93458; 94640; 99152; 99153; 99285; C1893; J0360; J0461; J0696; J1644; J2001; J2250; J2405; J2919; J3010; J7030; J7040; J7050; J7613; J7644; J7799; Q9966

== ENCOUNTER 2024-05-03 00:08 | Emergency (ER) | payer OTHER ==
[2024-05-03] MEDS ORDERED: ONDANSETRON 4 MG/2 ML VIAL ONE (00:29)
[2024-05-03] MEDS ORDERED: ALBUTEROL 2.5 MG/3 ML NEB SOL ONE (00:29)
[2024-05-03] MEDS ORDERED: METHYLPREDNISOLONE 125 MG INJ ONE (00:29)
[2024-05-03] MEDS ORDERED: LORazepam 2 MG/ML VIAL ONE (00:30)
[2024-05-03 00:59] LABS: Absolute Eosinophils 0.1 K/uL (0-0.5); Absolute Lymphocytes (CBC) 1.2 K/uL (0.7-4.9); Absolute Monocytes 0.9 K/uL (0.1-1.3); Absolute Neutrophil 10.4 K/uL (1.8-8.0); Eosinophils % 0.8 % (0-4.4); Hematocrit 22.9 % (39.6-49.0); Hemoglobin 7.8 g/dL (13.6-17.9); Lymphocytes % 9.3 % (15.3-44.8); MCH 31.2 pg (27.0-35.0); MCHC 34.1 g/dL (32.0-36.0); MCV 91.7 fL (80-100); MPV 7.1 fL (7.6-11.3); Monocytes % 7.2 % (3.3-12.3); Neutrophils % 82.7 % (41.7-73.7); Platelets 203 thou/uL (152-406); RBC Red Blood Cell Count 2.49 M/uL (4.33-5.43); Red Cell Distribution Width 14.5 % (12.1-15.2)
[2024-05-03 01:00] LABS: PT Prothrombin Time 11.1 SECONDS (9.4-12.5); Protime INR 0.99
[2024-05-03 01:14] LABS: Albumin 2.9 g/dL (3.4-5.0); Anion Gap 12.5 mEq/L (5.0-15.0); Bilirubin Direct 0.2 mg/dL (0-0.2); Bilirubin Indirect, Calculated 0.5 mg/dL (0.2-0.8); Bilirubin Total 0.7 mg/dL (0.2-1.0); Globulin 2.8 g/dL (2.3-3.5); Magnesium 1.8 mg/dL (1.6-2.4); Potassium 3.5 mEq/L (3.5-5.1); Protein, Total 5.7 g/dL (6.4-8.2)
[2024-05-03 01:17] LABS: Troponin High Sensitivity 381.6 pg/mL (<58.9)
--- NOTE | 2024-05-03 03:54 | ER ---
Nurse's Notes [facility] Name: Shawn Gant Age: 78 yrs Sex: Male : 1945 Arrival Date: 05/03/2024 Time: 00:08 Bed 5 Private MD: Diagnosis: NSTEMI, COPD exacerbation Presentation: 05/03 00:10 Chief complaint: EMS states: chest pain and shortness of breath that started prior to cp4 arrival. 00:10 Coronavirus screen: Client denies travel out of the [place] in the last 14 days. At this cp4 time, the client does not indicate any symptoms associated with coronavirus-19. Ebola Screen: Patient negative for fever greater than or equal to 101.5 degrees Fahrenheit, and additional compatible Ebola Virus Disease symptoms Patient denies exposure to infectious person. Patient denies travel to an Ebola-affected area in the 21 days before illness onset. No symptoms or risks identified at this time. Initial Sepsis Screen: Does the patient meet any 2 criteria? No. Patient's initial sepsis screen is negative. Does the patient have a suspected source of infection? No. Patient's initial sepsis screen is negative. Risk Assessment: Do you want to hurt yourself or someone else? Patient reports no desire to harm self or others. Onset of symptoms was May 03, 2024. 00:10 Method Of Arrival: EMS: [place] [id number] 00:10 Acuity: MARIO 3 cp4 Triage Assessment: 00:53 General: Appears in no apparent distress. uncomfortable, Behavior is calm, cooperative, cp4 appropriate for age. Pain: Complains of pain in chest. EENT: No signs and/or symptoms were reported regarding the EENT system. Neuro: Level of Consciousness is awake, alert, obeys commands, Oriented to person, place, time, situation. Cardiovascular: Reports chest pain, Patient's skin is warm and dry. Rhythm is sinus rhythm. Respiratory: Airway is patent Respiratory effort is even, unlabored. GI: No signs and/or symptoms were reported involving the gastrointestinal system. : No signs and/or symptoms were reported regarding the genitourinary system. Derm: No signs and/or symptoms reported regarding the dermatologic system. Musculoskeletal: No signs and/or symptoms reported regarding the musculoskeletal system. Historical: - Allergies: 00:53 Polio Virus Vaccines; cp4 - Home Meds: 00:53 alprazolam 2 mg Oral tablet [Active]; buspirone 5 mg Oral tablet [Active]; duloxetine cp4 30 mg Oral capsule [Active]; finasteride 5 mg Oral tablet [Active]; fluticasone furoate-vilanterol 100-25 mcg/dose inhalation Blister [Active]; meloxicam 15 mg Oral tablet [Active]; metoprolol tartrate 25 mg Oral tablet [Active]; montelukast 10 mg Oral tablet [Active]; tamsulosin 0.4 mg Oral capsule [Active]; - PMHx: 00:53 borderline DM; COPD; History of urinary tract infection; Hypertension; cp4 - PSHx: 00:53 multiple ortho; cp4 - Immunization history:: Adult Immunizations up to date. - Infectious Disease History:: Denies. - Social history:: Smoking status: Patient denies any tobacco usage or history of. - Family history:: not pertinent. Screenin:57 [facility] ED Fall Risk Assessment (Adult) History of falling in the last 3 months, cp4 including since admission No falls in past 3 months (0 pts) Confusion or Disorientation No (0 pts) Intoxicated or Sedated No (0 pts) Impaired Gait No (0 pts) Mobility Assist Device Used No (0 pt) Altered Elimination No (0 pt) Score/Fall Risk Level 0 - 2 = Low Risk Oriented to surroundings, Maintained a safe environment, Assessed \T\ reinforced patient's understanding of fall precautions, Hourly rounding (assess needs \T\ fall precautionary measures) done. Abuse screen: Denies threats or abuse. Nutritional screening: No deficits noted. Tuberculosis screening: No symptoms or risk factors identified. Assessment: 00:57 Reassessment: No changes from previously documented assessment. cp4 02:15 Reassessment: Patient and/or family updated on plan of care and expected duration. Pain br2 level reassessed. Patient is alert, oriented x 3, equal unlabored respirations, skin warm/dry/pink. patient sitting on the foot of bed with leg dangling, pulled iv out and n/c not in place. Pt has blood all over bed and gown and is confused. pt placed back into the bed and cleaned up. Vital Signs: 00:10 BP 152 / 86; Pulse 87; Resp 18; Temp 98.1; Pulse Ox 100% on 2 lpm NC; cp4 01:00 BP 138 / 75; Pulse 87; Resp 21; Pulse Ox 100% on 3 lpm NC; br2 01:30 BP 131 / 72; Pulse 85; Resp 21 S; Pulse Ox 100% on 2 lpm NC; br2 02:15 BP 156 / 92; Pulse 127; Resp 22 S; Pulse Ox 75% on R/A; br2 03:00 BP 128 / 88; Pulse 89; Resp 22; Pulse Ox 99% on 3 lpm NC; br2 04:00 BP 114 / 71; Pulse 83; Resp 18; Pulse Ox 100% on 2 lpm NC; cp4 04:45 BP 114 / 71; Pulse 83; Resp 18; Pulse Ox 100% on 2 lpm NC; cp4 ED Course: 00:09 Patient arrived in ED. rv1 00:10 Brandon Chiang MD is Attending Physician. sp4 00:36 XRAY Chest (1 view) In Process Unspecified. EDMS 00:41 Lipase Sent. br2 00:41 Basic Metabolic Panel Sent. br2 00:41 CBC with Diff Sent. br2 00:41 LFT's Sent. br2 00:41 Magnesium Sent. br2 00:41 NT PRO-BNP Sent. br2 00:41 PT-INR Sent. br2 00:42 Troponin HS Sent. br2 00:53 Triage completed. cp4 00:57 No provider procedures requiring assistance completed. Maintain EMS IV. Dressing cp4 intact. Good blood return noted. Site clean \T\ dry. Gauge \T\ site: 20 RFA. Flushed with 10 mL NS IV is patent, is intact, Flushed. 00:57 Arm band placed on right wrist. Patient placed in an exam room, on a stretcher. cp4 00:57 Bed in low position. Call light in reach. Side rails up X 1. cp4 01:01 Dee Dee Philip is Primary Nurse. cp4 01:50 Bentley cath removed intact, balloon deflated. cp4 01:50 Bentley cath inserted, using sterile technique, 16 Fr., by ne, balloon inflated, to cp4 gravity drainage. 02:50 Inserted saline lock: 20 gauge in right antecubital area, using aseptic technique. sa1 Flushed with 10 mL NS. 02:53 Inserted saline lock:. br2 05:07 Inserted Patient transferred, IV remains in place. cp4 05:08 Provided Education on: transfer. cp4 Administered Medications: 00:39 Drug: Albuterol Inhalation 2.5 mg Inhalation once Route: Inhalation; br2 01:10 Follow up: Response: No adverse reaction cp4 00:40 Drug: MethylPrednisoLONE IVP 125 mg IVP once Route: IVP; Site: right antecubital; br2 01:10 Follow up: Response: No adverse reaction cp4 00:40 Drug: Ativan IVP 1 mg IVP once Route: IVP; Site: right antecubital; br2 01:10 Follow up: Response: No adverse reaction cp4 00:41 Drug: Ondansetron IVP 4 mg IVP once; over 2 minutes Route: IVP; Site: right antecubital;br2 01:10 Follow up: Response: No adverse reaction cp4 Medication: 00:57 VIS not applicable for this client. cp4 Outcome: 03:54 ER care complete, transfer ordered by . sp4 05:07 Transferred by ground EMS Transfer form completed. X-rays sent w/ patient. Note: [facility] cp4 Dacia 05:07 Condition: stable 05:07 Instructed on the need for transfer, 05:08 Patient left the ED. cp4 Signatures: Dispatcher [employer] Zoë Giles Sergey, MD MD sp4 Dee Dee Philip cp4 Sultan Lona sa1 Penny De Leon RN RN br2 Corrections: (The following items were deleted from the chart) 04:48 04:00 BP 121 / 73; Pulse 84bpm; Resp 18bpm; Pulse Ox 100% 2 lpm Nasal Cannula; cp4 cp4
--- NOTE | 2024-05-03 03:54 | EDPHYS ---
Physician Documentation [facility] Name: Shawn Gant Age: 78 yrs Sex: Male : 1945 Arrival Date: 05/03/2024 Time: 00:08 Bed 5 Private MD: ED Physician Brandon Chiang HPI: 05/03 00:10 This 78 yrs old Male presents to ER via Unassigned with complaints of chest sp4 pain, dyspnea . 04:44 78-year-old male with history of diabetes, COPD, UTIs, indwelling Bentley catheter, sp4 hypertension, also history of coronary artery disease presents with EMS for acute chest pain and shortness of breath.. Patient states he was released from [facility] this morning. Patient was treated for coronary artery disease and had left heart cath via right radial artery approach. Patient states developed worsening chest pain after he was released from the hospital.. Historical: - Allergies: 00:53 Polio Virus Vaccines; cp4 - Home Meds: 00:53 alprazolam 2 mg Oral tablet [Active]; buspirone 5 mg Oral tablet [Active]; duloxetine cp4 30 mg Oral capsule [Active]; finasteride 5 mg Oral tablet [Active]; fluticasone furoate-vilanterol 100-25 mcg/dose inhalation Blister [Active]; meloxicam 15 mg Oral tablet [Active]; metoprolol tartrate 25 mg Oral tablet [Active]; montelukast 10 mg Oral tablet [Active]; tamsulosin 0.4 mg Oral capsule [Active]; - PMHx: 00:53 borderline DM; COPD; History of urinary tract infection; Hypertension; cp4 - PSHx: 00:53 multiple ortho; cp4 - Immunization history:: Adult Immunizations up to date. - Infectious Disease History:: Denies. - Social history:: Smoking status: Patient denies any tobacco usage or history of. - Family history:: not pertinent. ROS: 04:45 Constitutional: Negative for fever, chills, and weight loss, chest pain, positive sp4 shortness of breath 04:45 All other systems are negative, Exam: 04:45 Constitutional: This is a well developed, well nourished patient who is awake, alert, sp4 acutely agitated male, moderate anxiety, signs of physical debility, indwelling Bentley catheter on arrival, multiple areas of bluish hematomas subcutaneously to lower abdomen and in the right thigh Head/Face: Normocephalic, atraumatic. Eyes: Pupils equal round and reactive to light, extra-ocular motions intact. Lids and lashes normal. Conjunctiva and sclera are not injected. Cornea within normal limits. Periorbital areas with no swelling, redness, or edema. ENT: Nares patent. No nasal discharge, no septal abnormalities noted. Tympanic membranes are normal and external auditory canals are clear. Oropharynx with no redness, swelling, or masses, exudates, or evidence of obstruction, uvula midline. Mucous membranes moist. Neck: Trachea midline, no thyromegaly or masses palpated, and no cervical lymphadenopathy. Supple, full range of motion without nuchal rigidity, or vertebral point tenderness. Chest/axilla: Normal chest wall appearance and motion. Nontender with no deformity. No lesions are appreciated. Cardiovascular: Regular rate and rhythm with a normal S1 and S2. No gallops, murmurs, or rubs. Normal PMI, no JVD. No pulse deficits. Respiratory: Lungs have equal breath sounds bilaterally, clear to auscultation and percussion. No rales, rhonchi or wheezes noted. No increased work of breathing, no retractions or nasal flaring. Abdomen/GI: Soft, with normal bowel sounds. No distension or tympany. No guarding or rebound. No evidence of tenderness throughout. Back: No spinal tenderness. No costovertebral tenderness. Skin: Warm, dry with normal turgor. Normal color with no rashes, no lesions, and no evidence of cellulitis. MS/ Extremity: Pulses equal, no cyanosis. Neurovascular intact. Full, normal range of motion. Neuro: Awake and alert, GCS 15, oriented to person, place, time, and situation. Cranial nerves II-XII grossly intact. Motor strength 5/5 in all extremities. Sensory grossly intact. Psych: Awake, alert, with orientation to person, place and time. Behavior - anxious and acutely agitated 04:45 ECG was reviewed by the Attending Physician. EKG at 0040 normal sinus rhythm rate 94, no ST elevation or depression, muscle tremor artifact Vital Signs: 00:10 BP 152 / 86; Pulse 87; Resp 18; Temp 98.1; Pulse Ox 100% on 2 lpm NC; cp4 01:00 BP 138 / 75; Pulse 87; Resp 21; Pulse Ox 100% on 3 lpm NC; br2 01:30 BP 131 / 72; Pulse 85; Resp 21 S; Pulse Ox 100% on 2 lpm NC; br2 02:15 BP 156 / 92; Pulse 127; Resp 22 S; Pulse Ox 75% on R/A; br2 03:00 BP 128 / 88; Pulse 89; Resp 22; Pulse Ox 99% on 3 lpm NC; br2 04:00 BP 114 / 71; Pulse 83; Resp 18; Pulse Ox 100% on 2 lpm NC; cp4 04:45 BP 114 / 71; Pulse 83; Resp 18; Pulse Ox 100% on 2 lpm NC; cp4 MDM: 00:13 Medical Screening Exam initiated sp4 03:08 ED course: EXAM: XR Chest, 1 View CLINICAL HISTORY: The patient is 78 years old and is sp4 Male; CHEST PAIN TECHNIQUE: Frontal view of the chest. COMPARISON: XR Chest dated April 18 2024 FINDINGS: LUNGS: The lungs are hyperinflated. Right basilar atelectasis/scarring is noted. There is no lobar consolidation. PLEURAL SPACE: Unremarkable. No pneumothorax. HEART: Unremarkable. No cardiomegaly. MEDIASTINUM: Unremarkable. Normal mediastinal contour. BONES/JOINTS: Multiple healed left-sided rib fractures are present. Degenerative change of the spine is noted. There is no acute fracture. VASCULATURE: Atherosclerosis of the aorta is present. UPPER ABDOMEN: Unremarkable as visualized. IMPRESSION: No acute cardiopulmonary process.. 04:48 Differential diagnosis: acute myocardial infarction, acute pericarditis, anxiety, chest sp4 wall pain, esophagitis, gastritis. HEART Score: History: Moderately Suspicious (1), ECG: Normal (0), Age: > or = 65 years (2), Risk Factors: > or = 3 Risk factors for atherosclerotic disease (2), Troponin: > or = 3 x Normal Limit (2), Total Score = 7. The patient was not given aspirin in the Emergency Department. Administered by EMS. Data reviewed: vital signs. Data reviewed: nurses notes, EMS record, old medical records, lab test result(s), EKG, radiologic studies, plain films. ED course: Patient is stable for transfer to [facility]. [facility] declined secondary to capacity. Patient was accepted at [facility] facility. 05/03 00:10 Order name: Basic Metabolic Panel; Complete Time: 02:07 sp4 05/03 00:10 Order name: CBC with Diff; Complete Time: 02:07 sp4 05/03 00:10 Order name: LFT's; Complete Time: 02:07 sp4 05/03 00:10 Order name: Magnesium; Complete Time: 02:07 4 05/03 00:10 Order name: NT PRO-BNP; Complete Time: 02:07 sp4 05/03 00:10 Order name: PT-INR; Complete Time: 02:07 4 05/03 00:10 Order name: Troponin HS; Complete Time: 02:07 4 05/03 00:11 Order name: Urinalysis W/Microscopic sp4 05/03 00:12 Order name: Lipase; Complete Time: 02:07 4 05/03 03:56 Order name: Type And Screen 4 05/03 00:10 Order name: XRAY Chest (1 view) 4 05/03 00:10 Order name: EKG; Complete Time: 00:11 sp4 05/03 00:10 Order name: Cardiac monitoring; Complete Time: 00:41 sp4 05/03 00:10 Order name: EKG - Nurse/Tech; Complete Time: 00: sp4 05/03 00:10 Order name: IV Saline Lock; Complete Time: 00: sp4 05/03 00:10 Order name: Labs collected and sent; Complete Time: 00: sp4 05/03 00:10 Order name: O2 Per Protocol; Complete Time: 00: sp4 05/03 00:10 Order name: O2 Sat Monitoring; Complete Time: 00: sp4 05/03 00:11 Order name: Bentley; Complete Time: 01:53 sp4 EC:45 Rate is 94 beats/min. Rhythm is regular, Normal Sinus Rhythm. QRS [place] is Normal. CO sp4 interval is normal. QRS interval is normal. QT interval is normal. No Q waves. T waves are Normal. No ST changes noted. Clinical impression: No evidence of ischemia. Interpreted by me. Reviewed by me. Administered Medications: 00:39 Drug: Albuterol Inhalation 2.5 mg Inhalation once Route: Inhalation; br2 01:10 Follow up: Response: No adverse reaction cp4 00:40 Drug: MethylPrednisoLONE IVP 125 mg IVP once Route: IVP; Site: right antecubital; br2 01:10 Follow up: Response: No adverse reaction cp4 00:40 Drug: Ativan IVP 1 mg IVP once Route: IVP; Site: right antecubital; br2 01:10 Follow up: Response: No adverse reaction cp4 00:41 Drug: Ondansetron IVP 4 mg IVP once; over 2 minutes Route: IVP; Site: right antecubital;br2 01:10 Follow up: Response: No adverse reaction cp4 Disposition Summary: 05/03/24 03:54 Transfer Ordered Notes: Transfer Location: [facility] sp4 Reason: Higher level of care sp4 Condition: Stable sp4 Problem: new sp4 Symptoms: have improved sp4 Accepting Physician: [facility] attending (05/03/24 05:08) cp4 Diagnosis - NSTEMI, COPD exacerbation sp4 Forms: - Medication Reconciliation Form sp4 - SBAR form sp4 Signatures: Dispatcher [employer] Brandon Baer MD MD sp4 Dee Dee Philip cp4 Penny De Leon RN RN br2 Corrections: (The following items were deleted from the chart) 05:08 03:54 [facility] attending MD yates cp4
[2024-05-03 05:28] LABS: Specific Gravity 1.011 (1.005-1.030); Sqamous Epithelial <5 /HPF (None Seen); Urine Bacteria None Seen /HPF (<20); Urine Bilirubin NEGATIVE (Negative); Urine Blood Trace (Negative); Urine Clarity Clear (Clear); Urine Color Light-Yellow (Yellow); Urine Crystals Unidentified Few /HPF (None Seen); Urine Culture Reflex Order NOT NEEDED; Urine Glucose 1+ (Negative); Urine Ketones 1+ (Negative); Urine Micro Reflex YN NO BILL MICROSCOPIC; Urine Mucus Slight /HPF (None Seen); Urine Nitrite NEGATIVE (Negative); Urine Protein 1+ (Negative); Urine RBC <5 /HPF (None Seen); Urine Urobilinogen Normal (Normal); Urine WBC <5 /HPF (<5)
--- NOTE | 2024-05-03 05:38 | RAD REPORT ---
EXAM: XR Chest, 1 View CLINICAL HISTORY: The patient is 78 years old and is Male; CHEST PAIN TECHNIQUE: Frontal view of the chest. COMPARISON: XR Chest dated April 18 2024 FINDINGS: LUNGS: The lungs are hyperinflated. Right basilar atelectasis/scarring is noted. There is no loba r consolidation. PLEURAL SPACE: Unremarkable. No pneumothorax. HEART: Unremarkable. No cardiomegaly. MEDIASTINUM: Unremarkable. Normal mediastinal contour. BONES/JOINTS: Multiple healed left-sided rib fractures are present. Degenerative change of the sp ine is noted. There is no acute fracture. VASCULATURE: Atherosclerosis of the aorta is present. UPPER ABDOMEN: Unremarkable as visualized. IMPRESSION: No acute cardiopulmonary process. Electronically signed by: Silvana Valderrama MD 05/03/2024 01:01 AM CDT Due to temporary technical issues with the PACS/LYSOGENE reporting system, reports are being camelia d by the in-house radiologist without review as a courtesy to ensure prompt reporting the interpreting radiologist is fully responsible for the content of the report. Transcribed Date/Time: 05/03/2024 5:38 AM
[2024-05-03 06:00] VITALS: TEMP 98.1
[2024-05-03 06:06] VITALS: BP 114/71; O2SAT 100
--- NOTE | 2024-05-07 13:07 | EKG ---
Test Date: 2024-05-03 Test Time: 00:40:26 Human Resources Office Assistant: MEASUREMENT RESULTS: Intervals: Rate: 94 SC: QRSD: 78 QT: 370 QTc: 462 [place]: P: SC: QRS: 18 T: 76 INTERPRETIVE STATEMENTS: Normal sinus rhythm Nonspecific ST and T wave abnormality Abnormal ECG Compared to ECG 04/20/2024 15:05:22 ST (T wave) deviation now present Sinus rhythm no longer present Electronically Signed On 05-07-24 12:55:07 CDT by Ronald Martinez
== END 2024-05-03 05:08 | disposition short-term general hospital (02) ==
LOC: ER 00:08
DX: I21.4 Non-ST elevation (NSTEMI) myocardial infarction (principal); J44.1 Chronic obstructive pulmonary disease with (acute) exacerbation; Z98.61 Coronary angioplasty status; I10 Essential (primary) hypertension; I25.10 Atherosclerotic heart disease of native coronary artery without angina pectoris
CPT/HCPCS: 93005; 85025; 81001; 80048; 36415; 86900; 83735; 86850; 85610; 86901; 80076; 84484; 83690; 83880; 71045; 51702; 96375; 96374; 99285; J7613; J2919; J2405

== ENCOUNTER 2024-05-10 16:52 | Emergency (ER) | payer OTHER ==
[2024-05-10] MEDS ORDERED: NA CHLORIDE 0.9% 1,000 ML ONE (17:28)
[2024-05-10 17:54] LABS: Absolute Eosinophils 0.3 K/uL (0-0.5); Absolute Lymphocytes (CBC) 0.8 K/uL (0.7-4.9); Absolute Monocytes 0.5 K/uL (0.1-1.3); Absolute Neutrophil 3.4 K/uL (1.8-8.0); Basophils % 0.7 % (0-1.3); Eosinophils % 6.1 % (0-4.4); Hematocrit 29.5 % (39.6-49.0); Hemoglobin 10.4 g/dL (13.6-17.9); Lymphocytes % 16.2 % (15.3-44.8); MCH 31.9 pg (27.0-35.0); MCHC 35.2 g/dL (32.0-36.0); MCV 90.6 fL (80-100); MPV 6.3 fL (7.6-11.3); Monocytes % 10.6 % (3.3-12.3); Neutrophils % 66.4 % (41.7-73.7); Nucleated Red Blood Cells % 0.1 % (0-0); Platelets 187 thou/uL (152-406); RBC Red Blood Cell Count 3.26 M/uL (4.33-5.43); Red Cell Distribution Width 15.2 % (12.1-15.2)
[2024-05-10 17:56] LABS: PT Prothrombin Time 11.1 SECONDS (9.4-12.5); Protime INR 0.99
[2024-05-10 18:19] LABS: Albumin 2.7 g/dL (3.4-5.0); Albumin/Globulin Ratio 0.9 (1.1-1.8); Anion Gap 11.5 mEq/L (5.0-15.0); Bilirubin Total 0.9 mg/dL (0.2-1.0); Globulin 2.9 g/dL (2.3-3.5); Potassium 3.5 mEq/L (3.5-5.1); Protein, Total 5.6 g/dL (6.4-8.2)
--- NOTE | 2024-05-10 18:33 | EDPHYS ---
Physician Documentation [facility] Name: Shawn Gant Age: 78 yrs Sex: Male : 1945 Arrival Date: 05/10/2024 Time: 16:52 Bed 18 Private MD: ED Physician Enoc Cadena HPI: 05/10 18:23 This 78 yrs old Male presents to ER via EMS with complaints of Problem With marcial Urinary Catheter. 18:23 The patient presents with urinary symptoms, blood in do, accidentally pulled. Onset: marcial The symptoms/episode began/occurred today. Modifying factors: The symptoms are alleviated by nothing, the symptoms are aggravated by nothing. Associated signs and symptoms: The patient has no apparent associated signs or symptoms. Severity of symptoms: At their worst the symptoms were mild, in the emergency department the symptoms are unchanged. Historical: - Allergies: 17:06 Polio Virus Vaccines; bp - PMHx: 17:06 borderline DM; COPD; Hypertension; History of urinary tract infection; bp - PSHx: 17:06 multiple ortho; bp - Immunization history:: Adult Immunizations. - Infectious Disease History:: Denies. - Social history:: Smoking status: Patient denies any tobacco usage or history of. ROS: 18:29 Constitutional: Negative for fever, chills, and weight loss, Eyes: Negative for injury, marcial pain, redness, and discharge, ENT: Negative for injury, pain, and discharge, Neck: Negative for injury, pain, and swelling, Cardiovascular: Negative for chest pain, palpitations, and edema, Respiratory: Negative for shortness of breath, cough, wheezing, and pleuritic chest pain, Abdomen/GI: Negative for abdominal pain, nausea, vomiting, diarrhea, and constipation, Back: Negative for injury and pain, MS/Extremity: Negative for injury and deformity, Skin: Negative for injury, rash, and discoloration, Neuro: Negative for headache, weakness, numbness, tingling, and seizure, Psych: Negative for depression, anxiety, suicide ideation, homicidal ideation, and hallucinations, Allergy/Immunology: Negative for hives, rash, and allergies, Endocrine: Negative for neck swelling, polydipsia, polyuria, polyphagia, and marked weight changes, Hematologic/Lymphatic: Negative for swollen nodes, abnormal bleeding, and unusual bruising, 18:29 : Positive for urinary symptoms, hematuria, do comp, 18:29 Skin: Positive for ecchymosis, of the back and abdomen, Exam: 18:29 Constitutional: This is a well developed, well nourished patient who is awake, alert, marcial and in no acute distress. Head/Face: Normocephalic, atraumatic. Eyes: Pupils equal round and reactive to light, extra-ocular motions intact. Lids and lashes normal. Conjunctiva and sclera are non-icteric and not injected. Cornea within normal limits. Periorbital areas with no swelling, redness, or edema. ENT: Nares patent. No nasal discharge, no septal abnormalities noted. Tympanic membranes are normal and external auditory canals are clear. Oropharynx with no redness, swelling, or masses, exudates, or evidence of obstruction, uvula midline. Mucous membranes moist. Neck: Trachea midline, no thyromegaly or masses palpated, and no cervical lymphadenopathy. Supple, full range of motion without nuchal rigidity, or vertebral point tenderness. No Meningismus. Chest/axilla: Normal chest wall appearance and motion. Nontender with no deformity. No lesions are appreciated. Cardiovascular: Regular rate and rhythm with a normal S1 and S2. No gallops, murmurs, or rubs. Normal PMI, no JVD. No pulse deficits. Respiratory: Lungs have equal breath sounds bilaterally, clear to auscultation and percussion. No rales, rhonchi or wheezes noted. No increased work of breathing, no retractions or nasal flaring. Abdomen/GI: Soft, non-tender, with normal bowel sounds. No distension or tympany. No guarding or rebound. No evidence of tenderness throughout. Back: No spinal tenderness. No costovertebral tenderness. Full range of motion. MS/ Extremity: Pulses equal, no cyanosis. Neurovascular intact. Full, normal range of motion. Neuro: Awake and alert, GCS 15, oriented to person, place, time, and situation. Cranial nerves II-XII grossly intact. Motor strength 5/5 in all extremities. Sensory grossly intact. Cerebellar exam normal. Normal gait. Psych: Awake, alert, with orientation to person, place and time. Behavior, mood, and affect are within normal limits. 18:29 : CVA tenderness, is absent, Male external genitalia: hypospadias, usual, Vital Signs: 17:08 BP 108 / 49; Pulse 80; Resp 16; Temp 97.9; Pulse Ox 100% ; Weight 83.46 kg; Height 5 bp ft. 10 in. ; 19:02 BP 107 / 61; Pulse 76; Resp 16; Pulse Ox 100% ; bp 19:51 BP 110 / 64; Pulse 78; Resp 18; Temp 97.9; Pulse Ox 100% on R/A; kj2 17:08 Body Mass Index 26.40 (83.46 kg, 177.8 cm) bp MDM: 17:08 Medical Screening Exam initiated [facility] 05/10 17:09 Order name: CBC with Diff [facility] 05/10 17:09 Order name: Comprehensive Metabolic Panel; Complete Time: 18:32 [facility] 05/10 17:09 Order name: PT-INR; Complete Time: 18:32 [facility] 05/10 17:09 Order name: Urinalysis w/ reflexes [facility] 05/10 19:04 Order name: Urine Culture [facility] 05/10 19:27 Order name: Manual Differential [facility] 05/10 17:09 Order name: Misc. Order: itrrigate do; Complete Time: 17:45 [facility] 05/10 18:31 Order name: Do; Complete Time: 18:43 [facility] 05/10 18:31 Order name: Leg Bag; Complete Time: 18:43 [facility] Administered Medications: 17:45 Drug: NS 0.9% IV 1000 ml IV at 1000 ml once; to be given as a bolus over 60 minutes bp Route: IV; Rate: 1000 ml; Site: right antecubital; 19:05 Follow up: IV Status: Completed infusion bp 18:58 Drug: Rocephin IV 1 grams IV at per protocol once; Given slow IV push per pharmacy bp instructions Route: IV; Rate: per protocol; Site: right antecubital; 19:05 Follow up: IV Status: Completed infusion; IV Intake: 1000ml bp 18:58 Drug: Cefdinir PO 300 mg PO once Route: PO; bp 19:05 Follow up: Response: No adverse reaction bp Disposition Summary: 05/10/24 18:33 Discharge Ordered Notes: Location: Home marcial Problem: new marcial Symptoms: have improved marcial Condition: Stable marcial Diagnosis - Hematuria, unspecified marcial - Gross hematuria marcial - Other mechanical complication of urinary (indwelling) catheter - replaced marcial - Acute cystitis with hematuria marcial Followup: marcial - With: Private Physician - When: 2 - 3 days - Reason: Recheck today's complaints, Continuance of care, Re-evaluation by your physician Followup: marcial - With: Joseph Gutierrez MD - When: 2 - 3 days - Reason: Recheck today's complaints, Re-evaluation by your physician Discharge Instructions: - Discharge Summary Sheet marcial - Indwelling Urinary Catheter Care, Adult marcial - Hematuria, Adult marcial - Urinary Tract Infection, Adult marcial - Indwelling Urinary Catheter Care, Adult, [id number] [facility] Forms: - Medication Reconciliation Form marcial - Antibiotic Education marcial - Prescription Opioid Use marcial - Patient Portal Instructions marcial - Leadership Thank You Letter [facility] Prescriptions: - cefdinir 300 mg Oral capsule - take 2 capsule ORAL route daily for 7 days; 14 capsule; Refills: 0, Product marcial Selection Permitted Signatures: Dispatcher [employer] EDMS Enoc Cadena MD MD cha Peltier, Brian, RN RN bp Corrections: (The following items were deleted from the chart) 17:10 17:10 CBC+H.LAB.BRZ ordered. EDMS EDMS 17:10 17:10 COMPREHENSIVE METABOLIC PANEL+C.LAB.BRZ ordered. EDMS EDMS 17:10 17:10 PROTIME (+INR)+COAG.LAB.BRZ ordered. EDMS EDMS 17:10 17:10 Urinalysis+U.LAB.BRZ ordered. EDMS EDMS
--- NOTE | 2024-05-10 18:33 | ER ---
Nurse's Notes [facility] Name: Shawn Gant Age: 78 yrs Sex: Male : 1945 Arrival Date: 05/10/2024 Time: 16:52 Bed 18 Private MD: Diagnosis: Hematuria, unspecified;Gross hematuria;Other mechanical complication of urinary (indwelling) catheter-replaced;Acute cystitis with hematuria Presentation: 05/10 17:05 Chief complaint: EMS states: BLOOD CLOTS IN GIBSON BAG. Coronavirus screen: At this bp time, the client does not indicate any symptoms associated with coronavirus-19. Ebola Screen: No symptoms or risks identified at this time. Initial Sepsis Screen: Does the patient meet any 2 criteria? No. Patient's initial sepsis screen is negative. Does the patient have a suspected source of infection? No. Patient's initial sepsis screen is negative. Risk Assessment: Do you want to hurt yourself or someone else? Patient reports no desire to harm self or others. Onset of symptoms is unknown. 17:05 Method Of Arrival: EMS: [facility] bp 17:05 Acuity: MARIO 3 bp Triage Assessment: 17:06 General: Appears in no apparent distress. Behavior is calm, cooperative, appropriate bp for age. Pain: Denies pain. EENT: No deficits noted. Neuro: No deficits noted. Cardiovascular: No deficits noted. Respiratory: No deficits noted. GI: No signs and/or symptoms were reported involving the gastrointestinal system. : Reports BLOOD CLOTS IN GIBSON BAG. Derm: No deficits noted. Musculoskeletal: No deficits noted. Historical: - Allergies: 17:06 Polio Virus Vaccines; bp - PMHx: 17:06 borderline DM; COPD; Hypertension; History of urinary tract infection; bp - PSHx: 17:06 multiple ortho; bp - Immunization history:: Adult Immunizations. - Infectious Disease History:: Denies. - Social history:: Smoking status: Patient denies any tobacco usage or history of. Screenin:09 [facility] ED Fall Risk Assessment (Adult) History of falling in the last 3 months, bp including since admission No falls in past 3 months (0 pts) Confusion or Disorientation No (0 pts) Intoxicated or Sedated No (0 pts) Impaired Gait No (0 pts) Mobility Assist Device Used No (0 pt) Altered Elimination No (0 pt) Score/Fall Risk Level 0 - 2 = Low Risk. Abuse screen: Denies threats or abuse. Denies injuries from another. Nutritional screening: No deficits noted. Tuberculosis screening: No symptoms or risk factors identified. Assessment: 17:09 General: Appears in no apparent distress. Behavior is calm, cooperative, appropriate bp for age. 19:50 Reassessment: ROCEPHIN NOW COMPLETE, PATIENT TAKEN TO LOBBY IN WHEELCHAIR BY RN. kj2 Vital Signs: 17:08 BP 108 / 49; Pulse 80; Resp 16; Temp 97.9; Pulse Ox 100% ; Weight 83.46 kg; Height 5 bp ft. 10 in. ; 19:02 BP 107 / 61; Pulse 76; Resp 16; Pulse Ox 100% ; bp 19:51 BP 110 / 64; Pulse 78; Resp 18; Temp 97.9; Pulse Ox 100% on R/A; kj2 17:08 Body Mass Index 26.40 (83.46 kg, 177.8 cm) bp ED Course: 17:05 Patient arrived in ED. bp 17:06 Triage completed. bp 17:06 Arm band placed on. bp 17:08 Wyatt Rose, FIONA is Primary Nurse. bp 17:08 Enoc Cadena MD is Attending Physician. marcial 17:09 Patient has correct armband on for positive identification. bp 17:45 Initial lab(s) drawn, by me, sent to lab. Inserted saline lock: 20 gauge in right bp antecubital area, using aseptic technique. Blood collected. Flushed with 10 mL NS. 18:13 Gibson cath inserted, using sterile technique, 16 Fr., by me, by ED staff, balloon bp inflated, to gravity drainage. 18:32 Joseph Gutierrez MD is Referral Physician. marcial 19:03 No provider procedures requiring assistance completed. bp 19:04 IV discontinued, intact, bleeding controlled, No redness/swelling at site. Pressure bp dressing applied. 19:05 Provided Education on: N/A. bp Administered Medications: 17:45 Drug: NS 0.9% IV 1000 ml IV at 1000 ml once; to be given as a bolus over 60 minutes bp Route: IV; Rate: 1000 ml; Site: right antecubital; 19:05 Follow up: IV Status: Completed infusion bp 18:58 Drug: Rocephin IV 1 grams IV at per protocol once; Given slow IV push per pharmacy bp instructions Route: IV; Rate: per protocol; Site: right antecubital; 19:05 Follow up: IV Status: Completed infusion; IV Intake: 1000ml bp 18:58 Drug: Cefdinir PO 300 mg PO once Route: PO; bp 19:05 Follow up: Response: No adverse reaction bp Medication: 17:09 VIS not applicable for this client. bp Intake: 19:05 IV: 1000ml; Total: 1000ml. bp Outcome: 18:33 Discharge ordered by MD. ceja 19:03 Discharged to bp 19:04 Condition: stable bp 19:04 Instructed on discharge instructions, follow up and referral plans. medication usage, 19:51 Patient left the ED. kj2 Signatures: Enoc Cadena MD MD cha Peltier, Brian, RN RN Shirin Jackson, RN RN kj2
[2024-05-10] MEDS ORDERED: CEFTRIAXONE 1000 MG/VIAL ONE (18:54)
[2024-05-10] MEDS ORDERED: NA CHLORIDE 0.9% 100 ML ONE (18:54)
[2024-05-10] MEDS ORDERED: CEFDINIR 300 MG CAP PO ONE (18:54)
[2024-05-10 19:01] LABS: Specific Gravity < 1.005 (1.005-1.030); Sqamous Epithelial None Seen /HPF (None Seen); Urine Bacteria <20 /HPF (<20); Urine Bilirubin NEGATIVE (Negative); Urine Blood 3+ (OVER) (Negative); Urine Clarity Extremely Turbid (Clear); Urine Color Colorless (Yellow); Urine Crystals Unidentified Few /HPF (None Seen); Urine Culture Reflex Order REFLEXED; Urine Glucose NEGATIVE (Negative); Urine Ketones NEGATIVE (Negative); Urine Microscopic Reflex YN ORDER UMIC; Urine Mucus Slight /HPF (None Seen); Urine Nitrite NEGATIVE (Negative); Urine Protein 1+ (Negative); Urine RBC >50 /HPF (None Seen); Urine Urobilinogen Normal (Normal); Urine WBC >50 /HPF (<5); Urine WBC Clump Rare /HPF (None Seen); Urine Yeast (Budding) Occasional /HPF (None Seen); Urine pH 7.5 (5.0-7.0)
[2024-05-10 19:26] LABS: Band Neutrophils 3 % (0-1); Blood Morphology Comment NOT SEEN (NOT SEEN); Differential Total Cells Count 100; Eosinophils 5 % (0-3); Lymphocytes 19 % (15-42); Monocytes 7 % (0-10); Platelet Estimate ADEQ; Segmented Neutrophils 65 % (40-80); Toxic Granulation 1+
[2024-05-11 08:41] VITALS: TEMP 97.9; O2SAT 100
[2024-05-11 08:43] VITALS: BP 110/64
== END 2024-05-10 19:51 | disposition home or self-care (01) ==
LOC: ER 16:52
DX: N30.01 Acute cystitis with hematuria (principal); T83.098A Other mechanical complication of other urinary catheter, initial encounter; I10 Essential (primary) hypertension; R73.03 Prediabetes
CPT/HCPCS: 96361; 87088; 85025; 81001; 87086; 36415; 85610; 80053; 51702; 96374; 99285; J7030; J0696

== ENCOUNTER 2024-06-09 19:36 | Emergency (ER) | payer OTHER ==
[2024-06-09 20:16] LABS: Absolute Basophils 0.1 K/uL (0-0.5); Absolute Eosinophils 0.2 K/uL (0-0.5); Absolute Lymphocytes (CBC) 1.8 K/uL (0.7-4.9); Absolute Monocytes 0.4 K/uL (0.1-1.3); Absolute Neutrophil 4.6 K/uL (1.8-8.0); Basophils % 1.1 % (0-1.3); Eosinophils % 2.6 % (0-4.4); Hematocrit 36.7 % (39.6-49.0); Hemoglobin 12.2 g/dL (13.6-17.9); Lymphocytes % 25.3 % (15.3-44.8); MCH 31.2 pg (27.0-35.0); MCHC 33.4 g/dL (32.0-36.0); MCV 93.6 fL (80-100); MPV 6.7 fL (7.6-11.3); Monocytes % 6.2 % (3.3-12.3); Neutrophils % 64.8 % (41.7-73.7); Platelets 277 thou/uL (152-406); RBC Red Blood Cell Count 3.92 M/uL (4.33-5.43); Red Cell Distribution Width 17.1 % (12.1-15.2)
[2024-06-09 20:37] LABS: Albumin/Globulin Ratio 0.9 (1.1-1.8); Anion Gap 14.2 mEq/L (5.0-15.0); Bilirubin Direct 0.2 mg/dL (0-0.2); Bilirubin Indirect, Calculated 0.5 mg/dL (0.2-0.8); Bilirubin Total 0.7 mg/dL (0.2-1.0); Globulin 3.4 g/dL (2.3-3.5); Potassium 3.2 mEq/L (3.5-5.1); Protein, Total 6.4 g/dL (6.4-8.2); Troponin High Sensitivity 12.1 pg/mL (<58.9)
[2024-06-09 20:43] LABS: SARS-CoV-2 Antigen CONTROL BLUE LINE VIS/BG OK; SARS-CoV-2 Antigen Rapid Res Negative (Negative)
--- NOTE | 2024-06-09 20:44 | RAD REPORT ---
EXAMINATION: CT ABDOMEN AND PELVIS WITH CONTRAST CLINICAL INDICATION: diarrhea TECHNIQUE: CT abdomen and pelvis was performed, after the administration of IV contrast, as per [facility] protocol. Axial, sagittal and coronal reconstructions were obtained. One or more of the following dose reduction techniques were used: Automated exposure control, adjustment of the mA and k V according to patient size, and iterative reconstruction. Unless otherwise specified, incidental findings do not require dedicated imaging follow-up. COMPARISON: 11/16/2023 FINDINGS: LOWER CHEST: The visualized lung bases are clear. LIVER: Normal in size and contour. No focal lesion. Grossly unremarkable gallbladder. SPLEEN: Normal size. No focal lesion. PANCREAS: No mass, ductal dilation, or chantal-pancreatic fluid. ADRENALS: Normal; no mass. KIDNEYS: Normal size and contour. No hydronephrosis. GASTROINTESTINAL TRACT: No evidence of free air, significant intra-abdominal free fluid, bowel obstru ction or abscess. APPENDIX: Normal appendix. LYMPH NODES: No lymphadenopathy. MUSCULOSKELETAL: No acute or suspicious osseous abnormality. ADDITIONAL FINDINGS: Bentley catheter is noted in the urinary bladder with mild air present. IMPRESSION: No acute or concerning abnormalities seen in the abdomen or pelvis.
[2024-06-09] MEDS ORDERED: METHYLPREDNISOLONE 125 MG INJ ONE (20:45)
[2024-06-09] MEDS ORDERED: NA CHLORIDE 0.9% 1,000 ML ONE (20:45)
[2024-06-09] MEDS ORDERED: ALBUTEROL 2.5 MG/3 ML NEB SOL ONE (20:45)
[2024-06-09] MEDS ORDERED: IPRATROPIUM BROM 0.5MG/2.5ML ONE (20:45)
--- NOTE | 2024-06-09 21:06 | RAD REPORT ---
EXAMINATION: ONE VIEW CHEST XR CLINICAL INDICATION: COUGH TECHNIQUE: Frontal chest projection is submitted. Examination is limited by patient positioning and t echnique. COMPARISON: 06/03/2024 FINDINGS: The lungs are well inflated and clear. The heart is upper limit of normal in size. Old left posterior rib fractures. IMPRESSION: Emphysema.
--- NOTE | 2024-06-09 22:27 | EDPHYS ---
Physician Documentation [facility] Name: Shawn Gant Age: 78 yrs Sex: Male : 1945 Arrival Date: 06/09/2024 Time: 19:36 Bed 17 Private MD: ED Physician Parvez Nunez HPI: 06/10 02:48 This 78 yrs old Male presents to ER via EMS with complaints of Diarrhea. rt 02:48 Patient presents to the ED with 4 days of diarrhea. Patient reports cough, congestion rt starting today. Denies difficulty breathing. Denies other acute complaints at this time, symptoms are moderate in severity, no other aggravating or elevating factors.. Historical: - Allergies: 06/09 20:11 Polio Virus Vaccines; al5 - Home Meds: 20:11 alprazolam 2 mg Oral tablet [Active]; buspirone 5 mg Oral tablet [Active]; duloxetine al5 30 mg Oral capsule [Active]; finasteride 5 mg Oral tablet [Active]; fluticasone furoate-vilanterol 100-25 mcg/dose inhalation Blister [Active]; meloxicam 15 mg Oral tablet [Active]; metoprolol tartrate 25 mg Oral tablet [Active]; montelukast 10 mg Oral tablet [Active]; tamsulosin 0.4 mg Oral capsule [Active]; - PMHx: 20:11 borderline DM; COPD; History of urinary tract infection; Hypertension; al5 - PSHx: 20:11 multiple ortho; al5 - Immunization history:: Adult Immunizations up to date, vaccinated today Flu vaccine is up to date. - Infectious Disease History:: Denies. - Social history:: Smoking status: Patient denies any tobacco usage or history of. - Family history:: not pertinent. ROS: 06/10 02:48 Constitutional: Negative for fever, chills, and weight loss, Cardiovascular: Negative rt for chest pain, palpitations, and edema, MS/Extremity: Negative for injury and deformity, Skin: Negative for injury, rash, and discoloration, Neuro: Negative for headache, weakness, numbness, tingling, and seizure, Respiratory: Positive for cough, Negative for shortness of breath, Abdomen/GI: Positive for diarrhea, Negative for abdominal pain, nausea and vomiting, Exam: 02:48 Constitutional: This is a well developed, well nourished patient who is awake, alert, rt and in no acute distress. Chest/axilla: Normal chest wall appearance and motion. Nontender with no deformity. No lesions are appreciated. Cardiovascular: Regular rate and rhythm with a normal S1 and S2. No gallops, murmurs, or rubs. Normal PMI, no JVD. No pulse deficits. Respiratory: Lungs have equal breath sounds bilaterally, clear to auscultation and percussion. No rales, rhonchi or wheezes noted. No increased work of breathing, no retractions or nasal flaring. Abdomen/GI: Soft, non-tender, with normal bowel sounds. No distension or tympany. No guarding or rebound. No evidence of tenderness throughout. Skin: Warm, dry with normal turgor. Normal color with no rashes, no lesions, and no evidence of cellulitis. MS/ Extremity: Pulses equal, no cyanosis. Neurovascular intact. Full, normal range of motion. Neuro: Awake and alert, GCS 15, oriented to person, place, time, and situation. Cranial nerves II-XII grossly intact. Motor strength 5/5 in all extremities. Sensory grossly intact. Cerebellar exam normal. Normal gait. 02:48 ECG was reviewed by the Attending Physician. Vital Signs: 06/09 19:45 BP 136 / 97; Pulse 97; Resp 19; Pulse Ox 97% ; al5 19:47 BP 116 / 74; Pulse 98; Resp 18; Temp 98.3; Pulse Ox 96% on R/A; Weight 83.46 kg; Height al5 5 ft. 10 in. ; 20:00 BP 124 / 76; Pulse 94; Resp 19; Pulse Ox 96% on R/A; al5 20:30 BP 130 / 70; Pulse 89; Resp 18; Pulse Ox 98% on R/A; al5 21:00 BP 134 / 72; Pulse 89; Resp 21; Pulse Ox 97% on R/A; al5 21:30 BP 118 / 83; Pulse 92; Resp 20; Pulse Ox 97% on R/A; al5 19:47 Body Mass Index 26.40 (83.46 kg, 177.8 cm) al5 MDM: 19:40 Medical Screening Exam initiated rt 06/10 02:48 Differential diagnosis: Viral syndrome, pneumonia, colitis, gastroenteritis. Data rt reviewed: vital signs, nurses notes, lab test result(s), EKG, radiologic studies. Consideration of Admission/Observation Escalation of care including admission/observation considered. I considered the following discharge prescriptions or medication management in the emergency department Medications were administered in the Emergency Department. See MAR. Independent interpretation of the following test(s) in the Emergency Department CT Scan: My interpretation is No bowel obstruction syndrome interpretation of CT scan images. Care significantly affected by the following chronic conditions: Chronic Obstructive Pulmonary Disease. Counseling: I had a detailed discussion with the patient and/or guardian regarding the historical points, exam findings, and any diagnostic results supporting the discharge/admit diagnosis, lab results, radiology results, the need for outpatient follow up, to return to the emergency department if symptoms worsen or persist or if there are any questions or concerns that arise at home. Response to treatment: the patient's symptoms have markedly improved after treatment. 06/09 19:49 Order name: Basic Metabolic Panel; Complete Time: 20:45 rt 06/09 19:49 Order name: CBC with Diff; Complete Time: 20:45 rt 06/09 19:49 Order name: LFT's; Complete Time: 20:45 rt 06/09 19:49 Order name: NT PRO-BNP; Complete Time: 20:45 rt 06/09 19:49 Order name: Troponin HS; Complete Time: 20:45 rt 06/09 19:49 Order name: Influenza Screen (a \T\ B); Complete Time: 20:45 rt 06/09 19:49 Order name: SARS RAPID; Complete Time: 20:45 rt 06/09 19:49 Order name: XRAY Chest (1 view); Complete Time: 21:17 rt 06/09 19:49 Order name: CT Abd/Pelvis - IV Contrast Only; Complete Time: 20:45 rt 06/09 19:49 Order name: Cardiac monitoring; Complete Time: 21:10 rt 06/09 19:49 Order name: EKG - Nurse/Tech; Complete Time: 21:09 rt 06/09 19:49 Order name: IV Saline Lock; Complete Time: 20:16 rt 06/09 19:49 Order name: Labs collected and sent; Complete Time: 20:16 rt 06/09 19:49 Order name: O2 Per Protocol; Complete Time: 20:16 rt 06/09 19:49 Order name: O2 Sat Monitoring; Complete Time: 20:16 rt EC:48 Rate is 90 beats/min. Rhythm is regular, Normal Sinus Rhythm with No ectopy. Left axis rt deviation noted. ID interval is normal. QRS interval is normal. QT interval is normal. No Q waves. No ST changes noted. Interpreted by me. Administered Medications: 06/09 21:09 Drug: NS 0.9% IV 1000 ml IV at 1 bolus Per protocol; to be given as a bolus over 60 al5 minutes Route: IV; Rate: 1 bolus; Site: right hand; 22:52 Follow up: Response: No adverse reaction; IV Status: Completed infusion ay 21:09 Drug: DuoNeb Nebulize (3:1) (2.5 mg - 0.5 mg) 3 ml Nebulizer once Route: Nebulizer; al5 21:47 Follow up: Response: No adverse reaction al5 21:09 Drug: MethylPrednisoLONE IVP 125 mg IVP once Route: IVP; Site: right hand; al5 22:52 Follow up: Response: No adverse reaction ay Disposition Summary: 06/09/24 22:26 Discharge Ordered Notes: Location: Home rt Condition: Stable rt Diagnosis - Diarrhea, unspecified rt Followup: rt - With: Private Physician - When: 2 - 3 days - Reason: Discharge Instructions: - Discharge Summary Sheet rt - Diarrhea, Adult rt Forms: - Medication Reconciliation Form rt - Antibiotic Education rt - Prescription Opioid Use rt - Patient Portal Instructions rt - Leadership Thank You Letter rt Signatures: Dispatcher [employer] EDParvez Coleman MD MD rt Joan Tobias RN RN al5 Ana Maria Sanchez RN ay Corrections: (The following items were deleted from the chart) 19:50 19:50 Abdomen Pelvis W Con+CT.RAD.BRZ ordered. EDMS EDMS
--- NOTE | 2024-06-09 22:27 | ER ---
Nurse's Notes [facility] Name: Shawn Gant Age: 78 yrs Sex: Male : 1945 Arrival Date: 06/09/2024 Time: 19:36 Bed 17 Private MD: Diagnosis: Diarrhea, unspecified Presentation: 06/09 19:47 Chief complaint: Patient states: c/o diarrhea x4 days, is of watery dark brown al5 consistency, not black or noticeable blood. also c/o cough and congestion. states he just received his flu and covid vaccine today, denies anyone being sick in the home. Coronavirus screen: congestion, cough unrelated to allergies, diarrhea. Ebola Screen: No symptoms or risks identified at this time. Initial Sepsis Screen: Does the patient meet any 2 criteria? No. Patient's initial sepsis screen is negative. Does the patient have a suspected source of infection? No. Patient's initial sepsis screen is negative. Risk Assessment: Do you want to hurt yourself or someone else? Patient reports no desire to harm self or others. Onset of symptoms was June 05, 2024. 19:47 Method Of Arrival: EMS: [facility] al5 19:47 Acuity: MARIO 3 al5 20:16 Care prior to arrival: IV initiated. 20 GA, in the right hand, Glucose check: 116. al5 Triage Assessment: 20:12 General: Appears in no apparent distress. Behavior is calm, cooperative. Pain: Denies al5 pain. EENT: No signs and/or symptoms were reported regarding the EENT system. Neuro: Level of Consciousness is awake, alert, obeys commands, Oriented to person, place, time, situation. Cardiovascular: Capillary refill < 3 seconds Patient's skin is warm and dry. Respiratory: Airway is patent Respiratory effort is even, unlabored, Respiratory pattern is regular, symmetrical. GI: Abdomen is round non-distended, Reports diarrhea. : No signs and/or symptoms were reported regarding the genitourinary system. Derm: Skin is intact, is healthy with good turgor, Skin is pink, warm \T\ dry. normal. Musculoskeletal: No signs and/or symptoms reported regarding the musculoskeletal system. Historical: - Allergies: 20:11 Polio Virus Vaccines; al5 - Home Meds: 20:11 alprazolam 2 mg Oral tablet [Active]; buspirone 5 mg Oral tablet [Active]; duloxetine al5 30 mg Oral capsule [Active]; finasteride 5 mg Oral tablet [Active]; fluticasone furoate-vilanterol 100-25 mcg/dose inhalation Blister [Active]; meloxicam 15 mg Oral tablet [Active]; metoprolol tartrate 25 mg Oral tablet [Active]; montelukast 10 mg Oral tablet [Active]; tamsulosin 0.4 mg Oral capsule [Active]; - PMHx: 20:11 borderline DM; COPD; History of urinary tract infection; Hypertension; al5 - PSHx: 20:11 multiple ortho; al5 - Immunization history:: Adult Immunizations up to date, vaccinated today Flu vaccine is up to date. - Infectious Disease History:: Denies. - Social history:: Smoking status: Patient denies any tobacco usage or history of. - Family history:: not pertinent. Screenin:15 [facility] ED Fall Risk Assessment (Adult) History of falling in the last 3 months, al5 including since admission No falls in past 3 months (0 pts) Confusion or Disorientation No (0 pts) Intoxicated or Sedated No (0 pts) Impaired Gait No (0 pts) Mobility Assist Device Used No (0 pt) Altered Elimination No (0 pt) Score/Fall Risk Level 0 - 2 = Low Risk Oriented to surroundings, Maintained a safe environment, Hourly rounding (assess needs \T\ fall precautionary measures) done. Abuse screen: Denies threats or abuse. Denies injuries from another. Nutritional screening: No deficits noted. Tuberculosis screening: No symptoms or risk factors identified. Assessment: 20:14 Reassessment: see triage assessment. al5 21:47 Reassessment: Patient appears in no apparent distress at this time. Patient and/or al5 family updated on plan of care and expected duration. Pain level reassessed. Patient is alert, oriented x 3, equal unlabored respirations, skin warm/dry/pink. has not had any episodes of diarrhea. Patient states feeling better. Vital Signs: 19:45 BP 136 / 97; Pulse 97; Resp 19; Pulse Ox 97% ; al5 19:47 BP 116 / 74; Pulse 98; Resp 18; Temp 98.3; Pulse Ox 96% on R/A; Weight 83.46 kg; Height al5 5 ft. 10 in. ; 20:00 BP 124 / 76; Pulse 94; Resp 19; Pulse Ox 96% on R/A; al5 20:30 BP 130 / 70; Pulse 89; Resp 18; Pulse Ox 98% on R/A; al5 21:00 BP 134 / 72; Pulse 89; Resp 21; Pulse Ox 97% on R/A; al5 21:30 BP 118 / 83; Pulse 92; Resp 20; Pulse Ox 97% on R/A; al5 19:47 Body Mass Index 26.40 (83.46 kg, 177.8 cm) al5 ED Course: 19:37 Patient arrived in ED. rv1 19:39 Parvez Nunez MD is Attending Physician. rt 20:00 Joan Tobias RN is Primary Nurse. al5 20:11 Triage completed. al5 20:14 Arm band placed on right wrist. Patient placed in the treatment room, on a stretcher. al5 20:15 Patient has correct armband on for positive identification. Bed in low position. Call al5 light in reach. Side rails up X2. Provided Education on: plan of care. 20:15 No provider procedures requiring assistance completed. Maintain EMS IV. Dressing al5 intact. Good blood return noted. Site clean \T\ dry. Gauge \T\ site: 20G R Hand. 20:39 CT Abd/Pelvis - IV Contrast Only In Process Unspecified. EDMS 20:54 XRAY Chest (1 view) In Process Unspecified. EDMS 22:50 IV discontinued, intact, bleeding controlled, No redness/swelling at site. Pressure ay dressing applied. Administered Medications: 21:09 Drug: NS 0.9% IV 1000 ml IV at 1 bolus Per protocol; to be given as a bolus over 60 al5 minutes Route: IV; Rate: 1 bolus; Site: right hand; 22:52 Follow up: Response: No adverse reaction; IV Status: Completed infusion ay 21:09 Drug: DuoNeb Nebulize (3:1) (2.5 mg - 0.5 mg) 3 ml Nebulizer once Route: Nebulizer; al5 21:47 Follow up: Response: No adverse reaction al5 21:09 Drug: MethylPrednisoLONE IVP 125 mg IVP once Route: IVP; Site: right hand; al5 22:52 Follow up: Response: No adverse reaction ay Medication: 20:15 VIS not applicable for this client. al5 Outcome: 22:26 Discharge ordered by . rt 22:48 Discharged to home via wheelchair, ay 22:48 Condition: stable 22:48 Discharge instructions given to patient, Instructed on discharge instructions, follow up and referral plans. Demonstrated understanding of instructions, follow-up care, 22:59 Patient left the ED. ay Signatures: Dispatcher [employer] EDND Parvez Nunez MD MD rt Zoë Roper rv1 Joan Tobias RN RN al5 Ana Maria Sanchez RN RN ay Corrections: (The following items were deleted from the chart) 20:14 20:08 Chief complaint: Patient states: c/o diarrhea x4 days, is of watery dark brown al5 consistency, not black or noticeable blood. also c/o cough and congestion. states he just received his flu and covid vaccine today, denies anyone being sick in the home. al5 20:14 20:08 Coronavirus screen: congestion, cough unrelated to allergies, diarrhea, al5 al5 20:14 20:08 Ebola Screen: No symptoms or risks identified at this time. al5 al5 20:14 20:08 Coronavirus screen: al5 al5 20:14 20:08 Initial Sepsis Screen: Does the patient meet any 2 criteria? No. Patient's al5 initial sepsis screen is negative. Does the patient have a suspected source of infection? No. Patient's initial sepsis screen is negative. al5 20:14 20:08 Risk Assessment: Do you want to hurt yourself or someone else? Patient reports no al5 desire to harm self or others. al5 20:14 20:08 Onset of symptoms was June 05, 2024 al5 al5 20:14 20:08 Method Of Arrival: EMS: [facility] al5 al5 20:14 20:08 BP 116 / 74; Pulse 98bpm; Resp 18bpm; Pulse Ox 96% RA; Temp 98.3F; 83.46 kg; al5 Height 5 ft. 10 in.; BMI: 26.4; al5 20:14 20:08 Acuity: MARIO 3 al5 al5
[2024-06-10 03:50] VITALS: TEMP 98.3
[2024-06-10 03:54] VITALS: O2SAT 97
[2024-06-10 03:55] VITALS: BP 118/83
--- NOTE | 2024-06-12 11:40 | EKG ---
Test Date: 2024-06-09 Test Time: 21:01:39 Chemical Compounder: NINA MEASUREMENT RESULTS: Intervals: Rate: 90 GA: 174 QRSD: 90 QT: 384 QTc: 469 [place]: P: 67 GA: 174 QRS: -85 T: 62 INTERPRETIVE STATEMENTS: Normal sinus rhythm Left axis deviation Anterior infarct, age undetermined Abnormal ECG Compared to ECG 05/03/2024 00:40:26 Left-axis deviation now present Myocardial infarct finding now present ST (T wave) deviation no longer present Electronically Signed On 06-12-24 11:34:52 TEXTILE TECHNOLOGIST by Ronald Martinez
== END 2024-06-09 22:59 | disposition home or self-care (01) ==
LOC: ER 19:36 → SUPCPDRO 19:36 → ER 22:59
DX: R19.7 Diarrhea, unspecified (principal); R05.9 Cough, unspecified; Z11.52 Encounter for screening for COVID-19; I10 Essential (primary) hypertension; J44.9 Chronic obstructive pulmonary disease, unspecified
CPT/HCPCS: 96361; 85025; 80048; 36415; 80076; 84484; 83880; 87804 ×2; 74177; 71045; 96374; 99284; 87811; Q9967; J7613; J7644; J2919; J7030; 93005

== ENCOUNTER 2024-06-11 22:39 | Emergency (ER) | payer OTHER ==
--- NOTE | 2024-06-12 01:51 | ER ---
Nurse's Notes [facility] Name: Shawn Gant Age: 78 yrs Sex: Male : 1945 Arrival Date: 06/11/2024 Time: 22:39 Bed 4 Private MD: Diagnosis: COPD/ Chronic obstructive pulmonary disease with (acute) exacerbation Presentation: 06/11 22:45 Chief complaint: EMS states: Pt brought in from home via EMS for c/o SOB and cough. Per dd2 EMS pt O2 SAT 92% RA, had home O2 turned off. Pt reports was in the ER x2 days ago for same complaint. Coronavirus screen: cough unrelated to allergies, shortness of breath. Ebola Screen: No symptoms or risks identified at this time. Initial Sepsis Screen: Does the patient meet any 2 criteria? No. Patient's initial sepsis screen is negative. Does the patient have a suspected source of infection? No. Patient's initial sepsis screen is negative. Risk Assessment: Do you want to hurt yourself or someone else? Patient reports no desire to harm self or others. Onset of symptoms is unknown. Care prior to arrival: Medication(s) given: Albuterol Neb x 1, Atrovent Neb x 1, Normal saline infusion, 100cc solumedrol 125 mg IV initiated. 18 GA, in the right antecubital area, Oxygen administered. via a nebulizer mask. 22:45 Method Of Arrival: EMS: [facility] dd2 22:45 Acuity: MARIO 3 dd2 Triage Assessment: 22:51 General: Appears uncomfortable, Behavior is calm, cooperative, appropriate for age. dd2 Pain: Denies pain. Respiratory: Reports shortness of breath at rest on exertion cough that is productive, Airway is patent Respiratory effort is even, unlabored, Respiratory pattern is regular, symmetrical, Breath sounds with rhonchi bilaterally. Onset: The symptoms/episode began/occurred at an unknown time. the patient has mild shortness of breath. 22:51 EENT: No deficits noted. No signs and/or symptoms were reported regarding the EENT dd2 system. Neuro: Level of Consciousness is awake, alert, obeys commands, Oriented to person, place, time, situation, Appropriate for age. Cardiovascular: No deficits noted. Heart tones S1 S2 present Patient's skin is warm and dry. GI: No deficits noted. No signs and/or symptoms were reported involving the gastrointestinal system. Abdomen is non-distended, Bowel sounds present X 4 quads. Abd is soft and non tender X 4 quads. : No deficits noted. No signs and/or symptoms were reported regarding the genitourinary system. Derm: Skin is fragile, Skin is dry, Skin temperature is warm. Musculoskeletal: Circulation, motion, and sensation intact. Range of motion: intact in all extremities. Historical: - Allergies: 22:51 Polio Virus Vaccines; dd2 - PMHx: 22:51 borderline DM; COPD; History of urinary tract infection; Hypertension; dd2 - PSHx: 22:51 multiple ortho; dd2 - Immunization history:: Adult Immunizations up to date. - Infectious Disease History:: Denies. - Social history:: Smoking status: Patient denies any tobacco usage or history of. Screenin:00 [facility] ED Fall Risk Assessment (Adult) History of falling in the last 3 months, dd2 including since admission Yes- single mechanical fall (1 pt) Confusion or Disorientation No (0 pts) Intoxicated or Sedated No (0 pts) Impaired Gait No (0 pts) Mobility Assist Device Used Yes (1 pt) Altered Elimination No (0 pt) Score/Fall Risk Level 0 - 2 = Low Risk Oriented to surroundings, Maintained a safe environment, Educated pt \T\ family on fall prevention, incl call for assistance when getting out of bed, Assessed \T\ reinforced patient's understanding of fall precautions, Hourly rounding (assess needs \T\ fall precautionary measures) done. Abuse screen: Denies threats or abuse. Nutritional screening: No deficits noted. Tuberculosis screening: No symptoms or risk factors identified. Assessment: 23:00 Reassessment: SEE TRIAGE ASSESSMENT FOR FULL ASSESSMENT. dd2 06/12 00:30 Reassessment: Patient is alert, oriented x 3, equal unlabored respirations, skin dd2 warm/dry/pink. Patient denies pain at this time. Patient states symptoms have improved. 01:15 Reassessment: Pt resting quietly. Respirations even and unlabored. NAD noted, VSS. dd2 03:07 Cardiovascular: Rhythm is. br2 Vital Signs: 06/11 22:45 BP 137 / 88; Pulse 101; Resp 20; Temp 98.8(O); Pulse Ox 99% on Nebulizer Mask; Weight dd2 83.46 kg; 06/12 00:09 BP 116 / 71; Pulse 86; Resp 24 S; Pulse Ox 100% ; br2 [place] Coma Score: 06/11 23:00 Eye Response: spontaneous(4). Motor Response: obeys commands(6). Verbal Response: dd2 oriented(5). Total: 15. ED Course: 22:43 Patient arrived in ED. dd2 22:51 Triage completed. dd2 22:51 Arm band placed on right wrist. Patient placed in an exam room, on a stretcher, on dd2 oxygen, on pulse oximetry. 23:00 Patient has correct armband on for positive identification. Bed in low position. Call dd2 light in reach. Side rails up X2. Client placed on continuous cardiac and pulse oximetry monitoring. NIBP monitoring applied. Door closed. Noise minimized. Warm blanket given. Pillow given. Verbal reassurance given. 23:00 No provider procedures requiring assistance completed. Maintain EMS IV. Dressing dd2 intact. Good blood return noted. Site clean \T\ dry. Gauge \T\ site: 18G RAC. Flushed with 10 mL NS. Oxygen administered via a nebulizer mask. 23:14 Parker Martinez MD is Attending Physician. bo1 06/12 01:56 OMID SANTANA, RN is Primary Nurse. dd2 03:07 IV discontinued, intact, bleeding controlled, No redness/swelling at site. Pressure br2 dressing applied. Administered Medications: No medications were administered Medication: 06/11 23:00 VIS not applicable for this client. dd2 Outcome: 06/12 01:50 Discharge ordered by . bo1 03:07 Discharged to home via wheelchair, br2 03:07 Condition: stable 03:07 Discharge instructions given to patient, family, Instructed on discharge instructions, follow up and referral plans. Demonstrated understanding of instructions, follow-up care, 03:09 Patient left the ED. br2 Signatures: Parker Martinez MD MD bo1 Penny De Leon RN RN br2 OMID SANTANA, FIONA RN dd2 Corrections: (The following items were deleted from the chart) 01:58 01:30 Reassessment: SEE TRIAGE ASSESSMENT FOR FULL ASSESSMENT dd2 dd2
--- NOTE | 2024-06-12 01:51 | EDPHYS ---
Physician Documentation [facility] Name: Shawn Gant Age: 78 yrs Sex: Male : 1945 Arrival Date: 06/11/2024 Time: 22:39 Bed 4 Private MD: ED Physician Parker Martinez HPI: 06/12 00:10 This 78 yrs old Male presents to ER via EMS with complaints of Shortness Of bo1 Breath, Cough. 01:53 The patient has shortness of breath during emotionally upset, and the patient has a bo1 history of COPD, Pt has stopped his oxygen support. Onset: The symptoms/episode began/occurred gradually. Duration: The symptoms are intermittent. Associated signs and symptoms: Pertinent positives: non-productive cough, Pertinent negatives: fever. Severity of symptoms: At their worst the symptoms were mild. Pt was transported by EMS - given a nebulized treatment. Historical: - Allergies: 06/11 22:51 Polio Virus Vaccines; dd2 - PMHx: 22:51 borderline DM; COPD; History of urinary tract infection; Hypertension; dd2 - PSHx: 22:51 multiple ortho; dd2 - Immunization history:: Adult Immunizations up to date. - Infectious Disease History:: Denies. - Social history:: Smoking status: Patient denies any tobacco usage or history of. ROS: 06/12 01:58 Constitutional: Negative for fever, chills, and weight loss bo1 Constitutional: Negative for fever, Cardiovascular: Negative for chest pain, Respiratory: Positive for cough, shortness of breath, Abdomen/GI: Positive for diarrhea, Pt was seen 2 days ago for the same and is getting better - No blood, Skin: Negative for lesions, rash, Exam: 02:01 Constitutional: This is a well developed, well nourished patient who is awake, alert, bo1 and in no acute distress. 02:01 Constitutional: The patient appears comfortable, non-toxic, in obvious distress, 02:01 Eyes: Sclera: icterus, is not appreciated, 02:01 Neck: External neck: no acute changes, 02:01 Cardiovascular: Rate: normal, Rhythm: regular, Pulses: no pulse deficits are appreciated, 02:01 Respiratory: the patient does not display signs of respiratory distress, Respirations: normal, Breath sounds: rhonchi, that are mild, are scattered, 02:01 Abdomen/GI: Inspection: abdomen appears normal, Bowel sounds: active, all quadrants, 02:01 Musculoskeletal/extremity: Calves: are non-tender, No swelling or Dylon's , 02:01 Skin: Turgor: is good, Warm and dry. 02:01 Neuro: Orientation: appropriate for stated age, Mentation: appropriate for stated age, Memory: appropriate for stated age, Vital Signs: 06/11 22:45 BP 137 / 88; Pulse 101; Resp 20; Temp 98.8(O); Pulse Ox 99% on Nebulizer Mask; Weight dd2 83.46 kg; 06/12 00:09 BP 116 / 71; Pulse 86; Resp 24 S; Pulse Ox 100% ; br2 Akhil Coma Score: 06/11 23:00 Eye Response: spontaneous(4). Motor Response: obeys commands(6). Verbal Response: dd2 oriented(5). Total: 15. MDM: 23:14 Medical Screening Exam initiated bo1 06/12 01:46 Differential diagnosis: Chronic Obstructive Pulmonary Disease reactive airway disease. bo1 Data reviewed: vital signs, nurses notes, old medical records. ED course: Pt is \T\ 97% on 2 litres NC after the 100% NRB has been discontinued. Reassessed x 3 w/o any deterioration or active sxs. Pt is a recent pt to the ER. Administered Medications: No medications were administered Disposition Summary: 06/12/24 01:50 Discharge Ordered Notes: Location: Home bo1 Problem: chronic bo1 Symptoms: have improved bo1 Condition: Stable bo1 Diagnosis - COPD/ Chronic obstructive pulmonary disease with (acute) exacerbation bo1 Followup: bo1 - With: Private Physician - When: Upon discharge from the Emergency Department - Reason: Recheck today's complaints, Continuance of care Discharge Instructions: - Discharge Summary Sheet bo1 - Chronic Obstructive Pulmonary Disease Exacerbation bo1 Forms: - Medication Reconciliation Form bo1 - Antibiotic Education bo1 - Prescription Opioid Use bo1 - Patient Portal Instructions bo1 - Leadership Thank You Letter bo1 Signatures: Parker Martinez MD MD bo1 OMID SANTANA RN RN dd2
[2024-06-12 09:24] VITALS: TEMP 98.8
[2024-06-12 09:25] VITALS: BP 116/71; O2SAT 100
== END 2024-06-12 03:09 | disposition home or self-care (01) ==
LOC: ER 22:39
DX: J44.1 Chronic obstructive pulmonary disease with (acute) exacerbation (principal); I10 Essential (primary) hypertension
CPT/HCPCS: 99284

== ENCOUNTER 2024-06-13 17:19 | Emergency (ER) | payer OTHER ==
--- NOTE | 2024-06-13 18:18 | EDPHYS ---
Physician Documentation [facility] Name: Shawn Gant Age: 78 yrs Sex: Male : 1945 Arrival Date: 06/13/2024 Time: 17:19 Bed 5 Private MD: ED Physician Parvez Nunez HPI: 06/13 17:42 This 78 yrs old Male presents to ER via Wheelchair with complaints of COPD, Problem sb4 With Urinary Catheter, Bad mood. 18:27 Patient states that he accidentally ran over his Do catheter bag with his walker and sb4 now needs it replaced. He states the Do catheter itself was exchanged recently and is having no issues with the tubing. He denies any pain, fever, nausea, vomiting. Historical: - Allergies: 17:38 Polio Virus Vaccines; cm10 - PMHx: 17:38 borderline DM; COPD; History of urinary tract infection; Hypertension; Dementia; cm10 - PSHx: 17:38 multiple ortho; cm10 - Immunization history:: Adult Immunizations up to date. - Infectious Disease History:: Denies. - Social history:: Smoking status: unknown. ROS: 18:27 Constitutional: Negative for fever, chills, and weight loss, sb4 18:27 : Positive for Per HPI, 18:27 All other systems are negative, Exam: 18:27 Constitutional: This is a well developed, well nourished patient who is awake, alert, sb4 and in no acute distress. Head/Face: Normocephalic, atraumatic. Eyes: Extra-ocular motions intact. Periorbital areas with no swelling, redness, or edema. Skin: Warm, dry with normal turgor. Normal color with no rashes, no lesions, and no evidence of cellulitis. Vital Signs: 17:30 BP 112 / 85; Pulse 110; Resp 16; Pulse Ox 97% ; me1 17:36 BP 119 / 71; Pulse 110; Resp 18; Temp 97.6; Pulse Ox 97% on R/A; Weight 83.46 kg; cm10 Height 5 ft. 10 in. ; Pain 0/10; 18:30 BP 114 / 81; Pulse 104; Resp 17; Temp 98.6; Pulse Ox 100% ; me1 17:36 Body Mass Index 26.40 (83.46 kg, 177.8 cm) cm10 17:36 Pain Scale: Adult cm10 MDM: 17:29 Medical Screening Exam initiated sb4 18:28 Data reviewed: vital signs, nurses notes, and as a result, I will discharge patient. sb4 Counseling: I had a detailed discussion with the patient and/or guardian regarding the historical points, exam findings, and any diagnostic results supporting the discharge/admit diagnosis, the need for outpatient follow up, for definitive care, to return to the emergency department if symptoms worsen or persist or if there are any questions or concerns that arise at home. 06/13 17:40 Order name: Misc. Order: new do bag; Complete Time: 17:45 sb4 Administered Medications: No medications were administered Disposition: 18:45 Co-signature as Attending Physician, Parvez Nunez MD I reviewed the patient's care rt provided by the Advanced Practice Provider and agree with the diagnosis and treatment plan. Disposition Summary: 06/13/24 18:17 Discharge Ordered Notes: Location: Home sb4 Problem: new sb4 Symptoms: have improved sb4 Condition: Stable sb4 Diagnosis - Mechanical complication of urinary (indwelling) catheter sb4 Followup: sb4 - With: Private Physician - When: As needed - Reason: Recheck today's complaints, Re-evaluation by your physician Discharge Instructions: - Discharge Summary Sheet sb4 - Indwelling Urinary Catheter Care, Adult, [id number] sb4 Forms: - Patient Portal Instructions sb4 - Leadership Thank You Letter sb4 Signatures: Lorri Head PA-C PA-C sb4 Parvez Nunez MD MD rt Eugenie Jensen, RN RN cm10
--- NOTE | 2024-06-13 18:18 | ER ---
Nurse's Notes [facility] Name: Shawn Gant Age: 78 yrs Sex: Male : 1945 Arrival Date: 06/13/2024 Time: 17:19 Bed 5 Private MD: Diagnosis: Mechanical complication of urinary (indwelling) catheter Presentation: 06/13 17:36 Chief complaint: Patient states: Needs do bag replaced and that he is in a bad mood. cm10 Pt's states that the patient's dementia is getting worse. Coronavirus screen: Client denies travel out of the [place] in the last 14 days. Ebola Screen: Patient denies travel to an Ebola-affected area in the 21 days before illness onset. No symptoms or risks identified at this time. Initial Sepsis Screen: Does the patient meet any 2 criteria? HR > 90 bpm. Does the patient have a suspected source of infection? No. Patient's initial sepsis screen is negative. Risk Assessment: Do you want to hurt yourself or someone else? Patient reports no desire to harm self or others. Onset of symptoms was June 13, 2024. 17:36 Method Of Arrival: Wheelchair cm10 17:36 Acuity: MARIO 4 cm10 Triage Assessment: 17:39 General: Appears in no apparent distress. comfortable, Behavior is agitated. Neuro: No cm10 deficits noted. Level of Consciousness is awake, alert, Oriented to person, place, time, situation, Appropriate for age. Historical: - Allergies: 17:38 Polio Virus Vaccines; cm10 - PMHx: 17:38 borderline DM; COPD; History of urinary tract infection; Hypertension; Dementia; cm10 - PSHx: 17:38 multiple ortho; cm10 - Immunization history:: Adult Immunizations up to date. - Infectious Disease History:: Denies. - Social history:: Smoking status: unknown. Screenin:47 [facility] ED Fall Risk Assessment (Adult) History of falling in the last 3 months, me1 including since admission No falls in past 3 months (0 pts) Confusion or Disorientation No (0 pts) Intoxicated or Sedated No (0 pts) Impaired Gait No (0 pts) Mobility Assist Device Used No (0 pt) Altered Elimination No (0 pt) Score/Fall Risk Level 0 - 2 = Low Risk Maintained a safe environment, Provided non-skid footwear, Hourly rounding (assess needs \T\ fall precautionary measures) done. Abuse screen: Denies threats or abuse. Nutritional screening: No deficits noted. Tuberculosis screening: No symptoms or risk factors identified. Assessment: 17:47 General: Appears comfortable, well groomed, well developed, well nourished, Behavior is me1 calm, cooperative, appropriate for age, Reports Needs do bag replaced and that he is in a bad mood. Pt's states that the patient's dementia is getting worse. Pain: Denies pain. Neuro: Level of Consciousness is awake, alert, obeys commands, Oriented to person, place, situation, Appropriate for age. Cardiovascular: Patient's skin is warm and dry. Respiratory: Airway is patent Respiratory effort is even, unlabored, Respiratory pattern is regular, symmetrical. GI: No signs and/or symptoms were reported involving the gastrointestinal system. : Do in place to gravity drainage bag has a leak where patient ran over it in his motorized wheelchair. Bedside drainage bag changed. EENT: No signs and/or symptoms were reported regarding the EENT system. Derm: Skin is intact, is healthy with good turgor, Skin is pink, warm \T\ dry. Musculoskeletal: No signs and/or symptoms reported regarding the musculoskeletal system. Vital Signs: 17:30 BP 112 / 85; Pulse 110; Resp 16; Pulse Ox 97% ; me1 17:36 BP 119 / 71; Pulse 110; Resp 18; Temp 97.6; Pulse Ox 97% on R/A; Weight 83.46 kg; cm10 Height 5 ft. 10 in. ; Pain 0/10; 18:30 BP 114 / 81; Pulse 104; Resp 17; Temp 98.6; Pulse Ox 100% ; me1 17:36 Body Mass Index 26.40 (83.46 kg, 177.8 cm) cm10 17:36 Pain Scale: Adult cm10 ED Course: 17:21 Patient arrived in ED. im 17:27 Lorri Head PA-C is PHCP. sb4 17:27 Parvez Nunez MD is Attending Physician. sb4 17:38 Triage completed. cm10 17:39 Arm band placed on right wrist. Patient placed in an exam room, on a stretcher. cm10 17:40 Eddleman, Jolynn, RN is Primary Nurse. me1 17:47 Patient has correct armband on for positive identification. Bed in low position. Call me1 light in reach. Side rails up X2. Provided Education on: POC. Verbalized understanding.. Client placed on continuous cardiac and pulse oximetry monitoring. NIBP monitoring applied. Pulse ox on. NIBP on. 17:47 No provider procedures requiring assistance completed. me1 18:30 Patient did not have IV access during this emergency room visit. me1 Administered Medications: No medications were administered Medication: :47 VIS not applicable for this client. me1 Outcome: 18:17 Discharge ordered by MD. sb4 18:30 Discharged to home via wheelchair, with family, me1 18:30 Condition: stable 18:30 Discharge instructions given to patient, significant other, Instructed on discharge instructions, follow up and referral plans. Demonstrated understanding of instructions, follow-up care, 18:31 Patient left the ED. me1 Signatures: Lorri Head, JAYSHREEC PASantiago sb4 Suzie Suazo Clarissa, RN RN cm10 Jolynn Christian RN RN me1 Corrections: (The following items were deleted from the chart) :47 17:36 Chief complaint: Patient states: Needs do bag replaced and that he is in a bad me1 mood. Pt's states that the patient's dementia is getting worse cm10
[2024-06-13 18:48] VITALS: BP 114/81; TEMP 98.6; O2SAT 100
== END 2024-06-13 18:31 | disposition home or self-care (01) ==
LOC: ER 17:19
DX: T83.098A Other mechanical complication of other urinary catheter, initial encounter (principal)
CPT/HCPCS: 99283

== ENCOUNTER 2024-06-23 09:29 | Emergency (ER) | payer OTHER ==
[2024-06-23] MEDS ORDERED: IPRATROPIUM BROM 0.5MG/2.5ML ONE (09:48)
[2024-06-23] MEDS ORDERED: Levofloxacin500mg IV 500 MG/100 ML BAG IV ONE (09:48)
[2024-06-23] MEDS ORDERED: METHYLPREDNISOLONE 125 MG INJ ONE (09:48)
[2024-06-23] MEDS ORDERED: ALBUTEROL 2.5 MG/3 ML NEB SOL ONE (09:48)
--- NOTE | 2024-06-23 09:52 | RAD REPORT ---
EXAM: Chest Single View HISTORY: COPD COMPARISON: 06/09/2024 FINDINGS: LUNGS/PLEURA: The lungs are clear. No pleural effusions or pneumothorax. No pulmonary edema. MEDIASTINUM: The mediastinal silhouette is within normal limits. CARDIAC: The cardiac silhouette is within normal limits. UPPER ABDOMEN: No significant abnormality. BONES: No acute fracture. Remote left-sided rib fractures. LINES/TUBES/OTHER: N/A IMPRESSION: No evidence of acute cardiopulmonary disease.
[2024-06-23 09:57] LABS: Absolute Basophils 0.1 K/uL (0-0.5); Absolute Eosinophils 0.1 K/uL (0-0.5); Absolute Lymphocytes (CBC) 0.9 K/uL (0.7-4.9); Absolute Monocytes 0.8 K/uL (0.1-1.3); Absolute Neutrophil 9.6 K/uL (1.8-8.0); Basophils % 0.6 % (0-1.3); Eosinophils % 0.9 % (0-4.4); Hematocrit 42.3 % (39.6-49.0); Hemoglobin 13.9 g/dL (13.6-17.9); Lymphocytes % 7.9 % (15.3-44.8); MCH 31.5 pg (27.0-35.0); MCV 95.7 fL (80-100); MPV 7.3 fL (7.6-11.3); Monocytes % 6.8 % (3.3-12.3); Neutrophils % 83.8 % (41.7-73.7); Platelets 267 thou/uL (152-406); RBC Red Blood Cell Count 4.42 M/uL (4.33-5.43); Red Cell Distribution Width 16.5 % (12.1-15.2)
[2024-06-23 10:15] LABS: Albumin 3.5 g/dL (3.4-5.0); Albumin/Globulin Ratio 0.9 (1.1-1.8); Anion Gap 9.8 mEq/L (5.0-15.0); Bilirubin Direct 0.5 mg/dL (0-0.2); Bilirubin Indirect, Calculated 1.2 mg/dL (0.2-0.8); Bilirubin Total 1.7 mg/dL (0.2-1.0); Globulin 3.8 g/dL (2.3-3.5); Magnesium 1.7 mg/dL (1.6-2.4); Potassium 3.8 mEq/L (3.5-5.1); Protein, Total 7.3 g/dL (6.4-8.2); Troponin High Sensitivity 40.6 pg/mL (<58.9)
--- NOTE | 2024-06-23 10:23 | ER ---
Nurse's Notes [facility] Name: Shawn Gant Age: 78 yrs Sex: Male : 1945 Arrival Date: 06/23/2024 Time: 09:29 Bed 15 Private MD: Diagnosis: COPD Presentation: 06/23 09:32 Chief complaint: EMS states: Pt toned out EMS for difficulty breathing, o2 sat 98 RA on rs5 arrival. Coronavirus screen: At this time, the client does not indicate any symptoms associated with coronavirus-19. Ebola Screen: No symptoms or risks identified at this time. 09:32 Method Of Arrival: EMS: [facility] rs5 09:34 Initial Sepsis Screen: Does the patient meet any 2 criteria? No. Patient's initial rs5 sepsis screen is negative. Does the patient have a suspected source of infection? No. Patient's initial sepsis screen is negative. Risk Assessment: Do you want to hurt yourself or someone else? Patient reports no desire to harm self or others. Onset of symptoms was June 23, 2024. Care prior to arrival: Medication(s) given: Albuterol Neb x 1. 09:34 Acuity: MARIO 3 rs5 Triage Assessment: 09:33 General: Appears in no apparent distress. uncomfortable, Behavior is calm, cooperative. rs5 Respiratory: Respiratory: Onset: The symptoms/episode began/occurred this morning. Historical: - Allergies: 09:35 Polio Virus Vaccines; rs5 - PMHx: 09:35 borderline DM; History of urinary tract infection; Dementia; Hypertension; COPD; rs5 - PSHx: 09:35 multiple ortho; rs5 - Immunization history:: Adult Immunizations up to date. - Infectious Disease History:: Denies. - Social history:: Smoking status: Patient/guardian denies using tobacco, but has a distant history of tobacco abuse. Screenin:34 [facility] ED Fall Risk Assessment (Adult) History of falling in the last 3 months, rs5 including since admission No falls in past 3 months (0 pts) Confusion or Disorientation No (0 pts) Intoxicated or Sedated No (0 pts) Impaired Gait No (0 pts) Mobility Assist Device Used No (0 pt) Altered Elimination No (0 pt) Score/Fall Risk Level 0 - 2 = Low Risk Oriented to surroundings, Maintained a safe environment. Abuse screen: Denies threats or abuse. Nutritional screening: No deficits noted. Tuberculosis screening: No symptoms or risk factors identified. Assessment: 09:33 General: Appears in no apparent distress. uncomfortable, Behavior is calm, cooperative. rs5 Pain: Denies pain. Neuro: Level of Consciousness is awake, alert, obeys commands, Oriented to person, place, time, situation. Cardiovascular: Patient's skin is warm and dry. Rhythm is. Respiratory: Reports shortness of breath cough that is Airway is patent Respiratory effort is even, unlabored, Respiratory pattern is regular, symmetrical, GI: Abdomen is round non-distended, Abd is soft and non tender X 4 quads. : No signs and/or symptoms were reported regarding the genitourinary system. EENT: No signs and/or symptoms were reported regarding the EENT system. Derm: Skin is intact, Skin is pink, warm \T\ dry. Musculoskeletal: Range of motion: intact in all extremities. 10:17 Reassessment: Patient and/or family updated on plan of care and expected duration. Pain rs5 level reassessed. Patient is alert, oriented x 3, equal unlabored respirations, skin warm/dry/pink. Vital Signs: 09:30 Temp 98.2(O); rs5 09:34 BP 126 / 71; Pulse 80; Resp 17; Pulse Ox 98% on R/A; rs5 09:37 Weight 83.46 kg; Height 6 ft. 0 in. ; hb 10:50 BP 122 / 74; Pulse 71; Resp 17; Temp 98(O); Pulse Ox 99% ; rs5 09:37 Body Mass Index 24.95 (83.46 kg, 182.88 cm) hb ED Course: 09:32 Patient arrived in ED. rs5 09:32 Michaelle Rehman MD is Attending Physician. sp3 09:34 Patient has correct armband on for positive identification. Placed in gown. Bed in low rs5 position. Call light in reach. Side rails up X2. 09:34 No provider procedures requiring assistance completed. rs5 09:35 Triage completed. rs5 09:37 Arm band placed on. hb 09:38 Ismael Reis RN is Primary Nurse. rs5 09:40 Inserted saline lock: 20 gauge in right antecubital area, using aseptic technique. rs5 Blood collected. Flushed with 10 mL NS. 09:46 XRAY Chest (1 view) In Process Unspecified. EDMS 10:55 Provided Education on: discharge instructions . rs5 10:58 IV discontinued, intact, bleeding controlled, No redness/swelling at site. Pressure rs5 dressing applied. Administered Medications: 10:02 Drug: DuoNeb Nebulize (3:1) (2.5 mg - 0.5 mg) 3 ml Nebulizer once Route: Nebulizer; rs5 10:20 Follow up: Response: No adverse reaction rs5 10:02 Drug: MethylPrednisoLONE IVP 125 mg IVP once Route: IVP; Site: right antecubital; rs5 10:20 Follow up: Response: No adverse reaction rs5 10:03 Drug: levofloxacin IVPB 500 mg 100 ml IVPB once over 60 mins Volume: 100 ml; Route: rs5 IVPB; Infused Over: 60 mins; Site: right antecubital; 11:00 Follow up: Response: No adverse reaction; IV Status: Completed infusion; IV Intake: rs5 100ml Medication: 10:18 VIS not applicable for this client. rs5 Intake: 11:00 IV: 100ml; Total: 100ml. rs5 Outcome: 10:23 Discharge ordered by . sp3 10:58 Discharged to home via wheelchair, with family, rs5 10:58 Condition: stable rs5 10:58 Discharge instructions given to patient, family, Instructed on discharge instructions, follow up and referral plans. Demonstrated understanding of instructions, follow-up care, 10:59 Patient left the ED. rs5 Signatures: Dispatcher [employer] EDKS Sadia Palafox RN RN Michaelle Rehman MD MD sp3 Ismael Reis RN RN rs5 Corrections: (The following items were deleted from the chart) 16:56 11:10 BP 122 / 74; Pulse 71bpm; Resp 17bpm; Pulse Ox 99%; Temp 98F Oral; rs5 rs5
--- NOTE | 2024-06-23 10:23 | EDPHYS ---
Physician Documentation [facility] Name: Shawn Gant Age: 78 yrs Sex: Male : 1945 Arrival Date: 06/23/2024 Time: 09:29 Bed 15 Private MD: ED Physician Michaelle Rehman HPI: 06/23 10:21 This 78 yrs old Male presents to ER via EMS with complaints of Breathing Difficulty. sp3 10:21 78-year-old male with a history of COPD, dementia, hypertension presents to the ED with sp3 chief complaint cough and congestion and concerns of COPD and arrives via EMS. He denies any chest pain, fever, abdominal pain, vomit, diarrhea, syncope, rash, known sick contacts, travel history, or any other signs or symptoms on ROS at this time. Vital signs are normal for EMS with normal pulse oxygenation.. Historical: - Allergies: 09:35 Polio Virus Vaccines; rs5 - PMHx: 09:35 borderline DM; History of urinary tract infection; Dementia; Hypertension; COPD; rs5 - PSHx: 09:35 multiple ortho; rs5 - Immunization history:: Adult Immunizations up to date. - Infectious Disease History:: Denies. - Social history:: Smoking status: Patient/guardian denies using tobacco, but has a distant history of tobacco abuse. ROS: 10:21 Constitutional: Negative for fever, chills, and weight loss, Eyes: Negative for injury, sp3 pain, redness, and discharge, ENT: Negative for injury, pain, and discharge, Neck: Negative for injury, pain, and swelling, Cardiovascular: Negative for chest pain, palpitations, and edema, Abdomen/GI: Negative for abdominal pain, nausea, vomiting, diarrhea, and constipation, Back: Negative for injury and pain, MS/Extremity: Negative for injury and deformity, Skin: Negative for injury, rash, and discoloration, Neuro: Negative for headache, weakness, numbness, tingling, and seizure, Psych: Negative for depression, anxiety, suicide ideation, homicidal ideation, and hallucinations, Allergy/Immunology: Negative for hives, rash, and allergies, Endocrine: Negative for neck swelling, polydipsia, polyuria, polyphagia, and marked weight changes, Hematologic/Lymphatic: Negative for swollen nodes, abnormal bleeding, and unusual bruising, 10:21 All other systems are negative, Exam: 10:21 Constitutional: This is a well developed, well nourished patient who is awake, alert, sp3 and in no acute distress. Head/Face: Normocephalic, atraumatic. Eyes: Pupils equal round and reactive to light, extra-ocular motions intact. Lids and lashes normal. Conjunctiva and sclera are non-icteric and not injected. Cornea within normal limits. Periorbital areas with no swelling, redness, or edema. Neck: Trachea midline, no thyromegaly or masses palpated, and no cervical lymphadenopathy. Supple, full range of motion without nuchal rigidity, or vertebral point tenderness. No Meningismus. Chest/axilla: Normal chest wall appearance and motion. Nontender with no deformity. No lesions are appreciated. Cardiovascular: Regular rate and rhythm with a normal S1 and S2. No gallops, murmurs, or rubs. Normal PMI, no JVD. No pulse deficits. Abdomen/GI: Soft, non-tender, with normal bowel sounds. No distension or tympany. No guarding or rebound. No evidence of tenderness throughout. Back: No spinal tenderness. No costovertebral tenderness. Full range of motion. Skin: Warm, dry with normal turgor. Normal color with no rashes, no lesions, and no evidence of cellulitis. MS/ Extremity: Pulses equal, no cyanosis. Neurovascular intact. Full, normal range of motion. Neuro: Awake and alert, GCS 15, oriented to person, place, time, and situation. Cranial nerves II-XII grossly intact. Motor strength 5/5 in all extremities. Sensory grossly intact. Cerebellar exam normal. Normal gait. Psych: Awake, alert, with orientation to person, place and time. Behavior, mood, and affect are within normal limits. 10:21 Respiratory: Coarse breath sounds with active cough. Scattered wheeze., 10:48 ECG was reviewed by the Attending Physician. EKG demonstrates normal sinus rhythm at 96 sp3 bpm with normal intervals, normal QRS, leftward axis, nonspecific diffuse ST's ST changes without evidence of acute ischemia. Vital Signs: 09:30 Temp 98.2(O); rs5 09:34 BP 126 / 71; Pulse 80; Resp 17; Pulse Ox 98% on R/A; rs5 09:37 Weight 83.46 kg; Height 6 ft. 0 in. ; hb 10:50 BP 122 / 74; Pulse 71; Resp 17; Temp 98(O); Pulse Ox 99% ; rs5 09:37 Body Mass Index 24.95 (83.46 kg, 182.88 cm) hb MDM: 09:32 Medical Screening Exam initiated sp3 10:22 Data reviewed: vital signs, nurses notes, lab test result(s), EKG, radiologic studies. sp3 ED course: 78-year-old male with COPD exacerbation versus bronchitis versus pneumonia. I med/tele suspicious of the latter or acute coronary syndrome, sepsis or shock. Vital signs here are also normal. Chest x-ray is clean. Labs within normal limits and patient is improved after Solu-Medrol and nebulizer. Will discharge home on Levaquin and prednisone.. 06/23 09:33 Order name: Basic Metabolic Panel; Complete Time: 10:20 sp3 06/23 09:33 Order name: CBC with Diff; Complete Time: 10:20 sp3 06/23 09:33 Order name: LFT's; Complete Time: 10:20 sp3 06/23 09:33 Order name: Magnesium; Complete Time: 10:20 sp3 1208 09:33 Order name: NT PRO-BNP; Complete Time: 10:20 sp3 08 09:33 Order name: Troponin HS; Complete Time: 10:20 sp3 08 09:33 Order name: XRAY Chest (1 view); Complete Time: 09:57 sp3 08 09:33 Order name: EKG; Complete Time: 09:33 sp3 06/23 09:33 Order name: Cardiac monitoring; Complete Time: 10:03 sp3 06/23 09:33 Order name: EKG - Nurse/Tech; Complete Time: 10:03 sp3 08 09:33 Order name: IV Saline Lock; Complete Time: 10:03 sp3 06/23 09:33 Order name: Labs collected and sent; Complete Time: 10:03 sp3 06/23 09:33 Order name: O2 Per Protocol; Complete Time: 10:03 sp3 06/23 09:33 Order name: O2 Sat Monitoring; Complete Time: 10:03 sp3 Administered Medications: 10:02 Drug: DuoNeb Nebulize (3:1) (2.5 mg - 0.5 mg) 3 ml Nebulizer once Route: Nebulizer; rs5 10:20 Follow up: Response: No adverse reaction rs5 10:02 Drug: MethylPrednisoLONE IVP 125 mg IVP once Route: IVP; Site: right antecubital; rs5 10:20 Follow up: Response: No adverse reaction rs5 10:03 Drug: levofloxacin IVPB 500 mg 100 ml IVPB once over 60 mins Volume: 100 ml; Route: rs5 IVPB; Infused Over: 60 mins; Site: right antecubital; 11:00 Follow up: Response: No adverse reaction; IV Status: Completed infusion; IV Intake: rs5 100ml Disposition Summary: 06/23/24 10:23 Discharge Ordered Notes: Location: Home sp3 Condition: Stable sp3 Diagnosis - COPD sp3 Followup: sp3 - With: Private Physician - When: Upon discharge from the Emergency Department - Reason: Continuance of care Discharge Instructions: - Discharge Summary Sheet sp3 - Living With COPD sp3 Forms: - Medication Reconciliation Form sp3 - Antibiotic Education sp3 - Prescription Opioid Use sp3 - Patient Portal Instructions sp3 - Leadership Thank You Letter sp3 Prescriptions: - Prednisone 20 mg Oral Tablet - take 2 tablets ORAL route once daily for 5 days; 10 tablet; Refills: 0, Product sp3 Selection Permitted - levofloxacin 500 mg Oral tablet - take 1 tablet ORAL route once daily for 6 days; 6 tablet; Refills: 0, Product sp3 Selection Permitted Signatures: Dispatcher [employer] Michaelle Cavanaugh MD MD sp3 Ismael Reis RN RN rs5
[2024-06-23 13:38] VITALS: TEMP 98.2
[2024-06-23 13:39] VITALS: BP 126/71; O2SAT 98
== END 2024-06-23 10:59 | disposition home or self-care (01) ==
LOC: ER 09:29
DX: J44.9 Chronic obstructive pulmonary disease, unspecified (principal); I10 Essential (primary) hypertension
CPT/HCPCS: 96365; 85025; 80048; 36415; 83735; 80076; 84484; 83880; 71045; 96375; 99285; J7613; J7644; J2919

== ENCOUNTER 2024-06-26 17:03 | Emergency (ER) | payer OTHER ==
[2024-06-26] MEDS ORDERED: ALBUTEROL 2.5 MG/3 ML NEB SOL ONE (17:47)
[2024-06-26] MEDS ORDERED: IPRATROPIUM BROM 0.5MG/2.5ML ONE (17:47)
[2024-06-26 18:17] LABS: Absolute Eosinophils 0.1 K/uL (0-0.5); Absolute Lymphocytes (CBC) 0.8 K/uL (0.7-4.9); Absolute Monocytes 0.2 K/uL (0.1-1.3); Absolute Neutrophil 4.2 K/uL (1.8-8.0); Basophils % 0.5 % (0-1.3); Eosinophils % 1.9 % (0-4.4); Hemoglobin 12.7 g/dL (13.6-17.9); Lymphocytes % 15.4 % (15.3-44.8); MCH 31.8 pg (27.0-35.0); MCHC 33.5 g/dL (32.0-36.0); MCV 94.7 fL (80-100); MPV 6.8 fL (7.6-11.3); Monocytes % 3.5 % (3.3-12.3); Neutrophils % 78.7 % (41.7-73.7); Nucleated Red Blood Cells % 0.1 % (0-0); Platelets 256 thou/uL (152-406); RBC Red Blood Cell Count 4.01 M/uL (4.33-5.43); Red Cell Distribution Width 16.1 % (12.1-15.2)
--- NOTE | 2024-06-26 18:24 | RAD REPORT ---
EXAMINATION: ONE VIEW CHEST XR CLINICAL INDICATION: SOB TECHNIQUE: Frontal chest projection is submitted. Examination is limited by patient positioning and t echnique. COMPARISON: 06/23/2024 FINDINGS: The lungs are diffusely emphysematous but grossly clear. The heart is normal in size. Old left firer portable boiler ior rib fractures. IMPRESSION: COPD without an acute process suspected.
[2024-06-26 18:25] LABS: Anion Gap 9.1 mEq/L (5.0-15.0); Potassium 3.1 mEq/L (3.5-5.1)
--- NOTE | 2024-06-26 20:15 | ER ---
Nurse's Notes [facility] Name: Shawn Gant Age: 78 yrs Sex: Male : 1945 Arrival Date: 06/26/2024 Time: 17:03 Bed 6 Private MD: Diagnosis: COPD/ Chronic obstructive pulmonary disease with (acute) exacerbation Presentation: 06/26 17:17 Chief complaint: EMS states: SOB. Coronavirus screen: At this time, the client does not bp indicate any symptoms associated with coronavirus-19. Ebola Screen: No symptoms or risks identified at this time. Initial Sepsis Screen: Does the patient meet any 2 criteria? No. Patient's initial sepsis screen is negative. Does the patient have a suspected source of infection? No. Patient's initial sepsis screen is negative. Risk Assessment: Do you want to hurt yourself or someone else? Patient reports no desire to harm self or others. Onset of symptoms is unknown. Care prior to arrival: Medication(s) given: SOLU-MEDROL 125MG IV initiated. 20 GA, in the right forearm, Med neb given. 17:17 Method Of Arrival: EMS: [facility] bp 17:17 Acuity: MARIO 3 bp Historical: - Allergies: 17:19 Polio Virus Vaccines; bp - PMHx: 17:19 borderline DM; Hypertension; Dementia; History of urinary tract infection; COPD; bp - PSHx: 17:19 multiple ortho; bp - Immunization history:: Adult Immunizations up to date. - Infectious Disease History:: Denies. - Social history:: Smoking status: . Screenin:45 [facility] ED Fall Risk Assessment (Adult) History of falling in the last 3 months, jb4 including since admission No falls in past 3 months (0 pts) Confusion or Disorientation No (0 pts) Intoxicated or Sedated No (0 pts) Impaired Gait No (0 pts) Mobility Assist Device Used No (0 pt) Altered Elimination No (0 pt) Score/Fall Risk Level 0 - 2 = Low Risk Oriented to surroundings, Maintained a safe environment. Abuse screen: Denies threats or abuse. Nutritional screening: No deficits noted. Tuberculosis screening: No symptoms or risk factors identified. Assessment: 17:45 General: Appears in no apparent distress. comfortable, Behavior is calm, cooperative, jb4 appropriate for age. Pain: Denies pain. Neuro: Level of Consciousness is awake, alert, obeys commands, Oriented to person, place, time, situation. Cardiovascular: Patient's skin is warm and dry. Respiratory: Airway is patent Respiratory effort is even, unlabored, Respiratory pattern is regular, symmetrical. Derm: Skin is intact, Skin is pink, warm \T\ dry. 19:00 Reassessment: Patient appears in no apparent distress at this time. Patient and/or jb4 family updated on plan of care and expected duration. Pain level reassessed. Patient is alert, oriented x 3, equal unlabored respirations, skin warm/dry/pink. 21:05 Reassessment: Patient appears in no apparent distress at this time. Patient and/or jb4 family updated on plan of care and expected duration. Pain level reassessed. Patient is alert, oriented x 3, equal unlabored respirations, skin warm/dry/pink. 21:05 Respiratory: Airway is patent Respiratory effort is even, unlabored, Respiratory jb4 pattern is regular, symmetrical, Breath sounds are clear bilaterally. Vital Signs: 17:17 BP 128 / 78; Pulse 130; Resp 24; Temp 98; Pulse Ox 100% on R/A; bp 18:12 BP 144 / 84; Pulse 90; Resp 16; Pulse Ox 100% on Nebulizer Mask; jb4 19:45 BP 138 / 104; Pulse 96; Resp 16; Pulse Ox 95% on R/A; jb4 ED Course: 17:04 Patient arrived in ED. ll1 17:08 Praveen Calderón DO is Attending Physician. ms3 17:08 [facility] ms3 17:19 Triage completed. bp 18:11 Minor Jacobson, RN is Primary Nurse. jb4 18:12 BMP Sent. jb4 18:12 CBC with Diff Sent. jb4 18:14 Chest Single View XRAY In Process Unspecified. EDMS 20:04 educated patient to use the call light provided in the room instead of calling the [facility] nurses station on his personal cellphone. 20:49 Attending Physician role handed off by Praveen Calderón DO sp4 20:49 Brandon Chiang MD is Attending Physician. sp4 21:08 No provider procedures requiring assistance completed. IV discontinued, intact, jb4 bleeding controlled, No redness/swelling at site. Pressure dressing applied. 21:08 Provided Education on: discharge instructions.. jb4 Administered Medications: 17:53 Drug: Albuterol Inhalation 2.5 mg Inhalation every 20 minutes x3 Route: Inhalation; jb4 21:08 Follow up: Response: No adverse reaction; Marked relief of symptoms jb4 17:53 Drug: Ipratropium Inhalation Aerosol 0.5 mg Inhalation once Route: Inhalation; jb4 21:08 Follow up: Response: No adverse reaction; Marked relief of symptoms jb4 Medication: 19:45 VIS not applicable for this client. jb4 Outcome: 20:15 Discharge ordered by . pm1 21:09 Patient left the ED. jb4 Signatures: Dispatcher [employer] EDMS Anjel Camilo NP DIGITAL FORENSIC EXAMINER pm1 Minor Jacobson RN RN jb4 Wyatt Rose RN RN bp Peter Enamorado RN RN ll1 Praveen Calderón DO DO ms3 Brandon Chiang MD MD sp4 Shirley Kahn [facility]
--- NOTE | 2024-06-26 20:15 | EDPHYS ---
Physician Documentation [facility] Name: Shawn Gant Age: 78 yrs Sex: Male : 1945 Arrival Date: 06/26/2024 Time: 17:03 Bed 6 Private MD: ED Physician Brandon Chiang HPI: 06/26 17:12 This 78 yrs old Male presents to ER via Unassigned with complaints of COPD exacerbation.ms3 17:12 78-year-old male with past medical history of COPD presents to the emergency department ms3 via [facility] for COPD exacerbation that began this morning. Patient states he is taken a nebulizer treatment and used his rescue inhaler without relief of his symptoms. EMS states they administered Solu-Medrol 125 mg and a DuoNeb without improvement of his symptoms. Patient denies pain. Patient denies any alleviating or inciting factors.. Historical: - Allergies: 17:19 Polio Virus Vaccines; bp - PMHx: 17:19 borderline DM; Hypertension; Dementia; History of urinary tract infection; COPD; bp - PSHx: 17:19 multiple ortho; bp - Immunization history:: Adult Immunizations up to date. - Infectious Disease History:: Denies. - Social history:: Smoking status: . ROS: 17:12 Constitutional: Negative for fever, and chills. Cardiovascular: Negative for chest ms3 pain, and palpitations. 17:12 Abdomen/GI: Negative for abdominal pain, nausea, vomiting, diarrhea, and constipation, MS/Extremity: Negative for injury and deformity, Skin: Negative for injury, rash, and discoloration, 17:12 Respiratory: Positive for shortness of breath, Exam: 17:12 Constitutional: This is a well developed, well nourished patient who is awake, alert, ms3 and in no acute distress. Chest/axilla: Normal chest wall appearance and motion. Nontender with no deformity. Cardiovascular: Regular rate and rhythm with a normal S1 and S2. No gallops, murmurs, or rubs. Normal PMI, no JVD. No pulse deficits. Abdomen/GI: Soft, non-tender, with normal bowel sounds. No distension or tympany. No guarding or rebound. No evidence of tenderness throughout. Skin: Warm, dry with normal turgor. Normal color with no rashes, no lesions, and no evidence of cellulitis. 17:12 Respiratory: the patient does not display signs of respiratory distress, Breath sounds: wheezing: expiratory is heard diffusely, 18:32 ECG was reviewed by the Attending Physician. pm1 Vital Signs: 17:17 BP 128 / 78; Pulse 130; Resp 24; Temp 98; Pulse Ox 100% on R/A; bp 18:12 BP 144 / 84; Pulse 90; Resp 16; Pulse Ox 100% on Nebulizer Mask; jb4 19:45 BP 138 / 104; Pulse 96; Resp 16; Pulse Ox 95% on R/A; jb4 MDM: 17:12 Medical Screening Exam initiated pm1 17:12 Differential diagnosis: Chronic Obstructive Pulmonary Disease pneumonia, pulmonary ms3 edema. 17:16 Transition of care: After a detail discussion of the patient's case, care is ms3 transferred to Anjel Camilo NP. 20:13 Data reviewed: vital signs. pm1 20:13 Consideration of Admission/Observation Escalation of care including pm1 admission/observation considered. Patient's shortness of breath resolved. Patient's main concern is his do and do bag getting changed since his nurse that normally does it was sick today. 06/26 17:15 Order name: CBC with Diff; Complete Time: 19:56 ms3 06/26 17:15 Order name: BMP; Complete Time: 19:56 ms3 06/26 17:16 Order name: Chest Single View XRAY; Complete Time: 19:56 ms3 06/26 17:16 Order name: EKG; Complete Time: 17:16 ms3 06/26 17:16 Order name: EKG - Nurse/Tech; Complete Time: 18:32 ms3 06/26 20:11 Order name: Do: change do and do bag; Complete Time: 21:08 pm1 EC:32 Rate is 98 beats/min. Rhythm is regular. Left axis deviation noted. MT interval is pm1 normal. QRS interval is normal. QT interval is normal. No Q waves. Clinical impression: NSR, left axis deviation, nonspecific ST and T wave abnormality, abnormal ECG. Administered Medications: 17:53 Drug: Albuterol Inhalation 2.5 mg Inhalation every 20 minutes x3 Route: Inhalation; [facility] 21:08 Follow up: Response: No adverse reaction; Marked relief of symptoms jb4 17:53 Drug: Ipratropium Inhalation Aerosol 0.5 mg Inhalation once Route: Inhalation; jb4 21:08 Follow up: Response: No adverse reaction; Marked relief of symptoms jb4 Disposition Summary: 06/26/24 20:15 Discharge Ordered Notes: Location: Home pm1 Problem: new pm1 Symptoms: have improved pm1 Condition: Stable pm1 Diagnosis - COPD/ Chronic obstructive pulmonary disease with (acute) exacerbation pm1 Followup: pm1 - With: Emergency Department - When: As needed - Reason: Worsening of condition Followup: pm1 - With: Private Physician - When: 2 - 3 days - Reason: Recheck today's complaints, Continuance of care, Re-evaluation by your physician Discharge Instructions: - Discharge Summary Sheet pm1 - Chronic Obstructive Pulmonary Disease Exacerbation pm1 Forms: - Patient Portal Instructions pm1 Prescriptions: - Medrol (Jamil) 4 mg Oral Tablets, Dose Pack - take 1 tablet ORAL route as directed - follow package instructions; 1 packet; pm1 Refills: 0, Product Selection Permitted - Guaifenesin AC 10-100 mg/5 mL Oral Liquid - take 10 milliliters ORAL route every 4 hours As needed; 240 milliliter; pm1 Refills: 0, Product Selection Permitted Addendum: 06/27/2024 22:12 Co-signature as Attending Physician, Brandon Chiang MD I agree with the assessment s p4 and plan of care. I reviewed the patient's care provided by the Advanced Practice Provider and agree with the diagnosis and treatment plan. Signatures: Dispatcher [employer] Anjel Blum, POLY CUSTOMER DEVELOPMENT REPRESENTATIVE pm1 Minor Jacobson RN RN jb4 Wyatt Rose RN RN Praveen Jack DO DO ms3 Brandon Chiang MD MD sp4
[2024-06-26 21:13] VITALS: TEMP 98
[2024-06-26 21:15] VITALS: BP 138/104; O2SAT 95
--- NOTE | 2024-06-28 15:49 | EKG ---
Test Date: 2024-06-26 Test Time: 18:31:12 [employer] Referee: MAXIMINO MEASUREMENT RESULTS: Intervals: Rate: 98 [place]: 186 QRSD: 90 QT: 360 QTc: 459 [place]: P: 75 NJ: 186 QRS: -52 T: 96 INTERPRETIVE STATEMENTS: Normal sinus rhythm Left axis deviation Nonspecific ST and T wave abnormality Abnormal ECG Compared to ECG 06/23/2024 09:53:14 ST (T wave) deviation now present Accelerated junctional rhythm no longer present Myocardial infarct finding no longer present Prolonged QT interval no longer present Electronically Signed On 06-28-24 15:47:27 CUSTOMER SERVICE CLERK by Ronald Martinez
== END 2024-06-26 21:09 | disposition home or self-care (01) ==
LOC: ER 17:03
DX: J44.1 Chronic obstructive pulmonary disease with (acute) exacerbation (principal); I10 Essential (primary) hypertension
CPT/HCPCS: 93005; 85025; 80048; 36415; 71045; 99284; J7613; J7644

== ENCOUNTER 2024-06-28 15:11 | Emergency (ER) | payer OTHER ==
[2024-06-28] MEDS ORDERED: IBUPROFEN 400 MG TAB ONE (16:07)
[2024-06-28] MEDS ORDERED: HYDROCODONE/APAP 5/325 MG TAB ONE (16:08)
--- NOTE | 2024-06-28 16:10 | EDPHYS ---
Physician Documentation [facility] Name: Shawn Gant Age: 78 yrs Sex: Male : 1945 Arrival Date: 06/28/2024 Time: 15:11 Bed 17 Private MD: ED Physician Michaelle Rehman HPI: 06/28 16:06 This 78 yrs old Male presents to ER via EMS with complaints of Knee Pain. sp3 16:06 78-year-old male with history of diabetes, chronic indwelling Bentley, dementia, COPD, sp3 hypertension now presents to the ED with bilateral knee pain after sliding off his wheelchair due to getting caught in the Bentley catheter. Patient states he can still stand without difficulty. No other injuries reported. ROS otherwise negative.. Historical: - Allergies: 15:34 Polio Virus Vaccines; ko1 - PMHx: 15:34 borderline DM; History of urinary tract infection; Dementia; COPD; Hypertension; ko1 - PSHx: 15:34 multiple ortho; ko1 - Immunization history:: Adult Immunizations up to date. - Infectious Disease History:: Denies. - Social history:: Smoking status: Patient/guardian denies using tobacco, but has a distant history of tobacco abuse. ROS: 16:07 Constitutional: Negative for fever, chills, and weight loss, Eyes: Negative for injury, sp3 pain, redness, and discharge, Neck: Negative for injury, pain, and swelling, Cardiovascular: Negative for chest pain, palpitations, and edema, Respiratory: Negative for shortness of breath, cough, wheezing, and pleuritic chest pain, Abdomen/GI: Negative for abdominal pain, nausea, vomiting, diarrhea, and constipation, Back: Negative for injury and pain, Skin: Negative for injury, rash, and discoloration, Neuro: Negative for headache, weakness, numbness, tingling, and seizure, Psych: Negative for depression, anxiety, suicide ideation, homicidal ideation, and hallucinations, Allergy/Immunology: Negative for hives, rash, and allergies, Endocrine: Negative for neck swelling, polydipsia, polyuria, polyphagia, and marked weight changes, 16:07 All other systems are negative, Exam: 16:08 Constitutional: This is a well developed, well nourished patient who is awake, alert, sp3 and in no acute distress. Head/Face: Normocephalic, atraumatic. Eyes: Pupils equal round and reactive to light, extra-ocular motions intact. Lids and lashes normal. Conjunctiva and sclera are non-icteric and not injected. Cornea within normal limits. Periorbital areas with no swelling, redness, or edema. Chest/axilla: Normal chest wall appearance and motion. Nontender with no deformity. No lesions are appreciated. Cardiovascular: Regular rate and rhythm with a normal S1 and S2. No gallops, murmurs, or rubs. Normal PMI, no JVD. No pulse deficits. Respiratory: Lungs have equal breath sounds bilaterally, clear to auscultation and percussion. No rales, rhonchi or wheezes noted. No increased work of breathing, no retractions or nasal flaring. 16:08 Musculoskeletal/extremity: Clinically normal exam of the knees without signs of trauma or fracture. No effusion noted. Patient can stand without difficulty. Bentley catheter bag was replaced with a leg bag.. Vital Signs: 15:31 BP 116 / 82; Pulse 97; Resp 18; Temp 97.2; Pulse Ox 98% on R/A; ko1 16:54 BP 120 / 78; Pulse 85; Resp 17 S; Pulse Ox 99% on R/A; kc6 MDM: 15:41 Medical Screening Exam initiated sp3 16:08 Data reviewed: vital signs, nurses notes, old medical records. ED course: Bentley sp3 catheter leg bag replaced. Patient will be given Sanford 1 tab and ibuprofen 400 mg and discharged home. Follow-up with PCP. No imaging indicated.. Administered Medications: 16:12 Drug: Sanford PO 5 mg-325 mg 1 tabs PO once Route: PO; kc6 16:30 Follow up: Response: No adverse reaction; Pain is decreased; RASS: Alert and Calm (0) kc6 16:12 Drug: Ibuprofen PO 400 mg PO once Route: PO; kc6 16:30 Follow up: Response: No adverse reaction kc6 Disposition Summary: 06/28/24 16:10 Discharge Ordered Notes: Location: Home sp3 Condition: Stable sp3 Diagnosis - Bilateral knee pain, contusion sp3 Followup: sp3 - With: Private Physician - When: Upon discharge from the Emergency Department - Reason: Continuance of care Discharge Instructions: - Discharge Summary Sheet sp3 - Fall Prevention in the Home, Adult sp3 Forms: - Medication Reconciliation Form sp3 - Antibiotic Education sp3 - Prescription Opioid Use sp3 - Patient Portal Instructions sp3 - Leadership Thank You Letter sp3 Signatures: Michaelle Rehman MD MD sp3 Susan Rosado RN RN kc6 Ailyn Birch RN RN ko1
--- NOTE | 2024-06-28 16:10 | ER ---
Nurse's Notes [facility] Name: Shawn Gant Age: 78 yrs Sex: Male : 1945 Arrival Date: 06/28/2024 Time: 15:11 Bed 17 Private MD: Diagnosis: Bilateral knee pain, contusion Presentation: 06/28 15:31 Chief complaint: EMS states: I got tangled up in my do and slid off the side of the ko1 bed. Coronavirus screen: At this time, the client does not indicate any symptoms associated with coronavirus-19. Ebola Screen: No symptoms or risks identified at this time. Initial Sepsis Screen: Does the patient meet any 2 criteria? No. Patient's initial sepsis screen is negative. Does the patient have a suspected source of infection? No. Patient's initial sepsis screen is negative. Risk Assessment: Do you want to hurt yourself or someone else? Patient reports no desire to harm self or others. Onset of symptoms is unknown. 15:31 Method Of Arrival: EMS: [facility] ko1 15:31 Acuity: MARIO 3 ko1 Triage Assessment: 15:34 General: Appears in no apparent distress. Behavior is calm, cooperative, appropriate ko1 for age. Pain: Complains of pain in right knee and left knee. Historical: - Allergies: 15:34 Polio Virus Vaccines; ko1 - PMHx: 15:34 borderline DM; History of urinary tract infection; Dementia; COPD; Hypertension; ko1 - PSHx: 15:34 multiple ortho; ko1 - Immunization history:: Adult Immunizations up to date. - Infectious Disease History:: Denies. - Social history:: Smoking status: Patient/guardian denies using tobacco, but has a distant history of tobacco abuse. Screenin:29 [facility] ED Fall Risk Assessment (Adult) History of falling in the last 3 months, kc6 including since admission No falls in past 3 months (0 pts) Confusion or Disorientation No (0 pts) Intoxicated or Sedated No (0 pts) Impaired Gait No (0 pts) Mobility Assist Device Used No (0 pt) Altered Elimination No (0 pt) Score/Fall Risk Level 0 - 2 = Low Risk Oriented to surroundings, Maintained a safe environment. Abuse screen: Denies threats or abuse. Denies injuries from another. Nutritional screening: No deficits noted. Tuberculosis screening: No symptoms or risk factors identified. Assessment: 16:27 General: Appears in no apparent distress. comfortable, well groomed, well developed, kc6 Behavior is calm, cooperative, appropriate for age. Neuro: Level of Consciousness is awake, alert, obeys commands, Oriented to person, place, time, situation, Appropriate for age. Cardiovascular: Capillary refill < 3 seconds. Respiratory: Airway is patent Trachea midline Respiratory effort is even, unlabored, Respiratory pattern is regular, symmetrical. GI: No signs and/or symptoms were reported involving the gastrointestinal system. : No signs and/or symptoms were reported regarding the genitourinary system. Do in place to gravity drainage clamped. EENT: No signs and/or symptoms were reported regarding the EENT system. Derm: No signs and/or symptoms reported regarding the dermatologic system. Skin is intact, is healthy with good turgor, Skin is pink, warm \T\ dry. Musculoskeletal: No signs and/or symptoms reported regarding the musculoskeletal system. Circulation, motion, and sensation intact. Capillary refill < 3 seconds, Range of motion: intact in all extremities. 16:39 Reassessment: d/c pending transport home. pt states his neighbor will come pick him up. kc6 Vital Signs: 15:31 BP 116 / 82; Pulse 97; Resp 18; Temp 97.2; Pulse Ox 98% on R/A; ko1 16:54 BP 120 / 78; Pulse 85; Resp 17 S; Pulse Ox 99% on R/A; kc6 ED Course: 15:12 Patient arrived in ED. im 15:15 Michaelle Rehman MD is Attending Physician. sp3 15:34 Triage completed. ko1 15:34 Arm band placed on right wrist. Patient placed in waiting room, Patient notified of ko1 wait time. 15:54 Susan Rosado, FIONA is Primary Nurse. kc6 16:28 Patient has correct armband on for positive identification. Bed in low position. Call kc6 light in reach. Side rails up X 1. Pulse ox on. NIBP on. Door closed. Noise minimized. Lights dimmed. Warm blanket given. Pillow given. 16:28 Patient maintains SpO2 saturation greater than 95% on room air. kc6 16:54 No provider procedures requiring assistance completed. Patient did not have IV access kc6 during this emergency room visit. Administered Medications: 16:12 Drug: Ashton PO 5 mg-325 mg 1 tabs PO once Route: PO; kc6 16:30 Follow up: Response: No adverse reaction; Pain is decreased; RASS: Alert and Calm (0) kc6 16:12 Drug: Ibuprofen PO 400 mg PO once Route: PO; kc6 16:30 Follow up: Response: No adverse reaction kc6 Medication: 16:54 VIS not applicable for this client. kc6 Outcome: 16:10 Discharge ordered by . keke3 16:54 Discharged to home via wheelchair, with friend, kc6 16:54 Condition: good 16:54 Discharge instructions given to patient, Instructed on discharge instructions, follow up and referral plans. Demonstrated understanding of instructions, follow-up care, 16:55 Patient left the ED. kc6 Signatures: Michaelle Rehman MD MD sp3 Susan Rosado RN RN kc6 Ailyn Birch RN RN ko1 Suzie Suazo
[2024-06-28 17:05] VITALS: TEMP 97.2
[2024-06-28 17:07] VITALS: BP 120/78; O2SAT 99
== END 2024-06-28 16:55 | disposition home or self-care (01) ==
LOC: ER 15:11
DX: S80.02XA Contusion of left knee, initial encounter (principal); S80.01XA Contusion of right knee, initial encounter
CPT/HCPCS: 99284

== ENCOUNTER 2024-06-29 14:32 | Inpatient (IN) | payer OTHER ==
[2024-06-29 15:19] LABS: Absolute Lymphocytes (CBC) 0.9 K/uL (0.7-4.9); Absolute Monocytes 0.8 K/uL (0.1-1.3); Absolute Neutrophil 10.1 K/uL (1.8-8.0); Basophils % 0.3 % (0-1.3); Eosinophils % 0.2 % (0-4.4); Hematocrit 38.9 % (39.6-49.0); Hemoglobin 12.9 g/dL (13.6-17.9); Lymphocytes % 7.7 % (15.3-44.8); MCH 31.6 pg (27.0-35.0); MCHC 33.3 g/dL (32.0-36.0); Neutrophils % 84.8 % (41.7-73.7); Nucleated Red Blood Cells % 0.1 % (0-0); Platelets 246 thou/uL (152-406); RBC Red Blood Cell Count 4.09 M/uL (4.33-5.43); Red Cell Distribution Width 16.3 % (12.1-15.2)
--- NOTE | 2024-06-29 15:29 | RAD REPORT ---
EXAMINATION: ONE VIEW CHEST XR CLINICAL INDICATION: DYSPNEA TECHNIQUE: Frontal chest projection is submitted. Examination is limited by patient positioning and t echnique. COMPARISON: 06/26/2024 FINDINGS: Linear opacity in the left retrocardiac region may represent atelectasis or infiltrate. Diffuse emphy sema. The heart is upper limit of normal in size. Old left posterior rib fractures.
[2024-06-29 15:32] LABS: PT Prothrombin Time 11.8 SECONDS (9.4-12.5); PTT, Activated Partial Thromb 28.3 SECONDS (24.3-36.9); Protime INR 1.06
[2024-06-29 15:40] LABS: Albumin 3.3 g/dL (3.4-5.0); Albumin/Globulin Ratio 0.9 (1.1-1.8); Anion Gap 10.2 mEq/L (5.0-15.0); Bilirubin Total 0.9 mg/dL (0.2-1.0); Globulin 3.6 g/dL (2.3-3.5); Potassium 3.2 mEq/L (3.5-5.1); Protein, Total 6.9 g/dL (6.4-8.2)
[2024-06-29 15:42] LABS: Troponin High Sensitivity 83.4 pg/mL (<58.9)
--- NOTE | 2024-06-29 16:05 | RAD REPORT ---
EXAM: CT brain without contrast HISTORY: ams COMPARISON: 06/05/2022 TECHNIQUE: Multiple contiguous axial images were obtained and a CT of the brain without contrast. Sag ittal and coronal reformats were performed. One or more of the following dose reduction techniques were used: Automated exposure control, adjust ment of the mA and/or kV according to patient size, and/or iterative reconstruction. FINDINGS: No evidence of hydrocephalus, intracranial hemorrhage, or extra-axial fluid collection. Mild brain atrophy with mild periventricular and deep white matter chronic microvascular ischemic ch anges present. No evidence of midline shift or areas of brain edema. Left vertebral atherosclerosis. The calvarium is intact. The visualized paranasal sinuses and mastoid air cells are essentially clear . IMPRESSION: No evidence of acute intracranial abnormality.
[2024-06-29 16:19] LABS: Specific Gravity 1.015 (1.005-1.030); Sqamous Epithelial <5 /HPF (None Seen); Urine Bacteria None Seen /HPF (<20); Urine Bilirubin NEGATIVE (Negative); Urine Blood 3+ (OVER) (Negative); Urine Clarity Extremely Turbid (Clear); Urine Color Dark-Brown (Yellow); Urine Crystals Unidentified Few /HPF (None Seen); Urine Culture Reflex Order REFLEXED; Urine Glucose NEGATIVE (Negative); Urine Ketones 1+ (Negative); Urine Micro Reflex YN NO BILL MICROSCOPIC; Urine Mucus Slight /HPF (None Seen); Urine Nitrite NEGATIVE (Negative); Urine Protein 2+ (Negative); Urine RBC >50 /HPF (None Seen); Urine Urobilinogen Normal (Normal); Urine WBC >50 /HPF (<5); Urine WBC Clump Few /HPF (None Seen); Urine Yeast (Budding) Few /HPF (None Seen)
[2024-06-29 16:28] LABS: Barbiturates NEGATIVE (NEGATIVE); Benzodiazepines POSITIVE (NEGATIVE); Cocaine NEGATIVE (NEGATIVE); METHAMPHETAM NEGATIVE (NEGATIVE); Methadone NEGATIVE (NEGATIVE); Opiates POSITIVE (NEGATIVE); Phencyclidine NEGATIVE (NEGATIVE); THC Cannibis NEGATIVE (NEGATIVE)
[2024-06-29 16:52] LABS: SARS-CoV-2 Antigen CONTROL BLUE LINE VIS/BG OK; SARS-CoV-2 Antigen Rapid Res Negative (Negative)
--- NOTE | 2024-06-29 17:11 | RAD REPORT ---
EXAM: CT CHEST, ABDOMEN AND PELVIS WITH CONTRAST CLINICAL INDICATION: hematuria, AMS;Dyspnea TECHNIQUE: CT chest, abdomen and pelvis was performed, following the administration of contrast, as p er department protocol. Axial, sagittal and coronal reconstructions were obtained. One or more of the following dose reduction techniques were used: Automated exposure control, adjustment of the mA a nd/or kV according to patient size, and/or iterative reconstruction. Unless otherwise specified, incidental findings do not require dedicated imaging follow-up. COMPARISON: 05/30/2024 FINDINGS: LUNGS: The lungs are mildly emphysematous. PLEURA: No pleural effusion. No pneumothorax. MEDIASTINUM AND LYMPH NODES: No mediastinal mass or fluid collection. Normal size mediastinal, hilar, and axillary lymph nodes. OSSEOUS STRUCTURES AND CHEST WALL: Old left thoracic rib fractures. LIVER: The liver demonstrates mild fatty infiltration. No focal lesion or biliary dilatation is seen. Grossly unremarkable gallbladder. PANCREAS: No mass, ductal dilation, or chantal-pancreatic fluid. 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 ADRENALS: Normal; no mass. KIDNEYS: Normal size and contour. No hydronephrosis. URINARY BLADDER: Normal contour. GASTROINTESTINAL TRACT: No bowel obstruction, free air, significant free fluid or abscess. APPENDIX: Normal appendix. LYMPH NODES: No lymphadenopathy. MUSCULOSKELETAL: No acute or suspicious osseous abnormality. OTHER: Bentley catheter in the urinary bladder. IMPRESSION: COPD. 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
--- NOTE | 2024-06-29 19:01 | ER ---
Nurse's Notes [facility] Name: Shawn Gant Age: 78 yrs Sex: Male : 1945 Arrival Date: 06/29/2024 Time: 14:32 Bed 3 Private MD: Diagnosis: UTI/ Urinary tract infection, site not specified;Mechanical complication of urinary (indwelling) catheter;Altered mental status, unspecified;COPD/ Chronic obstructive pulmonary disease, unspecified Presentation: 06/29 14:35 Chief complaint: EMS states: 911 CALLED BY NEIGHBOR "HE'S ALL MESSED UP". PT SEEN Y/D, bp NOTED DECREASE IN MENTATION SINCE THEN, CHRONICALLY NON-COMPLIANT WITH HOME CARE. Coronavirus screen: At this time, the client does not indicate any symptoms associated with coronavirus-19. Ebola Screen: No symptoms or risks identified at this time. Initial Sepsis Screen: Does the patient meet any 2 criteria? Altered Mental Status. No. Patient's initial sepsis screen is negative. Does the patient have a suspected source of infection? No. Patient's initial sepsis screen is negative. Risk Assessment: Do you want to hurt yourself or someone else? Patient reports no desire to harm self or others. Onset of symptoms is unknown. Care prior to arrival: Medication(s) given: Albuterol Neb x 2, Atrovent Neb x 1, IV initiated. 18 GA, in the right forearm, Glucose check: 132 Med neb given. 14:35 Method Of Arrival: EMS: [facility] bp 14:35 Acuity: MARIO 2 bp Triage Assessment: 14:38 General: Appears distressed, Behavior is listless. Pain: Unable to use pain scale. Does bp not appear to understand pain scale. EENT: No deficits noted. Neuro: Level of Consciousness is listless, Oriented to none. Cardiovascular: Rhythm is sinus rhythm. Respiratory: Reports shortness of breath Onset: The symptoms/episode began/occurred at an unknown time. the patient has mild shortness of breath. GI: No signs and/or symptoms were reported involving the gastrointestinal system. : No signs and/or symptoms were reported regarding the genitourinary system. Derm: No deficits noted. Musculoskeletal: No deficits noted. Historical: - Allergies: 14:38 Polio Virus Vaccines; bp - PMHx: 14:38 borderline DM; COPD; Dementia; History of urinary tract infection; Hypertension; bp - PSHx: 14:38 multiple ortho; bp - Immunization history:: Adult Immunizations up to date. - Infectious Disease History:: Denies. - Social history:: Smoking status: unknown. Screenin:18 [facility] ED Fall Risk Assessment (Adult) History of falling in the last 3 months, ko1 including since admission No falls in past 3 months (0 pts) Confusion or Disorientation Yes (5 pts) Intoxicated or Sedated No (0 pts) Impaired Gait Yes (1 pt) Mobility Assist Device Used Yes (1 pt) Altered Elimination Yes (1 pt) Score/Fall Risk Level 3 or more points = High Risk Oriented to surroundings, Maintained a safe environment, Educated pt \\T\\ family on fall prevention, incl call for assistance when getting out of bed, Assessed \\T\\ reinforced patient's understanding of fall precautions, Provided non-skid footwear, Hourly rounding (assess needs \\T\\ fall precautionary measures) done, Used ambulatory aids as needed (educated on \\T\\ assisted with), Used gait belt as appropriate Implemented a Fall Risk Plan of Care, Remained w/in arm's length of patient and in sight while toileting, Offered frequent toileting (1:1 observation), Remained with patient while ambulating, Utilized family, sitter, or virtual pharmacist helper as indicated. Abuse screen: Denies threats or abuse. Denies injuries from another. Nutritional screening: No deficits noted. Tuberculosis screening: No symptoms or risk factors identified. Assessment: 14:00 General: Appears ill, unkempt, Behavior is drowsy. Pain: Complains of pain in pelvis. ko1 Neuro: Level of Consciousness is confused, lethargic. Cardiovascular: No deficits noted. Cardiovascular: Capillary refill < 3 seconds JVD is present Patient's skin is warm and dry. Cardiovascular: Rhythm is regular. Respiratory: Airway is patent Respiratory effort is even, labored, Breath sounds with crackles bilaterally. Breath sounds are diminished bilaterally. GI: No deficits noted. : Do in place clamped. EENT: No deficits noted. Derm: No deficits noted. Musculoskeletal: Range of motion: limited in BLE Swelling present in bilat ankles foot drop bilaterally. 18:18 Reassessment: urine is becoming more clear with scattered old clots present, flowing ko1 without difficulty. 19:10 General: Appears in no apparent distress. comfortable. cp4 19:10 Pain: Denies pain. Neuro: Level of Consciousness is awake, alert, obeys commands, cp4 Oriented to person, place, situation. Cardiovascular: Patient's skin is warm and dry. Respiratory: Airway is patent Respiratory effort is even, labored. GI: No signs and/or symptoms were reported involving the gastrointestinal system. : Do in place to gravity drainage. EENT: No signs and/or symptoms were reported regarding the EENT system. Derm: No signs and/or symptoms reported regarding the dermatologic system. Musculoskeletal:. 20:00 Reassessment: Patient appears in no apparent distress at this time. Patient and/or cp4 family updated on plan of care and expected duration. Pain level reassessed. Patient is alert, oriented x 3, equal unlabored respirations, skin warm/dry/pink. 21:00 Reassessment: Patient appears in no apparent distress at this time. Patient and/or cp4 family updated on plan of care and expected duration. Pain level reassessed. Patient is alert, oriented x 3, equal unlabored respirations, skin warm/dry/pink. Vital Signs: 14:35 BP 123 / 68; Pulse 92; Resp 30; Temp 97.5; Pulse Ox 97% on R/A; bp 16:30 BP 128 / 89; Pulse 87; Resp 15; Pulse Ox 99% ; ko1 18:19 BP 148 / 86; Pulse 83; Resp 15; Pulse Ox 99% ; ko1 19:00 BP 150 / 90; Pulse 79; Resp 18; Pulse Ox 97% ; cp4 20:22 BP 146 / 83; Pulse 76; Resp 18; Pulse Ox 100% ; cp4 21:38 BP 146 / 81; Pulse 74; Resp 18; Pulse Ox 99% ; cp4 ED Course: 14:35 Patient arrived in ED. bp 14:37 Triage completed. bp 14:38 Arm band placed on. bp 14:39 Wyatt Rose, FIONA is Primary Nurse. bp 14:45 Lorri Head PA-C is PHCP. sb4 14:45 Parker Martinez MD is Attending Physician. sb4 15:00 Do cath removed intact, balloon deflated, multiple large blood clots came out as ko1 well as bloody urine. 15:26 Chest Single View XRAY In Process Unspecified. EDMS 15:30 Patient has correct armband on for positive identification. Allergy band placed. Fall ko1 risk band placed. Placed in gown. Bed in low position. Call light in reach. Side rails up X2. Provided Education on: labs, do. Client placed on continuous cardiac and pulse oximetry monitoring. NIBP monitoring applied. engine monitor on. Door closed. Noise minimized. Lights dimmed. Warm blanket given. Pillow given. 15:30 No provider procedures requiring assistance completed. Initial lab(s) drawn, by me, ko1 sent to lab. Maintain EMS IV. Dressing intact. Good blood return noted. Site clean \\T\\ dry. Gauge \\T\\ site: 18g right AC. Flushed with 10 mL NS. 15:34 Blood Culture Adult (2) Sent. ko1 15:34 CMP Sent. ko1 15:34 Lactate w/ 2H reflex if indic. Sent. ko1 15:35 Troponin High Sensitivity Sent. ko1 15:57 Head Brain Wo Cont CT In Process Unspecified. EDMS 16:14 Coud inserted, using sterile technique, 18 Fr. Returned bloody urine. To gravity ko1 drainage. Urine specimen collected. Patient tolerated well. 16:20 Urine collected: Do catheter specimen, tea colored, blood tinged. ko1 16:22 Urine Culture Sent. ko1 16:22 UDS Sent. ko1 16:22 Flu Sent. ko1 16:22 RSV Sent. ko1 16:22 SARS RAPID Sent. ko1 16:46 EKG done, by ED staff, reviewed by Lorri Head PA-C. ko1 16:57 Chest Abdomen Pelvis W Con CT In Process Unspecified. EDMS 19:00 Ken Alarcon MD is Hospitalizing Provider. sb4 19:10 Patient admitted, IV remains in place. cp4 Administered Medications: 19:27 Drug: Meropenem IV 1 grams IV at calculated rate once; (mix in NS 100 mL) Route: IV; cp4 Rate: calculated rate; Site: right antecubital; 20:13 Follow up: Response: No adverse reaction; IV Status: Completed infusion cp4 19:30 Not Given (Physician Discretion): [id number] mg PO once cp4 Medication: 16:18 VIS not applicable for this client. ko1 Output: 18:53 Urine: 600ml (Do); Total: 600ml. ko1 Outcome: 19:00 Decision to Hospitalize by Provider. sb4 19:10 Admitted to Med/surg accompanied by tech, via stretcher, with chart, cp4 19:10 Condition: stable 19:10 Instructed on the need for admit, 22:04 Patient left the ED. ha1 Signatures: Dispatcher [employer] EDMS Wyatt Rose, RN RN bp Юлия Noel RN RN ha1 Ailyn Birch RN RN ko1 Lorri Head PAStevanC PA-C sb4 Dee Dee Philip cp4 Corrections: (The following items were deleted from the chart) 17:01 14:00 BP 128 / 89; Pulse 87bpm; Resp 15bpm; Pulse Ox 99%; ko1 ko1 20:22 19:00 BP 146 / 83; Pulse 76bpm; Resp 18bpm; Pulse Ox 100%; cp4 cp4
--- NOTE | 2024-06-29 19:01 | EDPHYS ---
Physician Documentation [facility] Name: Shawn Gant Age: 78 yrs Sex: Male : 1945 Arrival Date: 06/29/2024 Time: 14:32 Bed 3 Private MD: ED Physician Parker Martinez HPI: 06/29 18:46 This 78 yrs old Male presents to ER via EMS with complaints of Shortness Of Breath, sb4 Altered Mental Status. 18:46 neighbor called EMS for altered mental status, noted to be in mild respiratory distress sb4 by EMS, and was given breathing treatment, magnesium, and solumedrol, improved work of breathing. . Historical: - Allergies: 14:38 Polio Virus Vaccines; bp - PMHx: 14:38 borderline DM; COPD; Dementia; History of urinary tract infection; Hypertension; bp - PSHx: 14:38 multiple ortho; bp - Immunization history:: Adult Immunizations up to date. - Infectious Disease History:: Denies. - Social history:: Smoking status: unknown. ROS: 19:38 Constitutional: Negative for fever, chills, and weight loss, sb4 19:38 Respiratory: Positive for shortness of breath, 19:38 All other systems are negative, Exam: 19:38 Head/Face: Normocephalic, atraumatic. Eyes: Extra-ocular motions intact. Periorbital sb4 areas with no swelling, redness, or edema. ENT: Mucous membranes moist. Cardiovascular: Regular rate and rhythm with a normal S1 and S2. Abdomen/GI: Soft, non-tender, no distension. Skin: Warm, dry with normal turgor. Normal color with no rashes, no lesions, and no evidence of cellulitis. 19:38 Constitutional: The patient appears alert, awake, in obvious distress, moderately distressed, 19:38 Respiratory: mild respiratory distress is noted, Respirations: tachypnea, Breath sounds: wheezing: is scattered, 19:38 : a do is noted, clamped, no output, Vital Signs: 14:35 BP 123 / 68; Pulse 92; Resp 30; Temp 97.5; Pulse Ox 97% on R/A; bp 16:30 BP 128 / 89; Pulse 87; Resp 15; Pulse Ox 99% ; ko1 18:19 BP 148 / 86; Pulse 83; Resp 15; Pulse Ox 99% ; ko1 19:00 BP 150 / 90; Pulse 79; Resp 18; Pulse Ox 97% ; cp4 20:22 BP 146 / 83; Pulse 76; Resp 18; Pulse Ox 100% ; cp4 21:38 BP 146 / 81; Pulse 74; Resp 18; Pulse Ox 99% ; cp4 MDM: 14:45 Medical Screening Exam initiated sb4 19:39 Data reviewed: vital signs, nurses notes, EMS record, lab test result(s), EKG, sb4 radiologic studies, and as a result, I will admit patient. Consideration of Admission/Observation Patient was admitted/placed on observation. Management of patient was discussed with the following: Primary Care Provider: Dr. Alarcon, agrees to admit. Care significantly affected by the following chronic conditions: Diabetes, Hypertension, Chronic Obstructive Pulmonary Disease. Counseling: I had a detailed discussion with the patient and/or guardian regarding the historical points, exam findings, and any diagnostic results supporting the discharge/admit diagnosis, the presence of at least one elevated blood pressure reading (>120/80) during this emergency department visit, lab results, radiology results, the need for further work-up and treatment in the hospital. ED course: do catheter was not in bladder, was clamped improperly after exchanging yesterday. RN was able to remove and replace, there were several blood clots. urine eventually cleared up after replacement. urine is significant for UTI, has history of ESBL. 06/29 14:52 Order name: Blood Culture Adult (2) 4 06/29 14:52 Order name: CBC with Diff; Complete Time: 15:27 sb4 06/29 14:52 Order name: CMP; Complete Time: 15:43 sb4 06/29 14:52 Order name: Lactate w/ 2H reflex if indic.; Complete Time: 15:40 sb4 06/29 14:52 Order name: Protime (+inr); Complete Time: 15:35 sb4 06/29 14:52 Order name: Ptt, Activated; Complete Time: 15:35 sb4 06/29 14:52 Order name: SARS RAPID; Complete Time: 16:53 sb4 06/29 14:52 Order name: Flu; Complete Time: 16:56 sb4 06/29 14:52 Order name: RSV; Complete Time: 16:53 sb4 06/29 14:53 Order name: Troponin High Sensitivity; Complete Time: 15:43 sb4 06/29 14:59 Order name: UDS; Complete Time: 16:29 sb4 06/29 14:59 Order name: UAM; Complete Time: 16:20 sb4 06/29 16:21 Order name: Urine Culture EDMS 06/29 14:52 Order name: Chest Single View XRAY; Complete Time: 15:35 sb4 06/29 14:59 Order name: Head Brain Wo Cont CT; Complete Time: 16:06 sb4 06/29 16:12 Order name: Chest Abdomen Pelvis W Con CT; Complete Time: 17:31 iw 06/29 14:52 Order name: Accucheck; Complete Time: 16:25 sb4 06/29 14:52 Order name: Cardiac monitoring; Complete Time: 15:34 sb4 06/29 14:52 Order name: EKG - Nurse/Tech; Complete Time: 16:44 sb4 06/29 14:52 Order name: IV Saline Lock - Large Bore; Complete Time: 15:34 sb4 06/29 14:52 Order name: Labs collected and sent; Complete Time: 15:34 sb4 06/29 14:52 Order name: O2 Per Protocol; Complete Time: 15:34 sb4 06/29 14:52 Order name: O2 Sat Monitoring; Complete Time: 15:34 sb4 06/29 14:52 Order name: Vital Signs; Complete Time: 15:34 sb4 06/29 14:59 Order name: Misc. Order: replace do; Complete Time: 16:22 sb4 EC:59 Rate is 82 beats/min. Rhythm is regular, Normal Sinus Rhythm. Left axis deviation sb4 noted. TN interval is normal at 154 msec. QRS interval is normal at 90 msec. QT interval is normal at 402 msec. No Q waves. T waves are Normal. No ST changes noted. Clinical impression: No evidence of ischemia. Interpreted by me. Reviewed by me. Administered Medications: 19:27 Drug: Meropenem IV 1 grams IV at calculated rate once; (mix in NS 100 mL) Route: IV; cp4 Rate: calculated rate; Site: right antecubital; 20:13 Follow up: Response: No adverse reaction; IV Status: Completed infusion cp4 19:30 Not Given (Physician Discretion): [id number] mg PO once cp4 Disposition Summary: 06/29/24 19:00 Hospitalization Ordered Notes: Hospitalization Status: Inpatient Admission sb4 Provider: Ken Alarcon Location: Telemetry/MedSurg (Inpatient) sb4 Condition: Stable sb4 Problem: new sb4 Symptoms: have improved sb4 Bed/Room Type: Standard sb4 Room Assignment: 222(06/29/24 20:13) hw Diagnosis - UTI/ Urinary tract infection, site not specified sb4 - Mechanical complication of urinary (indwelling) catheter sb4 - Altered mental status, unspecified sb4 - COPD/ Chronic obstructive pulmonary disease, unspecified sb4 Forms: - Medication Reconciliation Form sb4 - SBAR form sb4 - Leadership Thank You Letter sb4 Signatures: Dispatcher [employer] EDMS Wyatt Rose, RN RN Lorri Ruvalcaba PA-C PASantiago sb4 Dee Dee Philip cp4 Nicole Mccarty Corrections: (The following items were deleted from the chart) 14:53 14:53 Troponin High Sensitivity+C.LAB.BRZ ordered. EDMS EDMS 15:00 15:00 URINE DRUG SCREEN+UC.LAB.BRZ ordered. EDMS EDMS 15:00 15:00 Urinalysis W/Microscopic+U.LAB.BRZ ordered. EDMS EDMS 15:00 15:00 Head Brain Wo Cont+CT.RAD.BRZ ordered. EDMS EDMS 16:13 16:13 Chest Abdomen Pelvis W Con+CT.RAD.BRZ ordered. EDMS EDMS 20:13 19:00 sb4 hw
[2024-06-29] MEDS ORDERED: NA CHLORIDE 0.9% 100 ML ONE (19:23)
[2024-06-29] MEDS ORDERED: Meropenem 1000 MG/VIAL IV ONE (19:23)
[2024-06-30] MEDS: ALBUTEROL 2.5 MG/3 ML NEB SOL NEB SCH (03:41)
[2024-06-30] MEDS ORDERED: ACETAMINOPHEN 500 MG TAB PO PRN (03:41)
[2024-06-30] MEDS: VANCOMYCIN HCL 125 MG CAPSULE PO SCH (04:51)
[2024-06-30] MEDS: ALPRAZOLAM 0.25 MG TABLET PO ONE (06:09)
[2024-06-30] MEDS: PANTOPRAZOLE 40MG TABLET PO SCH (06:09)
[2024-06-30] MEDS: Meropenem 1,000 MG in NA CHLORIDE 0.9% 100 ML IV SCH (08:25)
[2024-06-30] MEDS: ENOXAPARIN 40 MG/0.4 ML SQ SCH (08:26)
[2024-06-30] MEDS: ALPRAZOLAM 0.25 MG TABLET PO PRN (14:47)
[2024-06-30] MEDS: CLOPIDOGREL 75 MG TABLET PO ONE (16:57)
[2024-06-30] MEDS: POTASSIUM CL SA 10 MEQ TAB PO ONE (16:57)
[2024-06-30] MEDS: ASPIRIN EC 81 MG TAB PO ONE (16:57)
[2024-06-30] MEDS: HYDROCODONE/APAP 5/325 MG TAB PO PRN (20:32)
--- NOTE | 2024-06-30 20:46 | HP ---
Date of Admission: 06/30/2024 Chief Complaint: Altered mental status. History Of Present Illness: This is a 78-year-old male patient who has indwelling Bentley catheter for almost 2 years now, came into emergency room with altered mental status. The patient lives at home with his and his 's health has not been good either lately and currently she is in hospital. The patient is very noncompliant with medication as well as office followup appointments. He was in our hospital about 2 months ago and at that time he had myocardial infarction and had cardiac cath done at our hospital. Dr. Aguilar arranged for him to get angioplasty done, which was done at outside hospital. After that, the patient came to see me for followup at office within few days after he came home. He was advised to come back to see me in 2 weeks, and he never returned back for any further followup at office. My office staff has contacted him, asking him to come back for followup, and he still has not returned back. In fact he has ended up coming back to our emergency room about 8 times and this is 9th visit. He came in with altered mental status, was admitted to the hospital with urinary tract infection and toxic encephalopathy as a result of that. Last night, he had lot of anxiety and panic attack. This morning, when I saw him, he was appearing better compared to last night. When I asked him question about his medication as I was concerned about his noncompliance with medication, and he could not tell me exactly the name of the antiplatelet therapy that he was discharged to go home with after the angioplasty procedure. As per my instruction, nursing staff from the hospital did call [facility] to find out that the patient was prescribed Brilinta 90 mg 2 times a day and he picked up that prescription for 1 month supply on May 02, 2024, and after that he has not picked up any more prescription, so obviously he has not taken this antiplatelet therapy in last 1 month. He was also advised to take aspirin 81 mg daily, and I am not sure whether he is taking that regularly or not. Medications: We do not know exactly what medications he takes at home but as per prior hospital record his list includes, Albuterol inhaler 2 puffs every 4 hours as needed, albuterol and Atrovent nebulizer treatment every 4 hours as needed, tamsulosin 0.4 mg takes 2 capsules daily, finasteride 5 mg daily, montelukast 10 mg daily, Folbic 1 tabletdaily, Trelegy inhaler 1 puff daily, aspirin 81 mg daily, alprazolam 2 mg takes 1/3rd tablet 3 times a day as needed, paroxetine 40 mg daily, metoprolol succinate 25 mg daily, vancomycin 125 mg every other day, Rixulti 0.5 mg daily, pantoprazole 40 mg daily, sodium chloride 1 gm daily. Allergies: NO KNOWN ALLERGIES. Review of Systems: PRIMER SUPERVISOR: As mentioned above. All other systems reviewed and negative. Past Medical History: Significant for recurrent Clostridium difficile colitis problem with initial episode in August of 2023. past medical history also significant for headache, type 2 diabetes mellitus, COPD, hypertension, hyperlipidemia, diverticulosis, benign prostatic hypertrophy with lower urinary tract symptoms, osteoarthritis at multiple sites, anxiety, panic attacks and NSTEMI in April 2024. Past Surgical History: Hernia repair and hip surgery, PTCA with stent placement in April 2024. Social History: Prior history of smoking, not at present time. Use of alcohol occasional. Family History: Mother had lung cancer Physical Examination: Vital Signs: This morning, temperature 97.8, pulse 72, respiratory rate 20, blood pressure 136/94, oxygen saturation 99% on room air. Height 6 feet. Weight 184 pounds. General: Awake, alert, oriented, not in distress. HEENT: Head atraumatic, normocephalic. Conjunctivae nonerythematous. Sclerae white. Mouth, no thrush or edema noted. Ears/Nose, no mass, lesion, discharge noted. Neck: Supple. No JVD, lymph nodes, bruit, thyromegaly noted. Lungs: Bilateral good equal air entry. Clear to auscultation. No rhonchi. No rales. Heart: Normal heart sounds, no murmur or gallop. Abdomen: Soft, bowel sounds normal. No guarding, rigidity, tenderness, mass, hepatosplenomegaly, distention, or bruit noted. Extremities: No leg edema. No calf tenderness. Skin: No rash, ulcer, cellulitis. Lymphatics: No lymph node enlargement in neck, supraclavicular, infraclavicular region. Neuro: The patient has generalized weakness. Power is grade 4/5 in both upper and both lower extremities, but no focal neurological deficit. Chest: Unremarkable. External Genitalia: He has a Bentley catheter in place and this was replaced in the emergency room yesterday. Rectal: Deferred. Laboratory Data: WBC 12, hemoglobin 12.9, platelets 246. Sodium 134, potassium 3.2, chloride 102, bicarb 25, BUN 22, creatinine 1.38, glucose 151. Lactic acid 1.3. Troponin 83.4. Liver function test unremarkable. Urinalysis: 250 leukocyte esterase, RBC more than 50, WBC more than 50. Bacteria not seen, blood 3+. Toxicology screen: Positive for opiate and benzodiazepine. COVID-19 test: Negative. His CAT scan of the chest, abdomen, pelvis shows changes of COPD. Small triangular defect in the spleen, likely infarct, new since June 09, 2024. CAT scan of the brain without contrast was negative for any acute changes. Chest x-ray shows linear opacity in the left retrocardiac region, may be atelectasis or infiltrate. Diffuse emphysema present. Old left-sided rib fractures. Impression: 1. Toxic encephalopathy. 2. Rule out sepsis. 3. Urinary tract infection. 4. Severe chronic obstructive pulmonary disease. 5. Clostridium difficile colitis, recurrent. 6. Anxiety. 7. Depression. 8. Benign prostatic hypertrophy with lower urinary tract symptoms. 9. Coronary artery disease. 10. Hypertension. 11. Type 2 diabetes mellitus. 12. Hyperlipidemia. 13. Diverticulosis. 14. Osteoarthritis, multiple sites. Plan: Admit the patient to hospital for further evaluation and management of this problem. The patient is appropriate for inpatient and is expected to spend 2 midnights in hospital. The patient came in with concern about possibility of sepsis, urinary tract infection, and toxic encephalopathy. Only source of infection at this time is his urinary tract infection with his indwelling Bentley catheter. We will go ahead and start empiric antibiotic, meropenem. After I saw him today, his blood culture was reported as positive for gram-positive cocci, so we will go ahead and add IV vancomycin for him. Originally oral vancomycin was ordered for his Clostridium difficile colitis, which is a recurrent problem and I have advised him to take that medication every other day 125 mg dose, and I am not sure whether he is taking that as advised and prescribed to him or not. Unfortunately, his Clostridium difficile colitis problem, which is recurrent, is going to be an ongoing challenge for him because he has taken antibiotic on a multiple recurrent occasions, so there is absolutely no way that we can keep him out of trouble with this and the best we can do is keep him on the maintenance dose of vancomycin. For his COPD, we will go ahead and continue nebulizer treatment per order. There is no evidence of any exacerbation at this time. For his coronary artery disease, we will continue his aspirin. He only took Brilinta for 1 month as best as we can say on the basis of his prescription refill history and after that he has not taken any, and I did communicate with Dr. Martinez today and I explained all these details, so instead of putting him back on Brilinta, he has advised and agreed to have the patient take Plavix 75 mg daily and we will start that. When I saw the patient, he was upset and a bit tearful with his declining health over last 2 years and informed me that he really does not feel like he can keep on going like this. In the past, he had brought up discussion about hospice care and today also we had discussion regarding hospice care, and I have advised him that I would like for him to communicate with Social Service to get more information regarding hospice care as he is willing to talk to somebody. If he decides to go home with hospice, we will help him make arrangements for hospice care with a hospice diagnosis of chronic obstructive pulmonary disease and coronary artery disease. His overall prognosis is poor. Total time spent today was 85 minutes, including review of last hospital visit record from 04/19/2024, communication with emergency room physician, review of emergency room visit record, performing today's evaluation and management, communication with grain elevator man, review of last office visit record from 05/16/2024. INDRA/JUDY Voice ID: [id number] [place]
[2024-07-01 05:34] LABS: Absolute Eosinophils 0.1 K/uL (0-0.5); Absolute Monocytes 0.6 K/uL (0.1-1.3); Absolute Neutrophil 4.6 K/uL (1.8-8.0); Basophils % 0.3 % (0-1.3); Hematocrit 36.1 % (39.6-49.0); Hemoglobin 11.9 g/dL (13.6-17.9); Lymphocytes % 15.6 % (15.3-44.8); MCH 31.2 pg (27.0-35.0); MCHC 32.9 g/dL (32.0-36.0); MCV 94.9 fL (80-100); MPV 7.3 fL (7.6-11.3); Monocytes % 9.4 % (3.3-12.3); Neutrophils % 72.7 % (41.7-73.7); Platelets 222 thou/uL (152-406); Red Cell Distribution Width 16.1 % (12.1-15.2)
[2024-07-01 05:48] LABS: Magnesium 1.7 mg/dL (1.6-2.4)
[2024-07-01] MEDS: METOPROLOL XL 25 MG TAB PO SCH (06:12)
[2024-07-01] MEDS: FOLBIC 1 TAB PO SCH (08:49)
[2024-07-01] MEDS: MAGNESIUM SULFATE 1 gm IVPB 1 GM/100 ML BAG IV ONE (08:49)
[2024-07-01] MEDS: MONTELUKAST 10 MG TAB PO SCH (08:50)
[2024-07-01] MEDS: CLOPIDOGREL 75 MG TABLET PO SCH (08:50)
[2024-07-01] MEDS: FINASTERIDE 5 MG TAB PO SCH (08:50)
[2024-07-01] MEDS: DULOXETINE 30 MG CAP PO SCH (08:51)
[2024-07-01] MEDS: POTASSIUM 25 MEQ EFFERV TAB PO ONE (08:51)
[2024-07-01] MEDS: PARoxetine HCL 10 MG TAB PO SCH (08:51)
[2024-07-01] MEDS: POTASSIUM CL SA 10 MEQ TAB PO SCH (08:51)
[2024-07-01] MEDS: TAMSULOSIN 0.4 MG SR CAP PO SCH (08:51)
[2024-07-01] MEDS: ASPIRIN EC 81 MG TAB PO SCH (08:51)
[2024-07-01] MEDS ORDERED: PARoxetine HCL 10 MG TAB PO SCH (09:00)
[2024-07-01] MEDS: PIPER TAZO 3.375 GM in NA CHLORIDE 0.9% 100 ML IV SCH (13:33)
--- NOTE | 2024-07-02 02:11 | PN ---
Date of Progress Note: 07/01/2024 Subjective: The patient was seen this morning for followup. No new complaints or problems reported by him. He was lying in bed, not in any distress. Objective: Vital Signs: Reviewed. HEENT: Unremarkable. Lungs: Clear to auscultation. Heart: Sounds normal. Abdomen: Soft. Bowel sounds are normal. No guarding, rigidity, tenderness, or distention. Extremities: No leg edema. Laboratory Data: Urine culture results came back and culture and sensitivity results reviewed. Blood culture has started to grow yeast. Definite identification and sensitivity result pending. Impression: 1. Urinary tract infection. 2. Fungemia. 3. Severe chronic obstructive pulmonary disease. 4. Type 2 diabetes mellitus. 5. Hypertension. 6. Anxiety. 7. Depression. Plan: We will go ahead and discontinue meropenem, stop vancomycin, and start the patient on Zosyn according to urine culture result. For fungemia, we will need to go ahead and have Infectious Disease consultation, and I have requested Dr. Mullen to evaluate and manage this patient. We will continue other current medical management. I will see him tomorrow for followup. INDRA/MODL Voice ID: [id number] Report ID: [id number] [place]
[2024-07-02 07:15] LABS: Anion Gap 8.4 mEq/L (5.0-15.0); Magnesium 1.5 mg/dL (1.6-2.4); Potassium 3.4 mEq/L (3.5-5.1)
[2024-07-02] MEDS: Mupirocin NASAL 2 APPL/1 GM TUBE NAS SCH (08:10)
[2024-07-02] MEDS: POTASSIUM 25 MEQ EFFERV TAB PO ONE (08:12)
[2024-07-02] MEDS: Magnesium Sulfate 2gm IVPB 2 G/50 ML BAG IV ONE (08:12)
[2024-07-02] MEDS: MICAFUNGIN SODIUM 100 MG in NA CHLORIDE 0.9% 100 ML IV SCH ×2 (11:00→12:54)
--- NOTE | 2024-07-02 12:06 | EKG ---
Test Date: 2024-06-29 Test Time: 16:40:40 Farm Equipment Assembler: FRANCESCA MEASUREMENT RESULTS: Intervals: Rate: 82 MN: 154 QRSD: 90 QT: 402 QTc: 469 [place]: P: 91 MN: 154 QRS: -59 T: 62 INTERPRETIVE STATEMENTS: Normal sinus rhythm Left axis deviation Anterior infarct, age undetermined Abnormal ECG Compared to ECG 06/26/2024 18:31:12 Myocardial infarct finding now present ST (T wave) deviation no longer present Electronically Signed On 07-02-24 12:03:40 SALES OPERATIONS ASSOCIATE by Ronald Martinez
[2024-07-02 13:13] VITALS: BMI 24.7
--- NOTE | 2024-07-02 15:35 | RAD REPORT ---
Procedure: Chest Single View HISTORY: PICC line placement FINDINGS: PICC line has been placed into the SVC.
[2024-07-02 16:18] LABS: Magnesium 1.8 mg/dL (1.6-2.4); Potassium 3.8 mEq/L (3.5-5.1)
--- NOTE | 2024-07-02 20:52 | PN ---
Date of Progress Note: 07/02/2024 Subjective: The patient was seen this morning for followup. He was lying in bed. Not in any distress. Objective: Vital Signs: Reviewed. HEENT: Unremarkable. Lungs: Clear to auscultation. Heart: Sounds normal. Abdomen: Soft. Bowel sounds normal. No guarding, rigidity, tenderness, distention. Extremities: No leg edema. Laboratory Data: Sodium 135, potassium 3.4, chloride 101, bicarb 29, BUN 7, creatinine 0.61, glucose 139. Magnesium 1.5. Impression: 1. Urinary tract infection. 2. Fungemia. 3. Toxic encephalopathy, resolved. 4. Hypokalemia. 5. Hypomagnesemia. 6. Severe chronic obstructive pulmonary disease. 7. Plan: We will go ahead and replace potassium and magnesium per electrolyte replacement protocol. Continue current IV Zosyn for urinary tract infection and organism is pseudomonas. For fungemia, ID consultation was obtained from Dr. Mullen and I did discuss details with him after he evaluated the patient and he has started the patient on antifungal medication. Yeast that was noted was on the Gram stain and he is waiting for the culture results. If culture result comes back negative, then antifungal medication will be given only for 1 week. If it comes back positive, then 1 month of antifungal therapy will be recommended as per my discussion with Dr. Mullen. PICC line was ordered and Social Service to assist patient with discharge planning. My recommendation to patient is to go to nursing home facility where he can get his IV antibiotic and antifungal therapy and physical therapy. INDRA/MODL Voice ID: [id number] Report ID: [id number] [facility]
[2024-07-03 05:19] LABS: Absolute Eosinophils 0.4 K/uL (0-0.5); Absolute Lymphocytes (CBC) 1.6 K/uL (0.7-4.9); Absolute Monocytes 0.5 K/uL (0.1-1.3); Absolute Neutrophil 3.1 K/uL (1.8-8.0); Basophils % 0.3 % (0-1.3); Eosinophils % 7.9 % (0-4.4); Hematocrit 35.1 % (39.6-49.0); Lymphocytes % 28.8 % (15.3-44.8); MCHC 34.3 g/dL (32.0-36.0); MCV 93.4 fL (80-100); MPV 7.2 fL (7.6-11.3); Monocytes % 8.4 % (3.3-12.3); Neutrophils % 54.6 % (41.7-73.7); Nucleated Red Blood Cells % 0.1 % (0-0); Platelets 232 thou/uL (152-406); RBC Red Blood Cell Count 3.76 M/uL (4.33-5.43); Red Cell Distribution Width 15.4 % (12.1-15.2)
[2024-07-03 05:32] LABS: Anion Gap 6.9 mEq/L (5.0-15.0); Magnesium 1.8 mg/dL (1.6-2.4); Potassium 3.9 mEq/L (3.5-5.1)
[2024-07-03] MEDS: MAGNESIUM SULFATE 1 gm IVPB 1 GM/100 ML BAG IV ONE (08:18)
[2024-07-03] MEDS: POTASSIUM CL SA 10 MEQ TAB PO ONE (08:20)
[2024-07-03 09:59] VITALS: O2SAT 96
[2024-07-03 12:32] VITALS: TEMP 98.1
--- NOTE | 2024-07-03 13:32 | CON ---
History Of Present Illness: This is a 78-year-old male coming in with recurrent urinary tract infection. According to the patient, he was having shortness of breath. stopped smoking 15 years ago, has been using Nicorette. I was consulted for fungemia with Gram stain positive from June 29 blood cultures. There is no growth in the culture yet. The patient also has Pseudomonas putida in his urine cultures with urine analysis showing the patient has more than 50 wbc's and the urine cultures showing 10 to 100,000 CFU sensitive to Zosyn less than 16, intermediate to meropenem. The patient denies any headache, nausea, vomiting, chest pain, abdominal pain. Has an indwelling Bentley catheter. Past Medical History: COPD, recurrent urinary tract infection, recurrent C diff colitis, toxic encephalopathy, anxiety, depression, benign prostatic hypertrophy with lower urinary tract symptoms, coronary artery disease, hypertension, type 2 diabetes mellitus, hyperlipidemia, diverticulosis, and osteoarthritis. Social History: Ex tobacco user, currently using Nicorette gum. No alcohol use. Family History: Noncontributory. Medications: The patient is currently on vancomycin and Zosyn, was being treated with meropenem till yesterday, which was stopped and Zosyn was started. Allergies: POLIO VACCINE. Review of Systems: 10-point review was performed. Physical Examination: General: This is a 78-year-old male, lying in bed, not in any acute cardiopulmonary distress. Vital Signs: Temperature 97, pulse 79, respirations 16, blood pressure 114/68. HEENT: Unremarkable. Neck: Supple. Lungs: Clear to auscultation. Heart: S1, S2, regular. Abdomen: Soft, nontender. Bowel sounds present. Bentley catheter in place. Extremities: No edema. Lab Data: WBC 6.3, down from 12, hemoglobin 11.9, platelets are 222. Chemistry shows BUN 7, creatinine 0.6. Albumin level of 3.3. Micro data shows Pseudomonas putida in the urine with 10 to 100,000 colonies per mL. Blood cultures no growth. Gram stain is showing yeast in both bottles. Assessment And Plan: culture results, probable fungemia. We will recommend micafungin 100 mg daily for 1 month duration. Consider getting a PICC line placement. Continue Zosyn for Pseudomonas putida for 5 days, every 8 hours urosepsis, improving, COPD, diabetes mellitus type 2, anemia of chronic disease, leukocytosis improved. Continue current treatment. Thank you Dr. Alarcon for consult. NF/MODL Voice ID: [id number] Report ID: [id number] [facility]
--- NOTE | 2024-07-03 14:44 | PN ---
Subjective: Patient lying in bed. No new acute event. Chart reviewed. Objective: Vital Signs: Reviewed. Lungs: Basal crackles. Heart: S1, S2. Regular. Abdomen: Soft, nontender. Bowel sounds present. Extremities: No edema. Laboratory Data: WBC 5.7, hemoglobin 12, platelets 232. Chemistry shows BUN of 9, creatinine 0.7. Urine culture show Pseudomonas putida. Blood cultures from 06/29, yeast in Gram stain. Cultures are still negative. We will continue to monitor. Follow patient closely. No other findings. Assessment And Plan: Fungemia. Continue micafungin. Pseudomonas urinary tract infection. Continue Zosyn. We will follow the patient as needed. NF/MODL Voice ID: [id number] Report ID: [id number]
[2024-07-03 16:18] VITALS: BP 134/76
--- NOTE | 2024-07-04 06:46 | DS ---
Date of Discharge: 07/03/2024 INDRA/MODL Voice ID: [id number] Report ID: [id number] [facility]
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
== END 2024-07-03 17:42 | DRG 698 ==
LOC: ER 14:32 → ERHOLD 19:34 → 2ND 20:34
PROVIDERS: ADMIT Internal Medicine; ATTEND Internal Medicine
PROC: 0T9B70Z Drainage of Bladder with Drainage Device, Via Natural or Artificial Opening (ICD-10-PCS; 2024-06-30)
PROC: 02HV33Z Insertion of Infusion Device into Superior Vena Cava, Percutaneous Approach (ICD-10-PCS; principal; 2024-07-02)
DX: T83.518A Infection and inflammatory reaction due to other urinary catheter, initial encounter (principal); A41.52 Sepsis due to Pseudomonas; G92.9 Unspecified toxic encephalopathy; A04.71 Enterocolitis due to Clostridium difficile, recurrent; F03.94 Unspecified dementia, unspecified severity, with anxiety; F03.93 Unspecified dementia, unspecified severity, with mood disturbance; B49 Unspecified mycosis; B37.49 Other urogenital candidiasis; I10 Essential (primary) hypertension; F41.9 Anxiety disorder, unspecified; F41.0 Panic disorder [episodic paroxysmal anxiety]; E11.9 Type 2 diabetes mellitus without complications; E87.6 Hypokalemia; D63.8 Anemia in other chronic diseases classified elsewhere; E78.5 Hyperlipidemia, unspecified; E83.42 Hypomagnesemia; N40.1 Benign prostatic hyperplasia with lower urinary tract symptoms; M19.09 Primary osteoarthritis, other specified site; J44.9 Chronic obstructive pulmonary disease, unspecified; I25.10 Atherosclerotic heart disease of native coronary artery without angina pectoris; K57.90 Diverticulosis of intestine, part unspecified, without perforation or abscess without bleeding; I25.2 Old myocardial infarction; Z88.7 Allergy status to serum and vaccine; Z95.5 Presence of coronary angioplasty implant and graft; Z11.52 Encounter for screening for COVID-19; Z87.891 Personal history of nicotine dependence; Z91.148 Patient's other noncompliance with medication regimen for other reason; Z91.199 Patient's noncompliance with other medical treatment and regimen due to unspecified reason
CPT/HCPCS: 36415; 70450; 71045; 71260; 74177; 80048; 80053; 80307; 81001; 83605; 83735; 84132; 84484; 85025; 85610; 85730; 87040; 87077; 87086; 87088; 87106; 87186; 87205; 87804; 87807; 87811; 93005; 94640; 96365; 99285; J1650; J2185; J2248; J2543; J3475; J7613; Q9967

== ENCOUNTER 2024-10-12 18:35 | Emergency (ER) | payer OTHER ==
[2024-10-12 19:44] LABS: Absolute Lymphocytes (CBC) 0.6 K/uL (0.7-4.9); Absolute Neutrophil 8.1 K/uL (1.8-8.0); Basophils % 0.2 % (0-1.3); Eosinophils % 0.2 % (0-4.4); Hemoglobin 11.1 g/dL (13.6-17.9); Lymphocytes % 5.8 % (15.3-44.8); MCH 30.3 pg (27.0-35.0); MCHC 34.7 g/dL (32.0-36.0); MCV 87.2 fL (80-100); MPV 7.2 fL (7.6-11.3); Monocytes % 10.3 % (3.3-12.3); Neutrophils % 83.5 % (41.7-73.7); Nucleated Red Blood Cells % 0.1 % (0-0); Platelets 273 thou/uL (152-406); RBC Red Blood Cell Count 3.67 M/uL (4.33-5.43); Red Cell Distribution Width 16.5 % (12.1-15.2)
[2024-10-12 19:45] LABS: PTT, Activated Partial Thromb 28.8 SECONDS (27.2-37.4); Protime INR 1.24
[2024-10-12 19:55] LABS: Albumin 2.7 g/dL (3.4-5.0); Albumin/Globulin Ratio 0.8 (1.1-1.8); Anion Gap 13.1 mEq/L (5.0-15.0); Bilirubin Total 1.3 mg/dL (0.2-1.0); Globulin 3.4 g/dL (2.3-3.5); Potassium 3.1 mEq/L (3.5-5.1); Protein, Total 6.1 g/dL (6.4-8.2)
--- NOTE | 2024-10-12 20:30 | RAD REPORT ---
EXAM: CT CHEST, ABDOMEN AND PELVIS WITHOUT CONTRAST CLINICAL INDICATION: Male, 79 years old. [facility] MAIN fall Bed Name: 16 TECHNIQUE: CT chest, abdomen and pelvis was performed, without IV contrast, as per department protoco l. Axial, sagittal and coronal reconstructions were obtained. One or more of the following dose reduction techniques were used: Automated exposure control, adjustment of the mA and/or kV according to the patient size, and/or iterative reconstruction. Unless otherwise specified, incidental findings do not require dedicated imaging follow-up. COMPARISON: 08/18/2023 chest. 07/09/2024 CT chest, abdomen, and pelvis FINDINGS: The lack of intravenous contrast limits the sensitivity of this exam for evaluation of solid visceral organs, vascular structures, and retroperitoneum. Chest: LOWER NECK/CHEST WALL: Visualized thyroid gland and soft tissues are normal. LUNGS AND AIRWAYS: Airways are clear. No evidence of airspace or interstitial process. No nodules. Mi ld centrilobular the symphysis changes again seen. PLEURA: No pleural effusion. No pneumothorax. Hemidiaphragms are normally positioned. MEDIASTINUM AND LYMPH NODES: No mediastinal mass or fluid collection. Normal size mediastinal, hilar, and axillary lymph nodes. THORACIC AORTA: Normal caliber and configuration. PULMONARY ARTERIES: Normal caliber. HEART: Not enlarged. Stable mild pericardial effusion. Abdomen/Pelvis LIVER: Normal in size and contour. No focal lesion. GALLBLADDER/BILE DUCTS: Layering mildly hyperdense gallbladder sludge. No radiopaque calculi. No find ings to suggest biliary ductal dilation. PANCREAS: No mass, ductal dilation, or chantal-pancreatic fluid. SPLEEN: Normal size. No focal lesion. ADRENALS: Normal; no mass. KIDNEYS AND URETERS: Normal size and contour. No hydronephrosis. GASTROINTESTINAL TRACT: Stomach is non-dilated. Small bowel has normal course and caliber. No colonic wall thickening or pericolonic inflammatory changes. Fluid opacification of nondistended large bowel. The cecum is subhepatic in location. PERITONEUM: No free fluid. LYMPH NODES: No lymphadenopathy. ABDOMINAL AORTA AND OTHER VESSELS: Normal caliber aorta and IVC. URINARY BLADDER: Normal contour. REPRODUCTIVE ORGANS: No pathologic process. MUSCULOSKELETAL: No acute or suspicious osseous abnormality. Multiple stable left rib deformities rel ating healing malunited fractures. ADDITIONAL FINDINGS: None IMPRESSION: No acute traumatic abnormalities in the chest, abdomen, or pelvis. Nonspecific fluid opacification of nondistended large bowel throughout, may relate to diarrheal state .
--- NOTE | 2024-10-12 20:33 | RAD REPORT ---
EXAM: CT brain without contrast HISTORY: fall COMPARISON: 01/24/2022 TECHNIQUE: Multiple contiguous axial images were obtained and a CT of the brain without contrast. Sag ittal and coronal reformats were performed. FINDINGS: No evidence of hydrocephalus, intracranial hemorrhage, or extra-axial fluid collection. Moderate brain atrophy with moderate periventricular and deep white matter chronic microvascular isc hemic changes present. The calvarium is intact. The visualized paranasal sinuses and mastoid air cells are essentially clear . IMPRESSION: No evidence of acute intracranial abnormality. EXAM: CT of the cervical spine without contrast HISTORY: fall COMPARISON: None TECHNIQUE: Multiple contiguous axial images were obtained in a CT of the cervical spine without contr ast. Sagittal and coronal reformats were performed. FINDINGS: The vertebral bodies demonstrate normal height and alignment. No evidence of acute fracture or subluxation.. Mild multilevel degenerative changes contributing to mild to moderate neural foraminal narrowing most pronounced at C3-4 and the left. No prevertebral soft tissue swelling is se en. The posterior facets are well aligned. Normal alignment of the skull base with the cervical spine is seen. The lung apices are unremarkable. IMPRESSION: No evidence of acute osseous abnormality of the cervical spine.
--- NOTE | 2024-10-12 20:49 | RAD REPORT ---
EXAMINATION: ONE VIEW CHEST XR CLINICAL INDICATION: Male, 79 years old.,FEVER TECHNIQUE: Frontal chest projection is submitted. Examination is limited by patient positioning and t echnique. COMPARISON: 10/12/2024 FINDINGS: The lungs are well inflated and clear except for stable left basilar atelectasis. No pneumothorax or sizable effusion. The heart is normal in size. Mediastinal contours are unremarkable. IMPRESSION: No acute intrathoracic abnormalities.
[2024-10-12 20:56] LABS: Specific Gravity 1.009 (1.005-1.030); Sqamous Epithelial <5 /HPF (None Seen); Urine Bacteria <20 /HPF (<20); Urine Bilirubin NEGATIVE (Negative); Urine Blood Trace (Negative); Urine Clarity Extremely Turbid (Clear); Urine Color Light-Yellow (Yellow); Urine Crystals Unidentified Few /HPF (None Seen); Urine Culture Reflex Order REFLEXED; Urine Glucose NEGATIVE (Negative); Urine Ketones TRACE (Negative); Urine Microscopic Reflex YN ORDER UMIC; Urine Mucus Slight /HPF (None Seen); Urine Nitrite NEGATIVE (Negative); Urine Protein NEGATIVE (Negative); Urine RBC <5 /HPF (None Seen); Urine Urobilinogen Normal (Normal); Urine WBC >50 /HPF (<5); Urine WBC Clump Occasional /HPF (None Seen); Urine Yeast (Budding) Occasional /HPF (None Seen); Urine pH 6.5 (5.0-7.0)
[2024-10-12 21:21] LABS: Influenza A Ag Negative; Influenza B Ag Negative; SARS-CoV-2 Antigen Rapid Res Negative (Negative)
[2024-10-12] MEDS ORDERED: CEFTRIAXONE 1000 MG/VIAL ONE (21:38)
[2024-10-12] MEDS ORDERED: NA CHLORIDE 0.9% 500 ML ONE (21:38)
[2024-10-12] MEDS ORDERED: NA CHLORIDE 0.9% 50 ML ONE (21:38)
[2024-10-12] MEDS ORDERED: POTASSIUM 25 MEQ EFFERV TAB ONE (22:31)
--- NOTE | 2024-10-12 23:12 | EDPHYS ---
Physician Documentation [facility] Name: Shawn Gant Age: 79 yrs Sex: Male : 1945 Arrival Date: 10/12/2024 Time: 18:35 Bed 16 Private MD: ED Physician Michaelle Rehman HPI: 10/12 18:55 This 79 yrs old Male presents to ER via Unassigned with complaints of Fall Injury. cp 18:55 Details of fall: The patient fell from an upright position, while standing. cp 18:55 Onset: The symptoms/episode began/occurred today. Associated injuries: The patient cp sustained injury to the head, contusion, neck injury, tenderness. Patient reports he was moving from bed and into chair when he lost his balance and hit back of head and neck on furniture. No LOC. Patient presents to ED by EMS with c-collar in place. Historical: - Allergies: 19:00 Polio Virus Vaccines; db - PMHx: 19:00 COPD; borderline DM; Dementia; History of urinary tract infection; Hypertension; db - PSHx: 19:00 multiple ortho; db - Immunization history:: Adult Immunizations unknown. - Infectious Disease History:: Denies. - Immunization history: Last tetanus immunization: - up to date. - Social history:: Smoking status: Patient denies any tobacco usage or history of. ROS: 19:00 Constitutional: Positive for fever, Negative for poor PO intake, cp 19:00 Cardiovascular: Negative for chest pain, edema, cp 19:00 Respiratory: Negative for cough, shortness of breath, wheezing, 19:00 Abdomen/GI: Negative for abdominal pain, vomiting, diarrhea, constipation, 19:00 Eyes: Negative for injury, pain, redness, and discharge, cp 19:00 ENT: Negative for drainage from ear(s), ear pain, sore throat, difficulty swallowing, difficulty handling secretions, 19:00 Neck: Negative for stiffness, 19:00 Neuro: Negative for altered mental status, loss of consciousness, syncope, near cp syncope, 19:00 All other systems are negative, cp Exam: 19:05 Constitutional: The patient appears in no acute distress, alert, awake, cp non-diaphoretic, non-toxic, well developed, well nourished, 19:05 Head/face: Noted is tenderness, that is mild, of the left occipital area, left base of cp the skull, right occipital area and right base of the skull, 19:05 Eyes: Periorbital structures: appear normal, Pupils: equal, round, and reactive to light and accomodation, Extraocular movements: intact throughout, Conjunctiva: normal, no exudate, no injection, Sclera: no appreciated abnormality, Lids and lashes: appear normal, bilaterally, 19:05 ENT: External ear(s): are unremarkable, Nose: is normal, Mouth: Lips: moist, Oral mucosa: moist, Posterior pharynx: Airway: no evidence of obstruction, patent, 19:05 Neck: 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, vertebral tenderness, that is mild, appreciated at C1, C2 and C3, crepitus, is not appreciated, 19:05 Chest/axilla: Inspection: normal, Palpation: crepitus, is not appreciated, tenderness, is not appreciated, 19:05 Cardiovascular: Rate: normal, Rhythm: regular, Edema: is not appreciated, JVD: is not appreciated, 19:05 Respiratory: the patient does not display signs of respiratory distress, Respirations: normal, no use of accessory muscles, no retractions, labored breathing, is not present, Breath sounds: are clear throughout, no decreased breath sounds, no stridor, no wheezing, 19:05 Abdomen/GI: Inspection: abdomen appears normal, Palpation: abdomen is soft and non-tender, in all quadrants, 19:05 Back: vertebral tenderness, is not appreciated, 19:05 Musculoskeletal/extremity: Exam is negative for injury, 19:05 Neuro: Orientation: to person, place \T\ time. Mentation: is normal, Motor: moves all fours, strength is normal, Sensation: no obvious gross deficits, 20:27 ECG was reviewed by the Attending Physician. cp Vital Signs: 18:39 BP 139 / 86; Pulse 93; Resp 16; Temp 98.3; Pulse Ox 96% ; Weight 78.93 kg; Height 5 ft. db 10 in. ; 19:10 BP 129 / 78; Pulse 92; Resp 18; Pulse Ox 95% on R/A; rg5 20:00 BP 117 / 68; Pulse 73; Resp 18; Pulse Ox 98% on R/A; Pain 0/10; rg5 21:00 BP 124 / 69; Pulse 71; Resp 18; Pulse Ox 99% on R/A; Pain 0/10; rg5 22:41 BP 126 / 68; Pulse 70; Resp 18; Pulse Ox 99% on R/A; Pain 0/10; rg5 18:39 Body Mass Index 24.97 (78.93 kg, 177.8 cm) db 20:00 Pain Scale: Adult rg5 21:00 Pain Scale: Adult rg5 22:41 Pain Scale: Adult rg5 Akhil Coma Score: 19:00 Eye Response: spontaneous(4). Motor Response: obeys commands(6). Verbal Response: rg5 oriented(5). Total: 15. Trauma Score (Adult): 22:45 Eye Response: spontaneous(1); Verbal Response: oriented(1); Motor Response: obeys rg5 commands(2); Systolic BP: > 89 mm Hg(4); Respiratory Rate: 10 to 29 per min(4); [place] Score: 15; Trauma Score: 12 MDM: 23:11 Medical Screening Exam initiated 10/12 18:55 Order name: Blood Culture Adult (2) 10/12 18:55 Order name: CBC with Diff; Complete Time: 21:09 10/12 21:09 Interpretation: Normal except: RBC 3.67; HGB 11.1; HCT 32.0; RDW 16.5; MPV 7.2; SARTHAK% cp 83.5; LYM% 5.8; NEUT A 8.1; LYMA 0.6. 10/12 18:55 Order name: CMP; Complete Time: 21:09 10/12 21:09 Interpretation: Normal except: NA 126; K 3.1; CL 96; CO2 20; GLUC 124; AST 11; BILIT cp 1.3; CA 7.9; TP 6.1; ALB 2.7; A/G 0.8. 10/12 18:55 Order name: Lactate w/ 2H reflex if indic.; Complete Time: 21:09 10/12 21:10 Interpretation: LAC 1.0; Reviewed. 10/12 18:55 Order name: Protime (+inr); Complete Time: 21:09 10/12 18:55 Order name: Ptt, Activated; Complete Time: 21:09 10/12 18:55 Order name: Urinalysis w/ reflexes; Complete Time: 21:09 10/12 21:10 Interpretation: Normal except: [facility] Extremely Turbid; UKET TRACE; UBLD Trace; UESTR cp 500; UWBC >50; UWBC Clump Occasional; BYST Occasional. 10/12 18:55 Order name: COVID-19 Ag + Flu A+B Ag; Complete Time: 21:47 cp 10/12 21:00 Order name: Urine Culture EDDE 10/12 18:55 Order name: Chest Single View XRAY; Complete Time: 21:09 cp 10/12 21:12 Interpretation: Report reviewed. 10/12 19:05 Order name: Chest Abd Pelvis Wo Con; Complete Time: 21:09 EDDE 10/12 19:07 Order name: Head C Spine Mpr Wo Con; Complete Time: 21: EDDE 10/12 21:13 Interpretation: Report reviewed. 10/12 18:55 Order name: EKG; Complete Time: 18:55 cp 10/12 18:55 Order name: Accucheck; Complete Time: 20:34 cp 10/12 18:55 Order name: Cardiac monitoring; Complete Time: 19:29 cp 10/12 18:55 Order name: EKG - Nurse/Tech; Complete Time: 20:34 cp 10/12 18:55 Order name: IV Saline Lock - Large Bore; Complete Time: 19:29 cp 10/12 18:55 Order name: Labs collected and sent; Complete Time: 19:29 cp 10/12 18:55 Order name: O2 Per Protocol; Complete Time: 19:29 cp 10/12 18:55 Order name: O2 Sat Monitoring; Complete Time: 19:29 cp 10/12 18:55 Order name: Vital Signs; Complete Time: 19:29 cp EC:27 Rate is 73 beats/min. Rhythm is regular. MS interval is normal. QRS interval is normal. cp QT interval is normal. T waves are Inverted in leads III, aVR. Interpreted by me. Reviewed by me. Administered Medications: 22:03 Drug: Rocephin IV 1 grams IV at calculated rate once; Given slow IV push per pharmacy rg5 instructions Route: IV; Rate: calculated rate; Site: right antecubital; 22:48 Follow up: IV Status: Completed infusion; IV Intake: 50ml rg5 22:03 Drug: NS 0.9% IV 500 ml 500 ml IV at 1 bolus once; to be given as a bolus over 60 rg5 minutes Volume: 500 ml; Route: IV; Rate: 1 bolus; Site: right antecubital; 22:48 Follow up: IV Status: Completed infusion; IV Intake: 500ml rg5 22:38 Drug: Potassium PO Effervescent Tablet 50 mEq PO once; dissolve in 4 ounces of water or rg5 juice Route: PO; 22:48 Follow up: Response: No adverse reaction rg5 22:38 Drug: Potassium PO Effervescent Tablet 25 mEq PO once; dissolve in 4 ounces of water or rg5 juice Route: PO; 22:48 Follow up: Response: No adverse reaction rg5 Disposition Summary: 10/12/24 23:11 Discharge Ordered Notes: Location: Home cp Problem: new cp Symptoms: have improved cp Condition: Stable cp Diagnosis - Contusion of unspecified part of head, initial encounter cp - Fall on same level from slipping, tripping and stumbling with subsequent striking cp against object - Hypo-osmolality and hyponatremia cp - Hypokalemia cp - UTI/ Urinary tract infection, site not specified cp Followup: cp - With: Private Physician - When: 2 - 3 days - Reason: Recheck today's complaints Discharge Instructions: - Discharge Summary Sheet cp - Facial or Scalp Contusion cp - Head Injury, Adult cp - Hyponatremia cp - Urinary Tract Infection, Adult cp - Hypokalemia cp Forms: - Medication Reconciliation Form cp - Antibiotic Education cp - Prescription Opioid Use cp - Patient Portal Instructions cp - Leadership Thank You Letter cp Prescriptions: - cefpodoxime 200 mg Oral tablet - take 1 tablet ORAL route every 12 hours for 10 days with food; 20 tablet; cp Refills: 0, Product Selection Permitted Signatures: Dispatcher [employer] EDDE Enoc Pacheco PA PA cp Courtney Perez RN RN Adalberto Zhang RN RN rg5 Corrections: (The following items were deleted from the chart) 19:01 19:00 Immunization history: Adult Immunizations unknown, gonzalo sánchez 19:05 18:56 Head C Spine Cap Wo Con+CT.RAD.BRZ ordered. [facility] EDDE 10/13 20:24 10/12 18:55 Patient reports he was moving from bed and into chair when he lost his cp balance and hit back of head and neck on furniture. No LOC. cp
--- NOTE | 2024-10-12 23:12 | ER ---
Nurse's Notes [facility] Name: Shawn Gant Age: 79 yrs Sex: Male : 1945 Arrival Date: 10/12/2024 Time: 18:35 Bed 16 Private MD: Diagnosis: Contusion of unspecified part of head, initial encounter;Fall on same level from slipping, tripping and stumbling with subsequent striking against object;Hypo-osmolality and hyponatremia;Hypokalemia;UTI/ Urinary tract infection, site not specified Presentation: 10/12 18:39 Chief complaint: EMS states: FALL WHILE TRANSFERRING FROM BED TO CHAIR. FELL HIT BACK db OF HEAD AND NECK ON BASE FOOT BOARD OF BED. COMPLAINS OF HEAD PAIN. DENIES LOC. PT ARMSTRONG FEVER 102.9. GIVEN 975 MG PO TYLENOL. HR 120'S. Coronavirus screen: Client denies travel out of the [place] in the last 14 days. At this time, the client does not indicate any symptoms associated with coronavirus-19. Ebola Screen: Patient negative for fever greater than or equal to 101.5 degrees Fahrenheit, and additional compatible Ebola Virus Disease symptoms Patient denies exposure to infectious person. Patient denies travel to an Ebola-affected area in the 21 days before illness onset. No symptoms or risks identified at this time. Initial Sepsis Screen: Does the patient meet any 2 criteria? Temp <36.0*C (96.8*F)) or > 38.3*C (100.9*F). HR > 90 bpm. Does the patient have a suspected source of infection? No. Patient's initial sepsis screen is negative. Risk Assessment: Do you want to hurt yourself or someone else? Patient reports no desire to harm self or others. Onset of symptoms was October 12, 2024. Care prior to arrival: Cervical collar in place. Splint applied. Medication(s) given: Normal saline infusion, 500 mL, Tylenol, 975 MG PO IV initiated. 18 GA, in the right forearm, Glucose check: 146. 18:39 Method Of Arrival: EMS: [facility] db 18:39 Acuity: MARIO 3 db 19:00 Mechanism of Injury: Fall out of chair. Trauma event details: Injury occurred in the [address] Triage Assessment: 18:39 General: Appears in no apparent distress. comfortable, Behavior is calm, cooperative. db Pain: Complains of pain in scalp. Neuro: Level of Consciousness is awake, alert, obeys commands, Oriented to person, place, time, situation. Respiratory: Airway is patent Respiratory effort is even, unlabored, Respiratory pattern is regular, symmetrical. : Bentley in place. Historical: - Allergies: 19:00 Polio Virus Vaccines; db - PMHx: 19:00 COPD; borderline DM; Dementia; History of urinary tract infection; Hypertension; db - PSHx: 19:00 multiple ortho; db - Immunization history:: Adult Immunizations unknown. - Infectious Disease History:: Denies. - Immunization history: Last tetanus immunization: - up to date. - Social history:: Smoking status: Patient denies any tobacco usage or history of. Screenin:05 [facility] ED Fall Risk Assessment (Adult) History of falling in the last 3 months, rg5 including since admission Yes- single mechanical fall (1 pt) Confusion or Disorientation No (0 pts) Intoxicated or Sedated No (0 pts) Impaired Gait Yes (1 pt) Mobility Assist Device Used Yes (1 pt) Altered Elimination Yes (1 pt) Score/Fall Risk Level 3 or more points = High Risk Oriented to surroundings, Maintained a safe environment, Educated pt \T\ family on fall prevention, incl call for assistance when getting out of bed, Hourly rounding (assess needs \T\ fall precautionary measures) done, Used ambulatory aids as needed (educated on \T\ assisted with). Abuse screen: Denies threats or abuse. Nutritional screening: No deficits noted. Tuberculosis screening: No symptoms or risk factors identified. Primary Survey: 19:00 NO uncontrolled hemorrhage observed. A: The client is awake and alert. The airway is rg5 patent. 19:00 Breathing/Chest: Spontaneous respiratory effort, equal unlabored respirations, breath rg5 sounds clear bilaterally, regular pattern, symmetrical chest rise and fall. Circulation: No external hemorrhage present. Regular and strong central pulse, skin warm/dry/normal color. Disability Client is alert. Exposure/Environment: All clothing and personal items were removed. Forensic evidence collection is not deemed to be indicated at this time. Items placed in patient belonging bag. There is no evidence of uncontrolled external bleeding. 20:00 Reassessment Alertness and Airway: Awake and alert. The airway is patent. Breathing: rg5 Spontaneous respiratory effort, equal unlabored respirations, breath sounds clear bilaterally, regular pattern with symmetrical chest rise and fall. Circulation: No external hemorrhage noted. Regular and strong central pulse, skin warm/dry/normal color. Disability: Pupils Pupils are equal, round, reactive to light and accomodation. Assessment: 19:05 General: Appears in no apparent distress. comfortable. rg5 19:05 Pain: Denies pain. Neuro: Level of Consciousness is awake, alert, obeys commands, rg5 Oriented to person, place, time, situation. Cardiovascular: Denies chest pain, Patient's skin is warm and dry. Respiratory: Airway is patent Trachea midline Respiratory effort is even, unlabored, Respiratory pattern is regular, symmetrical. GI: Abdomen is round non-distended. : Bentley in place to gravity drainage. EENT: No signs and/or symptoms were reported regarding the EENT system. Derm: Skin is intact, Skin is dry, Skin is normal. Musculoskeletal: Circulation, motion, and sensation intact. Range of motion: intact in all extremities. 20:00 Reassessment: No changes from previously documented assessment. Patient and/or family rg5 updated on plan of care and expected duration. Pain level reassessed. Patient is alert, oriented x 3, equal unlabored respirations, skin warm/dry/pink. 21:00 Reassessment: No changes from previously documented assessment. Patient and/or family rg5 updated on plan of care and expected duration. Pain level reassessed. Patient is alert, oriented x 3, equal unlabored respirations, skin warm/dry/pink. 22:00 Reassessment: No changes from previously documented assessment. Patient and/or family rg5 updated on plan of care and expected duration. Pain level reassessed. Patient is alert, oriented x 3, equal unlabored respirations, skin warm/dry/pink. 23:01 Reassessment: No changes from previously documented assessment. Patient and/or family rg5 updated on plan of care and expected duration. Pain level reassessed. Patient is alert, oriented x 3, equal unlabored respirations, skin warm/dry/pink. Vital Signs: 18:39 BP 139 / 86; Pulse 93; Resp 16; Temp 98.3; Pulse Ox 96% ; Weight 78.93 kg; Height 5 ft. db 10 in. ; 19:10 BP 129 / 78; Pulse 92; Resp 18; Pulse Ox 95% on R/A; rg5 20:00 BP 117 / 68; Pulse 73; Resp 18; Pulse Ox 98% on R/A; Pain 0/10; rg5 21:00 BP 124 / 69; Pulse 71; Resp 18; Pulse Ox 99% on R/A; Pain 0/10; rg5 22:41 BP 126 / 68; Pulse 70; Resp 18; Pulse Ox 99% on R/A; Pain 0/10; rg5 18:39 Body Mass Index 24.97 (78.93 kg, 177.8 cm) db 20:00 Pain Scale: Adult rg5 21:00 Pain Scale: Adult rg5 22:41 Pain Scale: Adult rg5 Akhil Coma Score: 19:00 Eye Response: spontaneous(4). Motor Response: obeys commands(6). Verbal Response: rg5 oriented(5). Total: 15. Trauma Score (Adult): 22:45 Eye Response: spontaneous(1); Verbal Response: oriented(1); Motor Response: obeys rg5 commands(2); Systolic BP: > 89 mm Hg(4); Respiratory Rate: 10 to 29 per min(4); [place] Score: 15; Trauma Score: 12 ED Course: 18:45 Maintain EMS IV. Dressing intact. Good blood return noted. Site clean \T\ dry. Gauge \T\ db site: 18 G RFA. 18:52 Patient arrived in ED. db 18:54 Enoc Pacheco PA is PHCP. cp 18:54 Michaelle Rehman MD is Attending Physician. cp 18:57 Triage completed. db 18:57 Arm band placed on Patient placed. db 19:05 Patient has correct armband on for positive identification. Bed in low position. Call rg5 light in reach. Side rails up X 1. Adult w/ patient. Door closed. Noise minimized. Warm blanket given. 19:05 No provider procedures requiring assistance completed. Patient maintains SpO2 rg5 saturation greater than 95% on room air. 19:07 Adalberto Hall, RN is Primary Nurse. rg5 19:46 Chest Single View XRAY In Process Unspecified. EDMS 19:50 Chest Abd Pelvis Wo Con In Process Unspecified. EDMS 19:50 Head C Spine Mpr Wo Con In Process Unspecified. EDMS 23:00 IV discontinued, bleeding controlled, No redness/swelling at site. Pressure dressing rg5 applied. 23:02 Provided Education on: post er care. rg5 Administered Medications: 22:03 Drug: Rocephin IV 1 grams IV at calculated rate once; Given slow IV push per pharmacy rg5 instructions Route: IV; Rate: calculated rate; Site: right antecubital; 22:48 Follow up: IV Status: Completed infusion; IV Intake: 50ml rg5 22:03 Drug: NS 0.9% IV 500 ml 500 ml IV at 1 bolus once; to be given as a bolus over 60 rg5 minutes Volume: 500 ml; Route: IV; Rate: 1 bolus; Site: right antecubital; 22:48 Follow up: IV Status: Completed infusion; IV Intake: 500ml rg5 22:38 Drug: Potassium PO Effervescent Tablet 50 mEq PO once; dissolve in 4 ounces of water or rg5 juice Route: PO; 22:48 Follow up: Response: No adverse reaction rg5 22:38 Drug: Potassium PO Effervescent Tablet 25 mEq PO once; dissolve in 4 ounces of water or rg5 juice Route: PO; 22:48 Follow up: Response: No adverse reaction rg5 Medication: 19:05 VIS not applicable for this client. rg5 Intake: 22:48 IV: 500ml; Total: 500ml. rg5 22:48 IV: 50ml; Total: 550ml. rg5 Output: 22:47 Urine: 1000ml ([place]); Total: 1000ml. rg5 Outcome: 23:02 Discharged to Rehab Facility rg5 23:02 Condition: stable 23:02 Discharge instructions given to patient, family, Instructed on discharge instructions, follow up and referral plans. Demonstrated understanding of instructions, follow-up care, 23:11 Discharge ordered by MD. valdez 23:35 Patient left the ED. rg5 Signatures: Dispatcher [employer] EDMS Enoc Pacheco PA PA cp Benton, Danielle, RN RN db Gallardo, Rommel, RN RN rg5 Corrections: (The following items were deleted from the chart) 19:00 18:39 Chief complaint: EMS states: FALL WHILE TRANSFERRING FROM BED TO CHAIR. FELL HIT db BACK OF HEAD AND NECK ON BASE FOOT BOARD OF BED. COMPLAINS OF HEAD PAIN. DENIES LOC. PT ARMSTRONG FEVER 102.9. GIVEN 975 MG PO TYLENOL. db 19:01 19:00 Immunization history: Adult Immunizations unknown, db db
[2024-10-12 23:39] VITALS: TEMP 98.3
[2024-10-12 23:44] VITALS: O2SAT 99
[2024-10-12 23:45] VITALS: BP 126/68
--- NOTE | 2024-10-14 11:20 | EKG ---
Test Date: 2024-10-12 Test Time: 20:21:12 Rag Collector: CLARISSA MEASUREMENT RESULTS: Intervals: Rate: 73 MA: 186 QRSD: 98 QT: 400 QTc: 440 [place]: P: 55 MA: 186 QRS: -23 T: 26 INTERPRETIVE STATEMENTS: Sinus rhythm with premature atrial complexes Septal infarct, age undetermined Abnormal ECG Compared to ECG 06/29/2024 16:40:40 Atrial premature complex(es) now present Left-axis deviation no longer present Myocardial infarct finding still present Electronically Signed On 10-14-24 11:18:08 CDT by Ronald Martinez
== END 2024-10-12 23:35 | disposition home or self-care (01) ==
LOC: ER 18:35
DX: S00.83XA Contusion of other part of head, initial encounter (principal); E87.1 Hypo-osmolality and hyponatremia; E87.6 Hypokalemia; N39.0 Urinary tract infection, site not specified; W01.198A Fall on same level from slipping, tripping and stumbling with subsequent striking against other object, initial encounter; I10 Essential (primary) hypertension; J44.9 Chronic obstructive pulmonary disease, unspecified; Z11.52 Encounter for screening for COVID-19
CPT/HCPCS: 87040 ×2; 87088; 85025; 81001; 87086; 36415; 85610; 83605; 85730; 80053; 70450; 71250; 72125; 74176; 71045; 87428; J7040; J0696; 93005; 96365; 99284

== ENCOUNTER 2024-10-22 11:04 | Inpatient (IN) | payer OTHER ==
[2024-10-22 11:46] LABS: Absolute Basophils 0.1 K/uL (0-0.5); Absolute Eosinophils 0.1 K/uL (0-0.5); Absolute Lymphocytes (CBC) 1.1 K/uL (0.7-4.9); Absolute Monocytes 0.8 K/uL (0.1-1.3); Absolute Neutrophil 8.3 K/uL (1.8-8.0); Basophils % 0.7 % (0-1.3); Eosinophils % 1.2 % (0-4.4); Hematocrit 35.1 % (39.6-49.0); Lymphocytes % 10.2 % (15.3-44.8); MCH 29.7 pg (27.0-35.0); MCHC 34.2 g/dL (32.0-36.0); MPV 6.8 fL (7.6-11.3); Monocytes % 8.1 % (3.3-12.3); Neutrophils % 79.8 % (41.7-73.7); Nucleated Red Blood Cells % 0.1 % (0-0); Platelets 435 thou/uL (152-406); RBC Red Blood Cell Count 4.03 M/uL (4.33-5.43); Red Cell Distribution Width 16.5 % (12.1-15.2)
[2024-10-22] MEDS ORDERED: NA CHLORIDE 0.9% 500 ML ONE (12:04)
[2024-10-22 12:08] LABS: Albumin 2.6 g/dL (3.4-5.0); Albumin/Globulin Ratio 0.7 (1.1-1.8); Anion Gap 9.9 mEq/L (5.0-15.0); Bilirubin Total 0.7 mg/dL (0.2-1.0); Globulin 3.9 g/dL (2.3-3.5); Potassium 2.9 mEq/L (3.5-5.1); Protein, Total 6.5 g/dL (6.4-8.2)
--- NOTE | 2024-10-22 12:42 | RAD REPORT ---
EXAM: CT brain without contrast HISTORY: Headache with head injury COMPARISON: September 2024 TECHNIQUE: Multiple contiguous axial images were obtained and a CT of the brain without contrast.. Sagittal and coronal reconstruction performed. Automated exposure control, adjustment of the mA and/or kV according to patient size, and/or iterative reconstruction. Unless otherwise specified, incidental f indings do not require dedicated imaging follow-up FINDINGS: An intracranial bleed is not seen Ventricles are normal caliber No extra-axial fluid collection noted No significant hypodensity within the brain No fluid within the visualized sinuses or mastoids noted. IMPRESSION: No acute intracranial abnormality noted. If the patient continues to have symptoms to suggest an acute intracranial abnormality then MRI of th e brain would be recommended.
--- NOTE | 2024-10-22 12:53 | RAD REPORT ---
EXAMINATION: CT ABDOMEN AND PELVIS WITH CONTRAST CLINICAL INDICATION: Abdominal pain TECHNIQUE: CT abdomen and pelvis was performed, after the administration of 100 cc Isovue-300.. Sagit mague and coronal reconstructions were obtained. One or more of the following dose reduction techniques were used: Automated exposure control, adjustment of the mA and kV according to patient si ze, and iterative reconstruction. Unless otherwise specified, incidental findings do not require dedicated imaging follow-up. [id number]. Oral contrast was not given which limits evaluation of bowel and appendix. COMPARISON: .2023 FINDINGS: Previously described splenic infarct demonstrates a normal appearance on the current exam. The spleen has a relatively homogeneous density. The liver, pancreas, adrenals and kidneys unremarkable A Bentley catheter is present within the bladder. The wall of the rectosigmoid colon is mildly to moderately thickened consistent with colitis. Pneumat osis intestinalis is not present. No free air. Right hip arthroplasty. No evidence of diverticulitis.. Normal appendix : IMPRESSION: Mild to moderate recto sigmoid colitis
[2024-10-22] MEDS ORDERED: NA CHLORIDE 0.9% 100 ML ONE (13:57)
[2024-10-22] MEDS ORDERED: PIPERACIL/TAZO 3.375 GM VIAL IV ONE (13:57)
--- NOTE | 2024-10-22 14:22 | ER ---
Nurse's Notes [facility] Name: Shawn Gant Age: 79 yrs Sex: Male : 1945 Arrival Date: 10/22/2024 Time: 11:04 Bed 14 Private MD: Diagnosis: Left sided colitis;Dehydration Presentation: 10/22 11:14 Chief complaint: Patient states: he has not been able to control his bowels for approx ap3 4 days. patient reports he has an appointment with his PCP tomorrow, but his "bottom feels like sand paper". Coronavirus screen: At this time, the client does not indicate any symptoms associated with coronavirus-19. Ebola Screen: No symptoms or risks identified at this time. Initial Sepsis Screen: Does the patient meet any 2 criteria? HR > 90 bpm. Does the patient have a suspected source of infection? No. Patient's initial sepsis screen is negative. Risk Assessment: Do you want to hurt yourself or someone else? Patient reports no desire to harm self or others. Onset of symptoms was October 18, 2024. Transition of care: patient was received from another setting of care (long-term care facility), [facility]. 11:14 Method Of Arrival: Wheelchair ap3 11:14 Acuity: MARIO 3 ap3 Triage Assessment: 11:18 General: Appears in no apparent distress. Behavior is calm, cooperative, appropriate ap3 for age. Pain: Complains of pain in bilateral knee Pain began years ago. Neuro: Level of Consciousness is awake, alert, obeys commands, Oriented to person, place, time, situation, Appropriate for age. Cardiovascular: Patient's skin is warm and dry. Respiratory: Airway is patent Respiratory effort is even, unlabored, Respiratory pattern is regular, symmetrical. GI: Reports diarrhea. : Bentley in place. Historical: - Allergies: 11:17 Polio Virus Vaccines; ap3 - PMHx: 11:17 borderline DM; COPD; Dementia; History of urinary tract infection; Hypertension; ap3 - PSHx: 11:17 multiple ortho; ap3 - Immunization history:: Client reports receiving the 2nd dose of the Covid vaccine, Flu vaccine is up to date. - Infectious Disease History:: Denies. - Social history:: Smoking status: Patient/guardian denies using tobacco, the patient reports quitting approximately 15 years ago. - Family history:: not pertinent. - Hospitalizations: : No recent hospitalization is reported. Screenin:19 Abuse screen: Denies threats or abuse. Nutritional screening: No deficits noted. ap3 Tuberculosis screening: No symptoms or risk factors identified. 11:30 [facility] ED Fall Risk Assessment (Adult) History of falling in the last 3 months, bp including since admission No falls in past 3 months (0 pts) Confusion or Disorientation No (0 pts) Intoxicated or Sedated No (0 pts) Impaired Gait Yes (1 pt) Mobility Assist Device Used Yes (1 pt) Altered Elimination No (0 pt) Score/Fall Risk Level 0 - 2 = Low Risk Oriented to surroundings. Assessment: 11:30 General: Appears in no apparent distress. uncomfortable, ill, Behavior is calm, bp cooperative, appropriate for age. Vital Signs: 11:14 BP 123 / 75; Pulse 92; Resp 17; Temp 97.7(O); Pulse Ox 100% on R/A; Weight 74.84 kg; ap3 Height 5 ft. 10 in. ; 11:14 Body Mass Index 23.67 (74.84 kg, 177.8 cm) ap3 ED Course: 11:06 Patient arrived in ED. im 11:17 Triage completed. ap3 11:17 Wes Hubbard MD is Attending Physician. rn 11:19 Arm band placed on left wrist. ap3 11:28 Wyatt Rose, FIONA is Primary Nurse. bp 11:30 Patient has correct armband on for positive identification. bp 11:36 Initial lab(s) drawn, by me, sent to lab. Inserted saline lock: 22 gauge in right bp forearm, using aseptic technique. Blood collected. Flushed with 10 mL NS. 12:25 CT Abd/Pelvis - IV Contrast Only Sent. bp 12:30 CT Abd/Pelvis - IV Contrast Only In Process Unspecified. EDMS 12:31 CT Head Brain wo Cont In Process Unspecified. EDMS 14:21 Ken Alarcon MD is Hospitalizing Provider. rn Administered Medications: 12:08 Drug: NS 0.9% IV 500 ml 500 ml IV at 1 bolus once; to be given as a bolus over 30 bp minutes Volume: 500 ml; Route: IV; Rate: 1 bolus; Site: right forearm; 13:30 Drug: Piperacillin-Tazobactam IVPB 3.375 grams IVPB once over 60 mins; (mix in NS 100 bp mL) Route: IVPB; Infused Over: 60 mins; Site: right forearm; Medication: 11:30 VIS not applicable for this client. bp Outcome: 14:21 Decision to Hospitalize by Provider. rn 16:14 Patient left the ED. bp Signatures: Dispatcher [employer] EDMS Wes Hubbard MD MD rn Peltier, Brian RN RN Joan Callaway RN RN ap3 Suzie Suazo
--- NOTE | 2024-10-22 14:22 | EDPHYS ---
Physician Documentation [facility] Name: Shawn Gant Age: 79 yrs Sex: Male : 1945 Arrival Date: 10/22/2024 Time: 11:04 Bed 14 Private MD: ED Physician Wes Hubbard HPI: 10/22 12:06 This 79 yrs old Male presents to ER via Wheelchair with complaints of Diarrhea. rn 12:06 The patient presents to the emergency department with diarrhea. Onset: The rn symptoms/episode began/occurred 4 day(s) ago. Possible causes: unknown. Severity of symptoms: At their worst the symptoms were moderate in the emergency department the symptoms are unchanged. The patient has experienced similar episodes in the past. Patient and caregiver report 4 days of nonbloody diarrhea. States is leaking out and difficult to control. Patient also reports generalized weakness and malaise. Reports on antibiotics 2 weeks ago for suspected C. difficile or intestinal infection. Denies fever or chills. No vomiting. Caregiver reports weakness and recurrent falls. Has decreased the amount of alcohol that he is taking it, went from 18 drinks a day to 3 or 4 drinks a day.. Historical: - Allergies: 11:17 Polio Virus Vaccines; ap3 - PMHx: 11:17 borderline DM; COPD; Dementia; History of urinary tract infection; Hypertension; ap3 - PSHx: 11:17 multiple ortho; ap3 - Immunization history:: Client reports receiving the 2nd dose of the Covid vaccine, Flu vaccine is up to date. - Infectious Disease History:: Denies. - Social history:: Smoking status: Patient/guardian denies using tobacco, the patient reports quitting approximately 15 years ago. - Family history:: not pertinent. - Hospitalizations: : No recent hospitalization is reported. ROS: 12:06 Constitutional: Negative for fever, chills, and weight loss, Cardiovascular: Negative rn for chest pain, palpitations, and edema, Respiratory: Negative for shortness of breath, cough, wheezing, and pleuritic chest pain, Abdomen/GI: Positive for nausea and diarrhea MS/Extremity: Negative for injury and deformity, Skin: Negative for injury, rash, and discoloration, Neuro: Positive for generalized weakness and malaise Exam: 12:06 Constitutional: This is a well developed, well nourished patient who is awake, alert, rn and in no acute distress. ENT: Dry mucous membranes Cardiovascular: Regular rate and rhythm. No pulse deficits. Abdomen/GI: Soft, nontender Skin: No open wounds or decubitus ulcers Neuro: Awake and alert, GCS 15 Vital Signs: 11:14 BP 123 / 75; Pulse 92; Resp 17; Temp 97.7(O); Pulse Ox 100% on R/A; Weight 74.84 kg; ap3 Height 5 ft. 10 in. ; 11:14 Body Mass Index 23.67 (74.84 kg, 177.8 cm) ap3 MDM: 11:17 Medical Screening Exam initiated rn 14:20 Differential diagnosis: Nonspecific abd pain, Colitis, C. difficile colitis, rn inflammatory colitis. Data reviewed: vital signs, nurses notes, lab test result(s), radiologic studies, CT scan, and as a result, I will admit patient. Consideration of Admission/Observation Patient was admitted/placed on observation. Escalation of care including admission/observation considered. Management of patient was discussed with the following: Customs Compliance Manager: Discussed case with Dr. Alarcon, who would like patient admitted with p.o. vancomycin and isolation precautions.. Counseling: I had a detailed discussion with the patient and/or guardian regarding the historical points, exam findings, and any diagnostic results supporting the discharge/admit diagnosis, lab results, radiology results, the need for further work-up and treatment in the hospital. 10/22 11:21 Order name: CBC with Diff; Complete Time: 13:08 rn 10/22 11:21 Order name: CMP; Complete Time: 13:08 rn 10/22 11:21 Order name: Lipase; Complete Time: 13:08 rn 10/22 11:21 Order name: Stool Culture rn 10/22 11:21 Order name: CDIFF rn 10/22 11:21 Order name: CT Abd/Pelvis - IV Contrast Only; Complete Time: 13:08 rn 10/22 11:35 Order name: CT Head Brain wo Cont; Complete Time: 13:08 rn 10/22 11:21 Order name: IV Saline Lock; Complete Time: 11:36 rn 10/22 11:21 Order name: Labs collected and sent; Complete Time: 11:36 rn Administered Medications: 12:08 Drug: NS 0.9% IV 500 ml 500 ml IV at 1 bolus once; to be given as a bolus over 30 bp minutes Volume: 500 ml; Route: IV; Rate: 1 bolus; Site: right forearm; 13:30 Drug: Piperacillin-Tazobactam IVPB 3.375 grams IVPB once over 60 mins; (mix in NS 100 bp mL) Route: IVPB; Infused Over: 60 mins; Site: right forearm; Disposition Summary: 10/22/24 14:21 Hospitalization Ordered Notes: Hospitalization Status: Inpatient Admission rn Provider: Ken Alarcon rn [facility] rn Condition: Stable rn Problem: new rn Symptoms: are unchanged rn Bed/Room Type: Standard rn Room Assignment: 401(10/22/24 15:02) ss Diagnosis - Left sided colitis rn - Dehydration rn Forms: - Medication Reconciliation Form rn - SBAR form rn - Leadership Thank You Letter rn Signatures: Dispatcher [employer] Wes Johns MD MD rn Blanchard, Shelby, RN RN ss Wyatt Rose, RN RN Joan Callaway RN RN ap3 Corrections: (The following items were deleted from the chart) 15:02 14:21 rn ss
[2024-10-22] MEDS ORDERED: ACETAMINOPHEN 500 MG TAB PO PRN (16:29)
[2024-10-22] MEDS ORDERED: ONDANSETRON 4 MG/2 ML VIAL IV PRN (16:29)
[2024-10-22] MEDS: D5 0.45 NS 1,000 ML IV SCH (17:56)
[2024-10-22] MEDS: VANCOMYCIN HCL 125 MG CAPSULE PO SCH (20:37)
[2024-10-22] MEDS ORDERED: ALBUTEROL INHALER 200 PUFF/6.7 GM IH PRN (22:11)
[2024-10-22] MEDS ORDERED: MELOXICAM 7.5 MG TAB PO PRN (22:11)
[2024-10-22] MEDS ORDERED: IPRATROPIUM BROM 0.5MG/2.5ML IH PRN (22:11)
[2024-10-22] MEDS ORDERED: ALBUTEROL 2.5 MG/3 ML NEB SOL NEB PRN (22:56)
--- NOTE | 2024-10-22 23:43 | HP ---
Date of Admission: 10/22/2024 Chief Complaint: Diarrhea and pain. History Of Present Illness: This is a 79-year-old male patient who has history of recurrent Clostrid ium difficile colitis, has diarrhea which is chronic, but has gotten worse lately and he is also havi ng pain in the lower center chest area, which has been going on for almost a year or so and says some times this pain is really bad and sometimes it is not as bad. Denies any recent fall or injury. He came into emergency room with this, and after he was evaluated, he was admitted to hospital. The migue walker has an indwelling Bentley catheter and I have prescribed him to take vancomycin every other day fo r prevention of recurrence of Clostridium difficile colitis and so far it has helped to control it ve ry well, but upon review of hospital record, it appears that the patient was in the emergency room on October 12, after he fell down and his workup done in the emergency room reviewed including urinalysis , which was abnormal and it always will be abnormal because he has indwelling Bentley catheter and he w as given antibiotics for urinary tract infection and I suspect that actually might have contributed t o worsening of diarrhea with Clostridium difficile colitis. He denies any abdominal pain, nausea, vo miting, fever, chills. Physical Examination: Vital Signs: Height 5 feet 10 inches, weight 165 pounds. Temperature 97.2, pulse 86, respiratory ra te 18, blood pressure 129/88, oxygen saturation 97%. General: Awake, alert, oriented, not in distress. HEENT: Head atraumatic, normocephalic. Conjunctivae nonerythematous. Sclerae white. Mouth, no thr ush or edema noted. Ears/Nose, no mass, lesion, discharge noted. Neck: Supple. No JVD, lymph nodes, bruit, thyromegaly noted. Lungs: Bilateral good equal air entry. Clear to auscultation. No rhonchi. No rales. Heart: Normal heart sounds, no murmur or gallop. Abdomen: Soft, bowel sounds normal. No guarding, rigidity, tenderness, mass, hepatosplenomegaly, dis tention, or bruit noted. Extremities: No leg edema. No calf tenderness. Skin: No rash, ulcer, cellulitis. Lymphatics: No lymph node enlargement in neck, supraclavicular, infraclavicular region. Neuro: No focal neurological deficit. Chest: Unremarkable. External Genitalia: Has indwelling Bentley catheter present. Rectal: Deferred. Laboratory Data: WBC 10.4, hemoglobin 12, platelets 435. Sodium 139, potassium 2.9, chloride 106, b icarb 26, BUN 7, creatinine 0.93, glucose 143. Liver function tests unremarkable. Lipase 25. CAT s can of abdomen and pelvis shows zboh-ok-untslapy rectosigmoid colitis. CAT scan of the head, no acut e intracranial changes. Impression: 1. Clostridium difficile colitis, recurrent. 2. Hypokalemia. 3. Anemia, unspecified. 4. Benign prostatic hypertrophy with lower urinary tract symptoms. 5. Indwelling Bentley catheter. 6. Chronic obstructive pulmonary disease, severe. 7. Anxiety. 8. Depression. 9. Coronary artery disease. 10. Hypertension. 11. Type 2 diabetes mellitus. 12. Hyperlipidemia. 13. Diverticulosis. 14. Osteoarthritis, multiple sites. Plan: Admit patient to hospital for further evaluation and management of this problem. The patient is appropriate for inpatient and is expected to spend 2 midnights in hospital. His hypokalemia will be corrected using electrolyte replacement protocol. Anemia will not require any further interventio n. For recurrent Clostridium difficile colitis, we will go ahead and order stool for C difficile and we will start him on vancomycin 250 mg 4 times a day. We will order regular diet for him and I will see him tomorrow morning for followup. Diabetes does not require any intervention as he does not ta ke any medications for that. For COPD, we will continue nebulizer treatment per order and no need fo r further intervention. For osteoarthritis, he is on chronic pain medication per the paint process engineer and we will continue that. For anxiety and depression, we will continue his home medicat ion, which is duloxetine per order. No need for further intervention. The patient has indwelling Fo dorcas catheter for last 2 to 3 years for his benign prostatic hypertrophy with lower urinary tract symp toms. He has not followed up with the urologist as suggested, and as a result, now he has ended up w ith this indwelling Bentley catheter, and his urinalysis always will look abnormal because of this, so one should not treat that urinalysis result labeling as urinary tract infection. We will monitor blo od pressure, and if necessary, consider antihypertensive medication. For COPD, we will give nebulize r treatment and inhaler per order. No need for further intervention. Total time spent 80 minutes including review of last hospital admission record from 06/29/2024, revie w of emergency room visit record, communication with emergency room physician, and performing today's evaluation and management. INDRA/JUDY Voice ID: [id number]
[2024-10-23] MEDS: POTASSIUM 25 MEQ EFFERV TAB PO ONE ×3 (01:15→21:34)
[2024-10-23 03:56] LABS: C.diff Antigen/Toxin Ag pos : Tox pos (NEG : NEG); CDIFF INTERNAL NEG CONTROL White Background (WHITE BKGD); STOOL CONSISTENCY Liquid/Semi-Solid
[2024-10-23] MEDS: PANTOPRAZOLE 40MG TABLET PO SCH (05:13)
[2024-10-23 06:26] LABS: Absolute Basophils 0.1 K/uL (0-0.5); Absolute Eosinophils 0.2 K/uL (0-0.5); Absolute Lymphocytes (CBC) 1.3 K/uL (0.7-4.9); Absolute Monocytes 0.9 K/uL (0.1-1.3); Absolute Neutrophil 6.7 K/uL (1.8-8.0); Basophils % 0.6 % (0-1.3); Eosinophils % 1.7 % (0-4.4); Hematocrit 29.6 % (39.6-49.0); Hemoglobin 10.4 g/dL (13.6-17.9); Lymphocytes % 14.5 % (15.3-44.8); MCH 30.4 pg (27.0-35.0); MCV 86.8 fL (80-100); MPV 6.9 fL (7.6-11.3); Monocytes % 10.1 % (3.3-12.3); Neutrophils % 73.1 % (41.7-73.7); Nucleated Red Blood Cells % 0.1 % (0-0); Platelets 360 thou/uL (152-406); RBC Red Blood Cell Count 3.41 M/uL (4.33-5.43); Red Cell Distribution Width 16.4 % (12.1-15.2)
[2024-10-23] MEDS ORDERED: IPRATROPIUM BROM 0.5MG/2.5ML IH PRN (07:18)
[2024-10-23] MEDS: MAGNESIUM OXIDE 400 MG TAB PO SCH (09:00)
[2024-10-23] MEDS: ALPRAZOLAM 1 MG TABLET PO SCH (09:00)
[2024-10-23] MEDS: BREXPIPRAZOLE 0.5 MG PO SCH (09:00)
[2024-10-23] MEDS: BUSPIRONE HCL 5 MG TABLET PO SCH (09:34)
[2024-10-23] MEDS: TAMSULOSIN 0.4 MG SR CAP PO SCH (09:34)
[2024-10-23] MEDS: DULOXETINE 30 MG CAP PO SCH (09:35)
[2024-10-23] MEDS: MONTELUKAST 10 MG TAB PO SCH (09:36)
[2024-10-23] MEDS: TICAGRELOR 90 MG TABLET PO SCH (09:36)
[2024-10-23] MEDS: FOLBIC 1 TAB PO SCH (09:36)
[2024-10-23] MEDS: POTASSIUM CL SA 10 MEQ TAB PO SCH (09:36)
[2024-10-23] MEDS: ASPIRIN 81 MG CHEWABLE TABLET PO SCH (09:37)
[2024-10-23] MEDS: FINASTERIDE 5 MG TAB PO SCH (09:37)
[2024-10-23] MEDS: MAGNES/ALUMIN/SIMET 30ML UCUP PO SCH (09:38)
[2024-10-23] MEDS: SODIUM CHLORIDE 1 GM TAB PO SCH (09:38)
[2024-10-23] MEDS: ESCITALOPRAM OXALATE 10 MG TABLET PO SCH (09:44)
[2024-10-23 10:04] LABS: Anion Gap 11.6 mEq/L (5.0-15.0)
[2024-10-23 10:14] LABS: Potassium 2.6 mEq/L (3.5-5.1)
[2024-10-23] MEDS ORDERED: ALBUTEROL 2.5 MG/3 ML NEB SOL NEB PRN (10:55)
[2024-10-23] MEDS: KCL 20 MEQ/100 mL IVPB 100 ML IV SCH (10:55)
[2024-10-23] MEDS: HYDROCODONE/APAP 10/325 TAB PO PRN (11:10)
[2024-10-23] MEDS: METOPROLOL XL 25 MG TAB PO SCH (13:13)
[2024-10-23] MEDS: IPRATROPIUM BROM 0.5MG/2.5ML NEB SCH (14:13)
[2024-10-23 18:05] VITALS: BMI 23.8
[2024-10-23] MEDS: ATORVASTATIN 40 MG TAB PO SCH (20:00)
--- NOTE | 2024-10-23 21:44 | PN ---
Date of Progress Note: 10/23/2024 Subjective: The patient was seen this morning for followup. No new complaints or problems reported by the patient. Denies any abdominal pain, nausea, vomiting. Diarrhea is better overnight. Objective: Vital Signs: Reviewed. HEENT: Unremarkable. Lungs: Clear to auscultation. Heart: Sounds normal. Abdomen: Soft. Bowel sounds normal. No guarding, rigidity, tenderness, distention. Extremities: No leg edema. Laboratory Data: WBC 9.1, hemoglobin 10.4, platelets 360. Impression: 1. Clostridium difficile colitis, recurrent. 2. Hypokalemia. 3. Chronic obstructive pulmonary disease. Plan: We will go ahead and discontinue IV fluid. Continue vancomycin per order. Replace electrolyt e per protocol and plan is to see him tomorrow with possible discharge to go home tomorrow. Details and plan of treatment discussed with the patient. INDRA/MODL Voice ID: [id number] Report ID: [id number]
[2024-10-23 23:02] VITALS: O2SAT 100
[2024-10-24 06:54] LABS: Anion Gap 11.1 mEq/L (5.0-15.0); Magnesium 1.6 mg/dL (1.6-2.4); Potassium 3.1 mEq/L (3.5-5.1)
[2024-10-24] MEDS ORDERED: PANTOPRAZOLE 40MG TABLET PO SCH (07:30)
[2024-10-24] MEDS ORDERED: MAGNESIUM SULFATE 1 gm IVPB 1 GM/100 ML BAG IV ONE (08:00)
[2024-10-24] MEDS ORDERED: POTASSIUM 25 MEQ EFFERV TAB PO ONE (09:00)
[2024-10-24 09:18] VITALS: BP 161/87; TEMP 98
== END 2024-10-24 10:22 | disposition home or self-care (01) | DRG 373 ==
LOC: ER 11:04 → ERHOLD 14:56 → 4TH 15:16
PROVIDERS: ADMIT Internal Medicine; ATTEND Internal Medicine
DX: A04.71 Enterocolitis due to Clostridium difficile, recurrent (principal); E87.6 Hypokalemia; E86.0 Dehydration; D64.9 Anemia, unspecified; J44.9 Chronic obstructive pulmonary disease, unspecified; N40.1 Benign prostatic hyperplasia with lower urinary tract symptoms; K57.90 Diverticulosis of intestine, part unspecified, without perforation or abscess without bleeding; I25.10 Atherosclerotic heart disease of native coronary artery without angina pectoris; I10 Essential (primary) hypertension; E11.9 Type 2 diabetes mellitus without complications; E78.5 Hyperlipidemia, unspecified; F41.9 Anxiety disorder, unspecified; F32.A Depression, unspecified; M15.9 Polyosteoarthritis, unspecified; F03.90 Unspecified dementia, unspecified severity, without behavioral disturbance, psychotic disturbance, mood disturbance, and anxiety; Z87.440 Personal history of urinary (tract) infections; Z87.891 Personal history of nicotine dependence; Z88.7 Allergy status to serum and vaccine
CPT/HCPCS: 36415; 70450; 74177; 80048; 80053; 83690; 83735; 84132; 85025; 87324; 94640; 96374; 99284; J2543; J3480; J7040; J7644; J7799; Q9967

== ENCOUNTER 2025-02-15 03:25 | Inpatient (IN) | payer OTHER ==
[2025-02-15] MEDS ORDERED: ALBUTEROL 2.5 MG/3 ML NEB SOL ONE ×2 (03:31→03:41)
[2025-02-15] MEDS ORDERED: IPRATROPIUM BROM 0.5MG/2.5ML ONE (03:31)
[2025-02-15] MEDS ORDERED: Levofloxacin500mg IV 500 MG/100 ML BAG IV ONE (03:32)
[2025-02-15] MEDS ORDERED: ACETAMINOPHEN 325 MG TABLET ONE (03:32)
[2025-02-15 03:51] LABS: Absolute Lymphocytes (CBC) 1.2 K/uL (0.7-4.9); Hematocrit 33.3 % (39.6-49.0); Hemoglobin 11.3 g/dL (13.6-17.9); MCH 27.6 pg (27.0-35.0); MCHC 33.9 g/dL (32.0-36.0); MCV 81.4 fL (80-100); MPV 7.5 fL (7.6-11.3); Nucleated RBC Absolute Count 0.0 (0-0); Nucleated Red Blood Cells % 0.1 % (0-0); RBC Red Blood Cell Count 4.09 M/uL (4.33-5.43); White Blood Count 11.70 thou/uL (4.3-10.9)
[2025-02-15 03:56] LABS: PT Prothrombin Time 14.2 SECONDS (10-13.0); Protime INR 1.27
[2025-02-15 04:08] LABS: Influenza A Ag Negative; Influenza B Ag Negative; SARS-CoV-2 Antigen Rapid Res Negative (Negative)
[2025-02-15 04:16] LABS: ALT/SGPT 25.0 U/L (16-61); AST/SGOT 14.0 U/L (15-37); Albumin 3.4 g/dL (3.4-5.0); Albumin/Globulin Ratio 0.9 (1.1-1.8); Alkaline Phosphatase 100.0 U/L (45-117); Anion Gap 11.6 mEq/L (5.0-15.0); BUN Blood Urea Nitrogen 12.0 mg/dL (7-18); Bilirubin Indirect, Calculated 0.3 mg/dL (0.2-0.8); Globulin 3.9 g/dL (2.3-3.5); Glucose Level 121.0 mg/dL (74-106); Magnesium 1.8 mg/dL (1.6-2.4); NT PRO-BNP 8906.0 pg/mL (<450); Potassium 4.6 mEq/L (3.5-5.1); Troponin High Sensitivity 22.1 pg/mL (<58.9)
[2025-02-15] MEDS ORDERED: FUROSEMIDE 40 MG/4 ML VIAL ONE (04:54)
--- NOTE | 2025-02-15 05:05 | EDPHYS ---
Physician Documentation [facility] Name: Shawn Gant Age: 79 yrs Sex: Male : 1945 Arrival Date: 02/15/2025 Time: 03:25 Bed 3 Private MD: ED Physician Michaelle Rehman HPI: 02/15 03:38 This 79 yrs old Male presents to ER via Unassigned with complaints of Shortness Of sp3 Breath. 03:38 79-year-old male with history of COPD, well-known to the ED presents via EMS for sp3 shortness of breath and worsening COPD exacerbation. Patient had wheezing at home which has not been controlled by his inhaled steroids and inhaler. Patient denies any fever, chest pain, abdominal pain, eye pain, syncope, vomiting, diarrhea, known sick contacts, travel history or any other signs or symptoms on ROS at this time.. Historical: - Allergies: 03:45 Polio Virus Vaccines; bm8 - Home Meds: 03:45 alprazolam 2 mg Oral tablet [Active]; buspirone 5 mg Oral tablet [Active]; duloxetine bm8 30 mg Oral capsule [Active]; finasteride 5 mg Oral tablet [Active]; fluticasone furoate-vilanterol 100-25 mcg/dose inhalation Blister [Active]; meloxicam 15 mg Oral tablet [Active]; metoprolol tartrate 25 mg Oral tablet [Active]; montelukast 10 mg Oral tablet [Active]; tamsulosin 0.4 mg Oral capsule [Active]; - PMHx: 03:45 borderline DM; COPD; Dementia; History of urinary tract infection; Hypertension; bm8 - PSHx: 03:45 multiple ortho; bm8 - Immunization history:: Adult Immunizations up to date. - Infectious Disease History:: CDIFF, . - Social history:: Smoking status: Patient denies any tobacco usage or history of. ROS: 03:39 Constitutional: Negative for fever, chills, and weight loss, Eyes: Negative for injury, sp3 pain, redness, and discharge, Neck: Negative for injury, pain, and swelling, Cardiovascular: Negative for chest pain, palpitations, and edema, Abdomen/GI: Negative for abdominal pain, nausea, vomiting, diarrhea, and constipation, Back: Negative for injury and pain, MS/Extremity: Negative for injury and deformity, Skin: Negative for injury, rash, and discoloration, Neuro: Negative for headache, weakness, numbness, tingling, and seizure, Psych: Negative for depression, anxiety, suicide ideation, homicidal ideation, and hallucinations, Allergy/Immunology: Negative for hives, rash, and allergies, Endocrine: Negative for neck swelling, polydipsia, polyuria, polyphagia, and marked weight changes, Hematologic/Lymphatic: Negative for swollen nodes, abnormal bleeding, and unusual bruising, 03:39 All other systems are negative, Exam: 03:39 Constitutional: This is a well developed, well nourished patient who is awake, alert, sp3 and in no acute distress. Head/Face: Normocephalic, atraumatic. Eyes: Pupils equal round and reactive to light, extra-ocular motions intact. Lids and lashes normal. Conjunctiva and sclera are non-icteric and not injected. Cornea within normal limits. Periorbital areas with no swelling, redness, or edema. Neck: Trachea midline, no thyromegaly or masses palpated, and no cervical lymphadenopathy. Supple, full range of motion without nuchal rigidity, or vertebral point tenderness. No Meningismus. Chest/axilla: Normal chest wall appearance and motion. Nontender with no deformity. No lesions are appreciated. Cardiovascular: Regular rate and rhythm with a normal S1 and S2. No gallops, murmurs, or rubs. Normal PMI, no JVD. No pulse deficits. Abdomen/GI: Soft, non-tender, with normal bowel sounds. No distension or tympany. No guarding or rebound. No evidence of tenderness throughout. Back: No spinal tenderness. No costovertebral tenderness. Full range of motion. Skin: Warm, dry with normal turgor. Normal color with no rashes, no lesions, and no evidence of cellulitis. MS/ Extremity: Pulses equal, no cyanosis. Neurovascular intact. Full, normal range of motion. Neuro: Awake and alert, GCS 15, oriented to person, place, time, and situation. Cranial nerves II-XII grossly intact. Motor strength 5/5 in all extremities. Sensory grossly intact. Cerebellar exam normal. Normal gait. Psych: Awake, alert, with orientation to person, place and time. Behavior, mood, and affect are within normal limits. 03:39 Respiratory: Bilateral wheezing noted with respiratory rate between 28 and 30. Pulse oxygenation 96% on room air., 05:07 ECG was reviewed by the Attending Physician. EKG demonstrates normal sinus rhythm at 97 sp3 bpm with normal intervals, nonspecific intraventricular left-sided block with poor R wave progression QTc of [address]/T changes without evidence of acute ischemia. Vital Signs: 03:26 BP 130 / 84; Pulse 95; Resp 30; Temp 98.8; Pulse Ox 94% on 10 lpm Nebulizer Mask; bm8 Weight 81.65 kg; Height 5 ft. 10 in. ; Pain 0/10; 04:17 BP 114 / 71; Pulse 96; Resp 24; Temp 98.8; Pulse Ox 100% on Nebulizer Mask; Pain 0/10; bm8 05:17 BP 114 / 62; Pulse 97; Resp 20; Temp 98.8; Pulse Ox 100% ; Pain 0/10; bm8 06:00 BP 106 / 66; Pulse 98; Resp 20; Temp 97.6; Pulse Ox 98% on 2 lpm NC; Pain 0/10; bm8 03:26 Body Mass Index 25.83 (81.65 kg, 177.8 cm) bm8 03:26 Pain Scale: Adult bm8 04:17 Pain Scale: Adult bm8 05:17 Pain Scale: Adult bm8 06:00 Pain Scale: Adult bm8 [place] Coma Score: 03:50 Eye Response: spontaneous(4). Motor Response: obeys commands(6). Verbal Response: bm8 oriented(5). Total: 15. 04:17 Eye Response: spontaneous(4). Motor Response: obeys commands(6). Verbal Response: bm8 oriented(5). Total: 15. 06:00 Eye Response: spontaneous(4). Motor Response: obeys commands(6). Verbal Response: bm8 oriented(5). Total: 15. MDM: 03:32 Medical Screening Exam initiated sp3 03:39 Data reviewed: vital signs, nurses notes, old medical records, lab test result(s), EKG, sp3 radiologic studies. ED course: Differential diagnosis includes COPD exacerbation, bronchitis, pneumonia, CHF, acute coronary syndrome, among others. I am not highly suspicious of sepsis, shock or any other critical process. Workup will include chest x-ray, EKG and general labs coupled with IV antibiotics, and nebulizers. Patient already received Solu-Medrol en route to the ED 125 mg by EMS. Disposition pending workup and patient course.. 02/15 03:31 Order name: Basic Metabolic Panel; Complete Time: 04:51 sp3 02/15 03:31 Order name: CBC with Diff; Complete Time: 04:51 sp3 02/15 03:31 Order name: LFT's; Complete Time: 04:51 sp3 02/15 03:31 Order name: Magnesium; Complete Time: 04:51 sp3 02/15 03:31 Order name: NT PRO-BNP; Complete Time: 04:51 sp3 02/15 03:31 Order name: PT-INR; Complete Time: 04:51 sp3 02/15 03:31 Order name: Troponin HS; Complete Time: 04:51 sp3 02/15 03:31 Order name: UA Rfx Mike Cult if indicated; Complete Time: 06:14 sp3 02/15 03:32 Order name: Blood Culture Adult (2) 3 02/15 03:32 Order name: Lactate w/ 2H reflex if indic.; Complete Time: 04:51 sp3 02/15 03:39 Order name: COVID-19 Ag + Flu A+B Ag; Complete Time: 04:51 sp3 02/15 03:31 Order name: XRAY Chest (1 view) 3 02/15 03:31 Order name: EKG; Complete Time: 03:32 sp3 02/15 03:31 Order name: Cardiac monitoring; Complete Time: 03:36 sp3 02/15 03:31 Order name: EKG - Nurse/Tech; Complete Time: 03:36 sp3 02/15 03:31 Order name: IV Saline Lock; Complete Time: 03:52 sp3 02/15 03:31 Order name: Labs collected and sent; Complete Time: 03:52 sp3 02/15 03:31 Order name: O2 Per Protocol; Complete Time: 03:52 sp3 02/15 03:31 Order name: O2 Sat Monitoring; Complete Time: 03:52 sp3 Administered Medications: 03:52 Drug: DuoNeb Nebulize (3:1) (2.5 mg - 0.5 mg) 3 ml Nebulizer once Route: Nebulizer; 8 05:16 Follow up: Response: No adverse reaction bm8 03:52 Drug: Acetaminophen PO 650 mg PO once Route: PO; bm8 05:15 Follow up: Response: No adverse reaction bm8 04:01 Drug: levofloxacin IVPB 500 mg 100 ml IVPB once over 60 mins Volume: 100 ml; Route: bm8 IVPB; Infused Over: 60 mins; Site: right forearm; 05:15 Follow up: Response: No adverse reaction; IV Status: Completed infusion bm8 05:15 Drug: Furosemide IVP 40 mg IVP once; give over 2 minutes Route: IVP; Site: left bm8 antecubital; 06:01 Follow up: Response: No adverse reaction bm8 Disposition Summary: 02/15/25 05:05 Hospitalization Ordered Notes: Hospitalization Status: Inpatient Admission sp3 Provider: Seun Hubbard sp3 Location: Telemetry/MedSurg (observation) sp3 Condition: Stable sp3 Problem: an acute exacerbation sp3 Symptoms: have worsened sp3 Bed/Room Type: Standard sp3 Room Assignment: 406(02/15/25 05:44) rv1 Diagnosis - CHF exacerbation, shortness of breath, COPD sp3 Forms: - Medication Reconciliation Form sp3 - SBAR form sp3 - Leadership Thank You Letter sp3 Signatures: Dispatcher [employer] EDMS Michaelle Rehman MD MD sp3 Zoë Roper rv1 Luis Eduardo Church, RN RN bm8 Corrections: (The following items were deleted from the chart) 03:32 03:32 BLOOD CULTURE*+BA.LAB.BRZ ordered. EDMS EDMS 03:32 03:32 LACTATE+C.LAB.BRZ ordered. EDMS EDMS 05:44 05:05 sp3 rv1
--- NOTE | 2025-02-15 05:05 | ER ---
Nurse's Notes [facility] Name: Shawn Gant Age: 79 yrs Sex: Male : 1945 Arrival Date: 02/15/2025 Time: 03:25 Bed 3 Private MD: Diagnosis: CHF exacerbation, shortness of breath, COPD Presentation: 02/15 03:26 Chief complaint: Patient states: i have been feeling very short of breath for about a bm8 week. 03:26 Coronavirus screen: At this time, the client does not indicate any symptoms associated bm8 with coronavirus-19. Ebola Screen: Patient negative for fever greater than or equal to 101.5 degrees Fahrenheit, and additional compatible Ebola Virus Disease symptoms Patient denies exposure to infectious person. Patient denies travel to an Ebola-affected area in the 21 days before illness onset. No symptoms or risks identified at this time. Initial Sepsis Screen: Does the patient meet any 2 criteria? RR > 20 per min. HR > 90 bpm. Yes Does the patient have a suspected source of infection? No. Patient's initial sepsis screen is negative. Risk Assessment: Do you want to hurt yourself or someone else? Patient reports no desire to harm self or others. Onset of symptoms was February 08, 2025. 03:26 Method Of Arrival: EMS: [facility] bm8 03:26 Acuity: MARIO 2 bm8 03:48 Care prior to arrival: Medication(s) given: Solu-Medrol 125 mg IVP IV initiated. 20 GA, bm8 in the left antecubital area, Oxygen administered. via nasal cannula. Triage Assessment: 03:45 General: Appears distressed, uncomfortable, Behavior is calm, cooperative, appropriate bm8 for age. Pain: Denies pain. EENT: No deficits noted. No signs and/or symptoms were reported regarding the EENT system. Neuro: No deficits noted. Level of Consciousness is awake, alert, obeys commands, Oriented to person, place, time, situation, Appropriate for age. Cardiovascular: Denies chest pain, Heart tones S1 S2 present Capillary refill < 3 seconds in bilateral fingers Patient's skin is warm and dry. Respiratory: Reports shortness of breath labored breathing Airway is patent Respiratory effort is labored, Respiratory pattern is regular, symmetrical, hyperventilation Breath sounds are coarse bilaterally. Onset: The symptoms/episode began/occurred x 1 week, the patient has moderate shortness of breath. GI: No signs and/or symptoms were reported involving the gastrointestinal system. : No signs and/or symptoms were reported regarding the genitourinary system. Derm: No signs and/or symptoms reported regarding the dermatologic system. Musculoskeletal: No signs and/or symptoms reported regarding the musculoskeletal system. Historical: - Allergies: 03:45 Polio Virus Vaccines; bm8 - Home Meds: 03:45 alprazolam 2 mg Oral tablet [Active]; buspirone 5 mg Oral tablet [Active]; duloxetine bm8 30 mg Oral capsule [Active]; finasteride 5 mg Oral tablet [Active]; fluticasone furoate-vilanterol 100-25 mcg/dose inhalation Blister [Active]; meloxicam 15 mg Oral tablet [Active]; metoprolol tartrate 25 mg Oral tablet [Active]; montelukast 10 mg Oral tablet [Active]; tamsulosin 0.4 mg Oral capsule [Active]; - PMHx: 03:45 borderline DM; COPD; Dementia; History of urinary tract infection; Hypertension; bm8 - PSHx: 03:45 multiple ortho; bm8 - Immunization history:: Adult Immunizations up to date. - Infectious Disease History:: CDIFF, . - Social history:: Smoking status: Patient denies any tobacco usage or history of. Screenin:50 Abuse screen: Denies threats or abuse. Nutritional screening: No deficits noted. bm8 Tuberculosis screening: No symptoms or risk factors identified. 06:00 [facility] ED Fall Risk Assessment (Adult) History of falling in the last 3 months, bm8 including since admission Yes- physiologic fall (2 pts) Confusion or Disorientation Yes (5 pts) Intoxicated or Sedated No (0 pts) Impaired Gait Yes (1 pt) Mobility Assist Device Used Yes (1 pt) Altered Elimination Yes (1 pt) Score/Fall Risk Level 3 or more points = High Risk Oriented to surroundings, Maintained a safe environment, Educated pt \T\ family on fall prevention, incl call for assistance when getting out of bed, Assessed \T\ reinforced patient's understanding of fall precautions, Hourly rounding (assess needs \T\ fall precautionary measures) done, Used ambulatory aids as needed (educated on \T\ assisted with), Used gait belt as appropriate Implemented a Fall Risk Plan of Care. Assessment: 03:50 Reassessment: see triage assessment. bm8 05:17 Reassessment: Patient appears in no apparent distress at this time. Patient and/or bm8 family updated on plan of care and expected duration. Pain level reassessed. Patient is alert, oriented x 3, equal unlabored respirations, skin warm/dry/pink. Patient states feeling better. Patient states symptoms have improved. Cardiovascular: Reports shortness of breath, Denies chest pain, Heart tones S1 S2 present Capillary refill < 3 seconds in bilateral fingers Patient's skin is warm and dry. Rhythm is sinus rhythm. Respiratory: Airway is patent Respiratory effort is even, unlabored, Respiratory pattern is regular, symmetrical, Breath sounds are clear bilaterally. GI: No deficits noted. No signs and/or symptoms were reported involving the gastrointestinal system. : No deficits noted. No signs and/or symptoms were reported regarding the genitourinary system. EENT: No deficits noted. No signs and/or symptoms were reported regarding the EENT system. Derm: No deficits noted. No signs and/or symptoms reported regarding the dermatologic system. Musculoskeletal: No deficits noted. No signs and/or symptoms reported regarding the musculoskeletal system. 05:40 Reassessment: pt inadvertently dc'ed 18g RFA. cath is intact pressure dressing applied. bm8 06:00 Reassessment: Patient appears in no apparent distress at this time. Patient and/or bm8 family updated on plan of care and expected duration. Pain level reassessed. Patient is alert, oriented x 3, equal unlabored respirations, skin warm/dry/pink. Patient denies pain at this time. Patient states feeling better. Patient states symptoms have improved. Vital Signs: 03:26 BP 130 / 84; Pulse 95; Resp 30; Temp 98.8; Pulse Ox 94% on 10 lpm Nebulizer Mask; bm8 Weight 81.65 kg; Height 5 ft. 10 in. ; Pain 0/10; 04:17 BP 114 / 71; Pulse 96; Resp 24; Temp 98.8; Pulse Ox 100% on Nebulizer Mask; Pain 0/10; bm8 05:17 BP 114 / 62; Pulse 97; Resp 20; Temp 98.8; Pulse Ox 100% ; Pain 0/10; bm8 06:00 BP 106 / 66; Pulse 98; Resp 20; Temp 97.6; Pulse Ox 98% on 2 lpm NC; Pain 0/10; bm8 03:26 Body Mass Index 25.83 (81.65 kg, 177.8 cm) bm8 03:26 Pain Scale: Adult bm8 04:17 Pain Scale: Adult bm8 05:17 Pain Scale: Adult bm8 06:00 Pain Scale: Adult bm8 [place] Coma Score: 03:50 Eye Response: spontaneous(4). Motor Response: obeys commands(6). Verbal Response: bm8 oriented(5). Total: 15. 04:17 Eye Response: spontaneous(4). Motor Response: obeys commands(6). Verbal Response: bm8 oriented(5). Total: 15. 06:00 Eye Response: spontaneous(4). Motor Response: obeys commands(6). Verbal Response: bm8 oriented(5). Total: 15. ED Course: 03:26 Patient arrived in ED. lg3 03:30 Michaelle Rehman MD is Attending Physician. sp3 03:35 No provider procedures requiring assistance completed. bm8 03:35 Initial lab(s) drawn, by wi, sent to lab. First set of blood cultures drawn by wi, EKG bm8 done, by ED staff, reviewed by Michaelle Rehman MD COVID swab sent to lab. Inserted saline lock: 18 gauge in right forearm, using aseptic technique. Blood collected. Flushed with 10 mL NS Maintain EMS IV. Dressing intact. Good blood return noted. Site clean \T\ dry. Gauge \T\ site: 20g lac. Flushed with 10 mL NS. Oxygen administered via a nebulizer mask. Response to oxygen therapy: symptoms improved. 03:43 Luis Eduardo Church, RN is Primary Nurse. bm8 03:45 Triage completed. bm8 03:45 Arm band placed on right wrist. bm8 03:50 Patient has correct armband on for positive identification. Bed in low position. Call bm8 light in reach. Side rails up X2. Client placed on continuous cardiac and pulse oximetry monitoring. NIBP monitoring applied. teletypesetter monitor on. Pulse ox on. NIBP on. Door closed. Noise minimized. Warm blanket given. Pillow given. Verbal reassurance given. Head of bed elevated. 04:14 Do cath inserted, using sterile technique, 18 Fr., by wi, balloon inflated, to bm8 gravity drainage, urine specimen collected. other discontinued pt's do cath to insert clean new cath for fresh specimen collection, After insertion of new Do, clumpy cloudy urine with sediment returned. 05:04 Seun Hubbard MD is Hospitalizing Provider. sp3 06:00 Provided Education on: need for admission. bm8 06:00 Patient admitted, IV remains in place. bm8 Administered Medications: 03:52 Drug: DuoNeb Nebulize (3:1) (2.5 mg - 0.5 mg) 3 ml Nebulizer once Route: Nebulizer; bm8 05:16 Follow up: Response: No adverse reaction bm8 03:52 Drug: Acetaminophen PO 650 mg PO once Route: PO; bm8 05:15 Follow up: Response: No adverse reaction bm8 04:01 Drug: levofloxacin IVPB 500 mg 100 ml IVPB once over 60 mins Volume: 100 ml; Route: bm8 IVPB; Infused Over: 60 mins; Site: right forearm; 05:15 Follow up: Response: No adverse reaction; IV Status: Completed infusion bm8 05:15 Drug: Furosemide IVP 40 mg IVP once; give over 2 minutes Route: IVP; Site: left bm8 antecubital; 06:01 Follow up: Response: No adverse reaction bm8 Medication: 03:50 VIS not applicable for this client. bm8 Outcome: 05:05 Decision to Hospitalize by Provider. sp3 06:00 Admitted to Tele accompanied by nurse, accompanied by tech, via stretcher, room 406, bm8 with oxygen, with chart, 06:00 Condition: stable 06:00 Instructed on the need for admit, medication usage, Demonstrated understanding of instructions, follow-up care, medications, 06:25 Patient left the ED. bm8 Signatures: Jana Saldana RN RN lg3 Michaelle Rehman MD MD sp3 Luis Eduardo Church RN RN bm8 Corrections: (The following items were deleted from the chart) 06:09 06:00 BP 106 / 66; Pulse 98bpm; Resp 20bpm; Pulse Ox 98% 2 lpm Nasal Cannula; Temp bm8 98.7F; Pain 0/10, Adult; bm8
[2025-02-15 05:56] LABS: Sqamous Epithelial None Seen /HPF (None Seen); Urine Crystals Unidentified Few /HPF (None Seen); Urine Culture Reflex Order REFLEXED; Urine Microscopic Reflex YN ORDER UMIC; Urine WBC Clump Rare /HPF (None Seen); Urine Yeast (Budding) Moderate /HPF (None Seen)
--- NOTE | 2025-02-15 06:03 | P.HP ---
Certification for Inpatient Patient admitted to: Inpatient With expected LOS: >2 Midnights Patient will require the following post-hospital care: Other ([facility]) Practitioner: I am a practitioner with admitting privileges, knowledge of patient current condition, hospital course, and medical plan of care. Services: Services provided to patient in accordance with Admission requirements found in Title 42 Section 412.3 of the Code of Federal Regulations <Luca Tian - Last Filed: 02/15/25 06:27> Patient History Date of Service: 02/15/25 Reason for admission: Combined COPD exacerbation/new onset CHF exacerbation. History of Present Illness: Patient is a 79-year-old male current resident at [facility], with past medical history of CAD, type 2 diabetes mellitus, depression, hypertension, hyperlipidemia, diverticulosis, BPH, anxiety, osteoarthritis, COPD, home oxygen dependence 2 L, brought to the ER tonight due to worsening shortness of breath, with increased pulmonary congestion. Patient states he has been congested for the past week, associated with mild shortness of breath. States when he woke up at 2 AM this morning, he was gasping for breath, with severe respiratory distress both at rest and exertion, with increased pulmonary congestion which then prompted for him to be brought to the ER. Upon arrival to ER, patient received DuoNeb neb treatment, Lasix 40 mg IV, Levaquin 500 mg IV, WBC 11.70, left shift, BNP 8906. On admission assessment, patient was able to communicate in full sentences, currently on 3 L oxygen, still with increased bilateral pulmonary congestion, with crackles and rhonchi, 2+ pitting edema bilateral lower extremities. Patient states he does not have any past CHF history denies aware of. Patient is admitted inpatient with diagnosis of combined COPD/New onset CHF exacerbation. - Past Medical/Surgical History Diabetic: No -: HTN -: anxiety -: COPD (home 02 prn) -: CDIFF -: Type 2 diabetes mellitus. -: Depression. -: Hyperlipidemia. -: Rosacea. -: BPH. -: Generalized anxiety. -: Osteoarthritis. -: natali knee surgery -: hernia repair -: R hip replacement -: L elbow surgery - Family History Mother -: Lung disease, Cancer (Lung cancer.) Notes: smoker - Social History Smoking Status: Former smoker Alcohol use: No CD- Drugs: No Caffeine use: No Place of Residence: Home ([facility]) <Luca Tian - Last Filed: 02/15/25 06:27> Date of Service: 02/15/25 <Stephane Talley - Last Filed: 02/26/25 04:50> Allergies polio vaccine Allergy (Severe, Uncoded 11/16/23 20:18) Hives Home Medications: Aspirin Chewable [Aspirin Chewable*] 81 mg PO DAILY 11/16/23 Finasteride [Proscar*] 5 mg PO DAILY 11/16/23 Fluticasone/Umeclidin/Vilanter [Trelegy Ellipta 100-62.5-25] 1 puff IH DAILY 09/09 Metoprolol Succinate [Toprol Xl*] 25 mg PO DAILY 11/16/23 Montelukast [Singulair*] 10 mg PO DAILY 11/16/23 Tamsulosin [Flomax*] 2 cap PO DAILY 11/16/23 Brexpiprazole [Rexulti] 0.5 mg PO DAILY 04/15/24 Buspirone HCl [Buspar] 5 mg PO BID 04/15/24 Ipratropium/Albuterol Sulfate [Iprat-Albut 0.5-3(2.5) mg/3 ml] 3 ml IH Q4HP PRN 04/15/24 Meloxicam 15 mg PO DAILYPRN PRN 04/15/24 Sodium Chloride Tab [Sodium Chloride*] 1 gm PO DAILY 04/19/24 Atorvastatin Calcium 40 mg PO BEDTIME 10/22/24 Duloxetine HCl 30 mg PO BREAKFAST 10/22/24 Mag Hydrox/Aluminum Hyd/Simeth [Antacid-Antigas Suspension] 15 ml PO QID PRN 10/22/24 Magnesium Oxide 400 mg PO DAILY 10/22/24 Potassium Chloride 10 meq PO DAILY 10/22/24 Ticagrelor [Brilinta] 90 mg PO BID 10/22/24 Albuterol Sulfate [Albuterol Sulfate Hfa] 2 puff IH Q4H PRN 02/15/25 Cholestyramine (with Sugar) [Cholestyramine Powder] 1 pkt PO DAILY 02/15/25 Cyanocobalamin/Folic AC/Vit B6 [Folbic Tablet] 1 tab PO DAILY 02/15/25 Escitalopram Oxalate 1 tab PO DAILY 02/15/25 Magnesium Citrate [Citrate of Magnesia] 1 bot PO DAILY 02/15/25 Omeprazole [Prilosec] 1 cap PO DAILY 02/15/25 Quetiapine [Seroquel*] 50 mg PO BEDTIME 02/15/25 Tramadol HCl [Ultram] 1 tab PO BID 02/15/25 Vancomycin HCl 1 cap PO QID 02/15/25 clonazePAM [Clonazepam] 1 tab PO DAILY 02/15/25 Review of Systems 10-point ROS is otherwise unremarkable Respiratory: Shortness of Breath, SOB with Excertion Genitourinary: Other (Indwelling Bentley catheter.) <Luca Tian - Last Filed: 02/15/25 06:27> Physical Examination - Physical Exam General: Alert, Oriented x3 HEENT: Atraumatic, Normocephalic, PERRLA, Mucous membr. moist/pink, Sclerae nonicteric Neck: Supple, 2+ carotid pulse no bruit, No LAD, Without JVD or thyroid abnormality Respiratory: Diminished, Other (Bilateral crackles/ rhonchi, bilateral pulmonary congestion) Cardiovascular: Normal pulses, Normal S1 S2, No gallops, No rubs, No murmurs, Edema (2+ pitting edema bilateral lower extremities.) Capillary refill: <2 Seconds Gastrointestinal: Normal bowel sounds, Soft and benign, Non-distended, W/out hepatomegaly, No ascites, No tenderness, No masses Musculoskeletal: No clubbing, No contractures, No erythema, No tenderness, No warmth Integumentary: No breakdown, No significant lesion, No erythema, No warmth, No cyanosis Neurological: Normal speech, Normal tone, Sensation intact, Normal reflexes 2+, Normal affect Lymphatics: No axilla or inguinal lymphadenopathy Urinary: Bentley catheter - Studies Laboratory Data (last 24 hrs) 02/15/25 02/15/25 02/15/25 03:35 03:35 03:35 WBC 11.70 H Hgb 11.3 L Hct 33.3 L Plt Count 449 H PT 14.2 H INR 1.27 Sodium 131 L Potassium 4.6 BUN 12 Creatinine 1.08 Glucose 121 H Magnesium 1.8 Total Bilirubin 0.5 AST 14 L ALT 25 Alkaline Phosphatase 100 <Luca Tian - Last Filed: 02/15/25 06:27> Male Exam - Male Exam Inguinal exam: No hernias Testicular exam: Non-tender (Stated by patient.) <Luca Tian - Last Filed: 02/15/25 06:27> Assessment and Plan - Plan Patient is a 79-year-old male, reports to ER profound shortness of breath, with increased pulmonary congestion. Patient admitted to inpatient medical surgical with diagnosis of combined COPD/new onset CHF exacerbation. (1)Combined COPD exacerbation/New onset CHF exacerbation. Patient has history of COPD, but states he does not have any prior history of CHF. Patient BNP 8906, with 2+ pitting edema bilateral lower extremities. Increased bilateral pulmonary congestion. -Ordered DuoNeb nebulizer treatment every 4 hours. Increased bilateral pulmonary congestion with crackles and rhonchi. -Lasix 40 mg IV daily. Patient received initial dose of Lasix 40 mg IV in ER. -Levaquin 500 mg p.o. daily. -Prednisone 20 mg p.o. daily. -Carvedilol 3.125 p.o. twice daily. -Order echocardiogram. -Consult ophthalmic lens inspector. -Consult vender. -Daily weight and strict I&0. -Oxygen at 3 L via nasal cannula, can be titrated to maintain O2 saturation 90% and above. (2) DVT prophylaxis. - Lovenox 40 mg subcu daily. (3)Chronic type 2 diabetes mellitus. - Moderate sliding scale coverage, ACHS. (4)Explained the entire treatment plan to the patient, solicit questions answered and voiced understanding. Discharge Plan: Other (Will be discharged to assisted living) Plan to discharge in: Greater than 2 days - Advance Directives Does patient have a Living Will: No Does patient have a Durable POA for Healthcare: Yes - Code Status/Comfort Care Code Status Assessed: Yes Code Status: Do Not Attempt Resuscitat (Patient has opted to be DNR/DNI.) Critical Care: No Time Spent Managing Pts Care (In Minutes): 55 <DemondaltheaLuca - Last Filed: 02/15/25 06:27> - Problems (Diagnosis) (1) Acute on chronic diastolic (congestive) heart failure Status: Acute (2) COPD exacerbation Onset Date: 04/11/16 Status: Acute (3) Dyspnea Onset Date: 04/11/16 Status: Acute (4) HLD (hyperlipidemia) Status: Acute (5) NSTEMI (non-ST elevated myocardial infarction) Status: Acute <Stephane Talley - Last Filed: 02/26/25 04:50> Date of Service: 02/15/25 Chart has been reviewed. Events of the last 24 hours have been noted. Case discussed with XENIA. I performed a substantial part of the MDM during this patient's care today. I personally made or approved the documented management plan and acknowledge its risk of complications. I agree with the findings and documentation provided in the XENIA's notes <Stephane Talley - Last Filed: 02/26/25 04:50>
--- NOTE | 2025-02-15 06:54 | RAD REPORT ---
PROCEDURE: XR Chest, 1 View CLINICAL INDICATION: The patient is 79 years old and is Male; COPD Bed Name: 3 TECHNIQUE: Frontal view of the chest. COMPARISON: 10/12/2024 chest radiograph FINDINGS: LUNGS: Chronic interstitial lung markings redemonstrated bilaterally with medial bibasilar airspace opacities, favoring atelectasis. Otherwise, no focal consolidation. PLEURAL SPACE: No appreciable pleural effusion or pneumothorax. MEDIASTINUM: Stable cardiomediastinal silhouette. BONES/JOINTS: Multilevel remote posterior lateral left-sided rib fractures redemonstrated. Spondylo sis. VASCULATURE: Calcified atherosclerosis of the thoracic aorta. IMPRESSION: Chronic interstitial lung markings redemonstrated bilaterally with medial bibasilar airspace opacitie s, favoring subsegmental atelectasis. Otherwise, no acute chest findings. Electronically signed by: Fredrick Mchugh MD 02/15/2025 06:08 AM CDT RP Due to temporary technical issues with the PACS/[employer] reporting system, reports are being camelia d by the in-house radiologist without review as a courtesy to ensure prompt reporting. The interpreting radiologist is fully responsible for the content of the report. Transcribed Date/Time: 02/15/2025 6:53 AM
[2025-02-15] MEDS: INSULIN REGULAR (HUMAN) 100 UNIT/ML SQ SCH (07:30)
[2025-02-15 07:34] VITALS: BMI 25.8
[2025-02-15] MEDS: predniSONE 20 MG TAB PO SCH (08:38)
[2025-02-15] MEDS: FUROSEMIDE 40 MG/4 ML VIAL IV SCH (08:38)
[2025-02-15] MEDS: ASPIRIN EC 81 MG TAB PO SCH (08:38)
[2025-02-15] MEDS: ENOXAPARIN 40 MG/0.4 ML SQ SCH (08:38)
[2025-02-15] MEDS: ALBUTEROL 2.5 MG/3 ML NEB SOL NEB SCH (09:03)
[2025-02-15] MEDS: IPRATROPIUM BROM 0.5MG/2.5ML NEB SCH (09:04)
[2025-02-15] MEDS: MAGNESIUM SULFATE 1 gm IVPB 1 GM/100 ML BAG IV ONE (11:04)
[2025-02-15] MEDS: levoFLOXacin 500 MG TAB PO SCH (20:25)
--- NOTE | 2025-02-15 21:09 | CON ---
Date of Consultation: 02/15/2025 Reason For Consultation: CHF. History Of Present Illness: A 79-year-old male has history of significant coronary artery disease, w as sent to [facility] for bypass, but he ended up having a PCI because he was determined to be very h igh risk to recover from the surgery. Has history of diabetes, hypertension, dyslipidemia, brought i nto the emergency room with significant shortness of breath, orthopnea, lower extremity edema. After Lasix, he diuresed significant amount of fluids and he is feeling better. Denies having any chest p ain. Past Medical History: As outlined above in the HPI. Medications: Refer to reconciliation sheet for detailed list. Allergies: NO KNOWN DRUG ALLERGIES. Family History: No premature coronary artery disease or cancer. Social History: Does not smoke or drink. Does not use any drugs. Review of Systems: All systems reviewed and they are negative except as mentioned in HPI. Physical Examination: Vital Signs: Reviewed. Head and Neck: Pupils are equal, reactive to light. Intact eye movements. Mild JVD elevation. Lungs: Decreased breathing sounds with crackles in bases. No accessory muscle use or muscle retract ion. Heart: Irregular. No extra sounds. Abdomen: Soft, nontender. Bowel sounds positive. No organomegaly. No rigidity or rebound. Extremities: No edema, clubbing, or cyanosis. Intact pulses. Skin: No rash. No nodules. Neurologic: Alert, awake, oriented x3. No acute focal deficits appreciated. Investigations: BUN 12, creatinine 1.08. His troponin is 22. Assessment/recommendations: 1. Acute congestive heart failure exacerbation, unknown recent ejection fraction. Obtain an echo on Monday and he is putting out large amount of fluids on Lasix, however, his blood pressure is on the s oft side now. Decrease the Lasix dose to 20 mg IV q.12 hours. Monitor BUN, creatinine, electrolytes , and hold Coreg until the patient is diuresed well as his blood pressure is running on the low side. 2. Coronary artery disease, severe, unsure what was done on him in [facility]. We will obtain record s and plan accordingly. This patient might need coronary angiogram and further percutaneous coronary interventions because as he mentioned, he had only 1 artery fixed at [facility] with percutaneous co ronary intervention. 3. Chronic obstructive pulmonary disease with acute exacerbation, on antibiotics, bronchodilators, an d steroids. Doing well. We will monitor the patient with you. Thank you for the consult. AGUILAR Voice ID: [id number] Report ID: [id number]
[2025-02-15] MEDS: MORPHINE 2 MG/ML SYR IV ONE (21:51)
[2025-02-16] MEDS: TRAMADOL HCL 50 MG TAB PO SCH (01:26)
[2025-02-16] MEDS: QUETIAPINE 25 MG TAB PO SCH (01:27)
[2025-02-16] MEDS: CALCIUM CARBONATE CHEW 500MG TAB PO PRN (01:27)
[2025-02-16] MEDS: METOPROLOL TARTRATE 5 MG/5 ML INJ IV STA (02:20)
[2025-02-16] MEDS: MAGNESIUM SULFATE 1 gm IVPB 1 GM/100 ML BAG IV ONE (02:20)
[2025-02-16 04:58] LABS: Absolute Lymphocytes (CBC) 0.7 K/uL (0.7-4.9); Hematocrit 27.6 % (39.6-49.0); Hemoglobin 9.6 g/dL (13.6-17.9); MCH 27.8 pg (27.0-35.0); MCHC 34.7 g/dL (32.0-36.0); MCV 80.2 fL (80-100); MPV 7.4 fL (7.6-11.3); Nucleated RBC Absolute Count 0.0 (0-0); Nucleated Red Blood Cells % 0.0 % (0-0); RBC Red Blood Cell Count 3.44 M/uL (4.33-5.43); White Blood Count 12.30 thou/uL (4.3-10.9)
[2025-02-16 05:35] LABS: NT PRO-BNP 9409.0 pg/mL (<450)
[2025-02-16 05:40] LABS: ALT/SGPT 21 U/L (16-61); Albumin 2.9 g/dL (3.4-5.0); Albumin/Globulin Ratio 0.8 (1.1-1.8); Alkaline Phosphatase 73 U/L (45-117); Anion Gap 10.7 mEq/L (5.0-15.0); BUN Blood Urea Nitrogen 20 mg/dL (7-18); Globulin 3.6 g/dL (2.3-3.5); Glucose Level 137 mg/dL (74-106); Magnesium 2.3 mg/dL (1.6-2.4); Potassium 3.7 mEq/L (3.5-5.1)
[2025-02-16 05:41] LABS: Troponin High Sensitivity 125.3 pg/mL (<58.9)
[2025-02-16 05:44] LABS: AST/SGOT < 10 U/L (15-37)
--- NOTE | 2025-02-16 06:19 | P.PN ---
Date of Service: 02/16/25 Nurse called and informed me that field operations technician had called her stating patient was in sinus tach, and had 5 runs of V. tach. I immediately went and saw the patient and assessed patient, patient was fully awake, alert oriented x 3, he denies of any chest pain, shortness of breath, complaint of chronic back pain, and requested for some pain medication. Order for metoprolol 5 mg IV x 1, EKG, stat troponin, and patient currently has cardiology consult. Patient troponin resulted by 125.3, patient back to sinus rhythm with heart rate in the 80s. Patient still denies of any chest pain or shortness of breath. Requested for repeat troponin 8 hours.
--- NOTE | 2025-02-16 08:57 | RAD REPORT ---
EXAMINATION: ONE VIEW CHEST XR CLINICAL INDICATION: Male, 79 years old.,pneumonia TECHNIQUE: Frontal chest projection is submitted. Examination is limited by patient positioning and t echnique. COMPARISON: 02/15/2025 FINDINGS: The lungs are diffusely emphysematous but grossly clear. No pneumothorax or sizable effusion. The he art is normal in size. Mediastinal contours are unremarkable. Deformities along the left ribs again seen, suggesting sequelae of remote trauma or surgical intervention. IMPRESSION: No acute intrathoracic abnormalities. Stable changes of COPD.
[2025-02-16] MEDS ORDERED: TRAMADOL HCL 50 MG TAB PO SCH (09:00)
[2025-02-16] MEDS ORDERED: ASPIRIN 81 MG CHEWABLE TABLET PO SCH (09:00)
[2025-02-16] MEDS: clonazePAM 1 MG TAB PO SCH (09:00)
[2025-02-16] MEDS ORDERED: HOME MED 1 EA UNK (Omeprazole [Prilosec] 40 MG Capsule.Dr) PO SCH (09:00)
[2025-02-16] MEDS: POTASSIUM CL SA 10 MEQ TAB PO ONE (09:30)
[2025-02-16] MEDS: FOLBIC 1 TAB PO SCH (09:30)
[2025-02-16] MEDS: PANTOPRAZOLE 40MG TABLET PO SCH (09:30)
[2025-02-16] MEDS: TAMSULOSIN 0.4 MG SR CAP PO SCH (09:30)
[2025-02-16] MEDS: MONTELUKAST 10 MG TAB PO SCH (09:30)
[2025-02-16] MEDS: FINASTERIDE 5 MG TAB PO SCH (09:31)
[2025-02-16] MEDS: BUSPIRONE HCL 5 MG TABLET PO SCH (09:31)
[2025-02-16] MEDS: DULOXETINE 30 MG CAP PO SCH (09:31)
[2025-02-16] MEDS: ESCITALOPRAM 20 MG TAB PO SCH (09:32)
[2025-02-16] MEDS: FUROSEMIDE 20 MG/ 2ML VIAL IV SCH (09:34)
[2025-02-16] MEDS: ARFORMOTEROL TARTRATE 15 MCG/2 ML VIAL.NEB NEB SCH (10:55)
[2025-02-16] MEDS ORDERED: ALBUTEROL 2.5 MG/3 ML NEB SOL NEB PRN (10:56)
--- NOTE | 2025-02-16 11:16 | P.CNS ---
Date of Consult: 02/16/25 Chief Complaint: Combined COPD exacerbation/new onset CHF exacerbation. History of Present Illness: Patient is 79 years of age with a history of COPD/asthma has been sick for the past week complaining of worsening dyspnea possible underlying CHF was admitted to the hospital he is compliant with his medication denies any fever chills chest pain Allergies polio vaccine Allergy (Severe, Uncoded 11/16/23 20:18) Hives Home Medications: Aspirin Chewable [Aspirin Chewable*] 81 mg PO DAILY 11/16/23 Finasteride [Proscar*] 5 mg PO DAILY 11/16/23 Fluticasone/Umeclidin/Vilanter [Trelegy Ellipta 100-62.5-25] 1 puff IH DAILY 11/16/23 Metoprolol Succinate [Toprol Xl*] 25 mg PO DAILY 11/16/23 Montelukast [Singulair*] 10 mg PO DAILY 11/16/23 Tamsulosin [Flomax*] 2 cap PO DAILY 11/16/23 Brexpiprazole [Rexulti] 0.5 mg PO DAILY 04/15/24 Buspirone HCl [Buspar] 5 mg PO BID 04/15/24 Ipratropium/Albuterol Sulfate [Iprat-Albut 0.5-3(2.5) mg/3 ml] 3 ml IH Q4HP PRN 04/15/24 Meloxicam 15 mg PO DAILYPRN PRN 04/15/24 Sodium Chloride Tab [Sodium Chloride*] 1 gm PO DAILY 04/19/24 Atorvastatin Calcium 40 mg PO BEDTIME 10/22/24 Duloxetine HCl 30 mg PO BREAKFAST 10/22/24 Mag Hydrox/Aluminum Hyd/Simeth [Antacid-Antigas Suspension] 15 ml PO QID PRN 10/22/24 Magnesium Oxide 400 mg PO DAILY 10/22/24 Potassium Chloride 10 meq PO DAILY 10/22/24 Ticagrelor [Brilinta] 90 mg PO BID 10/22/24 Albuterol Sulfate [Albuterol Sulfate Hfa] 2 puff IH Q4H PRN 02/15/25 Cholestyramine (with Sugar) [Cholestyramine Powder] 1 pkt PO DAILY 02/15/25 Cyanocobalamin/Folic AC/Vit B6 [Folbic Tablet] 1 tab PO DAILY 02/15/25 Escitalopram Oxalate 1 tab PO DAILY 02/15/25 Magnesium Citrate [Citrate of Magnesia] 1 bot PO DAILY 02/15/25 Omeprazole [Prilosec] 1 cap PO DAILY 02/15/25 Quetiapine [Seroquel*] 50 mg PO BEDTIME 02/15/25 Tramadol HCl [Ultram] 1 tab PO BID 02/15/25 Vancomycin HCl 1 cap PO QID 02/15/25 clonazePAM [Clonazepam] 1 tab PO DAILY 02/15/25 - Past Medical/Surgical History Diabetic: No -: HTN -: anxiety -: COPD (home prn) -: CDIFF -: Type 2 diabetes mellitus. -: Depression. -: Hyperlipidemia. -: Rosacea. -: BPH. -: Generalized anxiety. -: Osteoarthritis. -: natali knee surgery -: hernia repair -: R hip replacement -: L elbow surgery - Family History Mother Medical History: Lung disease, Cancer Notes: smoker - Social History Smoking Status: Unknown if ever smoked Alcohol use: No CD- Drugs: No Caffeine use: No Place of Residence: Care Home Review of Systems 10-point ROS is otherwise unremarkable General: Weakness Respiratory: Cough, Shortness of Breath Physical Examination Temp Pulse Resp BP Pulse Ox 97.5 F 87 18 120/76 99 02/16/25 08:00 02/16/25 09:34 02/16/25 08:00 02/16/25 09:34 02/16/25 08:00 General: Alert, Oriented x3 Respiratory: Clear to auscultation bilaterally Cardiovascular: No edema, Regular rate/rhythm, Normal S1 S2 Gastrointestinal: Normal bowel sounds, Soft and benign Musculoskeletal: No clubbing, No swelling Integumentary: No rashes, No breakdown Neurological: Normal speech - Problems (1) COPD exacerbation Onset Date: 04/11/16 Current Visit: No Status: Acute Plan: Patient is 79 years of age admitted with COPD exacerbation compliant with his inhalers appears to have a non-STEMI he has BNP is also significantly elevated stable COPD changes continue with prednisone vital signs oxygenation stable white count is normal echocardiogram is pending continue with Lasix
[2025-02-16] MEDS ORDERED: DULERA 200/5 (MOMETASONE/FORMOTEROL) INHALER IH SCH (11:17)
[2025-02-16] MEDS: METOPROLOL XL 25 MG TAB PO SCH (12:00)
[2025-02-16] MEDS: SPIRONOLACTONE 25 MG TABLET PO SCH (13:06)
[2025-02-16] MEDS: IPRATROPIUM BROM 0.5MG/2.5ML NEB SCH (13:14)
[2025-02-16] MEDS ORDERED: MORPHINE 2 MG/ML SYR IV PRN (15:33)
[2025-02-16] MEDS: TRAMADOL HCL 50 MG TAB PO PRN (16:57)
[2025-02-16] MEDS: VANCOMYCIN HCL 125 MG CAPSULE PO SCH (16:58)
[2025-02-16] MEDS ORDERED: QUETIAPINE 25 MG TAB PO SCH (21:00)
[2025-02-16] MEDS: ATORVASTATIN 40 MG TAB PO SCH (21:31)
[2025-02-16] MEDS: TICAGRELOR 90 MG TABLET PO SCH (21:31)
[2025-02-17 06:07] LABS: Absolute Lymphocytes (CBC) 1.8 K/uL (0.7-4.9); Hematocrit 33.1 % (39.6-49.0); Hemoglobin 11.0 g/dL (13.6-17.9); MCH 27.0 pg (27.0-35.0); MCHC 33.3 g/dL (32.0-36.0); MCV 81.0 fL (80-100); MPV 7.5 fL (7.6-11.3); Nucleated RBC Absolute Count 0.0 (0-0); Nucleated Red Blood Cells % 0.1 % (0-0); RBC Red Blood Cell Count 4.09 M/uL (4.33-5.43); White Blood Count 11.10 thou/uL (4.3-10.9)
[2025-02-17 06:28] LABS: ALT/SGPT 31 U/L (16-61); Albumin 3.1 g/dL (3.4-5.0); Albumin/Globulin Ratio 0.8 (1.1-1.8); Alkaline Phosphatase 76 U/L (45-117); Anion Gap 9.2 mEq/L (5.0-15.0); BUN Blood Urea Nitrogen 17 mg/dL (7-18); Globulin 3.7 g/dL (2.3-3.5); Glucose Level 104 mg/dL (74-106); Magnesium 2.0 mg/dL (1.6-2.4); Potassium 4.2 mEq/L (3.5-5.1)
[2025-02-17 06:31] LABS: AST/SGOT < 10 U/L (15-37)
[2025-02-17] MEDS: MAGNESIUM CITRATE 300 ML BOT PO SCH (08:27)
[2025-02-17] MEDS: POTASSIUM CL SA 10 MEQ TAB PO SCH (08:28)
[2025-02-17] MEDS: SODIUM CHLORIDE 1 GM TAB PO SCH (08:28)
[2025-02-17] MEDS: FLUTICASONE IH SCH (09:00)
[2025-02-17] MEDS ORDERED: HOME MED 1 EA UNK (Potassium Chloride [Potassium Chloride] 10 MEQ Capsule.Er) PO SCH (09:00)
[2025-02-17] MEDS: UMECLIDIN IH SCH (09:00)
[2025-02-17] MEDS: VILANTER IH SCH (09:00)
[2025-02-17] MEDS ORDERED: HEPARIN 10,000 UNIT/10 ML VIAL IV ONE (11:19)
[2025-02-17] MEDS ORDERED: LIDOCAINE 1% 20 ML MDV ONE (11:19)
[2025-02-17] MEDS ORDERED: HEPA 1000U/500MLS 2,000 UNIT/1,000 ML BAG IV ONE (11:19)
[2025-02-17] MEDS ORDERED: ATROPINE SULF 1 MG/10 ML SYR IV ONE (11:19)
[2025-02-17] MEDS ORDERED: HEPARIN 5000 UNIT/ML 1 ML VIAL ONE (11:19)
[2025-02-17] MEDS ORDERED: CLOPIDOGREL 75 MG TABLET ONE (11:19)
[2025-02-17] MEDS ORDERED: TICAGRELOR 90 MG TABLET PO ONE (11:20)
[2025-02-17] MEDS ORDERED: ASPIRIN 325 MG TAB ONE (11:20)
[2025-02-17] MEDS: FENTANYL CITR 100 MCG/2 ML ONE (11:33)
[2025-02-17] MEDS: MIDAZOLAM HCL 2 MG/2 ML INJ ONE (11:33)
[2025-02-17] MEDS: NA CHLORIDE 0.9% 500 ML ONE (11:33)
--- NOTE | 2025-02-17 11:52 | P.PN ---
Subjective Date of Service: 02/17/25 Chief Complaint: Combined COPD exacerbation/new onset CHF exacerbation. Subjective: No new changes, No C/O voiced, Tolerating diet, Ambulating, Improving Review of Systems 10-point ROS is otherwise unremarkable Physical Examination - Vital Signs Temperature: 97.2 F Blood Pressure: 119/72 Pulse: 71 Respirations: 16 Pulse Ox (%): 100 - Physical Exam General: Alert, In no apparent distress HEENT: Atraumatic, PERRLA, EOMI Neck: Supple, JVD not distended Respiratory: Clear to auscultation bilaterally, Normal air movement Cardiovascular: Regular rate/rhythm, Normal S1 S2 Gastrointestinal: Normal bowel sounds, No tenderness Musculoskeletal: No tenderness Integumentary: No rashes Neurological: Normal speech, Normal tone, Normal affect Lymphatics: No axilla or inguinal lymphadenopathy - Studies Microbiology Data (last 24 hrs): 02/15/25 05:15 Clean Catch Urine [place] Count - Final 02/15/25 05:15 Clean Catch Urine - Final Providencia Stuartii Medications List Reviewed: Yes Assessment And Plan - Current Problems (Diagnosis) (1) HLD (hyperlipidemia) Current Visit: No Status: Acute Plan: continue lipitor 40 mg daily lipid panel in 6-8 weeks. (2) HTN (hypertension) Current Visit: No Status: Acute Plan: continue current medications and monitor (3) NSTEMI (non-ST elevated myocardial infarction) Current Visit: No Status: Acute Plan: patient with complex CAD, plan was for bypass but patient was deemed to be a poor candidate so stent was placed in [facility]. repeat coronary angiogram continue ASA 81 mg daily continue Brilinta 90 mg po BID (4) Acute on chronic diastolic (congestive) heart failure Current Visit: Yes Status: Acute Plan: Continue lasix 20 mg IV BID Continue Aldactone 25 mg daily continue Toprol XL 25 mg daily continue to monitor input and output and electrolytes.
--- NOTE | 2025-02-17 12:32 | ECHO ---
HEIGHT: 5 ft 10 in WEIGHT: 180 lb 0 oz DATE OF STUDY: 02/17/[address]: Luca Tian NP 2-DIMENSIONAL: YES M.MODE: YES DOPPLER: YES COLOR FLOW: YES TDS: YES PORTABLE: YES DEFINITY: NO BUBBLE STUDY: NO DIAGNOSIS: NEW ONSET CONGESTIVE HEART FAILURE CARDIAC HISTORY: CATHERIZATION:YES SURGERY: NO PROSTHETIC VALVE: NO PACEMAKER: NO MEASUREMENTS (cm) DIASTOLIC (NORMALS) SYSTOLIC (NORMALS) IVSd 1.3 (0.6-1.2) LA Diam 4.2 (1.9-4.0) LVEF 30-35% LVIDd 5.2 (3.5-5.7) LVIDs 3.7 (2.0-3.5) %FS 29% LVPWd 1.3 (0.6-1.2) Ao Diam 3.2 (2.0-3.7) 2 DIMENSIONAL ASSESSMENT: RIGHT ATRIUM: NORMAL LEFT ATRIUM: NORMAL RIGHT VENTRICLE: NORMAL LEFT VENTRICLE: NORMAL TRICUSPID VALVE: MILD TRICUSPID REGURGITATION MITRAL VALVE: MILD MITRAL REGURGITATION PULMONIC VALVE: NORMAL AORTIC VALVE: MILD AORTIC STENOSIS PERICARDIAL EFFUSION: NONE AORTIC ROOT: NORMAL LEFT VENTRICULAR WALL MOTION: MODERATE GLOBAL HYPOKINESIS. DOPPLER/COLOR FLOW: DIASTOLIC DYSFUNCTION. COMMENTS: 1. MODERATELY REDUCED LEFT VENTRICULAR SYSTOLIC FUNCTION. LEFT VENTRICULAR EJECTION FRACTION 30-35%. MODERATE GLOBAL HYPOKINESIS. 2. DIASTOLIC DYSFUNCTION. 3. NORMAL FILLING PRESSURE. TECHNOLOGIST: SANDRITA TELLO
[2025-02-17 17:51] LABS: Absolute Lymphocytes (CBC) 1.5 K/uL (0.7-4.9); Hematocrit 35.3 % (39.6-49.0); Hemoglobin 11.8 g/dL (13.6-17.9); MCH 27.2 pg (27.0-35.0); MCHC 33.3 g/dL (32.0-36.0); MCV 81.7 fL (80-100); MPV 7.5 fL (7.6-11.3); Nucleated RBC Absolute Count 0.0 (0-0); Nucleated Red Blood Cells % 0.1 % (0-0); RBC Red Blood Cell Count 4.32 M/uL (4.33-5.43); White Blood Count 9.10 thou/uL (4.3-10.9)
[2025-02-17] MEDS: HEPARIN/D5W 25,000 UNIT/500 ML BAG IV PRN (18:24)
[2025-02-17 18:37] LABS: PT Prothrombin Time 13.4 SECONDS (10-13.0); PTT, Activated Partial Thromb 30.2 SECONDS (27.2-37.4); Protime INR 1.19
[2025-02-18 07:44] LABS: Absolute Lymphocytes (CBC) 1.7 K/uL (0.7-4.9); Hematocrit 33.9 % (39.6-49.0); Hemoglobin 11.6 g/dL (13.6-17.9); MCH 27.8 pg (27.0-35.0); MCHC 34.2 g/dL (32.0-36.0); MCV 81.5 fL (80-100); MPV 7.1 fL (7.6-11.3); Nucleated RBC Absolute Count 0.0 (0-0); Nucleated Red Blood Cells % 0.1 % (0-0); RBC Red Blood Cell Count 4.16 M/uL (4.33-5.43); White Blood Count 6.60 thou/uL (4.3-10.9)
[2025-02-18 08:08] LABS: ALT/SGPT 21.0 U/L (16-61); AST/SGOT 21.0 U/L (15-37); Albumin 3.1 g/dL (3.4-5.0); Albumin/Globulin Ratio 0.9 (1.1-1.8); Alkaline Phosphatase 78.0 U/L (45-117); Anion Gap 10.9 mEq/L (5.0-15.0); BUN Blood Urea Nitrogen 15.0 mg/dL (7-18); Globulin 3.6 g/dL (2.3-3.5); Glucose Level 95.0 mg/dL (74-106); Magnesium 1.9 mg/dL (1.6-2.4); Potassium 3.9 mEq/L (3.5-5.1)
--- NOTE | 2025-02-18 09:41 | P.PN ---
Subjective Date of Service: 02/17/25 Patient status post cardiac catheterization. Patient with multivessel coronary artery disease. Patient will need evaluation for CT surgery for CABG. Will call [facility] for transfer arrangements. Review of Systems 10-point ROS is otherwise unremarkable Physical Examination - Vital Signs Temperature: 97.5 F Blood Pressure: 112/69 Pulse: 86 Respirations: 17 Pulse Ox (%): 97 - Physical Exam General: Alert, In no apparent distress, Oriented x3 Respiratory: Clear to auscultation bilaterally, Normal air movement Cardiovascular: Regular rate/rhythm, Normal S1 S2, No murmurs Gastrointestinal: Normal bowel sounds, Soft and benign, Non-distended, No tenderness Musculoskeletal: No clubbing, No swelling, No tenderness Neurological: Sensation intact, Cranial nerves 3-12 intact - Studies Microbiology Data (last 24 hrs): 02/15/25 05:15 Clean Catch Urine [place] Count - Final 02/15/25 05:15 Clean Catch Urine - Final Providencia Stuartii Medications List Reviewed: Yes Assessment & Plan - Problems (Diagnosis) (1) Acute on chronic diastolic (congestive) heart failure Current Visit: Yes Status: Acute (2) COPD exacerbation Onset Date: 04/11/16 Current Visit: No Status: Acute (3) Dyspnea Onset Date: 04/11/16 Current Visit: No Status: Acute (4) HLD (hyperlipidemia) Current Visit: No Status: Acute (5) NSTEMI (non-ST elevated myocardial infarction) Current Visit: No Status: Acute - Plan 1. 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 Patient with a history of cardiomyopathy with an EF of 30 to 35%. Continue with diuresing patient aggressively. Awaiting transfer to tertiary care facility for placement. 2. Deconditioned with generalized weakness; patient with tachypnea on minimal exertion. Hopefully intervening for his multivessel disease will improve his clinical conditioning. Continue with pain control 3. Metabolic syndrome; strict blood pressure and blood sugar control. Discharge Plan: Home - Advance Directives Does patient have a Living Will: No Does patient have a Durable POA for Healthcare: Yes - Code Status/Comfort Care Code Status Assessed: Yes Code Status: Full Code (Patient has opted to be DNR/DNI.) Critical Care: No Time Spent Managing PTS Care (In Minutes): 45
--- NOTE | 2025-02-18 09:42 | P.PN ---
Date of Service: 02/18/25 Subjective Cardiology did the transfer center phone calls. Awaiting for transfer arrangements. Physical Examination - Vital Signs reviewed - Physical Exam General: Alert, In no apparent distress, Oriented x3 Respiratory: Clear to auscultation bilaterally, Normal air movement Cardiovascular: Regular rate/rhythm, Normal S1 S2, No murmurs Gastrointestinal: Normal bowel sounds, Soft and benign, Non-distended, No tenderness Musculoskeletal: No clubbing, No swelling, No tenderness Neurological: Sensation intact, Cranial nerves 3-12 intact Assessment & Plan - Problems (Diagnosis) (1) Acute on chronic diastolic (congestive) heart failure Current Visit: Yes Status: Acute (2) COPD exacerbation Onset Date: 04/11/16 Current Visit: No Status: Acute (3) Dyspnea Onset Date: 04/11/16 Current Visit: No Status: Acute (4) HLD (hyperlipidemia) Current Visit: No Status: Acute (5) NSTEMI (non-ST elevated myocardial infarction) Current Visit: No Status: Acute - Plan 1. 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 Patient with a history of cardiomyopathy with an EF of 30 to 35%. Continue with diuresing patient aggressively. Awaiting transfer to tertiary care facility for placement. 2. Deconditioned with generalized weakness; patient with tachypnea on minimal exertion. Hopefully intervening for his multivessel disease will improve his clinical conditioning. Continue with pain control 3. Metabolic syndrome; strict blood pressure and blood sugar control. Discharge Plan: Home - Advance Directives Does patient have a Living Will: No Does patient have a Durable POA for Healthcare: Yes - Code Status/Comfort Care Code Status Assessed: Yes Code Status: Full Code (Patient has opted to be DNR/DNI.) Critical Care: No Time Spent Managing PTS Care (In Minutes): 35
--- NOTE | 2025-02-18 12:08 | P.PN ---
Subjective Date of Service: 02/18/25 Chief Complaint: Combined COPD exacerbation/new onset CHF exacerbation. Subjective: No new changes Review of Systems 10-point ROS is otherwise unremarkable Physical Examination - Vital Signs Temperature: 97.5 F Blood Pressure: 112/69 Pulse: 86 Respirations: 17 Pulse Ox (%): 97 - Physical Exam General: Alert, In no apparent distress HEENT: Atraumatic, PERRLA, EOMI Neck: Supple, JVD not distended Respiratory: Clear to auscultation bilaterally, Normal air movement Cardiovascular: Regular rate/rhythm, Normal S1 S2 Gastrointestinal: Normal bowel sounds, No tenderness Musculoskeletal: No tenderness Integumentary: No rashes Neurological: Normal speech, Normal tone, Normal affect Lymphatics: No axilla or inguinal lymphadenopathy - Studies Microbiology Data (last 24 hrs): 02/15/25 05:15 Clean Catch Urine Maxwell Count - Final 02/15/25 05:15 Clean Catch Urine - Final Providencia Stuartii Medications List Reviewed: Yes Assessment And Plan - Current Problems (Diagnosis) (1) HLD (hyperlipidemia) Current Visit: No Status: Acute Plan: continue lipitor 40 mg daily lipid panel in 6-8 weeks. (2) HTN (hypertension) Current Visit: No Status: Acute Plan: continue current medications and monitor (3) NSTEMI (non-ST elevated myocardial infarction) Current Visit: No Status: Acute Plan: patient with complex CAD, plan was for bypass but patient was deemed to be a poor candidate so stent was placed in [facility]. repeat coronary angiogram shown patent LM stent but LAD was not stented, we attempted to do PCI LAD but no balloon will crack the calcium and unable to deliver cutting balloons, so patient will need to be transferred to medical center to be evaluated for CABG which will be best option and if not possible then at least PCI LAD with mechanical atherectomy. continue ASA 81 mg daily continue Brilinta 90 mg po BID (4) Acute on chronic diastolic (congestive) heart failure Current Visit: Yes Status: Acute Plan: Continue lasix 20 mg IV BID Continue Aldactone 25 mg daily continue Toprol XL 25 mg daily continue to monitor input and output and electrolytes.
[2025-02-18 14:00] VITALS: O2SAT 97
--- NOTE | 2025-02-18 22:57 | OP ---
Date of Procedure: 02/17/2025 Surgeon: Ronald Martinez Procedures Performed: 1. Selective coronary angiogram. 2. PTCA of the mid LAD. Indication For Procedure: [id number] IA. Complications: None. Estimated Blood Loss: Less than 50 cc. Access: Right radial, closed by TR band. Sedation Time: 45 minutes with 2 of Versed and 50 of fentanyl. Description Of Procedure: After risks, benefits, and alternatives were explained to the patient, the patient agreed to proceed with procedure and signed informed consent. The patient was brought back to the sleep lab technologist, prepped and draped in sterile fashion. Time-out was performed. Sedation was admini stered. Next, right radial access was obtained using ultrasound-guided micropuncture technique. Tig er 4.0 catheter was advanced over a J-wire to the aortic root. Selective angiogram was done using th e same catheter. The catheter was later exchanged for an XB LAD 3.5 mm guide. Heparin was administe red. ACT was therapeutic. Runthrough wire was passed across the lesion. We tried to predilate the lesion of the mid LAD with the regular 1.5, followed by 2.0 balloons and that was followed by 2.5 mm NC balloon. The balloon will not expand due to significant calcification, so we decided to abort the procedure. Final angiogram shows JOSE ALEBRTO-3 flow. Wire was removed. Catheter was removed over a J-wir e. Sheath was removed. TR band was applied. Hemostasis was achieved, and the patient was moved angel to Recovery in stable condition. Findings: 1. Left main: There is a stent that is extending from mid left main into proximal LAD that is patent with diffuse maybe 30% ISR. 2. LAD: There is a mid calcified 99% disease. Unable to expand with any balloon, then mid to distal mild luminal irregularities. 3. Diagonal 1: Large with proximal 70% to 80% disease. 4. Left circ: Ostially jailed by stent, then proximal 99% disease, it gives an early takeoff of larg e OM1 and OM2 that got mild luminal irregularities. Continues as an OM3 that is 100% occluded. Left -to-right collaterals into the OM3. 5. RCA: Proximal [employer] with [id number] collaterals into the RPDA. Assessment And Plan: Mild ISR of the left main stent. Significant heavy calcified mid LAD disease. Unable to explant with balloons. There is no direct TI IA here or hospital, so plan is to transfer for CT surgery evaluation and/or high-risk PCIs with supp ort with mechanical atherectomy. Significant left circ and RCA disease. Continue aggressive medical treatment for CAD. PATTI/JUDY Voice ID: [id number] Report ID: [id number]
[2025-02-18 23:49] VITALS: BP 93/59; TEMP 97.8
== END 2025-02-19 00:35 | disposition short-term general hospital (02) | DRG 981 ==
LOC: ER 03:25 → ERHOLD 05:34 → 4TH 05:58
PROVIDERS: ADMIT Hospitalist; ATTEND Hospitalist
PROC: 027034Z Dilation of Coronary Artery, One Artery with Drug-eluting Intraluminal Device, Percutaneous Approach (ICD-10-PCS; principal; 2025-02-17)
PROC: 4A023N7 Measurement of Cardiac Sampling and Pressure, Left Heart, Percutaneous Approach (ICD-10-PCS; 2025-02-17)
DX: J44.1 Chronic obstructive pulmonary disease with (acute) exacerbation (principal); I21.4 Non-ST elevation (NSTEMI) myocardial infarction; I50.33 Acute on chronic diastolic (congestive) heart failure; T82.855A Stenosis of coronary artery stent, initial encounter; I47.20 Ventricular tachycardia, unspecified; I11.0 Hypertensive heart disease with heart failure; E78.5 Hyperlipidemia, unspecified; E88.810 Metabolic syndrome; M19.90 Unspecified osteoarthritis, unspecified site; E11.9 Type 2 diabetes mellitus without complications; N40.0 Benign prostatic hyperplasia without lower urinary tract symptoms; I25.10 Atherosclerotic heart disease of native coronary artery without angina pectoris; F03.90 Unspecified dementia, unspecified severity, without behavioral disturbance, psychotic disturbance, mood disturbance, and anxiety; Z66 Do not resuscitate; Z79.82 Long term (current) use of aspirin; Z99.81 Dependence on supplemental oxygen; Z96.641 Presence of right artificial hip joint; Z79.899 Other long term (current) drug therapy; Z87.891 Personal history of nicotine dependence; Z11.52 Encounter for screening for COVID-19
CPT/HCPCS: 36415; 51702; 71045; 76937; 80048; 80053; 80076; 81001; 82947; 83605; 83735; 83880; 84100; 84145; 84484; 85025; 85347; 85610; 85730; 87040; 87077; 87086; 87088; 87186; 87428; 92920; 93005; 93306; 93454; 94640; 96365; 96375; 99152; 99285; C1725; C1877; C1893; J0461; J1644; J1650; J1815; J1938; J2003; J2250; J2270; J3010; J3475; J7040; J7512; J7605; J7613; J7644; Q9967